=== PATIENT | female | born 1945 | race Hispanic/Latino ===

== ENCOUNTER 2016-07-02 15:26 | Inpatient (IN) | payer MEDICARE, MEDICAID ==
[2016-07-02] MEDS ORDERED: Gentamicin 500 MG in Sodium Chloride 0.9% 100 ML IVPB STA (16:04)
[2016-07-02] MEDS ORDERED: Vancomycin 1gm in NS 250ml 250 ML IVPB STA (16:04)
--- NOTE | 2016-07-02 16:11 | ED PDOC ---
Arrival/HPI - General Chief Complaint: Fever Time Seen by Provider: 07/02/16 15:28 Historian: Patient - History of Present Illness Narrative History of Present Illness (Text): 07/02/16 16:07 Mandy Miranda is a 71 year old female, whose past medical history includes COPD , ventral hernia, CAD, diabetes, and hyperuricemia, presents to the emergency department complaining of fever of 102.7F since 4:30 am today morning. Patient took Tylenol at 2:30 p.m. for minimal relief. Reports of difficulty breathing, but denies any nausea, vomiting, or diarrhea. Patient was advised to present to the emergency department for further evaluation if she developed a fever. Denies headache, dizziness, chest pain, leg pain, urinary symptoms, or any other complaints at this time. Time/Duration: Other (4:30 a.m. today ) Symptom Onset: Gradual Symptom Course: Unchanged Severity Level: Mild Activities at Onset: Light Context: Home Past Medical History - Provider Review Nursing Documentation Reviewed: Yes - Infectious Disease Hx of Infectious Diseases: None - Tetanus Immunization Tetanus Immunization: Unknown - Cardiac Hx Cardiac Disorders: Yes ([place] (2010), CAD) - Pulmonary Hx Chronic Obstructive Pulmonary Disease (COPD): Yes (has home o2) - Neurological HX Cerebrovascular Accident: No - HEENT Hx HEENT Disorder: Yes Hx Cataracts: Yes (b/l sx) Other/Comment: excision of benign r ear tumor denies hearing loss, but does have numbness to right ear/ neck post sx, sx done about 10 yrs ago - Renal Hx Renal Failure: Yes - Endocrine/Metabolic Hx Diabetes Mellitus Type 2: Yes - Hematological/Oncological Hx Anemia: Yes (iron infusions) Hx Hepatitis B: Yes (serum hep b 48 yrs ago) Other/Comment: treated by dr iqbal for iron deficiency anemia - Integumentary Hx Dermatological Disorder: Yes - Musculoskeletal/Rheumatological Hx Arthritis: Yes - Gastrointestinal Hx Gastrointestinal Disorders: Yes (umbilical hernia) Other/Comment: not a candidate for hernia sx as per pt due to multiple health issues - Genitourinary/Gynecological Hx Reproductive Disorders: Yes (partial hyst) - Psychiatric Hx Substance Use: No - Surgical History Hx Hysterectomy: Yes (partial) Other/Comment: CATARACTS, polypectomy, exc right ear benign tumor - Anesthesia Hx Anesthesia Reactions: No Hx Malignant Hyperthermia: No - Suicidal Assessment Feels Threatened In Home Enviroment: No Family/Social History - Physician Review Nursing Documentation Reviewed: Yes Family/Social History: No Known Family HX Smoking Status: Former Smoker Hx Alcohol Use: No Hx Substance Use: No Hx Substance Use Treatment: No Allergies/Home Meds Allergies/Adverse Reactions: Allergies FISH Allergy (Severe, Verified 06/03/16 01:40) THROAT SWELLING iodine Allergy (Verified 06/03/16 01:40) RASH oxaprozin [From Daypro] Allergy (Verified 06/03/16 01:40) RASH Penicillins Allergy (Verified 06/03/16 01:40) ANAPHYLAXIS Home Medications: Home Meds Medication Instructions Recorded Confirmed Albuterol HFA [Ventolin HFA 90 1 puff IH QID 05/29/16 06/03/16 mcg/actuation (8 g)] Furosemide [Lasix] 1 tab PO DAILY 05/29/16 07/02/16 Insulin Detemir [Levemir] 25 unit SC HS 05/29/16 07/02/16 Metoprolol Succinate XL [Toprol XL] 50 mg PO DAILY 05/29/16 07/02/16 Fenofibrate [Tricor] 145 mg PO DAILY 07/02/16 07/02/16 Primidone [Mysoline] 50 mg PO HS 07/02/16 07/02/16 Sulfamethoxazole/Trimethoprim 1 tab PO DAILY 07/02/16 07/02/16 [Bactrim DS 800 mg-160 mg] Review of Systems - Physician Review All systems were reviewed & negative as marked: Yes - Review of Systems Constitutional: Fevers. absent: Fatigue Respiratory: SOB. absent: Cough Cardiovascular: absent: Chest Pain Gastrointestinal: absent: Normal, Abdominal Pain, Diarrhea, Nausea Genitourinary Female: Normal. absent: Dysuria Neurological: Normal. absent: Headache, Dizziness Psychiatric: Normal Physical Exam Vital Signs Reviewed: Yes Vital Signs Temp Pulse Resp BP Pulse Ox 07/02/16 16:36 102.0 F H 07/02/16 16:20 98.7 F 07/02/16 15:53 107 H 20 117/62 96 Temperature: Afebrile Blood Pressure: Normal Pulse: Tachycardic Respiratory Rate: Normal Appearance: Positive for: Non-Toxic, Comfortable Pain Distress: None Mental Status: Positive for: Alert and Oriented X 3 Finger Stick Blood Glucose: 181 - Systems Exam Head: Present: Atraumatic, Normocephalic Pupils: Present: PERRL Conjunctiva: Present: Normal Respiratory/Chest: Present: Wheezes (diminished bilateral breath sounds with bilateral wheezing. ). No: Respiratory Distress, Accessory Muscle Use Cardiovascular: Present: Regular Rate and Rhythm, Normal S1, S2. No: Murmurs Abdomen: Present: Normal Bowel Sounds. No: Tenderness, Distention, Peritoneal Signs, Rebound, Guarding Upper Extremity: Present: Normal Inspection. No: Cyanosis, Edema Lower Extremity: Present: Normal Inspection. No: Edema Neurological: Present: GCS=15, CN II-XII Intact, Speech Normal Skin: Present: Warm, Dry, Normal Color. No: Rashes Psychiatric: Present: Alert, Oriented x 3, Normal Insight, Normal Concentration Medical Decision Making ED Course and Treatment: 07/02/16 16:14 Impression: A 71 year old female who presents to the emergency department for evaluation of fever of 102.7F since 4:30 am today. Plan: -- EKG -- Labs, cardiac enzymes -- Chest X-ray -- Cipro -- Duoneb -- Gentamicin -- Solumedrol -- Vancomycin -- Blood culture -- Urine culture -- Urinalysis -- Reassess and disposition Progress Notes: 07/02/16 16:16 EKG interpreted by me: Sinus Tachycardia @ [address]/T wave changes. 07/02/16 17:48 wheezing improving, although persisitent. noted previous culture with psuedomonas senstive to gent. cipro gent, vanco ordered. dr santiago bedside accepts. - Lab Interpretations Lab Results: 07/02/16 16:50 07/02/16 16:50 Lab Results 07/02/16 16:50: WBC 10.6, RBC 3.89, Hgb 11.5 L, Hct 35.4 L, MCV 91.0, MCH 29.6, MCHC 32.5, RDW 14.3, Plt Count 313, MPV 9.1, Gran % 83.5 H, Lymph % (Auto) 5.2 L , [place] % (Auto) 7.4 H, Eos % (Auto) 3.6, Baso % (Auto) 0.3, Gran # 8.87 H, Lymph # 0.6 L, [place] # 0.8 H, Eos # 0.4, Baso # 0.03, PT 11.5, INR 1.06, APTT 26.4, pO2 197 H, VBG pH 7.44 H, VBG pCO2 53.0, VBG HCO3 36.0 H, VBG Total CO2 37.6 H, VBG O2 Sat (Calc) 98.1 H, VBG Base Excess 9.9 H, VBG Potassium 4.2, Glucose 184 H, Lactate 1.6, FiO2 21.0, Sodium 131.0 L, Potassium 4.2, Chloride 93.0 L, Carbon Dioxide 37 H, Anion Gap 10, BUN 24 H, Creatinine 1.2, Est GFR ( Amer) 53, Est GFR (Non-Af Amer) 44, Random Glucose 189 H, Calcium 8.8, Magnesium 1.5 L, Total Bilirubin 0.6, AST 25, ALT 14, Alkaline Phosphatase 88, Lactate Dehydrogenase 478, Total Creatine Kinase 38, Troponin I < 0.01, NT-Pro- B Natriuret Pep 261, Total Protein 7.0, Albumin 3.3, Globulin 3.8, Albumin/ Globulin Ratio 0.9 L, Venous Blood Potassium 4.2 07/02/16 15:38: POC Glucose (mg/dL) 181 H I have reviewed the lab results: Yes - RAD Interpretation Radiology Orders: 07/02/16 15:52 CHEST PORTABLE [RAD] Stat Hammersmith Helper: ED Physician - EKG Interpretation Interpreted by ED Physician: Yes Type: 12 lead EKG - Medication Orders Current Medication Orders: Discontinued Medications Albuterol/Ipratropium (Duoneb 3 Mg/0.5 Mg (3 Ml) Ud) 3 ml IH Q15M BRIANNA Stop: 07/02/16 16:31 Last Admin: 07/02/16 17:21 Dose: 3 ML Ciprofloxacin (Cipro 400mg/200ml Dsw) 200 mls @ 133.3 mls/hr IVPB STAT STA PRN Reason: Protocol Stop: 07/02/16 17:34 Last Admin: 07/02/16 18:07 Dose: 133.3 MLS/HR eMAR Start Stop Document 07/02/16 18:07 OCS (Rec: 07/02/16 18:07 OCS [facility]-[id number]) Intravenous Solution Start Date 07/02/16 Start Time 18:07 Vancomycin HCl (Vancomycin 1gm) 250 mls @ 167 mls/hr IVPB STAT STA PRN Reason: Protocol Stop: 07/02/16 17:33 Gentamicin Sulfate 440 mg/ (Sodium Chloride) 111 mls @ 100 mls/hr IVPB STAT STA PRN Reason: Protocol Stop: 07/02/16 17:13 Ketorolac Tromethamine (Toradol) 30 mg IVP STAT STA Stop: 07/02/16 16:32 Last Admin: 07/02/16 17:06 Dose: Not Given Non-Admin Reason: Patient Refused IVP Administration Document 07/02/16 17:06 OCS (Rec: 07/02/16 17:06 [facility]CS [facility]-[id number]) Charges for Administration # of IVP Administrations 1 Methylprednisolone (Solu-Medrol) 125 mg IVP STAT STA Stop: 07/02/16 15:54 Last Admin: 07/02/16 17:05 Dose: 125 MG IVP Administration Document 07/02/16 17:05 OCS (Rec: 07/02/16 17:05 [facility] [id number] Charges for Administration # of IVP Administrations 1 - Scribe Statement The provider has reviewed the documentation as recorded by the Inder Bravo Provider Attestation: All medical record entries made by the Inder were at my direction and personally dictated by me. I have reviewed the chart and agree that the record accurately reflects my personal performance of the history, physical exam, medical decision making, and the department course for this patient. I have also personally directed, reviewed, and agree with the discharge instructions and disposition. Disposition/Present on Arrival - Present on Arrival Any Indicators Present on Arrival: No History of DVT/PE: No History of Uncontrolled Diabetes: No Urinary Catheter: No History of Decub. Ulcer: No History Surgical Site Infection Following: None - Disposition Have Diagnosis and Disposition been Completed?: Yes Diagnosis: Sepsis, Chronic obstructive airway disease Disposition Time: 17:48 Patient Problems: Current Active Problems Problem Status Diagnosed Chronic obstructive airway disease Acute Sepsis Acute Condition: FAIR Discharge Instructions (ExitCare): Sepsis (ED) Referrals: Mahi Sherman DO [Primary Care Provider] - Follow up with primary
[2016-07-02 17:04] LABS: ADD MANUAL DIFF? NO
[2016-07-02] MEDS: Albuterol-Ipratrop 3 mg / 0.5 (3 ml) UD IH SCH ×2 (17:05→17:21)
[2016-07-02] MEDS: Ciprofloxacin 400mg/200ml D5W 200 ML IVPB STA ×2 (17:06→18:07)
[2016-07-02 17:09] LABS: BASO # 0.03 K/mm3 (0.0-2.0); BASO % 0.3 % (0.0-3.0); EOS # 0.4 (0.0-0.7); EOS % 3.6 % (1.5-5.0); GRAN # 8.87 (1.4-6.5); GRAN % 83.5 % (50.0-68.0); HEMATOCRIT 35.4 % (36.0-48.0); LYMPH # 0.6 (1.2-3.4); LYMPH % 5.2 % (22.0-35.0); MEAN CORPUSCULAR HEMOGLOBIN 29.6 pg (25.0-35.0); MEAN CORPUSCULAR HGB CONC 32.5 g/dl (31.0-37.0); MEAN PLATELET VOLUME 9.1 fl (7.0-11.0); MONO # 0.8 (0.1-0.6); MONO % 7.4 % (1.0-6.0); PLATELET COUNT 313 10^3/uL (120.0-450.0); RED CELL DISTRIBUTION WIDTH 14.3 % (11.5-14.5); WHITE BLOOD COUNT 10.6 10^3/ul (4.5-11.0)
[2016-07-02 17:12] LABS: VENOUS BLOOD GAS BASE EXCESS 9.9 mmol/L (0.0-2.0); VENOUS BLOOD PH 7.44 (7.32-7.43)
[2016-07-02 17:18] LABS: INR 1.06 (0.93-1.08); PARTIAL THROMBOPLASTIN TIME 26.4 Seconds (23.7-30.8)
[2016-07-02 17:19] LABS: ALB/GLOB RATIO 0.9 (1.1-1.8); ALKALINE PHOSPHATASE 88 U/L (38-133); ALT/SGPT 14 U/L (7-56); AST/SGOT 25 U/L (15-39); BILIRUBIN,TOTAL 0.6 mg/dL (0.2-1.3); BLOOD UREA NITROGEN 24 mg/dL (7-21); CALCIUM 8.8 mg/dL (8.4-10.5); CARBON DIOXIDE 37 mmol/L (21-33); CHLORIDE 87 mmol/L (98-107); GFR AFRICAN-AMERICAN 53; GLUCOSE,RANDOM 189 mg/dL (70-110); MAGNESIUM 1.5 mg/dL (1.7-2.2); POTASSIUM 4.2 mmol/L (3.6-5.0); SODIUM 130 mmol/L (132-148)
[2016-07-02 17:32] LABS: TROPONIN I < 0.01 ng/mL
[2016-07-02] MEDS: Insulin Detemir 100 units/ml Vial (Levemir) SC SCH (21:53)
[2016-07-02] MEDS ORDERED: MethylPREDNISolone 40 mg Vial IVP SCH (22:00)
--- NOTE | 2016-07-02 22:16 | CP.PCM.HP ---
History of Present Illness - History of Present Illness History of Present Illness: Ms. Miranda is a 71 year old female presented to ED with shortness of breath. Dyspnea present at rest. She has history of COPD. she does not have frequent exacerbation. No chest pain. She also has history of CAD. EKG did not show acute changes. cardiac enzymes not elevated. She has history of chronic anemia. No history of bleeding. She has DM II on levemir. Sugars controlled on current regimen. She had fever for 1 day. Temp was 102.7 in ED. No rigors. Present on Admission - Present on Admission Any Indicators Present on Admission: No Review of Systems - Review of Systems Systems not reviewed;Unavailable: Respiratory Distress - Constitutional Constitutional: Fatigue, Fever, Malaise, Weakness - EENT Eyes: absent: As Per HPI, Blind Spots, Blurred Vision, Change in Vision, Decreased Night Vision, Diplopia, Discharge, Dry Eye, Exophthalmos, Floaters, Irritation, Itchy Eyes, Loss of Peripheral Vision, Pain, Photophobia, Requires Corrective Lenses, Sees Flashes, Spots in Vision, Tunnel Vision, Other Visual Disturbances, Loss of Vision, Other - Breasts Breasts: absent: As Per HPI, Change in Shape, Mass, Pain, Nipple Discharge, Nipple Inversion, Skin Changes, Swelling, Other - Cardiovascular Cardiovascular: As Per HPI, Dyspnea, Rapid Heart Rate - Respiratory Respiratory: Cough, Dyspnea. absent: As Per HPI, Hemoptysis, Dyspnea on Exertion, Wheezing, Snoring, Stridor, Pain on Inspiration, Chest Congestion, Excessive Mucous Production, Change in Mucous Color, Pain with Coughing, Other - Genitourinary Genitourinary: absent: As Per HPI, Change in Urinary Stream, Difficulty Urinating, Dysuria, Flank Pain, Hematuria, Pyuria, Nocturia, Urinary Incontinence, Urinary Frequency, Urinary Hesitance, Urinary Urgency, Voiding Freq/Small Amts, Freq UTI, Hx Renal/Bladder Calculi, Hx /Renal Surgery, Bladder Distension, Other - Musculoskeletal Musculoskeletal: absent: As Per HPI, Abnormal Gait, Arthralgias, Atrophy, Back Pain, Deformity, Joint Swelling, Limited Range of Motion, Loss of Height, Muscle Cramps, Muscle Weakness, Myalgias, Neck Pain, Numbness, Radiating Pain into Limb, Stiffness, Tingling, Other - Integumentary Integumentary: absent: As Per HPI, Acne, Alopecia, Bleeding Lesions, Change in Hair, Change in Nails, Change in Pigmentation, Changing Lesions, Dry Skin, Erythema, Furuncle, Hirsutism, Lesions, New Lesions, Non-Healing Lesions, Photosensitivity, Pruritus, Rash, Skin Pain, Skin Ulcer, Sores, Striae, Swelling , Unusual Bruising, Wounds, Jaundice, Other - Neurological Neurological: absent: As Per HPI, Abnormal Gait, Abnormal Hearing, Abnormal Movements, Abnormal Speech, Behavioral Changes, Burning Sensations, Confusion, Convulsions, Disequilibrium, Dizziness, Numbness, Focal Weakness, Frequent Falls , Headaches, Lack of Coordination, Loss of Vision, Memory Loss, Paresthesias, Radicular Pain, Restless Legs, Sensory Deficit, Syncope, Tingling, Tremor, Vertigo, Weakness, Other Visual Disturbances, Other - Psychiatric Psychiatric: absent: As Per HPI, Abnormal Sleep Pattern, Anhedonia, Anxiety, Auditory Hallucinations, Behavioral Changes, Change in Appetite, Change in Libido, Confusion, Depression, Difficulty Concentrating, Hallucinations, Homicidal Ideation, Hopelessness, Irritability, Memory Loss, Mood Swings, Panic Attacks, Paranoia, Suicidal Ideation, Visual Hallucinations, Tactile Hallucinations, Other - Endocrine Endocrine: absent: As Per HPI, Change in Body Appearance, Change in Libido, Cold Intolorance, Deepening of Voice, Excessive Sweating, Fatigue, Flushing, Heat Intolorance, Increase in Ring/Shoe/Hat Size, Palpitations, Polydipsia, Polyphagia, Polyuria, Other - Hematologic/Lymphatic Hematologic: As Per HPI Past Patient History - Infectious Disease Hx of Infectious Diseases: None - Tetanus Immunizations Tetanus Immunization: Unknown - Past Medical History & Family History Past Medical History?: Yes Past Family History: Reviewed and not pertinent - Past Social History Smoking Status: Former Smoker - CARDIAC Hx Cardiac Disorders: Yes ([place] (2010), CAD) - PULMONARY Hx Chronic Obstructive Pulmonary Disease (COPD): Yes (has home o2) - NEUROLOGICAL HX Cerebrovascular Accident: No - HEENT Hx HEENT Problems: Yes Hx Cataracts: Yes (b/l sx) Other/Comment: excision of benign r ear tumor denies hearing loss, but does have numbness to right ear/ neck post sx, sx done about 10 yrs ago - RENAL Hx Renal Failure: Yes - ENDOCRINE/METABOLIC Hx Diabetes Mellitus Type 2: Yes - HEMATOLOGICAL/ONCOLOGICAL Hx Anemia: Yes (iron infusions) Hx Hepatitis B: Yes (serum hep b 48 yrs ago) - INTEGUMENTARY Hx Dermatological Problems: Yes - MUSCULOSKELETAL/RHEUMATOLOGICAL Hx Arthritis: Yes - GASTROINTESTINAL Hx Gastrointestinal Disorders: Yes (umbilical hernia) Other/Comment: not a candidate for hernia sx as per pt due to multiple health issues - GENITOURINARY/GYNECOLOGICAL Hx Reproductive Disorders: Yes (partial hyst) - PSYCHIATRIC Hx Substance Use: No - SURGICAL HISTORY Hx Hysterectomy: Yes (partial) Other/Comment: CATARACTS, polypectomy, exc right ear benign tumor - ANESTHESIA Hx Anesthesia Reactions: No Hx Malignant Hyperthermia: No Meds Allergies/Adverse Reactions: Allergies Allergy/AdvReac Type Severity Reaction Status Date / Time FISH Allergy Severe THROAT Verified 06/03/16 01:40 SWELLING iodine Allergy RASH Verified 06/03/16 01:40 oxaprozin [From Daypro] Allergy RASH Verified 06/03/16 01:40 Penicillins Allergy ANAPHYLAXIS Verified 06/03/16 01:40 Physical Exam - Constitutional Appears: Well, Non-toxic, In Acute Distress - Head Exam Head Exam: ATRAUMATIC, NORMAL INSPECTION, NORMOCEPHALIC - Eye Exam Eye Exam: Normal appearance Pupil Exam: NORMAL ACCOMODATION - ENT Exam ENT Exam: Mucous Membranes Moist, Normal Exam, Normal Oropharynx - Neck Exam Neck exam: Positive for: Normal Inspection. Negative for: Full Rom, Lymphadenopathy, Meningismus, Tenderness, Thyromegaly - Respiratory Exam Respiratory Exam: Clear to Auscultation Bilateral, Rales, Rhonchi, Respiratory Distress, NORMAL BREATHING PATTERN - Cardiovascular Exam Cardiovascular Exam: REGULAR RHYTHM, +S1, +S2 - GI/Abdominal Exam GI & Abdominal Exam: Normal Bowel Sounds, Soft - Extremities Exam Extremities exam: Positive for: normal inspection. Negative for: calf tenderness, full ROM, joint swelling, normal capillary refill, pedal edema, tenderness, pedal pulses present - Neurological Exam Neurological exam: Alert, CN II-XII Intact, Normal Gait, Oriented x3, Reflexes Normal - Psychiatric Exam Psychiatric exam: Normal Affect, Normal Mood - Skin Skin Exam: Dry, Intact, Normal Color, Warm Results - Vital Signs Recent Vital Signs: Last Vital Signs Temp 102.0 F H 07/02/16 16:36 Pulse 107 H 07/02/16 15:53 Resp 20 07/02/16 15:53 BP 117/62 04/02/17 15:53 Pulse Ox 96 07/02/16 15:53 - Labs Result Diagrams: 07/02/16 16:50 07/02/16 16:50 Labs: Laboratory Results - last 24 hr 07/02/16 21:28 POC Glucose (mg/dL) 439 H* - EKG Data When Compared to Previous EKG: No Significant Change - Impressions Impression: MEDS: lipitor 10 mg daily, Levemir 25 units QHS, sigulair, aspirin, plavix, metoprolol. Assessment & Plan - Assessment and Plan (Free Text) Assessment: 1. COPD exacerbation. 2. Fever. 3. Anemia 4. Granulocytosis, lymphopenia 5. DM II 6. Bibasilar infiltrates. Plan: Solumedrol 125 mg IV given in ED. Solumedrol 25 mg IV Q 12 hrs. Received antibiotics IV cipro, genta, vanco in ED. Blood cultures, urine cultures sent. ID consult DR. Payne. CXR reviewed. bibasilar infiltrates. Duonebs Q 6hrs. O 2 by nasal canula. Glucose check QAC, HS, levemir 25 mg Q HS, sliding scale medium dose. Heme: anemia. history of iron deficiency. anemia work up. leukocytosis likely due to infection. continue imdur, metoprolol, aspirin, plavix. Discussed with the patient, bedside. Discussed with the staff nurse.
[2016-07-03 01:31] VITALS: BMI 24.3
[2016-07-03] MEDS ORDERED: Insulin Regular 1 UNITS/0.01 ML ML SC STA ×4 (03:12→06:14)
--- NOTE | 2016-07-03 03:37 | CP.PCM.PN ---
Subjective - Date & Time of Evaluation Date of Evaluation: 07/03/16 Time of Evaluation: 03:34 - Subjective Subjective: S:Patient was seen at bedside for FSBS greater than 500 mg %. Has no complaints now. Denies sweating, stomach pain, blurry vision , polyuria. Denies eating anything extra. Medical record was reviewed. Received 25 Units of Levmir. O: Last Vital Signs 3 Temp 98.0 F 07/03/16 00:50 Pulse 91 H 07/03/16 02:00 Resp 17 07/03/16 00:50 BP 143/83 07/03/16 00:50 Pulse Ox 99 07/02/16 22:00 Awake, alert, not in distress. LUNGS: Normal breathing pattern. NEURO:Speech normal. A:Hyperglycemia. P:Will give regular insulin SC now. Repeat FSBS in on hour. Objective - Vital Signs/Intake and Output Vital Signs (last 24 hours): Temp Pulse Resp BP Pulse Ox 98.0 F 91 H 17 143/83 99 07/03/16 00:50 07/03/16 02:00 07/03/16 00:50 07/03/16 00:50 07/02/16 22:00 - Medications Medications: Current Medications Albuterol/Ipratropium (Duoneb 3 Mg/0.5 Mg (3 Ml) Ud) 3 ml IH [id number] [facility] Aspirin (Ecotrin) 81 mg PO DAILY [facility] Atorvastatin Calcium (Lipitor) 20 mg PO DAILY [facility] Clopidogrel Bisulfate (Plavix) 75 mg PO DAILY [facility] Fenofibrate (Tricor) 145 mg PO DAILY [facility] Furosemide (Lasix) 40 mg IVP DAILY [facility] Insulin Detemir (Levemir) 25 unit SC HS [facility] Last Admin: 07/02/16 21:53 Dose: 25 unit Isosorbide Mononitrate (Imdur) 60 mg PO DAILY [facility] Lisinopril (Zestril) 30 mg PO DAILY [facility] Methylprednisolone (Solu-Medrol) 30 mg IVP Q12 [facility] Metoprolol Succinate (Toprol Xl) 50 mg PO DAILY [facility] Pantoprazole Sodium (Protonix Inj) 40 mg IVP DAILY [facility] Potassium Chloride (K-Dur 20 Meq Er Tab) 40 meq PO DAILY [facility] Primidone (Mysoline) 50 mg PO HS [facility] Last Admin: 07/02/16 22:42 Dose: 50 mg Ropinirole HCl (Requip) 2 mg PO HS BRIANNA Last Admin: 07/02/16 22:42 Dose: 2 mg - Labs Labs: PT 11.5 Seconds (9.9-11.8) 07/02/16 16:50 INR 1.06 (0.93-1.08) 07/02/16 16:50 APTT 26.4 Seconds (23.7-30.8) 07/02/16 16:50
[2016-07-03] MEDS: Albuterol-Ipratrop 3 mg / 0.5 (3 ml) UD IH SCH ×4 (04:46→20:27)
[2016-07-03] MEDS: Aztreonam 1 Gm in NS 100mL 100 ML IVPB SCH ×3 (07:00→21:18)
[2016-07-03 07:55] LABS: ADD MANUAL DIFF? NO
[2016-07-03 08:05] LABS: BASO # 0.02 K/mm3 (0.0-2.0); BASO % 0.2 % (0.0-3.0); GRAN # 7.71 (1.4-6.5); GRAN % 92.6 % (50.0-68.0); HEMATOCRIT 32.7 % (36.0-48.0); LYMPH # 0.4 (1.2-3.4); LYMPH % 4.9 % (22.0-35.0); MEAN CELL VOLUME 90.1 fL (80.0-105.0); MEAN CORPUSCULAR HEMOGLOBIN 28.7 pg (25.0-35.0); MEAN CORPUSCULAR HGB CONC 31.8 g/dl (31.0-37.0); MEAN PLATELET VOLUME 9.5 fl (7.0-11.0); MONO # 0.2 (0.1-0.6); MONO % 2.3 % (1.0-6.0); PLATELET COUNT 302 10^3/uL (120.0-450.0); RED CELL DISTRIBUTION WIDTH 14.4 % (11.5-14.5); WHITE BLOOD COUNT 8.3 10^3/ul (4.5-11.0)
[2016-07-03 08:28] LABS: CALCIUM 8.7 mg/dL (8.4-10.5); POTASSIUM 4.1 mmol/L (3.6-5.0)
[2016-07-03] MEDS: Metoprolol Succinate 50 mg XL Tab PO SCH (09:04)
[2016-07-03] MEDS: Insulin Reg-HIGH-Coverage SC SCH ×4 (09:06→21:20)
--- NOTE | 2016-07-03 09:20 | RAD ---
HISTORY: sob COMPARISON: 05/29/2016 and 01/10/2016 FINDINGS: LUNGS: Chronic interstitial changes are seen PLEURA: No significant pleural effusion identified, no pneumothorax apparent. CARDIOVASCULAR: Normal. OSSEOUS STRUCTURES: No significant abnormalities. VISUALIZED UPPER ABDOMEN: Normal. OTHER FINDINGS: None. IMPRESSION: No active disease. Chronic interstitial changes
[2016-07-03] MEDS ORDERED: Potassium Chloride 20 mEq ER Tab PO SCH (10:00)
[2016-07-03] MEDS ORDERED: Insulin Reg-HIGH-Coverage SC SCH (11:30)
[2016-07-03] MEDS ORDERED: MethylPREDNISolone 40 mg Vial IVP SCH ×2 (12:00→22:00)
--- NOTE | 2016-07-03 12:00 | CARD ---
APPROVED REPORT EKG Measurement Heart [id number] <Conclusion> Sinus tachycardia Anteroseptal infarct, age undetermined Abnormal ECG
[2016-07-03] MEDS: Linezolid 600 mg in D5W 300 ml 300 ML IVPB SCH (12:21)
--- NOTE | 2016-07-03 14:02 | CT ---
PROCEDURE: CT Chest without contrast HISTORY: sob/fever COMPARISON: 03/16/2016 TECHNIQUE: Contiguous axial images were obtained through the chest without intravenous contrast enhancement. Sagittal and coronal reconstructions were performed. Radiation dose (DLP): mGy-cm. This CT exam was performed using one or more of the following dose reduction techniques: Automated exposure control, adjustment of the mA and/or kV according to patient size, and/or use of iterative reconstruction technique. FINDINGS: LUNGS: There is no change in the diffuse emphysema seen in both lungs. There is bronchiectasis in the lower lobes especially on the right. There is also some bronchiectasis in the lingular segment of the left upper lobe. The findings are not significantly changed. MEDIASTINUM: Unremarkable thoracic aorta. No aneurysm. Normal sized heart. Main pulmonary artery unremarkable. No vascular congestion. No lymphadenopathy. PLEURA: No pleural fluid. No pneumothorax. BONES: No fracture. No destructive lesion. UPPER ABDOMEN: Grossly unremarkable. OTHER FINDINGS: None. IMPRESSION: Emphysema bronchiectasis and pulmonary fibrosis unchanged
--- NOTE | 2016-07-03 16:12 | CP.PCM.CON ---
History of Present Illness - History of Present Illness History of Present Illness: 71 year old female with PMH of end-stage chronic obstructive pulmonary disease with a history of pulmonary nodules , diabetes mellitus, coronary artery disease S/P cardiac catheterization and placement of cardiac stents, hypertension initially came in to [facility] because of worsening cough associated with feeling feverish yesterday. When she arrived in the ED, she was noted to have fever of 102 F. She denies colds, no sore throats, no body aches, no headache or dizziness, no nausea or vomiting, no chest pain, no abdominal pain, no dysuria, no diarrhea. She denies recent travel outside of [place] in the past 3 months and the patient has been recently admitted in Apr 2016 in [facility] Infectious diseases consult is requested to further evaluate and manage. Review of Systems - Review of Systems All systems: reviewed and no additional remarkable complaints except (as per HPI ) Past Patient History - Infectious Disease Hx of Infectious Diseases: None - Tetanus Immunizations Tetanus Immunization: Unknown - Past Medical History & Family History Past Medical History?: Yes Past Family History: Reviewed and not pertinent - Past Social History Smoking Status: Former Smoker Alcohol: None Drugs: Denies Home Situation {Lives}: With Family - CARDIAC Hx Cardiac Disorders: Yes ([place] (2009) CAD) Hx Hypercholesterolemia: Yes Hx Hypertension: Yes - PULMONARY Hx Asthma: Yes Hx Chronic Obstructive Pulmonary Disease (COPD): Yes Hx Emphysema: Yes Hx Pneumonia: Yes Hx Respiratory Tract Infection: Yes - NEUROLOGICAL HX Cerebrovascular Accident: No - HEENT Hx HEENT Problems: Yes Hx Cataracts: Yes - RENAL Hx Renal Failure: Yes - ENDOCRINE/METABOLIC Hx Diabetes Mellitus Type 2: Yes - HEMATOLOGICAL/ONCOLOGICAL Hx Hepatitis B: Yes - INTEGUMENTARY Hx Dermatological Problems: Yes - MUSCULOSKELETAL/RHEUMATOLOGICAL Hx Arthritis: Yes Hx Falls: No Hx Gout: Yes Hx Osteoarthritis: Yes Hx Unsteady Gait: Yes (walker at home) - GASTROINTESTINAL Hx Gastrointestinal Disorders: Yes (umbilical hernia) Other/Comment: not a candidate for hernia sx as per pt due to multiple health issues - GENITOURINARY/GYNECOLOGICAL Hx Reproductive Disorders: Yes (partial hyst) - PSYCHIATRIC Hx Substance Use: No - SURGICAL HISTORY Hx Surgeries: Yes Hx Coronary Stent: Yes - ANESTHESIA Hx Anesthesia Reactions: No Hx Malignant Hyperthermia: No Meds Allergies/Adverse Reactions: Allergies Allergy/AdvReac Type Severity Reaction Status Date / Time FISH Allergy Severe THROAT Verified 06/03/16 01:40 SWELLING iodine Allergy RASH Verified 06/03/16 01:40 oxaprozin [From Daypro] Allergy RASH Verified 06/03/16 01:40 Penicillins Allergy ANAPHYLAXIS Verified 06/03/16 01:40 - Medications Medications: Current Medications Albuterol/Ipratropium (Duoneb 3 Mg/0.5 Mg (3 Ml) Ud) 3 ml IH [id number] [facility] Last Admin: 07/03/16 04:46 Dose: 3 ml Aspirin (Ecotrin) 81 mg PO DAILY [facility] Atorvastatin Calcium (Lipitor) 20 mg PO DAILY [facility] Clopidogrel Bisulfate (Plavix) 75 mg PO DAILY [facility] Fenofibrate (Tricor) 145 mg PO DAILY [facility] Furosemide (Lasix) 40 mg IVP DAILY [facility] Doxycycline Hyclate 100 mg/ (Sodium Chloride) 100 mls @ 100 mls/hr IVPB Q12 [facility] PRN Reason: Protocol Aztreonam (Azactam 1 Gm) 100 mls @ 100 mls/hr IVPB Q8 [facility] PRN Reason: Protocol Stop: 07/10/16 06:31 Linezolid (Zyvox 600mg/300ml D5w) 300 mls @ 200 mls/hr IVPB Q12 [facility] PRN Reason: Protocol Stop: 07/10/16 10:01 Insulin Detemir (Levemir) 25 unit SC [facility] Last Admin: 07/02/16 21:53 Dose: 25 unit Isosorbide Mononitrate (Imdur) 60 mg PO DAILY [facility] Lisinopril (Zestril) 30 mg PO DAILY [facility] Methylprednisolone (Solu-Medrol) 30 mg IVP Q12 [facility] Metoprolol Succinate (Toprol Xl) 50 mg PO DAILY [facility] Pantoprazole Sodium (Protonix Inj) 40 mg IVP DAILY [facility] Potassium Chloride (K-Dur 20 Meq Er Tab) 40 meq PO DAILY [facility] Primidone (Mysoline) 50 mg PO [facility] Last Admin: 07/02/16 22:42 Dose: 50 mg Ropinirole HCl (Requip) 2 mg PO [facility] Last Admin: 07/02/16 22:42 Dose: 2 mg Physical Exam - Constitutional Appears: Non-toxic, No Acute Distress - Head Exam Head Exam: NORMAL INSPECTION - ENT Exam ENT Exam: Mucous Membranes Moist - Neck Exam Neck exam: Negative for: Lymphadenopathy, Meningismus - Respiratory Exam Respiratory Exam: Decreased Breath Sounds - Cardiovascular Exam Cardiovascular Exam: +S1, +S2 - GI/Abdominal Exam GI & Abdominal Exam: Soft. absent: Tenderness Results - Vital Signs Recent Vital Signs: Last Vital Signs Temp 98.0 F 07/03/16 00:50 Pulse 91 H 07/03/16 02:00 Resp 17 07/03/16 00:50 BP 143/83 07/03/16 00:50 Pulse Ox 99 07/02/16 22:00 - Labs Result Diagrams: 07/03/16 07:40 07/03/16 07:40 Labs: Laboratory Results - last 24 hr 07/02/16 21:28 POC Glucose (mg/dL) 439 H* Assessment & Plan - Assessment and Plan (Free Text) Plan: assessment Systemic Inflammatory Response Syndrome (Fever and tachypnea) R/O sepsis secondary to healthcare-associated pneumonia in a patient with acute exacerbation of COPD history of multifocal community-acquired pneumonia end-stage chronic obstructive pulmonary disease with a history of pulmonary nodules diabetes mellitus coronary artery disease S/P cardiac catheterization and placement of cardiac stents hypertension Questionable history of penicillin allergy (rash) and Doxycycline (although she has tolerated doxycycline in past admissions) Plan started patient on Doxycycline, Zyvox and doxycycline pending blood, sputum cx, PCT; will review CXR; rapid Influenza test is negative Will monitor clinical response
--- NOTE | 2016-07-03 16:27 | DS ---
The patient is a 71-year-old, seen and examined, sitting in bed, comfortable. No chest pain, no shor tness of breath, no fever, no chills, no nausea or vomiting, no diarrhea. The patient states she spi ked fever at home and when she came to the ER her temperature [id number]. Since then, there is no spikin g fever. The patient denies any nausea or vomiting. She does have cough with occasional yellow phle gm, no hemoptysis or hematemesis. PHYSICAL EXAMINATION: VITAL SIGNS: She is afebrile today. Pulse 96, respirations 17, blood pressure 143/83. LUNGS: Bilateral diffusely decreased breath sounds, that is at baseline. expiratory rhonchi. HEART: S1, S2 audible. ABDOMEN: Soft, nontender, no rebound, no guarding. NEUROLOGIC: The patient is awake and alert, communicative. LABORATORY EXAM: WBC is 8.3, hemoglobin 10.4, hematocrit 32.7, platelets 302. Chemistry: Sodium 12 9, potassium 4.1, chloride 86, CO2 31, BUN 28, creatinine 1.3, blood sugar of 209. Lactic acid is 3. 2. Flu test is negative. X-ray of chest is negative for pneumonia and only shows chronic interstit ial changes. EKG, sinus tachycardia. ASSESSMENT AND PLAN: 1. Chronic obstructive pulmonary disease exacerbation with a spike of fever, probably bronchitis. 2. Hypertension. 3. Coronary artery disease. 4. Deconditioning and difficulty walking. 5. Ventral hernia. 6. Insulin-dependent diabetes. PLAN: We will cut down the steroids. We will get CT scan of the chest. If there is no evidence of pneumonia the patient can be discharged home on oral doxycycline and tapering dose of steroids. Enco urage out of bed to chair and ambulation. Ten Sher MD cc: [phone] TT: 07/03/2016 16:26:23 wa
[2016-07-03] MEDS: Insulin Lispro (humaLOG) MIX 75/25(10 ml) SC SCH (17:38)
[2016-07-03] MEDS: MethylPREDNISolone 40 mg Vial IVP SCH (21:17)
[2016-07-03] MEDS: Insulin Detemir 100 units/ml Vial (Levemir) SC SCH (21:21)
--- NOTE | 2016-07-03 23:13 | CP.PCM.PN ---
Subjective - Date & Time of Evaluation Date of Evaluation: 07/03/16 Time of Evaluation: 23:12 - Subjective Subjective: # 22 angiocath was inserted in left forearm Dx:Poor venous access. Objective - Vital Signs/Intake and Output Vital Signs (last 24 hours): Temp Pulse Resp BP Pulse Ox 983 F H 100 H 20 111/55 L 99 07/03/16 20:06 07/03/16 20:06 07/03/16 20:06 07/03/16 20:06 07/02/16 22:00 Intake and Output: 07/03/16 07/04/16 18:59 06:59 Intake Total 600 Output Total 400 Balance 200 - Medications Medications: Current Medications Albuterol/Ipratropium (Duoneb 3 Mg/0.5 Mg (3 Ml) Ud) 3 ml IH [id number] [facility] Last Admin: 07/03/16 20:27 Dose: 3 ml Aspirin (Ecotrin) 81 mg PO DAILY [facility] Last Admin: 07/03/16 09:04 Dose: 81 mg Atorvastatin Calcium (Lipitor) 20 mg PO DAILY [facility] Last Admin: 07/03/16 09:04 Dose: 20 mg Clopidogrel Bisulfate (Plavix) 75 mg PO DAILY [facility] Last Admin: 07/03/16 09:03 Dose: 75 mg Fenofibrate (Tricor) 145 mg PO DAILY [facility] Last Admin: 07/03/16 09:04 Dose: 145 mg Furosemide (Lasix) 40 mg IVP DAILY [facility] Last Admin: 07/03/16 09:05 Dose: 40 mg Doxycycline Hyclate 100 mg/ (Sodium Chloride) 100 mls @ 100 mls/hr IVPB Q12 [facility] PRN Reason: Protocol Last Admin: 07/03/16 22:40 Dose: 100 mls/hr Aztreonam (Azactam 1 Gm) 100 mls @ 100 mls/hr IVPB Q8 [facility] PRN Reason: Protocol Stop: 07/10/16 06:31 Last Admin: 07/03/16 21:18 Dose: 100 mls/hr Linezolid (Zyvox 600mg/300ml D5w) 300 mls @ 200 mls/hr IVPB Q12 [facility] PRN Reason: Protocol Stop: 07/10/16 10:01 Last Admin: 07/03/16 12:21 Dose: 200 mls/hr Insulin Detemir (Levemir) 25 unit SC HS [facility] Last Admin: 07/03/16 21:21 Dose: 25 unit Insulin Human Regular (Humulin R High) 0 units SC ACHS [facility] PRN Reason: Protocol Last Admin: 07/03/16 21:20 Dose: 3 units Insulin Lispro Protam/Lispro Human (Humalog Mix 75/25) 15 units SC ACBD [facility] Last Admin: 07/03/16 17:38 Dose: 15 units Isosorbide Mononitrate (Imdur) 60 mg PO DAILY [facility] Last Admin: 07/03/16 09:02 Dose: 60 mg Lisinopril (Zestril) 30 mg PO DAILY [facility] Last Admin: 07/03/16 09:03 Dose: 30 mg Methylprednisolone (Solu-Medrol) 20 mg IVP Q12 [facility] Last Admin: 07/03/16 21:17 Dose: 20 mg Metoprolol Succinate (Toprol Xl) 50 mg PO DAILY [facility] Last Admin: 07/03/16 09:04 Dose: 50 mg Pantoprazole Sodium (Protonix Inj) 40 mg IVP DAILY [facility] Last Admin: 07/03/16 09:05 Dose: 40 mg Potassium Chloride (K-Dur 20 Meq Er Tab) 40 meq PO DAILY [facility] Last Admin: 07/03/16 09:03 Dose: 40 meq Primidone (Mysoline) 50 mg PO HS [facility] Last Admin: 07/03/16 21:20 Dose: 50 mg Ropinirole HCl (Requip) 2 mg PO HS [facility] Last Admin: 07/03/16 21:20 Dose: 2 mg - Labs Labs: 07/03/16 07:40 07/03/16 07:40 PT 11.5 Seconds (9.9-11.8) 07/02/16 16:50 INR 1.06 (0.93-1.08) 07/02/16 16:50 APTT 26.4 Seconds (23.7-30.8) 07/02/16 16:50
[2016-07-04] MEDS: Linezolid 600 mg in D5W 300 ml 300 ML IVPB SCH ×3 (00:20→23:38)
[2016-07-04] MEDS: Albuterol-Ipratrop 3 mg / 0.5 (3 ml) UD IH SCH ×4 (01:46→20:34)
[2016-07-04] MEDS ORDERED: Insulin Regular 1 UNITS/0.01 ML ML SC STA ×4 (02:19→04:51)
--- NOTE | 2016-07-04 02:22 | CP.PCM.PN ---
Subjective - Date & Time of Evaluation Date of Evaluation: 07/04/16 Time of Evaluation: 02:22 - Subjective Subjective: S:Patient was seen at bedside because her fsbs was 439 mg %. Has no complaints. Denies blurry vision, stomach pain, polyuria, parasthesia. Medical record was reviewed. O: Last Vital Signs 3 Temp 97.8 F 07/04/16 00:01 Pulse 96 H 07/04/16 02:00 Resp 18 07/04/16 00:01 BP 131/66 07/04/16 00:01 Pulse Ox 96 07/04/16 00:01 Awake, alert , not in distress. LUNGS: Normal breathing pattern. A:Hyperglycemia. P:Regular insulin 15 Units SC STAT. Objective - Vital Signs/Intake and Output Vital Signs (last 24 hours): Temp Pulse Resp BP Pulse Ox 97.8 F 97 H 18 131/66 96 07/04/16 00:01 07/04/16 00:01 07/04/16 00:01 07/04/16 00:01 07/04/16 00:01 Intake and Output: 07/03/16 07/04/16 18:59 06:59 Intake Total 600 Output Total 400 Balance 200 - Medications Medications: Current Medications Albuterol/Ipratropium (Duoneb 3 Mg/0.5 Mg (3 Ml) Ud) 3 ml IH [id number] Last Admin: 07/04/16 01:46 Dose: Not Given Aspirin (Ecotrin) 81 mg PO DAILY [facility] Last Admin: 07/03/16 09:04 Dose: 81 mg Atorvastatin Calcium (Lipitor) 20 mg PO DAILY [facility] Last Admin: 07/03/16 09:04 Dose: 20 mg Clopidogrel Bisulfate (Plavix) 75 mg PO DAILY [facility] Last Admin: 07/03/16 09:03 Dose: 75 mg Fenofibrate (Tricor) 145 mg PO DAILY [facility] Last Admin: 07/03/16 09:04 Dose: 145 mg Furosemide (Lasix) 40 mg IVP DAILY [facility] Last Admin: 07/03/16 09:05 Dose: 40 mg Doxycycline Hyclate 100 mg/ (Sodium Chloride) 100 mls @ 100 mls/hr IVPB Q12 [facility] PRN Reason: Protocol Last Admin: 07/03/16 22:40 Dose: 100 mls/hr Aztreonam (Azactam 1 Gm) 100 mls @ 100 mls/hr IVPB Q8 [facility] PRN Reason: Protocol Stop: 07/10/16 06:31 Last Admin: 07/03/16 21:18 Dose: 100 mls/hr Linezolid (Zyvox 600mg/300ml D5w) 300 mls @ 200 mls/hr IVPB Q12 [facility] PRN Reason: Protocol Stop: 07/10/16 10:01 Last Admin: 07/04/16 00:20 Dose: 200 mls/hr Insulin Detemir (Levemir) 25 unit SC HS [facility] Last Admin: 07/03/16 21:21 Dose: 25 unit Insulin Human Regular (Humulin R High) 0 units SC ACHS [facility] PRN Reason: Protocol Last Admin: 07/03/16 21:20 Dose: 3 units Insulin Human Regular (Humulin R) 15 units SC STAT [facility] Stop: 07/04/16 02:20 Insulin Human Regular (Humulin R) 15 units SC STAT [facility] Stop: 07/04/16 02:21 Insulin Lispro Protam/Lispro Human (Humalog Mix 75/25) 15 units SC ACBD [facility] Last Admin: 07/03/16 17:38 Dose: 15 units Isosorbide Mononitrate (Imdur) 60 mg PO DAILY [facility] Last Admin: 07/03/16 09:02 Dose: 60 mg Lisinopril (Zestril) 30 mg PO DAILY [facility] Last Admin: 07/03/16 09:03 Dose: 30 mg Methylprednisolone (Solu-Medrol) 20 mg IVP Q12 [facility] Last Admin: 07/03/16 21:17 Dose: 20 mg Metoprolol Succinate (Toprol Xl) 50 mg PO DAILY [facility] Last Admin: 07/03/16 09:04 Dose: 50 mg Pantoprazole Sodium (Protonix Inj) 40 mg IVP DAILY [facility] Last Admin: 07/03/16 09:05 Dose: 40 mg Potassium Chloride (K-Dur 20 Meq Er Tab) 40 meq PO DAILY [facility] Last Admin: 07/03/16 09:03 Dose: 40 meq Primidone (Mysoline) 50 mg PO HS [facility] Last Admin: 07/03/16 21:20 Dose: 50 mg Ropinirole HCl (Requip) 2 mg PO HS [facility] Last Admin: 07/03/16 21:20 Dose: 2 mg - Labs Labs: 07/03/16 07:40 07/03/16 07:40 PT 11.5 Seconds (9.9-11.8) 07/02/16 16:50 INR 1.06 (0.93-1.08) 07/02/16 16:50 APTT 26.4 Seconds (23.7-30.8) 07/02/16 16:50
[2016-07-04] MEDS: Aztreonam 1 Gm in NS 100mL 100 ML IVPB SCH ×3 (05:12→21:35)
[2016-07-04] MEDS: Insulin Lispro (humaLOG) MIX 75/25(10 ml) SC SCH ×2 (07:44→19:33)
[2016-07-04] MEDS: Insulin Reg-HIGH-Coverage SC SCH ×4 (07:45→22:28)
[2016-07-04 07:56] LABS: HEMATOCRIT 31.9 % (36.0-48.0); MEAN CELL VOLUME 89.4 fL (80.0-105.0); MEAN CORPUSCULAR HEMOGLOBIN 28.9 pg (25.0-35.0); MEAN CORPUSCULAR HGB CONC 32.3 g/dl (31.0-37.0); MEAN PLATELET VOLUME 9.5 fl (7.0-11.0); RED CELL DISTRIBUTION WIDTH 14.2 % (11.5-14.5); WHITE BLOOD COUNT 20.3 10^3/ul (4.5-11.0)
[2016-07-04 08:02] LABS: ALB/GLOB RATIO 0.9 (1.1-1.8); ALKALINE PHOSPHATASE 74 U/L (38-133); ALT/SGPT 27 U/L (7-56); AST/SGOT 34 U/L (15-39); BILIRUBIN,TOTAL 0.4 mg/dL (0.2-1.3); BLOOD UREA NITROGEN 29 mg/dL (7-21); CALCIUM 8.8 mg/dL (8.4-10.5); CARBON DIOXIDE 33 mmol/L (21-33); CHLORIDE 87 mmol/L (98-107); GFR AFRICAN-AMERICAN > 60; GLUCOSE,RANDOM 257 mg/dL (70-110); POTASSIUM 5.2 mmol/L (3.6-5.0); SODIUM 128 mmol/L (132-148); TOTAL PROTEIN 6.9 g/dL (5.8-8.3)
[2016-07-04] MEDS: MethylPREDNISolone 40 mg Vial IVP SCH (10:05)
[2016-07-04] MEDS: Metoprolol Succinate 50 mg XL Tab PO SCH (10:07)
[2016-07-04] MEDS ORDERED: Sod Polystyrene Sulf 15 gm/60 ml Oral Susp PO ONE (10:34)
--- NOTE | 2016-07-04 12:53 | PN ---
DATE: 07/04/2016 The patient is 71 years old, seen and examined sitting in chair. States, "I feel lousy, I feel tired , I feel weak." Trouble breathing when she walks a little distance. PHYSICAL EXAMINATION: VITAL SIGNS: She is afebrile, pulse 93, respirations 20, blood pressure 138/68. LUNGS: Bilateral diffusely decreased breath sounds with scattered generalized crackles. HEART: S1, S2 audible. ABDOMEN: Soft, nontender, no rebound, no guarding. NEUROLOGIC: The patient is awake and alert, communicative, moves all extremities. EXTREMITIES: Bilateral legs, no edema. LABORATORY EXAMINATION: WBC is 20.3, hemoglobin 10, hematocrit 31, platelet 359. Chemistry: Sodium 128, potassium 5.2, chloride ____, CO2 33, BUN 29, creatinine 1.0, blood sugar 192. Flu test is neg ative. ASSESSMENT: 1. Chronic obstructive pulmonary disease exacerbation. 2. Admission with high-grade fever. No source of infection. Probably respiratory. 3. Uncontrolled hypertension. 4. Coronary artery disease. 5. Hyperlipidemia. 6. Hypertension. PLAN: Will cut down the patient's steroid. She is hyperkalemic, so I will give 1 dose of Kayexalate . She is currently on Zyvox 600 twice a day. Cut down the steroids. Continue antibiotic as per ID. Follow up CBC in a.m. If we see downward trend of WBC, will make a discharge plan. Ten Sher MD cc: [phone] TT: 07/04/2016 12:53:20 Confirmation # [id number] Dictation # [id number]
[2016-07-04] MEDS ORDERED: Oxycodone/Acetaminophen 5/325 mg Tab PO PRN (20:11)
[2016-07-04] MEDS: Latanoprost 2.5 ml Opht Soln OU SCH (21:34)
[2016-07-04] MEDS: Insulin Detemir 100 units/ml Vial (Levemir) SC SCH (22:29)
[2016-07-05] MEDS: Albuterol-Ipratrop 3 mg / 0.5 (3 ml) UD IH SCH ×4 (01:33→20:30)
[2016-07-05] MEDS: Aztreonam 1 Gm in NS 100mL 100 ML IVPB SCH ×3 (05:24→22:19)
[2016-07-05 07:47] LABS: ADD MANUAL DIFF? NO
[2016-07-05 07:56] LABS: BASO # 0.02 K/mm3 (0.0-2.0); BASO % 0.2 % (0.0-3.0); EOS # 0.1 (0.0-0.7); EOS % 0.7 % (1.5-5.0); GRAN # 8.32 (1.4-6.5); GRAN % 63.3 % (50.0-68.0); LYMPH % 22.5 % (22.0-35.0); MEAN CELL VOLUME 89.9 fL (80.0-105.0); MEAN CORPUSCULAR HEMOGLOBIN 28.9 pg (25.0-35.0); MEAN CORPUSCULAR HGB CONC 32.1 g/dl (31.0-37.0); MEAN PLATELET VOLUME 9.2 fl (7.0-11.0); MONO # 1.7 (0.1-0.6); MONO % 13.3 % (1.0-6.0); PLATELET COUNT 346 10^3/uL (120.0-450.0); RED CELL DISTRIBUTION WIDTH 14.2 % (11.5-14.5); WHITE BLOOD COUNT 13.1 10^3/ul (4.5-11.0)
[2016-07-05] MEDS: Insulin Reg-HIGH-Coverage SC SCH ×4 (08:00→22:20)
[2016-07-05] MEDS: Insulin Lispro (humaLOG) MIX 75/25(10 ml) SC SCH ×2 (08:00→17:20)
[2016-07-05 08:08] LABS: ALKALINE PHOSPHATASE 64 U/L (38-133); ALT/SGPT 28 U/L (7-56); AST/SGOT 29 U/L (15-39); BILIRUBIN,TOTAL 0.4 mg/dL (0.2-1.3); CALCIUM 8.7 mg/dL (8.4-10.5); CARBON DIOXIDE 40 mmol/L (21-33); CHLORIDE 86 mmol/L (95-110); GFR AFRICAN-AMERICAN > 60; GLUCOSE,RANDOM 90 mg/dL (70-110); MAGNESIUM 1.4 mg/dL (1.7-2.2); POTASSIUM 4.5 mmol/L (3.6-5.0); SODIUM 132 mmol/L (132-148); TOTAL PROTEIN 6.5 g/dL (5.8-8.3)
[2016-07-05 08:18] LABS: BLOOD UREA NITROGEN 29 mg/dL (7-21)
[2016-07-05] MEDS: Metoprolol Succinate 50 mg XL Tab PO SCH (10:57)
--- NOTE | 2016-07-05 19:50 | PN ---
DATE: 07/05/2016 SUBJECTIVE: The patient is a 71-year-old, seen and examined, sitting in chair. Complained of having wheezing and gets short of breath on walking. No fever, no chills, no nausea, vomiting, no diarrhea . PHYSICAL EXAMINATION: VITAL SIGNS: She is afebrile, pulse 80, respirations 20, blood pressure 124/60. LUNGS: Bilateral expiratory rhonchi, diffuse, more pronounced posteriorly. HEART: S1, S2 audible. ABDOMEN: Soft, nontender, no rebound, no guarding. She has ventral hernia that is reducible. NEUROLOGIC: She is awake and alert, communicative. LABORATORY EXAMINATION: WBC is 13.1, hemoglobin 10.6, hematocrit 33, platelets 346. Chemistry: Sod ium 132, potassium 4.5, chloride 86, CO2 40, BUN 29, creatinine ____, blood sugar is 135. Blood cult ure and urine cultures are negative. ASSESSMENT: 1. Chronic obstructive pulmonary disease exacerbation. 2. Bronchospasm. 3. Bronchiectasis. 4. Pulmonary fibrosis. 5. Coronary artery disease. 6. Non-insulin dependent diabetes. PLAN: I will continue patient on current regimen. Since she was changed to p.o. prednisone she star deanna to have more pronounced wheezing. I will put her back on 30 mg of Solu-Medrol and request for TC U evaluation. If accepted, she can be transferred to TCU where she can be closely monitored ____ and physical therapy. Ten Sher MD cc: [phone] TT: 07/05/2016 19:49:32 Confirmation # [id number] Dictation # [id number]
[2016-07-05 21:42] VITALS: TEMP 98.2
[2016-07-05] MEDS: Insulin Detemir 100 units/ml Vial (Levemir) SC SCH (22:21)
[2016-07-05] MEDS: MethylPREDNISolone 40 mg Vial IV SCH (22:23)
[2016-07-05] MEDS: Latanoprost 2.5 ml Opht Soln OU SCH (22:25)
[2016-07-06] MEDS: Albuterol-Ipratrop 3 mg / 0.5 (3 ml) UD IH SCH ×3 (02:06→13:41)
[2016-07-06] MEDS: Aztreonam 1 Gm in NS 100mL 100 ML IVPB SCH ×2 (06:08→14:08)
[2016-07-06 07:33] LABS: HEMATOCRIT 32.7 % (36.0-48.0); MEAN CELL VOLUME 90.3 fL (80.0-105.0); MEAN CORPUSCULAR HEMOGLOBIN 28.7 pg (25.0-35.0); MEAN CORPUSCULAR HGB CONC 31.8 g/dl (31.0-37.0); RED CELL DISTRIBUTION WIDTH 14.3 % (11.5-14.5); WHITE BLOOD COUNT 8.8 10^3/ul (4.5-11.0)
[2016-07-06 07:56] LABS: ALB/GLOB RATIO 0.9 (1.1-1.8); ALKALINE PHOSPHATASE 65 U/L (38-133); ALT/SGPT 35 U/L (7-56); AST/SGOT 27 U/L (15-39); BILIRUBIN,TOTAL 0.4 mg/dL (0.2-1.3); BLOOD UREA NITROGEN 27 mg/dL (7-21); CALCIUM 8.5 mg/dL (8.4-10.5); CARBON DIOXIDE 38 mmol/L (21-33); CHLORIDE 87 mmol/L (98-107); GFR AFRICAN-AMERICAN > 60; GLUCOSE,RANDOM 197 mg/dL (70-110); POTASSIUM 4.9 mmol/L (3.6-5.0); SODIUM 130 mmol/L (132-148); TOTAL PROTEIN 6.3 g/dL (5.8-8.3)
[2016-07-06 08:28] VITALS: BP 133/68; PULSE 70; RESP 18; O2SAT 97
[2016-07-06] MEDS: Insulin Reg-HIGH-Coverage SC SCH ×2 (09:06→11:54)
[2016-07-06] MEDS: Insulin Lispro (humaLOG) MIX 75/25(10 ml) SC SCH (09:07)
[2016-07-06] MEDS: MethylPREDNISolone 40 mg Vial IV SCH (09:31)
[2016-07-06] MEDS: Metoprolol Succinate 50 mg XL Tab PO SCH (09:32)
--- NOTE | 2016-07-06 13:47 | DS ---
The patient is a 71-year-old, seen and examined, sitting in chair. Complained of cough, congestion. Complained of vaginal itching. States she has vaginitis after she had steroids. PHYSICAL EXAMINATION: GENERAL: Complained of cough, wheezing, no fever or chills, no nausea or vomiting. VITAL SIGNS: She is afebrile, pulse 70, respirations 18, blood pressure 133/68. LUNGS: Bilateral fair airflow, no rhonchi or crackle. HEART: S1, S2 audible. ABDOMEN: Soft, nontender, no rebound, no guarding. NEUROLOGIC: The patient is awake and alert, communicative. EXTREMITIES: Bilateral legs, no edema. LABORATORY EXAMINATION: WBC today is 8.8, hemoglobin 10.4, hematocrit 32.7, platelet of 312. Chemis try: Sodium 130, potassium 4.9, chloride , CO2 38, BUN 27, creatinine 0.9, blood sugar of 215. Blood culture negative. Urine is negative. Sputum is positive for gram-negative rods, could be col onization. ASSESSMENT: 1. Chronic obstructive pulmonary disease exacerbation. 2. Bronchospasm. 3. Bronchiectasis. 4. Pulmonary fibrosis. 5. Coronary artery disease. 6. Hypertension. 7. Insulin-dependent diabetes. PLAN: Continue patient on current medication that includes Azactam, nebulizer treatment, aspirin. P otassium will be supplemented. She is on Lasix and Mysoline, analgesic as needed. We will reevaluat e patient in a.m. Ten Sher MD cc: [phone] TT: 07/06/2016 13:46:18 en
--- NOTE | 2016-07-06 19:01 | CP.PCM.PN ---
Subjective - Date & Time of Evaluation Date of Evaluation: 07/06/16 Time of Evaluation: 10:00 - Subjective Subjective: Comfortable in bed, not in distress, no fevers overnight, breathing better. Objective - Vital Signs/Intake and Output Vital Signs (last 24 hours): Temp Pulse Resp BP Pulse Ox 98.2 F 70 18 133/68 97 07/05/16 16:30 07/06/16 09:32 07/06/16 06:00 07/06/16 09:32 07/06/16 06:00 Intake and Output: 07/06/16 07/06/16 06:59 18:59 Intake Total 1680 480 Output Total 500 Balance 1180 480 - Labs Labs: 07/06/16 07:00 07/06/16 07:00 PT 11.5 Seconds (9.9-11.8) 07/02/16 16:50 INR 1.06 (0.93-1.08) 07/02/16 16:50 APTT 26.4 Seconds (23.7-30.8) 07/02/16 16:50 - Constitutional Appears: Non-toxic, No Acute Distress - Head Exam Head Exam: NORMAL INSPECTION - Respiratory Exam Respiratory Exam: Decreased Breath Sounds - Cardiovascular Exam Cardiovascular Exam: +S1, +S2 - GI/Abdominal Exam GI & Abdominal Exam: Soft. absent: Tenderness Assessment and Plan - Assessment and Plan (Free Text) Plan: assessment consider sepsis secondary to atypical healthcare-associated pneumonia in a patient with acute exacerbation of COPD, slowly improving history of multifocal community-acquired pneumonia end-stage chronic obstructive pulmonary disease with a history of pulmonary nodules diabetes mellitus coronary artery disease S/P cardiac catheterization and placement of cardiac stents hypertension Questionable history of penicillin allergy (rash) and Doxycycline (although she has tolerated doxycycline in past admissions) Plan on Doxycycline, Zyvox and azactam (day 3) to complete a 4-7 day course - can be switched to Levaquin to complete the course of therapy
--- NOTE | 2016-07-07 09:02 | PQF SEPSIS ---
This form is a permanent part of the medical record Dr. Sher, Your discharge summary reflects acute exacerbation of COPD as PDX. As per ID Dr. Acosta he indicated in his assessment "consider sepsis secondary to atypical healthcare-associated pneumonia". Do you agree or disagree with SEPSIS and HC PNEUMONIA ? Thank you. Clarification of your documentation is requested to better reflect the severity of illness and intensity of treatment of your patient. Indicators present [] Temp < 96.8 or > 100.4 [x] WBC count > 12,000/mm3 or <000/mm3 or 10% immature neutrophils [] Heart Rate > 90 [x] Respiratory Rate > 20 [] Fever or hypothermia [] Chills [] Positive blood cultures [] Hypotension [] Metabolic acidosis (Elevated lactate level, anion gap or reduced blood pH) [] Acute confusion /Altered Mental Status [] Shock [] Other: [] Location in the medical record that reflects the above clinical findings: [] / PN Treatment Provided: [] Doxycycline, Zyvox, Azactam PHYSICIAN'S RESPONSE Based on your medical judgment of the clinical indicators outlined above, are you treating this patient for a known or suspected: [] Sepsis / Septicemia Please specify organism if known [] [] SIRS (Systemic Inflammatory Response Syndrome) [] Severe Sepsis (Sepsis with Associated Organ Dysfunction) [] Fever of Unknown Origin [] Other, please indicate: [] [x] If Unable to Determine, please check the box, sign and date. Present On Admission (POA) Indicator: [x] Present at the time of admission [] Not present at the time of admission [] Clinically Undetermined In responding to this query, please exercise your independent professional judgment. The fact that a question is asked does not imply that any particular answer is desired or expected. Thank you for your clarification on this documentation. If you have any questions please call:[ ] * Thank you, [ ]FLOWER LAINEZdining room maid DIAMANTE
== END 2016-07-06 16:15 | DRG 871 ==
LOC: ED 15:26 → ERH 17:49 → 2RSO 22:31 → 3RSO 07-04 16:46
PROVIDERS: ADMIT Internal Medicine; ATTEND Internal Medicine
DX: A41.9 Sepsis, unspecified organism (principal); J44.1 Chronic obstructive pulmonary disease with (acute) exacerbation; J44.0 Chronic obstructive pulmonary disease with (acute) lower respiratory infection; J18.9 Pneumonia, unspecified organism; E11.65 Type 2 diabetes mellitus with hyperglycemia; J84.10 Pulmonary fibrosis, unspecified; E87.5 Hyperkalemia; D50.9 Iron deficiency anemia, unspecified; N76.0 Acute vaginitis; J47.9 Bronchiectasis, uncomplicated; I25.10 Atherosclerotic heart disease of native coronary artery without angina pectoris; I10 Essential (primary) hypertension; R26.2 Difficulty in walking, not elsewhere classified; K43.9 Ventral hernia without obstruction or gangrene; Y95 Nosocomial condition; E78.5 Hyperlipidemia, unspecified; Z95.5 Presence of coronary angioplasty implant and graft; Z99.81 Dependence on supplemental oxygen; Z88.0 Allergy status to penicillin; Z79.4 Long term (current) use of insulin; Z87.891 Personal history of nicotine dependence; Z87.01 Personal history of pneumonia (recurrent)

== ENCOUNTER 2016-07-06 16:15 | Inpatient (IN) | payer OTHER, MEDICAID ==
[2016-07-06 16:37] VITALS: BMI 24.7
[2016-07-06] MEDS ORDERED: Oxycodone/Acetaminophen 5/325 mg Tab PO PRN (16:46)
[2016-07-06] MEDS: Insulin Reg-HIGH-Coverage SC SCH ×2 (17:43→21:45)
[2016-07-06] MEDS ORDERED: Pneumococcal 23-Valent Vaccine IM ONE (18:22)
[2016-07-06] MEDS: Albuterol-Ipratrop 3 mg / 0.5 (3 ml) UD IH SCH (20:45)
[2016-07-06] MEDS: Aztreonam 1 Gm in NS 100mL 100 ML IVPB SCH (21:45)
[2016-07-06] MEDS: Insulin Detemir 100 units/ml Vial (Levemir) SC SCH (21:46)
[2016-07-06] MEDS: MethylPREDNISolone 40 mg Vial IVP SCH (21:47)
[2016-07-06] MEDS: Latanoprost 2.5 ml Opht Soln OU SCH (21:49)
[2016-07-06] MEDS ORDERED: Insulin Reg-HIGH-Coverage SC SCH (22:00)
[2016-07-07] MEDS: Albuterol-Ipratrop 3 mg / 0.5 (3 ml) UD IH SCH ×4 (02:20→20:26)
[2016-07-07] MEDS: Aztreonam 1 Gm in NS 100mL 100 ML IVPB SCH ×3 (05:56→21:22)
[2016-07-07] MEDS: Insulin Lispro (humaLOG) MIX 75/25(10 ml) SC SCH ×2 (06:55→18:33)
[2016-07-07] MEDS: Insulin Reg-HIGH-Coverage SC SCH ×4 (06:57→23:05)
[2016-07-07] MEDS: MethylPREDNISolone 40 mg Vial IVP SCH (08:27)
[2016-07-07] MEDS ORDERED: Potassium Chloride 20 mEq ER Tab PO SCH (10:00)
[2016-07-07] MEDS ORDERED: Metoprolol Succinate 50 mg XL Tab PO SCH (10:00)
--- NOTE | 2016-07-07 15:33 | CP.PCM.PN ---
Subjective - Date & Time of Evaluation Date of Evaluation: 07/07/16 Time of Evaluation: 15:28 - Subjective Subjective: Patient has very poor veins,needs iv access Objective - Vital Signs/Intake and Output Vital Signs (last 24 hours): Temp Pulse Resp BP Pulse Ox 97.5 F L 89 20 104/57 L 97 07/07/16 10:00 07/07/16 10:00 07/07/16 10:00 07/07/16 10:00 07/07/16 10:00 Intake and Output: 07/07/16 07/07/16 06:59 18:59 Intake Total 840 Balance 840 - Medications Medications: Current Medications Albuterol/Ipratropium (Duoneb 3 Mg/0.5 Mg (3 Ml) Ud) 3 ml IH [id number] [facility] PRN Reason: Protocol Last Admin: 07/07/16 13:08 Dose: 3 ml Aspirin (Ecotrin) 81 mg PO 0800 [facility] PRN Reason: Protocol Last Admin: 07/07/16 08:24 Dose: 81 mg Atorvastatin Calcium (Lipitor) 20 mg PO DIN [facility] PRN Reason: Protocol Last Admin: 07/06/16 18:32 Dose: 20 mg Clopidogrel Bisulfate (Plavix) 75 mg PO DAILY [facility] PRN Reason: Protocol Last Admin: 07/07/16 09:22 Dose: 75 mg Fenofibrate (Tricor) 145 mg PO DAILY [facility] PRN Reason: Protocol Last Admin: 07/07/16 09:23 Dose: 145 mg Furosemide (Lasix) 20 mg PO DAILY [facility] Aztreonam (Azactam 1 Gm) 100 mls @ 100 mls/hr IVPB Q8 [facility] PRN Reason: Protocol Last Admin: 07/07/16 13:47 Dose: 100 mls/hr Doxycycline Hyclate 100 mg/ (Sodium Chloride) 100 mls @ 100 mls/hr IVPB 0600, 1800 [facility] PRN Reason: Protocol Insulin Detemir (Levemir) 25 unit SC HS [facility] PRN Reason: Protocol Last Admin: 07/06/16 21:46 Dose: 25 unit Insulin Human Regular (Humulin R High) 0 units SC ACHS [facility] PRN Reason: Protocol Last Admin: 07/07/16 12:17 Dose: 4 units Insulin Lispro Protam/Lispro Human (Humalog Mix 75/25) 15 units SC ACBD [facility] PRN Reason: Protocol Last Admin: 07/07/16 06:55 Dose: 15 units Isosorbide Mononitrate (Imdur) 60 mg PO 0630 [facility] PRN Reason: Protocol Latanoprost (Xalatan Opht) 0 ml OU HS [facility] PRN Reason: Protocol Last Admin: 07/06/16 21:49 Dose: 2.5 ml Lisinopril (Zestril) 30 mg PO DAILY [facility] PRN Reason: Protocol Last Admin: 07/07/16 09:23 Dose: 30 mg Metoprolol Succinate (Toprol Xl) 50 mg PO 0800 [facility] PRN Reason: Protocol Oxycodone/Acetaminophen (Percocet 5/325 Mg Tab) 1 tab PO Q6H PRN; Protocol PRN Reason: Pain, moderate (4-7) Pantoprazole Sodium (Protonix Inj) 40 mg IVP 0600 [facility] PRN Reason: Protocol Potassium Chloride (Klor-Con 10) 10 meq PO 0800 [facility] Prednisone (Prednisone Tab) 20 mg PO DAILY [facility] Primidone (Mysoline) 50 mg PO HS [facility] PRN Reason: Protocol Last Admin: 07/06/16 21:46 Dose: 50 mg Ropinirole HCl (Requip) 2 mg PO HS [facility] PRN Reason: Protocol - Constitutional Appears: No Acute Distress Assessment and Plan - Assessment and Plan (Free Text) Assessment: Poor venous access Plan: Hep lock inserted in the R hand. # 24 angiocath used.
[2016-07-07] MEDS ORDERED: MethylPREDNISolone 40 mg Vial IVP SCH (18:00)
--- NOTE | 2016-07-07 21:01 | HP ---
HISTORY OF PRESENT ILLNESS: The patient is 71 years old, who was initially admitted with cough, stevan estion, wheezing, not feeling well, having productive cough with yellow phlegm. She was treated with IV steroids and antibiotics. She spiked a fever the very first day and then the following day she w as found to have leukocytosis of 20. The patient has been having difficulty with exertional dyspnea, so he transferred to TCU for rehabilitation and completion of course of antibiotic. PAST MEDICAL HISTORY: She has significant past medical history of 1. Hypertension. 2. Noninsulin dependent diabetes. 3. Coronary artery disease, on conservative treatment. 4. Chronic obstructive pulmonary disease. 5. Generalized osteoarthritis. ALLERGIES: SHE IS ALLERGIC TO FISH, IODINE, , AND PENICILLIN. SOCIAL HISTORY: She is a heavy smoker and quit 2-3 years ago. MEDICATIONS AT HOME: She is on Requip 2 mg at bedtime, Mysoline 50 mg at bedtime, Singulair 10 mg at bedtime, Xalatan eyedrops, Levemir 24 units at bedtime, Spiriva. She is on Protonix, metoprolol, Ze stril 30 mg daily, isosorbide 60 mg daily, Lasix 20 mg daily, Tricor 145 daily, Plavix 75 daily and a spirin 81 daily. REVIEW OF SYSTEMS: She is , lives with her , was a heavy smoker in the past, quit 6 ye ars ago. PHYSICAL EXAMINATION: GENERAL: She is awake and alert, communicative. VITAL SIGNS: She is afebrile, pulse 84, respirations 20, blood pressure 115/56. LUNGS: Bilateral fair airflow, no rhonchi or crackle. HEART: S1, S2 audible. ABDOMEN: Soft, nontender, no rebound, no guarding. NEUROLOGIC: The patient is awake and alert, ambulatory. LABORATORY EXAM: Blood sugar is 231. ASSESSMENT: 1. Chronic obstructive pulmonary disease exacerbation. 2. Status post leukocytosis. 3. Asthmatic bronchitis. 4. Hypertension. 5. Insulin-dependent diabetes. 6. Coronary artery disease. PLAN: Currently, the patient is on Azactam and getting nebulizer treatment. She is on doxycycline. She is on aspirin. We will monitor her blood sugar. Continue isosorbide. She is on small dose of p.o. Lasix, continue on statin, analgesic as needed. Encourage physical therapy. We will follow up patient in a.m. Ten Sher MD cc: [phone] TT: 07/07/2016 21:00:52 ln
[2016-07-07] MEDS: Latanoprost 2.5 ml Opht Soln OU SCH (21:23)
[2016-07-07] MEDS: Insulin Detemir 100 units/ml Vial (Levemir) SC SCH (23:05)
[2016-07-08] MEDS: Albuterol-Ipratrop 3 mg / 0.5 (3 ml) UD IH SCH ×4 (03:15→20:02)
[2016-07-08] MEDS: Aztreonam 1 Gm in NS 100mL 100 ML IVPB SCH ×3 (05:29→22:01)
[2016-07-08] MEDS: Insulin Lispro (humaLOG) MIX 75/25(10 ml) SC SCH ×2 (06:50→16:55)
[2016-07-08] MEDS: Insulin Reg-HIGH-Coverage SC SCH ×4 (06:51→22:21)
[2016-07-08] MEDS ORDERED: Potassium Chloride 20 mEq ER Tab PO SCH (08:00)
[2016-07-08] MEDS: Potassium Chloride 10 mEq ER Tab PO SCH (08:23)
[2016-07-08] MEDS: Metoprolol Succinate 50 mg XL Tab PO SCH (08:24)
--- NOTE | 2016-07-08 09:22 | CP.PCM.PN ---
Subjective - Date & Time of Evaluation Date of Evaluation: 07/08/16 Time of Evaluation: 07:50 - Subjective Subjective: Pt has very poor veins,needs iv access. Objective - Vital Signs/Intake and Output Vital Signs (last 24 hours): Temp Pulse Resp BP Pulse Ox 98.1 F 76 20 140/60 100 07/07/16 16:00 07/08/16 08:24 07/07/16 16:00 07/08/16 08:24 07/07/16 16:00 - Medications Medications: Current Medications Albuterol/Ipratropium (Duoneb 3 Mg/0.5 Mg (3 Ml) Ud) 3 ml IH [id number] [facility]ANNA PRN Reason: Protocol Last Admin: 07/08/16 07:35 Dose: 3 ml Aspirin (Ecotrin) 81 mg PO 0800 [facility]NA PRN Reason: Protocol Last Admin: 07/08/16 08:23 Dose: 81 mg Atorvastatin Calcium (Lipitor) 20 mg PO DIN B[facility]ANNA PRN Reason: Protocol Last Admin: 07/07/16 18:37 Dose: 20 mg Clopidogrel Bisulfate (Plavix) 75 mg PO DAILY [facility]ANNA PRN Reason: Protocol Last Admin: 07/07/16 09:22 Dose: 75 mg Fenofibrate (Tricor) 145 mg PO DAILY [facility]NA PRN Reason: Protocol Last Admin: 07/07/16 09:23 Dose: 145 mg Furosemide (Lasix) 20 mg PO DAILY B[facility]ANNA Aztreonam (Azactam 1 Gm) 100 mls @ 100 mls/hr IVPB Q8 [facility]NA PRN Reason: Protocol Last Admin: 07/08/16 05:29 Dose: 100 mls/hr Doxycycline Hyclate 100 mg/ (Sodium Chloride) 100 mls @ 100 mls/hr IVPB 0600, 1800 [facility]NA PRN Reason: Protocol Last Admin: 07/07/16 18:38 Dose: 100 mls/hr Pantoprazole Sodium (Protonix 40mg Ivpb) 100 mls @ 200 mls/hr IVPB 0600 BRIANNA Insulin Detemir (Levemir) 25 unit SC HS [facility]ANNA PRN Reason: Protocol Last Admin: 07/07/16 23:05 Dose: 25 unit Insulin Human Regular (Humulin R High) 0 units SC ACHS B[facility]ANNA PRN Reason: Protocol Last Admin: 07/08/16 06:51 Dose: Not Given Insulin Lispro Protam/Lispro Human (Humalog Mix 75/25) 15 units SC ACBD B[facility]ANNA PRN Reason: Protocol Last Admin: 07/08/16 06:50 Dose: Not Given Isosorbide Mononitrate (Imdur) 60 mg PO 0630 [facility]ANNA PRN Reason: Protocol Last Admin: 07/08/16 05:30 Dose: 60 mg Latanoprost (Xalatan Opht) 0 ml OU HS [facility]ANNA PRN Reason: Protocol Last Admin: 07/07/16 21:23 Dose: 2.5 ml Lisinopril (Zestril) 30 mg PO DAILY B[facility]ANNA PRN Reason: Protocol Last Admin: 07/07/16 09:23 Dose: 30 mg Metoprolol Succinate (Toprol Xl) 50 mg PO 0800 [facility] PRN Reason: Protocol Last Admin: 07/08/16 08:24 Dose: 50 mg Oxycodone/Acetaminophen (Percocet 5/325 Mg Tab) 1 tab PO Q6H PRN; Protocol PRN Reason: Pain, moderate (4-7) Potassium Chloride (Klor-Con 10) 10 meq PO 0800 [facility] Last Admin: 07/08/16 08:23 Dose: 10 meq Prednisone (Prednisone Tab) 20 mg PO DAILY BRIANNA Primidone (Mysoline) 50 mg PO HS B[facility]ANNA PRN Reason: Protocol Last Admin: 07/07/16 21:23 Dose: 50 mg Ropinirole HCl (Requip) 2 mg PO HS B[facility]ANNA PRN Reason: Protocol Last Admin: 07/07/16 21:23 Dose: 2 mg - Constitutional Appears: No Acute Distress Assessment and Plan - Assessment and Plan (Free Text) Assessment: Poor venous access Plan: Hep lock inserted in the L forearm. # 24 angiocath used.
--- NOTE | 2016-07-08 11:55 | PN ---
DATE: 07/08/2016 SUBJECTIVE: The patient is a 71-year-old, seen and examined, ambulatory, mild shortness of breath, n o nausea, vomiting, no diarrhea. Eating and tolerating. PHYSICAL EXAMINATION: VITAL SIGNS: She is afebrile, pulse 76, respirations 20, blood pressure 111/66. LUNGS: Bilateral fair airflow, no rhonchi or crackle. HEART: S1, S2 audible. No murmur. ABDOMEN: Soft, nontender, no rebound, no guarding. NEUROLOGIC: She is awake and alert, communicative. LABORATORY EXAMINATION: Her blood sugar is 338. ASSESSMENT AND PLAN: 1. Chronic obstructive pulmonary disease exacerbation. 2. Leukocytosis that is resolved. 3. Bronchiectasis. 4. Pulmonary fibrosis. 5. Coronary artery disease. 6. Hypertension. PLAN: Continue current medication, antibiotic as per ID and discharge plan once antibiotic course is finished. Ten Sher MD cc: [phone] TT: 07/08/2016 11:53:54 Confirmation # [id number] Dictation # [id number] tn
[2016-07-08] MEDS: Insulin Detemir 100 units/ml Vial (Levemir) SC SCH (22:00)
[2016-07-08] MEDS: Latanoprost 2.5 ml Opht Soln OU SCH (22:02)
[2016-07-09] MEDS: Albuterol-Ipratrop 3 mg / 0.5 (3 ml) UD IH SCH ×5 (02:23→20:06)
[2016-07-09] MEDS: Pantoprazole 40mg/100ml IVPB 100 ML IVPB SCH (05:01)
[2016-07-09] MEDS: Aztreonam 1 Gm in NS 100mL 100 ML IVPB SCH ×3 (05:02→22:03)
[2016-07-09] MEDS: Insulin Reg-HIGH-Coverage SC SCH ×4 (06:48→22:03)
[2016-07-09] MEDS: Insulin Lispro (humaLOG) MIX 75/25(10 ml) SC SCH ×2 (06:50→17:16)
[2016-07-09] MEDS: Potassium Chloride 10 mEq ER Tab PO SCH (08:29)
[2016-07-09] MEDS: Metoprolol Succinate 50 mg XL Tab PO SCH (08:29)
--- NOTE | 2016-07-09 16:28 | CP.PCM.PN ---
Subjective - Date & Time of Evaluation Date of Evaluation: 07/09/16 Time of Evaluation: 16:22 - Subjective Subjective: Patient has very poor veins,needs iv access Objective - Vital Signs/Intake and Output Vital Signs (last 24 hours): Temp Pulse Resp BP Pulse Ox 97.7 F 79 20 116/57 L 93 L 07/09/16 10:00 07/09/16 10:42 07/09/16 10:00 07/09/16 10:42 07/09/16 10:00 - Medications Medications: Current Medications Albuterol/Ipratropium (Duoneb 3 Mg/0.5 Mg (3 Ml) Ud) 3 ml IH [id number] B[facility]ANNA PRN Reason: Protocol Last Admin: 07/09/16 13:19 Dose: 3 ml Aspirin (Ecotrin) 81 mg PO 0800 [facility]NA PRN Reason: Protocol Last Admin: 07/09/16 08:28 Dose: 81 mg Atorvastatin Calcium (Lipitor) 20 mg PO DIN [facility]NA PRN Reason: Protocol Last Admin: 07/08/16 17:35 Dose: 20 mg Clopidogrel Bisulfate (Plavix) 75 mg PO DAILY [facility]NA PRN Reason: Protocol Last Admin: 07/09/16 10:41 Dose: 75 mg Fenofibrate (Tricor) 145 mg PO DAILY [facility]NA PRN Reason: Protocol Last Admin: 07/09/16 10:42 Dose: 145 mg Furosemide (Lasix) 20 mg PO DAILY [facility] Last Admin: 07/09/16 10:40 Dose: 20 mg Aztreonam (Azactam 1 Gm) 100 mls @ 100 mls/hr IVPB Q8 [facility]ANNA PRN Reason: Protocol Last Admin: 07/09/16 13:22 Dose: 100 mls/hr Doxycycline Hyclate 100 mg/ (Sodium Chloride) 100 mls @ 100 mls/hr IVPB 0600, 1800 [facility]NA PRN Reason: Protocol Last Admin: 07/09/16 05:02 Dose: 100 mls/hr Pantoprazole Sodium (Protonix 40mg Ivpb) 100 mls @ 200 mls/hr IVPB 0600 [facility]ANNA Last Admin: 07/09/16 05:01 Dose: 200 mls/hr Insulin Detemir (Levemir) 30 unit SC HS [facility]ANNA PRN Reason: Protocol Last Admin: 07/08/16 22:00 Dose: 30 unit Insulin Human Regular (Humulin R High) 0 units SC ACHS [facility]NA PRN Reason: Protocol Last Admin: 07/09/16 11:41 Dose: 2 units Insulin Lispro Protam/Lispro Human (Humalog Mix 75/25) 25 units SC ACBD [facility]ANNA PRN Reason: Protocol Last Admin: 07/09/16 06:50 Dose: 25 u Isosorbide Mononitrate (Imdur) 60 mg PO 0630 [facility] PRN Reason: Protocol Last Admin: 07/09/16 06:48 Dose: 60 mg Latanoprost (Xalatan Opht) 0 ml OU HS [facility]ANNA PRN Reason: Protocol Last Admin: 07/08/16 22:02 Dose: 2.5 ml Lisinopril (Zestril) 30 mg PO DAILY [facility] PRN Reason: Protocol Last Admin: 07/09/16 10:42 Dose: 30 mg Metoprolol Succinate (Toprol Xl) 50 mg PO 0800 [facility] PRN Reason: Protocol Last Admin: 07/09/16 08:29 Dose: 50 mg Oxycodone/Acetaminophen (Percocet 5/325 Mg Tab) 1 tab PO Q6H PRN; Protocol PRN Reason: Pain, moderate (4-7) Last Admin: 07/09/16 03:09 Dose: 1 tab Potassium Chloride (Klor-Con 10) 10 meq PO 0800 [facility] Last Admin: 07/09/16 08:29 Dose: 10 meq Prednisone (Prednisone Tab) 20 mg PO DAILY [facility] Last Admin: 07/09/16 10:41 Dose: 20 mg Primidone (Mysoline) 50 mg PO HS [facility] PRN Reason: Protocol Last Admin: 07/08/16 22:02 Dose: 50 mg Ropinirole HCl (Requip) 2 mg PO HS [facility] PRN Reason: Protocol Last Admin: 07/08/16 22:02 Dose: 2 mg - Constitutional Appears: No Acute Distress Assessment and Plan - Assessment and Plan (Free Text) Assessment: Poor venous access. Plan: Heplock inserted in left hand. # 24 angiocath used
[2016-07-09] MEDS: Insulin Detemir 100 units/ml Vial (Levemir) SC SCH (22:04)
[2016-07-09] MEDS: Latanoprost 2.5 ml Opht Soln OU SCH (22:05)
[2016-07-10] MEDS: Albuterol-Ipratrop 3 mg / 0.5 (3 ml) UD IH SCH ×4 (01:40→20:21)
[2016-07-10] MEDS: Pantoprazole 40mg/100ml IVPB 100 ML IVPB SCH (05:07)
[2016-07-10] MEDS: Aztreonam 1 Gm in NS 100mL 100 ML IVPB SCH ×4 (05:08→23:43)
[2016-07-10] MEDS: Insulin Reg-HIGH-Coverage SC SCH ×4 (08:11→22:17)
[2016-07-10] MEDS: Insulin Lispro (humaLOG) MIX 75/25(10 ml) SC SCH ×3 (08:11→17:10)
[2016-07-10] MEDS: Potassium Chloride 10 mEq ER Tab PO SCH (08:48)
[2016-07-10] MEDS: Metoprolol Succinate 50 mg XL Tab PO SCH (08:49)
--- NOTE | 2016-07-10 19:19 | PN ---
DATE: 07/10/2016 SUBJECTIVE: The patient is a 71-year old seen and examined, sitting in chair, comfortable, still has scanty cough and congestion, but much better than before. PHYSICAL EXAMINATION: VITAL SIGNS: She is afebrile, pulse 89, respirations 20, blood pressure 129/56. LUNGS: Bilateral fair airflow, no rhonchi or crackle, except still upper and mid lung region she has occasional rhonchi. HEART: S1, S2 audible. ABDOMEN: Soft, nontender, no rebound, no guarding. NEUROLOGIC: She is awake and alert, communicative. LABORATORY: Blood sugar is 203. ASSESSMENT AND PLAN: 1. Chronic obstructive pulmonary disease exacerbation. 2. Bronchospasm. 3. Hypertension. 4. Coronary artery disease. 5. Non-insulin dependent diabetes. PLAN: We will continue patient on current medication. We will discontinue doxycycline to p.o. and s he will finish her course of Azactam by tomorrow. Continue all other medication and if patient remai ns stable, discharge planned for the morning. Ten Sher MD cc: [phone] TT: 07/10/2016 19:18:25 Confirmation # [id number] Dictation # [id number]
[2016-07-10] MEDS: Latanoprost 2.5 ml Opht Soln OU SCH (22:14)
[2016-07-10] MEDS: Insulin Detemir 100 units/ml Vial (Levemir) SC SCH (22:16)
[2016-07-11] MEDS: Albuterol-Ipratrop 3 mg / 0.5 (3 ml) UD IH SCH ×3 (01:27→13:07)
[2016-07-11] MEDS: Pantoprazole 40mg/100ml IVPB 100 ML IVPB SCH (06:07)
[2016-07-11] MEDS: Aztreonam 1 Gm in NS 100mL 100 ML IVPB SCH (06:07)
[2016-07-11 06:37] VITALS: PULSE 69; RESP 18; TEMP 97.7; O2SAT 96
[2016-07-11] MEDS: Insulin Reg-HIGH-Coverage SC SCH ×2 (06:55→12:33)
[2016-07-11] MEDS: Insulin Lispro (humaLOG) MIX 75/25(10 ml) SC SCH (08:33)
[2016-07-11] MEDS: Potassium Chloride 10 mEq ER Tab PO SCH (08:34)
[2016-07-11] MEDS: Metoprolol Succinate 50 mg XL Tab PO SCH (08:35)
[2016-07-11 10:47] VITALS: BP 140/70
--- NOTE | 2016-07-11 19:45 | DS ---
The patient is a 71-year-old, seen and examined. The patient was admitted with cough, congestion. S he had fever of 103. Also, has a white count of 20,000 and started on IV antibiotics. She has a his tory of bronchiectasis, COPD, coronary artery disease and pulmonary fibrosis. She has longstanding h istory of smoking. She quit 2 years ago. PHYSICAL EXAMINATION: GENERAL: Today, she is awake and alert, communicative. VITAL SIGNS: She is afebrile, pulse 69, respirations 18, blood pressure 140/70. LUNGS: Bilateral fair airflow, no rhonchi or crackle except a few crackles and rhonchi posteri lucita. HEART: S1, S2 audible. ABDOMEN: Soft, nontender, no rebound, no guarding. NEUROLOGIC: She is awake and alert, communicative. LABORATORY EXAM: Blood sugar is 89. ASSESSMENT AND PLAN: 1. Chronic obstructive pulmonary disease exacerbation. 2. Bronchiectasis. 3. Pulmonary fibrosis. 4. Coronary artery disease. 5. Deconditioning and difficulty walking, seems to be improving. PLAN: The patient is being discharged home. She is given a prescription of prednisone 10 mg daily f or 5 more days. She is given doxycycline 100 mg twice a day for 2 more days and she will continue al l her medication as prior to admission that includes Requip 2 mg at bedtime, 50 mg at bedtime, Singulair 10 mg at bedtime, Levemir 25 units at bedtime, Spiriva 18 mcg daily, lisinopril 30 mg daily , isosorbide 60 mg daily, Lasix 40 mg daily, Tricor 145 daily, Plavix 75 daily, atorvastatin 20 mg da lance, aspirin 81 daily. She will follow with Dr. Batista in a week. Ten Sher MD cc: [phone] TT: 07/11/2016 19:44:12 va
--- NOTE | 2016-09-10 22:43 | PN ---
DATE: 07/09/2016 SUBJECTIVE: She is currently comfortable. Denies any complaints. Sitting on the chair. She is par ticipating in physical therapy complaining of cough. No chest pain, no shortness of breath. REVIEW OF SYSTEMS: As per HPI. Rest of 12-point review of systems reviewed and negative. PHYSICAL EXAMINATION: GENERAL: Comfortable in bed, in no acute distress. VITAL SIGNS: Afebrile, temperature 98.7, heart rate 85 per minute, respiratory rate 15 per minute, b lood pressure 130/80. HEENT: Normal. CHEST: Air entry present, equal bilateral. Occasional rhonchi. CARDIOVASCULAR: S1, S2 normal. No murmur, no gallop. ABDOMEN: Soft, nontender, no hepatosplenomegaly. EXTREMITIES: No edema. NEUROLOGIC: Awake, alert, oriented x 3. No sensory motor deficit. Gait: Walks with support. LABORATORY DATA: Reviewed. MEDICATIONS: Reviewed. ASSESSMENT: 1. Anemia. 2. Leukocytosis. 3. Chronic obstructive pulmonary disease exacerbation. 4. Hypertension. 5. Diabetes mellitus type 2. 6. Deconditioning. PLAN: She is currently comfortable. She is currently on doxycycline, will continue that. White cou nt is declining. Hemoglobin and hematocrit are stable. All medication will be continued on discharg e planning. Discussed with the staff nurse. Discussed with the patient. Jazz Klein MD cc: [id number] TT: 09/10/2016 22:42:03 Confirmation # [id number] Dictation # [id number] desire
== END 2016-07-11 15:06 | disposition home or self-care (01) | DRG 192 ==
LOC: TRCU 16:15
PROVIDERS: ADMIT Internal Medicine; ATTEND Internal Medicine
PROC: 3E0F7GC Introduction of Other Therapeutic Substance into Respiratory Tract, Via Natural or Artificial Opening (ICD-10-PCS; 2016-07-06)
PROC: F07Z9FZ Gait Training/Functional Ambulation Treatment using Assistive, Adaptive, Supportive or Protective Equipment (ICD-10-PCS; principal; 2016-07-07)
PROC: F08Z4FZ Home Management Treatment using Assistive, Adaptive, Supportive or Protective Equipment (ICD-10-PCS; 2016-07-07)
DX: J44.1 Chronic obstructive pulmonary disease with (acute) exacerbation (principal); Z79.2 Long term (current) use of antibiotics; J84.10 Pulmonary fibrosis, unspecified; E11.9 Type 2 diabetes mellitus without complications; I10 Essential (primary) hypertension; I25.10 Atherosclerotic heart disease of native coronary artery without angina pectoris; D72.829 Elevated white blood cell count, unspecified; R26.2 Difficulty in walking, not elsewhere classified; J45.909 Unspecified asthma, uncomplicated; M15.9 Polyosteoarthritis, unspecified; Z79.4 Long term (current) use of insulin; Z87.891 Personal history of nicotine dependence; Z79.02 Long term (current) use of antithrombotics/antiplatelets; Z79.82 Long term (current) use of aspirin

== ENCOUNTER 2016-08-22 10:21 | Inpatient (IN) | payer MEDICARE, MEDICAID ==
--- NOTE | 2016-08-22 10:51 | ED PDOC ---
Arrival/HPI - General Chief Complaint: Shortness Of Breath Time Seen by Provider: 08/22/16 10:39 Historian: Patient - History of Present Illness Narrative History of Present Illness (Text): 08/22/16 10:44 A 71 year old female, whose past medical history includes COPD, CAD with 9 stents on Plavix and Aspirin, presents to the emergency department complaining of progressively worsening shortness of breath for the past 3 days. Patient notes chest tightness and heaviness. Patient states her symptoms are exacerbated when ambulating or laying down. She reports her current symptoms feel worse than prior COPD exacerbation. Patient denies any pleuritic chest pain , edema, fever, chills, nausea, vomiting, diarrhea, abdominal pain or any other complaints. Patient notes she was on prednisone a few months. She reports she did not take her medication this morning. She denies hemoptysis. Reports productive sputum. Denies calf pain or swelling. PMD: Dr. Sherman 08/22/16 16:42 Time/Duration: Other (3 days) Symptom Course: Worsening Quality: Other Context: Other Past Medical History - Provider Review Nursing Documentation Reviewed: Yes - Infectious Disease Hx of Infectious Diseases: None - Tetanus Immunization Tetanus Immunization: Unknown - Reproductive Menopause: Yes - Cardiac Hx Hypertension: Yes - Pulmonary Hx Chronic Obstructive Pulmonary Disease (COPD): Yes - Neurological HX Cerebrovascular Accident: No - HEENT Hx HEENT Disorder: Yes Hx Cataracts: Yes - Renal Hx Renal Failure: Yes - Endocrine/Metabolic Hx Diabetes Mellitus Type 2: Yes - Hematological/Oncological Hx Hepatitis B: Yes - Integumentary Hx Dermatological Disorder: Yes - Musculoskeletal/Rheumatological Hx Arthritis: Yes - Gastrointestinal Hx Gastrointestinal Disorders: Yes (umbilical hernia) - Genitourinary/Gynecological Hx Reproductive Disorders: Yes (partial hyst) - Psychiatric Hx Emotional Abuse: No Hx Physical Abuse: No Hx Substance Use: No - Surgical History Hx Coronary Stent: Yes - Anesthesia Hx Anesthesia Reactions: No Hx Malignant Hyperthermia: No - Suicidal Assessment Feels Threatened In Home Enviroment: No Family/Social History - Physician Review Nursing Documentation Reviewed: Yes Family/Social History: No Known Family HX Smoking Status: Former Smoker Hx Alcohol Use: No Hx Substance Use: No Hx Substance Use Treatment: No Allergies/Home Meds Allergies/Adverse Reactions: Allergies FISH Allergy (Severe, Verified 07/06/16 16:46) THROAT SWELLING iodine Allergy (Verified 07/06/16 16:46) RASH oxaprozin [From Daypro] Allergy (Verified 07/06/16 16:46) RASH Penicillins Allergy (Verified 07/06/16 16:46) ANAPHYLAXIS Home Medications: Home Meds Medication Instructions Recorded Confirmed Albuterol HFA [Ventolin HFA 90 1 puff IH QID 05/29/16 08/22/16 mcg/actuation (8 g)] Furosemide [Lasix] 1 tab PO DAILY 05/29/16 08/22/16 Insulin Detemir [Levemir] 25 unit SC HS 05/29/16 08/22/16 Metoprolol Succinate XL [Toprol XL] 50 mg PO DAILY 05/29/16 08/22/16 Primidone [Mysoline] 50 mg PO HS 07/02/16 08/22/16 Albuterol Sulfate [Proair Hfa] 0.09 mg IH DAILY 08/22/16 08/22/16 Albuterol/Ipratropium [Combivent 1 puff IH DAILY 08/22/16 08/22/16 Respimat] Review of Systems - Review of Systems Constitutional: Fatigue. absent: Fevers, Night Sweats Eyes: absent: Vision Changes ENT: absent: Hearing Changes Respiratory: SOB, Sputum, Wheezing Cardiovascular: Chest Pain (Chest tightness), ATKINSON. absent: Edema, Calf Pain, Other (Pleuritic chest pain) Gastrointestinal: absent: Abdominal Pain, Diarrhea, Nausea, Vomiting Genitourinary Female: absent: Dysuria Musculoskeletal: absent: Back Pain Skin: absent: Rash Neurological: absent: Headache, Dizziness, Focal Weakness Endocrine: absent: Polydipsia Hemo/Lymphatic: absent: Easy Bleeding Physical Exam - Physical Exam Narrative Physical Exam (Text): Head: Atraumatic. Normocephalic. Eyes: PERRL. EOMI. Conjunctivae are not pale. ENT: Mucous membranes are moist and intact. Oropharynx is clear and symmetric. Neck: Supple. Full ROM. No JVD. No lymphadenopathy. Cardiovascular: Regular rate. Regular rhythm. No murmurs, rubs, or gallops. Distal pulses are 2+ and symmetric. Pulmonary/Chest: Mild tachypnea, no accessory muscle usage. Bilateral expiratory wheezing with crackles. Abdominal: Soft and non-distended. There is no tenderness. No rebound, guarding, or rigidity. No organomegaly. Good bowel sounds. Back: No CVA tenderness. No midline back pain, no cva tenderness. Extremities: No edema. No cyanosis. No clubbing. Full range of motion in all extremities. No calf tenderness. Skin: Skin is warm and dry. No petechiae. No purpura. Neurological: Alert, awake, and oriented to person, place, time, and situation. Normal speech. Motor and sensory exam intact. Psychiatric: Good eye contact. Normal interaction, affect, and behavior. 08/22/16 16:43 Vital Signs Reviewed: Yes Vital Signs Temp Pulse Resp BP Pulse Ox 08/22/16 14:58 92 H 22 152/75 H 94 L 08/22/16 12:30 128/75 08/22/16 12:22 88 22 161/83 H 94 L 08/22/16 10:51 20 08/22/16 10:22 98.4 F 93 H 20 136/76 93 L Temperature: Afebrile Blood Pressure: Normal Pulse: Tachycardic Respiratory Rate: Tachypneic Appearance: Positive for: Non-Toxic, Comfortable Pain Distress: Mild Mental Status: Positive for: Alert and Oriented X 3 Medical Decision Making ED Course and Treatment: 08/22/16 10:44 Impression: A 71 year old female with worsening shortness of breath and chest tightness. Plan includes emergent cardiac consult as EKG changes noted from previous. Differential Diagnosis included but are not limited to: Acute PA vs. COPD vs. Unstable angina vs. Pneumonia. Plan: -- Chest xray -- EKG -- Labs -- Reassess and disposition Progress Notes: Patient with prior admissions fo COPD but also significant past cardiac history. She reports sob for three days with "lung pain" which she describes as chest tightness with cough. Wheezing is noted although EKG abnormal with ischemic appearing changes when compared to prior. 08/22/16 11:35 Based on ischemic changes on EKG emergent cardiac consult with Dr. Henry obtained. Recent cardiac catheterization reviewed. Although, T-wave inversions are new compared to most recent EKG patient will be admitted to telemetry for further cardiac workup. Aspirin and Plavix administered. Further consultation with cardiac regarding anticoagulation. Will initiate Lovenox. Case discussed with Dr. Sher, who accepts patient to her service. 08/22/16 12:03 Patient evaluated at bedside by Dr. Henry. Placed an order for Lovenox. Report Date : 08/22/2016 12:15:25 Procedure: Chest xray Dictator : Yogi Whitten MD IMPRESSION: Chronic interstitial infiltrate right greater than left Chest xray reading noted. Will initiate iv antibiotics, treatment plan discussed and reviewed with patient and family. On re-exam, wheezing improved, saturations 96%. Lasix ordered. Suspect component of COPD, CHF, cardiac iscehmia. - Critical Care Critical Care Minutes: 30 minutes - Lab Interpretations Lab Results: 08/22/16 10:50 08/22/16 10:50 Lab Results 08/22/16 10:50: Sodium 137, Potassium 4.5, Chloride 94 L, Carbon Dioxide 39 H, Anion Gap 9 L, BUN 14, Creatinine 0.7, Est GFR ( Amer) > 60, Est GFR (Non -Af Amer) > 60, Random Glucose 148 H, Calcium 9.3, Total Bilirubin 0.3, AST 34, ALT 34, Alkaline Phosphatase 73, Lactate Dehydrogenase 445, Total Creatine Kinase 38, Troponin I 0.02 D, Total Protein 6.8, Albumin 3.5, Globulin 3.3, Albumin/Globulin Ratio 1.1 08/22/16 10:50: PT 10.2, INR 0.94, APTT 25.0 08/22/16 10:50: WBC 8.2, RBC 3.87, Hgb 11.3 L, Hct 35.8 L, MCV 92.5, MCH 29.2, MCHC 31.6, RDW 14.8 H, Plt Count 259, MPV 10.3, Gran % 62.5, Lymph % (Auto) 22.2 , [place] % (Auto) 10.2 H, Eos % (Auto) 4.4, Baso % (Auto) 0.7, Gran # 5.10, Lymph # 1.8, [place] # 0.8 H, Eos # 0.4, Baso # 0.06 - RAD Interpretation Radiology Orders: 08/22/16 10:51 CHEST PORTABLE [RAD] Stat - EKG Interpretation EKG Interpretation (Text): 08/22/16 16:44 EKG at 10:37 normal sinus rhythm rate of 93 with anteroseptal infarct age undetermined, t wave abnormality consider inferolateral ischemia Interpreted by ED Physician: Yes Type: 12 lead EKG Comparison: Different from prev. EKG - Medication Orders Current Medication Orders: Aspirin (Ecotrin) 81 mg PO DAILY BRIANNA Atorvastatin Calcium (Lipitor) 20 mg PO DAILY BRIANNA Clopidogrel Bisulfate (Plavix) 75 mg PO DAILY BRIANNA Enoxaparin Sodium (Lovenox) 30 mg SC DAILY BRIANNA PRN Reason: Protocol Furosemide (Lasix) 40 mg PO DAILY [facility] Doxycycline Hyclate 100 mg/ (Sodium Chloride) 100 mls @ 100 mls/hr IVPB Q12 BRIANNA PRN Reason: Protocol Last Admin: 08/22/16 12:19 Dose: 100 mls/hr Isosorbide Mononitrate (Imdur) 60 mg PO DAILY BRIANNA Metoprolol Tartrate (Lopressor) 12.5 mg PO BID BRIANNA Last Admin: 08/22/16 12:30 Dose: 12.5 mg Discontinued Medications Albuterol/Ipratropium (Duoneb 3 Mg/0.5 Mg (3 Ml) Ud) 3 ml IH STAT STA Stop: 08/22/16 10:54 Last Admin: 08/22/16 11:09 Dose: 3 ml Aspirin (Aspirin Chewable) 81 mg PO STAT STA Stop: 08/22/16 10:56 Last Admin: 08/22/16 11:00 Dose: 81 mg Clopidogrel Bisulfate (Plavix) 75 mg PO STAT STA Stop: 08/22/16 10:57 Last Admin: 08/22/16 11:00 Dose: 75 mg Enoxaparin Sodium (Lovenox) 50 mg SC STAT STA PRN Reason: Protocol Stop: 08/22/16 11:53 Last Admin: 08/22/16 12:04 Dose: 50 mg Ceftriaxone Sodium (Rocephin 1 Gram Ivpb) 1 gm in 100 mls @ 100 mls/hr IVPB DAILY BRIANNA PRN Reason: Protocol Methylprednisolone (Solu-Medrol) 125 mg IVP STAT STA Stop: 08/22/16 10:55 Last Admin: 08/22/16 11:09 Dose: 125 mg - Scribe Statement The provider has reviewed the documentation as recorded by the Inder Jenkins Provider Scribe Attestation: All medical record entries made by the Scribe were at my direction and personally dictated by me. I have reviewed the chart and agree that the record accurately reflects my personal performance of the history, physical exam, medical decision making, and the department course for this patient. I have also personally directed, reviewed, and agree with the discharge instructions and disposition. Disposition/Present on Arrival - Present on Arrival Any Indicators Present on Arrival: Yes History of DVT/PE: No History of Uncontrolled Diabetes: Yes Urinary Catheter: No History of Decub. Ulcer: No History Surgical Site Infection Following: None - Disposition Have Diagnosis and Disposition been Completed?: Yes Diagnosis: Chronic obstructive airway disease, Chest pain, Abnormal EKG, Abnormal chest xray, CHF (congestive heart failure) Disposition: HOSPITALIZED Disposition Time: 11:30 Patient Plan: Admission, Telemetry Patient Problems: Current Active Problems Problem Status Onset Abnormal EKG Acute Abnormal chest xray Acute Chest pain Acute Chronic obstructive airway disease Acute Condition: SERIOUS
[2016-08-22] MEDS ORDERED: Albuterol-Ipratrop 3 mg / 0.5 (3 ml) UD IH STA (10:53)
[2016-08-22 11:17] LABS: ADD MANUAL DIFF? NO
[2016-08-22 11:45] LABS: INR 0.94 (0.93-1.08)
[2016-08-22 11:48] LABS: ALB/GLOB RATIO 1.1 (1.1-1.8); ALKALINE PHOSPHATASE 73 U/L (38-133); ALT/SGPT 34 U/L (7-56); AST/SGOT 34 U/L (15-39); BILIRUBIN,TOTAL 0.3 mg/dL (0.2-1.3); BLOOD UREA NITROGEN 14 mg/dL (7-21); CALCIUM 9.3 mg/dL (8.4-10.5); CARBON DIOXIDE 39 mmol/L (21-33); CHLORIDE 94 mmol/L (95-110); GFR AFRICAN-AMERICAN > 60; GLUCOSE,RANDOM 148 mg/dL (70-110); POTASSIUM 4.5 mmol/L (3.6-5.0); SODIUM 137 mmol/L (132-148); TOTAL PROTEIN 6.8 g/dL (5.8-8.3)
[2016-08-22 11:52] LABS: BASO # 0.06 K/mm3 (0.0-2.0); BASO % 0.7 % (0.0-3.0); EOS # 0.4 (0.0-0.7); EOS % 4.4 % (1.5-5.0); GRAN % 62.5 % (50.0-68.0); HEMATOCRIT 35.8 % (36.0-48.0); LYMPH # 1.8 (1.2-3.4); LYMPH % 22.2 % (22.0-35.0); MEAN CELL VOLUME 92.5 fL (80.0-105.0); MEAN CORPUSCULAR HEMOGLOBIN 29.2 pg (25.0-35.0); MEAN CORPUSCULAR HGB CONC 31.6 g/dl (31.0-37.0); MEAN PLATELET VOLUME 10.3 fl (7.0-11.0); MONO # 0.8 (0.1-0.6); MONO % 10.2 % (1.0-6.0); PLATELET COUNT 259 10^3/uL (120.0-450.0); RED CELL DISTRIBUTION WIDTH 14.8 % (11.5-14.5); WHITE BLOOD COUNT 8.2 10^3/ul (4.5-11.0)
[2016-08-22] MEDS ORDERED: Enoxaparin 60 mg Syringe SC STA (11:52)
[2016-08-22] MEDS ORDERED: cefTRIAXone 1 gm 1 GM/100 ML BAG IVPB SCH (12:00)
--- NOTE | 2016-08-22 12:17 | RAD ---
HISTORY: sob COMPARISON: 07/02/2016 FINDINGS: LUNGS: Chronic interstitial infiltrates are seen right greater than left. Findings are unchanged PLEURA: No significant pleural effusion identified, no pneumothorax apparent. CARDIOVASCULAR: Normal. OSSEOUS STRUCTURES: No significant abnormalities. VISUALIZED UPPER ABDOMEN: Normal. OTHER FINDINGS: None. IMPRESSION: Chronic interstitial infiltrate right greater than left
[2016-08-22 12:18] LABS: TROPONIN I 0.02 ng/mL
--- NOTE | 2016-08-22 12:28 | CARD ---
APPROVED REPORT EKG Measurement Heart [id number] MD [id number] <Conclusion> Normal sinus rhythm Anteroseptal infarct, age undetermined T wave abnormality, consider inferolateral ischemia Abnormal ECG
--- NOTE | 2016-08-22 13:20 | CON ---
DATE: 08/22/2016 SERVICE: Cardiology. CONSULTING PHYSICIAN: Dr. Trae Henry. REASON FOR CONSULTATION: Abnormal T-wave, shortness of breath, some chest discomfort, history of cor onary artery disease. BRIEF CLINICAL HISTORY: This is a 71-year-old female with past medical history of COPD, history of c oronary artery disease, type 2 diabetes, multiple stents in the past, came in with complaint of short ness of breath, ____ relationship with some chest discomfort, T-waves. EKG was done that shows T inv ersion in inferior and lateral leads. Denies any definite chest pain, but patient cannot differentia te because she said ____ get exacerbation of COPD always get chest pain and shortness of breath. PAST MEDICAL HISTORY: Significant for diabetes, hypertension, hyperlipidemia, history of multiple PT Beatrice, history of multiple MIs, history of COPD, history of home oxygen. Previous cardiac workup as follows: The patient had a stress test 06/16/2014 that shows anteroseptal reversible ischemia, ejection fraction 60%. Following that, the patient had a cardiac catheterizatio n that revealed nonobstructive coronary artery disease as mentioned below. Medical treatment recomme nded. The patient had echocardiography 06/09/2015 that shows ejection fraction 55%, mild MR, mild TR. Also, the patient had a carotid duplex scan done recently 11/29/2015 that shows 60-79% left ICA steno sis and right 20-39% stenosis. Recent cardiac catheterization 12/16/2015 done that was left heart cat heterization, bilateral carotid angiogram as well as right heart catheterization. Finding as follows : Left main essentially free of significant disease and it trifurcates into LAD, circumflex and yamilka s intermedius. LAD has a patent stent noted. Circumflex medium caliber vessel. Obtuse marginal med ium caliber vessel essentially free of significant disease. Ramus intermedius is a large caliber ves pranav, 55% stenosis noted in ostium. Right coronary artery is a medium size vessel. Diffuse calcifica tion noted throughout the vessel without any significant stenosis noted. Patent stent in proximal to mid LAD was noted. Right dominant artery system was noted. Ejection fraction 55-60%, EDP was in th e range of 18-20. No gradient across aortic valve noted. Bilateral carotid angiogram revealed normal right common carotid artery. Left ICA 30% stenosis noted . Right heart catheterization revealed RA 7-8, right ventricle pressure 35/7, PA pressure 37/15, jason n PA was 22. Pulmonary capillary wedge pressure 8-10 mmHg, pulmonary vascular resistance 3.5 Harris u nits, cardiac output 3.5. Cardiac index 2.1. Impression was nonobstructive coronary artery disease limited only to ramus intermedius ostial 55% stenosis, preserved LV function, ejection fraction 55-60 %, EDP was in the range of 18-20. Mildly elevated right pressure, mild left common and internal phillips tid artery stenosis, hemodynamically not significant. Medical treatment recommended. CURRENT MEDICATIONS: The patient at home was taking Requip 2 mg, Spiriva, pantoprazole, Singulair, l isinopril, isosorbide, insulin, clopidogrel, atorvastatin and aspirin. REVIEW OF SYSTEMS: As per HPI. PHYSICAL EXAMINATION: HEENT: PERRLA. Extraocular muscles intact. NECK: Supple. No carotid bruits. No thyromegaly. CHEST: Clear to auscultation. There are scattered rhonchi noted HEART: S1, S2 regular. ABDOMEN: Soft. EXTREMITIES: Clubbing and cyanosis negative. VITAL SIGNS: Temperature afebrile, heart rate 93, blood pressure 134/76. LABORATORY DATA: Blood workup as follows: WBC 8.8, hemoglobin 10.4, hematocrit 32.7, platelet count 312. Chemistry shows sodium pending. EKG shows normal sinus, T-wave inversion. IMPRESSION: Acute exacerbation of chronic obstructive pulmonary disease, underlying coronary artery disease, rule out coronary ischemia because of abnormal T-wave. Recent cardiac catheterization on nonobstructive coronary artery disease, only limited to ramus intermedius, history of right h eart catheterization, mildly elevated right pressure, pulmonary vascular resistance 3.5 Harris units, bilateral angiogram, left internal carotid artery 20-39% stenosis, not significant. RECOMMENDATION: Aggressive treatment of COPD. Start Lovenox. We will follow up the lab. We will f victorina with you. Thank you, Dr. Sher, for providing us opportunity in taking care of the patient. We will follow w ith you. Trae Henry MD cc: [id number] TT: 08/22/2016 13:19:57 Confirmation # [id number] Dictation # [id number] tn
[2016-08-22 16:01] VITALS: BMI 21.4
[2016-08-22] MEDS ORDERED: Levalbuterol 1.25 MG/3 ML Inhal Soln UD IH PRN (18:00)
[2016-08-22] MEDS: Pantoprazole 40 mg EC Tab PO SCH (18:42)
[2016-08-22] MEDS: Metoprolol Succinate 50 mg XL Tab PO SCH (19:08)
--- NOTE | 2016-08-22 22:29 | HP ---
HISTORY OF PRESENT ILLNESS: The patient is a 71-year-old brought in by ambulance because of difficul ty breathing. Denies any chest pain. Does complain of cough and congestion with feeling of air hung er. The patient was found to have ischemic changes on EKG with T-wave inversion in anterior and infe rior leads so she is being admitted for close observation and further management. PAST MEDICAL HISTORY: 1. She has significant past medical history of chronic obstructive pulmonary disease. 2. Coronary artery disease. 3. Status post angioplasty. 4. Hyperlipidemia. 5. Restless leg syndrome. 6. Insulin-dependent diabetes. The patient's last cath was in December and she was told there is n o intervention needed. ALLERGIES: SHE IS ALLERGIC TO FISH, IODINE, OXAPROZIN AND PENICILLIN. MEDICATIONS AT HOME: 1. She is on Spiriva 18 mcg daily. 2. Protonix 40 mg daily. 3. Singulair 10 mg at bedtime. 4. Metoprolol 50 mg daily. 5. Lasix 40 mg daily. 6. Lisinopril 30 mg daily. 7. Isosorbide 60 mg daily. 8. Levemir 25 units at bedtime. 9. Plavix 75 daily. 10. Lipitor 20 mg daily. 11. Aspirin 81 daily. 12. Requip 2 mg at bedtime. 13. Primidone 50 mg at bedtime. SOCIAL HISTORY: She is and lives with her . She used to be a heavy smoker in the [facility], quit 6 years ago. REVIEW OF SYSTEMS: Significant for shortness of breath and cough. Denies any chest pain. No nausea or vomiting. PHYSICAL EXAMINATION: GENERAL: She is awake and alert, communicative. VITAL SIGNS: She is afebrile, pulse 97, respirations 22, blood pressure 155/58. LUNGS: Bilateral fair airflow, few expiratory rhonchi. HEART: S1, S2 audible. ABDOMEN: Soft, nontender, no rebound, no guarding. She has ventral hernia that is reducible. NEUROLOGIC: She is awake and alert, communicative. LABORATORY DATA: WBC is 8.2, hemoglobin 11.3, hematocrit 35.8. Platelets 259. PT 10.2, INR 0.94. Chemistry: Sodium 137, potassium 4.5, chloride 95, CO2 32, BUN 14, creatinine 0.7, blood sugar 148. LFTs are within normal limits. BNP is 1150. She has x-ray chest done that shows chronic interstiti al infiltrate, right greater than the left. ASSESSMENT: 1. Shortness of breath, cardiac versus chronic obstructive pulmonary disease. 2. Bilateral interstitial infiltrate. 3. Chronic obstructive pulmonary disease exacerbation. 4. Ischemic EKG changes, rule out acute myocardial infarction. 5. Restless leg syndrome. 6. Insulin-dependent diabetes. PLAN: We will put the patient in telemetry. We will start her on IV steroids, antibiotics. She has been started on doxycycline. We will continue nebulizer treatment. Monitor her blood sugar and con sult by Dr. Chamberlain and Dr. Henry has been requested. We will reevaluate the patient in a.m. Ten Sher MD cc: [id number] TT: 08/22/2016 22:27:59
[2016-08-22] MEDS: Insulin Lispro (HUMAlog) HIGH Coverage SC SCH (23:10)
[2016-08-22] MEDS: Insulin Detemir 100 units/ml Vial (Levemir) SC SCH (23:10)
[2016-08-22] MEDS: MethylPREDNISolone 40 mg Vial IV SCH (23:22)
[2016-08-23] MEDS ORDERED: Levalbuterol 0.63 MG/3 ML Inhal Soln UD IH PRN (07:09)
[2016-08-23 07:45] LABS: ADD MANUAL DIFF? NO
[2016-08-23 07:57] LABS: BASO # 0.01 K/mm3 (0.0-2.0); BASO % 0.1 % (0.0-3.0); GRAN # 6.65 (1.4-6.5); HEMATOCRIT 34.2 % (36.0-48.0); LYMPH # 1.1 (1.2-3.4); LYMPH % 13.5 % (22.0-35.0); MEAN CELL VOLUME 90.7 fL (80.0-105.0); MEAN CORPUSCULAR HEMOGLOBIN 28.9 pg (25.0-35.0); MEAN CORPUSCULAR HGB CONC 31.9 g/dl (31.0-37.0); MEAN PLATELET VOLUME 10.2 fl (7.0-11.0); MONO # 0.4 (0.1-0.6); MONO % 4.4 % (1.0-6.0); PLATELET COUNT 249 10^3/uL (120.0-450.0); RED CELL DISTRIBUTION WIDTH 14.6 % (11.5-14.5); WHITE BLOOD COUNT 8.1 10^3/ul (4.5-11.0)
[2016-08-23] MEDS: Insulin Lispro (HUMAlog) HIGH Coverage SC SCH ×4 (07:57→22:00)
[2016-08-23 08:12] LABS: ALKALINE PHOSPHATASE 69 U/L (38-133); ALT/SGPT 29 U/L (7-56); AST/SGOT 34 U/L (15-39); BILIRUBIN,TOTAL 0.3 mg/dL (0.2-1.3); BLOOD UREA NITROGEN 22 mg/dL (7-21); CALCIUM 8.9 mg/dL (8.4-10.5); CARBON DIOXIDE 32 mmol/L (21-33); CHLORIDE 94 mmol/L (98-107); CHOLESTEROL 151 mg/dL (130-200); GFR AFRICAN-AMERICAN > 60; GLUCOSE,RANDOM 265 mg/dL (70-110); POTASSIUM 4.6 mmol/L (3.6-5.0); SODIUM 131 mmol/L (132-148); TOTAL PROTEIN 6.5 g/dL (5.8-8.3)
[2016-08-23 08:21] LABS: MAGNESIUM 1.4 mg/dL (1.7-2.2); PHOSPHOROUS 4.7 mg/dL (2.5-4.5)
[2016-08-23 08:21] LABS: TROPONIN I 0.03 ng/mL
[2016-08-23] MEDS: Levalbuterol 0.63 MG/3 ML Inhal Soln UD IH SCH ×3 (08:23→22:00)
[2016-08-23] MEDS: Budesonide 0.5 mg/2 ml Inhal Susp UD IH SCH ×2 (08:23→22:00)
[2016-08-23] MEDS ORDERED: Metoprolol Succinate 50 mg XL Tab PO SCH (10:00)
--- NOTE | 2016-08-23 10:27 | PN ---
DATE: 08/23/2016 REASON FOR CONSULTATION AND FOLLOWUP: Abnormal T-wave, shortness of breath, acute exacerbation of CO PD, bronchitis, no evidence of myocardial infarction. BRIEF CLINICAL HISTORY: A 71-year-old female with past medical history significant for COPD, history of coronary artery disease, status post multiple stents, type 2 diabetes, hypertension, hyperlipidem ia. Recent cath in 12/2016, nonobstructive coronary artery disease. Medical treatment recommended. Ejection fraction 55%-60%, EDP was in the range of 18-20. Admitted yesterday with apparently ____ ac parker exacerbation of COPD, bronchitis, green colored phlegm, gets short-winded. T-wave shows new mercedes ges, but so far, no evidence of acute SD. PHYSICAL EXAMINATION: VITAL SIGNS: Temperature afebrile, heart rate 94, blood pressure 147/76. HEENT: PERRLA. Extraocular muscles intact. NECK: Supple. No carotid bruits. No thyromegaly. CHEST: Clear to auscultation. HEART: S1, S2 regular. ABDOMEN: Soft. EXTREMITIES: Clubbing and cyanosis negative. LABORATORY DATA: Blood workup as follows: WBC ____, hemoglobin 10.9, hematocrit 34.2, platelet coun t 249. Chemistry shows sodium 131, potassium ____, chloride 94, carbon dioxide 32, anion gap of 10, BUN 22, creatinine 0.7, total protein 6.5, albumin 3.0, albumin/globulin ratio 1. Troponin 0.02 x 2 negative. IMPRESSION: Acute exacerbation of chronic obstructive pulmonary disease, bronchitis, advanced chroni c obstructive pulmonary disease, diabetes, hypertension, hyperlipidemia, coronary artery disease, sta tus post multiple stents. Last catheterization 12/2016, preserved LV function, ejection fraction 55%- 60%, patent stent, nonobstructive coronary artery disease. EDP was in the range of 55-60. Bilateral carotid angiogram also revealed nonobstructive carotid artery disease, left internal carotid artery 30% stenosis. Right heart catheterization revealed RA 7-8, right ventricle pressure 35/7, PA 35/15, mean PA 22. Pulmonary capillary wedge pressure 8-10. Pulmonary vascular resistance 3.5 Wood unit. RECOMMENDATION: We will continue DVT prophylaxis. Continue aggressive treatment of COPD. Resume ge ntle diuretics. Continue atorvastatin. Continue aspirin. Continue metoprolol, blood pressures tole rate. We will increase metoprolol to 25 b.i.d. from this morning. Also, patient was at home on dulce nopril, so put 10 mg lisinopril as well. We will follow with you. Thank you, Dr. Sher, for providing the opportunity in taking care of this patient. Trae Henry MD cc: [id number] TT: 08/23/2016 10:27:35 Confirmation # [id number] Dictation # [id number]
[2016-08-23] MEDS: Enoxaparin 30 mg Syringe SC SCH (10:39)
[2016-08-23] MEDS: Tiotropium 18 mcg Cap For Inhalation IH SCH (10:40)
[2016-08-23] MEDS: Metoprolol Succinate 50 mg XL Tab PO SCH (10:40)
[2016-08-23] MEDS: MethylPREDNISolone 40 mg Vial IV SCH ×2 (10:40→22:29)
[2016-08-23] MEDS: Pantoprazole 40 mg EC Tab PO SCH (10:40)
--- NOTE | 2016-08-23 11:14 | CON ---
DATE: 08/23/2016 PULMONARY CONSULTATION REFERRING PHYSICIAN: Trae Henry MD. REASON FOR CONSULTATION: Chronic obstructive pulmonary disease. HISTORY OF PRESENT ILLNESS: The patient is a 71-year-old female with past medical history significant for advanced chronic obstructive pulmonary disease, on home oxygen, advanced interstitial lung disease, extensive coronary artery disease (status post multiple stents), valvular heart disease, diabetes mellitus , who presents to [facility] with increasing shortness of breath at rest, dyspnea on exertion, cough, and minimal sputum production for the past 3 days. The patient does state that her chest "feels tight." However, she denies chest pain, coughing up of blood, or chest pain - made worse with deep respirations. There is no history of temperatures, chills, or infectious exposure. There is no history of night sweats, weight loss, or appetite change - prior to the above events. No history of leg or calf pains. No history of syncope or diaphoresis. No history of recent travel or trauma. REVIEW OF SYSTEMS: No history of nausea, vomiting, or diarrhea. No acute urinary symptoms. No new neurological or musculoskeletal complaints. The rest of the review of systems is negative. ALLERGIES: IODINE AND PENICILLIN. SOCIAL HISTORY: Positive for tobacco, negative for alcohol. FAMILY HISTORY: No inheritable diseases. HOME MEDICATIONS: Include Spiriva, Protonix, Singulair, Toprol, Lasix, Zestril , Imdur, Plavix, Lipitor, Ecotrin, Combivent, Requip, primidone. PHYSICAL EXAMINATION: GENERAL: The patient appears comfortable this morning. She is not short of breath at rest. VITAL SIGNS: Temperature is 97.8, pulse 94, respirations 18/20, blood pressure 147/78. Oxygen saturation on nasal cannula is 98%. HEENT: Normocephalic, atraumatic. NECK: No JVD. CARDIOVASCULAR: Systolic ejection murmur at the lower left sternal border. No S3 gallop. LUNGS: Chronic crackles at the bases. Mild bilateral rhonchi and wheezing are appreciated. EXTREMITIES: No clubbing, cyanosis, or edema. Calves are nontender to palpation. GASTROINTESTINAL: Abdomen is soft, nontender, nondistended. Bowel sounds are positive. SKIN: No acute rash. NEUROLOGIC: Limited at the present time. PERTINENT LABORATORY DATA: Chest x-ray was done yesterday and reviewed. There are chronic interstitial changes noted. The most present film is not significantly changed from the previous films. CBC: White count 8.2, hemoglobin 11.3, hematocrit 35.8, platelets of 259. Complete metabolic profile: Chloride 94, carbon dioxide 39, glucose 148, B- type natriuretic peptide 1150. The rest of the metabolic profile is within normal limits. IMPRESSION: 1. Acute bronchitis. 2. Advanced chronic obstructive pulmonary disease - on home oxygen. 3. Advanced interstitial lung disease. 4. Extensive coronary artery disease. 5. Diabetes mellitus. 6. Mild anemia. PLAN: The patient presents to [facility] with a 3-day history of worsening pulmonary symptoms. I did review the chest x-ray as above. The most current film is not significantly changed from the previous films. As above, the patient does have a history of advanced chronic obstructive pulmonary disease, as well as advanced interstitial lung disease. On physical exam, the patient is in mild bronchospasm. I will continue with the low-dose intravenous steroids for now. In addition, I will also order scheduled Xopenex nebulizer treatments, as well as inhaled Pulmicort. There is no significant alveolar arterial gradient. Oxygen saturation on nasal cannula is 98%. The patient has also been placed on antibiotic therapy. There are no temperatures noted. There is no leukocytosis. Cardiology evaluation with Dr. Henry is noted. The patient does feel better and is clinically improved this morning. Additional pulmonary intervention will be based on the clinical status of the patient. I will discuss the above with the attending physician. Thank you very much for this pulmonary consultation. Randell Becker MD cc: [phone] TT: 08/23/2016 11:13:49 Confirmation # [id number] Dictation # [id number] jn DIAMANTE
[2016-08-23] MEDS: Insulin Lispro (humaLOG) MIX 75/25(10 ml) SC SCH (18:11)
[2016-08-23] MEDS ORDERED: Magnesium Sulfate 1 gm in D5W 1 GM/100 ML BAG IV ONE (19:04)
--- NOTE | 2016-08-23 19:41 | CARD ---
APPROVED REPORT EXAM: Two-dimensional and M-mode echocardiogram with Doppler and color Doppler. INDICATION Chest Pain 2D DIMENSIONS Left Atrium (2D)4.0 (1.6-4.0cm)IVSd0.7 (0.7-1.1cm) LVDd4.2 (3.9-5.9cm)PWd1.0 (0.7-1.1cm) LVDs3.0 (2.5-4.0cm)FS (%) 29.2 % LVEF (%)56.4 (>50%) M-Mode DIMENSIONS Aortic Root2.70 (2.2-3.7cm)Aortic Cusp Exc.1.40 (1.5-2.0cm) Aortic Valve AoV Peak Qdkkjmgo589.0cm/Vasyl Peak GR.15mmHg Mitral Valve MV E Xgjvvdxg463.0cm/sMV A Eeaepqhb57.8cm/sE/A ratio1.2 TDI Lateral E' Peak V5.75cm/sMedial E' Peak V5.07cm/sE/Lateral E'18.6 E/Medial E'21.1 Pulmonary Valve PV Peak Vwazyich15.9cm/sPV Peak Grad.3mmHg Tricuspid Valve TR Peak Kuvgvrqk896ut/sRAP ZRSVNCLS32weQkBK Peak Gr.41mmHg [id number] LEFT VENTRICLE The left ventricle is normal size. There is normal left ventricular wall thickness. The left ventricular function is normal.EF-55% There is normal LV segmental wall motion. The left ventricular diastolic function is normal. No left ventricle thrombus noted on this study. There is no ventricular septal defect visualized. There is no left ventricular aneurysm. There is no mass noted in the left ventricle. RIGHT VENTRICLE The right ventricle is mildly dilated. There is normal right ventricular wall thickness. Systolic function is mildly reduced. ATRIA The left atrium is mildly dilated. The right atrium is mildly dilated. The interatrial septum is intact with no evidence for an atrial septal defect. AORTIC VALVE The aortic valve is calcified and displays decreased opening. There is trace aortic regurgitation. There is mild valvular aortic stenosis. There is no aortic valvular vegetation. MITRAL VALVE The mitral valve is thickened but opens well. Mitral regurgitation is mild. There is no mitral valve stenosis. There is no evidence of mitral valve prolapse. TRICUSPID VALVE The tricuspid valve leaflets are thickened , but open well. There is mild to moderate tricuspid regurgitation.RVSP-51 mmof hg. There is no tricuspid valve stenosis. There is no tricuspid valve prolapse or vegetation. PULMONIC VALVE The pulmonic valve is borderline thickened. There is trace pulmonic valvular regurgitation. GREAT VESSELS The aortic root is normal in size. The ascending aorta is normal in size. The pulmonary artery is normal. The IVC is normal in size and collapses >50% with inspiration. PERICARDIAL EFFUSION There is no pleural effusion. There is no pericardial effusion. <Conclusion> The left ventricle is normal size. There is normal left ventricular wall thickness. The left ventricular function is normal.EF-55% There is normal LV segmental wall motion. There is trace aortic regurgitation. There is mild valvular aortic stenosis. Mitral regurgitation is mild. There is mild to moderate tricuspid regurgitation.RVSP-51 mmof hg.
--- NOTE | 2016-08-23 20:08 | PN ---
DATE: 08/23/2016 The patient is a 71-year-old, seen and examined, sitting in chair. No chest pain. Denies shortness of breath, cough and congestion. PHYSICAL EXAMINATION: VITAL SIGNS: She is afebrile, pulse 94, respirations 18, blood pressure 140/73. LUNGS: Bilateral expiratory rhonchi, more pronounced posteriorly in middle and lower lung regions. HEART: S1, S2 audible. ABDOMEN: Soft, nontender, no rebound, no guarding. NEUROLOGIC: The patient is awake and alert and communicative. EXTREMITIES: Bilateral leg, no edema. LABORATORY EXAM: WBC 8.1, hemoglobin 10.9, hematocrit 34.2, platelet 249. Chemistry: Sodium 131, p otassium 4.6, chloride 94, CO2 32, BUN 22, creatinine 0.7, blood sugar of 256, magnesium 1.4, phospho marianna 4.7. ASSESSMENT: 1. Chronic obstructive pulmonary disease exacerbation. 2. Ischemic changes by EKG. 3. Asthmatic bronchitis. 4. History of coronary artery disease status post cardiac catheterization in 12/2015. 5. Hyperlipidemia. 6. Status post multiple angioplasties. 7. Insulin-dependent diabetes. PLAN: The patient is currently on doxycycline, will continue that. Aspirin 81 daily. Monitor her b lood sugar and start her on NovoLog mix 75/25 12 units before breakfast and 12 before dinner. Monito r blood sugar. Continue her on IV Lasix. Currently she is on DVT prophylaxis. Continue her on PPI and Pulmicort. She is getting IV steroids. Will reevaluate patient in a.m. Her telemetry is being discontinued. Ten Sher MD cc: [phone] TT: 08/23/2016 20:07:54 Confirmation # [id number] Dictation # [id number] flo
[2016-08-23] MEDS: Insulin Detemir 100 units/ml Vial (Levemir) SC SCH (22:22)
[2016-08-24] MEDS: Levalbuterol 0.63 MG/3 ML Inhal Soln UD IH SCH ×5 (03:15→19:29)
[2016-08-24] MEDS: Budesonide 0.5 mg/2 ml Inhal Susp UD IH SCH ×3 (08:09→19:29)
[2016-08-24] MEDS: Insulin Lispro (humaLOG) MIX 75/25(10 ml) SC SCH ×2 (08:40→17:30)
[2016-08-24] MEDS: Insulin Lispro (HUMAlog) HIGH Coverage SC SCH ×4 (08:40→22:45)
[2016-08-24] MEDS: Potassium & Sodium Phosphate PO SCH ×2 (09:53→17:30)
[2016-08-24] MEDS: Enoxaparin 30 mg Syringe SC SCH (09:53)
[2016-08-24] MEDS: Metoprolol Succinate 50 mg XL Tab PO SCH (09:54)
[2016-08-24] MEDS: Pantoprazole 40 mg EC Tab PO SCH (09:54)
[2016-08-24] MEDS: Tiotropium 18 mcg Cap For Inhalation IH SCH (09:54)
[2016-08-24] MEDS: MethylPREDNISolone 40 mg Vial IV SCH ×2 (09:54→21:45)
[2016-08-24 10:50] LABS: ALKALINE PHOSPHATASE 64 U/L (38-133); ALT/SGPT 29 U/L (7-56); AST/SGOT 27 U/L (15-39); BILIRUBIN,TOTAL 0.4 mg/dL (0.2-1.3); BLOOD UREA NITROGEN 33 mg/dL (7-21); CALCIUM 8.9 mg/dL (8.4-10.5); CARBON DIOXIDE 36 mmol/L (21-33); CHLORIDE 89 mmol/L (98-107); GFR AFRICAN-AMERICAN > 60; GLUCOSE,RANDOM 267 mg/dL (70-110); MAGNESIUM 1.5 mg/dL (1.7-2.2); POTASSIUM 4.9 mmol/L (3.6-5.0); SODIUM 131 mmol/L (132-148); TOTAL PROTEIN 6.8 g/dL (5.8-8.3)
--- NOTE | 2016-08-24 16:01 | PN ---
DATE: 08/24/2016 HISTORY OF PRESENT ILLNESS: The patient is a 71-year-old with past medical history of severe chronic obstructive pulmonary disease on home oxygen, also advanced interstitial disease, admitted with ches t tightness and shortness of breath. There is no history of temperature, chills. PHYSICAL EXAMINATION: VITAL SIGNS: Her temperature is 98, pulse 94, respirations are 20, blood pressure is 140/78. Oxygen saturation on nasal cannula is 98%. HEAD, EARS, NOSE AND THROAT: Normocephalic, atraumatic. HEART: S1, S2, no S3, regular. PULMONARY: Chronic crackles at both bases, few bilateral wheezes. EXTREMITIES: No clubbing, cyanosis or edema. GASTROINTESTINAL: Soft, nontender. No organomegaly. SKIN: Clear with no cyanosis and no skin rashes. NEUROLOGIC: Limited at present time. ASSESSMENT: 1. Advanced chronic obstructive pulmonary disease exacerbation. 2. Hypoxia, on home oxygen. 3. Acute bronchitis. 4. Interstitial lung disease. PLAN: I will continue with low-dose intravenous steroids. She is on Xopenex nebulizer treatment as well as inhalant Pulmicort. The oxygen saturation is good on nasal cannula. We will continue with p resent therapy. There is no temperature, leukocytosis. Yossi Granda MD cc: [id number] TT: 08/24/2016 16:01:17 Confirmation # [id number] Dictation # [id number]
[2016-08-24] MEDS ORDERED: Insulin Lispro (humaLOG) MIX 75/25(10 ml) SC SCH (17:40)
--- NOTE | 2016-08-24 18:12 | PN ---
DATE: 08/24/2016 SUBJECTIVE: The patient is a 71-year-old, seen and examined. She states she had chest pain last nig ht, but is feeling better now. Cough is better. She gets short of breath walking small distance. PHYSICAL EXAMINATION: VITAL SIGNS: She is afebrile, pulse 70, respirations 22, blood pressure 143/71. LUNGS: Bilateral few expiratory rhonchi. HEART: S1, S2 audible. ABDOMEN: Soft, nontender, no rebound, no guarding. NEUROLOGIC: She is awake and alert, communicative. Able to move all extremities. EXTREMITIES: Bilateral legs no edema. LABORATORY EXAMINATION: Sodium 131, potassium 4.9, chloride 89, CO2 36, BUN 33, creatinine 0.7, bloo d sugar 341. ASSESSMENT: 1. Chronic obstructive pulmonary disease exacerbation. 2. Stable angina. 3. History of coronary artery disease status post multiple angioplasties. 4. Insulin-dependent diabetes. 5. Asthmatic bronchitis. PLAN: Currently, the patient is on doxycycline. She is on aspirin 81 daily. She is getting 75/25, 12 units and blood sugar seems to be running high, I will increase to 15 units before breakfast and b efore dinner and will monitor her blood sugar. I will increase her isosorbide to 90 mg since her blo od pressure is running okay. I will continue her on DVT prophylaxis. She is getting Neutra-Phos. C ontinue her on 30 mg of methylprednisone twice a day and will see the response in a.m. and might tape r down. TCU evaluation has been requested. If the patient is accepted, she will be transferred to [facility] in a.m. Ten Sher MD cc: [id number] TT: 08/24/2016 18:11:38 Confirmation # [id number] Dictation # [id number] flo
--- NOTE | 2016-08-24 20:32 | PN ---
DATE: 08/24/2016 The patient is in room 360, bed #2. REASON FOR CONSULTATION AND FOLLOWUP: Abnormal T-wave, shortness of breath, acute exacerbation of CO PD, bronchitis. HISTORY OF PRESENT ILLNESS: A 71-year-old female with past medical history significant for COPD, cor onary artery disease, status post multiple stents, type 2 diabetes, hypertension, hyperlipidemia. Re cent cardiac catheterization 12/16/2015 showed patent stents, nonobstructive coronary artery disease, ejection fraction 55%-60%, medical treatment was recommended. The patient this time was admitted wit h shortness of breath. Was found to be exacerbation of chronic obstructive pulmonary disease, bronch itis, along with greenish color expectoration. The patient this morning had, for a short while, a bu rning type of chest pain, which was relieved by itself. PHYSICAL EXAMINATION: VITAL SIGNS: Blood pressure is 140/80, respirations 20, pulse 74, temperature 98. HEAD: Normocephalic. EYES: Pupils normal. Conjunctivae are slightly pale. NECK: JVP low. Carotids equal. THORAX: AP diameter normal. LUNGS: Bilateral expiratory wheezing. CARDIOVASCULAR: S1, S2. ABDOMEN: Soft, nontender, no organomegaly. Bowel sounds normal. EXTREMITIES: No clubbing, no cyanosis. LABORATORY DATA: WBC 8.1, hemoglobin 10.9, hematocrit 34.2, platelet 249. Sodium 131, potassium 4.9 , BUN 33, creatinine 0.7, random sugar 267, calcium 8.9. DIAGNOSES: Acute exacerbation of chronic obstructive pulmonary disease, bronchitis, advanced obstruc tive pulmonary disease, diabetes, hypertension, hyperlipidemia, coronary artery disease, status post multiple stents, hyperlipidemia. The patient's cardiac catheterization and bilateral carotid angiogr am findings have been mentioned in our consult in detail. Echo on 08/23/2016 showed left ventricle no rmal size, normal left ventricle wall thickness, ejection fraction 55%, which is normal, trace aortic regurgitation, mild valvular aortic stenosis, mitral regurgitation, mild, RVSP 51 mmHg, consistent w ith moderate pulmonary hypertension. PLAN: To continue aggressive therapy for the patient's COPD. The patient has slight burning type of chest pain, but recent cardiac catheterization showed nonobstructive coronary artery disease. The p atient is on aspirin 81 mg p.o. daily, insulin as ordered, isosorbide mono 90 mg daily, furosemide 40 mg daily, Lipitor 20 mg daily, Lovenox 30 mg subQ daily, Plavix 75 mg p.o. daily, Singulair 10 mg p. o. at bedtime, methylprednisone 30 mg IV q. 12 hours, metoprolol succinate, which is Toprol-XL 50 mg p.o. daily, Xopenex hand nebulizer therapy, lisinopril 10 mg daily. We will continue with this thera py and we will monitor with you and follow with you. Trae Villegas MD cc: [phone] TT: 08/24/2016 20:32:20 Confirmation # [id number] Dictation # [id number] madiha
[2016-08-24] MEDS: Insulin Detemir 100 units/ml Vial (Levemir) SC SCH (21:44)
[2016-08-25] MEDS: Levalbuterol 0.63 MG/3 ML Inhal Soln UD IH SCH ×2 (01:33→07:30)
[2016-08-25] MEDS: Budesonide 0.5 mg/2 ml Inhal Susp UD IH SCH (07:30)
[2016-08-25 08:19] VITALS: BP 150/73; PULSE 60; RESP 22; TEMP 97.8; O2SAT 96
--- NOTE | 2016-08-25 08:40 | PN ---
DATE: 08/25/2016 SUBJECTIVE: The patient appears comfortable this morning. She is not short of breath at rest. PHYSICAL EXAMINATION: VITAL SIGNS: Temperature is 98.0, pulse 74, respirations 19, blood pressure 140 /80. Oxygen saturation on nasal cannula ranges between 91-97%. HEENT: Normocephalic, atraumatic. No JVD. CARDIOVASCULAR: Systolic ejection murmur at the lower left sternal border. No S3 gallop. LUNGS: Chronic crackles at the bases. Much less rhonchi. No wheezing this morning. EXTREMITIES: No clubbing, cyanosis, or edema. Calves are nontender to palpation. GASTROINTESTINAL: Abdomen is soft, nontender, nondistended. Bowel sounds are positive. SKIN: No acute rash. NEUROLOGIC: Limited at the present time. IMPRESSION: 1. Acute bronchitis. 2. Advanced chronic obstructive pulmonary disease - on home oxygen. 3. Advanced interstitial lung disease. 4. Extensive coronary artery disease. 5. Diabetes mellitus. 6. Mild anemia. PLAN: The patient appears very comfortable this morning. She is not short of breath at rest. She states she is feeling much better overall. On physical exam, there is significantly less bronchospasm. In addition, there is no significant alveolar arterial gradient. I will continue with the current nebulizer treatments and decrease the intravenous steroids this morning. In addition, there is no history of temperatures. There is no leukocytosis. I will also change to oral antibiotic therapy this morning. Cardiology evaluation is ongoing. Inputs are noted. Clinical status of the patient is significantly improved - compared to the initial presentation. However, again, the overall status/prognosis of this elderly patient - with severe lung disease - remains very guarded at best. I will discuss the above with the attending physician. Randell Becker MD cc: [phone] TT: 08/25/2016 08:40:15 Confirmation # [id number] Dictation # [id number] BOBBY
[2016-08-25] MEDS: Insulin Lispro (HUMAlog) HIGH Coverage SC SCH ×2 (09:24→11:21)
[2016-08-25] MEDS: Potassium & Sodium Phosphate PO SCH (09:27)
[2016-08-25] MEDS: Enoxaparin 30 mg Syringe SC SCH (09:27)
[2016-08-25] MEDS: Pantoprazole 40 mg EC Tab PO SCH (09:28)
[2016-08-25] MEDS: Metoprolol Succinate 50 mg XL Tab PO SCH (09:30)
[2016-08-25] MEDS: Tiotropium 18 mcg Cap For Inhalation IH SCH (09:30)
[2016-08-25] MEDS ORDERED: MethylPREDNISolone 40 mg Vial IVP SCH (10:00)
--- NOTE | 2016-08-25 12:18 | PN ---
DATE: 08/25/2016 LOCATION: The patient is in room 360, bed #2. REASON FOR CONSULTATION AND FOLLOWUP: Abnormal T-wave, shortness of breath, exacerbation of COPD, br onchitis. HISTORY OF PRESENT ILLNESS: A 71-year-old female known to have severe COPD, coronary artery disease, status post multiple stents, type 2 diabetes, hypertension, hyperlipidemia, cardiac catheterization 12/16/2015 showed patent stents, ejection fraction 55-60%. The patient now admitted with shortness o f breath and found to have exacerbation of COPD, bronchitis. The patient is being treated for that. Denies any further chest pain. She still has cough and at times, she gets shortness of breath. Den ies palpitation. PHYSICAL EXAMINATION: VITAL SIGNS: Blood pressure 150/73, respirations 22, pulse 60, temperature 97.8. HEAD: Normocephalic. EYES: Pupils normal. Conjunctivae slightly pale. NECK: JVP low. Carotid equal. THORAX: AP diameter normal. LUNGS: Bilateral expiratory wheezing. CARDIOVASCULAR: S1, S2. ABDOMEN: Soft, nontender, no organomegaly. Bowel sounds normal. EXTREMITIES: No clubbing, no cyanosis. LABORATORY DATA: WBC 8.1, hemoglobin 10.9, hematocrit 34.2, platelet 249. Sodium 131, potassium 4.9 , BUN 33, creatinine 0.7, random sugar 152, magnesium 1.5. AST, ALT normal. Total protein and album in normal. DIAGNOSES: Acute exacerbation of chronic obstructive pulmonary disease, diabetes, hypertension, hype rlipidemia, coronary artery disease, status post multiple stents, cardiac catheterization as above. Echo on 08/23, 217 throat normal left ventricular ejection fraction of 55%, mild valvular aortic steno sis, mild mitral regurg, right ventricular systolic pressure 51 mmHg consistent with moderate pulmona ry hypertension. PLAN: To continue present therapy along with aspirin 81 mg daily, insulin as ordered, furosemide 40 p.o. daily, Lipitor 20 mg daily, Lovenox 30 subq daily, Plavix 75 mg daily, Protonix 40 daily, Singul air 10 mg daily, metoprolol succinate which is Toprol-XL 50 mg daily, Xopenex, lisinopril 10 mg daily . We will continue to follow with you. Trae Villegas MD cc: [phone] TT: 08/25/2016 12:17:25 Confirmation # [id number] Dictation # [id number] jn
--- NOTE | 2016-08-25 22:43 | DS ---
HISTORY OF PRESENT ILLNESS: The patient is 71 years old, seen and examined. She still complained of not feeling well, generalized weakness, , shortness of breath and chest pressure on walking. T he patient was admitted with shortness of breath, was found to have ischemic changes on her EKG. Has been on nitrates, nebulizer treatment, IV steroids, still feels weak, tired and easy fatigability an d exertional shortness of breath, so she is being transferred to TCU today. PHYSICAL EXAMINATION: GENERAL: She is awake and alert, communicative. VITAL SIGNS: She is afebrile, pulse 60, respirations 22, blood pressure 150/73. LUNGS: Bilateral fair airflow. Few expiratory rhonchi, scattered posteriorly. HEART: S1, S2 audible. ABDOMEN: Soft, nontender, no rebound, no guarding. NEUROLOGIC: The patient is awake and alert, able to communicate. LABORATORY EXAM: Blood sugar is 152. Blood cultures are negative. ASSESSMENT AND PLAN: 1. Chronic obstructive pulmonary disease exacerbation. 2. Unstable angina. 3. Coronary artery disease, status post multiple angioplasties. 4. Asthmatic bronchitis. 5. Status post cardiac catheterization and multiple angioplasties. 6. History of aortic stenosis, mild mitral regurgitation. PLAN: Currently, patient is on aspirin 81 daily. Will continue to monitor her blood sugar. She is on Lasix 40 daily, Lipitor 20 mg daily. She is on deep veinous thrombosis prophylaxis. She is on Pl avix 75 daily. She is on IV steroid. The patient is being transferred to TCU. I will follow up the re. Ten Sher MD cc: [phone] TT: 08/25/2016 22:42:44 sc
== END 2016-08-25 13:24 | DRG 191 ==
LOC: ED 10:21 → ERH 12:11 → 2RSO 15:06 → 3RNO 08-23 12:23
PROVIDERS: ADMIT Internal Medicine; ATTEND Internal Medicine
PROC: 5A09357 Assistance with Respiratory Ventilation, Less than 24 Consecutive Hours, Continuous Positive Airway Pressure (ICD-10-PCS; principal; 2016-08-24)
DX: J44.1 Chronic obstructive pulmonary disease with (acute) exacerbation (principal); I25.110 Atherosclerotic heart disease of native coronary artery with unstable angina pectoris; J84.9 Interstitial pulmonary disease, unspecified; J44.0 Chronic obstructive pulmonary disease with (acute) lower respiratory infection; J20.9 Acute bronchitis, unspecified; R09.02 Hypoxemia; I27.2 Other secondary pulmonary hypertension; E11.9 Type 2 diabetes mellitus without complications; I08.0 Rheumatic disorders of both mitral and aortic valves; D64.9 Anemia, unspecified; I10 Essential (primary) hypertension; I65.22 Occlusion and stenosis of left carotid artery; E78.5 Hyperlipidemia, unspecified; J45.909 Unspecified asthma, uncomplicated; G25.81 Restless legs syndrome; Z88.0 Allergy status to penicillin; Z87.891 Personal history of nicotine dependence; Z99.81 Dependence on supplemental oxygen; Z95.5 Presence of coronary angioplasty implant and graft; Z79.4 Long term (current) use of insulin

== ENCOUNTER 2016-08-25 13:26 | Inpatient (IN) | payer OTHER, MEDICAID ==
[2016-08-25 15:17] VITALS: BMI 23.6
[2016-08-25] MEDS ORDERED: Pneumococcal 23-Valent Vaccine IM ONE (15:17)
[2016-08-25] MEDS ORDERED: Levalbuterol 0.63 MG/3 ML Inhal Soln UD IH PRN (15:41)
[2016-08-25] MEDS: Insulin Lispro (HUMAlog) HIGH Coverage SC SCH ×2 (17:49→21:49)
[2016-08-25] MEDS: Insulin Lispro (humaLOG) MIX 75/25(10 ml) SC SCH (17:51)
[2016-08-25] MEDS: Potassium & Sodium Phosphate PO SCH (17:52)
[2016-08-25] MEDS: MethylPREDNISolone 40 mg Vial IVP SCH (17:53)
[2016-08-25] MEDS: Levalbuterol 0.63 MG/3 ML Inhal Soln UD IH SCH (20:25)
[2016-08-25] MEDS: Insulin Detemir 100 units/ml Vial (Levemir) SC SCH (21:49)
[2016-08-26] MEDS: Levalbuterol 0.63 MG/3 ML Inhal Soln UD IH SCH ×4 (01:11→21:13)
[2016-08-26] MEDS: Pantoprazole 40 mg EC Tab PO SCH (06:06)
[2016-08-26] MEDS: MethylPREDNISolone 40 mg Vial IVP SCH ×2 (06:06→17:33)
[2016-08-26] MEDS: Enoxaparin 30 mg Syringe SC SCH (06:06)
[2016-08-26] MEDS: Insulin Lispro (HUMAlog) HIGH Coverage SC SCH ×4 (06:44→23:18)
[2016-08-26] MEDS: Insulin Lispro (humaLOG) MIX 75/25(10 ml) SC SCH ×2 (06:45→17:26)
[2016-08-26] MEDS: Metoprolol Succinate 50 mg XL Tab PO SCH (08:20)
[2016-08-26] MEDS ORDERED: Pantoprazole 40 mg EC Tab PO SCH (10:00)
[2016-08-26] MEDS ORDERED: Metoprolol Succinate 50 mg XL Tab PO SCH (10:00)
--- NOTE | 2016-08-26 10:18 | PN ---
DATE: 08/26/2016 The patient was seen and examined at bedside. She is sitting at the edge of her bed. She states her breathing has improved, but she is still short of breath on minimal exertion. She is receiving Solu -Medrol at a dose of 20 mg twice a day, Tiotropium, which is Spiriva once a day, Xopenex inhalations. She is on doxycycline. PHYSICAL EXAMINATION: VITAL SIGNS: Temperature 97.4, pulse 68, respirations 20, pulse oximetry 96 on nasal cannula, blood pressure is 130/60. There are no new labs. HEAD, EARS, NOSE AND THROAT: Atraumatic and normocephalic. NECK: Supple with no jugular vein distensions. CARDIOVASCULAR: S1, S2, no S3, regular. PULMONARY: Diminished breath sounds bilaterally with prolonged expiration and few rhonchi. No wheez ing. GASTROINTESTINAL: Soft, nontender, no organomegaly. SKIN: No pedal edema. NEUROLOGIC: No focal deficits. ASSESSMENT AND PLAN: Exacerbation of severe chronic obstructive pulmonary disease. The patient's co ndition is improving on current regimen. Would continue with oral antibiotics. The steroids can be switched to oral prednisone. She probably will not need doses smaller than 30 mg and doses should be tapered from there. Yossi Granda MD cc: [id number] TT: 08/26/2016 10:17:35 Confirmation # [id number] Dictation # [id number] madiha
[2016-08-26] MEDS: Tiotropium 18 mcg Cap For Inhalation IH SCH (10:19)
[2016-08-26] MEDS: Potassium & Sodium Phosphate PO SCH ×2 (10:19→17:33)
--- NOTE | 2016-08-26 18:48 | HP ---
HISTORY OF PRESENT ILLNESS: The patient is 71 years old, was admitted with increasing cough, congest ion, and weakness. She was found to have abnormal EKG, and was evaluated by mainframe architect, but there was no TX found. Troponins were negative. The patient has been on IV steroid, antibiotic and nebuli zer treatment, doing well. Transferred to TCU for further rehabilitation and monitoring. PAST MEDICAL HISTORY: Is significant for: 1. Hypertension. 2. Coronary artery disease, status post angioplasty. 3. Chronic obstructive pulmonary disease. 4. Ventral hernia, not incarcerated. 5. Insulin-dependent diabetes. 6. Chronic anemia. 7. Peptic ulcer disease. ALLERGIES: SHE IS ALLERGIC TO FISH, IODINE, OXAPROZIN AND PENICILLIN. MEDICATIONS: As per MAR. REVIEW OF SYSTEMS: Significant for generalized weakness, cough, congestion and wheezing and gets eas lance short of breath on minimal walking. PHYSICAL EXAMINATION: VITAL SIGNS: She is afebrile, pulse 60, respirations 20, blood pressure 122/73. LUNGS: Bilateral few expiratory rhonchi. HEART: S1, S2 audible. ABDOMEN: Soft, nontender, no rebound, no guarding. NEUROLOGIC: She is awake and alert, communicative, ambulatory. EXTREMITIES: Bilateral leg, no edema. LABORATORY EXAM: Blood sugar is 122. ASSESSMENT AND PLAN: 1. Chronic obstructive pulmonary disease exacerbation. 2. Abnormal EKG; there is stable angina. 3. Coronary artery disease, status post angioplasty. 4. Hypertension. 5. Hyperlipidemia. 6. Insulin-dependent diabetes. PLAN: The patient is transferred to TCU. Will resume all her medication. Aggressive physical thera py. Continue DVT prophylaxis and GI prophylaxis. Will follow up patient in a.m. Ten Sher MD cc: [phone] TT: 08/26/2016 18:47:52 rufino
--- NOTE | 2016-08-26 19:50 | CON ---
DATE: 08/26/2016 REASON FOR CONSULTATION AND FOLLOWUP: Continuity of the care in the transitional unit care, coronary artery disease. 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 Initial EKG on admission shows T-wave changes, but found the patient had no evidence of acute myocardial infarction; however, there is acute coronary artery syndrome. Troponin s have been flat. PAST MEDICAL HISTORY: Is significant for diabetes, hypertension, hyperlipidemia, history of multiple PTCAs, history of OH, history of COPD, history of home oxygen. PREVIOUS CARDIAC WORKUP: As follows: The patient had a stress test 06/17/2015 that showed anterosept al reversible ischemia with ejection fraction 60%. Following that, the patient had a cardiac cathete rization that revealed nonobstructive coronary artery disease as mentioned below. Medical treatment recommended. The patient had an echocardiography 06/09/2015 that shows ejection fraction of 55%, mild MR, mild TR. Also the patient had a bilateral carotid duplex scan done that shows 60% to 79% left IC A stenosis and right 20% to 39% stenosis. The patient subsequently underwent cardiac catheterization on 12/16/2015 that shows left heart catheterization. Bilateral carotid angiogram as well as right he art catheterization was done. Findings as follows: Left main essentially free of significant diseas e that trifurcates into LAD, circumflex and intermediate. LAD patent stent noted. Circumflex medium caliber vessels. Obtuse marginal 1 and caliber vessels. Obtuse marginal 1 medium caliber vessels e ssentially for significant disease. Ramus intermedius with large caliber vessels, 55% stenosis noted in the ostium. The coronary artery with medium sized vessels, diffuse calcification noted througho ut the vessels without any significant stenosis. Patent stent in the proximal and mid LAD was noted. The right dominant system was noted. . Ejection fraction 50% to 60%. EDP was in the range of 18-20. No gradient across the aortic valve noted. Right heart catheterization revealed RA 7-8, R V 35/7, PA 35/15, mean PA was 22. Pulmonary capillary wedge pressure 8-10 mmHg. Pulmonary vascular resistance 3.5 Harris units. Cardiac output 3.5, cardiac index 2.1. Bilateral carotid angiogram reve aled right common carotid artery essentially free of significant disease. Left has 30% stenosis. MEDICAL TREATMENT RECOMMENDED. The patient had a repeat echo on this admission on 08/22/2016 that aspen wed ejection fraction 55%, normal LV function, trace aortic regurgitation, mild aortic stenosis, mild mitral regurgitation, [id number] tricuspid regurg, and RV systolic pressure of 51. REVIEW OF SYSTEMS: As per HPI. PHYSICAL EXAMINATION: VITAL SIGNS: Temperature afebrile, heart rate 83, blood pressure 122/73. HEENT: PERRLA. Extraocular muscles intact. NECK: Supple. No carotid bruits. No thyromegaly. CHEST: Clear to auscultation. HEART: S1, S2 regular. ABDOMEN: Soft. EXTREMITIES: Clubbing and cyanosis negative. LABORATORY DATA: Blood workup as follows: WBC 8.9, hemoglobin 10.9, hematocrit 34.2, platelet count 249. Chemistry shows sodium 131, potassium 4.9, chloride 89, carbon dioxide 36, anion gap of , BUN 33, creatinine 0.7. No evidence of acute myocardial infarction. No evidence of acute coronary syndrome. Troponin remains flat. IMPRESSION: Acute exacerbation of chronic obstructive pulmonary disease, hypertension, hyperlipidemi a, mitral and tricuspid regurgitation, aortic regurgitation, multiple stents in the heart. Recent ca theterization revealed nonobstructive coronary artery disease, mild valvular aortic stenosis, mild ao rtic regurgitation, pulmonary hypertension, mild aortic stenosis, trace aortic regurgitation, mild mi tral regurgitation, [id number]-zl-[id number] tricuspid with RV systolic pressure of 51. Medical treatment re commended. Will continue aspirin. Continue insulin. Continue isosorbide dinitrate. Continue atorv astatin. Continue DVT prophylaxis. Will follow with you. Thank you, Dr. Sher, for providing me the opportunity in taking care of this patient. Trae Henry MD cc: [id number] TT: 08/26/2016 19:49:38 Confirmation # [id number] Dictation # [id number] rufino
[2016-08-26] MEDS: Insulin Detemir 100 units/ml Vial (Levemir) SC SCH (23:18)
[2016-08-27] MEDS: Levalbuterol 0.63 MG/3 ML Inhal Soln UD IH SCH ×4 (03:36→22:35)
[2016-08-27] MEDS: Pantoprazole 40 mg EC Tab PO SCH (05:31)
[2016-08-27] MEDS: MethylPREDNISolone 40 mg Vial IVP SCH ×2 (05:32→17:44)
[2016-08-27] MEDS: Enoxaparin 30 mg Syringe SC SCH (05:32)
[2016-08-27] MEDS: Insulin Lispro (humaLOG) MIX 75/25(10 ml) SC SCH ×2 (06:35→17:41)
[2016-08-27] MEDS: Insulin Lispro (HUMAlog) HIGH Coverage SC SCH ×4 (06:37→22:14)
[2016-08-27] MEDS: Metoprolol Succinate 50 mg XL Tab PO SCH (08:02)
[2016-08-27] MEDS: Potassium & Sodium Phosphate PO SCH ×2 (10:40→17:42)
[2016-08-27] MEDS: Tiotropium 18 mcg Cap For Inhalation IH SCH (10:41)
--- NOTE | 2016-08-27 12:13 | PN ---
DATE: 08/27/2016 REASON FOR CONSULTATION AND FOLLOWUP: Continuity of care in transitional care unit, coronary artery disease, status post multiple PTCAs. BRIEF CLINICAL HISTORY: A 71-year-old female with a past medical history significant for COPD, diabe mackenzie, hypertension, hyperlipidemia, coronary artery disease, status multiple stents. Complaining of s hortness of breath. T-wave changes. So far, no evidence of acute AL, no evidence of acute cor onary syndrome. The patient is getting rehab in transitional care unit. Denies any chest pain, shor tness of breath, any palpitation. PHYSICAL EXAMINATION: VITAL SIGNS: Temperature afebrile, heart rate 70, blood pressure 124/61. HEENT: PERRLA. Extraocular muscles intact. NECK: Supple. No carotid bruits. No thyromegaly. CHEST: Clear to auscultation. HEART: S1, S2 regular. ABDOMEN: Soft. EXTREMITIES: Clubbing, cyanosis negative. BLOOD WORKUP: Only blood sugar is done 122. IMPRESSION: Chronic obstructive pulmonary disease exacerbation, diabetes, hypertension, hyperlipidem ia, coronary artery disease, status post multiple stents in the past, recent catheterization, nonobst ructive coronary artery disease, mild valvular aortic stenosis, mild aortic regurgitation, pulmonary hypertension, mild aortic stenosis, trace aortic regurgitation, mild mitral regurgitation, mild to mo derate tricuspid regurgitation, right ventricular systolic pressure 51, medical treatment recommended . Continue insulin, continue deep venous thrombosis prophylaxis. Continue aspirin, continue Plavix, co ntinue atorvastatin. Cardiovascular status is stable. Continue rehab. Continue isosorbide mononitr ate. Will follow with you. Thank you, Dr. Sher, for providing us the opportunity in taking care of the patient. Trae Henry MD cc: [id number] TT: 08/27/2016 12:13:05 Confirmation # [id number] Dictation # [id number] en
[2016-08-27] MEDS: Insulin Detemir 100 units/ml Vial (Levemir) SC SCH (21:41)
[2016-08-28] MEDS: Levalbuterol 0.63 MG/3 ML Inhal Soln UD IH SCH ×4 (03:10→19:00)
[2016-08-28] MEDS: Enoxaparin 30 mg Syringe SC SCH (05:31)
[2016-08-28] MEDS: Pantoprazole 40 mg EC Tab PO SCH (05:31)
[2016-08-28] MEDS: MethylPREDNISolone 40 mg Vial IVP SCH (05:32)
[2016-08-28] MEDS: Insulin Lispro (HUMAlog) HIGH Coverage SC SCH ×4 (06:46→21:50)
[2016-08-28] MEDS: Insulin Lispro (humaLOG) MIX 75/25(10 ml) SC SCH ×2 (06:47→17:55)
--- NOTE | 2016-08-28 08:32 | PN ---
DATE: 08/28/2016 SUBJECTIVE: The patient appears comfortable this morning. She is not short of breath at rest. PHYSICAL EXAMINATION: VITAL SIGNS: Temperature is 97.5, pulse 66, respirations 18, blood pressure 124 /54. Oxygen saturation on nasal cannula is 97%. HEENT: Normocephalic, atraumatic. No JVD. CARDIOVASCULAR: Systolic ejection murmur at the lower left sternal border. No S3 gallop. LUNGS: Chronic crackles at the bases. Very minimal/less rhonchi. No wheezing. EXTREMITIES: No clubbing, cyanosis, or edema. Calves are nontender to palpation. GASTROINTESTINAL: Abdomen is soft, nontender, nondistended. Bowel sounds are positive. SKIN: No acute rash. NEUROLOGIC: Limited at the present time. IMPRESSION: 1. Acute bronchitis. 2. Advanced chronic obstructive pulmonary disease -- on home oxygen. 3. Advanced interstitial lung disease. 4. Extensive coronary artery disease. 5. Diabetes mellitus. 6. Mild anemia. PLAN: The patient appears very comfortable this morning. She is not short of breath at rest. She states she is feeling much better overall. On physical exam, her bronchospasm continues to resolve. In addition, there is no significant alveolar-arterial gradient. I will continue with the current nebulizer treatments and change to oral steroids this morning. The patient remains on antibiotic therapy. There are no temperatures noted. Clinical status of the patient is certainly improved -- compared to the initial presentation. However, again, the overall status/prognosis for this patient -- with advanced lung disease -- does remain guarded. I will discuss the above with the attending physician. Randell Becker MD cc: [id number] TT: 08/28/2016 08:31:41 Confirmation # [id number] Dictation # [id number] en MTDD
[2016-08-28] MEDS: Metoprolol Succinate 50 mg XL Tab PO SCH (08:48)
[2016-08-28] MEDS: Potassium & Sodium Phosphate PO SCH ×2 (10:50→18:00)
[2016-08-28] MEDS: Tiotropium 18 mcg Cap For Inhalation IH SCH (11:13)
--- NOTE | 2016-08-28 13:12 | PN ---
DATE: 08/28/2016 REASON FOR CONSULTATION AND FOLLOWUP: Continuity of the care in transitional care unit, coronary art radha disease, status post multiple PTCA. 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 Com plaining of shortness of breath, T-wave changes. So far, no evidence of acute MO. The patient is no w in transitional care unit for the continuity of care. Denies any chest pain, shortness of breath, getting rehab, less short of breath, denies any palpitation. PHYSICAL EXAMINATION: VITAL SIGNS: Temperature afebrile, heart rate , blood pressure 124/54. HEENT: PERRLA. Extraocular muscles intact. NECK: Supple. No carotid bruits. No thyromegaly. CHEST: Clear to auscultation. HEART: S1, S2 regular. ABDOMEN: Soft. EXTREMITIES: Clubbing, cyanosis negative. BLOOD WORKUP: Blood sugar 201. IMPRESSION: Chronic obstructive pulmonary disease exacerbation, coronary artery disease, status post multiple stents in the past, recent catheterization, nonobstructive coronary artery disease, patent stent, mild valvular aortic , mild valvular aortic regurgitation, mild pulmonary hypertension, m ild aortic stenosis, mild mitral regurgitation, mild to moderate tricuspid regurgitation, right ventr icular systolic pressure 51, medical treatment recommended. RECOMMENDATION: Continue deep venous thrombosis prophylaxis. Continue aspirin, continue Plavix, con tinue atorvastatin. Cardiovascular status is stable. Continue rehabilitation. Discussed with the p atient, discussed with the patient's family. The patient is concerned about the heart, but explained the patient's condition. Trae Henry MD cc: [id number] TT: 08/28/2016 13:12:04 Confirmation # [id number] Dictation # [id number] en
[2016-08-28] MEDS: Insulin Detemir 100 units/ml Vial (Levemir) SC SCH (21:52)
[2016-08-29] MEDS: Levalbuterol 0.63 MG/3 ML Inhal Soln UD IH SCH ×4 (02:19→20:34)
[2016-08-29] MEDS: Enoxaparin 30 mg Syringe SC SCH (05:35)
[2016-08-29] MEDS: Pantoprazole 40 mg EC Tab PO SCH (05:35)
[2016-08-29] MEDS: guaiFENesin 100 mg/5 ml Syrup UD PO PRN ×3 (06:04→18:11)
[2016-08-29] MEDS: Budesonide 0.5 mg/2 ml Inhal Susp UD IH SCH ×2 (07:49→20:33)
--- NOTE | 2016-08-29 07:50 | PN ---
DATE: 08/29/2016 SUBJECTIVE: The patient appears comfortable this morning. She is not short of breath at rest. PHYSICAL EXAMINATION: VITAL SIGNS: Temperature is 97.8, pulse 79, respirations 18, blood pressure 130 /58. Oxygen saturation on nasal cannula is 97%. HEENT: Normocephalic, atraumatic. No JVD. CARDIOVASCULAR: Systolic ejection murmur at the lower left sternal border. No S3 gallop. LUNGS: Chronic crackles at the bases. Minimal rhonchi. A few expiratory wheezes. EXTREMITIES: No clubbing, cyanosis, or edema. Calves are nontender to palpation. GASTROINTESTINAL: Abdomen is soft, nontender, nondistended. Bowel sounds are positive. SKIN: No acute rash. NEUROLOGIC: Limited at the present time. IMPRESSION: 1. Acute bronchitis. 2. Advanced chronic obstructive pulmonary disease -- on home oxygen. 3. Advanced interstitial lung disease. 4. Extensive coronary artery disease. 5. Diabetes mellitus. 6. Mild anemia. PLAN: The patient appears comfortable this morning. She is not short of breath at rest. She states she is feeling better overall. On physical exam, mild bronchospasm persists. However, there is no significant alveolar-arterial gradient. I will continue with the current nebulizer treatments and oral steroids (changed yesterday) for now. The patient also remains on antibiotic therapy. There are no temperatures noted. Clinical status of the patient is significantly improved -- compared to the initial presentation. However, again , the overall status/prognosis of this elderly patient -- with advanced lung disease -- does remain very guarded. I will discuss the above with the attending physician. Randell Becker MD cc: [id number] TT: 08/29/2016 07:49:47 Confirmation # [id number] Dictation # [id number] en MTDD
[2016-08-29] MEDS: Insulin Lispro (humaLOG) MIX 75/25(10 ml) SC SCH ×2 (08:08→18:09)
[2016-08-29] MEDS: Insulin Lispro (HUMAlog) HIGH Coverage SC SCH ×4 (08:08→21:24)
[2016-08-29] MEDS: Metoprolol Succinate 50 mg XL Tab PO SCH (08:17)
[2016-08-29] MEDS: Potassium & Sodium Phosphate PO SCH ×2 (10:56→18:10)
[2016-08-29] MEDS: Tiotropium 18 mcg Cap For Inhalation IH SCH (10:57)
--- NOTE | 2016-08-29 12:49 | PN ---
DATE: 08/29/2016 REASON FOR CONSULTATION AND FOLLOWUP: Continuity of care in transitional care unit, coronary artery disease, status post multiple PTCAs, admitted with acute exacerbation of COPD. BRIEF CLINICAL HISTORY: This is a 71-year-old female with past medical history significant for COPD, diabetes, hypertension, hyperlipidemia, coronary artery disease, status post multiple stents, admitt ed with shortness of breath. EKG showed some ____ changes. The patient initially admitted to the [facility] where the patient was ruled out for myocardial infarction, and now patient for continuity of care is in transitional care unit. The patient had recently cardiac catheterization, nonobstructive betsy nary artery disease with patent stent. PHYSICAL EXAMINATION: VITAL SIGNS: Temperature afebrile, heart rate 80, blood pressure 113/62. HEENT: PERRLA. Extraocular muscles intact. NECK: Supple. No carotid bruits or thyromegaly. CHEST: Clear to auscultation. HEART: S1, S2 regular. ABDOMEN: Soft. EXTREMITIES: Clubbing and cyanosis negative. BLOOD WORKUP: Blood is not available in TCU. IMPRESSION: Acute exacerbation of chronic obstructive pulmonary disease, coronary artery disease sta tus post multiple stents, history of recent cardiac catheterization that showed nonobstructive zamarripa ry artery disease, patent previous stent on 12/16/2015. The patient's recent repeat echocardiography was done dated 08/22/2016 that showed ejection fraction 50%, normal left ventricular segmental wall motion, trace aortic regurgitation, mild valvular aortic stenosis, mild to moderate tricuspid regurgi tation, right ventricular systolic pressure 51, mild mitral regurgitation. RECOMMENDATIONS: Continue deep vein thrombosis ____, continue aspirin, continue Plavix, continue tutu rvastatin. Cardiac status is stable. Continue rehab. Will follow with you. Thank you, Dr. Sher, for providing this opportunity in taking care of the patient. We will follow with you. Trae Henry MD cc: [id number] TT: 08/29/2016 12:48:20 Confirmation # [id number] Dictation # [id number] mn
--- NOTE | 2016-08-29 13:58 | PN ---
DATE: 08/29/2016 The patient is a 71-year-old, seen and examined sitting in chair complaining of increasing shortness of breath. No nausea or vomiting. No diarrhea. PHYSICAL EXAMINATION: VITAL SIGNS: She is afebrile, pulse 80, respirations 18, blood pressure 113/62. LUNGS: Bilateral fair airflow, no rhonchi or crackle. HEART: S1, S2 audible. ABDOMEN: Soft, nontender, no rebound, no guarding. NEUROLOGIC: She is awake and alert, communicative. LABORATORY: Blood sugar is 150. ASSESSMENT: 1. ____, status post chronic obstructive pulmonary disease exacerbation. 2. Terminal chronic obstructive pulmonary disease. 3. Coronary artery disease, status post multiple angioplasties. 4. Deconditioning. 5. Ventral hernia, not incarcerated. 6. Insulin-dependent diabetes. PLAN: Will continue patient on current medical treatment. She is scheduled to be discharged on 05/2016. Ten Sher MD cc: [id number] TT: 08/29/2016 12:37:32 Confirmation # [id number] Dictation # [id number] desire
[2016-08-29] MEDS: Insulin Detemir 100 units/ml Vial (Levemir) SC SCH (22:03)
[2016-08-30] MEDS: Levalbuterol 0.63 MG/3 ML Inhal Soln UD IH SCH ×4 (02:09→20:22)
[2016-08-30] MEDS: Enoxaparin 30 mg Syringe SC SCH (05:47)
[2016-08-30] MEDS: Pantoprazole 40 mg EC Tab PO SCH (05:47)
[2016-08-30] MEDS: guaiFENesin 100 mg/5 ml Syrup UD PO PRN ×3 (05:50→19:39)
[2016-08-30] MEDS: Insulin Lispro (HUMAlog) HIGH Coverage SC SCH ×4 (06:46→22:07)
[2016-08-30] MEDS: Insulin Lispro (humaLOG) MIX 75/25(10 ml) SC SCH ×2 (06:47→17:51)
[2016-08-30] MEDS: Budesonide 0.5 mg/2 ml Inhal Susp UD IH SCH ×2 (07:21→20:22)
--- NOTE | 2016-08-30 08:23 | PN ---
DATE: 08/30/2016 SUBJECTIVE: The patient appears comfortable this morning. She is not short of breath at rest. PHYSICAL EXAMINATION: VITAL SIGNS: Temperature is 99.1, pulse 79, respirations 18/20, blood pressure 117/52. Oxygen saturation on nasal cannula is 98%. HEENT: Normocephalic, atraumatic. No JVD. CARDIOVASCULAR: Systolic ejection murmur at the lower left sternal border. No S3 gallop. LUNGS: Chronic crackles at the bases. Much less rhonchi. Less wheezing. EXTREMITIES: No clubbing, cyanosis, or edema. Calves are nontender to palpation. GASTROINTESTINAL: Abdomen is soft, nontender, nondistended. Bowel sounds are positive. SKIN: No acute rash. NEUROLOGIC: Limited at the present time. IMPRESSION: 1. Acute bronchitis. 2. Advanced chronic obstructive pulmonary disease -- on home oxygen. 3. Advanced interstitial lung disease. 4. Extensive coronary artery disease. 5. Diabetes mellitus. 6. Mild anemia. PLAN: The patient appears very comfortable this morning. She is not short of breath at rest. She states she is feeling much better overall. On physical exam, her bronchospasm continues to resolve. In addition, the alveolar- arterial gradient also continues to resolve. Oxygen saturation on nasal cannula is now 98%. I will continue with the current nebulizer treatments and current oral steroids for now. The patient also remains on antibiotic therapy. There are no temperatures noted. Clinical status of the patient is significantly improved -- compared to the initial presentation. However, again , the overall status/prognosis for this patient -- with advanced lung disease - - does remain guarded. I will discuss the above with the attending physician. Randell Becker MD cc: [id number] TT: 08/30/2016 08:21:51 Confirmation # [id number] Dictation # [id number] en MTDD
[2016-08-30] MEDS: Metoprolol Succinate 50 mg XL Tab PO SCH (08:25)
[2016-08-30] MEDS: Potassium & Sodium Phosphate PO SCH ×2 (09:29→18:29)
[2016-08-30] MEDS: Tiotropium 18 mcg Cap For Inhalation IH SCH (09:30)
--- NOTE | 2016-08-30 11:35 | PN ---
DATE: 08/30/2016 The patient in room 314, bed 1. REASON FOR CONSULTATION AND FOLLOWUP: Coronary artery disease, multiple PTCAs, admitted with acute e xacerbation of COPD. HISTORY OF PRESENT ILLNESS: A 71-year-old female who is known to have COPD, diabetes, hypertension, hyperlipidemia, coronary artery disease, status multiple stents, admitted with shortness of breath on the medical floor. The patient treated medically and improved, and now she is in transitional care unit for deconditioning and physical therapy. Denies any chest pain. Her shortness of breath is als o improving. The patient's recent cardiac catheterization showed nonobstructive coronary artery dise ase with patent stents. PHYSICAL EXAMINATION: VITAL SIGNS: Blood pressure ____/61, respirations 20, pulse 73, temperature 99.1. HEAD: Normocephalic. EYES: Pupils normal. Conjunctivae are normal. NECK: JVP low. Carotid equal. THORAX: AP diameter normal. LUNGS: A few expiratory wheezing. CARDIOVASCULAR: S1, S2. ABDOMEN: Soft. No tenderness, no organomegaly. EXTREMITIES: No clubbing, no cyanosis. LABORATORY DATA: Random sugar 88. Other labs were reported in our previous notes on the medical fl oor. DIAGNOSES: Acute exacerbation of chronic obstructive pulmonary disease; coronary artery disease, sta tus post multiple stents; history of recent cardiac catheterization that showed nonobstructive zamarripa ry artery disease, patent stents. Catheterization was done on 12/16/2015. Echocardiogram on 017 showed ejection fraction of 50%, trace aortic regurgitation, mild valvular aortic stenosis, mild to moderate tricuspid regurgitation, right ventricular systolic pressure of 51 consistent with modera te pulmonary hypertension, mild mitral regurgitation. PLAN: The patient will continue to get physical therapy. Will continue Doryx 100 mg p.o. q. 12 hour s, aspirin 81 mg p.o. daily, insulin as ordered, isosorbide mono 60 daily, Lovenox 30 mg subQ daily, Plavix 75 daily, prednisone 30 mg p.o. daily, Protonix 40 daily, Toprol-XL 50 mg daily, Spiriva 18 mc g IH daily. Will follow with you. Trae Villegas MD cc: [id number] TT: 08/30/2016 11:34:55 Confirmation # [id number] Dictation # [id number] mn
[2016-08-30 16:48] VITALS: RESP 20
--- NOTE | 2016-08-30 18:16 | PN ---
DATE: 08/30/2016 SUBJECTIVE: The patient is 71 years old, seen and examined. Still complaining of scanty cough with shortness of breath on minimal exertion. Denies any nausea or vomiting. Did have a drop in her bloo d sugar last night. PHYSICAL EXAMINATION: VITAL SIGNS: She is afebrile, pulse 76, respirations 18, blood pressure 136/56. LUNGS: Bilateral fair airflow, no rhonchi or crackle. HEART: S1, S2 audible. ABDOMEN: Soft, nontender, no rebound, no guarding. NEUROLOGIC: The patient is awake and alert, able to communicate. LABORATORY DATA: Her blood sugar this afternoon is 88 only, in the middle of the night it did go tanesha n to 25. ASSESSMENT AND PLAN 1. Chronic obstructive pulmonary disease exacerbation. 2. Stable angina. 3. Coronary artery disease, status post multiple angioplasties. 4. Asthmatic bronchitis. 5. Exertional dyspnea. 6. Incarcerated ventral hernia. PLAN: Will continue the patient on current medication, will cut down her insulin, Levemir to 5 units at nighttime, instead of 15 and cut down her evening dose of insulin also and monitor the patient's condition closely and will follow up in a.m. Ten Sher MD cc: [id number] TT: 08/30/2016 18:16:08 Confirmation # [id number] Dictation # [id number] rufino
[2016-08-30] MEDS ORDERED: Insulin Detemir 100 units/ml Vial (Levemir) SC SCH (22:00)
[2016-08-31] MEDS: Levalbuterol 0.63 MG/3 ML Inhal Soln UD IH SCH ×4 (01:17→20:50)
[2016-08-31] MEDS: Enoxaparin 30 mg Syringe SC SCH (05:37)
[2016-08-31] MEDS: Pantoprazole 40 mg EC Tab PO SCH (05:37)
[2016-08-31] MEDS: guaiFENesin 100 mg/5 ml Syrup UD PO PRN ×3 (05:48→21:14)
--- NOTE | 2016-08-31 07:14 | PN ---
DATE: 08/31/2016 SUBJECTIVE: The patient appears comfortable this morning. She is not short of breath at rest. PHYSICAL EXAMINATION: VITAL SIGNS: Temperature 98.3, pulse 79, respirations 18-20, blood pressure 139 /69. Oxygen saturation on nasal cannula is 96%. HEENT: Normocephalic, atraumatic. No JVD. CARDIOVASCULAR: Systolic ejection murmur at the lower left sternal border. No S3 gallop. LUNGS: Chronic crackles at the bases. Very minimal rhonchi. A few expiratory wheezes. EXTREMITIES: No clubbing, cyanosis, or edema. Calves are nontender to palpation. GASTROINTESTINAL: Abdomen is soft, nontender, nondistended. Bowel sounds are positive. SKIN: No acute rash. NEUROLOGIC: Limited at the present time. IMPRESSION: 1. Acute bronchitis. 2. Advanced chronic obstructive pulmonary disease - on home oxygen. 3. Advanced interstitial lung disease. 4. Extensive coronary artery disease. 5. Diabetes mellitus. 6. Mild anemia. PLAN: The patient appears very comfortable this morning. She is not short of breath at rest. She states she is feeling much better overall. On physical exam, her bronchospasm continues to slowly resolve. In addition, there is no significant alveolar arterial gradient. I will continue with the current nebulizer treatments and try decreasing the oral steroids this morning. The patient remains on antibiotic therapy. There are no temperatures noted. Clinical status of the patient is significantly improved - compared to her initial presentation. However, again, the overall status/prognosis for this elderly patient - with advanced lung disease and extensive coronary artery disease - remains very guarded. I will discuss the above with the attending physician. Randell Becker MD cc: [id number] TT: 08/31/2016 07:13:35 Confirmation # [id number] Dictation # [id number] desire BOBBY
[2016-08-31] MEDS: Budesonide 0.5 mg/2 ml Inhal Susp UD IH SCH ×2 (07:15→20:50)
[2016-08-31] MEDS: Insulin Lispro (HUMAlog) HIGH Coverage SC SCH (07:52)
[2016-08-31] MEDS: Insulin Lispro (humaLOG) MIX 75/25(10 ml) SC SCH (07:54)
[2016-08-31] MEDS: Metoprolol Succinate 50 mg XL Tab PO SCH (07:59)
[2016-08-31] MEDS: Potassium & Sodium Phosphate PO SCH ×2 (10:02→17:17)
[2016-08-31] MEDS: Tiotropium 18 mcg Cap For Inhalation IH SCH (10:03)
--- NOTE | 2016-08-31 11:49 | PN ---
DATE: 08/31/2016 The patient in room 314, bed 1. REASON FOR CONSULTATION AND FOLLOWUP: Coronary artery disease, multiple PTCAs, admitted with acute e xacerbation of COPD. HISTORY OF PRESENT ILLNESS: A 71-year-old female with known COPD, diabetes, hypertension, hyperlipid emia, coronary artery disease, multiple stents, admitted with shortness of breath and was found to morrell ve exacerbation of COPD. The patient treated medically. She improved. Now she is transferred to [facility] care unit for deconditioning and physical therapy. The patient denies chest pain or palpi tations. She gets shortness of breath on exertion. PHYSICAL EXAMINATION: VITAL SIGNS: Blood pressure 137/81, respirations 20, pulse 85, temperature 98.3. HEAD: Normocephalic. EYES: Pupils normal. Conjunctivae are normal. NECK: JVP low. Carotid equal. THORAX: AP diameter normal. LUNGS: Expiratory wheezing has significantly improved. CARDIOVASCULAR: S1, S2. ABDOMEN: Soft. No tenderness, no organomegaly. Bowel sounds normal. EXTREMITIES: No clubbing, no cyanosis. LABORATORY DATA: Random sugar on 08/30/2016 was 338. Earlier sugar on the same day was 88. Other l abs were done on medical floor and they were reported in our previous notes. DIAGNOSES: Acute exacerbation of chronic obstructive pulmonary disease, coronary artery disease stat us post multiple stents, history of recent cardiac catheterization that showed nonobstructive coronar y artery disease and patent stents on 12/16/2015. echocardiogram was done on 08/22/2016 and findings have been mentioned in our previous notes. PLAN: The patient's shortness of breath is improving. The patient will continue to have physical th erapy. The patient's insulin has been adjusted by Dr. Sher because of low sugar. The patient is on aspirin 81 mg daily, isosorbide 60, Lipitor 20, Lovenox 30 subq daily, Plavix 75 mg daily, prednis one 20 mg daily, Protonix 40 p.o. daily, Toprol-XL 50 p.o. daily, Xopenex nebulizer therapy. Will co ntinue present therapy. Will follow with you. Trae Villegas MD cc: [phone] TT: 08/31/2016 11:49:21 Confirmation # [id number] Dictation # [id number] mn
[2016-08-31] MEDS ORDERED: Insulin Detemir 100 units/ml Vial (Levemir) SC SCH (12:13)
--- NOTE | 2016-08-31 13:54 | PN ---
DATE: 08/31/2016 The patient is a 71-year-old, seen and examined, lying in bed, seemed to be comfortable. Blood sugar dropped to 20s this morning. Since her steroid is being tapered down, her sugar has been going down . I will adjust that later on. PHYSICAL EXAMINATION: GENERAL: Today, she is comfortable, complained of shortness of breath on minimal exertion. VITAL SIGNS: She is afebrile, pulse 80, respirations 20, blood pressure 135/80. LUNGS: Bilateral diffusely decreased breath sounds. HEART: S1, S2 audible. ABDOMEN: Soft, nontender, no rebound, no guarding. NEUROLOGIC: She is awake and alert, communicative, ambulatory. ASSESSMENT: 1. Chronic obstructive pulmonary disease exacerbation. 2. Coronary artery disease, status post multiple angioplasties. 3. Hypertension. 4. Hyperlipidemia. 5. Insulin-dependent diabetes. PLAN: We will discontinue her standing order for before breakfast and dinner. We will continue her on Levemir 10 units at bedtime and just give her insulin according to sliding scale. I will continue nebulizer treatment and antibiotic. Discharge plan for Sunday in place and we will reevaluate pat ient in a.m. Ten Sher MD cc: [phone] TT: 08/31/2016 13:53:40 Confirmation # [id number] Dictation # [id number] en
[2016-08-31] MEDS ORDERED: Insulin Reg-LOW-Coverage SC SCH (16:30)
[2016-08-31] MEDS ORDERED: Insulin Regular 1 UNITS/0.01 ML ML SC SCH (16:30)
[2016-08-31] MEDS: Insulin Reg-LOW-Coverage SC SCH ×2 (17:16→22:00)
[2016-09-01] MEDS: Levalbuterol 0.63 MG/3 ML Inhal Soln UD IH SCH ×3 (02:00→13:23)
[2016-09-01] MEDS: Enoxaparin 30 mg Syringe SC SCH (05:25)
[2016-09-01] MEDS: guaiFENesin 100 mg/5 ml Syrup UD PO PRN (05:27)
[2016-09-01] MEDS: Pantoprazole 40 mg EC Tab PO SCH (05:43)
[2016-09-01 06:06] VITALS: TEMP 98.1; O2SAT 100
[2016-09-01] MEDS: Insulin Reg-LOW-Coverage SC SCH ×2 (06:40→12:21)
[2016-09-01] MEDS: Budesonide 0.5 mg/2 ml Inhal Susp UD IH SCH (07:42)
[2016-09-01] MEDS: Metoprolol Succinate 50 mg XL Tab PO SCH (08:00)
--- NOTE | 2016-09-01 08:22 | PN ---
DATE: 09/01/2016 SUBJECTIVE: The patient appears very comfortable at rest. She is not short of breath. PHYSICAL EXAMINATION: VITAL SIGNS: Temperature is 98.1, pulse 79, respirations 18/20, blood pressure 136/70. Oxygen saturation on nasal cannula is 100%. HEENT: Normocephalic, atraumatic. No JVD. CARDIOVASCULAR: Systolic ejection murmur at the lower left sternal border. No S3 gallop. LUNGS: Chronic crackles at the bases. No rhonchi or wheezing this morning. EXTREMITIES: No clubbing, cyanosis, or edema. Calves are nontender to palpation. GASTROINTESTINAL: Abdomen is soft, nontender, nondistended. Bowel sounds are positive. SKIN: No acute rash. NEUROLOGIC: Limited at the present time. IMPRESSION: 1. Acute bronchitis. 2. Advanced chronic obstructive pulmonary disease - on home oxygen. 3. Advanced interstitial lung disease. 4. Extensive coronary artery disease. 5. Diabetes mellitus. 6. Mild anemia. PLAN: The patient appears very comfortable this morning. She is not short of breath at rest. She states she is feeling much better overall. On physical exam, her bronchospasm continues to resolve. In addition, the alveolar arterial gradient also continues to resolve. Oxygen saturation on nasal cannula is now 100%. I will continue with the current nebulizer treatments and current oral steroids (decreased yesterday) for now. The patient is significantly improved - compared to her initial presentation. However, her overall status/prognosis remains very guarded - as she does continue to have advanced lung disease and heart disease. The patient will be discharged either today or tomorrow home. She is advised to follow up with Dr. Chamberlain in the office. She fully agrees. Randell Becker MD cc: [phone] TT: 09/01/2016 08:22:16 Confirmation # [id number] Dictation # [id number] desire BOBBY
[2016-09-01] MEDS: Potassium & Sodium Phosphate PO SCH (10:37)
[2016-09-01] MEDS: Tiotropium 18 mcg Cap For Inhalation IH SCH (10:38)
[2016-09-01 10:43] VITALS: BP 144/74; PULSE 91
--- NOTE | 2016-09-01 12:07 | PN ---
DATE: 09/01/2016 LOCATION: The patient in room 314, bed 1. REASON FOR CONSULTATION AND FOLLOWUP: Coronary artery disease, multiple PTCAs, admitted with acute e xacerbation of COPD. HISTORY OF PRESENT ILLNESS: A 71-year-old female with known case of COPD, diabetes, hypertension, hy perlipidemia, coronary artery disease and multiple stents, admitted with shortness of breath and was found to have exacerbation of COPD. The patient after treatment on the medical floor, improved and w as admitted to transitional care unit for deconditioning physical therapy. The patient denies any ch est pain. Her breathing is also getting better. Denies any palpitation. PHYSICAL EXAMINATION: VITAL SIGNS: Blood pressure is 144/74, earlier pressure was 136/70, respirations 20, pulse 79, tempe rature 98.1. HEENT: Head is normocephalic. Pupils normal, conjunctivae, normal. Nose and throat normal. NECK: JVP low. Carotid equal. THORAX: AP diameter normal. LUNGS: No significant rales or wheezing. Expiratory wheezing has improved as compared to before. S 1, S2. ABDOMEN: Soft, nontender, no organomegaly. Bowel sounds normal. EXTREMITIES: No clubbing, no cyanosis. LABORATORY DATA: Glucose 91. Other labs reported over previous notes. DIAGNOSES: Acute exacerbation of chronic obstructive pulmonary disease, coronary artery disease, sta tus post multiple stents, history of recent cardiac catheterization on 12/16/2015 that showed nonobst ructive coronary artery disease, patent stents. Patient had echo done on, 08/22/2016, which findings were mentioned in previous notes. PLAN: Continue physical therapy for deconditioning. The patient will continue aspirin 81 daily, iso sorbide mono 60 daily, Lipitor 20 daily, insulin as ordered, Lovenox 30 mg subQ daily, Plavix 75 mg daily, prednisone 20 mg p.o. daily, Protonix 40 daily, lisinopril 30 p.o. daily, Xopenex and nebulize r therapy. We will continue present therapy. We will follow with you. Trae Villegas MD cc: [phone] TT: 09/01/2016 12:06:29 Confirmation # [id number] Dictation # [id number] jn
--- NOTE | 2016-09-01 14:46 | DS ---
The patient is a 71-year-old, seen and examined, was admitted because of increasing cough and congest ion, did not have any chest pain; however, she had abnormal EKG. She was evaluated by jasmine [facility] of [facility]. The patient was given IV steroids, IV antibiotic and nebulizer treatments, star deanna to improve, sent to TCU for rehab, doing well. PHYSICAL EXAMINATION: GENERAL: She is awake and alert, communicative. VITAL SIGNS: She is afebrile, pulse 91, respirations 20, blood pressure 144/71. LUNGS: Bilateral good airflow, no rhonchi or crackle. HEART: S1, S2 audible. ABDOMEN: Soft, nontender, no rebound, no guarding. NEUROLOGIC: The patient is awake and alert, communicative and ambulatory. Has exertional dyspnea. ASSESSMENT: 1. Chronic obstructive pulmonary disease exacerbation. 2. Coronary artery disease, status post multiple angioplasties. 3. Hypertension. 4. Hyperlipidemia. 5. Insulin-dependent diabetes. 6. Deconditioning and difficulty walking. 7. Ventral hernia, not incarcerated. PLAN: The patient will be discharged home today. She will resume her medication, all the medication s including Requip, Spiriva, Mysoline, Protonix, Singulair, metoprolol, lisinopril, isosorbide, Levem ir 25 at bedtime and Plavix 75 daily, atorvastatin 20 mg daily, aspirin 81 daily and she was given pr ednisone 20 mg daily for 3 days, then 10 mg for 5 days. She will follow with Dr. Sherman. Ten Sher MD cc: [phone] TT: 09/01/2016 14:45:15 tn
== END 2016-09-01 13:54 | disposition home or self-care (01) | DRG 556 ==
LOC: TRCU 13:26
PROVIDERS: ADMIT Internal Medicine; ATTEND Internal Medicine
PROC: F07Z9FZ Gait Training/Functional Ambulation Treatment using Assistive, Adaptive, Supportive or Protective Equipment (ICD-10-PCS; principal; 2016-08-27)
PROC: F07L6YZ Therapeutic Exercise Treatment of Musculoskeletal System - Lower Back / Lower Extremity using Other Equipment (ICD-10-PCS; 2016-08-27)
PROC: F08Z1ZZ Dressing Techniques Treatment (ICD-10-PCS; 2016-08-31)
DX: R26.2 Difficulty in walking, not elsewhere classified (principal); J44.1 Chronic obstructive pulmonary disease with (acute) exacerbation; J84.9 Interstitial pulmonary disease, unspecified; K43.6 Other and unspecified ventral hernia with obstruction, without gangrene; J44.0 Chronic obstructive pulmonary disease with (acute) lower respiratory infection; J20.9 Acute bronchitis, unspecified; I27.2 Other secondary pulmonary hypertension; I08.3 Combined rheumatic disorders of mitral, aortic and tricuspid valves; I25.118 Atherosclerotic heart disease of native coronary artery with other forms of angina pectoris; E11.9 Type 2 diabetes mellitus without complications; J45.909 Unspecified asthma, uncomplicated; D64.9 Anemia, unspecified; E78.5 Hyperlipidemia, unspecified; I10 Essential (primary) hypertension; Z99.81 Dependence on supplemental oxygen; Z79.4 Long term (current) use of insulin; Z87.11 Personal history of peptic ulcer disease; Z95.5 Presence of coronary angioplasty implant and graft; I25.2 Old myocardial infarction

== ENCOUNTER 2016-12-22 14:04 | Inpatient (IN) | payer MEDICAID, MEDICARE, OTHER ==
[2016-12-22 14:08] VITALS: BMI 24.0
--- NOTE | 2016-12-22 14:30 | ED PDOC ---
Arrival/HPI - General Chief Complaint: Shortness Of Breath Time Seen by Provider: 12/22/16 14:17 Historian: Patient, Family (daughter) - History of Present Illness Narrative History of Present Illness (Text): 12/22/16 Mandy Miranda is a 71 year old female, whose past medical history includes COPD , diabetes, hypertension, CAD with 9 stents, presents to the emergency department complaining of progressively worsening shortness of breath for the past week and a half. She also notes having bilateral leg swelling since this morning. Patient denies any pleuritic chest pain, edema, fever, chills, nausea, vomiting, diarrhea, abdominal pain or any other complaints. Patient notes she has a nebulizer at home. Reports intermittent coughing and sputum. PMD: Dr. Sherman and Dr. Sher Time/Duration: > week (1 week and a half) Activities at Onset: Light Context: Home Associated Symptoms (Text): cough, sputum, leg swelling Past Medical History - Provider Review Nursing Documentation Reviewed: Yes - Infectious Disease Hx of Infectious Diseases: None - Tetanus Immunization Tetanus Immunization: Unknown - Reproductive Menopause: Yes - Cardiac Hx Cardiac Disorders: Yes (CAD) - Pulmonary Hx Chronic Obstructive Pulmonary Disease (COPD): Yes - Neurological HX Cerebrovascular Accident: No - HEENT Hx HEENT Disorder: Yes Hx Cataracts: Yes - Renal Hx Renal Failure: Yes - Endocrine/Metabolic Hx Diabetes Mellitus Type 2: Yes - Hematological/Oncological Hx Hepatitis B: Yes - Integumentary Hx Dermatological Disorder: Yes - Musculoskeletal/Rheumatological Hx Falls: Yes - Gastrointestinal Hx Gastrointestinal Disorders: Yes (VENTRAL HERNIA) - Genitourinary/Gynecological Hx Genitourinary Disorders: No - Psychiatric Hx Substance Use: No - Surgical History Hx Coronary Stent: Yes - Anesthesia Hx Anesthesia Reactions: No Hx Malignant Hyperthermia: No - Suicidal Assessment Feels Threatened In Home Enviroment: No Family/Social History - Physician Review Nursing Documentation Reviewed: Yes Family/Social History: Unknown Family HX Smoking Status: Former Smoker Hx Alcohol Use: No Hx Substance Use: No Hx Substance Use Treatment: No Allergies/Home Meds Allergies/Adverse Reactions: Allergies FISH Allergy (Severe, Verified 08/25/16 14:20) THROAT SWELLING iodine Allergy (Verified 08/25/16 14:20) RASH oxaprozin [From Daypro] Allergy (Verified 08/25/16 14:20) RASH Penicillins Allergy (Verified 08/25/16 14:20) ANAPHYLAXIS Home Medications: Home Meds Medication Instructions Recorded Confirmed Furosemide [Lasix] 1 tab PO DAILY 05/29/16 12/22/16 Primidone [Mysoline] 50 mg PO HS 07/02/16 12/22/16 Albuterol Sulfate [Proair Hfa] 0.09 mg IH DAILY 08/22/16 12/22/16 Allopurinol [Zyloprim] 300 mg PO DAILY 12/22/16 12/22/16 Fenofibrate [Tricor] 145 mg PO DAILY 12/22/16 12/22/16 Metoprolol Succinate [Toprol XL] 50 mg PO DAILY 12/22/16 12/22/16 Review of Systems - Review of Systems Constitutional: absent: Fevers Respiratory: SOB, Cough, Sputum Cardiovascular: absent: Chest Pain Gastrointestinal: absent: Abdominal Pain, Vomiting Genitourinary Female: absent: Dysuria Neurological: absent: Headache Physical Exam Vital Signs Reviewed: Yes Vital Signs Temp Pulse Resp BP Pulse Ox 12/22/16 15:54 99 H 15 147/64 95 12/22/16 14:59 139/58 L 12/22/16 14:24 18 95 12/22/16 14:05 98.3 F 114 H 22 131/55 L 96 Temperature: Afebrile Blood Pressure: Hypotensive Pulse: Tachycardic Respiratory Rate: Normal Appearance: Positive for: Well-Appearing, Non-Toxic, Comfortable Pain Distress: None Mental Status: Positive for: Alert and Oriented X 3 - Systems Exam Head: Present: Atraumatic, Normocephalic Pupils: Present: PERRL Extroacular Muscles: Present: EOMI Conjunctiva: Present: Normal Mouth: Present: Moist Mucous Membranes Neck: Present: Normal Range of Motion Respiratory/Chest: Present: Wheezes (bilateral), Decreased Breath Sounds, Retracting (+2 retraction). No: Accessory Muscle Use Cardiovascular: Present: Regular Rate and Rhythm, Normal S1, S2. No: Murmurs Abdomen: Present: Normal Bowel Sounds. No: Tenderness, Distention, Peritoneal Signs Back: Present: Normal Inspection Upper Extremity: Present: Normal Inspection. No: Cyanosis, Edema Lower Extremity: Present: Edema (+1), Swelling Neurological: Present: GCS=15, CN II-XII Intact, Speech Normal Skin: Present: Warm, Dry, Normal Color. No: Rashes Psychiatric: Present: Alert, Oriented x 3, Normal Insight, Normal Concentration Medical Decision Making ED Course and Treatment: 12/22/16 Impression: 71 year old female with bilateral wheezing, decreased respiratory, and +2 retraction, complaining of shortness of breath. Differential Diagnosis included but are not limited to: COPD exacerbation Plan: -- EKG -- Chest X-ray -- Labs -- Duoneb, Lasix, and Solumedrol -- Reassess and disposition Progress Notes: EKG: Ordered, reviewed, and independently interpreted the EKG. Rate : 87 BPM Rhythm : NSR Interpretation : Q waves anterior leads. no changes from previous EKG Comparison : 07/02/2016 12/22/16 16:28 CXR negative for infiltrate. Patient's VBG with elevated pCO2 in the 80's. Patient placed on BiPap at 10/5. She is improving but still having symptoms. Labs reviewed. Troponin negative. I discussed this case with Dr. Sher who will admit this patient to her service. Consult Dr. Rosita price. We will place her in Telemetry. - Critical Care Critical Care Minutes: 30 minutes - Lab Interpretations Lab Results: 12/22/16 14:50 12/22/16 15:20 Lab Results 12/22/16 15:20: Sodium 135, Chloride 85 L, Potassium 4.1, Carbon Dioxide 39 H, Anion Gap 14, BUN 32 H, Creatinine 0.8, Est GFR ( Amer) > 60, Est GFR ( Non-Af Amer) > 60, Random Glucose 242 H, Calcium 9.2, Lactate Dehydrogenase 414 , Total Creatine Kinase 63, Troponin I < 0.01 D, NT-Pro-B Natriuret Pep 99.3 12/22/16 15:20: PT 10.8, INR 1.00, APTT 25.7 12/22/16 14:50: pO2 41, VBG pH 7.33, VBG pCO2 87.0 H*, VBG HCO3 45.9 H, VBG Total CO2 48.6 H, VBG O2 Sat (Calc) 79.6 H, VBG Base Excess 15.5 H, VBG Potassium 6.1 H, Sodium 131.0 L, Chloride 91.0 L, Glucose 270 H, Lactate 1.9, FiO2 21.0, Venous Blood Potassium 6.1 H 12/22/16 14:50: WBC 10.8 D, RBC 3.79, Hgb 10.9 L, Hct 35.5 L, MCV 93.7, MCH 28.8, MCHC 30.7 L, RDW 14.0, Plt Count 365, MPV 9.9, Gran % 65.9, Lymph % (Auto ) 20.4 L, Levy % (Auto) 10.0 H, Eos % (Auto) 3.1, Baso % (Auto) 0.6, Gran # 7.10 H, Lymph # 2.2, Levy # 1.1 H, Eos # 0.3, Baso # 0.06 I have reviewed the lab results: Yes - RAD Interpretation Radiology Orders: 12/22/16 14:27 CHEST PORTABLE [RAD] Stat Education Program Associate: Radiologist - EKG Interpretation Interpreted by ED Physician: Yes Type: 12 lead EKG - Medication Orders Current Medication Orders: Discontinued Medications Albuterol/Ipratropium (Duoneb 3 Mg/0.5 Mg (3 Ml) Ud) 3 ml IH Q15M BRIANNA Stop: 12/22/16 15:01 Last Admin: 12/22/16 15:06 Dose: 3 ml Furosemide (Lasix) 20 mg IVP STAT STA Stop: 12/22/16 14:28 Last Admin: 12/22/16 14:59 Dose: 20 mg MAR Blood Pressure Document 12/22/16 14:59 AD (Rec: 12/22/16 15:00 AD [facility] [id number] Blood Pressure Blood Pressure (100/60-150/90) 139/58 IVP Administration Document 12/22/16 14:59 AD (Rec: 12/22/16 15:00 AD [facility] [id number] Charges for Administration # of IVP Administrations 1 Methylprednisolone (Solu-Medrol) 125 mg IVP STAT STA Stop: 12/22/16 14:28 Last Admin: 12/22/16 15:00 Dose: 125 mg IVP Administration Document 12/22/16 15:00 AD (Rec: 12/22/16 15:01 AD [facility] [id number] Charges for Administration # of IVP Administrations 1 - Scribe Statement The provider has reviewed the documentation as recorded by the Scribe Moriah Segundo Provider Scribe Attestation: All medical record entries made by the Scribe were at my direction and personally dictated by me. I have reviewed the chart and agree that the record accurately reflects my personal performance of the history, physical exam, medical decision making, and the department course for this patient. I have also personally directed, reviewed, and agree with the discharge instructions and disposition. Disposition/Present on Arrival - Present on Arrival Any Indicators Present on Arrival: Yes History of DVT/PE: No History of Uncontrolled Diabetes: Yes Urinary Catheter: No History of Decub. Ulcer: No History Surgical Site Infection Following: None - Disposition Have Diagnosis and Disposition been Completed?: Yes Diagnosis: Chronic obstructive airway disease Disposition: HOSPITALIZED Disposition Time: 16:30 Patient Plan: Admission Condition: GUARDED Forms: [employer] ([place]uneian)
[2016-12-22] MEDS: Albuterol-Ipratrop 3 mg / 0.5 (3 ml) UD IH SCH ×4 (14:47→20:07)
[2016-12-22 15:08] LABS: VENOUS BLOOD GAS BASE EXCESS 15.5 mmol/L (0.0-2.0); VENOUS BLOOD PH 7.33 (7.32-7.43)
[2016-12-22 15:11] LABS: BASO # 0.06 K/mm3 (0.0-2.0); BASO % 0.6 % (0.0-3.0); EOS # 0.3 (0.0-0.7); EOS % 3.1 % (1.5-5.0); GRAN # 7.1 (1.4-6.5); GRAN % 65.9 % (50.0-68.0); HEMATOCRIT 35.5 % (36.0-48.0); LYMPH # 2.2 (1.2-3.4); LYMPH % 20.4 % (22.0-35.0); MEAN CELL VOLUME 93.7 fl (80.0-105.0); MEAN CORPUSCULAR HEMOGLOBIN 28.8 pg (25.0-35.0); MEAN CORPUSCULAR HGB CONC 30.7 g/dl (31.0-37.0); MEAN PLATELET VOLUME 9.9 fl (7.0-11.0); MONO # 1.1 (0.1-0.6); WHITE BLOOD COUNT 10.8 10^3/ul (4.5-11.0)
--- NOTE | 2016-12-22 15:22 | RAD ---
HISTORY: sob r/o chf r/o pna COMPARISON: 08/22/2016. FINDINGS: LUNGS: The lungs are well inflated. No focal consolidation.The lungs are hyperinflated and there is peribronchial thickening with chronic changes in both lungs. There is also chronic interstitial thickening in the lower lobes. PLEURA: No significant pleural effusion identified, no pneumothorax apparent. CARDIOVASCULAR: The heart is normal in size. Macro OSSEOUS STRUCTURES: No significant abnormalities. VISUALIZED UPPER ABDOMEN: Normal. OTHER FINDINGS: None. IMPRESSION: COPD and interstitial pulmonary fibrosis. No acute findings.
[2016-12-22 16:01] LABS: BLOOD UREA NITROGEN 32 mg/dL (7-21); CALCIUM 9.2 mg/dL (8.4-10.5); CHLORIDE 85 mmol/L (98-107); GFR AFRICAN-AMERICAN > 60; GLUCOSE,RANDOM 242 mg/dL (70-110); POTASSIUM 4.1 mmol/L (3.6-5.0); SODIUM 135 mmol/L (132-148)
[2016-12-22 16:06] LABS: PARTIAL THROMBOPLASTIN TIME 25.7 Seconds (23.7-30.8)
[2016-12-22 16:09] LABS: CARBON DIOXIDE 39 mmol/L (21-33)
[2016-12-22 16:14] LABS: TROPONIN I < 0.01 ng/mL
[2016-12-22 16:46] LABS: ARTERIAL BLOOD GAS O2 CAPACITY 14.8 mL/dl (16-24); ARTERIAL BLOOD GAS O2 CONTENT 14.4 ML/dl (15-23); ARTERIAL BLOOD GAS PH 7.42 (7.35-7.45); ARTERIAL BLOOD HGB O2 SAT 94.4 % (95.0-98.0); CARBOXYHEMOGLOBIN 1.7 % (0.5-1.5); HHB 2.8 % (0-5); METHEMOGLOBIN 1.1 % (0.0-3.0)
[2016-12-22 16:51] LABS: ARTERIAL BLOOD GAS HCO3 42.2 mmol/L (21-28)
[2016-12-22] MEDS ORDERED: Furosemide 40 mg/5 mL Oral Soln UD PO SCH (17:15)
[2016-12-22] MEDS: Metoprolol Succinate 50 mg XL Tab PO SCH (17:53)
[2016-12-22] MEDS: Tiotropium 18 mcg Cap For Inhalation IH SCH (17:53)
[2016-12-22] MEDS ORDERED: Albuterol-Ipratrop 3 mg / 0.5 (3 ml) UD IH PRN (19:09)
[2016-12-22] MEDS ORDERED: Insulin Detemir 100 units/ml Vial (Levemir) SC STA (22:05)
--- NOTE | 2016-12-22 22:05 | CP.PCM.PN ---
Subjective - Date & Time of Evaluation Date of Evaluation: 12/22/16 Time of Evaluation: 22:05 - Subjective Subjective: Patient was seen at bedside. Had FSBS of 351 mg %. She is asymptomatic. Denies sweating, numbness, blurry vision , urinary symptoms. Also requested something for itching. No other complaints. This 71 year old woman was admitted with sob, b/l leg swelling. Has PMH of DM II, COPD, HTN, CAD with 9 stents. Objective - Vital Signs/Intake and Output Vital Signs (last 24 hours): Temp Pulse Resp BP Pulse Ox 98.3 F 95 H 19 136/69 94 L 12/22/16 14:05 12/22/16 21:36 12/22/16 21:36 12/22/16 21:36 12/22/16 20:53 Intake and Output: 12/22/16 12/23/16 18:59 06:59 Output Total 400 Balance -400 - Medications Medications: Current Medications Albuterol/Ipratropium (Duoneb 3 Mg/0.5 Mg (3 Ml) Ud) 3 ml IH [id number] [facility] Last Admin: 12/22/16 20:07 Dose: 3 ml Albuterol/Ipratropium (Duoneb 3 Mg/0.5 Mg (3 Ml) Ud) 3 ml IH Q2H PRN PRN Reason: Shortness of Breath Allopurinol (Zyloprim) 300 mg PO DAILY [facility] Aspirin (Ecotrin) 81 mg PO DAILY [facility] Last Admin: 12/22/16 17:52 Dose: Not Given Atorvastatin Calcium (Lipitor) 20 mg PO DAILY [facility] Last Admin: 12/22/16 17:53 Dose: Not Given Clopidogrel Bisulfate (Plavix) 75 mg PO DAILY [facility] Last Admin: 12/22/16 17:53 Dose: Not Given Fenofibrate (Tricor) 145 mg PO DAILY [facility] Last Admin: 12/22/16 17:53 Dose: Not Given Furosemide (Lasix) 40 mg IVP DAILY [facility] Isosorbide Mononitrate (Imdur) 60 mg PO DAILY [facility] Last Admin: 12/22/16 17:52 Dose: Not Given Lisinopril (Zestril) 30 mg PO DAILY [facility] Methylprednisolone (Solu-Medrol) 40 mg IV 12 [facility] Metoprolol Succinate (Toprol Xl) 50 mg PO DAILY [facility] Last Admin: 12/22/16 17:53 Dose: Not Given Pantoprazole Sodium (Protonix Ec Tab) 40 mg PO 0630 [facility] Primidone (Mysoline) 50 mg PO HS [facility] Ropinirole HCl (Requip) 2 mg PO HS [facility] Tiotropium Randolph (Spiriva) 18 mcg IH DAILY [facility] Last Admin: 12/22/16 17:53 Dose: Not Given - Labs Labs: PT 10.8 Seconds (9.9-11.8) 12/22/16 15:20 INR 1.00 (0.93-1.08) 12/22/16 15:20 APTT 25.7 Seconds (23.7-30.8) 12/22/16 15:20 Assessment and Plan - Assessment and Plan (Free Text) Assessment: Hyperglycemia. Adjustment Insomnia. DM II. HTN. CAD. COPD. Plan: Benadry 25 mg PO for itchig. 8 units regular insulin ordered. Continue present management.
--- NOTE | 2016-12-23 01:04 | CARD ---
APPROVED REPORT EKG Measurement Heart [id number] <Conclusion> Normal sinus rhythm Septal infarct, age undetermined Abnormal ECG
[2016-12-23] MEDS ORDERED: Insulin Regular 1 UNITS/0.01 ML ML SC STA (03:19)
[2016-12-23] MEDS: Pantoprazole 40 mg EC Tab PO SCH (05:52)
[2016-12-23] MEDS: Albuterol-Ipratrop 3 mg / 0.5 (3 ml) UD IH SCH ×3 (07:50→19:48)
[2016-12-23] MEDS ORDERED: Furosemide 40 mg/5 mL Oral Soln UD PO SCH (10:00)
[2016-12-23] MEDS: Tiotropium 18 mcg Cap For Inhalation IH SCH (10:23)
[2016-12-23] MEDS: Metoprolol Succinate 50 mg XL Tab PO SCH (10:32)
[2016-12-23] MEDS ORDERED: MethylPREDNISolone 40 mg Vial IV SCH (12:00)
--- NOTE | 2016-12-23 14:20 | PN ---
SUBJECTIVE: The patient is a 71 years old, seen and examined, states she feels lot better, less shortness of breath, complained of dry mouth because of BiPAP, but currently, she is on 2 L of oxygen, seems to be stable. PHYSICAL EXAMINATION: VITAL SIGNS: She is afebrile, pulse 75, respirations 18, and blood pressure 130/80. LUNGS: Bilateral fair air flow. Diffusely decreased breath sounds. HEART: S1 and S2 audible. ABDOMEN: Soft, nontender. No rebound. No guarding. NEUROLOGIC: The patient is awake and alert, able to communicate, able to move all extremities. Bilateral leg +1 edema. LABORATORY EXAM: Blood sugar is 264. ASSESSMENT AND PLAN: 1. Chronic obstructive pulmonary disease exacerbation. 2. Pulmonary fibrosis. 3. Insulin-dependent diabetes. 4. Hypertension. 5. Hyperlipidemia. 6. Pulmonary hypertension. 7. Status post CO2 narcosis. 8. Coronary artery disease. PLAN: We will start her on steady dose of Levemir 20 units at bedtime and give her 12 units before breakfast, before dinner and monitor her blood sugar. Cut down her steroids since she is not actively wheezing. Continue nebulizer treatment. Out of bed to chair. Physical therapy evaluation has been requested. Monitor blood sugar closely. We will slowly taper down steroid and discharge plan soon early next week. Ten Sher MD
[2016-12-23] MEDS: Insulin Lispro (humaLOG) MIX 75/25(10 ml) SC SCH (17:38)
[2016-12-23] MEDS: Insulin Reg-HIGH-Coverage SC SCH ×2 (17:40→22:19)
[2016-12-23] MEDS: MethylPREDNISolone 40 mg Vial IV SCH (22:17)
[2016-12-23] MEDS: Insulin Detemir 100 units/ml Vial (Levemir) SC SCH (22:18)
[2016-12-24] MEDS: Albuterol-Ipratrop 3 mg / 0.5 (3 ml) UD IH SCH ×4 (01:31→20:31)
[2016-12-24] MEDS: Pantoprazole 40 mg EC Tab PO SCH (08:01)
[2016-12-24] MEDS: Insulin Reg-HIGH-Coverage SC SCH ×4 (08:01→22:50)
[2016-12-24] MEDS: Insulin Lispro (humaLOG) MIX 75/25(10 ml) SC SCH ×2 (08:06→17:16)
[2016-12-24 08:13] VITALS: RESP 20
[2016-12-24] MEDS: MethylPREDNISolone 40 mg Vial IV SCH ×2 (09:45→22:54)
[2016-12-24] MEDS: Tiotropium 18 mcg Cap For Inhalation IH SCH (09:48)
[2016-12-24] MEDS: Metoprolol Succinate 50 mg XL Tab PO SCH (09:48)
--- NOTE | 2016-12-24 10:16 | PN ---
DATE: 12/24/2016 SUBJECTIVE: The patient has no complaints of any chest pain, shortness of breath, headaches, or dizziness. PHYSICAL EXAMINATION: VITAL SIGNS: Temperature 97.6, pulse 66, blood pressure 111/51, and respirations 20. GENERAL: The patient is lying in bed, flat, comfortable. HEENT: No oral lesion. Anicteric sclerae. Moist mucosa. NECK: No JVD, adenopathy, or thyromegaly. CARDIOVASCULAR: S1 and S2, regular. No murmurs, rubs, or gallops. LUNGS: Bilateral good air entry. Mild bilateral wheezing. No rales or rhonchi. ABDOMEN: Bowel sounds are positive, soft, nontender and nondistended. EXTREMITIES: No cyanosis, clubbing or edema. LABORATORY DATA: Creatinine 0.8. ASSESSMENT: 1. Acute chronic obstructive pulmonary disease. 2. Penicillin allergy. 3. Diabetes type 2. 4. Pulmonary fibrosis. 5. Hypertension. 6. Dyslipidemia. 7. Pulmonary hypertension. 8. Coronary artery disease. PLAN: The patient is currently comfortable. She is says her breathing has improved. She does have elevated sugars and this is most likely from the steroids that the patient is taking. The patient is on aspirin daily and she is going to continue with her insulin. She is on Levemir for her diabetes. She is also on insulin Lispro. The patient is on Solu-Medrol at 30 mg twice a day. She is going to continue with lisinopril for hypertension. We will repeat her blood work tomorrow. The patient's blood cultures have been negative. Trace Gil MD
[2016-12-24] MEDS: Insulin Detemir 100 units/ml Vial (Levemir) SC SCH (22:54)
[2016-12-25] MEDS: Albuterol-Ipratrop 3 mg / 0.5 (3 ml) UD IH SCH ×2 (01:58→08:44)
[2016-12-25] MEDS: Pantoprazole 40 mg EC Tab PO SCH (05:38)
[2016-12-25 07:04] LABS: HEMATOCRIT 33.2 % (36.0-48.0); MEAN CELL VOLUME 91.5 fl (80.0-105.0); MEAN CORPUSCULAR HEMOGLOBIN 28.4 pg (25.0-35.0); MEAN PLATELET VOLUME 10.2 fl (7.0-11.0); RED CELL DISTRIBUTION WIDTH 13.8 % (11.5-14.5); WHITE BLOOD COUNT 10.3 10^3/ul (4.5-11.0)
[2016-12-25 07:30] LABS: ALB/GLOB RATIO 1.1 (1.1-1.8); ALKALINE PHOSPHATASE 50 U/L (38-126); ALT/SGPT 23 U/L (7-56); AST/SGOT 31 U/L (14-36); BILIRUBIN,TOTAL 0.4 mg/dL (0.2-1.3); BLOOD UREA NITROGEN 55 mg/dL (7-21); CALCIUM 8.7 mg/dL (8.4-10.5); CARBON DIOXIDE 38 mmol/L (21-33); CHLORIDE 84 mmol/L (98-107); GFR AFRICAN-AMERICAN > 60; GLUCOSE,RANDOM 215 mg/dL (70-110); POTASSIUM 4.8 mmol/L (3.6-5.0); SODIUM 129 mmol/L (132-148); TOTAL PROTEIN 6.7 g/dL (5.8-8.3)
--- NOTE | 2016-12-25 08:20 | HP ---
HISTORY OF PRESENT ILLNESS: The patient is 71 years old female who came to emergency room because of increasing shortness of breath going on for the last week and has been trying her usual medication including nebulizer and different pumps. Denies any fever or chills. No history of nausea. Does complain of productive cough. Also complain of bilateral leg swelling. Denies any chest pain. No fever. No hemoptysis. No hematemesis. No nausea, vomiting, or diarrhea. PAST MEDICAL HISTORY: Significant for: 1. Terminal COPD. 2. Pulmonary fibrosis. 3. Xtw-hrffoxy-lfzwndntg diabetes. 4. Hypertension. 5. Coronary artery disease, status post angioplasty. She has recent angioplasty done earlier this year. 6. Restless legs syndrome. 7. Deconditioning and difficulty walking. ALLERGIES: SHE IS ALLERGIC TO FISH, IODINE, OXAPROZIN, AND PENICILLIN. MEDICATIONS AT HOME: She is on: 1. . 2. Spiriva. 3. Plavix 75 daily. 4. Aspirin 81 daily. 5. Primidone 50 mg at bedtime. 6. TriCor 145 daily. 7. Lipitor 20 mg daily. 8. Requip 2 mg at bedtime. 9. Zestril 30 mg daily. 10. Lasix 40 mg daily. 11. Allopurinol 300 daily. 12. Metoprolol 50 mg daily. 13. Imdur 60 mg daily. SOCIAL HISTORY: She is and lives with her . She was a very heavy smoker all her life, quit 6 years ago. REVIEW OF SYSTEMS: Significant for cough, congestion, and shortness of breath. PHYSICAL EXAMINATION: GENERAL: She is awake, alert, oriented, and short of breath. VITAL SIGNS: She is afebrile, pulse 89, respirations 16, and blood pressure 131/59. LUNGS: Bilateral diffusely decreased breath sound. Bilateral expiratory rhonchi. HEART: S1 and S2 is audibile and tachycardic. ABDOMEN: Soft and nontender. No rebound. No guarding. NEUROLOGIC: The patient is awake, alert, and communicative. Bilateral leg +2 edema. LABORATORY DATA: WBC is 10.8, hemoglobin is 10.9, hematocrit is 35, and platelets are 365. PT is 10.8, INR is 1.00, and PTT is 25.7. Chemistry; sodium is 135, potassium is 4.1, chloride is 85, CO2 is 39, BUN is 32, creatinine is 0.8, and blood sugar is 242. LFTs are within normal limits. X-ray of chest is unremarkable except COPD and chronic fibrosis. ASSESSMENT: 1. Chronic obstructive pulmonary disease exacerbation. 2. Bronchospasm. 3. Hypoxia. 4. Carbon dioxide retention. 5. Coronary artery disease. 6. Hyperlipidemia. 7. Restless legs syndrome. 8. Bkk-wrezxxt-ewhdokcbl diabetes. PLAN: We will start the patient on nebulizer treatment. I will start her on isosorbide and aspirin. She is on Lasix 40 IV daily. Continue her on statin. She is on Plavix. We will continue her on PPI and give her IV steroids. Monitor blood sugar and we will reevaluate the patient in a.m. Ten Sher MD
[2016-12-25 08:23] VITALS: BP 130/60; TEMP 98; O2SAT 94
[2016-12-25] MEDS: Insulin Reg-HIGH-Coverage SC SCH (08:55)
[2016-12-25] MEDS: Insulin Lispro (humaLOG) MIX 75/25(10 ml) SC SCH (08:56)
[2016-12-25] MEDS: MethylPREDNISolone 40 mg Vial IV SCH (10:40)
[2016-12-25] MEDS: Tiotropium 18 mcg Cap For Inhalation IH SCH (10:41)
[2016-12-25] MEDS: Metoprolol Succinate 50 mg XL Tab PO SCH (10:45)
[2016-12-25 10:51] VITALS: PULSE 80
--- NOTE | 2016-12-25 15:11 | DS ---
HISTORY: The patient is a 71-year-old, seen and examined, states feels lot better, eating and tolerating, mild shortness of breath, scanty cough. PHYSICAL EXAMINATION: VITAL SIGNS: She is afebrile, pulse 80, respirations 20 and blood pressure 130/60. LUNGS: Bilateral fair airflow. Few expiratory rhonchi. Decreased at bases. HEART: S1 and S2 audible. ABDOMEN: Soft, nontender. No rebound. No guarding. NEUROLOGIC: She is awake and alert, able to communicate. Ambulates with minimal assistance. LABORATORY EXAM: WBC 10.3, hemoglobin 10.3, hematocrit 33.2 and platelets 313. Chemistry: Sodium 129, potassium 4.8, chloride 84, CO2 of 38, BUN 55, creatinine 1.0, blood sugar 184. ASSESSMENT: 1. Chronic obstructive pulmonary disease exacerbation. 2. Hypertension. 3. Coronary artery disease. 4. Insulin-dependent diabetes. 5. Restless leg syndrome. 6. Peptic ulcer disease. PLAN: Currently, the patient is hemodynamically stable. She is not actively wheezing. We will switch her prednisone to 20 twice a day for 3 days and 20 daily for 5 days and she will go on her maintenance dose of 10 mg daily and she will follow with . Ten Sher MD
== END 2016-12-25 13:59 | disposition home or self-care (01) | DRG 192 ==
LOC: ED 14:04 → ERH 16:31 → 2RNO 21:38 → 3RSO 12-23 18:07
PROVIDERS: ADMIT Internal Medicine; ATTEND Internal Medicine
PROC: 5A09357 Assistance with Respiratory Ventilation, Less than 24 Consecutive Hours, Continuous Positive Airway Pressure (ICD-10-PCS; principal; 2016-12-22)
DX: J44.1 Chronic obstructive pulmonary disease with (acute) exacerbation (principal); E11.65 Type 2 diabetes mellitus with hyperglycemia; I27.2 Other secondary pulmonary hypertension; J84.10 Pulmonary fibrosis, unspecified; K27.9 Peptic ulcer, site unspecified, unspecified as acute or chronic, without hemorrhage or perforation; I10 Essential (primary) hypertension; I25.10 Atherosclerotic heart disease of native coronary artery without angina pectoris; G25.81 Restless legs syndrome; R26.2 Difficulty in walking, not elsewhere classified; E78.5 Hyperlipidemia, unspecified; F51.02 Adjustment insomnia; Z79.4 Long term (current) use of insulin; Z95.5 Presence of coronary angioplasty implant and graft; Z79.82 Long term (current) use of aspirin; Z88.0 Allergy status to penicillin; Z87.891 Personal history of nicotine dependence

== ENCOUNTER 2017-01-20 18:53 | Emergency (ER) | payer MEDICARE, MEDICAID ==
[2017-01-20 18:58] VITALS: BMI 23.3
[2017-01-20] MEDS ORDERED: Albuterol-Ipratrop 3 mg / 0.5 (3 ml) UD IH STA ×2 (19:15→20:22)
[2017-01-20 19:19] VITALS: RESP 20; TEMP 98.3; O2SAT 98
--- NOTE | 2017-01-20 19:19 | ED PDOC ---
Arrival/HPI - General Chief Complaint: Cough, Cold, Congestion Time Seen by Provider: 01/20/17 19:03 Historian: Patient - History of Present Illness Narrative History of Present Illness (Text): 01/20/17 19:14 71 year old female, whose past medical history includes COPD, diabetes, hypertension, CAD with 9 stents, hyponatremia, and umbilical hernia, presents to the emergency department complaining of yellow streaks of blood associated with coughing that began today. Patient reports having a cough for around 9 years that has worsen 3 years ago. She reports coming in to the emergency department for similar symptoms and was told the blood was from her lungs caused by coughing too much. Patient is currently on Plavix. Patient denies any clots, fever, chills, chest pain, shortness of breath, nausea, vomiting, diarrhea, urinary symptoms, back pain, neck pain, headache, dizziness, or any other complaints. PMD: Dr. Sherman and Dr. Sher Time/Duration: Other (today ) Symptom Onset: Sudden Symptom Course: Unchanged Activities at Onset: Light Context: Home Past Medical History - Provider Review Nursing Documentation Reviewed: Yes - Infectious Disease Hx of Infectious Diseases: None - Tetanus Immunization Tetanus Immunization: Unknown - Cardiac Hx Cardiac Disorders: Yes (CAD) - Pulmonary Hx Chronic Obstructive Pulmonary Disease (COPD): Yes Hx Emphysema: Yes - Neurological HX Cerebrovascular Accident: No - HEENT Hx HEENT Disorder: Yes Hx Cataracts: Yes - Renal Hx Renal Failure: Yes - Endocrine/Metabolic Hx Diabetes Mellitus Type 2: Yes - Hematological/Oncological Hx Hepatitis B: Yes - Integumentary Hx Dermatological Disorder: Yes - Musculoskeletal/Rheumatological Hx Falls: Yes - Gastrointestinal Hx Gastrointestinal Disorders: Yes (VENTRAL HERNIA) - Genitourinary/Gynecological Hx Genitourinary Disorders: No - Psychiatric Hx Emotional Abuse: No Hx Physical Abuse: No Hx Substance Use: No - Surgical History Hx Coronary Stent: Yes (X9) Hx Hysterectomy: Yes (partial) - Anesthesia Hx Anesthesia Reactions: No Hx Malignant Hyperthermia: No - Suicidal Assessment Feels Threatened In Home Enviroment: No Family/Social History - Physician Review Nursing Documentation Reviewed: Yes Family/Social History: No Known Family HX Smoking Status: Former Smoker Hx Alcohol Use: No Hx Substance Use: No Hx Substance Use Treatment: No Allergies/Home Meds Allergies/Adverse Reactions: Allergies FISH Allergy (Severe, Verified 01/20/17 18:56) THROAT SWELLING iodine Allergy (Verified 01/20/17 18:56) RASH oxaprozin [From Daypro] Allergy (Verified 01/20/17 18:56) RASH Penicillins Allergy (Verified 01/20/17 18:56) ANAPHYLAXIS Home Medications: Home Meds Medication Instructions Recorded Confirmed Furosemide [Lasix] 40 mg PO DAILY 05/29/16 01/20/17 Primidone [Mysoline] 50 mg PO HS 07/02/16 01/20/17 Albuterol Sulfate [Proair Hfa] 0.09 mg IH DAILY 08/22/16 01/20/17 Allopurinol [Zyloprim] 300 mg PO DAILY 12/22/16 01/20/17 Fenofibrate [Tricor] 145 mg PO DAILY 12/22/16 01/20/17 Insulin Detemir [Levemir] 25 units SQ HS 12/22/16 01/20/17 Metoprolol Succinate [Toprol XL] 50 mg PO DAILY 12/22/16 01/20/17 Review of Systems - Physician Review All systems were reviewed & negative as marked: Yes - Review of Systems Constitutional: absent: Fevers, Other Respiratory: Cough (Coughing up streaks of blood). absent: SOB Cardiovascular: absent: Chest Pain Gastrointestinal: absent: Abdominal Pain, Diarrhea, Nausea, Vomiting Genitourinary Female: absent: Dysuria, Frequency, Hematuria Musculoskeletal: absent: Back Pain, Neck Pain Neurological: absent: Headache, Dizziness Physical Exam Vital Signs Reviewed: Yes Vital Signs Temp Pulse Resp BP Pulse Ox 01/20/17 18:58 98.3 F 94 H 20 143/69 98 01/20/17 18:53 98.3 F 94 H 20 143/69 98 Temperature: Afebrile Blood Pressure: Normal Pulse: Regular Respiratory Rate: Normal Appearance: Positive for: Well-Appearing, Non-Toxic, Comfortable Pain Distress: None Mental Status: Positive for: Alert and Oriented X 3 - Systems Exam Head: Present: Atraumatic, Normocephalic Pupils: Present: PERRL Extroacular Muscles: Present: EOMI Conjunctiva: Present: Normal Mouth: Present: Moist Mucous Membranes Neck: Present: Normal Range of Motion Respiratory/Chest: Present: Wheezes. No: Respiratory Distress, Accessory Muscle Use, Retracting Cardiovascular: Present: Regular Rate and Rhythm, Normal S1, S2. No: Murmurs Abdomen: Present: Normal Bowel Sounds. No: Tenderness, Distention, Peritoneal Signs Back: Present: Normal Inspection Upper Extremity: Present: Normal Inspection. No: Cyanosis, Edema Lower Extremity: Present: Normal Inspection. No: Edema Neurological: Present: GCS=15, CN II-XII Intact, Speech Normal Skin: Present: Warm, Dry, Normal Color. No: Rashes Psychiatric: Present: Alert, Oriented x 3, Normal Insight, Normal Concentration Medical Decision Making ED Course and Treatment: 01/20/17 19:14 Impression: 71 year old female presents complaining of coughing of yellow streaks of blood that began today. Patient's cough worsen 3 years ago. Differential Diagnosis included but are not limited to: COPD VS Cough r/o Pneumonia Plan: -- Labs -- Chest X-ray -- Duoneb -- SOLU-Medrol -- Blood Culture -- Reassess and disposition Prior Visits: Notes and results from previous visits were reviewed. On 12/22/16 patient came in complaining of worsening shortness of breath. Patient was admitted. Progress Notes: Patient's CXR is unchanged from previous. No Pneumonia. Considering her medical history will tx with Azithromycin. After 2nd duoneb and Solumedrol lungs are clear. No w/r/r. Patient states that she's on home oxygen so her oxygen needs to be at 2.5 for normal oxygen saturation levels. She still denies shortness of breathe. - Lab Interpretations Lab Results: 01/20/17 19:40 01/20/17 19:40 Lab Results 01/20/17 19:40: Sodium 134, Potassium 4.2, Chloride 88 L, Carbon Dioxide 39 H, Anion Gap 11, BUN 20, Creatinine 0.8, Est GFR ( Amer) > 60, Est GFR (Non- Af Amer) > 60, Random Glucose 216 H, Calcium 9.2 01/20/17 19:40: PT 12.0, INR 1.10 H, APTT 29.3 01/20/17 19:40: WBC 10.7, RBC 3.72, Hgb 10.9 L, Hct 34.4 L, MCV 92.5, MCH 29.3, MCHC 31.7, RDW 13.3, Plt Count 413, MPV 9.6, Gran % 61.9, Lymph % (Auto) 18.8 L , Weakley % (Auto) 14.6 H, Eos % (Auto) 4.2, Baso % (Auto) 0.5, Gran # 6.64 H, Lymph # 2.0, Weakley # 1.6 H, Eos # 0.5, Baso # 0.05 I have reviewed the lab results: Yes - RAD Interpretation Radiology Orders: 01/20/17 19:15 CHEST PORTABLE [RAD] Stat - Medication Orders Current Medication Orders: Discontinued Medications Albuterol/Ipratropium (Duoneb 3 Mg/0.5 Mg (3 Ml) Ud) 3 ml IH STAT STA Stop: 01/20/17 19:16 Last Admin: 01/20/17 19:44 Dose: 3 ml Albuterol/Ipratropium (Duoneb 3 Mg/0.5 Mg (3 Ml) Ud) 3 ml IH STAT STA Stop: 01/20/17 20:23 Last Admin: 01/20/17 20:26 Dose: 3 ml Azithromycin (Zithromax) 500 mg PO STAT STA PRN Reason: Protocol Stop: 01/20/17 20:27 Methylprednisolone (Solu-Medrol) 125 mg IVP STAT STA Stop: 01/20/17 19:18 Last Admin: 01/20/17 19:44 Dose: 125 mg IVP Administration Document 01/20/17 19:44 JOL (Rec: 01/20/17 19:44 JOL [id number]) Charges for Administration # of IVP Administrations 1 - Scribe Statement The provider has reviewed the documentation as recorded by the Scribtanya Saleem All medical record entries made by the Kellyibtanya were at my direction and personally dictated by me. I have reviewed the chart and agree that the record accurately reflects my personal performance of the history, physical exam, medical decision making, and the department course for this patient. I have also personally directed, reviewed, and agree with the discharge instructions and disposition. Disposition/Present on Arrival - Present on Arrival Any Indicators Present on Arrival: No History of DVT/PE: No History of Uncontrolled Diabetes: No Urinary Catheter: No History of Decub. Ulcer: No History Surgical Site Infection Following: None - Disposition Have Diagnosis and Disposition been Completed?: Yes Diagnosis: Chronic obstructive airway disease Disposition: HOME/ ROUTINE Disposition Time: 20:48 Patient Plan: Discharge Patient Problems: Current Active Problems Problem Status Onset Chronic obstructive airway disease Acute Condition: IMPROVED Discharge Instructions (ExitCare): COPD (Chronic Obstructive Pulmonary Disease ) (ED) Additional Instructions: Mr Miranda, thank you for letting us take care of you today. Your provider was Dr. Brody. You were treated for COPD, Bronchitis. The emergency medical care you received today was directed at your acute symptoms. If you were prescribed any medication, please fill it and take as directed. It may take several days for your symptoms to resolve. Return to the Emergency Department if your symptoms worsen, do not improve, or if you have any other problems. Please contact your doctor or call one of the physicians/clinics you have been referred to that are listed on the Patient Visit Information form that is included in your discharge packet. Bring any paperwork you were given at discharge with you along with any medications you are taking to your follow up visit. Our treatment cannot replace ongoing medical care by a primary care provider (PCP) outside of the emergency department. Thank you for allowing the [facility] team to be part of your care today. If you had an X-Ray or CT scan: A Radiologist will review the ED reading if any change in treatment is needed we will contact you. If you had a blood, urine, or wound culture: It will take several days for the results, if any change in treatment is needed we will contact you. If you had an STI test: It will take 48 hours for the results. Please call after 1 week if you have not heard back. Prescriptions: Albuterol HFA [Ventolin HFA 90 mcg/actuation (8 g)] 2 puff IH Q4 #1 puff Azithromycin [Z-Homer] 250 mg PO DAILY #4 tab predniSONE [predniSONE Tab] 40 mg PO DAILY #8 tab Referrals: [facility] Kristine Baca, [Primary Care Provider] - Follow up with primary Forms: [employer] ([place])
[2017-01-20 20:08] LABS: BASO # 0.05 K/mm3 (0.0-2.0); BASO % 0.5 % (0.0-3.0); EOS # 0.5 (0.0-0.7); EOS % 4.2 % (1.5-5.0); GRAN # 6.64 (1.4-6.5); GRAN % 61.9 % (50.0-68.0); HEMATOCRIT 34.4 % (36.0-48.0); LYMPH % 18.8 % (22.0-35.0); MEAN CELL VOLUME 92.5 fl (80.0-105.0); MEAN CORPUSCULAR HEMOGLOBIN 29.3 pg (25.0-35.0); MEAN CORPUSCULAR HGB CONC 31.7 g/dl (31.0-37.0); MEAN PLATELET VOLUME 9.6 fl (7.0-11.0); MONO # 1.6 (0.1-0.6); MONO % 14.6 % (1.0-6.0); RED CELL DISTRIBUTION WIDTH 13.3 % (11.5-14.5); WHITE BLOOD COUNT 10.7 10^3/ul (4.5-11.0)
[2017-01-20 20:15] LABS: BLOOD UREA NITROGEN 20 mg/dL (7-21); CALCIUM 9.2 mg/dL (8.4-10.5); CHLORIDE 88 mmol/L (98-107); GFR AFRICAN-AMERICAN > 60; GLUCOSE,RANDOM 216 mg/dL (70-110); POTASSIUM 4.2 mmol/L (3.6-5.0); SODIUM 134 mmol/L (132-148)
[2017-01-20 20:18] LABS: INR 1.1 (0.93-1.08); PARTIAL THROMBOPLASTIN TIME 29.3 Seconds (25.1-36.5)
[2017-01-20 20:21] LABS: CARBON DIOXIDE 39 mmol/L (21-33)
[2017-01-21 05:27] VITALS: BP 142/68; PULSE 90
--- NOTE | 2017-01-21 09:54 | RAD ---
HISTORY: cough r/o pna COMPARISON: Multiple prior studies FINDINGS: LUNGS: There is chronic interstitial lung disease. There is no focal consolidation. PLEURA: No significant pleural effusion identified, no pneumothorax apparent. CARDIOVASCULAR: Normal. OSSEOUS STRUCTURES: No significant abnormalities. VISUALIZED UPPER ABDOMEN: Normal. OTHER FINDINGS: None. IMPRESSION: There is chronic interstitial lung disease. There is no focal consolidation.
== END 2017-01-20 21:53 | disposition home or self-care (01) ==
LOC: ED 18:53
DX: J44.9 Chronic obstructive pulmonary disease, unspecified (principal); Z87.891 Personal history of nicotine dependence; E11.9 Type 2 diabetes mellitus without complications
CPT/HCPCS: 71010; 80048; 85025; 85610; 85730; 87040; 96374; 99285; J2930

== ENCOUNTER 2017-04-24 20:49 | Inpatient (IN) | payer MEDICARE, MEDICAID ==
[2017-04-24 20:50] VITALS: BMI 23.3
--- NOTE | 2017-04-24 21:32 | ED PDOC ---
Arrival/HPI - General Chief Complaint: Shortness Of Breath Time Seen by Provider: 04/24/17 20:56 Historian: Patient - History of Present Illness Narrative History of Present Illness (Text): 04/24/17 21:27 Mandy Miranda is a 71 year old female, whose past medical history includes COPD, pulmonary fibrosis, diabetes, hypertension, CAD with multiple coronary stents, and peptic ulcer disease, who presents to the Emergency department complaining of shortness of breath. Patient states she has been experiencing shortness of breath for the past 2 days, worsening today, with associated chest heaviness. Patient notes symptoms are worsened with exertion. Patient states she took nebulizer treatments at home with minimal relief. Patient denies any fever, chills, nausea, vomiting, diarrhea, urinary symptoms, back pain, neck pain, headache, dizziness, or any other complaints. PMD: Dr. Sher Time/Duration: < week (2 days) Symptom Onset: Gradual Symptom Course: Unchanged Activities at Onset: Light Context: Home Past Medical History - Provider Review Nursing Documentation Reviewed: Yes - Infectious Disease Hx of Infectious Diseases: None - Tetanus Immunization Tetanus Immunization: Unknown - Cardiac Hx Cardiac Disorders: Yes (CAD) - Pulmonary Hx Chronic Obstructive Pulmonary Disease (COPD): Yes Hx Emphysema: Yes - Neurological HX Cerebrovascular Accident: No - HEENT Hx HEENT Disorder: Yes Hx Cataracts: Yes - Renal Hx Renal Failure: Yes - Endocrine/Metabolic Hx Diabetes Mellitus Type 2: Yes - Hematological/Oncological Hx Hepatitis B: Yes - Integumentary Hx Dermatological Disorder: Yes - Musculoskeletal/Rheumatological Hx Falls: Yes - Gastrointestinal Hx Gastrointestinal Disorders: Yes (VENTRAL HERNIA) - Genitourinary/Gynecological Hx Genitourinary Disorders: No - Psychiatric Hx Emotional Abuse: No Hx Physical Abuse: No Hx Substance Use: No - Surgical History Hx Coronary Stent: Yes (X9) Hx Hysterectomy: Yes (partial) - Anesthesia Hx Anesthesia Reactions: No Hx Malignant Hyperthermia: No - Suicidal Assessment Feels Threatened In Home Enviroment: No Family/Social History - Physician Review Nursing Documentation Reviewed: Yes Family/Social History: Unknown Family HX Smoking Status: Former Smoker Hx Alcohol Use: No Hx Substance Use: No Hx Substance Use Treatment: No Allergies/Home Meds Allergies/Adverse Reactions: Allergies FISH Allergy (Severe, Verified 01/20/17 18:56) THROAT SWELLING iodine Allergy (Verified 01/20/17 18:56) RASH oxaprozin [From Daypro] Allergy (Verified 01/20/17 18:56) RASH Penicillins Allergy (Verified 01/20/17 18:56) ANAPHYLAXIS zolpidem [From Ambien] Adverse Reaction (Intermediate, Verified 04/25/17 06:43) FATIGUE Fatigue and hallucinations. Home Medications: Home Meds Medication Instructions Recorded Confirmed Albuterol/Ipratropium [Combivent 1 puff IH DAILY 04/25/17 04/25/17 Respimat] Allopurinol 300 mg PO DAILY 04/25/17 04/25/17 Aspirin [Ecotrin] 81 mg PO DAILY 04/25/17 04/25/17 Atorvastatin [Lipitor] 20 mg PO DAILY 04/25/17 04/25/17 Clopidogrel [Plavix] 75 mg PO DAILY 04/25/17 04/25/17 Fenofibrate [Tricor] 145 mg PO DAILY 04/25/17 04/25/17 Furosemide [Lasix] 40 mg PO DAILY 04/25/17 04/25/17 Insulin Detemir [Levemir] 25 units SC 04/25/17 04/25/17 Isosorbide Mononitrate [Imdur] 60 mg PO DAILY 04/25/17 04/25/17 Lisinopril [Zestril] 30 mg PO DAILY 04/25/17 04/25/17 Metoprolol Succinate [Toprol XL] 50 mg PO DAILY 04/25/17 04/25/17 Primidone [Mysoline] 50 mg PO HS 04/25/17 04/25/17 Primidone [Mysoline] 100 mg PO DAILY 04/25/17 04/25/17 Proair Hfa 8.5 mg IH DAILY 04/25/17 04/25/17 Roflumilast [Daliresp] 500 mcg PO DAILY 04/25/17 04/25/17 Tiotropium [Spiriva] 18 mg IH DAILY 04/25/17 04/25/17 rOPINIRole [Requip] 2 mg PO HS 04/25/17 04/25/17 Review of Systems - Physician Review All systems were reviewed & negative as marked: Yes - Review of Systems Constitutional: Normal. absent: Fevers Eyes: Normal ENT: Normal Respiratory: SOB Cardiovascular: Chest Pain (+chest heaviness), ATKINSON Gastrointestinal: Normal. absent: Abdominal Pain, Diarrhea, Nausea, Vomiting Genitourinary Female: Normal. absent: Dysuria, Frequency, Hematuria, Urine Output Changes Musculoskeletal: Normal. absent: Back Pain, Neck Pain Skin: Normal. absent: Rash Neurological: Normal. absent: Headache, Dizziness Endocrine: Normal Hemo/Lymphatic: Normal Psychiatric: Normal Physical Exam Vital Signs Reviewed: Yes Vital Signs Temp Pulse Resp BP Pulse Ox 04/24/17 21:13 98.2 F 94 H 18 163/86 H 97 04/24/17 21:09 98.2 F 96 H 20 163/86 H 97 Temperature: Afebrile Blood Pressure: Normal Pulse: Regular Respiratory Rate: Normal Appearance: Positive for: Well-Appearing, Non-Toxic, Comfortable Pain Distress: None Mental Status: Positive for: Alert and Oriented X 3 - Systems Exam Head: Present: Atraumatic, Normocephalic Pupils: Present: PERRL Extroacular Muscles: Present: EOMI Conjunctiva: Present: Normal Mouth: Present: Moist Mucous Membranes Neck: Present: Normal Range of Motion. No: Meningeal Signs, MIDLINE TENDERNESS , Paraspinal Tenderness Respiratory/Chest: Present: Decreased Breath Sounds (Decreased breath sounds bilaterally). No: Respiratory Distress, Accessory Muscle Use Cardiovascular: Present: Regular Rate and Rhythm, Normal S1, S2. No: Murmurs Abdomen: Present: Normal Bowel Sounds. No: Tenderness, Distention, Peritoneal Signs Back: Present: Normal Inspection. No: CVA Tenderness, Midline Tenderness, Paraspinal Tenderness Upper Extremity: Present: Normal Inspection. No: Cyanosis, Edema Lower Extremity: Present: Normal Inspection. No: Edema Neurological: Present: GCS=15, CN II-XII Intact, Speech Normal Skin: Present: Warm, Dry, Normal Color. No: Rashes Psychiatric: Present: Alert, Oriented x 3, Normal Insight, Normal Concentration Medical Decision Making ED Course and Treatment: 04/24/17 21:27 Impression: 71 year old female complaining of shortness of breath and chest heaviness for past 2 days. Plan: -- EKG -- Chest X-ray -- Labs, cardiac enzymes, BNP, -- Reassess and disposition Prior Visits: Notes and results from previous visits were reviewed. On 01/20/2017, pt as seen in the Emergency department for productive blood streaked coughing. Pt was d/c home. Progress Notes: Reviewed EKG, NSR at 99 bpm. Septal infarct. Non-specific ST/T wave changes. 04/24/17 22:09 Chest X-ray reviewed, shows chronic interstitial changes. 04/24/17 23:[address] Sher, who is aware and agrees with plan. Accepts pt in to her service. Pt will go to [facility] observation for COPD exacerbation. - Lab Interpretations Microbiology Results: Microbiology Results 04/25/17 01:26 Blood Blood Culture - Preliminary NO GROWTH AFTER 48 HOURS 04/25/17 00:21 Blood Blood Culture - Preliminary NO GROWTH AFTER 48 HOURS Lab Results: 04/25/17 11:20 04/25/17 11:20 Lab Results 04/25/17 16:31: POC Glucose (mg/dL) 288 H 04/25/17 11:59: POC Glucose (mg/dL) 216 H 04/25/17 11:20: Sodium 130 L, Potassium 4.6, Chloride 89 L, Carbon Dioxide 29, Anion Gap 17, BUN 18, Creatinine 0.7, Est GFR ( Amer) > 60, Est GFR (Non- Af Amer) > 60, Random Glucose 251 H, Calcium 10.0, Total Bilirubin 0.2, AST 32, ALT 28, Alkaline Phosphatase 62, Total Protein 7.4, Albumin 3.9, Globulin 3.5, Albumin/Globulin Ratio 1.1 04/25/17 11:20: WBC 9.2, RBC 3.88, Hgb 11.3 L, Hct 34.1 L, MCV 87.9, MCH 29.1, MCHC 33.1, RDW 13.9, Plt Count 262, MPV 9.4 04/25/17 07:39: POC Glucose (mg/dL) 271 H 04/25/17 05:22: POC Glucose (mg/dL) 307 H 04/25/17 02:50: POC Glucose (mg/dL) 340 H 04/25/17 02:44: POC Glucose (mg/dL) 327 H 04/24/17 22:18: Sodium 127 L, Potassium 4.2, Chloride 90 L, Carbon Dioxide 29, Anion Gap 13, BUN 18, Creatinine 0.6 L, Est GFR ( Amer) > 60, Est GFR ( Non-Af Amer) > 60, Random Glucose 129 H, Calcium 9.3, Total Bilirubin 0.3, AST 27, ALT 28, Alkaline Phosphatase 61, Lactate Dehydrogenase 427, Total Creatine Kinase 123, Troponin I < 0.01, NT-Pro-B Natriuret Pep 133, Total Protein 6.9, Albumin 3.5, Globulin 3.4, Albumin/Globulin Ratio 1.0 L 04/24/17 21:35: WBC 11.1 H, RBC 3.99, Hgb 11.7 L, Hct 34.9 L, MCV 87.5 D, MCH 29.3, MCHC 33.5, RDW 13.9, Plt Count 293, MPV 9.9 04/24/17 21:35: PT 11.1, INR 0.97, APTT 29.3 04/24/17 00:00: Influenza Typ A,B (EIA) Negative for flu a/b I have reviewed the lab results: Yes - RAD Interpretation Radiology Orders: 04/24/17 21:32 CHEST PORTABLE [RAD] Stat Radio Time Buyer: ED Physician - EKG Interpretation Interpreted by ED Physician: Yes Type: 12 lead EKG - Medication Orders Current Medication Orders: Albuterol/Ipratropium (Duoneb 3 Mg/0.5 Mg (3 Ml) Ud) 3 ml IH [id number] [facility] Last Admin: 04/27/17 08:43 Dose: 3 ml Albuterol/Ipratropium (Duoneb 3 Mg/0.5 Mg (3 Ml) Ud) 3 ml IH Q2H PRN PRN Reason: Shortness of Breath Last Admin: 04/25/17 07:34 Dose: 3 ml Allopurinol (Zyloprim) 300 mg PO DAILY [facility] Last Admin: 04/26/17 09:31 Dose: 300 mg Aspirin (Ecotrin) 81 mg PO DAILY [facility] Last Admin: 04/26/17 09:31 Dose: 81 mg Atorvastatin Calcium (Lipitor) 20 mg PO DAILY [facility] Last Admin: 04/26/17 09:30 Dose: 20 mg Budesonide (Pulmicort Respules) 0.5 mg IH [id number] [facility] Last Admin: 04/27/17 08:43 Dose: 0.5 mg Clopidogrel Bisulfate (Plavix) 75 mg PO DAILY [facility] Last Admin: 04/26/17 09:31 Dose: 75 mg Fenofibrate (Tricor) 145 mg PO DAILY [facility] Last Admin: 04/26/17 09:31 Dose: 145 mg Furosemide (Lasix) 40 mg PO DAILY [facility] Last Admin: 04/26/17 09:30 Dose: 40 mg MAR Blood Pressure Document 04/26/17 09:30 JA (Rec: 04/26/17 09:30 JA [facility] [id number] Blood Pressure Blood Pressure (100/60-150/90) 132/64 Insulin Detemir (Levemir) 25 unit SC HS [facility] Last Admin: 04/26/17 22:32 Dose: 25 unit MAR Blood Glucose Document 04/26/17 22:32 MJ (Rec: 04/26/17 22:32 MJ [facility] [id number] Blood Glucose Finger Stick Blood Glucose (70-120) 233 Subcutaneous Administrations Document 04/26/17 22:32 MJ (Rec: 04/26/17 22:32 MJ [facility] [id number]) Injection Site MAR Injection Site Left Arm Charges for Administration # of Subcutaneous Administrations 1 Insulin Human Lispro (Humalog Low) 0 units SC [facility] PRN Reason: Protocol Last Admin: 04/27/17 08:07 Dose: 1 units MAR Blood Glucose Document 04/27/17 08:07 LMN (Rec: 04/27/17 09:07 LMN [facility] [id number]) Blood Glucose Finger Stick Blood Glucose (70-120) 197 Subcutaneous Administrations Document 04/27/17 08:07 LMN (Rec: 04/27/17 09:07 LMN [facility] [id number]) Injection Site MAR Injection Site Left Arm Charges for Administration # of Subcutaneous Administrations 1 Isosorbide Mononitrate (Imdur) 60 mg PO DAILY [facility] Last Admin: 04/26/17 09:30 Dose: 60 mg Levofloxacin (Levaquin) 500 mg PO DAILY [facility] PRN Reason: Protocol Last Admin: 04/26/17 09:31 Dose: 500 mg Methylprednisolone (Solu-Medrol) 20 mg IVP Q12 [facility] Last Admin: 04/26/17 22:33 Dose: 20 mg IVP Administration Document 04/26/17 22:33 MJ (Rec: 04/26/17 22:33 MJ [facility] [id number]) Charges for Administration # of IVP Administrations 1 Metoprolol Succinate (Toprol Xl) 50 mg PO DAILY [facility] Last Admin: 04/26/17 09:31 Dose: 50 mg MAR Pulse and Blood Pressure Document 04/26/17 09:31 JA (Rec: 04/26/17 09:31 JA [facility] [id number]) Pulse Pulse Rate (60-90) 88 Blood Pressure Blood Pressure (100/60-150/90) 132/64 Primidone (Mysoline) 50 mg PO 1000,1400,2200 [facility] Last Admin: 04/26/17 22:34 Dose: 50 mg Ropinirole HCl (Requip) 2 mg PO HS [facility] Last Admin: 04/26/17 22:33 Dose: 2 mg Tiotropium [place] (Spiriva) 18 mcg IH DAILY [facility] Last Admin: 04/26/17 09:32 Dose: 18 mcg Discontinued Medications Albuterol/Ipratropium (Duoneb 3 Mg/0.5 Mg (3 Ml) Ud) 3 ml IH ONCE STA Stop: 04/24/17 21:34 Last Admin: 04/24/17 21:58 Dose: 3 ml Albuterol/Ipratropium (Duoneb 3 Mg/0.5 Mg (3 Ml) Ud) 3 ml IH ONCE STA Stop: 04/24/17 23:41 Last Admin: 04/25/17 00:19 Dose: 3 ml Albuterol/Ipratropium (Duoneb 3 Mg/0.5 Mg (3 Ml) Ud) 3 ml IH Q4H PRN PRN Reason: Shortness of Breath Last Admin: 04/25/17 02:26 Dose: 3 ml Levofloxacin/Dextrose (Levaquin 750mg) 750 mg in 150 mls @ 100 mls/hr IV STAT STA PRN Reason: Protocol Stop: 04/25/17 00:59 Last Admin: 04/25/17 00:19 Dose: 100 mls/hr eMAR Start Stop Document 04/25/17 00:19 SS (Rec: 04/25/17 00:19 SS [id number]) Intravenous Solution Start Date 04/25/17 Start Time 00:19 Insulin Human Lispro (Humalog) 2 units SC ONCE ONE Stop: 04/25/17 03:13 Last Admin: 04/25/17 03:21 Dose: 2 units MAR Blood Glucose Document 04/25/17 03:21 TX (Rec: 04/25/17 03:21 TX [facility] [id number]) Blood Glucose Finger Stick Blood Glucose (70-120) 340 Subcutaneous Administrations Document 04/25/17 03:21 TX (Rec: 04/25/17 03:21 TX [facility] [id number]) Injection Site MAR Injection Site Right Abdomen Charges for Administration # of Subcutaneous Administrations 1 Methylprednisolone (Solu-Medrol) 125 mg IVP ONCE ONE Stop: 04/24/17 21:34 Last Admin: 04/24/17 22:02 Dose: 125 mg IVP Administration Document 04/24/17 22:02 SS (Rec: 04/24/17 22:02 SS [id number]) Charges for Administration # of IVP Administrations 1 Methylprednisolone (Solu-Medrol) 30 mg IVP Q12 [facility] Last Admin: 04/25/17 21:43 Dose: 30 mg IVP Administration Document 04/25/17 21:43 PCO (Rec: 04/25/17 21:43 PCO [facility] [id number]) Charges for Administration # of IVP Administrations 1 Non-Formulary Medication (Allopurinol) 300 mg PO DAILY [facility] Primidone (Mysoline) 50 mg PO HS [facility] Last Admin: 04/25/17 21:43 Dose: 50 mg Primidone (Mysoline) 50 mg PO ONCE ONE Stop: 04/25/17 11:19 Last Admin: 04/25/17 11:32 Dose: 50 mg Primidone (Mysoline) 50 mg PO TID [facility] Last Admin: 04/26/17 13:42 Dose: 50 mg Tiotropium [place] (Spiriva) 18,000 mcg IH DAILY [facility] - Scribe Statement The provider has reviewed the documentation as recorded by the Inder Escalante Provider Scribe Attestation: All medical record entries made by the Kellyibtanya were at my direction and personally dictated by me. I have reviewed the chart and agree that the record accurately reflects my personal performance of the history, physical exam, medical decision making, and the department course for this patient. I have also personally directed, reviewed, and agree with the discharge instructions and disposition. Disposition/Present on Arrival - Present on Arrival Any Indicators Present on Arrival: No History of DVT/PE: No History of Uncontrolled Diabetes: No Urinary Catheter: No History of Decub. Ulcer: No History Surgical Site Infection Following: CABG - Mediastinitis - Disposition Have Diagnosis and Disposition been Completed?: Yes Diagnosis: COPD exacerbation Disposition: HOSPITALIZED Disposition Time: :40 Patient Plan: Observation Patient Problems: Current Active Problems Problem Status Onset COPD exacerbation Acute Condition: STABLE
[2017-04-24] MEDS ORDERED: Albuterol-Ipratrop 3 mg / 0.5 (3 ml) UD IH STA ×2 (21:33→23:40)
[2017-04-24 22:02] LABS: HEMOGLOBIN 11.7 g/dL (12.0-16.0); MEAN CELL VOLUME 87.5 fl (80.0-105.0); MEAN CORPUSCULAR HEMOGLOBIN 29.3 pg (25.0-35.0); MEAN CORPUSCULAR HGB CONC 33.5 g/dl (31.0-37.0); MEAN PLATELET VOLUME 9.9 fl (7.0-11.0); RBC 3.99 10^6/uL (3.5-6.1); RED CELL DISTRIBUTION WIDTH 13.9 % (11.5-14.5); WHITE BLOOD COUNT 11.1 10^3/ul (4.5-11.0)
[2017-04-24 22:18] LABS: INR 0.97 (0.93-1.08); PARTIAL THROMBOPLASTIN TIME 29.3 Seconds (25.1-36.5); PROTHROMBIN TIME 11.1 SECONDS (9.4-12.5)
[2017-04-24 22:35] LABS: ALBUMIN 3.5 g/dL (3.0-4.8); ALT/SGPT 28 U/L (7-56); AST/SGOT 27 U/L (14-36); BLOOD UREA NITROGEN 18 mg/dL (7-21); CALCIUM 9.3 mg/dL (8.4-10.5); GFR AFRICAN-AMERICAN > 60; GFR NON-AFRICAN AMERICAN > 60
[2017-04-24 22:59] LABS: TROPONIN I < 0.01 ng/mL
[2017-04-24 23:03] LABS: B-TYPE NATRIURETIC PEPTIDE 133 pg/mL (0-450)
[2017-04-24] MEDS ORDERED: levoFLOXacin 750 mg in D5W 750 MG/150 ML BAG IV STA (23:30)
[2017-04-24] MEDS ORDERED: Albuterol-Ipratrop 3 mg / 0.5 (3 ml) UD IH PRN (23:44)
[2017-04-25] MEDS ORDERED: Insulin Lispro 1 UNITS/0.01 ML SC ONE (03:12)
[2017-04-25] MEDS ORDERED: Albuterol-Ipratrop 3 mg / 0.5 (3 ml) UD IH PRN (07:05)
[2017-04-25] MEDS: Budesonide 0.5 mg/2 ml Inhal Susp UD IH SCH ×2 (07:33→19:50)
[2017-04-25] MEDS: Albuterol-Ipratrop 3 mg / 0.5 (3 ml) UD IH SCH ×3 (08:00→19:50)
[2017-04-25] MEDS ORDERED: ALLOPURINOL 300 MG PO SCH (10:45)
[2017-04-25] MEDS ORDERED: Tiotropium 18 mcg Cap For Inhalation IH SCH (10:45)
--- NOTE | 2017-04-25 11:05 | RAD ---
HISTORY: sob COMPARISON: Chest x-rays performed 01/20/17, 12/22/16 TECHNIQUE: Chest, one view. FINDINGS: LUNGS: Hyperinflation may be seen in the setting of COPD. Peribronchial thickening and chronic appearing interstitial thickening/ changes re-identified. Biapical pleural thickening. Probable calcified granulomas. Please note that chest x-ray has limited sensitivity for the detection of pulmonary masses. PLEURA: No significant pleural effusion identified. No definite pneumothorax . CARDIOVASCULAR: Heart size appears within normal limits. Atherosclerotic calcifications of the aorta. OSSEOUS STRUCTURES: Degenerative changes. VISUALIZED UPPER ABDOMEN: Unremarkable. OTHER FINDINGS: None. IMPRESSION: COPD. Appearance consistent with chronic interstitial lung disease.
[2017-04-25] MEDS: MethylPREDNISolone 40 mg Vial IVP SCH ×2 (11:19→21:43)
[2017-04-25] MEDS: Metoprolol Succinate 50 mg XL Tab PO SCH (11:22)
[2017-04-25] MEDS: levoFLOXacin 500 MG TAB PO SCH (11:22)
[2017-04-25 11:32] LABS: HEMOGLOBIN 11.3 g/dL (12.0-16.0); MEAN CELL VOLUME 87.9 fl (80.0-105.0); MEAN CORPUSCULAR HEMOGLOBIN 29.1 pg (25.0-35.0); MEAN CORPUSCULAR HGB CONC 33.1 g/dl (31.0-37.0); MEAN PLATELET VOLUME 9.4 fl (7.0-11.0); RBC 3.88 10^6/uL (3.5-6.1); RED CELL DISTRIBUTION WIDTH 13.9 % (11.5-14.5); WHITE BLOOD COUNT 9.2 10^3/ul (4.5-11.0)
[2017-04-25] MEDS: Tiotropium 18 mcg Cap For Inhalation IH SCH (11:34)
[2017-04-25 11:50] LABS: ALB/GLOB RATIO 1.1 (1.1-1.8); ALBUMIN 3.9 g/dL (3.0-4.8); ALT/SGPT 28 U/L (7-56); AST/SGOT 32 U/L (14-36); BLOOD UREA NITROGEN 18 mg/dL (7-21); GFR AFRICAN-AMERICAN > 60; GFR NON-AFRICAN AMERICAN > 60
--- NOTE | 2017-04-25 12:06 | CON ---
DATE: 04/25/2017 REASON FOR CONSULTATION: Chronic obstructive pulmonary disease. REFERRING PHYSICIAN: Dr. Sher HISTORY OF PRESENT ILLNESS: The patient is a chronically ill 71-year-old female, with past medical history significant for advanced chronic obstructive pulmonary disease, on home oxygen, advanced interstitial lung disease, extensive coronary artery disease, status post multiple cardiac stents, diabetes mellitus, chronic anemia, who presents to [facility] with a 2-day history of worsening shortness of breath at rest, dyspnea on exertion, and cough. There is no history of significant sputum production. There is no history of chest pain, coughing up of blood, or chest pain - made worse with deep respirations. There is no history of temperatures, chills or infectious exposure. There is no history of night sweats, weight loss or appetite change prior to the above events. No history of leg or calf pains. No history of syncope or diaphoresis. No history of recent travel or trauma. REVIEW OF SYSTEMS: No history of nausea, vomiting or diarrhea. No acute urinary symptoms. No new neurologic or musculoskeletal complaints. Rest of the review of systems negative. ALLERGIES: IODINE, PENICILLIN AND AMBIEN. SOCIAL HISTORY: Positive for extensive tobacco usage. No alcohol. FAMILY HISTORY: No inheritable diseases. HOME MEDICATIONS: Not listed in the current chart. PHYSICAL EXAMINATION: GENERAL: The patient appears comfortable this morning. She is not short of breath at rest. VITAL SIGNS: Temperature is 98.9, pulse is approximately 90, respirations 18, blood pressure 154/63. Oxygen saturation on nasal cannula ranges between 94-97%. HEENT: Normocephalic, atraumatic. NECK: No JVD. CARDIOVASCULAR: Systolic ejection murmur at the lower left sternal border. No S3 gallop. LUNGS: Minimal crackles at the bases - chronic. Mild rhonchi and wheezing bilaterally are also appreciated. EXTREMITIES: No clubbing, cyanosis or edema. Calves are nontender to palpation. GI: Abdomen is soft, nontender and nondistended. Bowel sounds are positive. SKIN: acute rash. NEUROLOGIC: Exam limited at the present time. PERTINENT LABORATORY DATA: The chest x-ray was done late last night and reviewed. The chest x-ray does show chronic interstitial lung disease. The most current film is not significantly changed from the previous film. CBC: White count 11.1, hemoglobin 11.7, hematocrit 34.9, platelets of 293,000. Complete metabolic profile: Sodium 127, chloride 90, glucose 129. Rest of the metabolic profiles within normal limits. IMPRESSION: 1. Acute bronchitis. 2. Advanced chronic obstructive pulmonary disease, on home oxygen. 3. Advanced interstitial lung disease. 4. Advanced coronary artery disease. 5. Chronic anemia. PLAN: The patient presents to [facility] with a 2-day history of worsening pulmonary symptoms. As above, I did review the chest x-ray. The chest x-ray is not significantly changed from the previous film. On physical exam, there is mild bronchospasm noted. Oxygen saturation on nasal cannula is between 94-97%. I will start the patient on nebulizer treatments, inhaled Pulmicort, and low-dose intravenous steroids this morning. Because of her age and above diagnoses, I will also start oral antibiotic therapy. There are no temperatures by history. The patient does feel better and is clinically improved this morning - compared to the past few days. Additional pulmonary intervention will be based on the clinical status of the patient. I will discuss the above with Dr. Sher this morning. Thank you very much for this pulmonary consultation. Randell Becker MD MTDVinny
--- NOTE | 2017-04-25 15:57 | CARD ---
APPROVED REPORT EKG Measurement Heart [id number] <Conclusion> Normal sinus rhythm Septal infarct, age undetermined Abnormal ECG
[2017-04-25] MEDS: Insulin Detemir 100 units/ml Vial (Levemir) SC SCH (21:45)
[2017-04-26] MEDS: Albuterol-Ipratrop 3 mg / 0.5 (3 ml) UD IH SCH ×4 (01:24→20:46)
--- NOTE | 2017-04-26 06:49 | HP ---
HISTORY OF PRESENT ILLNESS: The patient is a 71-year-old white female who came to the emergency room because of increasing shortness of breath. The patient states he has been using a nebulizer and oxygen without any significant relief. It has been going on for almost a week, got worse last night, so she came today. PAST MEDICAL HISTORY: 1. She has significant past medical history of intermittent COPD. She is on home oxygen. Has been using nebulizer machine. 2. Coronary artery disease, status post angioplasty. 3. History of benign essential tremor. 4. Non-insulin dependent diabetes. 5. Pulmonary fibrosis with interstitial lung disease. 6. Hypertension. 7. Hyperlipidemia. 8. Coronary artery disease. ALLERGIES: THE PATIENT IS ALLERGIC TO FISH, IODINE, OXAPROZIN, PENICILLIN, AND AMBIEN. MEDICATIONS AT HOME: The patient is on, 1. Lisinopril 30 mg daily. 2. Albuterol. 3. Daliresp. 4. Mysoline. 5. Plavix 75 daily. 6. Allopurinol 300 daily. 7. Lasix 40 mg daily. 8. TriCor 145 mg daily. 9. Isosorbide 60 mg daily. 10. Levemir 35 units at bedtime. 11. Metoprolol 50 mg daily. 12. ProAir. 13. Spiriva. 14. Lipitor 20 mg daily. 15. Mysoline 150 daily. 16. Requip 2 mg at bedtime. SOCIAL HISTORY: She is and lives with her . Quit smoking six years ago, but used to be a very heavy smoker. Socially drinks. REVIEW OF SYSTEMS: Significant for generalized weakness, lethargy, and shortness of breath. PHYSICAL EXAMINATION: GENERAL: On examination, the patient is awake, alert, and oriented. Able to communicate. VITAL SIGNS: She is afebrile. Pulse 99, respirations 20, blood pressure 140/78. HEART: S1 and S2 audible. LUNGS: Bilateral fair airflow. No rhonchi or crackles. Bilateral diffusely decreased breath sounds. ABDOMEN: Soft and nontender. No rebound and no guarding. NEUROLOGIC: She is awake and alert. Able to communicate. EXTREMITIES: Bilateral upper extremity tremor. LABORATORY DATA: WBC is 9.3, hemoglobin 11.3, hematocrit 34, and platelets of 262. Chemistry: Sodium 130, potassium 4.6, chloride 89, CO2 of 29, BUN 18, creatinine 0.7, blood sugar of 270. ASSESSMENT: 1. Chronic obstructive pulmonary disease exacerbation. 2. Hypoxia. 3. Bronchospasm. 4. Coronary artery disease. 5. [id number] diabetes. PLAN: The patient is admitted to telemetry. Received IV fluids, IV steroids, nebulizer treatment. Monitor blood sugar. Restart her medications, pulmonary consult by Dr. Becker has been requested. We will follow the patient with you. Ten Sher MD
[2017-04-26 07:54] LABS: BLOOD UREA NITROGEN 27 mg/dL (7-21); CALCIUM 9.4 mg/dL (8.4-10.5); GFR AFRICAN-AMERICAN > 60; GFR NON-AFRICAN AMERICAN > 60
[2017-04-26] MEDS: Budesonide 0.5 mg/2 ml Inhal Susp UD IH SCH ×2 (08:10→20:46)
--- NOTE | 2017-04-26 09:21 | PN ---
DATE: 04/26/2017 SUBJECTIVE: The patient appears comfortable this morning. She is not short of breath at rest. PHYSICAL EXAMINATION: VITALS: Temperature is 98.0, pulse 91, respirations 18/20, blood pressure 146/69. Oxygen saturation on nasal cannula is 98%. HEENT: Normocephalic, atraumatic. No JVD. CARDIOVASCULAR: Systolic ejection murmur at the lower left sternal border. No S3 gallop. LUNGS: Minimal basilar crackles - chronic. Less rhonchi. No wheezing. EXTREMITIES: No clubbing, cyanosis or edema. Calves are nontender to palpation. GI: Abdomen is soft, nontender, nondistended. Bowel sounds are positive. SKIN: No acute rash. NEUROLOGIC: Limited at the present time. IMPRESSION: 1. Acute bronchitis. 2. Advanced chronic obstructive pulmonary disease. 3. Advanced interstitial lung disease. 4. Advanced coronary artery disease. 5. Chronic anemia. PLAN: The patient appears comfortable this morning. She is not short of breath at rest. She does state to feeling much better overall. On physical exam, her bronchospasm is definitely less. In addition, the oxygen saturation on nasal cannula is now 98%. I will continue the current nebulizer treatments and decrease the intravenous steroids this morning. The patient remains on oral antibiotic therapy. There are no temperatures noted. There is no leukocytosis. Clinical status of the patient is significantly improved. The patient is advised to be out of bed as much as possible. I will discuss the above with Dr. Sher. Randell Becker MD DIAMANTE
[2017-04-26] MEDS: MethylPREDNISolone 40 mg Vial IVP SCH ×2 (09:30→22:33)
[2017-04-26] MEDS: levoFLOXacin 500 MG TAB PO SCH (09:31)
[2017-04-26] MEDS: Metoprolol Succinate 50 mg XL Tab PO SCH (09:31)
[2017-04-26] MEDS: Tiotropium 18 mcg Cap For Inhalation IH SCH (09:32)
[2017-04-26] MEDS: Insulin Lispro (humaLOG) LOW Coverage SC SCH (18:23)
[2017-04-26] MEDS: Insulin Detemir 100 units/ml Vial (Levemir) SC SCH (22:32)
[2017-04-27] MEDS: Albuterol-Ipratrop 3 mg / 0.5 (3 ml) UD IH SCH ×4 (01:21→20:40)
[2017-04-27] MEDS: Insulin Lispro (humaLOG) LOW Coverage SC SCH ×5 (01:43→22:24)
[2017-04-27 07:24] LABS: BASO # 0.02 K/mm3 (0.0-2.0); BASO % 0.2 % (0.0-3.0); EOS % 0.2 % (1.5-5.0); GRAN # 6.17 (1.4-6.5); GRAN % 69.7 % (50.0-68.0); HEMOGLOBIN 10.4 g/dL (12.0-16.0); LYMPH # 1.7 (1.2-3.4); LYMPH % 18.9 % (22.0-35.0); MEAN CELL VOLUME 90.7 fl (80.0-105.0); MEAN CORPUSCULAR HEMOGLOBIN 28.4 pg (25.0-35.0); MEAN CORPUSCULAR HGB CONC 31.3 g/dl (31.0-37.0); MEAN PLATELET VOLUME 9.8 fl (7.0-11.0); RBC 3.66 10^6/uL (3.5-6.1); WHITE BLOOD COUNT 8.9 10^3/ul (4.5-11.0)
[2017-04-27 07:50] LABS: ALB/GLOB RATIO 1.2 (1.1-1.8); ALBUMIN 3.5 g/dL (3.0-4.8); ALT/SGPT 24 U/L (7-56); AST/SGOT 36 U/L (14-36); BLOOD UREA NITROGEN 32 mg/dL (7-21); CALCIUM 9.1 mg/dL (8.4-10.5); GFR AFRICAN-AMERICAN > 60; GFR NON-AFRICAN AMERICAN > 60
[2017-04-27] MEDS: Budesonide 0.5 mg/2 ml Inhal Susp UD IH SCH ×2 (08:43→20:40)
--- NOTE | 2017-04-27 08:55 | PN ---
DATE: 04/26/2017 SUBJECTIVE: The patient is 71 years old, seen and examined, sitting in a chair, seems to be comfortable. Her tremors have subsided significantly. Her shortness of breath has improved. Still has scanty, but productive cough. PHYSICAL EXAMINATION: VITAL SIGNS: She is afebrile, pulse 80, respirations 20, and blood pressure 132/64. LUNGS: Bilateral diffusely decreased breath sounds. Soft crackles at bases. HEART: S1 and S2 audible. ABDOMEN: Soft, nontender. No rebound. No guarding. NEUROLOGIC: She is awake, alert and oriented, communicative. EXTREMITIES: Bilateral legs +1 edema. LABORATORY EXAM: Reveals sodium 127, potassium 5.1, chloride 86, CO2 of 33, BUN 27, creatinine 0.9, blood sugar of 151. ASSESSMENT AND PLAN: 1. Asthmatic bronchitis. 2. Bronchospasm. 3. Hypoxia. 4. Chronic obstructive pulmonary disease. 5. Coronary artery disease, status post angioplasty. 6. Non-insulin dependent diabetes. 7. Restless leg syndrome. 8. Benign essential tremors. PLAN: The patient is currently on p.o. Levaquin. She is getting nebulizer treatment. She is on prednisone 20 mg q.12. Continue to monitor. Physical therapy evaluation has been requested. We will reevaluate in the morning. Ten Sher MD
--- NOTE | 2017-04-27 09:26 | PN ---
DATE: 04/27/2017 SUBJECTIVE: The patient appears very comfortable this morning. She is not short of breath at rest. PHYSICAL EXAMINATION: VITALS: Temperature is 97.8, pulse 68, respirations 18, blood pressure 146/59. Oxygen saturation on nasal cannula is 100%. HEENT: Normocephalic, atraumatic. No JVD. CARDIOVASCULAR: Systolic ejection murmur at the lower left sternal border. No S3 gallop. LUNGS: Minimal basilar crackles - chronic. Minimal/less rhonchi. No wheezing. EXTREMITIES: No clubbing, cyanosis or edema. Calves are nontender to palpation. GI: Abdomen is soft, nontender, nondistended. Bowel sounds are positive. SKIN: No acute rash. NEUROLOGIC: Limited at the present time. IMPRESSION: 1. Acute bronchitis. 2. Advanced chronic obstructive pulmonary disease. 3. Advanced interstitial lung disease. 4. Advanced coronary artery disease. 5. Chronic anemia. PLAN: The patient appears very comfortable this morning. She is not short of breath at rest. She does state to feeling much better overall. On physical exam, her bronchospasm continues to slowly resolve. In addition, the oxygen saturation on nasal cannula is now 100%. I will continue with the current nebulizer treatments and low-dose intravenous steroids (decreased yesterday) for now. I have also discussed the case with the night nurse at length. I did ask the night nurse to have physical therapy see the patient. Clinical status of the patient is significantly improved. I will discuss the above with the attending physician. Randell Becker MD MTDVinny
--- NOTE | 2017-04-27 10:55 | IP.NPCORE ---
COPD Progress Note - COPD Progress Note Symptoms:: Increase in Dyspnea Initial CXR:: COPD Date:: 04/24/17 Nebulizers Q2-4 hrs:: Duonebs/Albuterol Therapy Antibiotics (Name/Dose/Frequency):: Levaquin 500mg Daily Systemic Steroids w/ methylprednisolone Name/Dose/Frequency:: Solumedrol 20mg q12h Oxygen Delivery Method: Nasal Cannula Smoking cessation counseling all stages copd exacerbation: No (former smoker)
[2017-04-27] MEDS: Metoprolol Succinate 50 mg XL Tab PO SCH (11:58)
[2017-04-27] MEDS: Tiotropium 18 mcg Cap For Inhalation IH SCH (11:58)
[2017-04-27] MEDS: MethylPREDNISolone 40 mg Vial IVP SCH ×2 (11:59→21:38)
[2017-04-27] MEDS: levoFLOXacin 500 MG TAB PO SCH (11:59)
[2017-04-27 17:27] VITALS: O2SAT 96
--- NOTE | 2017-04-27 21:27 | PN ---
DATE: SUBJECTIVE: The patient is a 71-year-old, seen and examined, sitting in chair, seems to be comfortable. No nausea, vomiting, or diarrhea. Eating and tolerating. Her tremors are significantly improved. Shortness of breath has improved. PHYSICAL EXAMINATION: VITAL SIGNS: She is afebrile, pulse 80, respirations 18, and blood pressure 117/55. LUNGS: Bilateral diffusely decreased breath sounds. Few expiratory rhonchi. HEART: S1 and S2 audible. ABDOMEN: Soft, nontender. No rebound. No guarding. NEUROLOGIC: She is awake, alert, oriented, and able to communicate. LABORATORY DATA: WBC is 8.9, hemoglobin 10.4, hematocrit 33.2 and platelets 244. Chemistry; sodium 125, potassium 4.6, chloride 82, CO2 of 40, BUN 32, creatinine 0.9, and blood sugar of 325. Blood cultures are negative. ASSESSMENT: 1. Chronic obstructive pulmonary disease exacerbation. 2. Bronchospasm. 3. Coronary artery disease. 4. Hypertension. 5. Hyperlipidemia. 6. History of benign tremor. 7. Insulin-dependent diabetes. PLAN: Hold Lasix for today for hyponatremia and we will monitor electrolyte. TCU evaluation has been requested. If the patient is accepted, she can be transferred to TCU. Ten Sher MD
[2017-04-27] MEDS: Insulin Detemir 100 units/ml Vial (Levemir) SC SCH (21:38)
[2017-04-28] MEDS: Albuterol-Ipratrop 3 mg / 0.5 (3 ml) UD IH SCH ×3 (01:20→14:43)
[2017-04-28] MEDS: Budesonide 0.5 mg/2 ml Inhal Susp UD IH SCH (08:00)
[2017-04-28 08:18] VITALS: PULSE 78; RESP 20; TEMP 97.6
--- NOTE | 2017-04-28 08:23 | PN ---
DATE: 04/28/2017 PULMONARY PROGRESS NOTE SUBJECTIVE: The patient appears very comfortable this morning. She is not short of breath at rest. PHYSICAL EXAMINATION: VITAL SIGNS: Temperature is 98.3, pulse is 88, respirations are 18, and blood pressure is 117/55. Oxygen saturation on nasal cannula is between 96% to 100%. HEENT: Normocephalic and atraumatic. NECK: No JVD. CARDIOVASCULAR: Systolic ejection murmur at the lower left sternal border. No S3 gallop. LUNGS: Minimal basilar crackles - chronic. Minimal/less rhonchi. No wheezing. EXTREMITIES: No clubbing, cyanosis or edema. Calves are nontender to palpation. GASTROINTESTINAL: Abdomen is soft, nontender and nondistended. Bowel sounds are positive. SKIN: No acute rash. NEUROLOGIC: Exam is limited at the present time. IMPRESSION 1. Acute bronchitis. 2. Advanced chronic obstructive pulmonary disease. 3. Advanced interstitial lung disease. 4. Advanced coronary artery disease. 5. Chronic anemia. PLAN: The patient appears very comfortable this morning. She is not short of breath at rest. She does state to feeling much better overall. On physical exam, her bronchospasm is certainly less. In addition, the oxygen saturation on nasal cannula is 97%-100%. I will continue the current nebulizer treatments and low-dose intravenous steroids (decreased yesterday) for now. The patient remains on antibiotic therapy. There are no temperatures noted. The leukocytosis has resolved. Clinical status of the patient is significantly improved - compared to the initial presentation. I would continue with the physical therapy input. I will discuss the above with the attending physician. Randell Becker MD DIAMANTE
[2017-04-28] MEDS: Insulin Lispro (humaLOG) LOW Coverage SC SCH ×2 (08:27→12:25)
[2017-04-28] MEDS: Tiotropium 18 mcg Cap For Inhalation IH SCH (11:02)
[2017-04-28] MEDS: Metoprolol Succinate 50 mg XL Tab PO SCH (11:03)
[2017-04-28] MEDS: levoFLOXacin 500 MG TAB PO SCH (11:04)
[2017-04-28 11:06] VITALS: BP 122/78
--- NOTE | 2017-04-29 08:44 | DS ---
HISTORY OF PRESENT ILLNESS: The patient is a [id number] female who came to Emergency Room because of increasing shortness of breath, cough and congestion productive, and increasing shortness of breath on minimal walking. PHYSICAL EXAMINATION: GENERAL: Today, the patient is awake, alert, oriented, and communicative. VITAL SIGNS: She is afebrile, pulse is 70, respirations are 20, and blood pressure is 122/78. LUNGS: Bilateral fair airflow. No rhonchi or crackle. HEART: S1 and S2, audible. ABDOMEN: Soft and nontender. No rebound and no guarding. NEUROLOGIC: The patient is awake, alert and communicative. EXTREMITIES: Bilateral leg +1 edema. LABORATORY DATA: WBC is 8.9, hemoglobin is 10.4, hematocrit is 33.2, and platelets are 244. Chemistry: Blood sugar is 293. is negative. ASSESSMENT AND PLAN: 1. Chronic obstructive pulmonary disease exacerbation. 2. Bronchospasm. 3. Asthmatic bronchitis. 4. Coronary artery disease. 5. Benign essential tremor. 6. Deconditioning and difficulty walking. PLAN: The patient is being transferred to TCU. We will taper down . Continue nebulizer treatment and get physical therapy. We will follow up the patient in a.m. Ten Sher MD
== END 2017-04-28 15:57 | DRG 191 ==
LOC: ED 20:49 → ERH 23:41 → 5RSO 04-25 01:32 → OBSVTOIN 04-25 17:46
PROVIDERS: ADMIT Internal Medicine; ATTEND Internal Medicine
DX: J44.1 Chronic obstructive pulmonary disease with (acute) exacerbation (principal); E87.1 Hypo-osmolality and hyponatremia; J84.10 Pulmonary fibrosis, unspecified; Z99.81 Dependence on supplemental oxygen; D64.9 Anemia, unspecified; E11.9 Type 2 diabetes mellitus without complications; E78.5 Hyperlipidemia, unspecified; G25.0 Essential tremor; J20.9 Acute bronchitis, unspecified; J44.0 Chronic obstructive pulmonary disease with (acute) lower respiratory infection; G25.81 Restless legs syndrome; I10 Essential (primary) hypertension; I25.10 Atherosclerotic heart disease of native coronary artery without angina pectoris; R09.02 Hypoxemia; Z79.02 Long term (current) use of antithrombotics/antiplatelets; Z79.4 Long term (current) use of insulin; Z79.82 Long term (current) use of aspirin; Z79.899 Other long term (current) drug therapy; Z87.11 Personal history of peptic ulcer disease; Z87.891 Personal history of nicotine dependence; Z90.710 Acquired absence of both cervix and uterus; Z95.5 Presence of coronary angioplasty implant and graft; Z88.8 Allergy status to other drugs, medicaments and biological substances; Z87.892 Personal history of anaphylaxis; Z88.0 Allergy status to penicillin; Z91.013 Allergy to seafood; R40.2412 Glasgow coma scale score 13-15, at arrival to emergency department

== ENCOUNTER 2017-05-15 23:17 | Emergency (ER) | payer MEDICARE, MEDICAID ==
[2017-05-15 23:17] VITALS: BMI 27.8
[2017-05-16 00:11] VITALS: BP 180/88; PULSE 83; RESP 19; TEMP 99; O2SAT 97
--- NOTE | 2017-05-16 00:16 | ED PDOC ---
Arrival/HPI - General Chief Complaint: High Blood Sugar Time Seen by Provider: 05/15/17 23:58 Historian: Patient - History of Present Illness Narrative History of Present Illness (Text): 05/16/17 00:06 Mandy Miranda is a 71 year old female, whose past medical history includes COPD , pulmonary fribrosism, hypertension, CAD with multiple coronary stents, and peptic ulcer disease, who presents to the emergency department brought in by family complaining of hyperglycemia tonight. Patient states she took her blood sugar tonight prior to taking her insulin, noted the glucometer read > 600. Patient states she feels fine otherwise, but presented for further evaluation. Fingerstick in ER was 430. Patient was recently discharged yesterday at 12:00 and blood sugar was normal.Patient states she may have missed a dose. Patient denies any fever, chills, chest pain, shortness of breath, nausea, vomiting, diarrhea, back pain, neck pain, headache, dizziness, or any other complaints. Time/Duration: Other (tonight) Symptom Onset: Gradual Symptom Course: Unchanged Activities at Onset: Light Context: Home Past Medical History - Provider Review Nursing Documentation Reviewed: Yes - Infectious Disease Hx of Infectious Diseases: None - Tetanus Immunization Tetanus Immunization: Unknown - Cardiac Hx Cardiac Disorders: Yes (CAD) - Pulmonary Hx Chronic Obstructive Pulmonary Disease (COPD): Yes - Neurological HX Cerebrovascular Accident: No - HEENT Hx HEENT Disorder: Yes Hx Cataracts: Yes - Renal Hx Renal Failure: Yes - Endocrine/Metabolic Hx Diabetes Mellitus Type 2: Yes - Hematological/Oncological Hx Hepatitis B: Yes - Integumentary Hx Dermatological Disorder: Yes - Musculoskeletal/Rheumatological Hx Falls: No - Gastrointestinal Hx Gastrointestinal Disorders: Yes (VENTRAL HERNIA) - Genitourinary/Gynecological Hx Reproductive Disorders: No - Psychiatric Hx Substance Use: No - Surgical History Hx Coronary Stent: Yes (X9) Hx Hysterectomy: Yes (partial) - Anesthesia Hx Anesthesia Reactions: No Hx Malignant Hyperthermia: No - Suicidal Assessment Feels Threatened In Home Enviroment: No Family/Social History - Physician Review Nursing Documentation Reviewed: Yes Family/Social History: Unknown Family HX Smoking Status: Former Smoker Hx Alcohol Use: No Hx Substance Use: No Hx Substance Use Treatment: No Allergies/Home Meds Allergies/Adverse Reactions: Allergies FISH Allergy (Severe, Verified 05/16/17 00:12) THROAT SWELLING iodine Allergy (Verified 05/16/17 00:12) RASH oxaprozin [From Daypro] Allergy (Verified 05/16/17 00:12) RASH Penicillins Allergy (Verified 05/16/17 00:12) ANAPHYLAXIS zolpidem [From Ambien] Adverse Reaction (Intermediate, Verified 05/16/17 00:12) FATIGUE Fatigue and hallucinations. Home Medications: Home Meds Medication Instructions Recorded Confirmed Unobtainable 05/16/17 05/16/17 Review of Systems - Physician Review All systems were reviewed & negative as marked: Yes - Review of Systems Constitutional: Normal Eyes: Normal ENT: Normal Respiratory: Normal. absent: SOB, Cough Cardiovascular: Normal. absent: Chest Pain, Palpitations Gastrointestinal: Normal. absent: Abdominal Pain, Diarrhea, Nausea Genitourinary Female: Normal. absent: Dysuria, Frequency, Hematuria, Urine Output Changes Musculoskeletal: Normal. absent: Back Pain, Neck Pain Skin: Normal. absent: Rash Neurological: Normal. absent: Headache, Dizziness Endocrine: Other (+hyperglycemia) Hemo/Lymphatic: Normal Psychiatric: Normal Physical Exam Vital Signs Reviewed: Yes Vital Signs Temp Pulse Resp BP Pulse Ox 05/16/17 00:05 99 F 83 19 180/88 H 97 Temperature: Afebrile Blood Pressure: Hypertensive Pulse: Regular Respiratory Rate: Normal Appearance: Positive for: Well-Appearing, Non-Toxic, Comfortable Pain Distress: None Mental Status: Positive for: Alert and Oriented X 3 - Systems Exam Head: Present: Atraumatic, Normocephalic Pupils: Present: PERRL Extroacular Muscles: Present: EOMI Conjunctiva: Present: Normal Mouth: Present: Moist Mucous Membranes Neck: Present: Normal Range of Motion Respiratory/Chest: Present: Decreased Breath Sounds (decreased breath sounds bilaterally). No: Respiratory Distress, Accessory Muscle Use Cardiovascular: Present: Regular Rate and Rhythm, Normal S1, S2. No: Murmurs Abdomen: Present: Normal Bowel Sounds. No: Tenderness, Distention, Peritoneal Signs Back: Present: Normal Inspection Upper Extremity: Present: Normal Inspection. No: Cyanosis, Edema Lower Extremity: Present: Normal Inspection. No: Edema Neurological: Present: GCS=15, CN II-XII Intact, Speech Normal Skin: Present: Warm, Dry, Normal Color. No: Rashes Psychiatric: Present: Alert, Oriented x 3, Normal Insight, Normal Concentration Medical Decision Making ED Course and Treatment: 05/16/17 00:19 Impression: 71 year old female presents to the emergency department with hyperglycemia. Differential Diagnosis included but are not limited to: hyperglycemia vs. diabetes mellitus Plan: -- Labs -- Reassess and disposition Prior Visits: Notes and results from previous visits were reviewed. Patient was last seen in the emergency department on 05/11/17 for COPD and was admitted for further evaluation. Progress Notes: 05/16/17 04:11 On re-evaluation, patient remain asymptomatic. Glucose: 284. Discussed results and plan with patient who expresses understanding. All questions answered and there is agreement with the plan to discharge home with instructions. Patient stable for discharge. Return if symptoms persist or worsen - Lab Interpretations Lab Results: 05/16/17 00:30 05/16/17 00:30 Lab Results 05/16/17 03:48: POC Glucose (mg/dL) 284 H 05/16/17 00:30: WBC 14.4 H, RBC 4.24, Hgb 12.2, Hct 39.2, MCV 92.5, MCH 28.8, MCHC 31.1, RDW 14.5, Plt Count 531 H, MPV 9.7 05/16/17 00:30: Sodium 131 L, Potassium 4.5, Chloride 82 L, Carbon Dioxide 37 H , Anion Gap 16, BUN 38 H, Creatinine 0.8, Est GFR ( Amer) > 60, Est GFR ( Non-Af Amer) > 60, Random Glucose 477 H* D, Calcium 10.0, Total Bilirubin 0.5, AST 25, ALT 29, Alkaline Phosphatase 78, Total Protein 7.6, Albumin 3.8, Globulin 3.8, Albumin/Globulin Ratio 1.0 L I have reviewed the lab results: Yes - Medication Orders Current Medication Orders: Discontinued Medications Insulin Human Regular (Humulin R) 10 units SC STAT STA Stop: 05/16/17 02:01 Last Admin: 05/16/17 02:16 Dose: 10 units MAR Blood Glucose Document 05/16/17 02:16 RD (Rec: 05/16/17 02:16 RD [id number]) Blood Glucose Finger Stick Blood Glucose (70-120) 477 Subcutaneous Administrations Document 05/16/17 02:16 RD (Rec: 05/16/17 02:16 RD [id number]) Injection Site MAR Injection Site Right Arm Charges for Administration # of Subcutaneous Administrations 1 - Scribe Statement The provider has reviewed the documentation as recorded by the Inder Jeffries training under Gayatri Escalante All medical record entries made by the Inder were at my direction and personally dictated by me. I have reviewed the chart and agree that the record accurately reflects my personal performance of the history, physical exam, medical decision making, and the department course for this patient. I have also personally directed, reviewed, and agree with the discharge instructions and disposition. Disposition/Present on Arrival - Present on Arrival Any Indicators Present on Arrival: No History of DVT/PE: No History of Uncontrolled Diabetes: No Urinary Catheter: No History Surgical Site Infection Following: None - Disposition Have Diagnosis and Disposition been Completed?: Yes Diagnosis: Diabetes, Hyperglycemia Disposition: HOME/ ROUTINE Disposition Time: 04:11 Patient Plan: Discharge Patient Problems: Current Active Problems Problem Status Onset Diabetes Acute Hyperglycemia Acute Condition: GOOD Additional Instructions: Maintain proper diet/maintain proper insulin doses/follow up with your doctor this week Forms: [employer] (Malagasy)
[2017-05-16 01:00] LABS: HEMOGLOBIN 12.2 g/dL (12.0-16.0); MEAN CELL VOLUME 92.5 fl (80.0-105.0); MEAN CORPUSCULAR HEMOGLOBIN 28.8 pg (25.0-35.0); MEAN CORPUSCULAR HGB CONC 31.1 g/dl (31.0-37.0); MEAN PLATELET VOLUME 9.7 fl (7.0-11.0); RBC 4.24 10^6/uL (3.5-6.1); RED CELL DISTRIBUTION WIDTH 14.5 % (11.5-14.5); WHITE BLOOD COUNT 14.4 10^3/ul (4.5-11.0)
[2017-05-16 01:36] LABS: ALBUMIN 3.8 g/dL (3.0-4.8); ALT/SGPT 29 U/L (7-56); AST/SGOT 25 U/L (14-36); BLOOD UREA NITROGEN 38 mg/dL (7-21); GFR AFRICAN-AMERICAN > 60; GFR NON-AFRICAN AMERICAN > 60
[2017-05-16] MEDS ORDERED: Insulin Regular 1 UNITS/0.01 ML ML SC STA (02:00)
== END 2017-05-16 04:35 | disposition home or self-care (01) ==
LOC: ED 23:17
DX: E11.65 Type 2 diabetes mellitus with hyperglycemia (principal); Z79.4 Long term (current) use of insulin; I25.10 Atherosclerotic heart disease of native coronary artery without angina pectoris; I10 Essential (primary) hypertension; Z95.5 Presence of coronary angioplasty implant and graft; Z87.891 Personal history of nicotine dependence

== ENCOUNTER 2017-08-09 06:21 | Inpatient (IN) | payer MEDICARE, MEDICAID ==
[2017-08-09 06:22] VITALS: BMI 27.8
--- NOTE | 2017-08-09 06:32 | ED PDOC ---
Arrival/HPI - General Chief Complaint: Respiratory Distress Time Seen by Provider: 08/09/17 06:24 Historian: Patient - History of Present Illness Narrative History of Present Illness (Text): 08/09/17 06:32 Mandy Miranda is a 72 year old female, whose past medical history includes COPD, pulmonary fibrosis, diabetes, hypertension, CAD with multiple coronary stents, hyponatremia, and peptic ulcer disease, who presents to the Emergency department brought in by EMS for shortness of breath. Relative states patient has been experiencing progressively worsening shortness of breath since yesterday evening. Patient was given nebulizer treatments en route by EMS. Relative also reports patient has been lethargic with altered mental status since yesterday evening., notes patient has "mixed" her medications in the past and may have over-medicated herself. Limited HPI and ROS secondary to patient's altered mental status/lethargy. PMD: Dr. Jessica Sherman Symptom Onset: Gradual Symptom Course: Unchanged Activities at Onset: Light Context: Home Past Medical History - Provider Review Nursing Documentation Reviewed: Yes - Infectious Disease Hx of Infectious Diseases: None - Tetanus Immunization Tetanus Immunization: Unknown - Cardiac Hx Cardiac Disorders: Yes (CAD) - Pulmonary Hx Chronic Obstructive Pulmonary Disease (COPD): Yes - Neurological HX Cerebrovascular Accident: No - HEENT Hx HEENT Disorder: Yes Hx Cataracts: Yes - Renal Hx Renal Failure: Yes - Endocrine/Metabolic Hx Diabetes Mellitus Type 2: Yes - Hematological/Oncological Hx Hepatitis B: Yes - Integumentary Hx Dermatological Disorder: Yes - Musculoskeletal/Rheumatological Hx Falls: No - Gastrointestinal Hx Gastrointestinal Disorders: Yes (VENTRAL HERNIA) - Genitourinary/Gynecological Hx Reproductive Disorders: No - Psychiatric Hx Substance Use: No - Surgical History Hx Coronary Stent: Yes (X9) Hx Hysterectomy: Yes (partial) - Anesthesia Hx Anesthesia Reactions: No Hx Malignant Hyperthermia: No - Suicidal Assessment Feels Threatened In Home Enviroment: No Family/Social History - Physician Review Nursing Documentation Reviewed: Yes Family/Social History: Unknown Family HX Smoking Status: Former Smoker Hx Alcohol Use: No Hx Substance Use: No Hx Substance Use Treatment: No Allergies/Home Meds Allergies/Adverse Reactions: Allergies FISH Allergy (Severe, Verified 05/16/17 00:12) THROAT SWELLING iodine Allergy (Verified 05/16/17 00:12) RASH oxaprozin [From Daypro] Allergy (Verified 05/16/17 00:12) RASH Penicillins Allergy (Verified 05/16/17 00:12) ANAPHYLAXIS zolpidem [From Ambien] Adverse Reaction (Intermediate, Verified 05/16/17 00:12) FATIGUE Fatigue and hallucinations. Home Medications: Home Meds Medication Instructions Recorded Confirmed ALPRAZolam [Xanax] 0.25 mg PO TID 08/09/17 08/09/17 Albuterol Sulfate [Ventolin Hfa] 2 puff INH PRN PRN 08/09/17 08/09/17 Allopurinol [Zyloprim] 300 mg PO DAILY 08/09/17 08/09/17 Aspirin [Ecotrin] 81 mg PO DAILY 08/09/17 08/09/17 Atorvastatin Calcium [Atorvastatin 20 mg PO DAILY 08/09/17 08/09/17 Calcium] Clopidogrel [Plavix] 75 mg PO DAILY 08/09/17 08/09/17 Furosemide [Lasix] 40 mg PO DAILY 08/09/17 08/09/17 Gabapentin [Neurontin] 200 mg PO TID 08/09/17 08/09/17 Insulin Detemir [Levemir] 25 unit SC HS 08/09/17 08/09/17 Isosorbide Mononitrate [Imdur] 60 mg PO DAILY 08/09/17 08/09/17 Lisinopril [Zestril] 30 mg PO DAILY 08/09/17 08/09/17 Metoprolol Succinate [Toprol Xl] 50 mg PO DAILY 08/09/17 08/09/17 Ropinirole HCl [Requip] 3 mg PO HS 08/09/17 08/09/17 Tiotropium [place] Inhaler 18 mcg INH DAILY 08/09/17 08/09/17 [Spiriva Inhalation Handihaler Device] Review of Systems - Review of Systems Systems not reviewed;Unavailable: Altered Mental Status Constitutional: Other (+lethargy) Respiratory: SOB Physical Exam Vital Signs Reviewed: Yes Vital Signs Temp Pulse Resp BP Pulse Ox 08/09/17 10:51 107 H 08/09/17 10:50 105 H 35 H 96 08/09/17 10:49 107 H 08/09/17 10:46 108 H 25 H 130/74 92 L 08/09/17 10:42 92 L 08/09/17 10:21 98 F 98 H 18 116/51 L 98 08/09/17 09:18 102 H 20 119/51 L 100 08/09/17 08:31 102 H 16 113/47 L 100 08/09/17 07:44 113 H 16 142/77 97 08/09/17 07:29 111 H 16 127/67 98 08/09/17 07:08 117 H 22 155/100 H 98 08/09/17 07:03 229/125 H 08/09/17 06:45 97.8 F 126 H 26 H 229/125 H 100 08/09/17 06:30 24 100 Temperature: Afebrile Blood Pressure: Hypertensive Pulse: Tachycardic Pain Distress: None Mental Status: Positive for: Lethargic - Systems Exam Head: Present: Atraumatic, Normocephalic Pupils: Present: PERRL Extroacular Muscles: Present: EOMI Conjunctiva: Present: Normal Mouth: Present: Moist Mucous Membranes Neck: Present: Normal Range of Motion Respiratory/Chest: Present: Rhonchi. No: Accessory Muscle Use Cardiovascular: Present: Regular Rate and Rhythm, Normal S1, S2. No: Murmurs Abdomen: No: Tenderness, Distention, Peritoneal Signs Back: Present: Normal Inspection Upper Extremity: Present: Normal Inspection. No: Cyanosis, Edema Lower Extremity: Present: Normal Inspection. No: Edema Neurological: Present: Motor Func Grossly Intact, Other (Lethargic) Skin: Present: Warm, Dry, Normal Color. No: Rashes Psychiatric: Present: Lethargic Medical Decision Making ED Course and Treatment: 08/09/17 06:32 Impression: 72 year old female brought in for altered mental status, lethargy, and shortness of breath. Plan: -- CT Head w/o contrast -- EKG -- Chest X-ray -- Labs, ABG, cardiac enzymes, alcohol level, ammonia, TSH, blood cultures -- Urinalysis, urine drug screen, urine cultures -- Reassess and disposition Progress Notes: Reviewed EKG, sinus tachycardia at 126 bpm. Incomplete RBBB. Septal infarct. Non -specific ST/T wave changes. - Lab Interpretations Microbiology Results: Microbiology Results 08/09/17 07:05 Blood-Venous Blood Culture - Preliminary NO GROWTH AFTER 3 DAYS 08/09/17 07:00 Blood-Venous Blood Culture - Preliminary NO GROWTH AFTER 3 DAYS 08/09/17 07:52 Urine,Starr Urine Culture - Final No Growth (<1,000 CFU/ML) Lab Results: 08/09/17 07:00 08/09/17 07:00 Lab Results 08/09/17 09:25: pCO2 112 H*, pO2 61.0 L, HCO3 44.8 H*, ABG pH 7.21 L, ABG Total CO2 48.2 H, ABG O2 Saturation 90.9 L, ABG Base Excess 12.0 H, ABG Potassium 4.6 , Glucose 347 H, Lactate 0.8, FiO2 40.0, Pressure Support 12, Inspiratory BiPAP 18, Sodium 139.0, Chloride 99.0, Arterial Blood Potassium 4.6 08/09/17 07:52: Urine Opiates Screen Negative, Urine Methadone Screen Negative, Ur Barbiturates Screen Negative, Ur Phencyclidine Scrn Negative, Ur Amphetamines Screen Negative, U Benzodiazepines Scrn Positive, U Oth Cocaine Metabols Negative, U Cannabinoids Screen Negative 08/09/17 07:52: Urine Color Yellow, Urine Appearance Clear, Urine pH 6.0, Ur Specific [place] >= 1.030, Urine Protein >=300 H, Urine Glucose (UA) 500 H, Urine Ketones Negative, Urine Blood Moderate H, Urine Nitrate Negative, Urine Bilirubin Negative, Urine Urobilinogen 0.2, Ur Leukocyte Esterase Negative, Urine RBC 10 - 15, Urine WBC 1 - 3, Ur Epithelial Cells 1 - 3, Urine Bacteria Mod 08/09/17 07:12: pCO2 115 H*, pO2 108.0 H, HCO3 37.4 H, ABG pH 7.12 L*, ABG Total CO2 40.9 H, ABG O2 Saturation 100.6 H, ABG Base Excess 4.0 H, ABG Potassium 4.5, Glucose 287 H, Lactate 0.6 L, FiO2 45.0, Sodium 142.0, Chloride 105.0, Arterial Blood Potassium 4.5 08/09/17 07:00: TSH 3rd Generation 3.75, Alcohol, Quantitative < 10 08/09/17 07:00: Ammonia 46 H 08/09/17 07:00: Sodium 142, Potassium 4.9, Chloride 92 L, Carbon Dioxide 39 H, Anion Gap 16, BUN 26 H, Creatinine 0.7, Est GFR ( Amer) > 60, Est GFR ( Non-Af Amer) > 60, Random Glucose 323 H* D, Calcium 9.2, Phosphorus 5.1 H, Magnesium 1.5 L, Total Bilirubin 0.3, AST 38 H D, ALT 28, Alkaline Phosphatase 91, Lactate Dehydrogenase 662, Total Creatine Kinase 42, Troponin I < 0.01 D, Total Protein 7.9, Albumin 3.9, Globulin 4.0, Albumin/Globulin Ratio 1.0 L 08/09/17 07:00: PT 10.8, INR 0.94, APTT 27.5 08/09/17 07:00: WBC 16.3 H, RBC 4.44, Hgb 12.8, Hct 42.1, MCV 94.8, MCH 28.8, MCHC 30.4 L, RDW 14.3, Plt Count 371, MPV 9.9, Gran % 60.8, Lymph % (Auto) 22.2 , [place] % (Auto) 12.1 H, Eos % (Auto) 4.3, Baso % (Auto) 0.6, Gran # 9.93 H, Lymph # (Auto) 3.6 H, [place] # (Auto) 2.0 H, Eos # (Auto) 0.7, Baso # (Auto) 0.10 08/09/17 06:00: NT-Pro-B Natriuret Pep 573 H - RAD Interpretation Radiology Orders: 08/09/17 06:33 HEAD W/O CONTRAST [CT] Stat 08/09/17 06:34 CHEST PORTABLE [RAD] Stat - EKG Interpretation Interpreted by ED Physician: Yes Type: 12 lead EKG - Medication Orders Current Medication Orders: Albuterol/Ipratropium (Duoneb 3 Mg/0.5 Mg (3 Ml) Ud) 3 ml IH [id number] BRIANNA Last Admin: 08/12/17 13:33 Dose: 3 ml Albuterol/Ipratropium (Duoneb 3 Mg/0.5 Mg (3 Ml) Ud) 3 ml IH Q2H PRN PRN Reason: Shortness of Breath Last Admin: 08/10/17 23:56 Dose: 3 ml Allopurinol (Zyloprim) 300 mg PO DAILY BRIANNA Last Admin: 08/12/17 10:16 Dose: 300 mg Alprazolam (Xanax) 0.25 mg PO TID PRN; Protocol PRN Reason: Anxiety Stop: 08/17/17 10:01 Last Admin: 08/11/17 23:58 Dose: 0.25 mg Behavioural Document 08/11/17 23:58 ST (Rec: 08/11/17 23:58 ST [id number]) Behavior Behavior for Medication: Insomnia Re-Assess: Reassess Psych Meds Document 08/12/17 00:58 ST (Rec: 08/12/17 02:06 ST [id number]) Reassess Psych Med Effective Aspirin (Ecotrin) 81 mg PO DAILY [facility] Last Admin: 08/12/17 10:16 Dose: 81 mg Atorvastatin Calcium (Lipitor) 20 mg PO DAILY [facility] Last Admin: 08/12/17 10:16 Dose: 20 mg Budesonide (Pulmicort Respules) 0.25 mg IH [id number] [facility] Last Admin: 08/12/17 07:28 Dose: 0.25 mg Clopidogrel Bisulfate (Plavix) 75 mg PO DAILY [facility] Last Admin: 08/12/17 10:16 Dose: 75 mg Furosemide (Lasix) 40 mg PO DAILY [facility] Last Admin: 08/12/17 10:18 Dose: 40 mg MAR Blood Pressure Document 08/12/17 10:18 CD (Rec: 08/12/17 10:18 CD [id number]) Blood Pressure Blood Pressure (100/60-150/90) 118/53 Gabapentin (Neurontin) 200 mg PO TID [facility] PRN Reason: Protocol Last Admin: 08/12/17 17:43 Dose: 200 mg Behavioural Document 08/12/17 17:43 CD (Rec: 08/12/17 17:43 CD [id number]) Maintenance Maintenance Dose Yes Re-Assess: Reassess Psych Meds Document 08/12/17 18:43 CD (Rec: 08/12/17 18:52 CD [id number]) Reassess Psych Med Effective Guaifenesin/Dextromethorphan (Robitussin Dm) 5 ml PO Q4H PRN PRN Reason: Cough Last Admin: 08/10/17 22:03 Dose: 5 ml Insulin Detemir (Levemir) 25 unit SC HS [facility] Last Admin: 08/11/17 22:04 Dose: 25 unit MAR Blood Glucose Document 08/11/17 22:04 ST (Rec: 08/11/17 22:04 ST [id number]) Blood Glucose Finger Stick Blood Glucose (70-120) 407 Subcutaneous Administrations Document 08/11/17 22:04 ST (Rec: 08/11/17 22:04 ST [id number]) Charges for Administration # of Subcutaneous Administrations 1 Insulin Human Regular (Humulin R Med) 0 units SC ACHS [facility] PRN Reason: Protocol Last Admin: 08/12/17 16:34 Dose: 7 units MAR Blood Glucose Document 08/12/17 16:34 CD (Rec: 08/12/17 16:34 [id number]) Blood Glucose Finger Stick Blood Glucose (70-120) 304 Subcutaneous Administrations Document 08/12/17 16:34 CD (Rec: 08/12/17 16:34 [email or web address]) Injection Site MAR Injection Site Left Arm Charges for Administration # of Subcutaneous Administrations 1 Insulin Lispro Protam/Lispro Human (Humalog Mix 75/25) 20 units SC ACBD [facility] Last Admin: 08/12/17 16:34 Dose: 20 units MAR Blood Glucose Document 08/12/17 16:34 CD (Rec: 08/12/17 16:34 [email or web address]) Blood Glucose Finger Stick Blood Glucose (70-120) 304 Subcutaneous Administrations Document 08/12/17 16:34 CD (Rec: 08/12/17 16:34 [email or web address]) Injection Site MAR Injection Site Right Arm Charges for Administration # of Subcutaneous Administrations 1 Isosorbide Mononitrate (Imdur) 60 mg PO DAILY [facility] Last Admin: 08/12/17 10:16 Dose: 60 mg Levofloxacin (Levaquin) 750 mg PO Q48H [facility] Last Admin: 08/11/17 09:45 Dose: 750 mg Lisinopril (Zestril) 30 mg PO DAILY [facility] Last Admin: 08/12/17 10:16 Dose: 30 mg MAR Pulse and Blood Pressure Document 08/12/17 10:16 CD (Rec: 08/12/17 10:18 [email or web address]) Pulse Pulse Rate (60-90) 81 Blood Pressure Blood Pressure (100/60-150/90) 118/53 Methylprednisolone (Solu-Medrol) 20 mg IVP Q12 [facility] Last Admin: 08/12/17 10:15 Dose: 20 mg IVP Administration Document 08/12/17 10:15 CD (Rec: 08/12/17 10:15 CD [id number]) Charges for Administration # of IVP Administrations 1 Metoprolol Succinate (Toprol Xl) 50 mg PO DAILY [facility] Last Admin: 08/12/17 10:18 Dose: 50 mg MAR Pulse and Blood Pressure Document 08/12/17 10:18 CD (Rec: 08/12/17 10:18 [id number]) Pulse Pulse Rate (60-90) 81 Blood Pressure Blood Pressure (100/60-150/90) 118/53 Pantoprazole Sodium (Protonix Ec Tab) 40 mg PO 0600 [facility] Last Admin: 08/12/17 05:39 Dose: 40 mg Ropinirole HCl (Requip) 3 mg PO HS [facility] Last Admin: 08/11/17 21:56 Dose: 3 mg Trazodone HCl (Desyrel) 50 mg PO HS PRN PRN Reason: Insomnia Last Admin: 08/10/17 22:00 Dose: 50 mg Discontinued Medications Furosemide (Lasix) 20 mg IVP ONCE ONE Stop: 08/09/17 06:44 Last Admin: 08/09/17 07:03 Dose: 20 mg MAR Blood Pressure Document 08/09/17 07:03 RG (Rec: 08/09/17 07:03 RG [id number]) Blood Pressure Blood Pressure (100/60-150/90) 229/125 IVP Administration Document 08/09/17 07:03 RG (Rec: 08/09/17 07:03 RG [id number]) Charges for Administration # of IVP Administrations 1 Aztreonam (Azactam 1 Gm) 100 mls @ 100 mls/hr IVPB STAT STA PRN Reason: Protocol Stop: 08/09/17 10:30 Last Admin: 08/09/17 09:59 Dose: 100 mls/hr eMAR Start Stop Document 08/09/17 09:59 [facility] (Rec: 08/09/17 09:59 [facility] [id number]) Intravenous Solution Start Date 08/09/17 Start Time 09:59 End Date 08/09/17 End time 10:59 Total Infusion Time 60 Vancomycin HCl (Vancomycin 1gm) 1 gm in 250 mls @ 167 mls/hr IVPB STAT STA PRN Reason: Protocol Stop: 08/09/17 11:00 Last Admin: 08/09/17 11:17 Dose: 167 mls/hr eMAR Start Stop Document 08/09/17 11:17 FM (Rec: 08/09/17 11:17 FM [id number]) Intravenous Solution Start Date 08/09/17 Start Time 11:17 End Date 08/09/17 Azithromycin (Zithromax 500mg In Ns) 500 mg in 250 mls @ 167 mls/hr IVPB DAILY [facility] PRN Reason: Protocol Last Admin: 08/09/17 11:17 Dose: 167 mls/hr eMAR Start Stop Document 08/09/17 11:17 FM (Rec: 08/09/17 11:17 FM [id number]) Intravenous Solution Start Date 08/09/17 Start Time 11:17 End Date 08/09/17 Magnesium Sulfate 2 gm/ Sodium (Chloride) 104 mls @ 102 mls/hr IVPB ONCE ONE Stop: 08/10/17 07:59 Last Admin: 08/10/17 08:06 Dose: 102 mls/hr eMAR Start Stop Document 08/10/17 08:06 JFG (Rec: 08/10/17 08:06 JFG [facility] [id number]) Intravenous Solution Start Date 08/10/17 Start Time 08:06 End Date 08/10/17 End time 09:08 Total Infusion Time 62 Insulin Human Regular (Humulin R Low) 0 units SC ACHS [facility] PRN Reason: Protocol Last Admin: 08/09/17 16:31 Dose: 3 units MAR Blood Glucose Document 08/09/17 16:31 FM (Rec: 08/09/17 16:32 FM [id number]) Blood Glucose Finger Stick Blood Glucose (70-120) 275 Subcutaneous Administrations Document 08/09/17 16:31 FM (Rec: 08/09/17 16:32 FM [id number]) Injection Site MAR Injection Site Left Deltoid Charges for Administration # of Subcutaneous Administrations 1 Insulin Lispro Protam/Lispro Human (Humalog Mix 75/25) 15 units SC ACBD [facility] Last Admin: 08/11/17 08:15 Dose: 15 units MAR Blood Glucose Document 08/11/17 08:15 CD (Rec: 08/11/17 08:16 CD [id number]) Blood Glucose Finger Stick Blood Glucose (70-120) 273 Subcutaneous Administrations Document 08/11/17 08:15 CD (Rec: 08/11/17 08:16 CD [id number]) Injection Site MAR Injection Site Right Arm Charges for Administration # of Subcutaneous Administrations 1 Levofloxacin/Dextrose (Levaquin 750mg) 750 mg IVPB DAILY [facility] PRN Reason: Protocol Last Admin: 08/10/17 09:26 Dose: 750 mg eMAR Start Stop Document 08/10/17 09:26 JF (Rec: 08/10/17 09:26 [id number]) Intravenous Solution Start Date 08/10/17 Start Time 09:26 End Date 08/10/17 End time 10:26 Total Infusion Time 60 Methylprednisolone (Solu-Medrol) 125 mg IVP ONCE ONE Stop: 08/09/17 06:55 Last Admin: 08/09/17 07:13 Dose: 125 mg IVP Administration Document 08/09/17 07:13 RG (Rec: 08/09/17 07:15 RG [id number]) Charges for Administration # of IVP Administrations 1 Methylprednisolone (Solu-Medrol) 40 mg IVP Q8H [facility] Last Admin: 08/10/17 09:29 Dose: 40 mg IVP Administration Document 08/10/17 09:29 JF (Rec: 08/10/17 09:29 [id number]) Charges for Administration # of IVP Administrations 1 Methylprednisolone (Solu-Medrol) 40 mg IVP Q12 [facility] Last Admin: 08/11/17 09:41 Dose: 40 mg IVP Administration Document 08/11/17 09:41 CD (Rec: 08/11/17 09:41 CD [id number]) Charges for Administration # of IVP Administrations 1 Pneumococcal Polyvalent Vaccine (Pneumovax 23 Vaccine) 0.5 ml IM .ONCE ONE Stop: 08/09/17 11:32 - Transfer of Care Patient signed out to Dr:: marcella labs and dispo - Scribe Statement The provider has reviewed the documentation as recorded by the Inder Escalante Provider Scribe Attestation: All medical record entries made by the Scribe were at my direction and personally dictated by me. I have reviewed the chart and agree that the record accurately reflects my personal performance of the history, physical exam, medical decision making, and the department course for this patient. I have also personally directed, reviewed, and agree with the discharge instructions and disposition. Disposition/Present on Arrival - Present on Arrival Any Indicators Present on Arrival: No History of DVT/PE: No History of Uncontrolled Diabetes: No Urinary Catheter: No History of Decub. Ulcer: No History Surgical Site Infection Following: None - Disposition Have Diagnosis and Disposition been Completed?: Yes Diagnosis: Respiratory failure, COPD exacerbation Disposition: HOSPITALIZED Disposition Time: 07:00 Patient Problems: Current Active Problems Problem Status Onset COPD exacerbation Acute Respiratory failure Acute Condition: SERIOUS
--- NOTE | 2017-08-09 07:11 | ED PDOC ---
Physical Exam Vital Signs Temp Pulse Resp BP Pulse Ox 08/09/17 10:51 107 H 08/09/17 10:50 105 H 35 H 96 08/09/17 10:49 107 H 08/09/17 10:46 108 H 25 H 130/74 92 L 08/09/17 10:42 92 L 08/09/17 10:21 98 F 98 H 18 116/51 L 98 08/09/17 09:18 102 H 20 119/51 L 100 08/09/17 08:31 102 H 16 113/47 L 100 08/09/17 07:44 113 H 16 142/77 97 08/09/17 07:29 111 H 16 127/67 98 08/09/17 07:08 117 H 22 155/100 H 98 08/09/17 07:03 229/125 H 08/09/17 06:45 97.8 F 126 H 26 H 229/125 H 100 08/09/17 06:30 24 100 Finger Stick Blood Glucose: 227 Medical Decision Making ED Course and Treatment: 08/09/17 07:00 Case signed out to me by Dr. Osborne. Patient is a 72 year old female, whose past medical history includes COPD, pulmonary fibrosis, diabetes, hypertension, CAD with multiple coronary stents, who presents to the Emergency department via EMS for worsening shortness of breath since one day ago. Currently pending CT scan and Chest X-ray. 08/09/17 07:35 Case was discussed with patient's family member, who are aware of treatment and state they do not want the patient to be intubated. 08/09/17 09:54 case was discussed with Dr. Sher, and Dr. Becker, sales and in home delivery specialist, who are aware of plan and accept patient to ICU. - Lab Interpretations Lab Results: 08/09/17 07:00 08/09/17 07:00 Lab Results 08/09/17 09:25: pCO2 112 H*, pO2 61.0 L, HCO3 44.8 H*, ABG pH 7.21 L, ABG Total CO2 48.2 H, ABG O2 Saturation 90.9 L, ABG Base Excess 12.0 H, ABG Potassium 4.6 , Glucose 347 H, Lactate 0.8, FiO2 40.0, Pressure Support 12, Inspiratory BiPAP 18, Sodium 139.0, Chloride 99.0, Arterial Blood Potassium 4.6 08/09/17 07:52: Urine Opiates Screen Negative, Urine Methadone Screen Negative, Ur Barbiturates Screen Negative, Ur Phencyclidine Scrn Negative, Ur Amphetamines Screen Negative, U Benzodiazepines Scrn Positive, U Oth Cocaine Metabols Negative, U Cannabinoids Screen Negative 08/09/17 07:52: Urine Color Yellow, Urine Appearance Clear, Urine pH 6.0, Ur Specific [place] >= 1.030, Urine Protein >=300 H, Urine Glucose (UA) 500 H, Urine Ketones Negative, Urine Blood Moderate H, Urine Nitrate Negative, Urine Bilirubin Negative, Urine Urobilinogen 0.2, Ur Leukocyte Esterase Negative, Urine RBC 10 - 15, Urine WBC 1 - 3, Ur Epithelial Cells 1 - 3, Urine Bacteria Mod 08/09/17 07:12: pCO2 115 H*, pO2 108.0 H, HCO3 37.4 H, ABG pH 7.12 L*, ABG Total CO2 40.9 H, ABG O2 Saturation 100.6 H, ABG Base Excess 4.0 H, ABG Potassium 4.5, Glucose 287 H, Lactate 0.6 L, FiO2 45.0, Sodium 142.0, Chloride 105.0, Arterial Blood Potassium 4.5 08/09/17 07:00: TSH 3rd Generation 3.75, Alcohol, Quantitative < 10 08/09/17 07:00: Ammonia 46 H 08/09/17 07:00: Sodium 142, Potassium 4.9, Chloride 92 L, Carbon Dioxide 39 H, Anion Gap 16, BUN 26 H, Creatinine 0.7, Est GFR ( Amer) > 60, Est GFR ( Non-Af Amer) > 60, Random Glucose 323 H* D, Calcium 9.2, Phosphorus 5.1 H, Magnesium 1.5 L, Total Bilirubin 0.3, AST 38 H D, ALT 28, Alkaline Phosphatase 91, Lactate Dehydrogenase 662, Total Creatine Kinase 42, Troponin I < 0.01 D, Total Protein 7.9, Albumin 3.9, Globulin 4.0, Albumin/Globulin Ratio 1.0 L 08/09/17 07:00: PT 10.8, INR 0.94, APTT 27.5 08/09/17 07:00: WBC 16.3 H, RBC 4.44, Hgb 12.8, Hct 42.1, MCV 94.8, MCH 28.8, MCHC 30.4 L, RDW 14.3, Plt Count 371, MPV 9.9, Gran % 60.8, Lymph % (Auto) 22.2 , [place] % (Auto) 12.1 H, Eos % (Auto) 4.3, Baso % (Auto) 0.6, Gran # 9.93 H, Lymph # (Auto) 3.6 H, [place] # (Auto) 2.0 H, Eos # (Auto) 0.7, Baso # (Auto) 0.10 08/09/17 06:00: NT-Pro-B Natriuret Pep 573 H - RAD Interpretation Radiology Orders: 08/09/17 06:33 HEAD W/O CONTRAST [CT] Stat 08/09/17 06:34 CHEST PORTABLE [RAD] Stat - Medication Orders Current Medication Orders: Budesonide (Pulmicort Respules) 0.25 mg IH [id number] [facility] Insulin Human Regular (Humulin R Low) 0 units SC ACHS BRIANNA PRN Reason: Protocol Last Admin: 08/09/17 16:31 Dose: 3 units MAR Blood Glucose Document 08/09/17 16:31 FM (Rec: 08/09/17 16:32 FM [id number]) Blood Glucose Finger Stick Blood Glucose (70-120) 275 Subcutaneous Administrations Document 08/09/17 16:31 FM (Rec: 08/09/17 16:32 FM [id number]) Injection Site MAR Injection Site Left Deltoid Charges for Administration # of Subcutaneous Administrations 1 Levofloxacin/Dextrose (Levaquin 750mg) 750 mg IVPB DAILY [facility] PRN Reason: Protocol Methylprednisolone (Solu-Medrol) 40 mg IVP Q8H [facility] Last Admin: 08/09/17 17:19 Dose: 40 mg IVP Administration Document 08/09/17 17:19 FM (Rec: 08/09/17 17:19 FM [id number]) Charges for Administration # of IVP Administrations 1 Discontinued Medications Furosemide (Lasix) 20 mg IVP ONCE ONE Stop: 08/09/17 06:44 Last Admin: 08/09/17 07:03 Dose: 20 mg MAR Blood Pressure Document 08/09/17 07:03 RG (Rec: 08/09/17 07:03 RG [id number]) Blood Pressure Blood Pressure (100/60-150/90) 229/125 IVP Administration Document 08/09/17 07:03 RG (Rec: 08/09/17 07:03 RG [id number]) Charges for Administration # of IVP Administrations 1 Aztreonam (Azactam 1 Gm) 100 mls @ 100 mls/hr IVPB STAT STA PRN Reason: Protocol Stop: 08/09/17 10:30 Last Admin: 08/09/17 09:59 Dose: 100 mls/hr eMAR Start Stop Document 08/09/17 09:59 BASS FISHER (Rec: 08/09/17 09:59 BASS FISHER [id number]) Intravenous Solution Start Date 08/09/17 Start Time 09:59 End Date 08/09/17 End time 10:59 Total Infusion Time 60 Vancomycin HCl (Vancomycin 1gm) 1 gm in 250 mls @ 167 mls/hr IVPB STAT STA PRN Reason: Protocol Stop: 08/09/17 11:00 Last Admin: 08/09/17 11:17 Dose: 167 mls/hr eMAR Start Stop Document 08/09/17 11:17 FM (Rec: 08/09/17 11:17 FM [id number]) Intravenous Solution Start Date 08/09/17 Start Time 11:17 End Date 08/09/17 Azithromycin (Zithromax 500mg In Ns) 500 mg in 250 mls @ 167 mls/hr IVPB DAILY BRIANNA PRN Reason: Protocol Last Admin: 08/09/17 11:17 Dose: 167 mls/hr eMAR Start Stop Document 08/09/17 11:17 FM (Rec: 08/09/17 11:17 FM [id number]) Intravenous Solution Start Date 08/09/17 Start Time 11:17 End Date 08/09/17 Methylprednisolone (Solu-Medrol) 125 mg IVP ONCE ONE Stop: 08/09/17 06:55 Last Admin: 08/09/17 07:13 Dose: 125 mg IVP Administration Document 08/09/17 07:13 RG (Rec: 08/09/17 07:15 RG [id number]) Charges for Administration # of IVP Administrations 1 Pneumococcal Polyvalent Vaccine (Pneumovax 23 Vaccine) 0.5 ml IM .ONCE ONE Stop: 08/09/17 11:32 - Scribe Statement The provider has reviewed the documentation as recorded by the Inder Raymond Provider Kellyibe Attestation: All medical record entries made by the Dayanae were at my direction and personally dictated by me. I have reviewed the chart and agree that the record accurately reflects my personal performance of the history, physical exam, medical decision making, and the department course for this patient. I have also personally directed, reviewed, and agree with the discharge instructions and disposition. Disposition/Present on Arrival - Present on Arrival Any Indicators Present on Arrival: No History of DVT/PE: No History of Uncontrolled Diabetes: No Urinary Catheter: No History of Decub. Ulcer: No History Surgical Site Infection Following: None - Disposition Have Diagnosis and Disposition been Completed?: Yes Diagnosis: Respiratory failure, COPD exacerbation Disposition: HOSPITALIZED Disposition Time: 08:00 Condition: SERIOUS
[2017-08-09 07:12] LABS: BASO # 0.1 K/mm3 (0.0-2.0); BASO % 0.6 % (0.0-3.0); EOS # 0.7 (0.0-0.7); EOS % 4.3 % (1.5-5.0); GRAN # 9.93 (1.4-6.5); GRAN % 60.8 % (50.0-68.0); HEMOGLOBIN 12.8 g/dL (12.0-16.0); LYMPH # 3.6 (1.2-3.4); LYMPH % 22.2 % (22.0-35.0); MEAN CELL VOLUME 94.8 fl (80.0-105.0); MEAN CORPUSCULAR HEMOGLOBIN 28.8 pg (25.0-35.0); MEAN CORPUSCULAR HGB CONC 30.4 g/dl (31.0-37.0); MEAN PLATELET VOLUME 9.9 fl (7.0-11.0); MONO % 12.1 % (1.0-6.0); RBC 4.44 10^6/uL (3.5-6.1); RED CELL DISTRIBUTION WIDTH 14.3 % (11.5-14.5); WHITE BLOOD COUNT 16.3 10^3/ul (4.5-11.0)
[2017-08-09 07:16] LABS: ARTERIAL BLOOD GAS HCO3 37.4 mmol/L (21-28); ARTERIAL BLOOD GAS O2 SAT 100.6 % (95-98); ARTERIAL BLOOD GAS TCO2 40.9 mmol.L (22-28)
[2017-08-09 07:21] LABS: ARTERIAL BLOOD GAS PCO2 115 mm/Hg (35-45); ARTERIAL BLOOD GAS PH 7.12 (7.35-7.45)
[2017-08-09 07:32] LABS: TROPONIN I < 0.01 ng/mL
[2017-08-09 07:34] LABS: ALBUMIN 3.9 g/dL (3.0-4.8); ALT/SGPT 28 U/L (7-56); AST/SGOT 38 U/L (14-36); BLOOD UREA NITROGEN 26 mg/dL (7-21); CALCIUM 9.2 mg/dL (8.4-10.5); GFR AFRICAN-AMERICAN > 60; GFR NON-AFRICAN AMERICAN > 60
[2017-08-09 07:37] LABS: INR 0.94 (0.93-1.08); PARTIAL THROMBOPLASTIN TIME 27.5 Seconds (25.1-36.5); PROTHROMBIN TIME 10.8 SECONDS (9.4-12.5)
[2017-08-09 08:19] LABS: URINE BILIRUBIN NEGATIVE (NEGATIVE); URINE BLOOD MODERATE (NEGATIVE); URINE GLUCOSE (UA) 500 mg/dL (NEGATIVE); URINE LEUKOCYTE ESTERASE NEGATIVE Leu/uL (NEGATIVE); URINE PROTEIN >=300 mg/dL (<30 mg/dL); URINE UROBILINOGEN 0.2 E.U./dL (<1 E.U./dL)
[2017-08-09 08:28] LABS: PHENCYCLIDINE, UR NEGATIVE (NEGATIVE)
[2017-08-09 08:35] LABS: URINE APPEARANCE CLEAR (CLEAR); URINE COLOR YELLOW (YELLOW)
[2017-08-09 08:38] LABS: URINE BACTERIA MOD (NEG)
[2017-08-09 08:44] LABS: BARBITURATES, UR NEGATIVE (NEGATIVE); BENZODIAZEPINES, UR POSITIVE (NEGATIVE); OPIATES, UR NEGATIVE (NEGATIVE)
[2017-08-09] MEDS ORDERED: Vancomycin 1gm in NS 250ml 1 GM/250 ML BAG IVPB STA (09:31)
[2017-08-09] MEDS ORDERED: Aztreonam 1 Gm in NS 100mL 100 ML IVPB STA (09:31)
[2017-08-09 09:35] LABS: ARTERIAL BLOOD GAS O2 SAT 90.9 % (95-98); ARTERIAL BLOOD GAS TCO2 48.2 mmol.L (22-28)
[2017-08-09 09:36] LABS: ARTERIAL BLOOD GAS HCO3 44.8 mmol/L (21-28); ARTERIAL BLOOD GAS PCO2 112 mm/Hg (35-45); ARTERIAL BLOOD GAS PH 7.21 (7.35-7.45)
--- NOTE | 2017-08-09 09:44 | CT ---
PROCEDURE: CT HEAD WITHOUT CONTRAST. HISTORY: ams COMPARISON: Unenhanced head CT 11/29/2015 TECHNIQUE: Axial computed tomography images were obtained through the head/brain without intravenous contrast. Radiation dose: Total exam DLP = 835.48 mGy-cm. This CT exam was performed using one or more of the following dose reduction techniques: Automated exposure control, adjustment of the mA and/or kV according to patient size, and/or use of iterative reconstruction technique. FINDINGS: HEMORRHAGE: No intracranial hemorrhage. BRAIN: A chronic lacune is seen at the left thalamus. 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 Mild chronic microangiopathy is reiterated throughout the white matter of the ventricular sulcal sternal spaces unremarkable appearing. Midline brain anatomy is unremarkable exclusive of the radiodensity at the 3rd ventricle region. No suspicious extra-axial fluid collection is identified throughout. VENTRICLES: Unremarkable. No hydrocephalus. CALVARIUM: Unremarkable. PARANASAL SINUSES: Unremarkable as visualized. No significant inflammatory changes. MASTOID AIR CELLS: Unremarkable as visualized. No inflammatory changes. OTHER FINDINGS: None. IMPRESSION: Stable limited age-related neuro degenerative changes are identified. 4 mm radiodensity at the anterior portion 3rd ventricle may or represent a small colloid cyst. Chronic lacune again seen left thalamus. Follow-up CT or MRI are available if clinically warranted.
--- NOTE | 2017-08-09 09:56 | RAD ---
HISTORY: ams COMPARISON: Portable chest 05/11/2017 and distant prior portable chest 01/10/2016. FINDINGS: LUNGS: Chronic interstitial pulmonary disease is not significantly changed since the last chest radiograph noted above with reticulonodular changes again evident diffusely. Over time they have increased since the 2016 prior chest radiograph however. No alveolitis appreciated bilaterally. PLEURA: No significant pleural effusion identified, no pneumothorax apparent. CARDIOVASCULAR: Normal. OSSEOUS STRUCTURES: No significant abnormalities. VISUALIZED UPPER ABDOMEN: Normal. OTHER FINDINGS: None. IMPRESSION: Stable chronic interstitial pulmonary disease. No acute alveolitis, infiltrate, pleural effusion or pneumothorax bilaterally.
[2017-08-09] MEDS ORDERED: Azithromycin 500MG/NS 250ml 500 MG/250 ML BAG IVPB SCH (10:00)
--- NOTE | 2017-08-09 10:01 | CP.PCM.CON ---
History of Present Illness - History of Present Illness History of Present Illness: MICU Consult Note HPI Patient is 72yo female with PMhx of end stage COPD on home o2, ILD/Fibrosis, CAD with stents, DM, HTN, presents with altered mental status. As per the /HCP, Liborio Miranda, and daughter Karyn, who is at bedside, patient was seen last night, agitated, and then became more lethargic this morning. In the ER noted ot be in hypecapnic resp failure, placed on BIPAP, given IV Abx and Steroids. Pt is DNR/DNI. Pt's family denies any history of fever, chills, worsening cough, CP, palpitations, ARROYO, dizziness. No other constitutional symptoms. PMHx as above PSHx as above Meds as per EMR ROS as above FHx NC Review of Systems - Review of Systems Review of Systems: as per HPI Past Patient History - Infectious Disease Hx of Infectious Diseases: None - Tetanus Immunizations Tetanus Immunization: Unknown - Past Medical History & Family History Past Medical History?: Yes - Past Social History Smoking Status: Former Smoker - CARDIAC Hx Cardiac Disorders: Yes (CAD) - PULMONARY Hx Chronic Obstructive Pulmonary Disease (COPD): Yes - NEUROLOGICAL HX Cerebrovascular Accident: No - HEENT Hx HEENT Problems: Yes Hx Cataracts: Yes - RENAL Hx Renal Failure: Yes - ENDOCRINE/METABOLIC Hx Diabetes Mellitus Type 2: Yes - HEMATOLOGICAL/ONCOLOGICAL Hx Hepatitis B: Yes - INTEGUMENTARY Hx Dermatological Problems: Yes - MUSCULOSKELETAL/RHEUMATOLOGICAL Hx Falls: No - GASTROINTESTINAL Hx Gastrointestinal Disorders: Yes (VENTRAL HERNIA) - GENITOURINARY/GYNECOLOGICAL Hx Reproductive Disorders: No - PSYCHIATRIC Hx Substance Use: No - SURGICAL HISTORY Hx Coronary Stent: Yes (X9) Hx Hysterectomy: Yes (partial) - ANESTHESIA Hx Anesthesia Reactions: No Hx Malignant Hyperthermia: No Meds Allergies/Adverse Reactions: Allergies Allergy/AdvReac Type Severity Reaction Status Date / Time FISH Allergy Severe THROAT Verified 05/16/17 00:12 SWELLING iodine Allergy RASH Verified 05/16/17 00:12 oxaprozin [From Daypro] Allergy RASH Verified 05/16/17 00:12 Penicillins Allergy ANAPHYLAXIS Verified 05/16/17 00:12 zolpidem [From Ambien] AdvReac Intermediate FATIGUE Verified 05/16/17 00:12 - Medications Medications: Current Medications Budesonide (Pulmicort Respules) 0.25 mg IH [id number] BRIANNA Aztreonam (Azactam 1 Gm) 100 mls @ 100 mls/hr IVPB STAT STA PRN Reason: Protocol Stop: 08/09/17 10:30 Vancomycin HCl (Vancomycin 1gm) 1 gm in 250 mls @ 167 mls/hr IVPB STAT STA PRN Reason: Protocol Stop: 08/09/17 11:00 Azithromycin (Zithromax 500mg In Ns) 500 mg in 250 mls @ 167 mls/hr IVPB DAILY BRIANNA PRN Reason: Protocol Methylprednisolone (Solu-Medrol) 40 mg IVP Q8H BRIANNA Physical Exam - Constitutional Appears: Toxic, No Acute Distress, Older Than Stated Age, Confused, Chronically Ill - Head Exam Head Exam: NORMAL INSPECTION - Eye Exam Eye Exam: Normal appearance - ENT Exam ENT Exam: Mucous Membranes Moist - Respiratory Exam Respiratory Exam: Wheezes, NORMAL BREATHING PATTERN - Cardiovascular Exam Cardiovascular Exam: REGULAR RHYTHM, +S1, +S2 - GI/Abdominal Exam GI & Abdominal Exam: Normal Bowel Sounds, Soft - Extremities Exam Extremities exam: Positive for: normal inspection - Neurological Exam Neurological exam: Altered Results - Vital Signs Recent Vital Signs: Last Vital Signs Temp 97.8 F 08/09/17 06:45 Pulse 102 H 08/09/17 09:18 Resp 20 08/09/17 09:18 BP 119/51 L 08/09/17 09:18 Pulse Ox 100 08/09/17 09:18 - Labs Result Diagrams: 08/09/17 07:00 08/09/17 07:00 - Imaging and Cardiology Chest x-ray Status: Image reviewed by me, Report reviewed by me Assessment & Plan - Assessment and Plan (Free Text) Assessment: 72yo female a/w hypercapnic resp failure Hypercapnic Resp failure COPD exacerbation Leukocytosis CAD HTN DM AMS Recommend: - cont with BIPAP, increase IPAP to 18, BIPAP 18/6/40%, repeat ABG shows mild improvement in pCO2, and pH - patient is DNR/DNI as per family - IV steroids, Solumedrol 40mg Q8hrs - Pulmicort BID - Aztreonam, Vanco, Azithro - Panculture, UCx, BCx, Procal - BP control - FS control - monitor HH - GI ppx - DVT ppx - Monitor in MICU Patient is DNR/DNI Patient at high risk for morbidity and mortality
--- NOTE | 2017-08-09 10:33 | CARD ---
APPROVED REPORT EKG Measurement Heart [id number] <Conclusion> Sinus tachycardia Possible Left atrial enlargement Incomplete right bundle branch block Septal infarct, age undetermined No change
[2017-08-09] MEDS: MethylPREDNISolone 40 mg Vial IVP SCH ×2 (11:13→17:19)
[2017-08-09] MEDS ORDERED: Pneumococcal 23-Valent Vaccine IM ONE (11:31)
[2017-08-09] MEDS: Insulin Reg-LOW-Coverage SC SCH ×2 (11:59→16:31)
[2017-08-09 14:01] LABS: ARTERIAL BLOOD GAS HEMOGLOBIN 11.9 g/dL (11.7-17.4); ARTERIAL BLOOD GAS O2 CAPACITY 16.3 mL/dl (16-24); ARTERIAL BLOOD GAS O2 CONTENT 15.5 ML/dl (15-23); ARTERIAL BLOOD GAS O2 SAT 95.2 % (95-98); ARTERIAL BLOOD GAS PH 7.29 (7.35-7.45)
[2017-08-09 14:04] LABS: ARTERIAL BLOOD GAS HCO3 40.4 mmol/L (21-28); ARTERIAL BLOOD GAS PCO2 84 mm/Hg (35-45)
--- NOTE | 2017-08-09 14:17 | CON ---
DATE: 08/09/2017 PULMONARY CONSULTATION REASON FOR CONSULTATION: Respiratory failure. REFERRING PHYSICIAN: Ten Sher MD HISTORY OF PRESENT ILLNESS: History is obtained via extensive discussion with the and daughter. I have also discussed the case with Dr. Vital (Emergency Room) at length. The patient is not an adequate historian at the present time. The patient is a chronically ill 72-year-old female, with past medical history significant for advanced chronic obstructive pulmonary disease, on home oxygen; advanced interstitial lung disease; extensive coronary artery disease, status post multiple cardiac stents; diabetes mellitus; chronic anemia, who presents to [facility] with worsening shortness of breath at rest and dyspnea on exertion for the past 2 days. In addition, the patient has been more lethargic over the past 1 day. The patient was then brought to [facility] for additional evaluation and treatment. Again, the patient does present with a 2-day history of worsening shortness of breath at rest and dyspnea on exertion. She does have a chronic cough with occasional sputum production - which the daughter says has not changed. There is no history of chest pain, coughing up of blood, or chest pain - made worse with deep respirations. There is no history of temperatures, chills or infectious exposure. There is no history of night sweats, weight loss or appetite change prior to the above events. No history of calf pains. No history of syncope or diaphoresis. No history of recent travel or trauma. REVIEW OF SYSTEMS: No history of nausea, vomiting or diarrhea. No acute urinary symptoms. No new musculoskeletal complaints. Rest of the review of systems is negative. ALLERGIES: IODINE, PENICILLIN AND AMBIEN. SOCIAL HISTORY: Positive for extensive tobacco usage , no alcohol. FAMILY HISTORY: No inheritable diseases. HOME MEDICATIONS: Include Ventolin, Spiriva, Requip, Toprol, Zyloprim, Imdur, Zestril, Lasix, atorvastatin, Xanax, Neurontin, Plavix and Ecotrin. PHYSICAL EXAMINATION GENERAL: The patient is lethargic at the present time. She is somewhat arousable. She is not short of breath. She is currently on BiPAP. VITAL SIGNS: Temperature is 97.8, pulse 102, respirations 20, blood pressure 119/51. Oxygen saturation on BiPAP is 100%. HEENT: Normocephalic, atraumatic. No JVD. CARDIOVASCULAR: Systolic ejection murmur at the lower left sternal border. No S3 gallop. LUNGS: Crackles at both bases - chronic. Mild bilateral rhonchi. A few wheezes are also appreciated. EXTREMITIES: Mild edema. No cyanosis or clubbing. Calves are nontender to palpation. GI: Abdomen is soft, nontender and nondistended. Bowel sounds are positive. SKIN: No acute rash. NEUROLOGIC: Limited at the present time. PERTINENT LABORATORY DATA: Chest x-ray was done earlier this morning and reviewed. There are chronic extensive interstitial changes noted. The film is not significantly changed from the film of 05/11/2017. Arterial blood gas was done on Ventimask. Results are pH 7.12, pCO2 of 115, pO2 of 108. CBC: White count 16.3K, hemoglobin 12.8, hematocrit 42.1, platelets of 371,000. Complete metabolic profile: Chloride 92, carbon dioxide 39, BUN 26, glucose 323, phosphorus 5.1, magnesium 1.5, AST 38, ammonia 46. Rest of the metabolic profile is within normal limits. IMPRESSION: 1. Respiratory failure. 2. Advanced chronic obstructive pulmonary disease. 3. Advanced interstitial lung disease. 4. Advanced coronary artery disease, status post multiple cardiac stents. 5. Diabetes mellitus. PLAN: Again, I did discuss the case with the daughter and at length. I have also discussed the case with Dr. Vital (Emergency Room) at length. I have also reviewed the chart at length. The patient presents to [facility] with main complaints of increasing shortness of breath at rest, and dyspnea on exertion for the past 2 days. In addition to the above, the daughter also notes that her mother has been lethargic over the past 1 day. The daughter/ offer no other new pulmonary complaints at this point in time. I did review the chest x-ray as above. The chest x-ray shows chronic extensive interstitial changes. The film is not significantly changed from the previous film, however, I certainly cannot rule out an underlying pneumonia at this point in time. I have also reviewed the arterial blood gas. A significant respiratory acidosis is noted. The patient has been placed on BiPAP. We are awaiting a repeat arterial blood gas to be done. I have also discussed the case with the wrapping checker (Dr. Stiles). The patient will be admitted to the ICU. The ICU team will write the orders - which include nebulizer treatments, intravenous steroids, and antibiotics. Again, I will check the repeat arterial blood gas (on BiPAP) when feasible. The patient is very critically ill at this point in time. I will discuss the above with Dr. Sher later this morning. Thank you very much for this pulmonary consultation. Randell Becker MD MTDVinny
[2017-08-09] MEDS ORDERED: Dexamethasone 4 mg/1 ml IVP SCH (16:45)
--- NOTE | 2017-08-09 20:04 | HP ---
HISTORY OF PRESENT ILLNESS: Patient is 72 years old. History is taken from patient's daughter who is by the bedside. Patient is currently minimally responsive. According to the daughter, she went to Dr. Chamberlain's office yesterday for pulmonary rehab. When she came home, she had dinner. She came down to spend sometime with her daughter and then ended up going to her bed. Around 11 o'clock, she woke her up that she cannot breath and asked him to call ambulance, so she was brought to the emergency room. She was found to be confused, disoriented, minimally responsive. Her initial blood work shows CO2 retention, so patient's family does not want her to be intubated, so currently she is on BiPAP and is in ICU. There is no history of fever or chills. No nausea, vomiting, or diarrhea. Patient was complaining of some shortness of breath as of yet, but yesterday daughter states she has been on her baseline health. PAST MEDICAL HISTORY: Significant for, 1. Hypertension. 2. Status post angioplasty. 3. Insulin-dependent diabetes. 4. Hyperlipidemia. 5. COPD. 6. Degenerative disk disease. 7. History of ventral hernia, has been stable, never had episode of incarceration. ALLERGIES: SHE IS ALLERGIC TO FISH, OXAPROZIN, PENCILLIN, ZOLPIDEM. SOCIAL HISTORY: She is . Lives with her . She used to be a heavy smoker, quit a few years ago. MEDICATION AT HOME: She is on Requip 2 mg at bedtime, Spiriva 18 mcg daily, primidone 50 mg at bedtime, metoprolol 50 mg daily, lisinopril 30 mg daily, Plavix 75 mg daily, atorvastatin 20 mg daily, aspirin 81 mg daily, allopurinol 300 mg daily. REVIEW OF SYSTEMS: Significant for altered mental status. No fever. No chills. No cough. No congestion. PHYSICAL EXAMINATION: GENERAL: She is sleepy, minimally arousable, opens eyes on verbal command. VITAL SIGNS: She is afebrile, pulse 103, respirations 25, blood pressure 130/74. LUNGS: Bilateral fair airflow, but diffusely decreased breath sounds. HEART: S1 and S2 audible, tachycardiac. ABDOMEN: Soft. Nontender. No rebound. No guarding. NEUROLOGIC: She is sleepy. EXTREMITIES: Bilateral legs, no edema. LABORATORY EXAM: WBC 16.3, hemoglobin 12.8, hematocrit 42.1, platelet of 371. PT 10.8, INR 0.94. Chemistry: Sodium 142, potassium 4.9, chloride 92, CO2 of 39, BUN 26, creatinine 0.7, blood sugar of 323, and magnesium is 1.5. AST 38. Ammonia level is 46. BNP is 573. Urine analysis shows moderate blood and urine tox is negative. ASSESSMENT: 1. Chronic obstructive pulmonary disease exacerbation. 2. Carbon dioxide narcosis. 3. Coronary artery disease status post angioplasty. 4. Insulin-dependent diabetes. 5. Altered mental status secondary to carbon dioxide retention. PLAN: Patient is currently on BiPAP. We will start her on nebulizer treatment. She is on insulin coverage. We will give her IV steroids, start her on IV fluids, and Dr. Becker has been consulted. We will follow up with the patient. Ten Sher MD
[2017-08-09] MEDS: guaiFENesin DM 100 mg-10 mg/5 ml UD PO PRN (20:22)
[2017-08-09] MEDS: Budesonide 0.25 mg/2 ml Inhal Susp UD IH SCH (20:47)
[2017-08-09] MEDS ORDERED: Albuterol-Ipratrop 3 mg / 0.5 (3 ml) UD IH PRN (21:27)
[2017-08-09] MEDS: Insulin Detemir 100 units/ml Vial (Levemir) SC SCH (21:57)
[2017-08-09] MEDS: Insulin Reg-MEDIUM-Coverage SC SCH (21:59)
[2017-08-10] MEDS: Albuterol-Ipratrop 3 mg / 0.5 (3 ml) UD IH SCH ×4 (01:23→19:30)
[2017-08-10] MEDS: MethylPREDNISolone 40 mg Vial IVP SCH ×3 (01:35→22:04)
[2017-08-10 06:27] LABS: GRAN # 7.27 (1.4-6.5); GRAN % 86.1 % (50.0-68.0); HEMOGLOBIN 11.9 g/dL (12.0-16.0); LYMPH # 0.8 (1.2-3.4); LYMPH % 9.6 % (22.0-35.0); MEAN CELL VOLUME 93.2 fl (80.0-105.0); MEAN CORPUSCULAR HGB CONC 30.1 g/dl (31.0-37.0); MEAN PLATELET VOLUME 9.8 fl (7.0-11.0); MONO # 0.4 (0.1-0.6); MONO % 4.3 % (1.0-6.0); RBC 4.25 10^6/uL (3.5-6.1); RED CELL DISTRIBUTION WIDTH 14.4 % (11.5-14.5); WHITE BLOOD COUNT 8.4 10^3/ul (4.5-11.0)
[2017-08-10 06:42] LABS: ARTERIAL BLOOD GAS HEMOGLOBIN 10.3 g/dL (11.7-17.4); ARTERIAL BLOOD GAS O2 CAPACITY 14.3 mL/dl (16-24); ARTERIAL BLOOD GAS O2 CONTENT 14.2 ML/dl (15-23); ARTERIAL BLOOD GAS O2 SAT 99.2 % (95-98); ARTERIAL BLOOD GAS PH 7.28 (7.35-7.45); ARTERIAL BLOOD GAS TCO2 45.1 mmol.L (22-28)
[2017-08-10 06:51] LABS: ALB/GLOB RATIO 0.9 (1.1-1.8); ALBUMIN 3.5 g/dL (3.0-4.8); ALT/SGPT 23 U/L (7-56); AST/SGOT 31 U/L (14-36); BLOOD UREA NITROGEN 43 mg/dL (7-21); CALCIUM 9.2 mg/dL (8.4-10.5); GFR AFRICAN-AMERICAN > 60; GFR NON-AFRICAN AMERICAN 54
[2017-08-10] MEDS ORDERED: Magnesium Sulfate 2 GM in Sodium Chloride 0.9% 100 ML IVPB ONE (06:58)
[2017-08-10 07:18] LABS: ARTERIAL BLOOD GAS HCO3 42.3 mmol/L (21-28); ARTERIAL BLOOD GAS PCO2 90 mm/Hg (35-45)
[2017-08-10] MEDS: Budesonide 0.25 mg/2 ml Inhal Susp UD IH SCH ×2 (07:42→19:30)
--- NOTE | 2017-08-10 07:55 | PN ---
DATE: 08/10/2017([id number]) PULMONARY NOTE SUBJECTIVE: The patient is currently on nasal cannula. She is mildly short of breath, but in no acute distress. She is awake and alert. PHYSICAL EXAMINATION: VITAL SIGNS: Temperature is 98.6, pulse 97, respirations 22, blood pressure 136/74. Oxygen saturation on nasal cannula is 92%. HEENT: Normocephalic, atraumatic. No JVD. CARDIOVASCULAR: Systolic ejection murmur at the lower left sternal border. No S3 gallop. LUNGS: Crackles at both bases - chronic. Less rhonchi. Less wheezing. EXTREMITIES: Mild edema. No cyanosis. No clubbing. Calves are nontender to palpation. GI: Abdomen is soft, nontender and nondistended. Bowel sounds are positive. SKIN: No acute rash. NEUROLOGIC: Limited at the present time. PERTINENT LABORATORY DATA: Chest x-ray was done this morning and reviewed. There are still chronic extensive changes noted, but they do appear less prominent this morning. Arterial blood gas was done on 4 L nasal cannula. Results are: PH 7.28, pCO2 of 90, pO2 of 114. IMPRESSION: 1. Respiratory failure. 2. Advanced chronic obstructive pulmonary disease. 3. Advanced interstitial lung disease. 4. Advanced coronary artery disease. 5. Diabetes mellitus. PLAN: The patient is currently on nasal cannula. She is mildly short of breath, but in no acute distress. She is awake and alert. I did discuss the case with the night nurse at length. The night nurse stated that the patient had a good night, but did take off her BiPAP at approximately 05:00 a.m. Thus, the arterial blood gas was done on nasal cannula. I did review the chest x-ray from this morning. There are extensive chronic changes noted. The changes do appear less prominent this morning. I have also reviewed the arterial blood gas - above. There remains significant CO2 retention, but the pH is significantly improved. The patient has been transitioned from 4 L nasal cannula to 2 L nasal cannula. I will repeat an arterial blood gas in approximately 1 hour, and be called with those results. Depending on the results, we will decide on additional BiPAP usage. On physical exam, there is less bronchospasm noted. I will continue with the current nebulizer treatments and intravenous steroids for now. The patient also remains on antibiotic therapy. There are no temperatures noted. The leukocytosis has resolved. The clinical status of the patient is certainly improved - compared to yesterday. However, again, her future status/prognosis does remain very guarded. I will discuss the above with the entire ICU team in the next few moments. I will also discuss the above with the attending physician. Randell Becker MD MTDD
[2017-08-10 08:14] LABS: ARTERIAL BLOOD GAS HCO3 36.7 mmol/L (21-28); ARTERIAL BLOOD GAS HEMOGLOBIN 10.3 g/dL (11.7-17.4); ARTERIAL BLOOD GAS O2 CAPACITY 14.1 mL/dl (16-24); ARTERIAL BLOOD GAS O2 CONTENT 12.5 ML/dl (15-23); ARTERIAL BLOOD GAS O2 SAT 88.6 % (95-98); ARTERIAL BLOOD GAS PCO2 68 mm/Hg (35-45); ARTERIAL BLOOD GAS PH 7.34 (7.35-7.45); ARTERIAL BLOOD GAS TCO2 38.8 mmol.L (22-28)
[2017-08-10] MEDS: Insulin Reg-MEDIUM-Coverage SC SCH ×4 (08:15→22:00)
--- NOTE | 2017-08-10 08:39 | PQF RESP ---
This form is a permanent part of the medical record Dr. Becker, Please provide a specificity for the diagnosis of respiratory failure in this patient with hx of COPD and pulmonary fibrosis/ILD. Clarification of your documentation is requested to better reflect the severity of illness and intensity of treatment of your patient. Indicators present [x] Use of Home Oxygen [x] Respiratory rate > 28 or <8/min (Labored respirations) [x] PCO2 > 50 mm Hg or (Hypercapnia) (somnolence) [] PaO2 < 60 mm Hg or Hypoxemia (confusion) [x] ABG blood gas pH < 7.35 [] SpO2 < 90% sat on Room Air [] Cyanosis [x] Unable to Speak in Full Sentences [] Use of Accessory Muscles / Tripoding [] Wheezing [] Other: [] Location in the medical record that reflects the above clinical findings: [] Treatment Provided: [] PHYSICIAN'S RESPONSE Based on your medical judgment of the clinical indicators outlined above, are you treating this patient for a known or suspected: [] Acute Respiratory Failure (hypoxia or hypercapnia) [] Chronic Respiratory Failure (hypoxia or hypercapnia) [x] Acute on Chronic Respiratory Failure (hypoxia or hypercapnia) [] Hypoxemia please specify ACUTE, CHRONIC or ACUTE on CHRONIC [] Other []_ [] If unable to determine, please check the box, sign and date. Present On Admission (POA) Indicator: [x] Present at the time of admission [] Not present at the time of admission [] Clinically Undetermined In responding to this query, please exercise your independent professional judgment. The fact that a question is asked does not imply that any particular answer is desired or expected. Thank you for your clarification on this documentation. 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 In theory, respiratory failure is defined as a Pa02 value of <60 mm/Hg or a PaC02 of >50 mm/Hg. However, these values may be affected by renal compensation. Respiratory failure may be acute or chronic. While acute respiratory failure is characterized by life-threatening derangement in arterial blood gases and acid-base balance, the manifestations of chronic respiratory failure are less dramatic and may not be as readily apparent. Classifications: Respiratory failure may be classified as hypoxemic (usually characterized by Pa02 of <60 mm/Hg) or hypercapnic (usually characterized by PaC02 >50 mm/Hg) and either may be acute or chronic. Chronic hypercapnic respiratory failure develops over time and allows for renal compensation and an increase in bicarbonate concentration; therefore the pH is usually only slightly decreased. The distinction between acute and chronic hypoxemic respiratory failure cannot readily be made on the basis of ABGs; the clinical markers of chronic hypoxemia, such as polythycemia or cor pulmonale suggest a long standing disorder (chronic hypoxemic respiratory failure). Clinical Indicators: dyspnea at rest or "chronic" dyspnea, concomitant conditions such as polycythemia or cor pulmonale, requirement for continuous oxygen support, forced expiratory volume in one second (FEV1) of 49 or less, pursed lip breathing, "barrel" chest, hyperinflation by CXR, muscle wasting, malnutrition/obesity, poor exercise capacity, peripheral edema, description as a "blue bloater" (usually associated with chronic, obstructive bronchitis) or "pink puffer" (usually associated with emphysema) Risks: Chronic Hypoxemic Respiratory Failure - COPD, pulmonary fibrosis, asthma , pulmonary arterial hypertension, granulomatous lung diseases, congenital heart disease, bronchiectasis, kyphoscoliosis, obesity; Chronic Hypercapnic Respiratory Failure - COPD, severe asthma, myasthenia gravis, polyneuropathy, polio, head and cervical spine injuries, obesity hypoventilation syndrome. Treatment: supplemental oxygen, bronchodilators, corticosteroids, adequate nutrition, lung transplant References: Am. J. Respir. Crit. Care Med. "Global Strategy for the Diagnosis, Management and Prevention of COPD: GOLD Exectuive Summary," Shana Boyer Anzueto - 2007; Proceedings of the [employer] [employer] "Mechanisms and Measurements of Dyspnea in COPD," Macy - 2006; WebMD; Respiratory Failure, Aubrey Novoa MD - 09/2005; Salo's Principles of Internal Medicine, 17th edition. Acute Respiratory Failure Acute Respiratory Failure indicators include: ~Respirations >28 ~Air hunger ~Use of accessory muscles of respiration ~Inability to speak in full sentences Cyanosis ~Pulse ox <90% RA or <95% on O2 pH <7.35 or >7.45 ~pO2 < 60 mm Hg (or 10mm below COPD patient's baseline) ~pCO2 >50mm Hg (or 10mm above COPD patient's baseline) "Respiratory failure may be assigned as a principal diagnosis when it is the condition established after study to be chiefly responsible for occasioning admission to the hospital. The fact that the respiratory failure was managed without intubation and mechanical ventilation does not preclude its use." [facility], 3rd Qtr., 1988, p. 7 MTDD
--- NOTE | 2017-08-10 08:49 | PN ---
DATE: 08/10/2017 SUBJECTIVE: The patient is seen and examined at bedside. She is comfortable. She talks full sentences. She has had an uneventful night. She is alert, awake and oriented x3. She is enjoying her breakfast. She is maintaining thoughtful conversation. OBJECTIVE: VITAL SIGNS: Heart rate 112, blood pressure 174/70, oxygen saturation 87 on 2 liters nasal cannula, respiratory rate 19. ENT: Head and neck atraumatic. LUNGS: Clear to auscultation bilaterally. Decreased breath sounds bilaterally. HEART: Regular rhythm and rate. S1, S2 normal. ABDOMEN: Soft, nontender, nondistended. MUSCULOSKELETAL: No C/C/E. NEUROLOGIC: The patient moves all extremities spontaneously. SKIN: Moist. PSYCHIATRIC: The patient is alert and oriented x3. LABORATORY DATA: WBC 8.4, hemoglobin 11.9, platelet count 219. Sodium 140, potassium 4.9, chloride 92, carbon dioxide 36, BUN 43, creatinine 1, glucose 366. MEDICATIONS: DuoNeb p.r.n. and every 6 hours, allopurinol, Xanax p.r.n., aspirin, Lipitor, budesonide, Plavix, Lasix 40 mg daily, Neurontin, Levemir insulin, isosorbide mononitrate, levofloxacin, lisinopril, Solu-Medrol 40 mg IV every 8 hours, metoprolol, ReQuip. ASSESSMENT AND PLAN: This is a 72-year-old lady who presented with hypercapnic respiratory failure secondary to chronic obstructive pulmonary disease exacerbation yesterday. She has substantially improved with antibiotics, bronchodilators, steroid taper and BiPAP. At present time, she is back to her baseline. We will continue with above therapy except for wean down BiPAP use to only at bedtime. Pulmonary Service following the patient as well. We will continue to target euvolemia, euglycemia, normothermia and oxygen saturation more than 90%. Okay to downgrade to Telemetry. DVT and GI prophylaxis. ccm time 40 min Nelson Stratton MD DIAMANTE
[2017-08-10] MEDS: Metoprolol Succinate 50 mg XL Tab PO SCH (09:26)
--- NOTE | 2017-08-10 09:30 | RAD ---
HISTORY: follow up COMPARISON: 08/09/2017 FINDINGS: LUNGS: There is slight improvement in the interstitial infiltrate. There is no focal consolidation PLEURA: No significant pleural effusion identified, no pneumothorax apparent. CARDIOVASCULAR: Normal. OSSEOUS STRUCTURES: No significant abnormalities. VISUALIZED UPPER ABDOMEN: Normal. OTHER FINDINGS: None. IMPRESSION: Slight improvement in interstitial infiltrate.
[2017-08-10] MEDS ORDERED: levoFLOXacin 750 mg in D5W 150 ML BAG IVPB SCH (10:00)
--- NOTE | 2017-08-10 11:27 | CP.CCUPN ---
<Michael Ireland - Last Filed: 08/10/17 11:19> CCU Subjective - Physician Review Subjective (Free Text): ICU Progress Note Pt seen and examined at bedside. No acute overnight events. Patient states that her breathing has improved. Patient offers no other complaints at this time. Pt denies CP, SOB, n/v/d, abdominal pain, fever, chills, ARROYO, or dizziness. CCU Objective - Vital Signs / Intake & Output Vital Signs (Last 4 hours): Vital Signs Pulse Resp BP Pulse Ox 08/10/17 09:43 112 H 24 92 L 08/10/17 09:42 113 H 23 91 L 08/10/17 09:41 113 H 24 91 L 08/10/17 09:40 114 H 23 91 L 08/10/17 09:39 113 H 22 92 L 08/10/17 09:38 114 H 24 82 L 08/10/17 09:37 108 H 20 87 L 08/10/17 09:36 111 H 26 H 92 L 08/10/17 09:35 116 H 24 90 L 08/10/17 09:34 117 H 42 H 84 L 08/10/17 09:33 110 H 21 92 L 08/10/17 09:32 112 H 89 L 08/10/17 09:31 113 H 23 92 L 08/10/17 09:30 112 H 22 89 L 08/10/17 09:29 112 H 23 90 L 08/10/17 09:28 114 H 25 H 88 L 08/10/17 09:27 114 H 24 88 L 08/10/17 09:26 115 H 29 H 144/66 89 L 08/10/17 09:25 116 H 144/66 93 L 08/10/17 09:24 115 H 29 H 91 L Intake and Output (Last 8hrs): Intake & Output 08/09/17 08/10/17 08/10/17 22:59 06:59 14:59 Intake Total 750 Output Total 900 Balance -150 Intake: Oral 750 Output: Urine 900 Urethral (Clements) 900 - Physical Exam Head: Positive for: Atraumatic, Normocephalic Pupils: Positive for: PERRL Extroacular Muscles: Positive for: EOMI Conjunctiva: Positive for: Normal Mouth: Positive for: Moist Mucous Membranes Neck: Positive for: Normal Range of Motion Respiratory/Chest: Positive for: Wheezes (base b/l), Rhonchi. Negative for: Respiratory Distress, Accessory Muscle Use, Rales, Tachypneic Cardiovascular: Positive for: Regular Rate and Rhythm, Normal S1, S2. Negative for: Murmurs Abdomen: Negative for: Tenderness, Distention, Peritoneal Signs Back: Positive for: Normal Inspection Upper Extremity: Positive for: Normal Inspection. Negative for: Cyanosis, Edema Lower Extremity: Positive for: Normal Inspection. Negative for: Edema Neurological: Positive for: Motor Func Grossly Intact Skin: Positive for: Warm, Dry, Normal Color. Negative for: Rashes Psychiatric: Positive for: Alert, Oriented x 3 - Medications Active Medications: Active Medications Generic Name Dose Route Start Last Admin Trade Name Freq PRN Reason Stop Dose Admin Albuterol/Ipratropium 3 ml 08/10/17 02:00 08/10/17 07:42 Duoneb 3 Mg/0.5 Mg (3 Ml) Ud IH 3 ml [id number] BRIANNA Administration Albuterol/Ipratropium 3 ml 08/09/17 21:27 Duoneb 3 Mg/0.5 Mg (3 Ml) Ud IH Q2H PRN Shortness of Breath Allopurinol 300 mg 08/10/17 10:00 08/10/17 09:27 Zyloprim PO 300 mg DAILY BRIANNA Administration Alprazolam 0.25 mg 08/09/17 23:12 Xanax PO 08/17/17 10:01 TID PRN Anxiety Protocol Aspirin 81 mg 08/09/17 23:30 08/10/17 09:23 Ecotrin PO 81 mg DAILY BRIANNA Administration Atorvastatin Calcium 20 mg 08/10/17 10:00 08/10/17 09:26 Lipitor PO 20 mg DAILY BRIANNA Administration Budesonide 0.25 mg 08/09/17 20:00 08/10/17 07:42 Pulmicort Respules IH 0.25 mg [id number] BRIANNA Administration Clopidogrel Bisulfate 75 mg 08/09/17 23:30 08/10/17 09:23 Plavix PO 75 mg DAILY BRIANNA Administration Furosemide 40 mg 08/10/17 10:00 08/10/17 09:25 Lasix PO 40 mg DAILY BRIANNA Administration Gabapentin 200 mg 08/09/17 23:00 08/10/17 09:23 Neurontin PO 200 mg TID BRIANNA Administration Protocol Guaifenesin/Dextromethorphan 5 ml 08/09/17 18:04 08/09/17 20:22 Robitussin Dm PO 5 ml Q4H PRN Administration Cough Insulin Detemir 25 unit 08/09/17 22:00 08/09/17 21:57 Levemir SC 25 unit HS BRIANNA Administration Insulin Human Regular 0 units 08/09/17 22:00 08/10/17 08:15 Humulin R Med SC 8 units ACHS BRIANNA Administration Protocol Isosorbide Mononitrate 60 mg 08/09/17 23:30 08/10/17 09:26 Imdur PO 60 mg DAILY BRIANNA Administration Levofloxacin/Dextrose 750 mg 08/10/17 10:00 08/10/17 09:26 Levaquin 750mg IVPB 750 mg DAILY BRIANNA Administration Protocol Lisinopril 30 mg 08/09/17 23:30 08/10/17 09:25 Zestril PO 30 mg DAILY BRIANNA Administration Methylprednisolone 40 mg 08/09/17 10:00 08/10/17 09:29 Solu-Medrol IVP 40 mg Q8H BRIANNA Administration Metoprolol Succinate 50 mg 08/10/17 10:00 08/10/17 09:26 Toprol Xl PO 50 mg DAILY BRIANNA Administration Ropinirole HCl 3 mg 08/09/17 22:45 08/09/17 23:00 Requip PO 3 mg HS BRIANNA Administration - Patient Studies Lab Studies: Lab Studies 08/10/17 08/10/17 08/10/17 Range/Units 08:10 08:05 06:37 WBC (4.5-11.0) 10^3/ul RBC (3.5-6.1) 10^6/uL Hgb (12.0-16.0) g/dL Hct (36.0-48.0) % MCV (80.0-105.0) fl MCH (25.0-35.0) pg MCHC (31.0-37.0) g/dl RDW (11.5-14.5) % Plt Count (120.0-450.0) 10^3/uL MPV (7.0-11.0) fl Gran % (50.0-68.0) % Lymph % (Auto) (22.0-35.0) % [place] % (Auto) (1.0-6.0) % Eos % (Auto) (1.5-5.0) % Baso % (Auto) (0.0-3.0) % Gran # (1.4-6.5) Lymph # (Auto) (1.2-3.4) [place] # (Auto) (0.1-0.6) Eos # (Auto) (0.0-0.7) Baso # (Auto) (0.0-2.0) K/mm3 pCO2 68 H 90 H* (35-45) mm/Hg pO2 50.0 L 114.0 H (80-100) mm/Hg HCO3 36.7 H 42.3 H* (21-28) mmol/L ABG pH 7.34 L 7.28 L (7.35-7.45) ABG Total CO2 38.8 H 45.1 H (22-28) mmol.L ABG O2 Saturation 88.6 L 99.2 H (95-98) % ABG O2 Content 12.5 L 14.2 L (15-23) ML/dl ABG Base Excess 9.0 H 12.7 H (-2.0-3.0) mmol/L ABG Hemoglobin 10.3 L 10.3 L (11.7-17.4) g/dL ABG Carboxyhemoglobin 2.0 H 2.1 H (0.5-1.5) % POC ABG HHb (Measured) 11.1 H 0.8 (0-5) % ABG Methemoglobin 0.7 0.5 (0.0-3.0) % ABG O2 Capacity 14.1 L 14.3 L (16-24) mL/dl Hgb O2 Saturation 86.2 L 96.6 (95.0-98.0) % FiO2 28.0 36.0 % Sodium (132-148) mmol/L Potassium (3.6-5.0) mmol/L Chloride (98-107) mmol/L Carbon Dioxide (21-33) mmol/L Anion Gap (10-20) BUN (7-21) mg/dL Creatinine (0.7-1.2) mg/dl Est GFR ( Amer) Est GFR (Non-Af Amer) POC Glucose (mg/dL) 366 H (65-110) mg/dL Random Glucose (70-110) mg/dL Calcium (8.4-10.5) mg/dL Phosphorus (2.5-4.5) mg/dL Magnesium (1.7-2.2) mg/dL Total Bilirubin (0.2-1.3) mg/dL AST (14-36) U/L ALT (7-56) U/L Alkaline Phosphatase (38-126) U/L Total Protein (5.8-8.3) g/dL Albumin (3.0-4.8) g/dL Globulin gm/dL Albumin/Globulin Ratio (1.1-1.8) 08/10/17 08/10/17 08/10/17 Range/Units 05:30 05:30 02:08 WBC 8.4 D (4.5-11.0) 10^3/ul RBC 4.25 (3.5-6.1) 10^6/uL Hgb 11.9 L (12.0-16.0) g/dL Hct 39.6 (36.0-48.0) % MCV 93.2 (80.0-105.0) fl MCH 28.0 (25.0-35.0) pg MCHC 30.1 L (31.0-37.0) g/dl RDW 14.4 (11.5-14.5) % Plt Count 290 (120.0-450.0) 10^3/uL MPV 9.8 (7.0-11.0) fl Gran % 86.1 H (50.0-68.0) % Lymph % (Auto) 9.6 L (22.0-35.0) % [place] % (Auto) 4.3 (1.0-6.0) % Eos % (Auto) 0.0 L (1.5-5.0) % Baso % (Auto) 0.0 (0.0-3.0) % Gran # 7.27 H (1.4-6.5) Lymph # (Auto) 0.8 L (1.2-3.4) [place] # (Auto) 0.4 (0.1-0.6) Eos # (Auto) 0.0 (0.0-0.7) Baso # (Auto) 0.00 (0.0-2.0) K/mm3 pCO2 (35-45) mm/Hg pO2 (80-100) mm/Hg HCO3 (21-28) mmol/L ABG pH (7.35-7.45) ABG Total CO2 (22-28) mmol.L ABG O2 Saturation (95-98) % ABG O2 Content (15-23) ML/dl ABG Base Excess (-2.0-3.0) mmol/L ABG Hemoglobin (11.7-17.4) g/dL ABG Carboxyhemoglobin (0.5-1.5) % POC ABG HHb (Measured) (0-5) % ABG Methemoglobin (0.0-3.0) % ABG O2 Capacity (16-24) mL/dl Hgb O2 Saturation (95.0-98.0) % FiO2 % Sodium 140 (132-148) mmol/L Potassium 4.9 (3.6-5.0) mmol/L Chloride 92 L (98-107) mmol/L Carbon Dioxide 36 H (21-33) mmol/L Anion Gap 17 (10-20) BUN 43 H (7-21) mg/dL Creatinine 1.0 (0.7-1.2) mg/dl Est GFR ( Amer) > 60 Est GFR (Non-Af Amer) 54 POC Glucose (mg/dL) 381 H (65-110) mg/dL Random Glucose 406 H* D (70-110) mg/dL Calcium 9.2 (8.4-10.5) mg/dL Phosphorus 4.3 (2.5-4.5) mg/dL Magnesium 1.6 L (1.7-2.2) mg/dL Total Bilirubin 0.2 (0.2-1.3) mg/dL AST 31 (14-36) U/L ALT 23 (7-56) U/L Alkaline Phosphatase 82 (38-126) U/L Total Protein 7.3 (5.8-8.3) g/dL Albumin 3.5 (3.0-4.8) g/dL Globulin 3.7 gm/dL Albumin/Globulin Ratio 0.9 L (1.1-1.8) 08/09/17 08/09/17 08/09/17 Range/Units 21:29 16:07 13:58 WBC (4.5-11.0) 10^3/ul RBC (3.5-6.1) 10^6/uL Hgb (12.0-16.0) g/dL Hct (36.0-48.0) % MCV (80.0-105.0) fl MCH (25.0-35.0) pg MCHC (31.0-37.0) g/dl RDW (11.5-14.5) % Plt Count (120.0-450.0) 10^3/uL MPV (7.0-11.0) fl Gran % (50.0-68.0) % Lymph % (Auto) (22.0-35.0) % [place] % (Auto) (1.0-6.0) % Eos % (Auto) (1.5-5.0) % Baso % (Auto) (0.0-3.0) % Gran # (1.4-6.5) Lymph # (Auto) (1.2-3.4) [place] # (Auto) (0.1-0.6) Eos # (Auto) (0.0-0.7) Baso # (Auto) (0.0-2.0) K/mm3 pCO2 84 H* (35-45) mm/Hg pO2 67.0 L (80-100) mm/Hg HCO3 40.4 H* (21-28) mmol/L ABG pH 7.29 L (7.35-7.45) ABG Total CO2 43.0 H (22-28) mmol.L ABG O2 Saturation 95.2 (95-98) % ABG O2 Content 15.5 (15-23) ML/dl ABG Base Excess 10.7 H (-2.0-3.0) mmol/L ABG Hemoglobin 11.9 (11.7-17.4) g/dL ABG Carboxyhemoglobin 2.1 H (0.5-1.5) % POC ABG HHb (Measured) 4.7 (0-5) % ABG Methemoglobin 1.0 (0.0-3.0) % ABG O2 Capacity 16.3 (16-24) mL/dl Hgb O2 Saturation 92.3 L (95.0-98.0) % FiO2 35.0 % Sodium (132-148) mmol/L Potassium (3.6-5.0) mmol/L Chloride (98-107) mmol/L Carbon Dioxide (21-33) mmol/L Anion Gap (10-20) BUN (7-21) mg/dL Creatinine (0.7-1.2) mg/dl Est GFR ( Amer) Est GFR (Non-Af Amer) POC Glucose (mg/dL) 426 H* 271 H (65-110) mg/dL Random Glucose (70-110) mg/dL Calcium (8.4-10.5) mg/dL Phosphorus (2.5-4.5) mg/dL Magnesium (1.7-2.2) mg/dL Total Bilirubin (0.2-1.3) mg/dL AST (14-36) U/L ALT (7-56) U/L Alkaline Phosphatase (38-126) U/L Total Protein (5.8-8.3) g/dL Albumin (3.0-4.8) g/dL Globulin gm/dL Albumin/Globulin Ratio (1.1-1.8) /01/17 Range/Units 11:17 WBC (4.5-11.0) 10^3/ul RBC (3.5-6.1) 10^6/uL Hgb (12.0-16.0) g/dL Hct (36.0-48.0) % MCV (80.0-105.0) fl MCH (25.0-35.0) pg MCHC (31.0-37.0) g/dl RDW (11.5-14.5) % Plt Count (120.0-450.0) 10^3/uL MPV (7.0-11.0) fl Gran % (50.0-68.0) % Lymph % (Auto) (22.0-35.0) % [place] % (Auto) (1.0-6.0) % Eos % (Auto) (1.5-5.0) % Baso % (Auto) (0.0-3.0) % Gran # (1.4-6.5) Lymph # (Auto) (1.2-3.4) [place] # (Auto) (0.1-0.6) Eos # (Auto) (0.0-0.7) Baso # (Auto) (0.0-2.0) K/mm3 pCO2 (35-45) mm/Hg pO2 (80-100) mm/Hg HCO3 (21-28) mmol/L ABG pH (7.35-7.45) ABG Total CO2 (22-28) mmol.L ABG O2 Saturation (95-98) % ABG O2 Content (15-23) ML/dl ABG Base Excess (-2.0-3.0) mmol/L ABG Hemoglobin (11.7-17.4) g/dL ABG Carboxyhemoglobin (0.5-1.5) % POC ABG HHb (Measured) (0-5) % ABG Methemoglobin (0.0-3.0) % ABG O2 Capacity (16-24) mL/dl Hgb O2 Saturation (95.0-98.0) % FiO2 % Sodium (132-148) mmol/L Potassium (3.6-5.0) mmol/L Chloride (98-107) mmol/L Carbon Dioxide (21-33) mmol/L Anion Gap (10-20) BUN (7-21) mg/dL Creatinine (0.7-1.2) mg/dl Est GFR ( Amer) Est GFR (Non-Af Amer) POC Glucose (mg/dL) 295 H (65-110) mg/dL Random Glucose (70-110) mg/dL Calcium (8.4-10.5) mg/dL Phosphorus (2.5-4.5) mg/dL Magnesium (1.7-2.2) mg/dL Total Bilirubin (0.2-1.3) mg/dL AST (14-36) U/L ALT (7-56) U/L Alkaline Phosphatase (38-126) U/L Total Protein (5.8-8.3) g/dL Albumin (3.0-4.8) g/dL Globulin gm/dL Albumin/Globulin Ratio (1.1-1.8) Laboratory Results - last 24 hr 08/09/17 08/09/17 08/09/17 11:17 13:58 16:07 WBC RBC Hgb Hct MCV MCH MCHC RDW Plt Count MPV Gran % Lymph % (Auto) [place] % (Auto) Eos % (Auto) Baso % (Auto) Gran # Lymph # (Auto) [place] # (Auto) Eos # (Auto) Baso # (Auto) pCO2 84 H* pO2 67.0 L HCO3 40.4 H* ABG pH 7.29 L ABG Total CO2 43.0 H ABG O2 Saturation 95.2 ABG O2 Content 15.5 ABG Base Excess 10.7 H ABG Hemoglobin 11.9 ABG Carboxyhemoglobin 2.1 H POC ABG HHb (Measured) 4.7 ABG Methemoglobin 1.0 ABG O2 Capacity 16.3 Hgb O2 Saturation 92.3 L FiO2 35.0 Sodium Potassium Chloride Carbon Dioxide Anion Gap BUN Creatinine Est GFR ( Amer) Est GFR (Non-Af Amer) POC Glucose (mg/dL) 295 H 271 H Random Glucose Calcium Phosphorus Magnesium Total Bilirubin AST ALT Alkaline Phosphatase Total Protein Albumin Globulin Albumin/Globulin Ratio 08/09/17 08/10/17 08/10/17 21:29 02:08 05:30 WBC 8.4 D RBC 4.25 Hgb 11.9 L Hct 39.6 MCV 93.2 MCH 28.0 MCHC 30.1 L RDW 14.4 Plt Count 290 MPV 9.8 Gran % 86.1 H Lymph % (Auto) 9.6 L [place] % (Auto) 4.3 Eos % (Auto) 0.0 L Baso % (Auto) 0.0 Gran # 7.27 H Lymph # (Auto) 0.8 L [place] # (Auto) 0.4 Eos # (Auto) 0.0 Baso # (Auto) 0.00 pCO2 pO2 HCO3 ABG pH ABG Total CO2 ABG O2 Saturation ABG O2 Content ABG Base Excess ABG Hemoglobin ABG Carboxyhemoglobin POC ABG HHb (Measured) ABG Methemoglobin ABG O2 Capacity Hgb O2 Saturation FiO2 Sodium Potassium Chloride Carbon Dioxide Anion Gap BUN Creatinine Est GFR ( Amer) Est GFR (Non-Af Amer) POC Glucose (mg/dL) 426 H* 381 H Random Glucose Calcium Phosphorus Magnesium Total Bilirubin AST ALT Alkaline Phosphatase Total Protein Albumin Globulin Albumin/Globulin Ratio 08/10/17 08/10/17 08/10/17 05:30 06:37 08:05 WBC RBC Hgb Hct MCV MCH MCHC RDW Plt Count MPV Gran % Lymph % (Auto) [place] % (Auto) Eos % (Auto) Baso % (Auto) Gran # Lymph # (Auto) [place] # (Auto) Eos # (Auto) Baso # (Auto) pCO2 90 H* 68 H pO2 114.0 H 50.0 L HCO3 42.3 H* 36.7 H ABG pH 7.28 L 7.34 L ABG Total CO2 45.1 H 38.8 H ABG O2 Saturation 99.2 H 88.6 L ABG O2 Content 14.2 L 12.5 L ABG Base Excess 12.7 H 9.0 H ABG Hemoglobin 10.3 L 10.3 L ABG Carboxyhemoglobin 2.1 H 2.0 H POC ABG HHb (Measured) 0.8 11.1 H ABG Methemoglobin 0.5 0.7 ABG O2 Capacity 14.3 L 14.1 L Hgb O2 Saturation 96.6 86.2 L FiO2 36.0 28.0 Sodium 140 Potassium 4.9 Chloride 92 L Carbon Dioxide 36 H Anion Gap 17 BUN 43 H Creatinine 1.0 Est GFR ( Amer) > 60 Est GFR (Non-Af Amer) 54 POC Glucose (mg/dL) Random Glucose 406 H* D Calcium 9.2 Phosphorus 4.3 Magnesium 1.6 L Total Bilirubin 0.2 AST 31 ALT 23 Alkaline Phosphatase 82 Total Protein 7.3 Albumin 3.5 Globulin 3.7 Albumin/Globulin Ratio 0.9 L 08/10/17 08:10 WBC RBC Hgb Hct MCV MCH MCHC RDW Plt Count MPV Gran % Lymph % (Auto) [place] % (Auto) Eos % (Auto) Baso % (Auto) Gran # Lymph # (Auto) [place] # (Auto) Eos # (Auto) Baso # (Auto) pCO2 pO2 HCO3 ABG pH ABG Total CO2 ABG O2 Saturation ABG O2 Content ABG Base Excess ABG Hemoglobin ABG Carboxyhemoglobin POC ABG HHb (Measured) ABG Methemoglobin ABG O2 Capacity Hgb O2 Saturation FiO2 Sodium Potassium Chloride Carbon Dioxide Anion Gap BUN Creatinine Est GFR ( Amer) Est GFR (Non-Af Amer) POC Glucose (mg/dL) 366 H Random Glucose Calcium Phosphorus Magnesium Total Bilirubin AST ALT Alkaline Phosphatase Total Protein Albumin Globulin Albumin/Globulin Ratio Fingerstick Blood Sugar Results: 366 Critical Care Progress Note - Nutrition Nutrition: Nutrition Category Date Time Status Heart Healthy Diet [DIET] Diets 08/09/17 Dinner Ordered Assessment/Plan - Assessment and Plan (Free Text) Assessment: 72 yo F with PMH of COPD on home O2, ILD/fibrosis, CAD with stents, DM, and HTN admitted to the ICU due to hypercapnic respiratory failure. Patient respiratory status improved with IV steroids, antibiotics, nebulized breathing treatments, and BIPAP. Patient will be transferred to telemetry. Plan: Neuro: - AAOx3 - AMS resolved - Maintain normothermia CV: - Hemodynamically stable - Cont Toprol XL, Imdur, lisinopril, lasix - Maintain MAP > 65 Pulm: - CXR showed slight improvement in interstitial infiltrate - ABG showed decreased CO2 retention and improved pH - Maintain O2 between 88-92% - O2 via NC - Duoneb scheduled and PRN - Cont pulmicort - Tapered solumedrol to 40 mg q12h - BIPAP HS - Pulmonology consulted GI: - Protonix for GI PPx - Heart healthy diet Renal: - Hypomagnesmic, repleted - Cont to monitor electrolytes and replete as needed - Avoid nephrotoxic medications - Maintain euvolemia ID: - Levaquin IVPB daily - Cultures pending Endo: - Maintain euglycemia - Levemir HS - ISS-medium - Accuchecks q4h Pt seen and discussed in detail with Dr. Stratton. Edi Ireland, PGY1 <Nelson Stratton - Last Filed: 08/10/17 15:57> CCU Objective - Vital Signs / Intake & Output Vital Signs (Last 4 hours): Vital Signs Temp Pulse Resp BP 08/10/17 14:17 98.3 F 110 H 16 140/74 Intake and Output (Last 8hrs): Intake & Output 08/10/17 08/10/17 08/10/17 06:59 14:59 22:59 Intake Total 750 Output Total 900 Balance -150 Intake: Oral 750 Output: Urine 900 Urethral (Clements) 900 - Medications Active Medications: Active Medications Generic Name Dose Route Start Last Admin Trade Name Freq PRN Reason Stop Dose Admin Albuterol/Ipratropium 3 ml 08/10/17 02:00 08/10/17 14:02 Duoneb 3 Mg/0.5 Mg (3 Ml) Ud IH 3 ml [id number] BRIANNA Administration Albuterol/Ipratropium 3 ml 08/09/17 21:27 Duoneb 3 Mg/0.5 Mg (3 Ml) Ud IH Q2H PRN Shortness of Breath Allopurinol 300 mg 08/10/17 10:00 08/10/17 09:27 Zyloprim PO 300 mg DAILY BRIANNA Administration Alprazolam 0.25 mg 08/09/17 23:12 Xanax PO 08/17/17 10:01 TID PRN Anxiety Protocol Aspirin 81 mg 08/09/17 23:30 08/10/17 09:23 Ecotrin PO 81 mg DAILY BRIANNA Administration Atorvastatin Calcium 20 mg 08/10/17 10:00 08/10/17 09:26 Lipitor PO 20 mg DAILY BRIANNA Administration Budesonide 0.25 mg 08/09/17 20:00 08/10/17 07:42 Pulmicort Respules IH 0.25 mg [id number] BRIANNA Administration Clopidogrel Bisulfate 75 mg 08/09/17 23:30 08/10/17 09:23 Plavix PO 75 mg DAILY BRIANNA Administration Furosemide 40 mg 08/10/17 10:00 08/10/17 09:25 Lasix PO 40 mg DAILY BRIANNA Administration Gabapentin 200 mg 08/09/17 23:00 08/10/17 14:23 Neurontin PO 200 mg TID BRIANNA Administration Protocol Guaifenesin/Dextromethorphan 5 ml 08/09/17 18:04 08/09/17 20:22 Robitussin Dm PO 5 ml Q4H PRN Administration Cough Insulin Detemir 25 unit 08/09/17 22:00 08/09/17 21:57 Levemir SC 25 unit HS BRIANNA Administration Insulin Human Regular 0 units 08/09/17 22:00 08/10/17 12:18 Humulin R Med SC 7 units ACHS BRIANNA Administration Protocol Insulin Lispro Protam/Lispro Human 15 units 08/10/17 16:30 Humalog Mix 75/25 SC [facility] Isosorbide Mononitrate 60 mg 08/09/17 23:30 08/10/17 09:26 Imdur PO 60 mg DAILY BRIANNA Administration Levofloxacin 750 mg 08/11/17 10:00 Levaquin PO Q48H [facility] Lisinopril 30 mg 08/09/17 23:30 08/10/17 09:25 Zestril PO 30 mg DAILY BRIANNA Administration Methylprednisolone 40 mg 08/10/17 22:00 Solu-Medrol IVP Q12 BRIANNA Metoprolol Succinate 50 mg 08/10/17 10:00 08/10/17 09:26 Toprol Xl PO 50 mg DAILY BRIANNA Administration Pantoprazole Sodium 40 mg 08/11/17 06:00 Protonix Ec Tab PO 0600 BRIANNA Ropinirole HCl 3 mg 08/09/17 22:45 08/09/17 23:00 Requip PO 3 mg HS BRIANNA Administration - Patient Studies Lab Studies: Lab Studies 08/10/17 08/10/17 08/10/17 Range/Units 12:00 08:10 08:05 WBC (4.5-11.0) 10^3/ul RBC (3.5-6.1) 10^6/uL Hgb (12.0-16.0) g/dL Hct (36.0-48.0) % MCV (80.0-105.0) fl MCH (25.0-35.0) pg MCHC (31.0-37.0) g/dl RDW (11.5-14.5) % Plt Count (120.0-450.0) 10^3/uL MPV (7.0-11.0) fl Gran % (50.0-68.0) % Lymph % (Auto) (22.0-35.0) % [place] % (Auto) (1.0-6.0) % Eos % (Auto) (1.5-5.0) % Baso % (Auto) (0.0-3.0) % Gran # (1.4-6.5) Lymph # (Auto) (1.2-3.4) [place] # (Auto) (0.1-0.6) Eos # (Auto) (0.0-0.7) Baso # (Auto) (0.0-2.0) K/mm3 pCO2 68 H (35-45) mm/Hg pO2 50.0 L (80-100) mm/Hg HCO3 36.7 H (21-28) mmol/L ABG pH 7.34 L (7.35-7.45) ABG Total CO2 38.8 H (22-28) mmol.L ABG O2 Saturation 88.6 L (95-98) % ABG O2 Content 12.5 L (15-23) ML/dl ABG Base Excess 9.0 H (-2.0-3.0) mmol/L ABG Hemoglobin 10.3 L (11.7-17.4) g/dL ABG Carboxyhemoglobin 2.0 H (0.5-1.5) % POC ABG HHb (Measured) 11.1 H (0-5) % ABG Methemoglobin 0.7 (0.0-3.0) % ABG O2 Capacity 14.1 L (16-24) mL/dl Hgb O2 Saturation 86.2 L (95.0-98.0) % FiO2 28.0 % Sodium (132-148) mmol/L Potassium (3.6-5.0) mmol/L Chloride (98-107) mmol/L Carbon Dioxide (21-33) mmol/L Anion Gap (10-20) BUN (7-21) mg/dL Creatinine (0.7-1.2) mg/dl Est GFR ( Amer) Est GFR (Non-Af Amer) POC Glucose (mg/dL) 341 H 366 H (65-110) mg/dL Random Glucose (70-110) mg/dL Calcium (8.4-10.5) mg/dL Phosphorus (2.5-4.5) mg/dL Magnesium (1.7-2.2) mg/dL Total Bilirubin (0.2-1.3) mg/dL AST (14-36) U/L ALT (7-56) U/L Alkaline Phosphatase (38-126) U/L Total Protein (5.8-8.3) g/dL Albumin (3.0-4.8) g/dL Globulin gm/dL Albumin/Globulin Ratio (1.1-1.8) 08/10/17 08/10/17 08/10/17 Range/Units 06:37 05:30 05:30 WBC 8.4 D (4.5-11.0) 10^3/ul RBC 4.25 (3.5-6.1) 10^6/uL Hgb 11.9 L (12.0-16.0) g/dL Hct 39.6 (36.0-48.0) % MCV 93.2 (80.0-105.0) fl MCH 28.0 (25.0-35.0) pg MCHC 30.1 L (31.0-37.0) g/dl RDW 14.4 (11.5-14.5) % Plt Count 290 (120.0-450.0) 10^3/uL MPV 9.8 (7.0-11.0) fl Gran % 86.1 H (50.0-68.0) % Lymph % (Auto) 9.6 L (22.0-35.0) % [place] % (Auto) 4.3 (1.0-6.0) % Eos % (Auto) 0.0 L (1.5-5.0) % Baso % (Auto) 0.0 (0.0-3.0) % Gran # 7.27 H (1.4-6.5) Lymph # (Auto) 0.8 L (1.2-3.4) [place] # (Auto) 0.4 (0.1-0.6) Eos # (Auto) 0.0 (0.0-0.7) Baso # (Auto) 0.00 (0.0-2.0) K/mm3 pCO2 90 H* (35-45) mm/Hg pO2 114.0 H (80-100) mm/Hg HCO3 42.3 H* (21-28) mmol/L ABG pH 7.28 L (7.35-7.45) ABG Total CO2 45.1 H (22-28) mmol.L ABG O2 Saturation 99.2 H (95-98) % ABG O2 Content 14.2 L (15-23) ML/dl ABG Base Excess 12.7 H (-2.0-3.0) mmol/L ABG Hemoglobin 10.3 L (11.7-17.4) g/dL ABG Carboxyhemoglobin 2.1 H (0.5-1.5) % POC ABG HHb (Measured) 0.8 (0-5) % ABG Methemoglobin 0.5 (0.0-3.0) % ABG O2 Capacity 14.3 L (16-24) mL/dl Hgb O2 Saturation 96.6 (95.0-98.0) % FiO2 36.0 % Sodium 140 (132-148) mmol/L Potassium 4.9 (3.6-5.0) mmol/L Chloride 92 L (98-107) mmol/L Carbon Dioxide 36 H (21-33) mmol/L Anion Gap 17 (10-20) BUN 43 H (7-21) mg/dL Creatinine 1.0 (0.7-1.2) mg/dl Est GFR ( Amer) > 60 Est GFR (Non-Af Amer) 54 POC Glucose (mg/dL) (65-110) mg/dL Random Glucose 406 H* D (70-110) mg/dL Calcium 9.2 (8.4-10.5) mg/dL Phosphorus 4.3 (2.5-4.5) mg/dL Magnesium 1.6 L (1.7-2.2) mg/dL Total Bilirubin 0.2 (0.2-1.3) mg/dL AST 31 (14-36) U/L ALT 23 (7-56) U/L Alkaline Phosphatase 82 (38-126) U/L Total Protein 7.3 (5.8-8.3) g/dL Albumin 3.5 (3.0-4.8) g/dL Globulin 3.7 gm/dL Albumin/Globulin Ratio 0.9 L (1.1-1.8) 08/10/17 08/09/17 08/09/17 Range/Units 02:08 21:29 16:07 WBC (4.5-11.0) 10^3/ul RBC (3.5-6.1) 10^6/uL Hgb (12.0-16.0) g/dL Hct (36.0-48.0) % MCV (80.0-105.0) fl MCH (25.0-35.0) pg MCHC (31.0-37.0) g/dl RDW (11.5-14.5) % Plt Count (120.0-450.0) 10^3/uL MPV (7.0-11.0) fl Gran % (50.0-68.0) % Lymph % (Auto) (22.0-35.0) % [place] % (Auto) (1.0-6.0) % Eos % (Auto) (1.5-5.0) % Baso % (Auto) (0.0-3.0) % Gran # (1.4-6.5) Lymph # (Auto) (1.2-3.4) [place] # (Auto) (0.1-0.6) Eos # (Auto) (0.0-0.7) Baso # (Auto) (0.0-2.0) K/mm3 pCO2 (35-45) mm/Hg pO2 (80-100) mm/Hg HCO3 (21-28) mmol/L ABG pH (7.35-7.45) ABG Total CO2 (22-28) mmol.L ABG O2 Saturation (95-98) % ABG O2 Content (15-23) ML/dl ABG Base Excess (-2.0-3.0) mmol/L ABG Hemoglobin (11.7-17.4) g/dL ABG Carboxyhemoglobin (0.5-1.5) % POC ABG HHb (Measured) (0-5) % ABG Methemoglobin (0.0-3.0) % ABG O2 Capacity (16-24) mL/dl Hgb O2 Saturation (95.0-98.0) % FiO2 % Sodium (132-148) mmol/L Potassium (3.6-5.0) mmol/L Chloride (98-107) mmol/L Carbon Dioxide (21-33) mmol/L Anion Gap (10-20) BUN (7-21) mg/dL Creatinine (0.7-1.2) mg/dl Est GFR ( Amer) Est GFR (Non-Af Amer) POC Glucose (mg/dL) 381 H 426 H* 271 H (65-110) mg/dL Random Glucose (70-110) mg/dL Calcium (8.4-10.5) mg/dL Phosphorus (2.5-4.5) mg/dL Magnesium (1.7-2.2) mg/dL Total Bilirubin (0.2-1.3) mg/dL AST (14-36) U/L ALT (7-56) U/L Alkaline Phosphatase (38-126) U/L Total Protein (5.8-8.3) g/dL Albumin (3.0-4.8) g/dL Globulin gm/dL Albumin/Globulin Ratio (1.1-1.8) 05/10/18 Range/Units 11:17 WBC (4.5-11.0) 10^3/ul RBC (3.5-6.1) 10^6/uL Hgb (12.0-16.0) g/dL Hct (36.0-48.0) % MCV (80.0-105.0) fl MCH (25.0-35.0) pg MCHC (31.0-37.0) g/dl RDW (11.5-14.5) % Plt Count (120.0-450.0) 10^3/uL MPV (7.0-11.0) fl Gran % (50.0-68.0) % Lymph % (Auto) (22.0-35.0) % [place] % (Auto) (1.0-6.0) % Eos % (Auto) (1.5-5.0) % Baso % (Auto) (0.0-3.0) % Gran # (1.4-6.5) Lymph # (Auto) (1.2-3.4) [place] # (Auto) (0.1-0.6) Eos # (Auto) (0.0-0.7) Baso # (Auto) (0.0-2.0) K/mm3 pCO2 (35-45) mm/Hg pO2 (80-100) mm/Hg HCO3 (21-28) mmol/L ABG pH (7.35-7.45) ABG Total CO2 (22-28) mmol.L ABG O2 Saturation (95-98) % ABG O2 Content (15-23) ML/dl ABG Base Excess (-2.0-3.0) mmol/L ABG Hemoglobin (11.7-17.4) g/dL ABG Carboxyhemoglobin (0.5-1.5) % POC ABG HHb (Measured) (0-5) % ABG Methemoglobin (0.0-3.0) % ABG O2 Capacity (16-24) mL/dl Hgb O2 Saturation (95.0-98.0) % FiO2 % Sodium (132-148) mmol/L Potassium (3.6-5.0) mmol/L Chloride (98-107) mmol/L Carbon Dioxide (21-33) mmol/L Anion Gap (10-20) BUN (7-21) mg/dL Creatinine (0.7-1.2) mg/dl Est GFR ( Amer) Est GFR (Non-Af Amer) POC Glucose (mg/dL) 295 H (65-110) mg/dL Random Glucose (70-110) mg/dL Calcium (8.4-10.5) mg/dL Phosphorus (2.5-4.5) mg/dL Magnesium (1.7-2.2) mg/dL Total Bilirubin (0.2-1.3) mg/dL AST (14-36) U/L ALT (7-56) U/L Alkaline Phosphatase (38-126) U/L Total Protein (5.8-8.3) g/dL Albumin (3.0-4.8) g/dL Globulin gm/dL Albumin/Globulin Ratio (1.1-1.8) Laboratory Results - last 24 hr 08/09/17 08/09/17 08/09/17 11:17 16:07 21:29 WBC RBC Hgb Hct MCV MCH MCHC RDW Plt Count MPV Gran % Lymph % (Auto) [place] % (Auto) Eos % (Auto) Baso % (Auto) Gran # Lymph # (Auto) [place] # (Auto) Eos # (Auto) Baso # (Auto) pCO2 pO2 HCO3 ABG pH ABG Total CO2 ABG O2 Saturation ABG O2 Content ABG Base Excess ABG Hemoglobin ABG Carboxyhemoglobin POC ABG HHb (Measured) ABG Methemoglobin ABG O2 Capacity Hgb O2 Saturation FiO2 Sodium Potassium Chloride Carbon Dioxide Anion Gap BUN Creatinine Est GFR ( Amer) Est GFR (Non-Af Amer) POC Glucose (mg/dL) 295 H 271 H 426 H* Random Glucose Calcium Phosphorus Magnesium Total Bilirubin AST ALT Alkaline Phosphatase Total Protein Albumin Globulin Albumin/Globulin Ratio 08/10/17 08/10/17 08/10/17 02:08 05:30 05:30 WBC 8.4 D RBC 4.25 Hgb 11.9 L Hct 39.6 MCV 93.2 MCH 28.0 MCHC 30.1 L RDW 14.4 Plt Count 290 MPV 9.8 Gran % 86.1 H Lymph % (Auto) 9.6 L [place] % (Auto) 4.3 Eos % (Auto) 0.0 L Baso % (Auto) 0.0 Gran # 7.27 H Lymph # (Auto) 0.8 L [place] # (Auto) 0.4 Eos # (Auto) 0.0 Baso # (Auto) 0.00 pCO2 pO2 HCO3 ABG pH ABG Total CO2 ABG O2 Saturation ABG O2 Content ABG Base Excess ABG Hemoglobin ABG Carboxyhemoglobin POC ABG HHb (Measured) ABG Methemoglobin ABG O2 Capacity Hgb O2 Saturation FiO2 Sodium 140 Potassium 4.9 Chloride 92 L Carbon Dioxide 36 H Anion Gap 17 BUN 43 H Creatinine 1.0 Est GFR ( Amer) > 60 Est GFR (Non-Af Amer) 54 POC Glucose (mg/dL) 381 H Random Glucose 406 H* D Calcium 9.2 Phosphorus 4.3 Magnesium 1.6 L Total Bilirubin 0.2 AST 31 ALT 23 Alkaline Phosphatase 82 Total Protein 7.3 Albumin 3.5 Globulin 3.7 Albumin/Globulin Ratio 0.9 L 08/10/17 08/10/17 08/10/17 06:37 08:05 08:10 WBC RBC Hgb Hct MCV MCH MCHC RDW Plt Count MPV Gran % Lymph % (Auto) [place] % (Auto) Eos % (Auto) Baso % (Auto) Gran # Lymph # (Auto) [place] # (Auto) Eos # (Auto) Baso # (Auto) pCO2 90 H* 68 H pO2 114.0 H 50.0 L HCO3 42.3 H* 36.7 H ABG pH 7.28 L 7.34 L ABG Total CO2 45.1 H 38.8 H ABG O2 Saturation 99.2 H 88.6 L ABG O2 Content 14.2 L 12.5 L ABG Base Excess 12.7 H 9.0 H ABG Hemoglobin 10.3 L 10.3 L ABG Carboxyhemoglobin 2.1 H 2.0 H POC ABG HHb (Measured) 0.8 11.1 H ABG Methemoglobin 0.5 0.7 ABG O2 Capacity 14.3 L 14.1 L Hgb O2 Saturation 96.6 86.2 L FiO2 36.0 28.0 Sodium Potassium Chloride Carbon Dioxide Anion Gap BUN Creatinine Est GFR ( Amer) Est GFR (Non-Af Amer) POC Glucose (mg/dL) 366 H Random Glucose Calcium Phosphorus Magnesium Total Bilirubin AST ALT Alkaline Phosphatase Total Protein Albumin Globulin Albumin/Globulin Ratio 08/10/17 12:00 WBC RBC Hgb Hct MCV MCH MCHC RDW Plt Count MPV Gran % Lymph % (Auto) [place] % (Auto) Eos % (Auto) Baso % (Auto) Gran # Lymph # (Auto) [place] # (Auto) Eos # (Auto) Baso # (Auto) pCO2 pO2 HCO3 ABG pH ABG Total CO2 ABG O2 Saturation ABG O2 Content ABG Base Excess ABG Hemoglobin ABG Carboxyhemoglobin POC ABG HHb (Measured) ABG Methemoglobin ABG O2 Capacity Hgb O2 Saturation FiO2 Sodium Potassium Chloride Carbon Dioxide Anion Gap BUN Creatinine Est GFR ( Amer) Est GFR (Non-Af Amer) POC Glucose (mg/dL) 341 H Random Glucose Calcium Phosphorus Magnesium Total Bilirubin AST ALT Alkaline Phosphatase Total Protein Albumin Globulin Albumin/Globulin Ratio Critical Care Progress Note - Nutrition Nutrition: Nutrition Category Date Time Status Heart Healthy Diet [DIET] Diets 08/09/17 Dinner Ordered Attending/Attestation - Attestation I have personally seen and examined this patient.: Yes I have fully participated in the care of the patient.: Yes I have reviewed all pertinent clinical information: Yes Notes (Text): 08/10/17 15:[address] stratton note
--- NOTE | 2017-08-10 11:55 | PN ---
DATE: 08/10/2017 SUBJECTIVE: The patient is 72 years old, seen and examined, much better. Awake, alert, oriented, communicative. Able to have a good conservation. Mild shortness of breath. PHYSICAL EXAMINATION: VITAL SIGNS: She is afebrile, pulse 112, respirations 24, blood pressure 144/66. LUNGS: Bilateral diffusely decreased breath sound expiratory rhonchi. HEART: S1 and S2 audible. Tachycardic. ABDOMEN: Soft. Nontender. No rebound. No guarding. NEUROLOGIC: She is awake and alert, able to communicate. EXTREMITIES: Bilateral leg, +1 edema. LABORATORY EXAM: WBC is 8.4, hemoglobin 11.9, hematocrit 39.6, platelet 290. Chemistry: Sodium 140, potassium 4.9, chloride 92, CO2 of 36, BUN 43, creatinine 1, blood sugar of 366. Blood cultures, urine cultures were negative. ASSESSMENT: 1. Chronic obstructive pulmonary disease exacerbation. 2. Carbon dioxide narcosis. 3. Coronary artery disease, status post angioplasty. 4. Ventral hernia. 5. Insulin-dependent diabetes. PLAN: Currently, the patient is on IV steroid. She is on a nebulizer treatment. We will continue her on diuretic. She is on levofloxacin. We will start her on steady dose of Humalog. Since her lungs are clear, her steroid can be cut down to every 12. Out of bed to chair. We will follow up this patient in the a.m. Ten Sher MD
[2017-08-10] MEDS: Insulin Lispro (humaLOG) MIX 75/25(10 ml) SC SCH (17:33)
[2017-08-10] MEDS: Insulin Detemir 100 units/ml Vial (Levemir) SC SCH (22:02)
[2017-08-10] MEDS: guaiFENesin DM 100 mg-10 mg/5 ml UD PO PRN (22:03)
[2017-08-11] MEDS: Albuterol-Ipratrop 3 mg / 0.5 (3 ml) UD IH SCH ×4 (01:00→21:10)
[2017-08-11] MEDS: Pantoprazole 40 mg EC Tab PO SCH (06:05)
[2017-08-11] MEDS: Budesonide 0.25 mg/2 ml Inhal Susp UD IH SCH ×2 (07:26→21:10)
[2017-08-11 08:13] LABS: ARTERIAL BLOOD GAS HCO3 36.7 mmol/L (21-28); ARTERIAL BLOOD GAS HEMOGLOBIN 9.6 g/dL (11.7-17.4); ARTERIAL BLOOD GAS O2 CAPACITY 13.3 mL/dl (16-24); ARTERIAL BLOOD GAS O2 CONTENT 13.1 ML/dl (15-23); ARTERIAL BLOOD GAS O2 SAT 98.2 % (95-98); ARTERIAL BLOOD GAS PCO2 68 mm/Hg (35-45); ARTERIAL BLOOD GAS PH 7.34 (7.35-7.45); ARTERIAL BLOOD GAS TCO2 38.8 mmol.L (22-28)
[2017-08-11] MEDS: Insulin Reg-MEDIUM-Coverage SC SCH ×4 (08:14→21:53)
[2017-08-11] MEDS: Insulin Lispro (humaLOG) MIX 75/25(10 ml) SC SCH ×2 (08:15→16:45)
--- NOTE | 2017-08-11 08:28 | PN ---
DATE: 08/11/2017 PULMONARY NOTE SUBJECTIVE: The patient appears very comfortable this morning. She is not short of breath at rest. OBJECTIVE: VITAL SIGNS: Temperature is 97.5, pulse 95, respirations 18, blood 110/59. Oxygen saturation on nasal cannula is 99%. HEENT: Normocephalic, atraumatic. No JVD. CARDIOVASCULAR: Systolic ejection murmur at the lower left sternal border. No S3 gallop. LUNGS: Crackles at both bases - chronic. Much less rhonchi. No wheezing this morning. EXTREMITIES: Mild edema. No cyanosis, no clubbing. Calves are nontender to palpation. GASTROINTESTINAL: Abdomen is soft, nontender and nondistended. Bowel sounds are positive. SKIN: No acute rash. NEUROLOGIC: Exam limited at the present time. IMPRESSION: 1. Respiratory failure. 2. Advanced chronic obstructive pulmonary disease. 3. Advanced interstitial lung disease. 4. Advanced coronary artery disease. 5. Diabetes mellitus. PLAN: The patient appears very comfortable this morning. She is not short of breath at rest. She is currently wearing her nasal cannula. I did discuss the case with the night nurse at length. The night nurse stated that the patient had a very good night and did wear her BiPap. On physical exam, her bronchospasm is certainly less. In addition, the alveolar-arterial gradient is also significantly less. Oxygen saturation on nasal cannula is now 99%. I will continue the current nebulizer treatments and intravenous steroids (decreased yesterday) for now. Repeat chest x-ray and arterial blood gas are ordered for the morning. Neither has been done as of yet. I will check them when feasible. The clinical status of the patient is significantly improved, overall. I will discuss the above with the attending physician. Randell Becker MD [facility]
[2017-08-11] MEDS: MethylPREDNISolone 40 mg Vial IVP SCH ×2 (09:41→21:54)
[2017-08-11] MEDS: Metoprolol Succinate 50 mg XL Tab PO SCH (09:42)
[2017-08-11] MEDS: levoFLOXacin 750 MG TAB PO SCH (09:45)
--- NOTE | 2017-08-11 21:54 | PN ---
DATE: 08/11/2017 SUBJECTIVE: Patient is 72 years old seen and examined, lying in the bed, seems to be quite comfortable. No nausea or vomiting. Does get short of breath on walking. PHYSICAL EXAMINATION: VITAL SIGNS: She is afebrile. Pulse 92, respirations 20, blood pressure 128/66. LUNGS: Bilateral fair airflow. No rhonchi or crackles. She has significantly decreased breath sounds . HEART: S1 and S2 audible. ABDOMEN: Soft, nontender. No rebound, no guarding. NEUROLOGIC: She is awake, alert, oriented, communicative. LABORATORY EXAMINATION: Blood sugar is 376. ASSESSMENT AND PLAN: 1. Chronic obstructive pulmonary disease exacerbation. 2. Bronchospasm. 3. Status post CO2 narcosis and metabolic encephalopathy. 4. Non-insulin dependent diabetes. 5. Coronary artery disease. So plan is we will continue the patient on nebulizer treatment. I will increase her insulin from 15 to 20 units before breakfast and dinner. She is currently on Levaquin. We will continue that. She is on Levemir. Patient has no active bronchospasm. I will cut down her steroid since her blood sugar is fluctuating on the high side. Ten Sher MD
[2017-08-11] MEDS: Insulin Detemir 100 units/ml Vial (Levemir) SC SCH (22:04)
[2017-08-12] MEDS: Albuterol-Ipratrop 3 mg / 0.5 (3 ml) UD IH SCH ×4 (03:00→21:30)
[2017-08-12] MEDS: Pantoprazole 40 mg EC Tab PO SCH (05:39)
--- NOTE | 2017-08-12 07:20 | PN ---
DATE: 08/12/2017 SUBJECTIVE: The patient appears very comfortable this morning. She is not short of breath at rest. PHYSICAL EXAMINATION: VITAL SIGNS: Temperature is 98, pulse 85, respirations 19, blood pressure 138/59. Oxygen saturation on nasal cannula is 96%. HEENT: Normocephalic, atraumatic. No JVD. CARDIOVASCULAR: Systolic ejection murmur at the lower left sternal border. No S3 gallop. LUNGS: Crackles at both bases - chronic. Minimal/less rhonchi. No wheezing. EXTREMITIES: Mild edema. No cyanosis, no clubbing. Calves are nontender to palpation. GI: Abdomen is soft, nontender and nondistended. Bowel sounds are positive. SKIN: No acute rash. NEUROLOGIC: Limited at the present time. IMPRESSION: 1. Respiratory failure. 2. Advanced chronic obstructive pulmonary disease. 3. Advanced interstitial lung disease. 4. Advanced coronary artery disease. 5. Diabetes mellitus. PLAN: The patient appears very comfortable this morning. She is not short of breath at rest. She does state to feeling much, much better overall. I did discuss the case with the respiratory therapist. The respiratory therapist stated that the patient had a good night, and did wear the BiPAP. On physical exam, her bronchospasm continues to resolve. In addition, the alveolar-arterial gradient also continues to resolve. I will continue the current nebulizer treatments and low-dose intravenous steroids (decreased again yesterday) for now. The patient also remains on oral antibiotic therapy. There are no temperatures noted. There is no leukocytosis. I did review the arterial blood gas from yesterday. There is near normalization of the pH, with a significant decrease in the pCO2. The alveolar-arterial gradient is also much less. I will continue with the nasal cannula during the day, and BiPAP at night. Clinical status of the patient is significantly improved overall. However, again, her future status/prognosis does remain guarded - as she continues to have advanced lung disease. I will discuss the above with Dr. Sher. Randell Becker MD [facility]
[2017-08-12] MEDS: Budesonide 0.25 mg/2 ml Inhal Susp UD IH SCH ×2 (07:28→21:30)
[2017-08-12] MEDS: Insulin Reg-MEDIUM-Coverage SC SCH ×4 (07:56→22:48)
[2017-08-12] MEDS: Insulin Lispro (humaLOG) MIX 75/25(10 ml) SC SCH ×2 (07:56→16:34)
[2017-08-12] MEDS: MethylPREDNISolone 40 mg Vial IVP SCH ×2 (10:15→23:07)
[2017-08-12] MEDS: Metoprolol Succinate 50 mg XL Tab PO SCH (10:18)
--- NOTE | 2017-08-12 12:00 | RAD ---
HISTORY: follow up Follow-up the COMPARISON: No prior. FINDINGS: LUNGS: The interstitial markings remain increased and coarsened ; rule out sequela of reactive/inflammatory airway disease or viral illness, interstitial infiltrates and/or interstitial edema. Mild bibasilar atelectasis. Questionable small effusions PLEURA: As above. No pneumothorax apparent. CARDIOVASCULAR: Normal. OSSEOUS STRUCTURES: No significant abnormalities. VISUALIZED UPPER ABDOMEN: Normal. OTHER FINDINGS: None. IMPRESSION: The interstitial markings remain increased and coarsened ; rule out sequela of reactive/inflammatory airway disease or viral illness, interstitial infiltrates and/or interstitial edema. Mild bibasilar atelectasis. Questionable small effusions
--- NOTE | 2017-08-12 14:47 | PN ---
DATE: 08/12/2017 SUBJECTIVE: The patient is 72 years old, seen and examined, sitting in chair, seems to be comfortable. No cough, congestion. No shortness of breath. Complained on feeling weak. Blood sugar is running high. Eating and tolerating. Fully awake, alert, oriented, communicative. PHYSICAL EXAMINATION: VITAL SIGNS: The patient is afebrile, pulse 84, respirations 18 blood pressure 134/81. LUNGS: Bilateral good airflow. No rhonchi or crackle. HEART: S1 and S2 audible. ABDOMEN: Soft. Nontender. No rebound. No guarding. NEUROLOGIC: She is awake, alert, oriented, communicative. EXTREMITIES: Bilateral legs, no leg edema. LABORATORY EXAM: Chemistry: Blood sugar is 310. Blood culture and urine cultures are negative. ASSESSMENT: 1. Chronic obstructive pulmonary disease exacerbation. 2. Carbon dioxide narcosis. 3. Coronary artery disease, status post angioplasty. 4. Ventral hernia, not incarcerated. 5. Interstitial lung disease. 6. Bilateral interstitial infiltrates. PLAN: We will continue the patient on current nebulizer treatment. We will monitor blood sugar. Continue diuretic. The patient is on Levaquin and I will increase her 75/25 to 20 units before breakfast and dinner and we will cut down her steroid since her blood sugar is uncontrolled and if her respiratory status remains stable, we will switch it to p.o. and awaiting TCU acceptance and discharge. Ten Sher MD
[2017-08-12] MEDS: guaiFENesin DM 100 mg-10 mg/5 ml UD PO PRN (23:07)
[2017-08-12] MEDS: Insulin Detemir 100 units/ml Vial (Levemir) SC SCH (23:12)
[2017-08-13] MEDS: Albuterol-Ipratrop 3 mg / 0.5 (3 ml) UD IH SCH ×3 (02:50→13:45)
[2017-08-13] MEDS: Pantoprazole 40 mg EC Tab PO SCH (06:17)
[2017-08-13] MEDS ORDERED: Budesonide 0.5 mg/2 ml Inhal Susp UD IH SCH (08:00)
[2017-08-13] MEDS: Insulin Reg-MEDIUM-Coverage SC SCH ×2 (08:07→11:43)
--- NOTE | 2017-08-13 08:09 | PN ---
DATE: 08/13/2017 PULMONARY NOTE SUBJECTIVE: The patient appears very comfortable this morning. She is not short of breath at rest. OBJECTIVE: VITAL SIGNS (last noted in the computer): Temperature is 98, pulse 74, respirations 18, blood pressure 113/64. Oxygen saturation on nasal cannula is 97%. HEENT: Normocephalic, atraumatic. No JVD. CARDIOVASCULAR: Systolic ejection murmur at the lower left sternal border. No S3 gallop. LUNGS: Crackles at both bases - chronic. Minimal/less rhonchi. No wheezing. EXTREMITIES: Mild edema. No cyanosis, no clubbing. Calves are nontender to palpation. GASTROINTESTINAL: Abdomen is soft, nontender and nondistended. Bowel sounds are positive. SKIN: No acute rash. NEUROLOGIC: Exam limited at the present time. PERTINENT LABORATORY DATA: Chest x-ray was repeated yesterday and reviewed. The chest x-ray done yesterday shows no significant change from the previous film. IMPRESSION: 1. Respiratory failure. 2. Advanced chronic obstructive pulmonary disease. 3. Advanced interstitial lung disease. 4. Advanced coronary artery disease. 5. Diabetes mellitus. PLAN The patient appears very comfortable this morning. She is not short of breath at rest. She does state to feeling much better overall. I did discuss the case with the night nurse at length. The night nurse stated that the patient had a very good night. On physical exam, her bronchospasm continues to slowly resolve. In addition, the oxygen saturation on nasal cannula is now 97%. I will continue with the current nebulizer treatments and low-dosage intravenous steroids for now. I did review the chest x-ray as above. The chest x-ray is not significantly changed from the previous film. The patient remains on oral Levaquin. There are no temperatures noted. The leukocytosis has resolved. The clinical status of the patient is significantly improved - compared to the initial presentation. The patient continues to wear her BiPAP at night. Again, in spite of the significant clinical improvement, the patient's future status/prognosis does remain very guarded. All are aware. I will discuss the above with the attending physician. Randell Becker MD [facility] # [id number] [facility]
[2017-08-13] MEDS: Insulin Lispro (humaLOG) MIX 75/25(10 ml) SC SCH (08:24)
[2017-08-13 08:35] VITALS: RESP 18; TEMP 97.5; O2SAT 96
[2017-08-13 10:34] LABS: GRAN # 6.81 (1.4-6.5); GRAN % 75.2 % (50.0-68.0); HEMOGLOBIN 12.5 g/dL (12.0-16.0); LYMPH # 0.9 (1.2-3.4); LYMPH % 10.4 % (22.0-35.0); MEAN CELL VOLUME 92.6 fl (80.0-105.0); MEAN CORPUSCULAR HEMOGLOBIN 28.2 pg (25.0-35.0); MEAN CORPUSCULAR HGB CONC 30.4 g/dl (31.0-37.0); MEAN PLATELET VOLUME 9.7 fl (7.0-11.0); MONO # 1.3 (0.1-0.6); MONO % 14.4 % (1.0-6.0); RBC 4.44 10^6/uL (3.5-6.1); RED CELL DISTRIBUTION WIDTH 14.5 % (11.5-14.5); WHITE BLOOD COUNT 9.1 10^3/ul (4.5-11.0)
[2017-08-13] MEDS: Metoprolol Succinate 50 mg XL Tab PO SCH (10:58)
[2017-08-13] MEDS: MethylPREDNISolone 40 mg Vial IVP SCH (10:58)
[2017-08-13] MEDS: levoFLOXacin 750 MG TAB PO SCH (11:00)
[2017-08-13 11:02] VITALS: BP 122/82; PULSE 78
[2017-08-13 11:22] LABS: ALBUMIN 3.3 g/dL (3.0-4.8)
[2017-08-13] MEDS ORDERED: Sod Polystyrene Sulf 15 gm/60 ml Susp PO ONE (12:23)
--- NOTE | 2017-08-14 16:26 | DS ---
HISTORY OF PRESENT ILLNESS: Patient is 72 years old who was admitted because of altered mental status. She was found to have CO2 more than 100. She was short of breath. She was having slight fever, cough, and congestion before coming to the hospital. According to the family, she was okay the day before this event. So family wanted her to be DNR. So she was placed on BiPAP, multiple nebulizer treatment given, IV steroids are given. Patient started to improve. Following day, she became more awake and alert, and she was communicative. Patient complained of exertional dyspnea and shortness of breath on walking, so being transferred to TCU for rehab. PAST MEDICAL HISTORY: Significant for: 1. COPD. 2. Hypertension. 3. Coronary artery disease, status post angioplasty. 4. Ventral hernia. 5. Insulin-dependent diabetes. ALLERGIES: SHE IS ALLERGIC TO IODINE, FISH, OXAPROZIN, PENICILLIN, ZOLPIDEM. MEDICATIONS: As per MAR. SOCIAL HISTORY: She used to be a heavy smoker, quit smoking 6 to 7 years ago. PHYSICAL EXAMINATION: GENERAL: Today, she is awake, alert, oriented, communicative. VITAL SIGNS: She is afebrile, pulse 81, respirations 18, blood pressure 122/82. LUNGS: Bilateral fair airflow. Diffusely decreased breath sounds. HEART: S1 and S2 audible. ABDOMEN: Soft. Nontender. No rebound. No guarding. NEUROLOGIC: Patient is awake, alert, oriented, and communicative. LABORATORY EXAMINATION: WBC 9.1, hemoglobin 12.5, hematocrit 41.1, platelets of 306. Chemistry: Sodium 136, potassium 5.1, chloride 96, CO2 42. BUN 73, creatinine 1.3. Blood sugar 152. ASSESSMENT: 1. Status post chronic obstructive pulmonary disease exacerbation. 2. Statu post carbon dioxide narcosis. 3. Coronary artery disease 4. Hypertension. 5. Hyperlipidemia. 6. Interstitial lung disease. 7. Pulmonary fibrosis. 8. Ventral hernia, not incarcerated. PLAN: Patient is being transferred to TCU. She will receive her medications. Hold her Lasix for today. We will give her a dose of 15 mg one dose only. We will follow up CBC, CMP in a.m. We will get physical therapy. Encourage ambulation. Ten Sher MD [facility] # [id number]
== END 2017-08-13 13:39 | DRG 190 ==
LOC: ED 06:21 → ERH 09:27 → CCU 10:37 → 2RNO 08-10 11:04 → 5RSO 08-12 20:10
PROVIDERS: ADMIT Internal Medicine; ATTEND Internal Medicine
PROC: 5A09357 Assistance with Respiratory Ventilation, Less than 24 Consecutive Hours, Continuous Positive Airway Pressure (ICD-10-PCS; principal; 2017-08-09)
DX: J44.1 Chronic obstructive pulmonary disease with (acute) exacerbation (principal); J96.22 Acute and chronic respiratory failure with hypercapnia; G93.41 Metabolic encephalopathy; I25.10 Atherosclerotic heart disease of native coronary artery without angina pectoris; E11.9 Type 2 diabetes mellitus without complications; J84.10 Pulmonary fibrosis, unspecified; I10 Essential (primary) hypertension; E78.5 Hyperlipidemia, unspecified; M51.9 Unspecified thoracic, thoracolumbar and lumbosacral intervertebral disc disorder; K43.9 Ventral hernia without obstruction or gangrene; Z66 Do not resuscitate; Z79.82 Long term (current) use of aspirin; Z88.0 Allergy status to penicillin; J98.01 Acute bronchospasm; D72.829 Elevated white blood cell count, unspecified; Z79.4 Long term (current) use of insulin; Z95.5 Presence of coronary angioplasty implant and graft; Z88.8 Allergy status to other drugs, medicaments and biological substances; Z87.891 Personal history of nicotine dependence; Z99.81 Dependence on supplemental oxygen; Z87.11 Personal history of peptic ulcer disease

== ENCOUNTER 2017-08-13 13:39 | Inpatient (IN) | payer OTHER, MEDICAID ==
[2017-08-13] MEDS ORDERED: Albuterol-Ipratrop 3 mg / 0.5 (3 ml) UD IH PRN (14:58)
[2017-08-13 15:37] VITALS: BMI 25.7
[2017-08-13] MEDS: Insulin Lispro (humaLOG) MIX 75/25(10 ml) SC SCH (17:23)
[2017-08-13] MEDS: Insulin Reg-MEDIUM-Coverage SC SCH ×2 (17:24→21:55)
[2017-08-13] MEDS: Budesonide 0.5 mg/2 ml Inhal Susp UD IH SCH (20:05)
[2017-08-13] MEDS: Albuterol-Ipratrop 3 mg / 0.5 (3 ml) UD IH SCH (20:05)
[2017-08-13] MEDS: Insulin Detemir 100 units/ml Vial (Levemir) SC SCH (21:56)
[2017-08-13] MEDS ORDERED: MethylPREDNISolone 40 mg Vial IVP SCH (22:00)
[2017-08-14] MEDS: Albuterol-Ipratrop 3 mg / 0.5 (3 ml) UD IH SCH ×4 (02:30→20:01)
[2017-08-14] MEDS: Pantoprazole 40 mg EC Tab PO SCH (06:19)
[2017-08-14] MEDS: guaiFENesin DM 100 mg-10 mg/5 ml UD PO PRN ×3 (06:19→21:38)
[2017-08-14] MEDS: Insulin Lispro (humaLOG) MIX 75/25(10 ml) SC SCH ×2 (06:43→17:02)
[2017-08-14] MEDS: Insulin Reg-MEDIUM-Coverage SC SCH ×4 (06:44→21:35)
[2017-08-14 06:52] LABS: ALBUMIN 3.1 g/dL (3.0-4.8); ALT/SGPT 27 U/L (7-56); AST/SGOT 29 U/L (14-36); BLOOD UREA NITROGEN 71 mg/dL (7-21); CALCIUM 8.5 mg/dL (8.4-10.5); GFR AFRICAN-AMERICAN > 60; GFR NON-AFRICAN AMERICAN > 60
[2017-08-14] MEDS: Budesonide 0.5 mg/2 ml Inhal Susp UD IH SCH ×2 (07:11→20:10)
[2017-08-14] MEDS: Metoprolol Succinate 50 mg XL Tab PO SCH (08:15)
--- NOTE | 2017-08-14 08:55 | PN ---
DATE: 08/14/2017 PULMONARY NOTE SUBJECTIVE: The patient appears comfortable this morning. She is not short of breath at rest. PHYSICAL EXAMINATION VITAL SIGNS: Temperature is 98.3, pulse is 72, respirations 18, blood pressure 127/69. Oxygen saturation on nasal cannula is 94%. HEENT: Normocephalic, atraumatic. No JVD. CARDIOVASCULAR: Systolic ejection murmur at the lower left sternal border. No S3 gallop. LUNGS: Crackles at both bases - chronic. Minimal/less rhonchi. No wheezing. EXTREMITIES: Mild edema. No cyanosis, no clubbing. Calves are nontender to palpation. GI: Abdomen is soft, nontender and nondistended. Bowel sounds are positive. SKIN: No acute rash. NEUROLOGIC: Limited at the present time. IMPRESSION: 1. Respiratory failure. 2. Advanced chronic obstructive pulmonary disease. 3. Advanced interstitial lung disease. 4. Advanced coronary artery disease. 5. Diabetes mellitus. PLAN: The patient appears comfortable this morning. She is not short of breath at rest. She does state to feeling much, much better overall. I did discuss the case with the night nurse at length. The night nurse stated that the patient had a very good night, and did wear her BiPAP. On physical exam, her bronchospasm continues to slowly resolve. In addition, the alveolar arterial gradient also continues to resolve. I will continue with the current nebulizer treatments and change to oral steroids this morning. The patient remains on oral Levaquin. The clinical status of the patient is significantly improved - compared to her initial presentation. However, again, her future status/prognosis does remain guarded. The patient is now on the Transitional Unit - where she will participate with physical therapy. I will discuss the above with Dr. Sher. Randell Becker MD [facility]
--- NOTE | 2017-08-14 14:19 | HP ---
HISTORY OF PRESENT ILLNESS: The patient is 72-year-old, who was brought by the family because of altered mental status. The patient was minimally responsive. She was made DNR, so she was placed on BiPAP. The patient had CO2 narcosis. Her CO2 was more than 100, so the patient remained on BiPAP. She was given IV steroids and nebulizer treatment. She was admitted in the ICU. Aggressive nebulizer treatment was given. Her ABG was closely monitored. The patient kicked out of narcosis the next day. She was awake, alert, oriented. She remained in ICU another day and transferred to telemetry. Complained of feeling weak, tired. Getting short of breath when walking to transfer to TCU for rehab and close monitoring. PAST MEDICAL HISTORY: The patient has significant past medical history of, 1. Coronary artery disease, status post angioplasty. 2. Terminal COPD. 3. History of ventral hernia, not incarcerated. 4. Insulin-dependent diabetes. 5. Bilateral knee osteoarthritis. 6. Peripheral vascular disease. 7. Gastritis. ALLERGIES: SHE IS ALLERGIC TO FISH, IODINE, OXAPROZIN, PENICILLIN AND ZOLPIDEM. MEDICATIONS: As per MAR. SOCIAL HISTORY: She is . Lives with her . Quit smoking 6 years ago. She was a heavy smoker for more than 45 years. PHYSICAL EXAMINATION: GENERAL: She is awake, alert, oriented, communicative. VITAL SIGNS: She is afebrile, pulse 98, respirations 18, blood pressure 143/61. LUNGS: Bilateral good airflow. No rhonchi or crackle. HEART: S1 and S2 audible. ABDOMEN: Soft. Nontender. No rebound. No guarding. NEUROLOGICAL: The patient is awake, alert, oriented, communicative. LABORATORY EXAM: Sodium 139, potassium 4.9, chloride 88, CO2 of 42, BUN 71, creatinine 0.9, blood sugar of 385. ASSESSMENT: 1. Status post carbon dioxide narcosis. 2. Chronic obstructive pulmonary disease exacerbation. 3. Hypertension. 4. Hyperlipidemia. 5. Insulin-dependent diabetes. PLAN: We will continue the patient on current medication. We will cut down her steroid. She is on 30 mg daily, will be tapered down to 20 and may be maintain . Ten Sher MD [facility] # [id number]
[2017-08-14] MEDS: Insulin Detemir 100 units/ml Vial (Levemir) SC SCH (21:35)
[2017-08-15] MEDS: Albuterol-Ipratrop 3 mg / 0.5 (3 ml) UD IH SCH ×4 (01:16→19:11)
[2017-08-15] MEDS: Insulin Lispro (humaLOG) MIX 75/25(10 ml) SC SCH ×2 (06:40→17:13)
[2017-08-15] MEDS: Pantoprazole 40 mg EC Tab PO SCH (06:41)
[2017-08-15] MEDS: Insulin Reg-MEDIUM-Coverage SC SCH ×4 (06:41→21:37)
[2017-08-15 06:52] LABS: HEMOGLOBIN 12.2 g/dL (12.0-16.0); MEAN CELL VOLUME 94.3 fl (80.0-105.0); MEAN CORPUSCULAR HEMOGLOBIN 27.9 pg (25.0-35.0); MEAN CORPUSCULAR HGB CONC 29.6 g/dl (31.0-37.0); MEAN PLATELET VOLUME 10.1 fl (7.0-11.0); RBC 4.37 10^6/uL (3.5-6.1); RED CELL DISTRIBUTION WIDTH 14.8 % (11.5-14.5)
[2017-08-15] MEDS: Budesonide 0.5 mg/2 ml Inhal Susp UD IH SCH ×2 (07:12→19:12)
[2017-08-15] MEDS: Metoprolol Succinate 50 mg XL Tab PO SCH (08:08)
--- NOTE | 2017-08-15 09:00 | PN ---
DATE: 08/15/2017 PULMONARY NOTE SUBJECTIVE: The patient appears comfortable this morning. She is not short of breath at rest. PHYSICAL EXAMINATION: VITAL SIGNS: Last temperature recorded in the chart is 97.1. Pulse is 70, respirations 18, blood pressure is 146/77. Oxygen saturation on nasal cannula is 100%. HEENT: Normocephalic, atraumatic. No JVD. CARDIOVASCULAR: Systolic ejection murmur at the lower left sternal border. No S3 gallop. LUNGS: Crackles at both bases - chronic. Minimal bilateral rhonchi. No wheezing. EXTREMITIES: Mild edema. No cyanosis. No clubbing. Calves are nontender to palpation. GI: Abdomen is soft, nontender and nondistended. Bowel sounds are positive. SKIN: No acute rash. NEUROLOGIC: Limited at the present time. IMPRESSION: 1. Respiratory failure. 2. Advanced chronic obstructive pulmonary disease. 3. Advanced interstitial lung disease. 4. Advanced coronary artery disease. 5. Diabetes mellitus. PLAN: The patient appears comfortable this morning. She is not short of breath at rest. She does state to feeling much better overall. I did discuss the case with the night nurse at length. The night nurse stated that the patient had a good night, but did not wear her BiPAP consistently. I did discuss this issue with the patient again this morning. On physical exam, her bronchospasm continues to slowly resolve. In addition, the oxygen saturation on nasal cannula is now 100%. I will continue with the current nebulizer treatments and oral steroids (changed yesterday) for now. The patient remains on antibiotic therapy. There are no temperatures noted. The clinical status of the patient is significantly improved - compared to the initial presentation. However, again, her future status/prognosis does remain very guarded. I will discuss the above with the attending physician. Randell Becker MD [facility]
[2017-08-15] MEDS: levoFLOXacin 750 MG TAB PO SCH (10:32)
--- NOTE | 2017-08-15 16:45 | PN ---
DATE: 08/15/2017 SUBJECTIVE: The patient is 72 years old, seen and examined, sitting in chair, seems to be comfortable. No nausea or vomiting. No diarrhea. Eating and tolerating. PHYSICAL EXAMINATION: VITAL SIGNS: She is afebrile, pulse 71, respirations 18, blood pressure 94/49. LUNGS: Bilateral good airflow. No rhonchi or crackle. HEART: S1 and S2 audible. ABDOMEN: Soft. Nontender. No rebound. No guarding. NEUROLOGIC: The patient is awake, alert, oriented, communicative, ambulatory. EXTREMITIES: Bilateral legs, +1 edema. LABORATORY EXAM: WBC is 14, hemoglobin 12, hematocrit 41, platelet 269. Chemistry: Blood sugar is 264. ASSESSMENT: 1. Status post chronic obstructive pulmonary disease exacerbation. 2. History of carbon dioxide narcosis. 3. Hypertension. 4. Coronary artery disease. 5. Ventral hernia. PLAN: We will continue the patient on current medications. Taper down steroid and continue nebulizer treatment. Continue physical therapy. Ten Sher MD
[2017-08-15] MEDS: Insulin Detemir 100 units/ml Vial (Levemir) SC SCH (21:36)
[2017-08-15] MEDS: guaiFENesin DM 100 mg-10 mg/5 ml UD PO PRN (21:51)
[2017-08-16] MEDS: Pantoprazole 40 mg EC Tab PO SCH (05:54)
[2017-08-16] MEDS: Insulin Lispro (humaLOG) MIX 75/25(10 ml) SC SCH ×3 (06:53→17:52)
[2017-08-16] MEDS: Insulin Reg-MEDIUM-Coverage SC SCH ×4 (06:54→21:53)
[2017-08-16] MEDS: Budesonide 0.5 mg/2 ml Inhal Susp UD IH SCH ×2 (07:09→20:56)
[2017-08-16] MEDS: Albuterol-Ipratrop 3 mg / 0.5 (3 ml) UD IH SCH ×3 (07:09→20:56)
--- NOTE | 2017-08-16 07:35 | PN ---
DATE: 08/16/2017 PULMONARY NOTE SUBJECTIVE: The patient appears comfortable this morning. She is not short of breath at rest. OBJECTIVE: VITAL SIGNS: Temperature is 97.8, pulse is 70, respirations 18/20, blood pressure 129/57. Oxygen saturation on nasal cannula is 94%. HEENT: Normocephalic, atraumatic. No JVD. CARDIOVASCULAR: Systolic ejection murmur at the lower left sternal border. No S3 gallop. LUNGS: Crackles at both bases - chronic. Minimal/less rhonchi. A few wheezes are heard this morning. EXTREMITIES: Mild edema. No cyanosis, no clubbing. Calves are nontender to palpation. GASTROINTESTINAL: Abdomen is soft, nontender, nondistended. Bowel sounds are positive. SKIN: No acute rash. NEUROLOGIC: Exam limited at the present time. IMPRESSION: 1. Respiratory failure. 2. Advanced chronic obstructive pulmonary disease. 3. Advanced interstitial lung disease. 4. Advanced coronary artery disease. 5. Diabetes mellitus. PLAN: The patient appears comfortable this morning. She is not short of breath at rest. She does state to feeling much better overall. The patient states that she did wear her BiPAP last night. On physical exam, mild bronchospasm persists. There is some wheezing heard this morning. I will continue with the current nebulizer treatments and current oral steroids for now. The patient remains on oral antibiotic therapy. There are no temperatures noted. The clinical status of the patient is significantly improved - compared to the initial presentation. However, again, her future status/prognosis does remain very guarded. I will discuss the above with the attending physician. Randell Becker MD MTDVinny
[2017-08-16] MEDS: Metoprolol Succinate 50 mg XL Tab PO SCH (07:50)
[2017-08-16] MEDS: guaiFENesin DM 100 mg-10 mg/5 ml UD PO PRN ×3 (10:20→23:10)
[2017-08-16] MEDS ORDERED: Insulin Lispro (humaLOG) MIX 75/25(10 ml) SC SCH (12:09)
[2017-08-16] MEDS: Insulin Detemir 100 units/ml Vial (Levemir) SC SCH (21:50)
[2017-08-17] MEDS: Albuterol-Ipratrop 3 mg / 0.5 (3 ml) UD IH SCH ×4 (02:59→21:48)
[2017-08-17] MEDS: Pantoprazole 40 mg EC Tab PO SCH (05:43)
[2017-08-17] MEDS: Insulin Lispro (humaLOG) MIX 75/25(10 ml) SC SCH ×2 (06:35→17:41)
[2017-08-17] MEDS: Insulin Reg-MEDIUM-Coverage SC SCH ×4 (06:37→21:32)
--- NOTE | 2017-08-17 08:01 | PN ---
DATE: 08/17/2017 PULMONARY NOTE SUBJECTIVE: The patient appears comfortable this morning. She is not short of breath at rest. She is currently on BiPAP. OBJECTIVE: VITAL SIGNS (last noted in the computer): Temperature is 98.2, pulse is 85, respirations 18/20, blood pressure 115/54. Oxygen saturation on nasal cannula is 95%. HEENT: Normocephalic, atraumatic. No JVD. CARDIOVASCULAR: Systolic ejection murmur at the lower left sternal border. No S3 gallop. LUNGS: Crackles at both bases - chronic. Minimal/less rhonchi. No wheezing. EXTREMITIES: Mild edema. No cyanosis, no clubbing. Calves are nontender to palpation. GASTROINTESTINAL: Abdomen is soft, nontender and nondistended. Bowel sounds are positive. SKIN: No acute rash. NEUROLOGIC: Exam limited at the present time. IMPRESSION: 1. Respiratory failure. 2. Advanced chronic obstructive pulmonary disease. 3. Advanced interstitial lung disease. 4. Advanced coronary artery disease. 5. Diabetes mellitus. PLAN: The patient appears comfortable this morning. She is not short of breath at rest. She does state to feeling much better overall. I did discuss the case with the night nurse at length. The night nurse stated that the patient had a good night, and did wear her BiPAP. On physical exam, her bronchospasm is definitely decreased. In addition, the alveolar-arterial gradient is also decreased. I will continue with the current nebulizer treatments and decrease the oral steroids this morning. The patient remains on antibiotic therapy. There are no temperatures noted. The clinical status of the patient is significantly improved - compared to the initial presentation. However, again, her future status/prognosis does remain very guarded - as she does continue to have advanced chronic obstructive pulmonary disease, as well as advanced interstitial lung disease. I will discuss the above with the attending physician. Randell Becker MD MTDVinny
[2017-08-17] MEDS: Budesonide 0.5 mg/2 ml Inhal Susp UD IH SCH ×2 (08:06→21:47)
--- NOTE | 2017-08-17 08:09 | PN ---
DATE: 08/16/2017 SUBJECTIVE: The patient is 72 years old, seen and examined, sitting in a chair, seems to be comfortable, gets shortness of breath on walking. No nausea or vomiting. No diarrhea. Eating and tolerating. Fully awake, alert, oriented. PHYSICAL EXAMINATION: VITAL SIGNS: She is afebrile, pulse 80, respirations 20, blood pressure 133/57. LUNGS: Bilateral good airflow. No rhonchi or crackle. HEART: S1 and S2 audible. ABDOMEN: Soft, nontender. No rebound. No guarding. NEUROLOGICAL: The patient is awake, alert, oriented, communicative. LABORATORY DATA: Blood sugar is 262. ASSESSMENT: 1. Status post chronic obstructive pulmonary disease exacerbation. 2. CO2 narcosis. 3. History of insulin-dependent diabetes. 4. Coronary artery disease, status post angioplasty. 5. Ventral hernia, not incarcerated. PLAN: I will continue the patient on current medication. I will increase her before breakfast and dinner insulin from 20 unit to 25 units. We will monitor the blood sugar. The patient will see physical therapy and discharge plan for a.m. Ten Sher MD
[2017-08-17] MEDS: Metoprolol Succinate 50 mg XL Tab PO SCH (08:45)
[2017-08-17] MEDS: levoFLOXacin 750 MG TAB PO SCH (09:56)
--- NOTE | 2017-08-17 12:56 | PN ---
DATE: 08/17/2017 SUBJECTIVE: The patient is 72 years old, seen and examined, doing physical therapy. No nausea, vomiting. No diarrhea. PHYSICAL EXAMINATION: VITAL SIGNS: She is afebrile, pulse 70, respirations 18, blood pressure 120/57. LUNGS: Bilateral severely decreased breath sound. HEART: S1 and S2 audible. ABDOMEN: Soft. Nontender. No rebound. No guarding. NEUROLOGICAL: She is awake, alert, oriented, communicative. LABORATORY EXAM: Blood sugar is 101. ASSESSMENT: 1. Chronic obstructive pulmonary disease exacerbation. 2. Status post carbon dioxide narcosis. 3. Hypertension. 4. Coronary artery disease. 5. Insulin-dependent diabetes. 6. Deconditioning and difficulty walking. PLAN: Her steroid is being tapered down. We will monitor her blood sugar. She is on currently Levaquin 750 daily. We will continue that. Encourage ambulation. We will follow up the patient in the a.m. Ten Sher MD
[2017-08-17] MEDS: guaiFENesin DM 100 mg-10 mg/5 ml UD PO PRN (18:23)
[2017-08-17] MEDS: Insulin Detemir 100 units/ml Vial (Levemir) SC SCH (21:33)
[2017-08-18] MEDS: Albuterol-Ipratrop 3 mg / 0.5 (3 ml) UD IH SCH ×4 (02:50→19:43)
[2017-08-18] MEDS: Pantoprazole 40 mg EC Tab PO SCH (05:52)
[2017-08-18] MEDS: Budesonide 0.5 mg/2 ml Inhal Susp UD IH SCH (07:24)
[2017-08-18] MEDS: Insulin Lispro (humaLOG) MIX 75/25(10 ml) SC SCH ×2 (07:27→17:17)
[2017-08-18] MEDS: Insulin Reg-MEDIUM-Coverage SC SCH ×4 (07:29→21:13)
[2017-08-18] MEDS: Metoprolol Succinate 50 mg XL Tab PO SCH (08:59)
[2017-08-18] MEDS: guaiFENesin DM 100 mg-10 mg/5 ml UD PO PRN ×2 (09:01→21:08)
--- NOTE | 2017-08-18 12:21 | PN ---
DATE: 08/18/2017 PULMONARY PROGRESS NOTE SUBJECTIVE: The patient is markedly better at this period of time. She is not dyspneic at rest. She is using her nasal cannula. She uses her BiPAP when sleeping. I have gone through the history of this admission with the patient and her son at great lengths. Apparently, the patient had shortness of breath progressive over several days prior to admission. During that period of time, she had progressive lethargy. As in the past, she probably increased her oxygen therapy to a higher level than discussed previously. We have had numerous discussions in the past about oxygen therapy, the dose required and the problem of increased oxygen delivery related to CO2 retention. The patient did arrive in the hospital with a significantly elevated pCO2. There was no wheezing or shortness of breath prior to this. OBJECTIVE: VITAL SIGNS: Stable. She is afebrile. Respiratory rate is 16-18, blood pressure 120/70, O2 sat 95% on nasal cannula. HEENT: Normocephalic, atraumatic. No jugular venous distention. No lymphadenopathy. CARDIOVASCULAR: Regular rhythm. S1, S2 without gallop. LUNGS: Global decrease in breath sounds. Minimal rhonchi appreciated. No wheezing auscultated. ABDOMEN: Soft. Bowel sounds normoactive without mass, guarding, rebound, organomegaly. EXTREMITIES: Reveal no clubbing or cyanosis. There is trace edema. There is no Homans' sign. SKIN: Warm without rash or excoriation. NEUROLOGIC: No focal findings. PSYCHIATRIC: Mental status perfect. CLINICAL DATA: No new testing available at this time. IMPRESSION: 1. Status post respiratory failure. 2. Carbon dioxide retention, likely secondary to increased FIO2 at home. 3. Advanced chronic obstructive pulmonary disease. 4. Interstitial lung disease. 5. Coronary artery desires disease. 6. Congestive heart failure. 7. Diabetes mellitus. PLAN: We will continue bronchodilators, corticosteroids and LAMA as before. I have discussed with the patient and her son the need to not increase her oxygen when she feels necessary. At the first sign of lethargy, she is to come to the emergency room for an arterial blood gas. This will hopefully prevent the development of CO2 retention once again. We have decreased the oxygen therapy to 2.2 L per minute via nasal cannula. A followup blood gas will be done in the morning to make sure that this is appropriate for this patient. Once things are stable, she will be able to be discharged and followed as an outpatient. She does continue to go to pulmonary rehabilitation, at which time she is seen by a physician. This will help prevent further deterioration in the future. Thank you for the opportunity to follow Mandy Miranda. We will follow closely with you. Mk Chamberlain MD
--- NOTE | 2017-08-18 13:12 | PN ---
DATE: 08/18/2017 SUBJECTIVE: The patient is 72 years old, seen and examined, sitting in chair, seems to be comfortable. No nausea, vomiting. No diarrhea. Eating and tolerating. PHYSICAL EXAMINATION: VITAL SIGNS: The patient is afebrile, pulse 78, respirations 20, blood pressure 105/54. LUNGS: Bilateral diffusely decreased breath sounds. HEART: S1 and S2 audible. ABDOMEN: Soft. Nontender. No rebound. No guarding. NEUROLOGICAL: The patient is awake, alert, oriented, communicative. LABORATORY EXAM: Blood sugar is 137. ASSESSMENT AND PLAN: 1. Status post carbon dioxide narcosis. 2. Terminal chronic obstructive pulmonary disease. 3. Hypertension. 4. Coronary artery disease. 5. Insulin-dependent diabetes. PLAN: We will continue the patient on current medication. Her prednisone is being tapered down. Currently, she is on 20 mg daily. Continue on Protonix and we will follow up this patient. Ten Sher MD
[2017-08-18] MEDS: Insulin Detemir 100 units/ml Vial (Levemir) SC SCH (21:12)
[2017-08-19] MEDS: Albuterol-Ipratrop 3 mg / 0.5 (3 ml) UD IH SCH ×5 (01:07→20:09)
[2017-08-19] MEDS: guaiFENesin DM 100 mg-10 mg/5 ml UD PO PRN ×4 (03:45→21:13)
[2017-08-19] MEDS: Pantoprazole 40 mg EC Tab PO SCH (05:19)
[2017-08-19] MEDS: Insulin Reg-MEDIUM-Coverage SC SCH ×4 (06:38→21:54)
[2017-08-19] MEDS: Insulin Lispro (humaLOG) MIX 75/25(10 ml) SC SCH ×2 (06:38→17:46)
[2017-08-19] MEDS: Budesonide 0.5 mg/2 ml Inhal Susp UD IH SCH ×2 (07:21→20:09)
[2017-08-19] MEDS: Metoprolol Succinate 50 mg XL Tab PO SCH (08:01)
[2017-08-19] MEDS: levoFLOXacin 750 MG TAB PO SCH (10:16)
[2017-08-19 13:42] LABS: ARTERIAL BLOOD GAS HEMOGLOBIN 11.4 g/dL (11.7-17.4); ARTERIAL BLOOD GAS O2 CAPACITY 15.7 mL/dl (16-24); ARTERIAL BLOOD GAS O2 CONTENT 13.6 ML/dl (15-23); ARTERIAL BLOOD GAS O2 SAT 86.9 % (95-98); ARTERIAL BLOOD GAS PCO2 68 mm/Hg (35-45); ARTERIAL BLOOD GAS TCO2 44.2 mmol.L (22-28)
[2017-08-19 14:00] LABS: ARTERIAL BLOOD GAS HCO3 42.1 mmol/L (21-28)
[2017-08-19] MEDS: Insulin Detemir 100 units/ml Vial (Levemir) SC SCH (21:53)
[2017-08-20] MEDS: Albuterol-Ipratrop 3 mg / 0.5 (3 ml) UD IH SCH ×4 (01:48→20:20)
[2017-08-20] MEDS: Pantoprazole 40 mg EC Tab PO SCH (05:17)
[2017-08-20] MEDS: guaiFENesin DM 100 mg-10 mg/5 ml UD PO PRN ×2 (05:17→19:34)
[2017-08-20] MEDS: Insulin Reg-MEDIUM-Coverage SC SCH ×4 (06:53→21:48)
[2017-08-20] MEDS: Insulin Lispro (humaLOG) MIX 75/25(10 ml) SC SCH ×2 (06:55→16:58)
[2017-08-20] MEDS: Budesonide 0.5 mg/2 ml Inhal Susp UD IH SCH ×2 (07:25→20:20)
[2017-08-20] MEDS: Metoprolol Succinate 50 mg XL Tab PO SCH (08:00)
--- NOTE | 2017-08-20 08:30 | PN ---
DATE: 08/20/2017 PULMONARY NOTE SUBJECTIVE: The patient appears comfortable this morning. She is not short of breath at rest. OBJECTIVE: VITAL SIGNS (last noted in the computer): Temperature is 98.5, pulse this morning is approximately 88, respiratory rate 18/20, blood pressure 140/60. Oxygen saturation on nasal cannula is 97%. HEENT: Normocephalic, atraumatic. No JVD. CARDIOVASCULAR: Systolic ejection murmur at the lower left sternal border. No S3 gallop. LUNGS: Crackles at both bases - chronic. Very minimal/less rhonchi. No wheezing. EXTREMITIES: Mild edema. No cyanosis, no clubbing. Calves are nontender to palpation. GI: Abdomen is soft, nontender and nondistended. Bowel sounds are positive. SKIN: No acute rash. NEUROLOGIC: Exam limited at the present time. IMPRESSION: 1. Respiratory failure. 2. Advanced chronic obstructive pulmonary disease. 3. Advanced interstitial lung disease. 4. Advanced coronary artery disease. 5. Diabetes mellitus. PLAN: The patient appears comfortable this morning. She is not short of breath at rest. She does state to feeling much better overall. On physical exam, her bronchospasm continues to slowly resolve. In addition, the oxygen saturation on nasal cannula is now 97%. I will continue with the current nebulizer treatments and low-dose oral steroids for now. The patient remains on antibiotic therapy. There are no temperatures noted. Clinical status of the patient is significantly improved - compared to the initial presentation. However, again, her future status/prognosis does remain very guarded - as she does continue to have multiple serious comorbidities. I will discuss the above with the attending physician. Randell Becker MD DIAMANTE
--- NOTE | 2017-08-20 15:55 | PN ---
DATE: 08/20/2017 SUBJECTIVE: The patient is 72 years old, seen and examined, sitting in chair, seems to be comfortable, complained of shortness of breath on minimal exertion. Still has cough and congestion, unable to cough up much, participating in therapy. No nausea or vomiting, no diarrhea, no hemoptysis, no hematemesis. PHYSICAL EXAMINATION VITAL SIGNS: She is afebrile, pulse 88, respirations 20, blood pressure 140/60. LUNGS: Bilateral good air flow. No rhonchi or crackle. HEART: S1 and S2 audible. ABDOMEN: Soft. Nontender. No rebound. No guarding. NEUROLOGIC: The patient is awake, alert, oriented, communicative. LABORATORY DATA: Blood sugar is 167. ASSESSMENT: 1. Chronic obstructive pulmonary disease exacerbation. 2. Status post CO2 narcosis. 3. Sleep apnea. 4. Coronary artery disease status post angioplasty. 5. Insulin-dependent diabetes. 6. Hypertension. 7. Hyperlipidemia. PLAN: We will continue the patient on current medication. Her steroids are tapered down, she is on 20 mg daily. She will be discharged on Sunday. Ten Sher MD
[2017-08-20] MEDS: Insulin Detemir 100 units/ml Vial (Levemir) SC SCH (21:49)
[2017-08-21] MEDS: guaiFENesin DM 100 mg-10 mg/5 ml UD PO PRN ×2 (00:39→06:20)
[2017-08-21] MEDS: Albuterol-Ipratrop 3 mg / 0.5 (3 ml) UD IH SCH ×2 (03:01→07:50)
[2017-08-21] MEDS: Pantoprazole 40 mg EC Tab PO SCH (06:06)
[2017-08-21] MEDS: Insulin Lispro (humaLOG) MIX 75/25(10 ml) SC SCH (06:49)
[2017-08-21] MEDS: Insulin Reg-MEDIUM-Coverage SC SCH ×2 (06:50→11:30)
[2017-08-21] MEDS: Budesonide 0.5 mg/2 ml Inhal Susp UD IH SCH (07:51)
[2017-08-21] MEDS: Metoprolol Succinate 50 mg XL Tab PO SCH (08:30)
--- NOTE | 2017-08-21 08:34 | PN ---
DATE: 08/21/2017 PULMONARY NOTE SUBJECTIVE: The patient appears very comfortable this morning. She is not short of breath at rest. OBJECTIVE: VITAL SIGNS: Last temperature recorded is 98.5, pulse this morning is 88, respiratory rate 18, last blood pressure recorded is 156/75. Oxygen saturation on nasal cannula is 95%. HEENT: Normocephalic, atraumatic. No JVD. CARDIOVASCULAR: Systolic ejection murmur at the lower left sternal border. No S3 gallop. LUNGS: Crackles at both bases - chronic. Very minimal/less rhonchi. No wheezing. EXTREMITIES: Mild edema. No cyanosis, no clubbing. Calves are nontender to palpation. GI: Abdomen is soft, nontender and nondistended. Bowel sounds are positive. SKIN: No acute rash. NEUROLOGIC: Exam limited at the present time. IMPRESSION: 1. Respiratory failure. 2. Advanced chronic obstructive pulmonary disease. 3. Advanced interstitial lung disease. 4. Advanced coronary artery disease. 5. Diabetes mellitus. PLAN: The patient appears very comfortable this morning. She is not short of breath at rest. She does state to feeling much, much better overall. On physical exam, her bronchospasm continues to slowly resolve. In addition, there is no significant alveolar-arterial gradient. I will continue with the current nebulizer treatments and decrease the oral steroids this morning. The patient is now off antibiotic therapy. There are no temperatures noted. The clinical status of the patient is significantly improved - compared to her initial presentation. However, again, unfortunately, her future status/prognosis does remain very guarded - as she continues to have advanced lung disease, as well as advanced heart disease. I will discuss the above with the attending physician. Randell Becker MD DIAMANTE
[2017-08-21 10:14] VITALS: BP 136/63; PULSE 93
[2017-08-21 11:26] VITALS: RESP 18; TEMP 98.2; O2SAT 97
--- NOTE | 2017-08-22 16:36 | DS ---
HISTORY OF PRESENT ILLNESS: The patient is a 72-year-old came to emergency room on 08/09/2017 with altered mental status. She was found to be in CO2 narcosis. Since family made her DNR, she was placed on BiPAP. She was in ICU. Upon admission her CO2 was 115 with pH of 7.12, pulse ox of 105 also patient was given IV steroid, nebulizer treatment with significant improvement. She remain on tapering dose of steroid. Patient does have past medical history significant for hypertension, hyperlipidemia, coronary artery disease, status post multiple angioplasty. Since we need to monitor her blood sugar closely and taper down her steroids, she was admitted in TCU. Her stay was uneventful and started to improve. Still complain of shortness of breath on walking. PHYSICAL EXAMINATION: VITAL SIGNS: She is afebrile, pulse 78, respirations 18, blood pressure 122/82. LUNGS: Bilateral fair airflow, diffusely decreased breath sounds. HEART: S1, S2 audible. ABDOMEN: Soft, nontender. No rebound. No guarding. NEUROLOGIC: Patient is awake, alert, oriented, communicative, ambulatory. LABORATORY DATA: Blood sugar is 187. ASSESSMENT: 1. Status post altered mental status secondary to carbon dioxide narcosis. 2. Hypertension. 3. Hyperlipidemia. 4. Coronary artery disease. 5. Terminal chronic obstructive pulmonary disease. 6. Ventral hernia. PLAN: Patient is being discharged home on tapering dose of steroid. She will continue all her medication including Xanax, Plavix, Pulmicort, atorvastatin, aspirin, allopurinol 300 daily. She is on nebulizer treatment at home. She is on gabapentin 200 three times a day, lisinopril 30 mg daily, isosorbide. She takes insulin according to sliding scale. At home, she is on Lasix and metoprolol. She will follow up with her PMD . Ten Sher MD
== END 2017-08-21 12:36 | disposition home health service (06) | DRG 190 ==
LOC: TRCU 13:39
PROVIDERS: ADMIT Internal Medicine; ATTEND Internal Medicine
PROC: F07Z9FZ Gait Training/Functional Ambulation Treatment using Assistive, Adaptive, Supportive or Protective Equipment (ICD-10-PCS; principal; 2017-08-14)
PROC: F07Z8FZ Transfer Training Treatment using Assistive, Adaptive, Supportive or Protective Equipment (ICD-10-PCS; 2017-08-14)
PROC: 5A09357 Assistance with Respiratory Ventilation, Less than 24 Consecutive Hours, Continuous Positive Airway Pressure (ICD-10-PCS; 2017-08-14)
PROC: F07L6YZ Therapeutic Exercise Treatment of Musculoskeletal System - Lower Back / Lower Extremity using Other Equipment (ICD-10-PCS; 2017-08-15)
PROC: F08Z1FZ Dressing Techniques Treatment using Assistive, Adaptive, Supportive or Protective Equipment (ICD-10-PCS; 2017-08-17)
DX: J44.1 Chronic obstructive pulmonary disease with (acute) exacerbation (principal); J96.90 Respiratory failure, unspecified, unspecified whether with hypoxia or hypercapnia; J84.9 Interstitial pulmonary disease, unspecified; I11.0 Hypertensive heart disease with heart failure; I50.9 Heart failure, unspecified; E78.5 Hyperlipidemia, unspecified; E11.51 Type 2 diabetes mellitus with diabetic peripheral angiopathy without gangrene; I25.10 Atherosclerotic heart disease of native coronary artery without angina pectoris; M17.0 Bilateral primary osteoarthritis of knee; G47.30 Sleep apnea, unspecified; K43.9 Ventral hernia without obstruction or gangrene; K29.70 Gastritis, unspecified, without bleeding; Z66 Do not resuscitate; Z79.4 Long term (current) use of insulin; Z87.891 Personal history of nicotine dependence; Z98.61 Coronary angioplasty status

== ENCOUNTER 2017-09-24 23:59 | Inpatient (IN) | payer MEDICARE, MEDICAID ==
[2017-09-25 00:07] VITALS: BMI 24.5
--- NOTE | 2017-09-25 00:11 | ED PDOC ---
Arrival/HPI - General Time Seen by Provider: 09/25/17 00:09 Historian: Patient, Family - History of Present Illness Narrative History of Present Illness (Text): 09/25/17 00:10 Mandy Miranda is a 72 year old female, whose past medical history includes COPD, pulmonary fibrosis, diabetes, hypertension, CAD with multiple coronary stents, hyponatremia, and peptic ulcer disease, who presents to the Emergency department brought in by EMS for hemoptysis x 3 hours. Patient stated she had similar symptoms in the past, and she was told to come to emergency department if hemoptysis returns. Patient admits using a medical devised which vibrates and helps to loose bronchial mucus x 4 days. She thinks this may had caused hemoptysis. Denies fever, recent travel, sick contact, urinary symptoms, CP, palpitation, dizziness, or abnormal gait. Time/Duration: Other (see hpi) Context: Home Past Medical History - Provider Review Nursing Documentation Reviewed: Yes - Infectious Disease Hx of Infectious Diseases: None - Tetanus Immunization Tetanus Immunization: Unknown - Cardiac Hx Cardiac Disorders: Yes (CAD) Hx Hypertension: Yes - Pulmonary Hx Chronic Obstructive Pulmonary Disease (COPD): Yes - Neurological HX Cerebrovascular Accident: No - HEENT Hx HEENT Disorder: Yes Hx Cataracts: Yes - Renal Hx Renal Failure: Yes - Endocrine/Metabolic Hx Diabetes Mellitus Type 2: Yes - Hematological/Oncological Hx Hepatitis B: Yes - Integumentary Hx Dermatological Disorder: Yes - Musculoskeletal/Rheumatological Hx Falls: No - Gastrointestinal Hx Gastrointestinal Disorders: Yes (VENTRAL HERNIA) - Genitourinary/Gynecological Hx Genitourinary Disorders: No - Psychiatric Hx Psychophysiologic Disorder: Yes Hx Anxiety: Yes Hx Emotional Abuse: No Hx Physical Abuse: No Hx Substance Use: No - Surgical History Hx Coronary Stent: Yes (X9) Hx Hysterectomy: Yes (partial) - Anesthesia Hx Anesthesia Reactions: No Hx Malignant Hyperthermia: No - Suicidal Assessment Feels Threatened In Home Enviroment: No Family/Social History - Physician Review Nursing Documentation Reviewed: Yes Family/Social History: Other (noncontributory) Smoking Status: Former Smoker Hx Alcohol Use: No Hx Substance Use: No Hx Substance Use Treatment: No Allergies/Home Meds Allergies/Adverse Reactions: Allergies FISH Allergy (Severe, Verified 09/25/17 00:07) THROAT SWELLING iodine Allergy (Verified 09/25/17 00:07) RASH oxaprozin [From Daypro] Allergy (Verified 09/25/17 00:07) RASH Penicillins Allergy (Verified 09/25/17 00:07) ANAPHYLAXIS zolpidem [From Ambien] Adverse Reaction (Intermediate, Verified 09/25/17 00:07) FATIGUE Fatigue and hallucinations. Home Medications: Home Meds Medication Instructions Recorded Confirmed Albuterol Sulfate [Ventolin Hfa] 2 puff INH PRN PRN 08/09/17 09/25/17 Furosemide [Lasix] 40 mg PO DAILY 08/09/17 09/25/17 Lisinopril [Zestril] 30 mg PO DAILY 08/09/17 09/25/17 Metoprolol Succinate [Toprol Xl] 50 mg PO DAILY 08/09/17 09/25/17 Tiotropium [place] Inhaler 18 mcg INH DAILY 08/09/17 09/25/17 [Spiriva Inhalation Handihaler Device] Review of Systems - Review of Systems Constitutional: Normal. absent: Fatigue, Weight Change, Fevers, Night Sweats Eyes: Normal ENT: Normal Respiratory: SOB (chronic), Cough, Other ((+) hemoptysis). absent: Wheezing Cardiovascular: Normal. absent: Chest Pain, Palpitations, Edema, Calf Pain Gastrointestinal: Normal. absent: Abdominal Pain, Nausea, Vomiting Genitourinary Female: Normal Musculoskeletal: Normal Skin: Normal Neurological: Normal. absent: Headache, Dizziness, Focal Weakness Endocrine: Normal Hemo/Lymphatic: Normal Psychiatric: Normal Physical Exam Vital Signs Temp Pulse Resp BP Pulse Ox 09/25/17 00:23 12 96 09/25/17 00:15 98.4 F 102 H 24 153/72 H 93 L Temperature: Afebrile Blood Pressure: Normal Pulse: Regular Respiratory Rate: Normal Appearance: Positive for: Well-Appearing, Non-Toxic, Comfortable Pain Distress: None Mental Status: Positive for: Alert and Oriented X 3 - Systems Exam Head: Present: Atraumatic, Normocephalic Pupils: Present: PERRL Extroacular Muscles: Present: EOMI Conjunctiva: Present: Normal Mouth: Present: Moist Mucous Membranes Neck: Present: Normal Range of Motion Respiratory/Chest: Present: Good Air Exchange, Decreased Breath Sounds, Rhonchi. No: Respiratory Distress, Accessory Muscle Use, Wheezes, Rales, Retracting, Tachypneic Cardiovascular: Present: Regular Rate and Rhythm, Normal S1, S2. No: Murmurs Abdomen: No: Tenderness, Distention, Peritoneal Signs, Rebound, Guarding Back: Present: Normal Inspection. No: CVA Tenderness Upper Extremity: Present: Normal Inspection, Normal ROM. No: Cyanosis, Edema Lower Extremity: Present: Normal Inspection, Normal ROM. No: Edema Neurological: Present: GCS=15, CN II-XII Intact, Speech Normal, Motor Func Grossly Intact, Normal Sensory Function, Normal Cerebellar Funct, Gait Normal Skin: Present: Warm, Dry, Normal Color. No: Rashes Psychiatric: Present: Alert, Oriented x 3, Normal Insight, Normal Concentration Medical Decision Making ED Course and Treatment: 09/25/17 01:[address] Sher regarding patient with shortness of breath, hemoptysis. I reviewed labs. pending CT Scan result. She recommended Dr. Rodrigues, therapy teacher, Duoneb q6h, Solumedrol [address] Becker works with Dr. Rodrigues. Re-evaluation Time: 01:57 Reassessment Condition: Re-examined, Improving,but remains with symptoms - Lab Interpretations Lab Results: 09/25/17 00:49 09/25/17 00:49 Lab Results 09/25/17 00:49: Sodium 140, Potassium 4.1, Chloride 92 L, Carbon Dioxide 39 H, Anion Gap 13, BUN 19, Creatinine 1.1, Est GFR ( Amer) 59, Est GFR (Non- Af Amer) 49, Random Glucose 341 H*, Calcium 9.2, Magnesium 1.4 L, Total Bilirubin 0.3, AST 31, ALT 22, Alkaline Phosphatase 61, Lactate Dehydrogenase 436, Total Creatine Kinase 46, Troponin I < 0.01, NT-Pro-B Natriuret Pep 240, Total Protein 7.3, Albumin 3.5, Globulin 3.8, Albumin/Globulin Ratio 0.9 L 09/25/17 00:49: PT 11.5, INR 1.01, APTT 30.4 09/25/17 00:49: WBC 11.6 H, RBC 4.48, Hgb 12.1, Hct 40.0, MCV 89.3 D, MCH 27.0 , MCHC 30.3 L, RDW 15.7 H, Plt Count 329, MPV 9.7, Gran % 63.9, Lymph % (Auto) 21.0 L, Calhoun % (Auto) 10.9 H, Eos % (Auto) 3.5, Baso % (Auto) 0.7, Gran # 7.42 H , Lymph # (Auto) 2.4, Calhoun # (Auto) 1.3 H, Eos # (Auto) 0.4, Baso # (Auto) 0.08 I have reviewed the lab results: Yes - RAD Interpretation Narrative RAD Interpretations (Text): 09/25/17 02:48 CT Chest Without Intravenous Contrast FINDINGS: Lungs: There is emphysema. There is bronchiectasis. There is scattered pulmonary infiltrate suggesting aspiration and pneumonia. More focal consolidation is seen in the right apex. Pleural space: No acute findings. No pneumothorax. No significant effusion. Heart: No acute findings. No cardiomegaly. No significant pericardial effusion. Bones/joints: No acute findings. No acute fracture. No dislocation. Soft tissues: No acute findings. Vasculature: No acute findings. No thoracic aortic aneurysm. Lymph nodes: No acute findings. No enlarged lymph nodes. IMPRESSION: There is emphysema. There is bronchiectasis. There is scattered pulmonary infiltrate suggesting aspiration and pneumonia. More focal consolidation is seen in the right apex. Radiology Orders: 09/25/17 00:22 CHEST W/O CONTRAST [CT] Stat 09/25/17 00:23 CHEST PORTABLE [RAD] Stat - EKG Interpretation EKG Interpretation (Text): 09/25/17 01:49 EKG: Ordered, reviewed, and independently interpreted the EKG. Rate : 94 BPM Rhythm : NSR Interpretation : Occasional PVCs. No ST-segment changes. Interpreted by ED Physician: Yes Type: 12 lead EKG - Medication Orders Current Medication Orders: Albuterol/Ipratropium (Duoneb 3 Mg/0.5 Mg (3 Ml) Ud) 3 ml IH Q2H PRN PRN Reason: Shortness of Breath Albuterol/Ipratropium (Duoneb 3 Mg/0.5 Mg (3 Ml) Ud) 3 ml IH [id number] [facility] Last Admin: 09/26/17 13:16 Dose: 3 ml Allopurinol (Zyloprim) 300 mg PO DAILY [facility] Last Admin: 09/26/17 09:54 Dose: 300 mg Alprazolam (Xanax) 0.25 mg PO TID PRN; Protocol PRN Reason: Anxiety Stop: 10/02/17 10:17 Last Admin: 09/25/17 13:15 Dose: 0.25 mg Behavioural Document 09/25/17 13:15 (Rec: 09/25/17 13:15 [id number] Maintenance Maintenance Dose Yes Nonmedicinal Nonmedicinal Interventions Redirect Therapeutic Communication Activity Give food/fluids See nurse's notes Behavior Behavior for Medication: Anxiety Re-Assess: Reassess Psych Meds Document 09/25/17 14:15 SG (Rec: 09/25/17 16:59 SG [id number]) Reassess Psych Med Effective Aspirin (Ecotrin) 81 mg PO DAILY [facility] Last Admin: 09/26/17 09:54 Dose: 81 mg Atorvastatin Calcium (Lipitor) 20 mg PO DAILY [facility] Last Admin: 09/25/17 13:05 Dose: 20 mg Budesonide (Pulmicort Respules) 0.5 mg IH [id number] [facility] Last Admin: 09/26/17 07:44 Dose: 0.5 mg Clopidogrel Bisulfate (Plavix) 75 mg PO DAILY [facility] Last Admin: 09/26/17 09:54 Dose: 75 mg Doxycycline Hyclate (Doryx) 100 mg PO Q12 BRIANNA PRN Reason: Protocol Stop: 10/04/17 13:45 Last Admin: 09/26/17 09:56 Dose: 100 mg Furosemide (Lasix) 40 mg PO DAILY [facility] Last Admin: 09/26/17 09:56 Dose: 40 mg MAR Blood Pressure Document 09/26/17 09:56 [facility] (Rec: 09/26/17 09:56 [id number] Blood Pressure Blood Pressure (100/60-150/90) 101/59 Gabapentin (Neurontin) 200 mg PO TID [facility] PRN Reason: Protocol Last Admin: 09/26/17 09:54 Dose: 200 mg Behavioural Document 09/26/17 09:54 [facility] (Rec: 09/26/17 09:55 [facility] [id number]) Maintenance Maintenance Dose Yes Nonmedicinal Nonmedicinal Interventions Redirect Guaifenesin/Dextromethorphan (Robitussin Dm) 5 ml PO Q4H PRN PRN Reason: Cough Last Admin: 09/25/17 22:44 Dose: 5 ml Meropenem (Merrem Iv 1 Gm Premix) 50 mls @ 100 mls/hr IVPB Q12 [facility] PRN Reason: Protocol Last Admin: 09/26/17 09:57 Dose: 100 mls/hr eMAR Start Stop Document 09/26/17 09:57 [facility] (Rec: 09/26/17 09:57 [id number][facility] Intravenous Solution Start Date 09/26/17 Start Time 09:57 End Date 09/26/17 End time 10:25 Total Infusion Time 28 Insulin Detemir (Levemir) 25 unit SC [facility] Last Admin: 09/25/17 22:17 Dose: 25 units MAR Blood Glucose Document 09/25/17 22:17 [facility] (Rec: 09/25/17 22:17 [place] [id number]) Blood Glucose Finger Stick Blood Glucose (70-120) 359 Subcutaneous Administrations Document 09/25/17 22:17 [facility] (Rec: 09/25/17 22:17 [id number]) Charges for Administration # of Subcutaneous Administrations 1 Insulin Human Lispro (Humalog High) 0 units SC ACHS [facility] PRN Reason: Protocol Last Admin: 09/26/17 08:44 Dose: 2 units MAR Blood Glucose Document 09/26/17 08:44 [facility] (Rec: 09/26/17 08:[address] [id number]) Blood Glucose Finger Stick Blood Glucose (70-120) 185 Subcutaneous Administrations Document 09/26/17 08:44 [facility] (Rec: 09/26/17 08:[address] [id number]) Charges for Administration # of Subcutaneous Administrations 1 Insulin Lispro Protam/Lispro Human (Humalog Mix 75/25) 20 units SC ACBD [facility] Last Admin: 09/26/17 08:45 Dose: 20 unit MAR Blood Glucose Document 09/26/17 08:45 [facility] (Rec: 09/26/17 08:[address] [id number]) Blood Glucose Finger Stick Blood Glucose (70-120) 185 Subcutaneous Administrations Document 09/26/17 08:45 [facility] (Rec: 09/26/17 08:[address] [id number]) Injection Site MAR Injection Site Right Arm Charges for Administration # of Subcutaneous Administrations 1 Isosorbide Mononitrate (Imdur) 60 mg PO DAILY [facility] Last Admin: 09/26/17 09:54 Dose: 60 mg Lisinopril (Zestril) 30 mg PO DAILY [facility] Last Admin: 09/26/17 09:55 Dose: 30 mg MAR Pulse and Blood Pressure Document 09/26/17 09:55 [facility] (Rec: 09/26/17 09:56 [facility] [id number]) Pulse Pulse Rate (60-90) 88 Blood Pressure Blood Pressure (100/60-150/90) 101/59 Magnesium Oxide (Mag-Ox) 400 mg PO DAILY [facility] Last Admin: 09/26/17 09:54 Dose: 400 mg Metoprolol Succinate (Toprol Xl) 50 mg PO DAILY [facility] Last Admin: 09/26/17 09:55 Dose: 50 mg MAR Pulse and Blood Pressure Document 09/26/17 09:55 [facility] (Rec: 09/26/17 09:55 [facility] [id number]) Pulse Pulse Rate (60-90) 88 Blood Pressure Blood Pressure (100/60-150/90) 101/59 Pantoprazole Sodium (Protonix Ec Tab) 40 mg PO 0600 [facility] Last Admin: 09/26/17 06:10 Dose: 40 mg Prednisone (Prednisone Tab) 20 mg PO BID [facility] Ropinirole HCl (Requip) 3 mg PO HS [facility] Last Admin: 09/25/17 22:20 Dose: 3 mg Discontinued Medications Albuterol/Ipratropium (Duoneb 3 Mg/0.5 Mg (3 Ml) Ud) 3 ml IH Q6H [facility] Stop: 09/25/17 12:00 Last Admin: 09/25/17 02:15 Dose: 3 ml Sodium Chloride (Sodium Chloride 0.9%) 500 mls @ 999 mls/hr IV .Q31M STA Stop: 09/25/17 02:30 Last Admin: 09/25/17 02:12 Dose: 999 mls/hr eMAR Start Stop Document 09/25/17 02:12 [facility] (Rec: 09/25/17 02:13 [id number]) Intravenous Solution Start Date 09/25/17 Start Time 02:12 End Date 09/25/17 End time 02:42 Total Infusion Time 30 Insulin Human Regular (Humulin R) 6 units IV STAT STA Stop: 09/25/17 02:02 Last Admin: 09/25/17 02:11 Dose: 6 units eMAR Start Stop Document 09/25/17 02:11 [facility] (Rec: 09/25/17 02:12 [id number] Intravenous Solution Start Date 09/25/17 Start Time 02:12 MAR Blood Glucose Document 09/25/17 02:11 [facility] (Rec: 09/25/17 02:12 [id number][facility] Blood Glucose Finger Stick Blood Glucose (70-120) 341 Levofloxacin/Dextrose (Levaquin 750mg) 750 mg IVPB STAT STA PRN Reason: Protocol Stop: 09/25/17 01:53 Last Admin: 09/25/17 02:14 Dose: 750 mg eMAR Start Stop Document 09/25/17 02:14 [facility] (Rec: 09/25/17 02:14 [facility] [place] [id number]) Intravenous Solution Start Date 09/25/17 Start Time 02:14 End Date 09/25/17 End time 03:44 Total Infusion Time 90 Methylprednisolone (Solu-Medrol) 40 mg IVP Q8H BRIANNA Stop: 09/25/17 12:00 Last Admin: 09/25/17 10:04 Dose: 40 mg IVP Administration Document 09/25/17 10:04 SG (Rec: 09/25/17 10:04 SG [id number]) Charges for Administration # of IVP Administrations 1 Methylprednisolone (Solu-Medrol) 30 mg IVP Q12 [facility] Last Admin: 09/26/17 10:15 Dose: 30 mg IVP Administration Document 09/26/17 10:15 SG (Rec: 09/26/17 10:15 SG [id number]) Charges for Administration # of IVP Administrations 1 Disposition/Present on Arrival - Present on Arrival Any Indicators Present on Arrival: No History of DVT/PE: No History of Uncontrolled Diabetes: No Urinary Catheter: No History Surgical Site Infection Followin - Disposition Have Diagnosis and Disposition been Completed?: Yes Diagnosis: Hemoptysis, COPD exacerbation Disposition: HOSPITALIZED Disposition Time: 02:00 Patient Plan: Admission Patient Problems: Current Active Problems Problem Status Onset COPD exacerbation Acute Hemoptysis Acute Condition: STABLE
[2017-09-25 01:07] LABS: BASO # 0.08 K/mm3 (0.0-2.0); BASO % 0.7 % (0.0-3.0); EOS # 0.4 (0.0-0.7); EOS % 3.5 % (1.5-5.0); GRAN # 7.42 (1.4-6.5); GRAN % 63.9 % (50.0-68.0); HEMOGLOBIN 12.1 g/dL (12.0-16.0); LYMPH # 2.4 (1.2-3.4); MEAN CORPUSCULAR HGB CONC 30.3 g/dl (31.0-37.0); MEAN PLATELET VOLUME 9.7 fl (7.0-11.0); MONO # 1.3 (0.1-0.6); MONO % 10.9 % (1.0-6.0); RBC 4.48 10^6/uL (3.5-6.1); RED CELL DISTRIBUTION WIDTH 15.7 % (11.5-14.5); WHITE BLOOD COUNT 11.6 10^3/ul (4.5-11.0)
[2017-09-25 01:08] LABS: MEAN CELL VOLUME 89.3 fl (80.0-105.0)
[2017-09-25 01:14] LABS: INR 1.01 (0.93-1.08); PARTIAL THROMBOPLASTIN TIME 30.4 Seconds (25.1-36.5); PROTHROMBIN TIME 11.5 SECONDS (9.4-12.5)
[2017-09-25 01:31] LABS: B-TYPE NATRIURETIC PEPTIDE 240 pg/mL (0-450); TROPONIN I < 0.01 ng/mL
[2017-09-25 01:37] LABS: ALB/GLOB RATIO 0.9 (1.1-1.8); ALBUMIN 3.5 g/dL (3.0-4.8); ALT/SGPT 22 U/L (7-56); AST/SGOT 31 U/L (14-36); BLOOD UREA NITROGEN 19 mg/dL (7-21); CALCIUM 9.2 mg/dL (8.4-10.5); GFR AFRICAN-AMERICAN 59; GFR NON-AFRICAN AMERICAN 49
[2017-09-25] MEDS ORDERED: Albuterol-Ipratrop 3 mg / 0.5 (3 ml) UD IH SCH (01:45)
[2017-09-25] MEDS ORDERED: levoFLOXacin 750 mg in D5W 150 ML BAG IVPB STA (01:52)
[2017-09-25] MEDS ORDERED: Sodium Chloride 0.9% 500 ML IV STA (02:00)
[2017-09-25] MEDS ORDERED: Insulin Regular 1 UNITS/0.01 ML ML IV STA (02:01)
[2017-09-25] MEDS ORDERED: Insulin Regular 1 UNITS/0.01 ML ML ONE (02:09)
[2017-09-25] MEDS: MethylPREDNISolone 40 mg Vial IVP SCH ×2 (02:15→10:04)
[2017-09-25 02:59] LABS: URINE BILIRUBIN NEGATIVE (NEGATIVE); URINE BLOOD TRACE-INTACT (NEGATIVE); URINE GLUCOSE (UA) >=1000 mg/dL (NEGATIVE); URINE LEUKOCYTE ESTERASE NEGATIVE Leu/uL (NEGATIVE); URINE PROTEIN 100 mg/dL (<30 mg/dL); URINE UROBILINOGEN 0.2 E.U./dL (<1 E.U./dL)
[2017-09-25 03:02] LABS: URINE APPEARANCE CLEAR (CLEAR); URINE COLOR LIGHT YELLOW (YELLOW)
[2017-09-25 03:31] LABS: URINE EPITHELIAL CELLS 0 - 2 /hpf (0-5); URINE WBC 0 - 2 /hpf (0-6)
[2017-09-25 04:33] LABS: ARTERIAL BLOOD GAS HCO3 36.6 mmol/L (21-28); ARTERIAL BLOOD GAS O2 SAT 96.6 % (95-98); ARTERIAL BLOOD GAS PH 7.32 (7.35-7.45); ARTERIAL BLOOD GAS TCO2 38.8 mmol.L (22-28)
[2017-09-25 04:43] LABS: ARTERIAL BLOOD GAS PCO2 71 mm/Hg (35-45)
[2017-09-25] MEDS: Albuterol-Ipratrop 3 mg / 0.5 (3 ml) UD IH SCH ×3 (07:52→21:00)
[2017-09-25] MEDS: Budesonide 0.5 mg/2 ml Inhal Susp UD IH SCH ×2 (07:52→21:00)
--- NOTE | 2017-09-25 08:58 | RAD ---
HISTORY: hemoptysis COMPARISON: CT chest from 09/25/2017 and plain radiographs from 08/12/2017 FINDINGS: LUNGS: The lungs are hyperinflated and there is peribronchial thickening with chronic changes in both lungs. There is severe bronchial thickening and nodular opacities in the right lower lobe. Probable There is airspace disease in the right upper and lower lobes. PLEURA: No significant pleural effusion identified, no pneumothorax apparent. CARDIOVASCULAR: Normal. OSSEOUS STRUCTURES: No significant abnormalities. VISUALIZED UPPER ABDOMEN: Normal. OTHER FINDINGS: None. IMPRESSION: Airspace disease in the right upper lobe which may represent pneumonia or atelectasis. COPD with presumable infectious bronchiolitis in the right lower lobe.
--- NOTE | 2017-09-25 09:42 | CT ---
PROCEDURE: CT Chest without contrast HISTORY: hemoptysis COMPARISON: 07/03/2016. TECHNIQUE: Contiguous axial images were obtained through the chest without intravenous contrast enhancement. Sagittal and coronal reconstructions were performed. Radiation dose (DLP): mGy-cm. This CT exam was performed using one or more of the following dose reduction techniques: Automated exposure control, adjustment of the mA and/or kV according to patient size, and/or use of iterative reconstruction technique. FINDINGS: LUNGS: Emphysema and extensive bronchiectasis with bilateral pulmonary nodules and nodules with increased focal consolidation in the right apical segment. MEDIASTINUM: Unremarkable thoracic aorta. No aneurysm. Normal sized heart. Main pulmonary artery unremarkable. No vascular congestion. Worsening of mediastinal lymphadenopathy, possibly reactive. PLEURA: No pleural fluid. No pneumothorax. BONES: No fracture. No destructive lesion. UPPER ABDOMEN: Grossly unremarkable. OTHER FINDINGS: None. IMPRESSION: Emphysema and extensive bronchiectasis with pulmonary nodules with increased focal consolidation in the right apical segment. Short-term interval follow-up is recommended for assessment of this consolidation is mass is not excluded. Worsening mediastinal a a lymphadenopathy, possibly reactive.
--- NOTE | 2017-09-25 10:03 | CON ---
DATE: 09/25/2017 PULMONARY CONSULTATION DICTATION REASON FOR CONSULTATION: Chronic obstructive pulmonary disease. REFERRING PHYSICIAN: Dr. Sher. I did discuss the case with the night nurse at length. I have also reviewed the chart at length, and discussed the case with the patient at length. The patient is a chronically ill 72-year-old female, with past medical history significant for advanced chronic obstructive pulmonary disease, on home oxygen, advanced interstitial lung disease/pulmonary fibrosis, extensive coronary artery disease, status post multiple cardiac stents, diabetes mellitus, hypertension, who presents to [facility] with a 2-day history of worsening shortness of breath at rest, dyspnea on exertion, cough, and sputum production. The patient also states to a small amount of blood in her sputum. There is no history of chest pain. There is no history of chest discomfort - made worse with deep respirations. There is no history of temperatures, chills or infectious exposure. There is no history of night sweats, weight loss or appetite change prior to the above events. No history of leg or calf pains. No history of syncope or diaphoresis. No history of recent travel or trauma. REVIEW OF SYSTEMS: No history of nausea, vomiting or diarrhea. No acute urinary symptoms. No new neurologic or musculoskeletal complaints. Rest of the review of systems negative. ALLERGIES: TO IODINE, DAYPRO, PENICILLIN, ZOLPIDEM. SOCIAL HISTORY: Positive for extensive tobacco usage. No alcohol. FAMILY HISTORY: No inheritable diseases. HOME MEDICATIONS: Include Robitussin, Spiriva, Protonix, Toprol, Zestril, Imdur, Levemir, Neurontin, Lasix, Plavix, Pulmicort, Lipitor, Zyloprim, DuoNebs, Xanax. PHYSICAL EXAMINATION: GENERAL: The patient is not short of breath at rest this morning. She is not using accessory muscles for breathing. VITAL SIGNS: Temperature is 98.3, pulse on the monitor is 101, respiratory rate 18/20, blood pressure 148/72. Oxygen saturation on nasal cannula is 93-96%. HEENT: Normocephalic, atraumatic. No JVD. CARDIOVASCULAR: Systolic ejection murmur at the lower left sternal border. No S3 gallop. LUNGS: Crackles at both bases - chronic. Mild rhonchi and wheezing are appreciated bilaterally. EXTREMITIES: Mild edema. No cyanosis, no clubbing. Calves are nontender to palpation. GASTROINTESTINAL: Abdomen is soft, nontender and nondistended. Bowel sounds are positive. SKIN: No acute rash. NEUROLOGIC: Exam limited at the present time. PERTINENT LABORATORY DATA: CAT scan of the chest was done and reviewed. There is significant emphysema and bronchiectasis noted. There is also evidence of extensive pulmonary fibrosis/interstitial lung disease. There is a focal consolidation - with air bronchograms - noted at the right apex. This consolidation was not seen on the CAT scan of 07/03/2016. Arterial blood gas was done on nasal cannula. Results are: pH 7.32, pCO2 of 71, pO2 of 81. CBC: White count 11.6K, hemoglobin 12.1, hematocrit 40, platelets of 329,000. IMPRESSION: 1. Right upper lobe pneumonia. 2. Acute bronchitis. 3. Advanced chronic obstructive pulmonary disease. 4. Advanced interstitial lung disease. 5. Extensive coronary artery disease. 6. [id number] respiratory failure. PLAN: Again, I did discuss the case with the night nurse at length. I have also reviewed the chart at length, and discussed the case with the patient at length. The patient presents to [facility] with a 2-day history of worsening pulmonary symptoms. As above, the patient also noticed a small amount of blood in her sputum. The nurse also confirms a small amount of blood in the patient's sputum. There are no other pulmonary symptoms offered/reported. I did review the CAT scan of the chest. I have also compared the most recent CAT scan--to the CAT SCAN done on 07/03/2016. There is extensive chronic lung disease noted on both CAT scans. However, the most current CAT scan shows a right upper lobe consolidation - with air bronchograms - consistent with pneumonia. Dr. Ely (Infectious Disease) has been called on the case for antibiotic usage. On physical exam, the patient is in [id number] bronchospasm. I will continue with the moderate dose intravenous steroids and DuoNebs. I will also add inhaled Pulmicort this morning. I have also reviewed the arterial blood gas. Acute on chronic respiratory failure is noted. The patient is currently saturating at 93-96% on 2 liters nasal cannula this morning. The patient does feel better, and is clinically improved this morning. Additional pulmonary intervention will be based on the clinical status of the patient. I will discuss the above with Dr. Sher. Thank you very much for this pulmonary consultation. Randell Becker MD DIAMANTE
[2017-09-25] MEDS: Magnesium Oxide 400 mg Tab UD PO SCH (10:04)
[2017-09-25] MEDS ORDERED: Insulin Reg-LOW-Coverage SC SCH (11:30)
[2017-09-25] MEDS: Insulin Lispro (HUMAlog) HIGH Coverage SC SCH ×3 (13:15→22:16)
[2017-09-25] MEDS: Metoprolol Succinate 50 mg XL Tab PO SCH (13:15)
[2017-09-25] MEDS: Meropenem IV 1 gm in NS 50 ML IVPB SCH ×2 (17:01→22:18)
[2017-09-25] MEDS: Insulin Lispro (humaLOG) MIX 75/25(10 ml) SC SCH (18:01)
--- NOTE | 2017-09-25 19:00 | HP ---
HISTORY OF PRESENT ILLNESS: The patient is 72 years old, known to me from multiple previous admissions, who came to emergency room because of increasing shortness of breath, scanty cough, and palpitation. The patient stated that shortness of breath started to get worse last 2 to 3 days, although she was in shortness of breath at baseline on minimal exertion, but got worse in last two days, so she came to emergency room because she was unable to catch her breath. She has been having cough with copious mucus production. She had blood-tinged phlegm. Denies any chest pain. Did not have fever or chills. No nausea or vomiting without diarrhea. No history of weight loss. PAST MEDICAL HISTORY: Significant for; 1. Coronary artery disease, status post angioplasty. 2. Advanced COPD, on home oxygen. 3. History of restless leg syndrome. 4. Hyperlipidemia. 5. Insulin-dependent diabetes. 6. Chronic back pain. ALLERGIES: SHE IS ALLERGIC TO FISH, IODINE, OXAPROZIN, PENICILLIN, AND ZOLPIDEM. MEDICATIONS AT HOME: 1. She is on nebulizer treatment. 2. She takes aspirin 81 daily. 3. She is on insulin that she takes before each meal. 4. Isosorbide 60 mg daily. 5. Lasix 40 mg daily. 6. Levemir 25 daily. 7. Lipitor 20 mg daily. 8. Magnesium oxide. 9. Neurontin 200 three times a day. 10. Plavix 75 daily. 11. Protonix 40 mg daily. 12. Pulmicort. 13. Requip 3 mg at bedtime. 14. Metoprolol 50 mg daily. 15. Xanax as needed. 16. Allopurinol 300 daily. SOCIAL HISTORY: She is . Lives with her . She used to be a heavy smoker, quit a few years ago. Does not drink. PHYSICAL EXAMINATION: GENERAL: She has mild shortness of breath, lying in bed. VITAL SIGNS: She is afebrile, pulse 106, respirations 24, and blood pressure 148/72. LUNGS: Bilateral expiratory rhonchi. Diffusely decreased breath sound. HEART: S1 and S2 audible. ABDOMEN: Soft and nontender. No rebound. No guarding. NEUROLOGIC: She is awake, alert, and oriented. Able to communicate. EXTREMITIES: Bilateral legs, no edema. LABORATORY EXAM: WBC is 11.6, hemoglobin 12, hematocrit 40, and platelets of 329. PT 11.5, INR 1.01. Chemistry: Sodium 140, potassium 4.1, chloride 92, CO2 of 39. BUN 19, creatinine 1.1. Blood sugar of 341. Magnesium 1.4. LFTs are within normal limits. Urinalysis shows trace blood. ASSESSMENT: 1. Chronic obstructive pulmonary disease exacerbation. 2. Bronchospasm. 3. Asthmatic bronchitis. 4. Palpitation. 5. Coronary artery disease. 6. Insulin-dependent diabetes. 7. Hypertension. 8. Hyperlipidemia. PLAN: We will start her on nebulizer treatment. We will start her on IV steroid. Monitor her blood sugar. Pulmonary consult by Dr. Becker has been requested. We will follow up the patient in the a.m. and out of bed to chair. We will reevaluate the patient in the a.m. Ten Sher MD
[2017-09-25] MEDS: Insulin Detemir 100 units/ml Vial (Levemir) SC SCH (22:17)
[2017-09-25] MEDS: guaiFENesin DM 100 mg-10 mg/5 ml UD PO PRN (22:44)
--- NOTE | 2017-09-25 22:57 | CARD ---
APPROVED REPORT EKG Measurement Heart [id number] <Conclusion> Sinus rhythm with occasional premature ventricular complexes Anteroseptal infarct, age undetermined Abnormal ECG
--- NOTE | 2017-09-26 00:16 | CON ---
DATE: 09/25/2017 LOCATION: Patient is seen earlier today in 265, bed 2. CHIEF COMPLAINT: Shortness of breath and cough times several days' duration. HISTORY OF PRESENT ILLNESS: This is a 72-year-old female with end-stage advanced chronic obstructive lung disease, interstitial lung disease, pulmonary fibrosis, chronic respiratory failure, on home O2 therapy, diabetes, hypertension, coronary artery disease, cardiac stents in the past who was admitted through the emergency room. States that she has been having cough and includes blood in it with hemoptysis and blood tinged. She denies any fevers, any chills. REVIEW OF SYSTEMS: A 12-point review of systems is performed. There has been no abdominal pain, diarrhea, or constipation or bright red blood per rectum. No melena. No dysuria or frequency. No headaches or blurred vision. PAST MEDICAL HISTORY: Significant for advanced chronic obstructive lung disease, interstitial lung disease, pulmonary fibrosis, chronic respiratory failure on home O2 therapy, coronary artery disease, diabetes, and hypertension. PAST SURGICAL HISTORY: Significant for cardiac catheterization with stent placement. ALLERGIES: PATIENT IS ALLERGIC TO PENICILLIN AND DAYPRO. MEDICATIONS: Her medications at home include the patient to be on inhaler, metoprolol, isosorbide, insulin, gabapentin, Lasix, Plavix, Lipitor, Ecotrin, and Xanax. PHYSICAL EXAMINATION: GENERAL: She is in bed, answering questions appropriately. She appears to be weak. She is short of breath. VITAL SIGNS: Temperature of 99, heart rate of 113, respiratory rate of 20, it was as high as 24 and blood pressure is 180/90. HEENT: Unremarkable. NECK: Supple. LUNGS: Have decreased breath sounds. HEART: Normal S1, S2. ABDOMEN: Soft, nontender. No organomegaly. No rebound or guarding. No masses. LABORATORY DATA: Laboratory examination reveals the patient to have a white count of 11,600, hemoglobin of 12, platelets of 329. Coagulation is noted, INR of 1. Blood gases are noted with pCO2 of 71, pO2 of 81, and bicarb 36. Chloride is 106. Chemistries reveal a creatinine of 1.1 and glucose of 341. Urinalysis is noted, unremarkable. Microbiology is pending. The patient had a CAT scan of the chest which showed extensive emphysema, bronchiectasis, pulmonary nodules, and focal consolidation. Emergency room chart is reviewed. Dr. Randell Becker's consultation is appreciated. Chest x-ray is noted and the patient had a recent hospitalization. ASSESSMENT AND PLAN: This is a 72-year-old female with advanced chronic obstructive lung disease, interstitial lung disease, pulmonary fibrosis, chronic respiratory failure on home O2 therapy, coronary artery disease, diabetes mellitus, hypertension and recent hospitalization, admitted with low-grade fevers, cough, hemoptysis, tachycardia, dyspnea and hypoxia with O2 saturation of 93% and positive infiltrate on the chest x-ray. 1. Severe sepsis secondary to apical healthcare-associated pneumonia in a patient with right apical consolidation. Must rule out gram-positive cocci versus gram-negative shelby organisms. We will use doxycycline and meropenem. Pending blood culture, urine culture, sputum culture, procalcitonin, and initial workup results. Thaddeus Ely MD
[2017-09-26] MEDS: Albuterol-Ipratrop 3 mg / 0.5 (3 ml) UD IH SCH ×4 (02:30→20:26)
[2017-09-26] MEDS: Pantoprazole 40 mg EC Tab PO SCH (06:10)
[2017-09-26] MEDS: Budesonide 0.5 mg/2 ml Inhal Susp UD IH SCH ×2 (07:44→20:26)
[2017-09-26] MEDS: Insulin Lispro (HUMAlog) HIGH Coverage SC SCH ×4 (08:44→21:40)
[2017-09-26] MEDS: Insulin Lispro (humaLOG) MIX 75/25(10 ml) SC SCH ×2 (08:45→16:20)
[2017-09-26 08:51] LABS: HEMOGLOBIN 12.1 g/dL (12.0-16.0); MEAN CELL VOLUME 88.7 fl (80.0-105.0); MEAN CORPUSCULAR HEMOGLOBIN 26.8 pg (25.0-35.0); MEAN CORPUSCULAR HGB CONC 30.3 g/dl (31.0-37.0); MEAN PLATELET VOLUME 9.9 fl (7.0-11.0); RBC 4.51 10^6/uL (3.5-6.1); RED CELL DISTRIBUTION WIDTH 15.9 % (11.5-14.5); WHITE BLOOD COUNT 11.9 10^3/ul (4.5-11.0)
--- NOTE | 2017-09-26 08:55 | PN ---
DATE: 09/26/2017 PULMONARY NOTE SUBJECTIVE: The patient appears comfortable this morning. She is not short of breath at rest. PHYSICAL EXAMINATION: VITAL SIGNS: Temperature is 97.4, pulse 94, respirations 18/20, blood pressure 122/62. Oxygen saturation on nasal cannula is 97%. HEENT: Normocephalic, atraumatic. No JVD. CARDIOVASCULAR: Systolic ejection murmur at the lower left sternal border. No S3 gallop. LUNGS: Crackles at both bases-chronic. Less rhonchi. No wheezing this morning. EXTREMITIES: Mild edema. No cyanosis, no clubbing. Calves are nontender to palpation. GI: Abdomen is soft, nontender and nondistended. Bowel sounds are positive. SKIN: No acute rash. NEUROLOGIC: Exam limited at the present time. IMPRESSION: 1. Right upper lobe pneumonia. 2. Acute bronchitis. 3. Advanced chronic obstructive pulmonary disease. 4. Advanced interstitial lung disease. 5. Extensive coronary artery disease. 6. Acute on chronic respiratory failure. PLAN: The patient appears comfortable this morning. She is not short of breath at rest. She does state to feeling much better overall. I did discuss the case with the night nurse at length. The night nurse stated that the patient had a very good night, with no signs of hemoptysis. On physical exam, there is certainly less bronchospasm noted. In addition, the alveolar-arterial gradient is also less. I will continue the current nebulizer treatments and inhaled steroids. I will also restart the intravenous steroids at a very low level-we will watch the blood sugars/fingersticks closely. I would continue with the antibiotic coverage as per Infectious Disease. There are no temperatures noted. Repeat labs are pending. Clinical status of the patient is definitely improved-compared to her initial presentation. However, again, her future status/prognosis does remain guarded-as she does continue to have advanced lung disease. I will discuss the above with Dr. Sher. Randell Becker MD [facility]
[2017-09-26 09:10] LABS: ALB/GLOB RATIO 0.9 (1.1-1.8); ALBUMIN 3.5 g/dL (3.0-4.8); CALCIUM 9.2 mg/dL (8.4-10.5)
[2017-09-26] MEDS: Magnesium Oxide 400 mg Tab UD PO SCH (09:54)
[2017-09-26] MEDS: Metoprolol Succinate 50 mg XL Tab PO SCH (09:55)
[2017-09-26] MEDS: Meropenem IV 1 gm in NS 50 ML IVPB SCH ×2 (09:57→21:06)
[2017-09-26] MEDS ORDERED: MethylPREDNISolone 40 mg Vial IVP SCH (10:00)
--- NOTE | 2017-09-26 11:22 | PN ---
DATE: 09/26/2017 SUBJECTIVE: The patient is in bed, in no acute distress, nontoxic. The patient was seen early this morning in room 265, bed 2. PHYSICAL EXAMINATION: VITAL SIGNS: Temperature is 97, blood pressure is 101/50, respiratory rate of 20. HEENT: Examination of HEENT is unremarkable. Neck: Supple. LUNGS: Have decreased breath sounds. HEART: Normal S1, S2. ABDOMEN: Soft, nontender. LABORATORY DATA: Laboratory examination reveals a white count of 11,900, hemoglobin of 12, platelets of 366. Chemistries reveals a BUN of 38, creatinine of 1.3. Procalcitonin of 0.05. Urinalysis is noted. Microbiology reveals gram-negative shelby in the sputum. The blood cultures are negative. Dr. Becker's note from today is reviewed. Right upper lobe pneumonia in a patient with advanced chronic obstructive lung disease and interstitial disease. ASSESSMENT AND PLAN: A 72-year-old with severe sepsis secondary to right upper lobe healthcare-associated pneumonia with a gram-negative shelby. Awaiting for the identification and sensitivity of gram-negative shelby. Currently on doxycycline and meropenem with a normal procalcitonin of 0.05. We will continue the present course. The patient appears to be improving. We will follow with you. Thaddeus Ely MD
--- NOTE | 2017-09-26 14:01 | PN ---
DATE: 09/26/2017 SUBJECTIVE: The patient is 72 years old, seen and examined, doing well. Less shortness of breath. No nausea or vomiting. No diarrhea. PHYSICAL EXAMINATION: VITAL SIGNS: She is afebrile, pulse 88, respirations 17, blood pressure 107/68. LUNGS: Bilateral fair airflow. No rhonchi or crackle; however, she has diffusely decreased breath sounds. HEART: S1 and S2 audible. ABDOMEN: Soft. Nontender. No rebound. No guarding. NEUROLOGICAL: She is awake, alert, oriented, communicative. LABORATORY EXAM: WBC is 11.9, hemoglobin 12, hematocrit 40, platelet 356. Chemistry: Sodium 144, potassium 4.2, chloride 90, CO2 of 43, BUN 38, creatinine 1.3, blood sugar of 128. ASSESSMENT: 1. Chronic obstructive pulmonary disease exacerbation. 2. Asthmatic bronchitis. 3. Hypertension. 4. Coronary artery disease. 5. Electrolyte imbalance. 6. Pseudomonas aeruginosa sputum positive, probably colonization. PLAN: The patient currently is on meropenem and doxycycline. Her blood sugar seems to be running high. The patient is not actively wheezing. I will cut down her steroid. Request for Physical Therapy evaluation and treatment. I offered the patient to go to TCU, but she does not want TCU. As soon as she feels better, she will rather go home. Ten Sher MD
[2017-09-26] MEDS: guaiFENesin DM 100 mg-10 mg/5 ml UD PO PRN ×2 (16:18→23:20)
[2017-09-26] MEDS: Insulin Detemir 100 units/ml Vial (Levemir) SC SCH (21:39)
[2017-09-26] MEDS: Albuterol-Ipratrop 3 mg / 0.5 (3 ml) UD IH PRN (23:38)
[2017-09-27] MEDS: Albuterol-Ipratrop 3 mg / 0.5 (3 ml) UD IH SCH ×4 (01:34→19:48)
[2017-09-27] MEDS: Pantoprazole 40 mg EC Tab PO SCH (05:50)
[2017-09-27] MEDS: Budesonide 0.5 mg/2 ml Inhal Susp UD IH SCH ×2 (07:16→19:48)
[2017-09-27] MEDS: Insulin Lispro (HUMAlog) HIGH Coverage SC SCH ×4 (08:31→22:32)
[2017-09-27] MEDS: Insulin Lispro (humaLOG) MIX 75/25(10 ml) SC SCH ×2 (08:32→17:43)
--- NOTE | 2017-09-27 09:07 | PN ---
DATE: 09/27/2017 PULMONARY NOTE SUBJECTIVE: The patient appears comfortable this morning. She is not short of breath at rest. PHYSICAL EXAMINATION: VITAL SIGNS: Temperature is 98.2, pulse is 94, respirations 18, blood pressure 129/76. Oxygen saturation on nasal cannula is 99%. HEENT: Normocephalic, atraumatic. No JVD. CARDIOVASCULAR: Systolic ejection murmur at the lower left sternal border. No S3 gallop. LUNGS: Crackles at both bases - chronic. Minimal/less rhonchi. No wheezing. EXTREMITIES: Mild edema. No cyanosis. No clubbing. Calves are nontender to palpation. GI: Abdomen is soft, nontender and nondistended. Bowel sounds are positive. SKIN: No acute rash. NEUROLOGIC: Limited at the present time. IMPRESSION: 1. Right upper lobe pneumonia. 2. Acute bronchitis. 3. Advanced chronic obstructive pulmonary disease. 4. Advanced interstitial lung disease. 5. Extensive coronary artery disease. 6. Acute on chronic respiratory failure. PLAN: The patient appears comfortable this morning. She is not short of breath at rest. Her hemoptysis has resolved. She does state to feeling much better overall. On physical exam, her bronchospasm continues to resolve. In addition, the alveolar arterial gradient also continues to resolve. Oxygen saturation on nasal cannula is now 99%. I will continue with the current nebulizer treatments and oral steroids (changed yesterday) for now. The patient remains on antibiotic therapy - as per Infectious Disease. There are no temperatures noted. There is a very mild leukocytosis. The clinical status of the patient is significantly improved - compared to her initial status. However, again, her future status/prognosis does remain very guarded. In addition, I would also advise repeating the CT scan - as an outpatient - to evaluate the right upper lobe (rule out underlying pathology). I will discuss the above with Dr. Sher. Randell Becker MD [facility]
[2017-09-27] MEDS: Metoprolol Succinate 50 mg XL Tab PO SCH (11:08)
[2017-09-27] MEDS: Magnesium Oxide 400 mg Tab UD PO SCH (11:09)
--- NOTE | 2017-09-27 12:08 | PN ---
DATE: 09/27/2017 SUBJECTIVE: The patient was seen earlier this morning. No fevers, no chills, no nausea, no vomiting. PHYSICAL EXAMINATION: VITAL SIGNS: Temperature is 98, blood pressure is 120/70, respiratory rate 16. HEENT: Examinaiton is unremarkable. NECK: Supple. LUNGS: Have decreased breath sounds. HEART: Normal S1 and S2. ABDOMEN: Soft, nontender. No rebound. No guarding. No masses. LABORATORY DATA: Reveals a white count of 11,900, hemoglobin of 12, platelets of 356. Chemistries reveal the patient' BUN is 38, creatinine of 1.3. Urinalysis is noted. Microbiology reveals Pseudomonas aeruginosa sensitive to Cipro and EKG shows QTc of 427. Chest x-ray from 09/25/[address] Becker's note from this morning is reviewed and appreciated. ASSESSMENT AND PLAN: This is a 72-year-old female with severe sepsis secondary to right upper lobe Pseudomonas with healthcare-associated pneumonia, colonizer versus a pathogen with a normal procalcitonin. We will discontinue doxycycline and meropenem and complete the p.o. Cipro Pseudomonas sensitive to p.o. Cipro. Thaddeus Ely MD
--- NOTE | 2017-09-27 13:58 | PN ---
DATE: 09/27/2017 SUBJECTIVE: The patient is 72 years old, seen and examined, sitting in chair. Seems to be comfortable. No nausea or vomiting. No diarrhea. She thinks she is back to baseline. PHYSICAL EXAMINATION: VITAL SIGNS: She is afebrile, pulse 89, respirations 18, blood pressure 121/61. LUNGS: Bilateral fair airflow; however, she has diffusely decreased breath sound, more pronounced posteriorly. HEART: S1 and S2 audible. ABDOMEN: Soft. Nontender. No rebound. No guarding. NEUROLOGICAL: She is awake, alert, oriented, communicative. EXTREMITIES: Bilateral leg, no edema. ASSESSMENT: 1. Terminal chronic obstructive pulmonary disease. 2. Mild renal insufficiency. 3. Coronary artery disease, status post angioplasty. 4. Exertional dyspnea. 5. Restless legs syndrome. 6. Anxiety disorder. PLAN: We will continue the nebulizer treatment. She has been switched to p.o. antibiotic. Cut down her steroid. I think she should be discharged home on maintenance prednisone of at least 5 mg daily to decrease frequency of her attacks. Ten Sher MD
[2017-09-27] MEDS: guaiFENesin DM 100 mg-10 mg/5 ml UD PO PRN ×2 (18:39→22:33)
[2017-09-27] MEDS: Insulin Detemir 100 units/ml Vial (Levemir) SC SCH (22:32)
[2017-09-28] MEDS: Albuterol-Ipratrop 3 mg / 0.5 (3 ml) UD IH SCH ×3 (01:31→13:06)
[2017-09-28] MEDS: Budesonide 0.5 mg/2 ml Inhal Susp UD IH SCH (07:13)
[2017-09-28 07:50] VITALS: PULSE 88; RESP 20; TEMP 97.7; O2SAT 98
--- NOTE | 2017-09-28 08:16 | PN ---
DATE: 09/28/2017 PULMONARY NOTE SUBJECTIVE: The patient appears comfortable this morning. She is not short of breath at rest. OBJECTIVE: VITAL SIGNS: Temperature is 98.3, pulse 85, respirations 18, last blood pressure recorded was 144/68. Oxygen saturation on nasal cannula is now 100%. HEENT: Normocephalic, atraumatic. No JVD. CARDIOVASCULAR: Systolic ejection murmur at the lower left sternal border. No S3 gallop. LUNGS: Crackles at both bases - chronic. Very minimal/less rhonchi. No wheezing. EXTREMITIES: Mild edema. No cyanosis, no clubbing. Calves are nontender to palpation. GI: Abdomen is soft, nontender and nondistended. Bowel sounds are positive. SKIN: No acute rash. NEUROLOGIC: Exam limited at the present time. IMPRESSION: 1. Right upper lobe pneumonia. 2. Acute bronchitis. 3. Advanced chronic obstructive pulmonary disease. 4. Advanced interstitial lung disease. 5. Extensive coronary artery disease. 6. [id number] respiratory failure. PLAN: The patient appears very comfortable this morning. She is not short of breath at rest. She is much less dyspneic on exertion. She does state to feeling much, much better overall. On physical exam, her bronchospasm continues to resolve. In addition, the alveolar-arterial gradient is also resolving. Oxygen saturation on nasal cannula is now 100%. I will continue with the current nebulizer treatments and low dose oral steroids (decreased yesterday) for now. The patient remains on antibiotic therapy - as per Infectious Disease. Clinical status of the patient is significantly improved overall. However, again, her future status/prognosis does remain guarded - as she does continue to have advanced lung disease. I did advise the patient to have an outpatient CAT scan - for followup of the right upper lobe abnormalities. The CAT scan can certainly be done as an outpatient over the next 1-2 months. I will discuss the above with Dr. Sher. Randell Becker MD [facility]
[2017-09-28] MEDS: Pantoprazole 40 mg EC Tab PO SCH (08:48)
[2017-09-28] MEDS: Albuterol-Ipratrop 3 mg / 0.5 (3 ml) UD IH PRN (10:46)
[2017-09-28] MEDS: Magnesium Oxide 400 mg Tab UD PO SCH (11:16)
[2017-09-28] MEDS: Metoprolol Succinate 50 mg XL Tab PO SCH (11:18)
[2017-09-28 11:25] VITALS: BP 133/68
[2017-09-28] MEDS: Insulin Lispro (HUMAlog) HIGH Coverage SC SCH ×3 (11:30→16:12)
[2017-09-28] MEDS: Insulin Lispro (humaLOG) MIX 75/25(10 ml) SC SCH (11:30)
[2017-09-28] MEDS: guaiFENesin DM 100 mg-10 mg/5 ml UD PO PRN (11:35)
--- NOTE | 2017-09-28 18:10 | PN ---
DATE: 09/28/2017 SUBJECTIVE: The patient was seen earlier this morning. No fevers, no chills. Tolerating the antibiotics well. She was seen in room 569, bed 2. Her respirations have improved. PHYSICAL EXAMINATION: VITAL SIGNS: Temperature of 98, blood pressure is 130/60, respiratory rate of 18. HEENT: Unremarkable. NECK: Supple. LUNGS: Decreased breath sounds. HEART: Normal S1, S2. ABDOMEN: Soft, nontender. LABORATORY EXAMINATION: Reveals a white count of 11,900, hemoglobin of 12, and platelets of 356. Coagulation is noted and chemistry reveals the patient's creatinine is 1.3. Urinalysis is noted. Microbiology reveals Pseudomonas aeruginosa. ASSESSMENT AND PLAN: A 72-year-old female seen earlier this morning in room 569, bed 2, comfortable, was admitted with severe sepsis secondary to right upper lobe Pseudomonas healthcare-associated pneumonia with normal procalcitonin with complete treatment with p.o. Cipro. It is sensitive to p.o. Cipro. We will follow closely with you. Thaddeus Ely MD
--- NOTE | 2017-10-01 08:09 | DS ---
HISTORY OF PRESENT ILLNESS: The patient is 72 years old, who was admitted with cough, congestion, shortness of breath, difficulty breathing and she was found to have COPD exacerbation, has been on IV steroids, nebulizer treatment, doing well, being discharged home today. PHYSICAL EXAMINATION: GENERAL: She is awake, alert, oriented, communicative. VITAL SIGNS: She is afebrile, pulse 58, respirations 20, blood pressure 133/68. LUNGS: Bilateral diffusely decreased breath sound. HEART: S1 and S2 audible. ABDOMEN: Soft. Nontender. No rebound. No guarding. NEUROLOGICAL: She is awake, alert, oriented, able to communicate. LABORATORY EXAM: Blood sugar is 231. ASSESSMENT: 1. Chronic obstructive pulmonary disease exacerbation. 2. Asthmatic bronchitis. 3. Coronary artery disease, status post angioplasty. 4. Insulin-dependent diabetes. 5. History of ventral hernia, not incarcerated. 6. Chronic anemia. PLAN: The patient is being discharged home. She will resume her medications including Requip 3 mg at bedtime. She will maintain herself on Spiriva. She is on Protonix 40 daily, Toprol-XL 50 mg daily, lisinopril 30 mg daily, isosorbide 60 mg daily. She uses insulin according to her blood sugar result. She is on Neurontin 200 three times a day, Lasix 40 mg daily, Plavix 75 daily. She is on Pulmicort, Lipitor 20 mg daily, aspirin 81 daily, allopurinol 300 daily. She is being discharged on tapering dose of steroid. She will take prednisone 20 mg daily for 5 days, 10 mg for 5 days and 5 mg daily for 5 days and she will follow up with Dr. Chamberlain. Ten Sher MD
== END 2017-09-28 13:24 | disposition home health service (06) | DRG 871 ==
LOC: ED 23:59 → ERH 09-25 01:49 → 2RNO 09-25 04:35 → 5RNO 09-26 13:02
PROVIDERS: ADMIT Internal Medicine; ATTEND Internal Medicine
PROC: 5A09357 Assistance with Respiratory Ventilation, Less than 24 Consecutive Hours, Continuous Positive Airway Pressure (ICD-10-PCS; principal; 2017-09-25)
DX: A41.9 Sepsis, unspecified organism (principal); J15.1 Pneumonia due to Pseudomonas; J96.21 Acute and chronic respiratory failure with hypoxia; J44.1 Chronic obstructive pulmonary disease with (acute) exacerbation; J47.0 Bronchiectasis with acute lower respiratory infection; J44.0 Chronic obstructive pulmonary disease with (acute) lower respiratory infection; R04.2 Hemoptysis; J20.9 Acute bronchitis, unspecified; J84.10 Pulmonary fibrosis, unspecified; I25.10 Atherosclerotic heart disease of native coronary artery without angina pectoris; R65.20 Severe sepsis without septic shock; D64.9 Anemia, unspecified; E11.9 Type 2 diabetes mellitus without complications; G25.81 Restless legs syndrome; I49.3 Ventricular premature depolarization; K43.9 Ventral hernia without obstruction or gangrene; I10 Essential (primary) hypertension; F41.9 Anxiety disorder, unspecified; E78.5 Hyperlipidemia, unspecified; N28.9 Disorder of kidney and ureter, unspecified; Z79.02 Long term (current) use of antithrombotics/antiplatelets; Z95.5 Presence of coronary angioplasty implant and graft; Z79.4 Long term (current) use of insulin; Z79.82 Long term (current) use of aspirin; Z99.81 Dependence on supplemental oxygen; Z88.0 Allergy status to penicillin; Z88.8 Allergy status to other drugs, medicaments and biological substances; Z87.891 Personal history of nicotine dependence

== ENCOUNTER 2017-10-03 23:06 | Inpatient (IN) | payer MEDICARE, MEDICAID ==
--- NOTE | 2017-10-03 23:43 | ED PDOC ---
Arrival/HPI - General Chief Complaint: Shortness Of Breath Time Seen by Provider: 10/03/17 23:36 Historian: Patient - History of Present Illness Narrative History of Present Illness (Text): 10/03/17 23:43 Mandy Miranda is a 72 year old female, whose past medical history includes COPD, pulmonary fibrosis, diabetes, hypertension, CAD with multiple coronary stents, hyponatremia, and peptic ulcer disease, who presents to the Emergency department brought in by EMS for worsening shortness of breath tonight. Patient states she took nebulizer treatments at home and received nebulizer treatments en route with minimal relief. Patient denies any fever, chills, nausea, vomiting , diarrhea, urinary symptoms, back pain, neck pain, headache, dizziness, or any other complaints. Symptom Onset: Gradual Symptom Course: Unchanged Activities at Onset: Light Context: Home Past Medical History - Provider Review Nursing Documentation Reviewed: Yes - Infectious Disease Hx of Infectious Diseases: None - Tetanus Immunization Tetanus Immunization: Unknown - Cardiac Hx Cardiac Disorders: Yes (CAD) Hx Hypertension: Yes - Pulmonary Hx Respiratory Disorders: Yes Hx Chronic Obstructive Pulmonary Disease (COPD): Yes - Neurological Hx Neurological Disorder: No - HEENT Hx HEENT Disorder: Yes Hx Cataracts: Yes - Renal Hx Renal Disorder: Yes Hx Renal Failure: Yes - Endocrine/Metabolic Hx Endocrine Disorders: Yes Hx Diabetes Mellitus Type 2: Yes - Hematological/Oncological Hx Blood Disorders: Yes Hx Hepatitis B: Yes - Integumentary Hx Dermatological Disorder: Yes - Musculoskeletal/Rheumatological Hx Musculoskeletal Disorders: No Hx Falls: No - Gastrointestinal Hx Gastrointestinal Disorders: Yes (VENTRAL HERNIA) - Genitourinary/Gynecological Hx Genitourinary Disorders: No - Psychiatric Hx Psychophysiologic Disorder: Yes Hx Anxiety: Yes Hx Substance Use: No - Surgical History Hx Coronary Stent: Yes (X9) Hx Hysterectomy: Yes (partial) - Anesthesia Hx Anesthesia Reactions: No Hx Malignant Hyperthermia: No - Suicidal Assessment Feels Threatened In Home Enviroment: No Family/Social History - Physician Review Nursing Documentation Reviewed: Yes Family/Social History: Unknown Family HX Smoking Status: Former Smoker Hx Alcohol Use: No Hx Substance Use: No Hx Substance Use Treatment: No Allergies/Home Meds Allergies/Adverse Reactions: Allergies FISH Allergy (Severe, Verified 10/04/17 04:08) THROAT SWELLING iodine Allergy (Verified 10/04/17 04:08) RASH oxaprozin [From Daypro] Allergy (Verified 10/04/17 04:08) RASH Penicillins Allergy (Verified 10/04/17 04:08) ANAPHYLAXIS zolpidem [From Ambien] Adverse Reaction (Intermediate, Verified 10/04/17 04:08) FATIGUE Fatigue and hallucinations. Home Medications: Home Meds Medication Instructions Recorded Confirmed Albuterol Sulfate [Ventolin Hfa] 2 puff INH PRN PRN 08/09/17 10/04/17 Furosemide [Lasix] 40 mg PO DAILY 08/09/17 10/04/17 Lisinopril [Zestril] 30 mg PO DAILY 08/09/17 10/04/17 Metoprolol Succinate [Toprol Xl] 50 mg PO DAILY 08/09/17 10/04/17 Tiotropium [place] Inhaler 18 mcg INH DAILY 08/09/17 10/04/17 [Spiriva Inhalation Handihaler Device] Review of Systems - Physician Review All systems were reviewed & negative as marked: Yes - Review of Systems Constitutional: Normal. absent: Fevers Eyes: Normal ENT: Normal Respiratory: SOB. absent: Cough Gastrointestinal: Normal. absent: Abdominal Pain, Nausea, Vomiting Genitourinary Female: Normal. absent: Dysuria, Frequency, Hematuria, Urine Output Changes Musculoskeletal: Normal. absent: Back Pain, Neck Pain Skin: Normal. absent: Rash Neurological: Normal. absent: Headache, Dizziness Endocrine: Normal Hemo/Lymphatic: Normal Psychiatric: Normal Physical Exam Vital Signs Reviewed: Yes Vital Signs Temp Pulse Resp BP Pulse Ox 10/04/17 06:40 116 H 23 92 L 10/04/17 04:56 109 H 22 95/58 L 99 10/04/17 04:01 121 H 20 100/62 99 10/04/17 03:20 120 H 20 98/60 L 99 10/04/17 03:00 120 H 20 86/50 L 99 10/04/17 02:34 130 H 16 89/55 L 100 10/04/17 01:24 133 H 22 115/66 100 10/03/17 23:30 22 95 10/03/17 23:14 99.0 F 148 H 24 189/93 H 100 Temperature: Afebrile Blood Pressure: Hypertensive Pulse: Tachycardic Respiratory Rate: Normal Appearance: Positive for: Well-Appearing, Non-Toxic, Comfortable Pain Distress: None Mental Status: Positive for: Alert and Oriented X 3 - Systems Exam Head: Present: Atraumatic, Normocephalic Pupils: Present: PERRL Extroacular Muscles: Present: EOMI Conjunctiva: Present: Normal Mouth: Present: Moist Mucous Membranes Neck: Present: Normal Range of Motion Respiratory/Chest: Present: Wheezes. No: Respiratory Distress, Accessory Muscle Use Cardiovascular: Present: Regular Rate and Rhythm, Normal S1, S2. No: Murmurs Abdomen: No: Tenderness, Distention, Peritoneal Signs Back: Present: Normal Inspection Upper Extremity: Present: Normal Inspection. No: Cyanosis, Edema Lower Extremity: Present: Normal Inspection. No: Edema Neurological: Present: GCS=15, CN II-XII Intact, Speech Normal Skin: Present: Warm, Dry, Normal Color. No: Rashes Psychiatric: Present: Alert, Oriented x 3, Normal Insight, Normal Concentration Medical Decision Making ED Course and Treatment: 10/03/17 23:43 Impression: 72 year old female brought in for shortness of breath. Plan: -- EKG -- CXR -- Labs, cardiac enzymes, BNP, VBG, blood cultures -- Solu-medrol -- Reassess and disposition Prior Visits: Notes and results from previous visits were reviewed. On 09/25/2017, pt was seen in the Emergency department for hemoptysis. Pt was admitted to the hospital for further evaluation. Progress Notes: Reviewed EKG, sinus tachycardia at 111 bpm. Septal infarct. Non-specific ST/T wave changes. 10/04/17 00:05 Chest X-ray reviewed, shows questionable infiltrate in right lower lobe. 10/04/17 00:[address] Sher, who is aware and agrees with plan. Accepts pt in to her service. 10/04/17 02:[address] Brittani Curry, manager front office, who is aware and agrees with plan. Pt will be admitted to the ICU for COPD and elevated troponin under Dr. Sher's service. resident services manager notified. - Lab Interpretations Microbiology Results: Microbiology Results 10/04/17 02:00 Blood-Venous Blood Culture - Preliminary NO GROWTH AFTER 48 HOURS 10/04/17 01:40 Blood-Venous Blood Culture - Preliminary NO GROWTH AFTER 48 HOURS Lab Results: 10/03/17 23:30 10/04/17 01:40 Lab Results 10/04/17 02:00: pCO2 78 H*, pO2 61.0 L, HCO3 32.7 H, ABG pH 7.23 L, ABG Total CO2 35.1 H, ABG O2 Saturation 92.0 L, ABG Base Excess 2.7, ABG Potassium 3.8, Glucose 448 H* D, Lactate 1.4, FiO2 32.0, Sodium 139.0, Chloride 98.0, Arterial Blood Potassium 3.8 10/04/17 01:40: Phosphorus 5.9 H 10/04/17 01:40: Procalcitonin 0.21 10/04/17 01:40: Sodium 136, Potassium 4.9, Chloride 88 L, Carbon Dioxide 39 H, Anion Gap 15, BUN 27 H, Creatinine 1.1, Est GFR ( Amer) 59, Est GFR (Non- Af Amer) 49, Random Glucose 548 H* D, Calcium 9.2, Magnesium 1.8, Total Bilirubin 0.5, AST 250 H D, ALT 105 H, Alkaline Phosphatase 118, Lactate Dehydrogenase 1034 H, Total Creatine Kinase 82, Troponin I 0.60 H* D, NT-Pro-B Natriuret Pep 419, Total Protein 7.3, Albumin 3.7, Globulin 3.6, Albumin/ Globulin Ratio 1.0 L 10/03/17 23:30: WBC 26.9 H* D, RBC 5.20, Hgb 14.2 D, Hct 46.9, MCV 90.2, MCH 27.3, MCHC 30.3 L, RDW 16.3 H, Plt Count 539 H, MPV 10.8, Gran % 58.8, Lymph % ( Auto) 27.4, [place] % (Auto) 11.5 H, Eos % (Auto) 2.2, Baso % (Auto) 0.1, Gran # 15.81 H, Lymph # (Auto) 7.4 H, [place] # (Auto) 3.1 H, Eos # (Auto) 0.6, Baso # ( Auto) 0.04 I have reviewed the lab results: Yes - RAD Interpretation Radiology Orders: 10/03/17 23:45 CHEST PORTABLE [RAD] Stat Azure Principal Solution Specialist: ED Physician - EKG Interpretation Interpreted by ED Physician: Yes Type: 12 lead EKG - Medication Orders Current Medication Orders: Acetaminophen (Tylenol 325mg Tab) 650 mg PO Q4H PRN PRN Reason: Pain, Mild (1-3) Acetaminophen (Tylenol 325mg Tab) 650 mg PO Q4 PRN PRN Reason: Fever >100.4 F Allopurinol (Zyloprim) 300 mg PO DAILY [facility] Last Admin: 10/06/17 10:07 Dose: 300 mg Alprazolam (Xanax) 0.25 mg PO TID PRN; Protocol PRN Reason: Anxiety Stop: 10/11/17 04:52 Last Admin: 10/05/17 11:05 Dose: 0.25 mg Behavioural Document 10/05/17 11:05 BRADY (Rec: 10/05/17 11:05 BRADY [id number]) Maintenance Maintenance Dose No Nonmedicinal Nonmedicinal Interventions Redirect Behavior Behavior for Medication: Anxiety Aspirin (Ecotrin) 81 mg PO DAILY [facility] Last Admin: 10/06/17 10:08 Dose: 81 mg Atorvastatin Calcium (Lipitor) 20 mg PO DAILY [facility] Last Admin: 10/06/17 10:07 Dose: 20 mg Benzocaine/Menthol (Cepacol Sore Throat) 1 jack MT Q2H PRN PRN Reason: Sore Throat Last Admin: 10/05/17 05:51 Dose: 1 jack Budesonide (Pulmicort Respules) 0.5 mg IH [id number] [facility] Last Admin: 10/06/17 20:20 Dose: 0.5 mg Carvedilol (Coreg) 3.125 mg PO BID [facility] Last Admin: 10/06/17 17:58 Dose: 3.125 mg MAR Pulse and Blood Pressure Document 10/06/17 17:58 SCOT (Rec: 10/06/17 17:58 [place] [id number] Pulse Pulse Rate (60-90) 91 Blood Pressure Blood Pressure (100/60-150/90) 107/52 Clopidogrel Bisulfate (Plavix) 75 mg PO DAILY [facility] Last Admin: 10/06/17 10:08 Dose: 75 mg Enoxaparin Sodium (Lovenox) 30 mg SC DAILY [facility] PRN Reason: Protocol Last Admin: 10/06/17 10:09 Dose: 30 mg Subcutaneous Administrations Document 10/06/17 10:09 MMA (Rec: 10/06/17 10:09 MMA [id number] Injection Site MAR Injection Site Left Arm Charges for Administration # of Subcutaneous Administrations 1 Furosemide (Lasix) 40 mg PO DAILY BRIANNA Last Admin: 10/06/17 10:07 Dose: 40 mg MAR Blood Pressure Document 10/06/17 10:07 MMA (Rec: 10/06/17 10:07 MMA [facility] [id number] Blood Pressure Blood Pressure (100/60-150/90) 116/53 Gabapentin (Neurontin) 200 mg PO TID BRIANNA PRN Reason: Protocol Last Admin: 10/06/17 17:59 Dose: 200 mg Behavioural Document 10/06/17 17:59 SCOT (Rec: 10/06/17 17:59 SCOT [facility] [id number][place] Maintenance Maintenance Dose Yes Nonmedicinal Nonmedicinal Interventions Therapeutic Communication Behavior Behavior for Medication: Anxiety Levofloxacin/Dextrose (Levaquin 750mg) 750 mg in 150 mls @ 100 mls/hr IVPB Q48H BRIANNA PRN Reason: Protocol Last Admin: 10/06/17 02:35 Dose: 100 mls/hr eMAR Start Stop Document 10/06/17 02:35 MG (Rec: 10/06/17 02:36 MG [facility] [place] Intravenous Solution Start Date 10/06/17 Start Time 02:35 End Date 10/06/17 End time 04:05 Total Infusion Time 90 Linezolid (Zyvox 600mg/300ml D5w) 600 mg in 300 mls @ 200 mls/hr IVPB Q12 BRIANNA PRN Reason: Protocol Stop: 10/13/17 22:01 Last Admin: 10/06/17 10:10 Dose: 200 mls/hr eMAR Start Stop Document 10/06/17 10:10 MMA (Rec: 10/06/17 10:10 MMA [facility] [id number] Intravenous Solution Start Date 10/06/17 Start Time 10:10 End Date 10/06/17 Meropenem (Merrem Iv 1 Gm Premix) 50 mls @ 100 mls/hr IVPB Q12 BRIANNA PRN Reason: Protocol Stop: 10/13/17 10:37 Last Admin: 10/06/17 09:30 Dose: 100 mls/hr eMAR Start Stop Document 10/06/17 09:30 MMA (Rec: 10/06/17 12:22 MMA [id number] Intravenous Solution Start Date 10/06/17 Start Time 09:30 End Date 10/06/17 End time 10:30 Total Infusion Time 60 Insulin Detemir (Levemir) 25 unit SC HS [facility] Last Admin: 10/05/17 21:13 Dose: 25 units MAR Blood Glucose Document 10/05/17 21:13 MG (Rec: 10/05/17 21:13 MG [facility] [place] Blood Glucose Finger Stick Blood Glucose (70-120) 240 Subcutaneous Administrations Document 10/05/17 21:13 MG (Rec: 10/05/17 21:13 MG [facility] [place] Injection Site MAR Injection Site Left Abdomen Charges for Administration # of Subcutaneous Administrations 1 Insulin Human Lispro (Humalog High) 0 units SC [facility] PRN Reason: Protocol Last Admin: 10/06/17 17:12 Dose: 15 units MAR Blood Glucose Document 10/06/17 17:12 SCOT (Rec: 10/06/17 17:12 SCOT [id number]) Blood Glucose Finger Stick Blood Glucose (70-120) 410 Subcutaneous Administrations Document 10/06/17 17:12 SCOT (Rec: 10/06/17 17:12 SCOT [facility] [id number][place] Injection Site MAR Injection Site Right Arm Charges for Administration # of Subcutaneous Administrations 1 Insulin Lispro Protam/Lispro Human (Humalog Mix 75/25) 15 units SC ACBD [facility] Last Admin: 10/06/17 17:12 Dose: 15 units MAR Blood Glucose Document 10/06/17 17:12 SCOT (Rec: 10/06/17 17:13 SCOT [facility] [id number][place] Blood Glucose Finger Stick Blood Glucose (70-120) 410 Subcutaneous Administrations Document 10/06/17 17:12 SCOT (Rec: 10/06/17 17:13 SCOT [facility] [id number][place] Injection Site MAR Injection Site Left Arm Charges for Administration # of Subcutaneous Administrations 1 Isosorbide Mononitrate (Imdur) 60 mg PO DAILY [facility] Last Admin: 10/06/17 10:07 Dose: 60 mg Levalbuterol HCl (Xopenex) 1.25 mg IH [id number] [facility] Last Admin: 10/06/17 20:20 Dose: 1.25 mg Lisinopril (Zestril) 2.5 mg PO DAILY [facility] Last Admin: 10/06/17 10:06 Dose: 2.5 mg MAR Pulse and Blood Pressure Document 10/06/17 10:06 MMA (Rec: 10/06/17 10:07 MMA [facility] [id number] Pulse Pulse Rate (60-90) 88 Blood Pressure Blood Pressure (100/60-150/90) 116/53 Methylprednisolone (Solu-Medrol) 30 mg IV Q12 [facility] Last Admin: 10/06/17 10:08 Dose: 30 mg eMAR Start Stop Document 10/06/17 10:08 MMA (Rec: 10/06/17 10:09 MMA [id number] Intravenous Solution Start Date 10/06/17 Start Time 10:09 End Date 10/06/17 End time 10:14 Total Infusion Time 5 Pantoprazole Sodium (Protonix Ec Tab) 40 mg PO 0600 [facility] Last Admin: 10/06/17 06:48 Dose: 40 mg Prednisone (Prednisone Tab) 10 mg PO BID [facility] Last Admin: 10/06/17 17:58 Dose: 10 mg Verapamil HCl (Calan Tab) 40 mg PO TID [facility] Last Admin: 10/06/17 17:58 Dose: 40 mg MAR Pulse and Blood Pressure Document 10/06/17 17:58 SCOT (Rec: 10/06/17 17:58 SCOT [facility] [id number][place] Pulse Pulse Rate (60-90) 91 Blood Pressure Blood Pressure (100/60-150/90) 107/52 Discontinued Medications Albuterol/Ipratropium (Duoneb 3 Mg/0.5 Mg (3 Ml) Ud) 3 ml IH Q15M [facility] Stop: 10/04/17 00:16 Last Admin: 10/04/17 00:15 Dose: 3 ml Albuterol/Ipratropium (Duoneb 3 Mg/0.5 Mg (3 Ml) Ud) 3 ml IH [id number] [facility] Last Admin: 10/04/17 08:29 Dose: 3 ml Enoxaparin Sodium (Lovenox) 70 mg SC Q12H [facility] PRN Reason: Protocol Stop: 10/05/17 23:59 Last Admin: 10/05/17 03:30 Dose: 70 mg Subcutaneous Administrations Document 10/05/17 03:30 MG (Rec: 10/05/17 05:34 MG [facility] [place] Injection Site MAR Injection Site Left Deltoid Charges for Administration # of Subcutaneous Administrations 1 Furosemide (Lasix) 40 mg IV ONCE ONE Stop: 10/04/17 19:01 Last Admin: 10/04/17 19:46 Dose: 40 mg eMAR Start Stop Document 10/04/17 19:46 MG (Rec: 10/04/17 19:46 MG [facility] [place] Intravenous Solution Start Date 10/04/17 Start Time 19:46 MAR Blood Pressure Document 10/04/17 19:46 MG (Rec: 10/04/17 19:46 MG [facility] [place] Blood Pressure Blood Pressure (100/60-150/90) 154/92 Aztreonam (Azactam 1 Gm) 100 mls @ 100 mls/hr IVPB STAT STA PRN Reason: Protocol Stop: 10/04/17 02:41 Last Admin: 10/04/17 03:41 Dose: 100 mls/hr eMAR Start Stop Document 10/04/17 03:41 SS (Rec: 10/04/17 03:41 SS [id number]) Intravenous Solution Start Date 10/04/17 Start Time 03:41 End Date 10/04/17 End time 04:41 Total Infusion Time 60 Levofloxacin/Dextrose (Levaquin 750mg) 750 mg in 150 mls @ 100 mls/hr IVPB STAT STA PRN Reason: Protocol Stop: 10/04/17 03:11 Last Admin: 10/04/17 02:03 Dose: 100 mls/hr eMAR Start Stop Document 10/04/17 02:03 AD (Rec: 10/04/17 02:04 AD [id number] Intravenous Solution Start Date 10/04/17 Start Time 02:03 Sodium Chloride (Sodium Chloride 0.9%) 1,000 mls @ 999 mls/hr IV .Q1H1M STA Stop: 10/04/17 04:38 Last Admin: 10/04/17 04:22 Dose: 999 mls/hr eMAR Start Stop Document 10/04/17 04:22 SS (Rec: 10/04/17 04:22 SS [id number]) Intravenous Solution Start Date 10/04/17 Start Time 04:22 End Date 10/04/17 End time 05:22 Total Infusion Time 60 Sodium Chloride (Sodium Chloride 0.9%) 1,000 mls @ 100 mls/hr IV .Q10H BRIANNA Last Admin: 10/04/17 07:30 Dose: 100 mls/hr eMAR Start Stop Document 10/04/17 07:30 KAC (Rec: 10/04/17 10:30 [id number]) Intravenous Solution Start Date 10/04/17 Start Time 07:30 Magnesium 2 gm/50 ml NS (Magnesium Sulfate 2 Gm/50 Ml Ns) 2 gm in 50 mls @ 50 mls/hr IVPB ONCE ONE Stop: 10/04/17 10:27 Last Admin: 10/04/17 10:28 Dose: 50 mls/hr eMAR Start Stop Document 10/04/17 10:28 KA (Rec: 10/04/17 10:28 [id number]) Intravenous Solution Start Date 10/04/17 Start Time 10:28 End Date 10/04/17 End time 11:28 Total Infusion Time 60 Meropenem (Merrem Iv 1 Gm Premix) 50 mls @ 100 mls/hr IVPB Q8 BRIANNA PRN Reason: Protocol Stop: 10/13/17 10:37 Last Admin: 10/05/17 09:13 Dose: 100 mls/hr eMAR Start Stop Document 10/05/17 09:13 BRADY (Rec: 10/05/17 09:14 BRADY [id number]) Intravenous Solution Start Date 10/05/17 Start Time 09:15 End Date 10/05/17 End time 09:45 Total Infusion Time 30 Sodium Chloride (Sodium Chloride 0.9%) 1,000 mls @ 100 mls/hr IV .Q10H BRIANNA Stop: 10/04/17 20:00 Insulin Human Lispro (Humalog Med) 0 units SC ACHS BRIANNA PRN Reason: Protocol Last Admin: 10/06/17 07:09 Dose: 8 units MAR Blood Glucose Document 10/06/17 07:09 MG (Rec: 10/06/17 07:09 MG [facility] [place] Blood Glucose Finger Stick Blood Glucose (70-120) 360 Subcutaneous Administrations Document 10/06/17 07:09 MG (Rec: 10/06/17 07:09 MG [facility] [place] Injection Site MAR Injection Site Left Deltoid Charges for Administration # of Subcutaneous Administrations 1 Insulin Human Lispro (Humalog) 15 units SC ONCE ONE Stop: 10/06/17 12:16 Last Admin: 10/06/17 12:27 Dose: 15 units MAR Blood Glucose Document 10/06/17 12:27 SCOT (Rec: 10/06/17 12:27 SCOT [id number]) Blood Glucose Finger Stick Blood Glucose (70-120) 462 Subcutaneous Administrations Document 10/06/17 12:27 SCOT (Rec: 10/06/17 12:27 SCOT [id number]) Injection Site MAR Injection Site Left Arm Charges for Administration # of Subcutaneous Administrations 1 Insulin Human Regular (Humulin R) 10 units IV STAT STA PRN Reason: Protocol Stop: 10/04/17 02:45 Last Admin: 10/04/17 03:58 Dose: 10 unit eMAR Start Stop Document 10/04/17 03:58 SS (Rec: 10/04/17 03:59 SS [id number]) Intravenous Solution Start Date 10/04/17 Start Time 03:58 End Date 10/04/17 End time 03:59 Total Infusion Time 1 MAR Blood Glucose Document 10/04/17 03:58 SS (Rec: 10/04/17 03:59 SS [id number]) Blood Glucose Finger Stick Blood Glucose (70-120) 487 Levalbuterol HCl (Xopenex) 0.63 mg IH [id number] PRN PRN Reason: Shortness of Breath Last Admin: 10/04/17 20:06 Dose: 0.63 mg Lisinopril (Zestril) 30 mg PO DAILY [facility] Last Admin: 10/04/17 10:19 Dose: 30 mg [facility] Pulse and Blood Pressure Document 10/04/17 10:19 KA (Rec: 10/04/17 10:20 [id number]) Pulse Pulse Rate (60-90) 75 Blood Pressure Blood Pressure (100/60-150/90) 143/62 Lorazepam (Ativan) 0.5 mg PO ONCE ONE PRN Reason: Protocol Stop: 10/04/17 00:27 Last Admin: 10/04/17 00:45 Dose: 0.5 mg Methylprednisolone (Solu-Medrol) 125 mg IVP STAT STA Stop: 10/03/17 23:46 Last Admin: 10/04/17 00:04 Dose: 125 mg IVP Administration Document 10/04/17 00:04 SS (Rec: 10/04/17 00:04 SS [id number]) Charges for Administration # of IVP Administrations 1 Methylprednisolone (Solu-Medrol) 40 mg IVP Q8 [facility] Last Admin: 10/05/17 05:34 Dose: 40 mg IVP Administration Document 10/05/17 05:34 MG (Rec: 10/05/17 05:34 MG [facility] [place] [place] Charges for Administration # of IVP Administrations 1 Methylprednisolone (Solu-Medrol) 40 mg IVP Q12 [facility] Last Admin: 10/05/17 09:58 Dose: 40 mg IVP Administration Document 10/05/17 09:58 DELIJ (Rec: 10/05/17 09:58 DELIJ [id number]) Charges for Administration # of IVP Administrations 1 Metoprolol Succinate (Toprol Xl) 50 mg PO DAILY [facility] Last Admin: 10/04/17 10:13 Dose: 50 mg MAR Pulse and Blood Pressure Document 10/04/17 10:13 KA (Rec: 10/04/17 10:14 [id number]) Pulse Pulse Rate (60-90) 75 Blood Pressure Blood Pressure (100/60-150/90) 143/62 Ropinirole HCl (Requip) 3 mg PO HS [facility] Last Admin: 10/05/17 21:13 Dose: 3 mg Sodium Polystyrene Sulfonate (Kayexalate Susp) 15 gm PO ONCE ONE Stop: 10/06/17 12:13 Last Admin: 10/06/17 12:28 Dose: 15 gm - Scribe Statement The provider has reviewed the documentation as recorded by the Inder Escalante All medical record entries made by the Inder were at my direction and personally dictated by me. I have reviewed the chart and agree that the record accurately reflects my personal performance of the history, physical exam, medical decision making, and the department course for this patient. I have also personally directed, reviewed, and agree with the discharge instructions and disposition. Disposition/Present on Arrival - Present on Arrival Any Indicators Present on Arrival: No History of DVT/PE: No History of Uncontrolled Diabetes: No Urinary Catheter: No History of Decub. Ulcer: No History Surgical Site Infection Following: Orthopedic Procedures - Disposition Have Diagnosis and Disposition been Completed?: Yes Diagnosis: COPD exacerbation, Pneumonia Disposition: HOSPITALIZED Disposition Time: 02:40 Condition: CRITICAL
[2017-10-03] MEDS: Albuterol-Ipratrop 3 mg / 0.5 (3 ml) UD IH SCH (23:45)
[2017-10-04 00:14] LABS: BASO # 0.04 K/mm3 (0.0-2.0); BASO % 0.1 % (0.0-3.0); EOS # 0.6 (0.0-0.7); EOS % 2.2 % (1.5-5.0); GRAN # 15.81 (1.4-6.5); GRAN % 58.8 % (50.0-68.0); LYMPH # 7.4 (1.2-3.4); LYMPH % 27.4 % (22.0-35.0); MEAN CELL VOLUME 90.2 fl (80.0-105.0); MEAN CORPUSCULAR HEMOGLOBIN 27.3 pg (25.0-35.0); MEAN CORPUSCULAR HGB CONC 30.3 g/dl (31.0-37.0); MEAN PLATELET VOLUME 10.8 fl (7.0-11.0); MONO # 3.1 (0.1-0.6); MONO % 11.5 % (1.0-6.0); RBC 5.2 10^6/uL (3.5-6.1); RED CELL DISTRIBUTION WIDTH 16.3 % (11.5-14.5)
[2017-10-04 00:15] LABS: HEMOGLOBIN 14.2 g/dL (12.0-16.0)
[2017-10-04] MEDS: Albuterol-Ipratrop 3 mg / 0.5 (3 ml) UD IH SCH ×2 (00:15)
[2017-10-04 00:16] LABS: WHITE BLOOD COUNT 26.9 10^3/ul (4.5-11.0)
[2017-10-04] MEDS ORDERED: Aztreonam 1 Gm in NS 100mL 100 ML IVPB STA (01:42)
[2017-10-04] MEDS ORDERED: levoFLOXacin 750 mg in D5W 750 MG/150 ML BAG IVPB STA (01:42)
[2017-10-04] MEDS ORDERED: Albuterol-Ipratrop 3 mg / 0.5 (3 ml) UD IH PRN ×2 (01:43→07:36)
[2017-10-04 02:10] LABS: ARTERIAL BLOOD GAS HCO3 32.7 mmol/L (21-28); ARTERIAL BLOOD GAS PCO2 78 mm/Hg (35-45); ARTERIAL BLOOD GAS TCO2 35.1 mmol.L (22-28)
[2017-10-04 02:36] LABS: ALBUMIN 3.7 g/dL (3.0-4.8); CALCIUM 9.2 mg/dL (8.4-10.5)
[2017-10-04 02:37] LABS: ARTERIAL BLOOD GAS PH 7.23 (7.35-7.45)
[2017-10-04 02:42] LABS: TROPONIN I 0.6 ng/mL
[2017-10-04] MEDS ORDERED: Insulin Regular 1 UNITS/0.01 ML ML IV STA (02:44)
[2017-10-04] MEDS ORDERED: Sodium Chloride 0.9% 1,000 ML IV STA ×2 (03:38→05:00)
[2017-10-04] MEDS ORDERED: Sodium Chloride 0.9% 1,000 ML IV SCH ×2 (03:45→14:15)
--- NOTE | 2017-10-04 04:11 | CP.PCM.CON ---
History of Present Illness - History of Present Illness History of Present Illness: Robert Newton PGY2 ICU Consult for Dr. Curry Ms. Miranda is a 72-year-old female the past medical history of COPD on home O2, asthma, bronchitis, DM 2, CAD S/P 8 stents, and hyperlipidemia who presents to the ED with shortness of breath, cough, blood tinged sputum for 2 days. Per patient's , the patient was just discharged from the hospital on Sunday for similar symptoms, and he also states that the patient's BiPAP machine at home does not have a proper fitting mask and that it needs replacement. Patient has close outpatient follow-up with her PMD Dr. Bowers as well as other specialists. The shortness of breath that she experiences is worsened with exertion, which has incapacitated her. The patient denies fevers/chills, nausea /vomiting/diarrhea, chest pain, abdominal pain, dysuria, hematuria, hematochezia , hematemesis. 12 point ROS was reviewed and is otherwise unremarkable. In ED, patient was given Azactam, Levaquin, Solu-medrol and Duoneb treatment. ICU consulted for elevated COPD exacerbation and elevated troponin. PMH: As above PSH: Unremarkable Meds: As per MAR Allergies: As noted on [employer] SHX: Former smoker, occasional alcohol use, denies drug use. On home O2, all day. Uses BiPAP at night. FH X: Heart disease and diabetes Review of Systems - Review of Systems All systems: reviewed and no additional remarkable complaints except (as per HPI ) Past Patient History - Infectious Disease Hx of Infectious Diseases: None - Tetanus Immunizations Tetanus Immunization: Unknown - Past Medical History & Family History Past Medical History?: Yes - Past Social History Smoking Status: Former Smoker Alcohol: Occasional Drugs: Denies Home Situation {Lives}: With Family - CARDIAC Hx Cardiac Disorders: Yes (CAD) Hx Heart Attack: Yes - PULMONARY Hx Respiratory Disorders: Yes Hx Asthma: Yes Hx Chronic Obstructive Pulmonary Disease (COPD): Yes - NEUROLOGICAL Hx Neurological Disorder: No - HEENT Hx HEENT Problems: Yes Hx Cataracts: Yes - RENAL Hx Chronic Kidney Disease: No - ENDOCRINE/METABOLIC Hx Endocrine Disorders: No - HEMATOLOGICAL/ONCOLOGICAL Hx Blood Disorders: No - INTEGUMENTARY Hx Dermatological Problems: Yes - MUSCULOSKELETAL/RHEUMATOLOGICAL Hx Musculoskeletal Disorders: No Hx Falls: No - GASTROINTESTINAL Hx Gastrointestinal Disorders: Yes (VENTRAL HERNIA) - GENITOURINARY/GYNECOLOGICAL Hx Genitourinary Disorders: No - PSYCHIATRIC Hx Psychophysiologic Disorder: Yes Hx Anxiety: Yes Hx Substance Use: No - SURGICAL HISTORY Hx Coronary Stent: Yes Hx Hysterectomy: Yes (partial) - ANESTHESIA Hx Anesthesia Reactions: No Hx Malignant Hyperthermia: No Meds Allergies/Adverse Reactions: Allergies Allergy/AdvReac Type Severity Reaction Status Date / Time FISH Allergy Severe THROAT Verified 10/04/17 04:08 SWELLING iodine Allergy RASH Verified 10/04/17 04:08 oxaprozin [From Daypro] Allergy RASH Verified 10/04/17 04:08 Penicillins Allergy ANAPHYLAXIS Verified 10/04/17 04:08 zolpidem [From Ambien] AdvReac Intermediate FATIGUE Verified 10/04/17 04:08 - Medications Medications: Current Medications Acetaminophen (Tylenol 325mg Tab) 650 mg PO Q4H PRN PRN Reason: Pain, Mild (1-3) Albuterol/Ipratropium (Duoneb 3 Mg/0.5 Mg (3 Ml) Ud) 3 ml IH Q4H PRN PRN Reason: Shortness of Breath Enoxaparin Sodium (Lovenox) 70 mg SC Q12H BRIANNA PRN Reason: Protocol Aztreonam (Azactam 1 Gm) 100 mls @ 100 mls/hr IVPB Q8H BRIANNA PRN Reason: Protocol Stop: 10/04/17 19:59 Sodium Chloride (Sodium Chloride 0.9%) 1,000 mls @ 999 mls/hr IV .Q1H1M STA Stop: 10/04/17 04:38 Sodium Chloride (Sodium Chloride 0.9%) 1,000 mls @ 100 mls/hr IV .Q10H BRIANNA Methylprednisolone (Solu-Medrol) 40 mg IVP Q8 [facility] Physical Exam - Constitutional Appears: Well, Non-toxic, No Acute Distress - Head Exam Head Exam: NORMAL INSPECTION - Eye Exam Eye Exam: Normal appearance - ENT Exam ENT Exam: Mucous Membranes Moist - Neck Exam Neck exam: Positive for: Normal Inspection - Respiratory Exam Respiratory Exam: Rhonchi (diffuse, R>L), Wheezes (r>L bases). absent: Clear to Auscultation Bilateral Additional comments: on BiPAP - Cardiovascular Exam Cardiovascular Exam: Tachycardia, +S1, +S2 - GI/Abdominal Exam GI & Abdominal Exam: Hernia (ventral, non painful), Soft. absent: Distended, Tenderness - Extremities Exam Extremities exam: Positive for: normal inspection - Back Exam Back exam: NORMAL INSPECTION - Neurological Exam Neurological exam: Alert - Psychiatric Exam Psychiatric exam: Normal Mood - Skin Skin Exam: Normal Color, Warm Results - Vital Signs Recent Vital Signs: Last Vital Signs Temp 99.0 F 10/03/17 23:14 Pulse 121 H 10/04/17 04:01 Resp 20 10/04/17 04:01 BP 100/62 10/04/17 04:01 Pulse Ox 99 10/04/17 04:01 - Labs Result Diagrams: 10/03/17 23:30 10/04/17 01:40 Assessment & Plan - Assessment and Plan (Free Text) Assessment: 72-year-old female with a past medical history of advanced COPD (on home O2) with multiple hospital admissions but never intubated presents for COPD exacerbation, primary respiratory acidosis and severe sepsis. Also noted is elevated troponin which could be due to sepsis, but given history of CAD and multiple risk factors, ACS should be ruled out. Hypotension and transaminitis also noted and likely due to sepsis. Plan: Neuro Maintain normothermia Monitor any changes in mental status which could signify CO2 retention Patient will be admitted to ICU for evaluation CV We will give 1 L NS bolus and monitor lung sounds If BP responds, will continue with 100 cc/h NS otherwise more boluses can be given Maintain MAP > 65 Echo ordered to evaluate EF and valvular function Cardiology consulted, recs appreciated Troponin and EKG trending to rule out VT Should be cautious with using blood thinners given presentation of blood tinged sputum Pulm Patient improving on BiPAP, continue BiPAP use ABG showed severe primary respiratory acidosis, follow-up ABGs to evaluate improvement Pulmonology sap basis consultant, Recs appreciated Given lung findings on imaging, antibiotics to cover HCAP GI NPO GI prophylaxis Hernia noted on exam, stable and not painful CMP will be repeated to assess for transaminitis If transaminitis remains, further workup may be necessary Renal Monitor urine output Monitor electrolytes and replete as necessary Given purely respiratory acidosis, no metabolic derangements need correction at this time ID Continue Levaquin and Aztreonam ID consulted, Recs appreciated Maintain normothermia Tylenol as needed for fevers Blood and urine cultures drawn Procol ordered Heme Leukocytosis is noted Labs on follow-up CBC Should avoid blood thinners given presentation of blood-tinged sputum Endo Hyperglycemia is noted Fluids will be given which should correct her hyperglycemia If hyperglycemia remains, monitor for any changes Case was reviewed and discussed with attending Dr. Marcellus Curry
[2017-10-04] MEDS: Enoxaparin 80 mg Syringe SC SCH ×2 (05:29→17:00)
--- NOTE | 2017-10-04 07:41 | RAD ---
HISTORY: sob COMPARISON: Portable chest 09/25/2017. FINDINGS: LUNGS: Coarsening chronic interstitial pulmonary changes is appreciated at the right greater left lung bases which may indicate developing pneumonia superimposed over fibrosis. Clinically correlate further. PLEURA: No significant pleural effusion identified, no pneumothorax apparent. CARDIOVASCULAR: Normal. OSSEOUS STRUCTURES: No significant abnormalities. VISUALIZED UPPER ABDOMEN: Normal. OTHER FINDINGS: None. IMPRESSION: Potential alveolitis developing at the bases over chronic interstitial pulmonary disease.
[2017-10-04] MEDS: MethylPREDNISolone 40 mg Vial IVP SCH ×2 (08:00→21:29)
[2017-10-04] MEDS ORDERED: Albuterol-Ipratrop 3 mg / 0.5 (3 ml) UD IH SCH (08:00)
--- NOTE | 2017-10-04 08:06 | CON ---
DATE: 10/04/2017 PULMONARY CONSULTATION REASON FOR CONSULTATION: Chronic obstructive pulmonary disease. REFERRING PHYSICIAN: Ten Sher MD. HISTORY OF PRESENT ILLNESS: The patient is a chronically ill 72-year-old female, with past medical history significant for end stage/advanced chronic obstructive pulmonary disease, advanced interstitial lung disease, recurrent respiratory failure, recent pneumonia,pulmonary fibrosis, on home oxygen, diabetes mellitus, hypertension, coronary artery disease, status post multiple cardiac stents, who presents to [facility] with a 2-day history of worsening shortness of breath at rest, dyspnea on exertion, cough and sputum production. There is no history of chest pain, coughing up of blood or chest pain - made worse with deep respirations. There is no history of temperatures, chills or infectious exposure. There is no history of night sweats, weight loss or appetite change prior to the above events. No history of leg or calf pains. No history of syncope or diaphoresis. No history of recent travel or trauma. REVIEW OF SYSTEMS: No history of nausea, vomiting, diarrhea. No acute urinary symptoms. No new neurologic or musculoskeletal complaints. Rest of the review of systems is negative. ALLERGIES: TO FISH IODINE, PENICILLIN AND AMBIEN. SOCIAL HISTORY: Positive for extensive tobacco usage. No alcohol. FAMILY HISTORY: No inheritable diseases. HOME MEDICATIONS: Include Toprol, DuoNebs, Ventolin, Xanax, Zyloprim, Lasix, Plavix, Pulmicort, Lipitor, Zestril, Imdur, Levemir, Neurontin, Requip, prednisone and Protonix. PHYSICAL EXAMINATION: GENERAL: The patient is not short of breath at the present time. She is not using accessory muscles for breathing. VITAL SIGNS: Temperature is 99, pulse on the monitor is 101, respiratory rate 18/20, blood pressure 95/58. Oxygen saturation currently on nasal cannula - 94%. HEENT: Normocephalic, atraumatic. No JVD. CARDIOVASCULAR: Systolic ejection murmur at the lower left sternal border. No S3 gallop. LUNGS: Crackles at both bases - chronic. Minimal rhonchi. Minimal wheezing. EXTREMITIES: Mild edema. No cyanosis. No clubbing. Calves are nontender to palpation. GI: Abdomen is soft, nontender and nondistended. Bowel sounds are positive. SKIN: No acute rash. NEUROLOGIC: Limited at the present time. PERTINENT LABORATORY DATA: Chest x-ray was done and reviewed. There are extensive chronic interstitial changes noted. However, there are also questionably increased markings noted at the right base. CBC: White count 26.9K, hemoglobin 14.2, hematocrit 46.9, platelets of 539,000. Arterial blood gas was done on 32% oxygen. Results are: PH is 7.23, pCO2 of 78, pO2 of 61. Complete metabolic profile: Chloride 88, carbon dioxide 39, BUN 27, glucose 548, phosphorus 5.9, AST 250, ALT 105, LDH 1034. Troponin 0.60. Rest of the metabolic profile is within normal limits. IMPRESSION: 1. Recurrent respiratory failure. 2. Rule out pneumonia - right lower lobe. 3. Recurrent bronchitis. 4. Advanced chronic obstructive pulmonary disease. 5. Advanced interstitial lung disease. 6. Extensive coronary artery disease, with positive troponin. PLAN: I did discuss the case with the patient and family at length. I have also reviewed the chart at length. The patient presents to [facility] with a 2-day history of worsening pulmonary symptoms. Again, I did review the chest x-ray as above. There are extensive chronic changes noted. However, I do question whether there are increased markings at the right base - compared to the previous films. Pancultures have been ordered and will be analyzed when feasible. Dr. Ely (Infectious Disease) has been called on the case for antibiotic usage. I did discuss the case with Dr. Ely. I have also reviewed the arterial blood gas. Acute on chronic respiratory failure is noted. A repeat arterial blood gas should be done within the next hour and I will be called with those results. Depending on the results, we will then decide on the BiPAP usage. On physical exam, there is [id number] bronchospasm noted. I will continue with the current DuoNeb treatments, inhaled steroids and intravenous steroids for now. Repeat labs are ordered. Procalcitonin is also ordered. The patient does feel much better this morning - compared to yesterday. She is clinically improved. However, her future status/prognosis does remain poor-- as she is now having more frequent hospitalizations. I did discuss the overall situation and clinical status/ prognosis with the family at length. I will discuss the above with the entire ICU team in the next few moments. I will also discuss the above with Dr. Sher later this morning. Thank you very much for this pulmonary consultation. Randell Becker MD [facility]
[2017-10-04 08:14] LABS: ARTERIAL BLOOD GAS HCO3 34.2 mmol/L (21-28); ARTERIAL BLOOD GAS O2 CAPACITY 16.5 mL/dl (16-24); ARTERIAL BLOOD GAS O2 CONTENT 15.4 ML/dl (15-23); ARTERIAL BLOOD GAS O2 SAT 93.2 % (95-98); ARTERIAL BLOOD GAS PCO2 68 mm/Hg (35-45); ARTERIAL BLOOD GAS PH 7.31 (7.35-7.45); ARTERIAL BLOOD GAS TCO2 36.3 mmol.L (22-28)
[2017-10-04 08:20] LABS: ALBUMIN 3.3 g/dL (3.0-4.8); CALCIUM 8.7 mg/dL (8.4-10.5)
[2017-10-04] MEDS: Insulin Lispro (humaLOG) MEDIUM Coverage SC SCH ×4 (08:29→21:32)
[2017-10-04] MEDS: Budesonide 0.5 mg/2 ml Inhal Susp UD IH SCH ×2 (08:29→20:06)
[2017-10-04] MEDS: Pantoprazole 40 mg EC Tab PO SCH (08:32)
[2017-10-04 09:14] LABS: BASO # 0.01 K/mm3 (0.0-2.0); GRAN # 19.73 (1.4-6.5); GRAN % 94.6 % (50.0-68.0); HEMOGLOBIN 12.7 g/dL (12.0-16.0); LYMPH # 0.4 (1.2-3.4); LYMPH % 2.1 % (22.0-35.0); MEAN CELL VOLUME 88.8 fl (80.0-105.0); MEAN CORPUSCULAR HEMOGLOBIN 27.3 pg (25.0-35.0); MEAN CORPUSCULAR HGB CONC 30.7 g/dl (31.0-37.0); MEAN PLATELET VOLUME 10.5 fl (7.0-11.0); MONO # 0.7 (0.1-0.6); MONO % 3.3 % (1.0-6.0); PLATELET COUNT 346 10^3/uL (120.0-450.0); RBC 4.66 10^6/uL (3.5-6.1); WHITE BLOOD COUNT 20.9 10^3/ul (4.5-11.0)
[2017-10-04] MEDS ORDERED: Levalbuterol 0.63 MG/3 ML Inhal Soln UD IH PRN (09:27)
[2017-10-04] MEDS ORDERED: Magnesium 2 gm/50 ml NS 2 GM/50 ML BAG IVPB ONE (09:28)
--- NOTE | 2017-10-04 09:58 | CP.CCUPN ---
<Jesse Chauhan - Last Filed: 10/04/17 11:11> CCU Subjective - Physician Review Subjective (Free Text): Pt seen and evaluated at bedside. Pt reports resolution of her SOB, and states that she no longer feels dizzy. Pt has no complaints at this time. Pt denies fever, lightheadedness, dizziness, chest pain, SOB, abdominal pain, nausea, vomiting, diarrhea, hematochezia, melena. Pt reports having 3 bowel movements overnight, which were normal. A 12 point ROS was reviewed and is unremarkable except as stated above. CCU Objective - Vital Signs / Intake & Output Vital Signs (Last 4 hours): Vital Signs Pulse Pulse Ox 10/04/17 08:25 113 H 10/04/17 06:46 100 - Physical Exam Narrative Physical Exam (Free Text): Pt in no acute respiratory distress, but does have trouble catching her breath while answering questions during the interview. Head: Positive for: Atraumatic, Normocephalic Pupils: Positive for: PERRL Extroacular Muscles: Positive for: EOMI Conjunctiva: Positive for: Normal Mouth: Positive for: Moist Mucous Membranes Neck: Positive for: Normal Range of Motion Respiratory/Chest: Positive for: Decreased Breath Sounds (throughout all lung willis), Rhonchi (greatest on lower left lung field), Other (Pt is visibly short of breath during the interview but denies SOB when asked). Negative for: Respiratory Distress, Accessory Muscle Use Cardiovascular: Positive for: Normal S1, S2, Tachycardic. Negative for: Murmurs Abdomen: Positive for: Normal Bowel Sounds (in all 4 quadrants), Other (large umbilical hernia, which pt did not allow me to examine). Negative for: Tenderness, Distention, Peritoneal Signs Upper Extremity: Positive for: Normal Inspection. Negative for: Cyanosis, Edema Lower Extremity: Positive for: Normal Inspection. Negative for: Edema, CALF TENDERNESS, Tenderness Neurological: Positive for: GCS=15, CN II-XII Intact, Speech Normal Skin: Positive for: Warm, Dry, Normal Color (scattered mild senile purpora on bilateral upper extremities). Negative for: Rashes Psychiatric: Positive for: Alert, Oriented x 3, Normal Insight, Normal Concentration, Normal Mood - Medications Active Medications: Active Medications Generic Name Dose Route Start Last Admin Trade Name Freq PRN Reason Stop Dose Admin Acetaminophen 650 mg 10/04/17 01:43 Tylenol 325mg Tab PO Q4H PRN Pain, Mild (1-3) Acetaminophen 650 mg 10/04/17 04:50 Tylenol 325mg Tab PO Q4 PRN Fever >100.4 F Allopurinol 300 mg 10/04/17 10:00 Zyloprim PO DAILY [facility] Alprazolam 0.25 mg 10/04/17 04:51 Xanax PO 10/11/17 04:52 TID PRN Anxiety Protocol Aspirin 81 mg 10/04/17 10:00 Ecotrin PO DAILY [facility] Atorvastatin Calcium 20 mg 10/04/17 10:00 Lipitor PO DAILY [facility] Budesonide 0.5 mg 10/04/17 08:00 10/04/17 08:29 Pulmicort Respules IH 0.5 mg [id number] [facility] Administration Clopidogrel Bisulfate 75 mg 10/04/17 10:00 Plavix PO DAILY [facility] Enoxaparin Sodium 70 mg 10/04/17 03:15 10/04/17 05:29 Lovenox SC 70 mg Q12H [facility] Administration Protocol Furosemide 40 mg 10/04/17 10:00 Lasix PO DAILY [facility] Gabapentin 200 mg 10/04/17 10:00 Neurontin PO TID [facility] Protocol Aztreonam 100 mls @ 100 mls/hr 10/04/17 11:00 Azactam 1 Gm IVPB 10/04/17 19:59 Q8H [facility] Protocol Sodium Chloride 1,000 mls @ 100 mls/hr 10/04/17 03:45 Sodium Chloride 0.9% IV .Q10H [facility] Levofloxacin/Dextrose 750 mg in 150 mls @ 100 mls/hr 10/06/17 02:00 Levaquin 750mg IVPB Q48H [facility] Protocol Magnesium 2 gm/50 ml NS 2 gm in 50 mls @ 50 mls/hr 10/04/17 09:28 Magnesium Sulfate 2 Gm/50 Ml Ns IVPB 10/04/17 10:27 ONCE ONE Insulin Detemir 25 unit 10/04/17 22:00 Levemir SC HS [facility] Insulin Human Lispro 0 units 10/04/17 07:30 10/04/17 08:29 Humalog Med SC 10 units ACHS [facility] Administration Protocol Isosorbide Mononitrate 60 mg 10/05/17 10:00 Imdur PO DAILY [facility] Levalbuterol HCl 0.63 mg 10/04/17 09:27 Xopenex IH [id number] PRN Shortness of Breath Lisinopril 30 mg 10/04/17 10:00 Zestril PO DAILY [facility] Methylprednisolone 40 mg 10/04/17 06:00 Solu-Medrol IVP Q8 [facility] Metoprolol Succinate 50 mg 10/04/17 10:00 Toprol Xl PO DAILY [facility] Pantoprazole Sodium 40 mg 10/04/17 06:00 10/04/17 08:32 Protonix Ec Tab PO 40 mg 0600 [facility] Administration Ropinirole HCl 3 mg 10/04/17 22:00 Requip PO HS [facility] Verapamil HCl 40 mg 10/04/17 10:00 Calan Tab PO TID [facility] - Patient Studies Lab Studies: Lab Studies 10/04/17 10/04/17 10/04/17 Range/Units 08:40 07:48 07:33 WBC 20.9 H D (4.5-11.0) 10^3/ul RBC 4.66 (3.5-6.1) 10^6/uL Hgb 12.7 (12.0-16.0) g/dL Hct 41.4 (36.0-48.0) % MCV 88.8 (80.0-105.0) fl MCH 27.3 (25.0-35.0) pg MCHC 30.7 L (31.0-37.0) g/dl RDW 16.0 H (11.5-14.5) % Plt Count 346 (120.0-450.0) 10^3/uL MPV 10.5 (7.0-11.0) fl Gran % 94.6 H (50.0-68.0) % Lymph % (Auto) 2.1 L (22.0-35.0) % [place] % (Auto) 3.3 (1.0-6.0) % Eos % (Auto) 0.0 L (1.5-5.0) % Baso % (Auto) 0.0 (0.0-3.0) % Gran # 19.73 H (1.4-6.5) Lymph # (Auto) 0.4 L (1.2-3.4) [place] # (Auto) 0.7 H (0.1-0.6) Eos # (Auto) 0.0 (0.0-0.7) Baso # (Auto) 0.01 (0.0-2.0) K/mm3 pCO2 68 H (35-45) mm/Hg pO2 62.0 L (80-100) mm/Hg HCO3 34.2 H (21-28) mmol/L ABG pH 7.31 L (7.35-7.45) ABG Total CO2 36.3 H (22-28) mmol.L ABG O2 Saturation 93.2 L (95-98) % ABG O2 Content 15.4 (15-23) ML/dl ABG Base Excess 6.0 H (-2.0-3.0) mmol/L ABG Hemoglobin 12.0 (11.7-17.4) g/dL ABG Carboxyhemoglobin 1.7 H (0.5-1.5) % POC ABG HHb (Measured) 6.6 H (0-5) % ABG Methemoglobin 0.6 (0.0-3.0) % ABG O2 Capacity 16.5 (16-24) mL/dl Hgb O2 Saturation 91.1 L (95.0-98.0) % FiO2 28.0 % Sodium (132-148) mmol/L Potassium (3.6-5.0) mmol/L Chloride (98-107) mmol/L Carbon Dioxide (21-33) mmol/L Anion Gap (10-20) BUN (7-21) mg/dL Creatinine (0.7-1.2) mg/dl Est GFR ( Amer) Est GFR (Non-Af Amer) POC Glucose (mg/dL) 366 H (65-110) mg/dL Random Glucose (70-110) mg/dL Calcium (8.4-10.5) mg/dL Magnesium (1.7-2.2) mg/dL Total Bilirubin (0.2-1.3) mg/dL AST (14-36) U/L ALT (7-56) U/L Alkaline Phosphatase (38-126) U/L Lactate Dehydrogenase (333-699) U/L Total Creatine Kinase (35-230) U/L Total Protein (5.8-8.3) g/dL Albumin (3.0-4.8) g/dL Globulin gm/dL Albumin/Globulin Ratio (1.1-1.8) 10/04/17 10/04/17 10/04/17 Range/Units 07:15 05:03 04:21 WBC (4.5-11.0) 10^3/ul RBC (3.5-6.1) 10^6/uL Hgb (12.0-16.0) g/dL Hct (36.0-48.0) % MCV (80.0-105.0) fl MCH (25.0-35.0) pg MCHC (31.0-37.0) g/dl RDW (11.5-14.5) % Plt Count (120.0-450.0) 10^3/uL MPV (7.0-11.0) fl Gran % (50.0-68.0) % Lymph % (Auto) (22.0-35.0) % [place] % (Auto) (1.0-6.0) % Eos % (Auto) (1.5-5.0) % Baso % (Auto) (0.0-3.0) % Gran # (1.4-6.5) Lymph # (Auto) (1.2-3.4) [place] # (Auto) (0.1-0.6) Eos # (Auto) (0.0-0.7) Baso # (Auto) (0.0-2.0) K/mm3 pCO2 (35-45) mm/Hg pO2 (80-100) mm/Hg HCO3 (21-28) mmol/L ABG pH (7.35-7.45) ABG Total CO2 (22-28) mmol.L ABG O2 Saturation (95-98) % ABG O2 Content (15-23) ML/dl ABG Base Excess (-2.0-3.0) mmol/L ABG Hemoglobin (11.7-17.4) g/dL ABG Carboxyhemoglobin (0.5-1.5) % POC ABG HHb (Measured) (0-5) % ABG Methemoglobin (0.0-3.0) % ABG O2 Capacity (16-24) mL/dl Hgb O2 Saturation (95.0-98.0) % FiO2 % Sodium 135 (132-148) mmol/L Potassium 4.8 (3.6-5.0) mmol/L Chloride 93 L (98-107) mmol/L Carbon Dioxide 31 (21-33) mmol/L Anion Gap 15 (10-20) BUN 31 H (7-21) mg/dL Creatinine 1.1 (0.7-1.2) mg/dl Est GFR ( Amer) 59 Est GFR (Non-Af Amer) 49 POC Glucose (mg/dL) 363 H 467 H* (65-110) mg/dL Random Glucose 475 H* (70-110) mg/dL Calcium 8.7 (8.4-10.5) mg/dL Magnesium 1.6 L (1.7-2.2) mg/dL Total Bilirubin 0.3 (0.2-1.3) mg/dL AST 180 H D (14-36) U/L ALT 108 H (7-56) U/L Alkaline Phosphatase 93 (38-126) U/L Lactate Dehydrogenase 834 H (333-699) U/L Total Creatine Kinase 305 H (35-230) U/L Total Protein 6.5 (5.8-8.3) g/dL Albumin 3.3 (3.0-4.8) g/dL Globulin 3.2 gm/dL Albumin/Globulin Ratio 1.0 L (1.1-1.8) // Range/Units 03:51 WBC (4.5-11.0) 10^3/ul RBC (3.5-6.1) 10^6/uL Hgb (12.0-16.0) g/dL Hct (36.0-48.0) % MCV (80.0-105.0) fl MCH (25.0-35.0) pg MCHC (31.0-37.0) g/dl RDW (11.5-14.5) % Plt Count (120.0-450.0) 10^3/uL MPV (7.0-11.0) fl Gran % (50.0-68.0) % Lymph % (Auto) (22.0-35.0) % [place] % (Auto) (1.0-6.0) % Eos % (Auto) (1.5-5.0) % Baso % (Auto) (0.0-3.0) % Gran # (1.4-6.5) Lymph # (Auto) (1.2-3.4) [place] # (Auto) (0.1-0.6) Eos # (Auto) (0.0-0.7) Baso # (Auto) (0.0-2.0) K/mm3 pCO2 (35-45) mm/Hg pO2 (80-100) mm/Hg HCO3 (21-28) mmol/L ABG pH (7.35-7.45) ABG Total CO2 (22-28) mmol.L ABG O2 Saturation (95-98) % ABG O2 Content (15-23) ML/dl ABG Base Excess (-2.0-3.0) mmol/L ABG Hemoglobin (11.7-17.4) g/dL ABG Carboxyhemoglobin (0.5-1.5) % POC ABG HHb (Measured) (0-5) % ABG Methemoglobin (0.0-3.0) % ABG O2 Capacity (16-24) mL/dl Hgb O2 Saturation (95.0-98.0) % FiO2 % Sodium (132-148) mmol/L Potassium (3.6-5.0) mmol/L Chloride (98-107) mmol/L Carbon Dioxide (21-33) mmol/L Anion Gap (10-20) BUN (7-21) mg/dL Creatinine (0.7-1.2) mg/dl Est GFR ( Amer) Est GFR (Non-Af Amer) POC Glucose (mg/dL) 487 H* (65-110) mg/dL Random Glucose (70-110) mg/dL Calcium (8.4-10.5) mg/dL Magnesium (1.7-2.2) mg/dL Total Bilirubin (0.2-1.3) mg/dL AST (14-36) U/L ALT (7-56) U/L Alkaline Phosphatase (38-126) U/L Lactate Dehydrogenase (333-699) U/L Total Creatine Kinase (35-230) U/L Total Protein (5.8-8.3) g/dL Albumin (3.0-4.8) g/dL Globulin gm/dL Albumin/Globulin Ratio (1.1-1.8) Laboratory Results - last 24 hr 10/04/17 10/04/17 10/04/17 03:51 04:21 05:03 WBC RBC Hgb Hct MCV MCH MCHC RDW Plt Count MPV Gran % Lymph % (Auto) [place] % (Auto) Eos % (Auto) Baso % (Auto) Gran # Lymph # (Auto) [place] # (Auto) Eos # (Auto) Baso # (Auto) pCO2 pO2 HCO3 ABG pH ABG Total CO2 ABG O2 Saturation ABG O2 Content ABG Base Excess ABG Hemoglobin ABG Carboxyhemoglobin POC ABG HHb (Measured) ABG Methemoglobin ABG O2 Capacity Hgb O2 Saturation FiO2 Sodium Potassium Chloride Carbon Dioxide Anion Gap BUN Creatinine Est GFR ( Amer) Est GFR (Non-Af Amer) POC Glucose (mg/dL) 487 H* 467 H* 363 H Random Glucose Calcium Magnesium Total Bilirubin AST ALT Alkaline Phosphatase Lactate Dehydrogenase Total Creatine Kinase Total Protein Albumin Globulin Albumin/Globulin Ratio 10/04/17 10/04/17 10/04/17 07:15 07:33 07:48 WBC RBC Hgb Hct MCV MCH MCHC RDW Plt Count MPV Gran % Lymph % (Auto) [place] % (Auto) Eos % (Auto) Baso % (Auto) Gran # Lymph # (Auto) [place] # (Auto) Eos # (Auto) Baso # (Auto) pCO2 68 H pO2 62.0 L HCO3 34.2 H ABG pH 7.31 L ABG Total CO2 36.3 H ABG O2 Saturation 93.2 L ABG O2 Content 15.4 ABG Base Excess 6.0 H ABG Hemoglobin 12.0 ABG Carboxyhemoglobin 1.7 H POC ABG HHb (Measured) 6.6 H ABG Methemoglobin 0.6 ABG O2 Capacity 16.5 Hgb O2 Saturation 91.1 L FiO2 28.0 Sodium 135 Potassium 4.8 Chloride 93 L Carbon Dioxide 31 Anion Gap 15 BUN 31 H Creatinine 1.1 Est GFR ( Amer) 59 Est GFR (Non-Af Amer) 49 POC Glucose (mg/dL) 366 H Random Glucose 475 H* Calcium 8.7 Magnesium 1.6 L Total Bilirubin 0.3 AST 180 H D ALT 108 H Alkaline Phosphatase 93 Lactate Dehydrogenase 834 H Total Creatine Kinase 305 H Total Protein 6.5 Albumin 3.3 Globulin 3.2 Albumin/Globulin Ratio 1.0 L 10/04/17 08:40 WBC 20.9 H D RBC 4.66 Hgb 12.7 Hct 41.4 MCV 88.8 MCH 27.3 MCHC 30.7 L RDW 16.0 H Plt Count 346 MPV 10.5 Gran % 94.6 H Lymph % (Auto) 2.1 L [place] % (Auto) 3.3 Eos % (Auto) 0.0 L Baso % (Auto) 0.0 Gran # 19.73 H Lymph # (Auto) 0.4 L [place] # (Auto) 0.7 H Eos # (Auto) 0.0 Baso # (Auto) 0.01 pCO2 pO2 HCO3 ABG pH ABG Total CO2 ABG O2 Saturation ABG O2 Content ABG Base Excess ABG Hemoglobin ABG Carboxyhemoglobin POC ABG HHb (Measured) ABG Methemoglobin ABG O2 Capacity Hgb O2 Saturation FiO2 Sodium Potassium Chloride Carbon Dioxide Anion Gap BUN Creatinine Est GFR ( Amer) Est GFR (Non-Af Amer) POC Glucose (mg/dL) Random Glucose Calcium Magnesium Total Bilirubin AST ALT Alkaline Phosphatase Lactate Dehydrogenase Total Creatine Kinase Total Protein Albumin Globulin Albumin/Globulin Ratio EKG/Cardiology Studies: Cardiology / EKG Studies 10/04/17 07:00 ELECTROCARDIOGRAM Q6H Comment: Reason For Exam: elevated trops; ALLEGRA 10/04/17 13:00 ELECTROCARDIOGRAM Q6H Comment: Reason For Exam: elevated trops; ALLEGRA 10/05/17 07:00 ELECTROCARDIOGRAM Routine Comment: Reason For Exam: CAD PRE OP:: N Does Patient Have a Pacemaker?: No Fingerstick Blood Sugar Results: 465 Review of Systems - Review of Systems All systems: reviewed and no additional remarkable complaints except (as per HPI ) Critical Care Progress Note - Prophylaxis GI Prophylaxis GI: PPI - Prophylaxis DVT Prophylaxis DVT: Lovenox - Nutrition Nutrition: Nutrition Category Date Time Status Heart Healthy Diet [DIET] Diets 10/04/17 Breakfast Active Assessment/Plan - Assessment and Plan (Free Text) Assessment: This is a 73 year old female with a PMHx of COPD on solumedrol and home O2, asthma, bronchitis, DM 2, CAD S/P 8 stents, and hyperlipidemia who presents to the ED with shortness of breath, cough, blood tinged sputum for 2 days. CXR showed RLL opacity, troponin was also noted to be elevated. In ED, patient was given Azactam, Levaquin, Solu-medrol and Duoneb treatment. ICU consulted for COPD exacerbation and elevated troponin. Plan: Neuro: - Monitor for any changes in mental status - Pt is AAOx3 at baseline - Continue home Ropinirole Cardio: - Troponin is trending upwards, currently 11.8 - EKG shows ST at 111; septal infarct of indeterminate age, non-specific STT wave changes - ASA, ACEi, Beta kimmy, Nitrates, statin, therapeutic lovenox, Verapamil - Will follow up with serial trops - Cardiology consulted, and made aware of troponins - Will follow up with cardiology recs - Continue IVF for blood pressure management; no need for pressors at this time Pulm: - CXR (today) shows LLL opacity; lung markings consistent with chronic COPD - Xopenex PRN, Solu-medrol IVP - Merrem, Levaquin, Linezolid as per ID - Will follow up with repeat CXR in am - ABG shows compensated chronic respiratory acidosis - Maintain SpO2 between 88 and 92 - NC, BiPAP PRN GI: - PPX with PTX ID: - Pt afebrile - Antibiotics as per ID - Procalcitonin pending - ID recs appreciated - Will f/u with blood culture, sputum culture, Urine culture and sensitivity Endo: - Maintain euglycemia - Medium ISS, and fingerstick blood sugar ACHS - Levemir 25 units QHS Renal: - Maintain urine output above 0.5 mL/kg/hr - Replete electrolytes as needed MSK: - Continue home allopurinol PPX: GI PPX with PTX; VTE PPX obtained via therapeutic Lovenox dosing Dispo: Continue ICU care, pending further cardiology recommendations Pt seen and case discussed with attending, Dr. Stiles <Jesse Stiles - Last Filed: 10/04/17 11:17> CCU Objective - Vital Signs / Intake & Output Vital Signs (Last 4 hours): Vital Signs Pulse BP 10/04/17 10:22 75 143/62 10/04/17 10:19 75 143/62 10/04/17 10:15 153/75 H 10/04/17 10:13 75 143/62 10/04/17 08:25 113 H - Medications Active Medications: Active Medications Generic Name Dose Route Start Last Admin Trade Name Freq PRN Reason Stop Dose Admin Acetaminophen 650 mg 10/04/17 01:43 Tylenol 325mg Tab PO Q4H PRN Pain, Mild (1-3) Acetaminophen 650 mg 10/04/17 04:50 Tylenol 325mg Tab PO Q4 PRN Fever >100.4 F Allopurinol 300 mg 10/04/17 10:00 10/04/17 10:15 Zyloprim PO 300 mg DAILY [facility] Administration Alprazolam 0.25 mg 10/04/17 04:51 Xanax PO 10/11/17 04:52 TID PRN Anxiety Protocol Aspirin 81 mg 10/04/17 10:00 10/04/17 10:15 Ecotrin PO 81 mg DAILY [facility] Administration Atorvastatin Calcium 20 mg 10/04/17 10:00 10/04/17 10:13 Lipitor PO 20 mg DAILY [facility] Administration Budesonide 0.5 mg 10/04/17 08:00 10/04/17 08:29 Pulmicort Respules IH 0.5 mg [id number] [facility] Administration Clopidogrel Bisulfate 75 mg 10/04/17 10:00 Plavix PO DAILY [facility] Enoxaparin Sodium 70 mg 10/04/17 03:15 10/04/17 05:29 Lovenox SC 70 mg Q12H [facility] Administration Protocol Furosemide 40 mg 10/04/17 10:00 10/04/17 10:15 Lasix PO 40 mg DAILY [facility] Administration Gabapentin 200 mg 10/04/17 10:00 10/04/17 10:14 Neurontin PO 200 mg TID [facility] Administration Protocol Sodium Chloride 1,000 mls @ 100 mls/hr 10/04/17 03:45 10/04/17 07:30 Sodium Chloride 0.9% IV 100 mls/hr .Q10H [facility] Administration Levofloxacin/Dextrose 750 mg in 150 mls @ 100 mls/hr 10/06/17 02:00 Levaquin 750mg IVPB Q48H [facility] Protocol Meropenem 50 mls @ 100 mls/hr 10/04/17 10:36 Merrem Iv 1 Gm Premix IVPB 10/13/17 10:37 Q8 [facility] Protocol Linezolid 600 mg in 300 mls @ 200 mls/hr 10/04/17 22:00 Zyvox 600mg/300ml D5w IVPB 10/13/17 22:01 Q12 [facility] Protocol Insulin Detemir 25 unit 10/04/17 22:00 Levemir SC HS [facility] Insulin Human Lispro 0 units 10/04/17 07:30 10/04/17 08:29 Humalog Med SC 10 units ACHS [facility] Administration Protocol Isosorbide Mononitrate 60 mg 10/05/17 10:00 Imdur PO DAILY [facility] Levalbuterol HCl 0.63 mg 10/04/17 09:27 Xopenex IH [id number] PRN Shortness of Breath Lisinopril 30 mg 10/04/17 10:00 10/04/17 10:19 Zestril PO 30 mg DAILY [facility] Administration Methylprednisolone 40 mg 10/04/17 06:00 10/04/17 08:00 Solu-Medrol IVP 40 mg Q8 [facility] Administration Metoprolol Succinate 50 mg 10/04/17 10:00 10/04/17 10:13 Toprol Xl PO 50 mg DAILY [facility] Administration Pantoprazole Sodium 40 mg 10/04/17 06:00 10/04/17 08:32 Protonix Ec Tab PO 40 mg 0600 [facility] Administration Ropinirole HCl 3 mg 10/04/17 22:00 Requip PO HS [facility] Verapamil HCl 40 mg 10/04/17 10:00 10/04/17 10:22 Calan Tab PO 40 mg TID [facility] Administration - Patient Studies Lab Studies: Lab Studies 10/04/17 10/04/17 10/04/17 Range/Units 11:01 08:40 07:48 WBC 20.9 H D (4.5-11.0) 10^3/ul RBC 4.66 (3.5-6.1) 10^6/uL Hgb 12.7 (12.0-16.0) g/dL Hct 41.4 (36.0-48.0) % MCV 88.8 (80.0-105.0) fl MCH 27.3 (25.0-35.0) pg MCHC 30.7 L (31.0-37.0) g/dl RDW 16.0 H (11.5-14.5) % Plt Count 346 (120.0-450.0) 10^3/uL MPV 10.5 (7.0-11.0) fl Gran % 94.6 H (50.0-68.0) % Lymph % (Auto) 2.1 L (22.0-35.0) % [place] % (Auto) 3.3 (1.0-6.0) % Eos % (Auto) 0.0 L (1.5-5.0) % Baso % (Auto) 0.0 (0.0-3.0) % Gran # 19.73 H (1.4-6.5) Lymph # (Auto) 0.4 L (1.2-3.4) [place] # (Auto) 0.7 H (0.1-0.6) Eos # (Auto) 0.0 (0.0-0.7) Baso # (Auto) 0.01 (0.0-2.0) K/mm3 Neutrophils % (Manual) 96 H (50.0-70.0) % Band Neutrophils % 1 (0-2) % Lymphocytes % (Manual) 2 L (22.0-35.0) % Monocytes % (Manual) 1 (1.0-6.0) % Platelet Evaluation Normal (NORMAL) pCO2 (35-45) mm/Hg pO2 (80-100) mm/Hg HCO3 (21-28) mmol/L ABG pH (7.35-7.45) ABG Total CO2 (22-28) mmol.L ABG O2 Saturation (95-98) % ABG O2 Content (15-23) ML/dl ABG Base Excess (-2.0-3.0) mmol/L ABG Hemoglobin (11.7-17.4) g/dL ABG Carboxyhemoglobin (0.5-1.5) % POC ABG HHb (Measured) (0-5) % ABG Methemoglobin (0.0-3.0) % ABG O2 Capacity (16-24) mL/dl Hgb O2 Saturation (95.0-98.0) % FiO2 % Sodium (132-148) mmol/L Potassium (3.6-5.0) mmol/L Chloride (98-107) mmol/L Carbon Dioxide (21-33) mmol/L Anion Gap (10-20) BUN (7-21) mg/dL Creatinine (0.7-1.2) mg/dl Est GFR ( Amer) Est GFR (Non-Af Amer) POC Glucose (mg/dL) 385 H 366 H (65-110) mg/dL Random Glucose (70-110) mg/dL Calcium (8.4-10.5) mg/dL Magnesium (1.7-2.2) mg/dL Total Bilirubin (0.2-1.3) mg/dL AST (14-36) U/L ALT (7-56) U/L Alkaline Phosphatase (38-126) U/L Lactate Dehydrogenase (333-699) U/L Total Creatine Kinase (35-230) U/L CK-MB (CK-2) (0.0-3.6) ng/mL CK-MB (CK-2) % (2.5-3.0) % Troponin I ng/mL Total Protein (5.8-8.3) g/dL Albumin (3.0-4.8) g/dL Globulin gm/dL Albumin/Globulin Ratio (1.1-1.8) 10/04/17 10/04/17 10/04/17 Range/Units 07:33 07:15 05:03 WBC (4.5-11.0) 10^3/ul RBC (3.5-6.1) 10^6/uL Hgb (12.0-16.0) g/dL Hct (36.0-48.0) % MCV (80.0-105.0) fl MCH (25.0-35.0) pg MCHC (31.0-37.0) g/dl RDW (11.5-14.5) % Plt Count (120.0-450.0) 10^3/uL MPV (7.0-11.0) fl Gran % (50.0-68.0) % Lymph % (Auto) (22.0-35.0) % [place] % (Auto) (1.0-6.0) % Eos % (Auto) (1.5-5.0) % Baso % (Auto) (0.0-3.0) % Gran # (1.4-6.5) Lymph # (Auto) (1.2-3.4) [place] # (Auto) (0.1-0.6) Eos # (Auto) (0.0-0.7) Baso # (Auto) (0.0-2.0) K/mm3 Neutrophils % (Manual) (50.0-70.0) % Band Neutrophils % (0-2) % Lymphocytes % (Manual) (22.0-35.0) % Monocytes % (Manual) (1.0-6.0) % Platelet Evaluation (NORMAL) pCO2 68 H (35-45) mm/Hg pO2 62.0 L (80-100) mm/Hg HCO3 34.2 H (21-28) mmol/L ABG pH 7.31 L (7.35-7.45) ABG Total CO2 36.3 H (22-28) mmol.L ABG O2 Saturation 93.2 L (95-98) % ABG O2 Content 15.4 (15-23) ML/dl ABG Base Excess 6.0 H (-2.0-3.0) mmol/L ABG Hemoglobin 12.0 (11.7-17.4) g/dL ABG Carboxyhemoglobin 1.7 H (0.5-1.5) % POC ABG HHb (Measured) 6.6 H (0-5) % ABG Methemoglobin 0.6 (0.0-3.0) % ABG O2 Capacity 16.5 (16-24) mL/dl Hgb O2 Saturation 91.1 L (95.0-98.0) % FiO2 28.0 % Sodium 135 (132-148) mmol/L Potassium 4.8 (3.6-5.0) mmol/L Chloride 93 L (98-107) mmol/L Carbon Dioxide 31 (21-33) mmol/L Anion Gap 15 (10-20) BUN 31 H (7-21) mg/dL Creatinine 1.1 (0.7-1.2) mg/dl Est GFR ( Amer) 59 Est GFR (Non-Af Amer) 49 POC Glucose (mg/dL) 363 H (65-110) mg/dL Random Glucose 475 H* (70-110) mg/dL Calcium 8.7 (8.4-10.5) mg/dL Magnesium 1.6 L (1.7-2.2) mg/dL Total Bilirubin 0.3 (0.2-1.3) mg/dL AST 180 H D (14-36) U/L ALT 108 H (7-56) U/L Alkaline Phosphatase 93 (38-126) U/L Lactate Dehydrogenase 834 H (333-699) U/L Total Creatine Kinase 305 H (35-230) U/L CK-MB (CK-2) 47.9 H (0.0-3.6) ng/mL CK-MB (CK-2) % 15.7 H (2.5-3.0) % Troponin I 11.80 H* D ng/mL Total Protein 6.5 (5.8-8.3) g/dL Albumin 3.3 (3.0-4.8) g/dL Globulin 3.2 gm/dL Albumin/Globulin Ratio 1.0 L (1.1-1.8) 10/04/17 10/04/17 Range/Units 04:21 03:51 WBC (4.5-11.0) 10^3/ul RBC (3.5-6.1) 10^6/uL Hgb (12.0-16.0) g/dL Hct (36.0-48.0) % MCV (80.0-105.0) fl MCH (25.0-35.0) pg MCHC (31.0-37.0) g/dl RDW (11.5-14.5) % Plt Count (120.0-450.0) 10^3/uL MPV (7.0-11.0) fl Gran % (50.0-68.0) % Lymph % (Auto) (22.0-35.0) % [place] % (Auto) (1.0-6.0) % Eos % (Auto) (1.5-5.0) % Baso % (Auto) (0.0-3.0) % Gran # (1.4-6.5) Lymph # (Auto) (1.2-3.4) [place] # (Auto) (0.1-0.6) Eos # (Auto) (0.0-0.7) Baso # (Auto) (0.0-2.0) K/mm3 Neutrophils % (Manual) (50.0-70.0) % Band Neutrophils % (0-2) % Lymphocytes % (Manual) (22.0-35.0) % Monocytes % (Manual) (1.0-6.0) % Platelet Evaluation (NORMAL) pCO2 (35-45) mm/Hg pO2 (80-100) mm/Hg HCO3 (21-28) mmol/L ABG pH (7.35-7.45) ABG Total CO2 (22-28) mmol.L ABG O2 Saturation (95-98) % ABG O2 Content (15-23) ML/dl ABG Base Excess (-2.0-3.0) mmol/L ABG Hemoglobin (11.7-17.4) g/dL ABG Carboxyhemoglobin (0.5-1.5) % POC ABG HHb (Measured) (0-5) % ABG Methemoglobin (0.0-3.0) % ABG O2 Capacity (16-24) mL/dl Hgb O2 Saturation (95.0-98.0) % FiO2 % Sodium (132-148) mmol/L Potassium (3.6-5.0) mmol/L Chloride (98-107) mmol/L Carbon Dioxide (21-33) mmol/L Anion Gap (10-20) BUN (7-21) mg/dL Creatinine (0.7-1.2) mg/dl Est GFR ( Amer) Est GFR (Non-Af Amer) POC Glucose (mg/dL) 467 H* 487 H* (65-110) mg/dL Random Glucose (70-110) mg/dL Calcium (8.4-10.5) mg/dL Magnesium (1.7-2.2) mg/dL Total Bilirubin (0.2-1.3) mg/dL AST (14-36) U/L ALT (7-56) U/L Alkaline Phosphatase (38-126) U/L Lactate Dehydrogenase (333-699) U/L Total Creatine Kinase (35-230) U/L CK-MB (CK-2) (0.0-3.6) ng/mL CK-MB (CK-2) % (2.5-3.0) % Troponin I ng/mL Total Protein (5.8-8.3) g/dL Albumin (3.0-4.8) g/dL Globulin gm/dL Albumin/Globulin Ratio (1.1-1.8) Laboratory Results - last 24 hr 10/04/17 10/04/17 10/04/17 03:51 04:21 05:03 WBC RBC Hgb Hct MCV MCH MCHC RDW Plt Count MPV Gran % Lymph % (Auto) [place] % (Auto) Eos % (Auto) Baso % (Auto) Gran # Lymph # (Auto) [place] # (Auto) Eos # (Auto) Baso # (Auto) Neutrophils % (Manual) Band Neutrophils % Lymphocytes % (Manual) Monocytes % (Manual) Platelet Evaluation pCO2 pO2 HCO3 ABG pH ABG Total CO2 ABG O2 Saturation ABG O2 Content ABG Base Excess ABG Hemoglobin ABG Carboxyhemoglobin POC ABG HHb (Measured) ABG Methemoglobin ABG O2 Capacity Hgb O2 Saturation FiO2 Sodium Potassium Chloride Carbon Dioxide Anion Gap BUN Creatinine Est GFR ( Amer) Est GFR (Non-Af Amer) POC Glucose (mg/dL) 487 H* 467 H* 363 H Random Glucose Calcium Magnesium Total Bilirubin AST ALT Alkaline Phosphatase Lactate Dehydrogenase Total Creatine Kinase CK-MB (CK-2) CK-MB (CK-2) % Troponin I Total Protein Albumin Globulin Albumin/Globulin Ratio 10/04/17 10/04/17 10/04/17 07:15 07:33 07:48 WBC RBC Hgb Hct MCV MCH MCHC RDW Plt Count MPV Gran % Lymph % (Auto) [place] % (Auto) Eos % (Auto) Baso % (Auto) Gran # Lymph # (Auto) [place] # (Auto) Eos # (Auto) Baso # (Auto) Neutrophils % (Manual) Band Neutrophils % Lymphocytes % (Manual) Monocytes % (Manual) Platelet Evaluation pCO2 68 H pO2 62.0 L HCO3 34.2 H ABG pH 7.31 L ABG Total CO2 36.3 H ABG O2 Saturation 93.2 L ABG O2 Content 15.4 ABG Base Excess 6.0 H ABG Hemoglobin 12.0 ABG Carboxyhemoglobin 1.7 H POC ABG HHb (Measured) 6.6 H ABG Methemoglobin 0.6 ABG O2 Capacity 16.5 Hgb O2 Saturation 91.1 L FiO2 28.0 Sodium 135 Potassium 4.8 Chloride 93 L Carbon Dioxide 31 Anion Gap 15 BUN 31 H Creatinine 1.1 Est GFR ( Amer) 59 Est GFR (Non-Af Amer) 49 POC Glucose (mg/dL) 366 H Random Glucose 475 H* Calcium 8.7 Magnesium 1.6 L Total Bilirubin 0.3 AST 180 H D ALT 108 H Alkaline Phosphatase 93 Lactate Dehydrogenase 834 H Total Creatine Kinase 305 H CK-MB (CK-2) 47.9 H CK-MB (CK-2) % 15.7 H Troponin I 11.80 H* D Total Protein 6.5 Albumin 3.3 Globulin 3.2 Albumin/Globulin Ratio 1.0 L 10/04/17 10/04/17 08:40 11:01 WBC 20.9 H D RBC 4.66 Hgb 12.7 Hct 41.4 MCV 88.8 MCH 27.3 MCHC 30.7 L RDW 16.0 H Plt Count 346 MPV 10.5 Gran % 94.6 H Lymph % (Auto) 2.1 L [place] % (Auto) 3.3 Eos % (Auto) 0.0 L Baso % (Auto) 0.0 Gran # 19.73 H Lymph # (Auto) 0.4 L [place] # (Auto) 0.7 H Eos # (Auto) 0.0 Baso # (Auto) 0.01 Neutrophils % (Manual) 96 H Band Neutrophils % 1 Lymphocytes % (Manual) 2 L Monocytes % (Manual) 1 Platelet Evaluation Normal pCO2 pO2 HCO3 ABG pH ABG Total CO2 ABG O2 Saturation ABG O2 Content ABG Base Excess ABG Hemoglobin ABG Carboxyhemoglobin POC ABG HHb (Measured) ABG Methemoglobin ABG O2 Capacity Hgb O2 Saturation FiO2 Sodium Potassium Chloride Carbon Dioxide Anion Gap BUN Creatinine Est GFR ( Amer) Est GFR (Non-Af Amer) POC Glucose (mg/dL) 385 H Random Glucose Calcium Magnesium Total Bilirubin AST ALT Alkaline Phosphatase Lactate Dehydrogenase Total Creatine Kinase CK-MB (CK-2) CK-MB (CK-2) % Troponin I Total Protein Albumin Globulin Albumin/Globulin Ratio EKG/Cardiology Studies: Cardiology / EKG Studies 10/04/17 07:00 ELECTROCARDIOGRAM Q6H Comment: Reason For Exam: elevated trops; ALLEGRA 10/04/17 13:00 ELECTROCARDIOGRAM Q6H Comment: Reason For Exam: elevated trops; ALLEGRA 10/05/17 07:00 ELECTROCARDIOGRAM Routine Comment: Reason For Exam: CAD PRE OP:: N Does Patient Have a Pacemaker?: No Critical Care Progress Note - Nutrition Nutrition: Nutrition Category Date Time Status Heart Healthy Diet [DIET] Diets 10/04/17 Breakfast Active Assessment/Plan - Assessment and Plan (Free Text) Plan: Patient seen and examined on rounds with resident, agree with note with following additions/exceptions: Patient is 72yo female with PMHx COPD on solumedrol and home O2, asthma, bronchitis, DM 2, CAD S/P 8 stents, and hyperlipidemia, presented with NSTEMI and COPD exacerbation. Currently afebrile, BP stable, comfortable on 4LNC, OFF BIPAP, ABG with chronic resp acidosis, patient is awake, alert, in NAD, doing well clinically. Patients labs and imaging noted, rising troponin, cardiology aware, on therapeutic lovenox, ASA, Statin, BB. NSTEMI COPD exacerbation PNA DM CAD HLD Recommend: - supp o2 as needed, goal sat 90%, duonebs PRN - solumedrol 40mg IV q8hr - Pulmicort BID - Azactam, Levaquin - check ruine Lg, Strep, Procal, follow up cultures - ASA, Statin, BB, Lovenox - ECHO - trend troponin - follow up cardiology - check HgbA1C, TSH - FS control - monitor electrolytes - BP control - GI ppx - DVT ppx - Monitor in CCU critical care time 30 minutes
[2017-10-04] MEDS ORDERED: Metoprolol Succinate 50 mg XL Tab PO SCH (10:00)
[2017-10-04 10:13] LABS: CK MB% 15.7 % (2.5-3.0); CK-MB 47.9 ng/mL (0.0-3.6); TROPONIN I 11.8 ng/mL
[2017-10-04 10:18] LABS: BAND 1 % (0-2); LYMPHOCYTE 2 % (22.0-35.0); MONOCYTE 1 % (1.0-6.0); NEUTROPHIL 96 % (50.0-70.0); PLATELET ESTIMATE NORMAL (NORMAL)
[2017-10-04] MEDS ORDERED: Aztreonam 1 Gm in NS 100mL 100 ML IVPB SCH (11:00)
[2017-10-04] MEDS: Meropenem IV 1 gm in NS 50 ML IVPB SCH ×3 (11:51→21:30)
[2017-10-04 12:48] VITALS: BMI 24.3
[2017-10-04] MEDS ORDERED: Lidocaine 2% Inj (20ml) ONE (12:57)
[2017-10-04] MEDS ORDERED: Phenylephrine 10 mg/ml Inj ONE (12:58)
[2017-10-04] MEDS ORDERED: Nitroglycerin 50mg in D5W 0 MG/0 ML BOTTLE IV ONE (12:58)
[2017-10-04] MEDS ORDERED: Iohexol 350mgl/ml 50 ML ONE (12:58)
[2017-10-04] MEDS ORDERED: Iodixanol 320 MG/ML 100 ML BOTTLE IV ONE (12:58)
[2017-10-04] MEDS ORDERED: Iodixanol 320 MG/ML 200 ML BOTTLE IV ONE (12:58)
--- NOTE | 2017-10-04 13:01 | CARD ---
APPROVED REPORT EKG Measurement Heart [id number] <Conclusion> Sinus tachycardia ASMI, age unknown NSSTW changes Artifact present
--- NOTE | 2017-10-04 13:10 | CARD ---
APPROVED REPORT EKG Measurement Heart [id number] [place] [id number] <Conclusion> Sinus tachycardia Left axis deviation/ LAHB Anteroseptal infarct, age undetermined STTW changes c/w ischemia Prolonged QTc
[2017-10-04] MEDS ORDERED: Famotidine 20mg/50ml 20 MG/50 ML BAG IVPB ONE (13:19)
[2017-10-04] MEDS ORDERED: DiphenhydrAMINE 50 mg/ml Inj ONE (13:19)
[2017-10-04] MEDS ORDERED: Midazolam 2 MG/2 ML VIAL ONE (13:27)
--- NOTE | 2017-10-04 14:32 | CPOSTOP ---
DATE: 10/04/2017 CARDIOVASCULAR LAB PROCEDURE POST PROCEDURE NOTE DICTATING PHYSICIAN: Trae Henry MD LOAD BLOCKER: Uzair Hensley. TYPE OF ANESTHESIA: Moderate conscious sedation, total 1 mg of Versed given. PRE-PROCEDURE DIAGNOSES: Unstable angina, acute coronary syndrome, non-ST segment myocardial infarction with a troponin 12. PROCEDURE PERFORMED: Left heart catheterization. FINDINGS: Patent stent in LAD, patent stent in ramus, patent stent in RCA. A small vessel disease in diagonal 2, preserved LV function, no gradient across the aortic valve. FINAL DIAGNOSIS: Small vessel disease. POST PROCEDURE CONDITION: The patient's condition is stable. VASCULAR ACCESS SITE: Right femoral groin. CLOSURE DEVICE: Mynx applied. TOTAL RADIATION DOSE: 4311.51 milligray unit. FLUORO TIME: 1.8 minute. Trae Henry MD
--- NOTE | 2017-10-04 16:31 | CARD ---
APPROVED REPORT Procedure(s) performed: Left Heart Catheterization HISTORY The patient is a 72 year-old female with a history of : previous LA (> 7 days), previous CHF, diabetes mellitus with insulin treatment , chronic lung disease, previous diagnostic cath, tobacco history() : The patient is a current smoker , previous PCI (The PCI date was 12/16/2015), hypertension , dyslipidemia , Hx of CAD, PAD, S/p Multiple stents, COPD on Home O2 admitted with acute exacerbatiob of COPD,and ATKINSON, first troponin 0.8, subsequent 11.6 ( NSTEMI).. INDICATION The indication(s) include : unstable angina , non-STEMI . CASE TECHNIQUE The patient was brought emergently to the Cardiac Catheterization Laboratory in a fasting state and was prepped and draped in a sterile manner. The right femoral groin was infiltrated with 2% Lidocaine subcutaneous anesthesia. A 6 Fr x 11 cm Carlota sheath was inserted into the right femoral artery without difficulty. Coronary angiography was performed using coronary diagnostic catheters. The left coronary system was accessed and visualized with a Diagnostic , 6F JL4 CATH DXT 100 CM catheter. The right coronary system was accessed and visualized with a Diagnostic ,6F JR 4 CATH DXT 100 CM catheter. The left ventricle was accessed and visualized with a 6 Fr Pigtail catheter. Left ventricular/Aortic Valve gradient assessed on pullback. Left ventriculogram was performed in AGUIRRE projection. Closure device was deployed with a 6 Fr / 7 Fr MynxGrip without any complications. The patient tolerated the procedure well and there were no complications associated with the procedure. Vessel Analysis The patient's coronary anatomy is right dominant. The left main coronary artery is a large size vessel with diffuse calcification noted throughout this vessel and without significant stenosis. The left main trifurcates to the left anterior descending, circumflex, and ramus. The left anterior descending artery is a large size vessel with diffuse calcification noted throughout this vessel and without significant stenosis. patent stent in proximal LAD The first diagonal branch is a small size vessel with diffuse calcification noted throughout this vessel and with significant stenosis. There is a 70-80% stenosis in the proximal segment. multiple stenoses, small calbre vessel less than 2 mmm not suitable for PCI The circumflex artery is a medium size vessel with diffuse calcification noted throughout this vessel and without significant stenosis. There is a 40% stenosis in the mid segment. The first obtuse marginal branch is a small size vessel with diffuse calcification noted throughout this vessel and without significant stenosis. The second obtuse marginal branch is a large size vessel with diffuse calcification noted throughout this vessel and without significant stenosis. The right coronary artery is a large size vessel with diffuse calcification noted throughout this vessel and without significant stenosis. patent stent noted in proximal and distal RCA The right posterior descending artery is a medium size vessel with diffuse calcification noted throughout this vessel and without significant stenosis. The right posterolateral branch is a small size vessel with diffuse calcification noted throughout this vessel and without significant stenosis. Left Ventricle The left ventricle is borderline in size with mildly decreased contractility. Ischemic cardiomyopathy. The left ventricular ejection fraction is estimated to be 45%. The left ventricular end diastolic pressure is 20 mmHg. Apical HK, and anterolateral There was no gradient across the aortic valve upon pullback. Conclusion Non Obstructive CAD, Small Vessel CAD Mildly decreased LV Fx. EF-45%, EDP-20 mmof Hg Patent previously placed Stents in LAD, Cx , and RCA Possibly this NSTEMI is secodary to Hemodynamic instability and small vessel CAD. Recommendations Cardiac Rehabilitation Referral Aggressive Medical TherapyCardiac Risk Reduction Program Echo to assess LV Fx and valvular Fx CC; Drs. Bowers/ Van
--- NOTE | 2017-10-04 18:16 | CARD ---
APPROVED REPORT EXAM: Two-dimensional and M-mode echocardiogram with Doppler and color Doppler. INDICATION COPD NSTEMI 2D DIMENSIONS Left Atrium (2D)2.6 (1.6-4.0cm)IVSd1.2 (0.7-1.1cm) LVDd4.2 (3.9-5.9cm)PWd1.3 (0.7-1.1cm) M-Mode DIMENSIONS Aortic Root2.70 (2.2-3.7cm)Aortic Cusp Exc.1.30 (1.5-2.0cm) Aortic Valve AoV Peak Ywpxnzga731.0cm/Vasyl Peak GR.10mmHg Mitral Valve MV E Gnegaesw66.8cm/sMV A Ghiyggib145.0cm/sE/A ratio0.8 TDI Lateral E' Peak V5.46cm/sMedial E' Peak V4.39cm/sE/Lateral E'16.4 E/Medial E'20.5 Pulmonary Valve PV Peak Lbjfoadg74.6cm/sPV Peak Grad.2mmHg Tricuspid Valve TR Peak Tkgcbrhq807bs/sRAP [id number] Peak Gr.32mmHg [id number] LEFT VENTRICLE The left ventricle is normal size. There is mild concentric left ventricular hypertrophy. The systolic function is mildly to moderately impaired.EF-35% Regional wall motion abnormalities noted. There is moderate hypokinesis in the apical anterior wall. Transmitral Doppler flow pattern is Grade III-reversible restrictive diastolic dysfunction. No left ventricle thrombus noted on this study. There is no ventricular septal defect visualized. There is no left ventricular aneurysm. There is no mass noted in the left ventricle. RIGHT VENTRICLE The right ventricle is mildly dilated. There is normal right ventricular wall thickness. Systolic function is mildly reduced. ATRIA The left atrium size is normal. The right atrium size is normal. The interatrial septum is intact with no evidence for an atrial septal defect. AORTIC VALVE The aortic valve is thickened but opens well. The aortic valve is mildly to moderately sclerotic. There is trace aortic regurgitation. Aortic Sclerosis Vs Mild There is no aortic valvular vegetation. MITRAL VALVE The mitral valve is thickened but opens well. Mitral regurgitation is trace. There is no mitral valve stenosis. There is no evidence of mitral valve prolapse. TRICUSPID VALVE The tricuspid valve leaflets are thickened , but open well. There is mild to moderate tricuspid regurgitation.RVSP_42 mmof hg. There is no tricuspid valve stenosis. There is no tricuspid valve prolapse or vegetation. PULMONIC VALVE The pulmonic valve is mildly thickened. There is trace pulmonic valvular regurgitation. There is no pulmonic valvular stenosis. GREAT VESSELS The aortic root is normal in size. The ascending aorta is normal in size. The pulmonary artery is normal. The IVC is normal in size and collapses >50% with inspiration. PERICARDIAL EFFUSION There is no pleural effusion. There is a trace pericardial effusion. <Conclusion> The left ventricle is normal size. There is mild concentric left ventricular hypertrophy. The systolic function is mildly to moderately impaired.EF-35% Regional wall motion abnormalities noted. There is moderate hypokinesis in the apical anterior wall. The right ventricle is mildly dilated. Systolic function is mildly reduced. Aortic Sclerosis Vs Mild Mitral regurgitation is trace. There is mild to moderate tricuspid regurgitation.RVSP_42 mmof hg. The IVC is normal in size and collapses >50% with inspiration. There is a trace pericardial effusion. No Thrombus or Vegetation noted.
--- NOTE | 2017-10-04 20:59 | CON ---
DATE: 10/04/2017 LOCATION: The patient is in the ICU 129, bed 5. CHIEF COMPLAINT: Shortness of breath, which is worse than her usual. HISTORY OF PRESENT ILLNESS: This is a 72-year-old female who has end-stage chronic obstructive lung disease; interstitial lung disease; pulmonary fibrosis, chronic respiratory failure, on home O2 therapy; diabetes mellitus; hypertension; coronary artery disease, cardiac stent who was recently discharged and now returns with worsening shortness of breath x1 day duration, low-grade fevers. REVIEW OF SYSTEMS: A 12-point review of systems is performed and no abdominal pain or diarrhea, no constipation, no bright red blood per rectum, no melena, no headaches or blurred vision. PAST MEDICAL HISTORY: Significant for end-stage chronic obstructive lung disease, interstitial lung disease and pulmonary fibrosis, chronic respiratory failure on home O2 therapy, coronary artery disease, hypertension, diabetes, hyperlipidemia and umbilical hernia, cataract, gout, anxiety. PAST SURGICAL HISTORY: Significant for hysterectomy, cardiac catheterization with cardiac stents, coronary stents. ALLERGIES: THE PATIENT IS ALLERGIC TO PENICILLIN, QUESTIONABLE RASH. THE PATIENT IS ALSO ALLERGIC TO DAYPRO, IODINE, FISH, OXAPROZIN AND ZOLPIDEM. PHYSICAL EXAMINATION GENERAL: The patient is in bed, appearing chronically ill, weak. VITAL SIGNS: Temperature of 99, heart rate of 113, respiratory rate of 24, blood pressure of 140/60, was down to 89/55 with O2 saturation noted. BMI of 25. HEENT: Unremarkable. NECK: Supple. LUNGS: Have decreased breath sounds. HEART: Normal S1 and S2. ABDOMEN: Soft, nontender. No rebound, no guarding, no masses. LABORATORY DATA: Reveals a white count of 26,900 and last white count from last admission 09/26/2017 was 11,900; hemoglobin of 14; platelets of 539; 96% neutrophils. BUN of 31, creatinine of 1.1. Troponin is 11.8, LDH is elevated. Microbiology is pending. The patient did have Pseudomonas in the last admission in the sputum culture. Dr. Becker's consultation is appreciated. Case discussed with Dr. Becker at length. Chest x-ray was read by Dr. Khurram Caal, development of new alveolitis. The patient's creatinine is 1.1 and the last creatinine was 1.3. The patient's medications at home were reviewed. The patient is on prednisone at home. The patient's EKG is reviewed, sinus tachycardia, the heart rate of 111, NJ interval of 124, QTc of 410, septal infarct, abnormal EKG, biatrial enlargement, pulmonary disease pattern. ASSESSMENT AND PLAN: A 72-year-old female with end-stage chronic obstructive pulmonary disease, interstitial lung disease, pulmonary fibrosis, chronic respiratory failure on home O2 therapy, diabetes, hypertension, coronary artery disease, hyperlipidemia admitted now with severe sepsis with healthcare-associated pneumonia which is new, gram-positive versus gram-negative in face of an elevated troponins, nonspecific EKG findings consistent with a non-ST elevation myocardial infarction. We will treat the patient with Zyvox and meropenem. The patient is started on Solu-Medrol and Levaquin. Pending yuan culture, blood cultures, urine cultures, sputum cultures, cardiology input and procalcitonin. Long-term prognosis is quite poor. The patient can discuss with Dr. Becker, the patient's daughter who was in the ICU this morning at length. This patient who has end-stage pulmonary fibrosis. We will follow closely with you. Thaddeus Ely MD
[2017-10-04 21:12] LABS: BLOOD UREA NITROGEN 32 mg/dL (7-21); CALCIUM 8.6 mg/dL (8.4-10.5); GFR AFRICAN-AMERICAN > 60; GFR NON-AFRICAN AMERICAN 54
--- NOTE | 2017-10-04 21:20 | CON ---
DATE: 10/04/2017 CONSULT SERVICE: Cardiology. REVIEWING PHYSICIAN: Dr. Trae Henry. REASON FOR CONSULTATION: Cardiac evaluation, admitted with shortness of breath, possible acute insufficient COPD with blood tinged sputum, history of coronary artery disease, status post multiple stents. BRIEF CLINICAL HISTORY: This is a [id number]-female with past medical history significant for COPD; pulmonary fibrosis, on home oxygen; pulmonary hypertension; diabetes; hypertension; hyperlipidemia; CAD, status post multiple stents; peptic ulcer disease, came to the Emergency Room with complaint of worsening shortness of breath. She took a couple of nebulizers, but did not improve. Patient also complained of bringing phlegm with blood tinged sputum. Denies chest pain, shortness breath, or any palpitation. Was admitted here three weeks ago and discharged after three days, staying in the hospital. PAST HISTORY: Significant for diabetes, hypertension, hyperlipidemia, history of multiple PTCA's, [place], history of COPD, history of home oxygen. PREVIOUS CARDIAC WORKUP: The patient's stress test on 06/16/2012 does show anteroseptal reversible ischemia, following that the patient had cardiac catheterization that revealed nonobstructive coronary artery disease. Medical treatment was recommended. The patient had echocardiography done on 08/22/2016 that showed ejection fraction of 55%, normal LV, trace aortic regurgitation, mild aortic stenosis, mild mitral regurgitation, jaqf-or-xgyqhxlq tricuspid regurgitation, RV systolic pressure of 51. As mentioned, the patient had a cardiac catheterization after having abnormal stress test that revealed left main essentially free of significant, trifurcate LAD circumflex and ramus intermedius. LAD with a patent stent noted. Circumflex, medium caliber vessel, obtuse marginal 1 small caliber vessels. Essentially, no significant flow limiting disease. Ramus intermedius large caliber vessel, 54% stenosis noted in the ostium. Right coronary artery is a medium-sized vessel, diffuse calcification noted throughout the vessel, but no flow obstructive stenosis noted. Patent stent noted in the [id number] LAD. Ejection fraction is 50-60%, right dominant system, EDP was within a range of 18 to 20. No gradient across aortic valve noted on cath. Patient also had a right heart catheterization done at the time that showed RA 7 to 8 mmHg, RV 35/7, PA 35/15, mean PA 22. Pulmonary capillary wedge pressure 8 to 10 mmHg. Pulmonary vascular resistance 3.5 Harris unit, cardiac output 3.5, cardiac index 2.1. Patient also has bilateral carotid angiogram that revealed right carotid artery essentially free of significant disease, left had 30% stenosis. As the patient had carotid Duplex that showed 60 to 79% left ICA stenosis, right 20 to 39% stenosis, but on cath only less than 30% stenosis, left ICA and right ICA essentially showed significant disease. Medical treatment was recommended. ALLERGIES: ALLERGY TO IODINE, FISH, , PENICILLIN, OXAPROZIN, AND AMBIEN. CURRENT MEDICATIONS: Patient is taking at home Requip, prednisone, guaifenesin, hand held nebulizer, lisinopril, isosorbide nitrate, insulin, gabapentin, Lasix, Bumex, allopurinol, albuterol. REVIEW OF SYSTEMS: As per HPI. PHYSICAL EXAMINATION: VITAL SIGNS: Height of the patient is 5 feet 5 inches, weight of the patient is 150 pounds, body mass index 20 kg/m2. Temperature afebrile, heart rate 113, blood pressure 86/50. HEENT: PERRLA, extraocular muscles intact. NECK: Supple. No carotid bruits or thyromegaly. CHEST: Clear to auscultation. HEART: S1, S2 regular. ABDOMEN: Soft. EXTREMITIES: Clubbing and cyanosis negative. DATA: EKG shows sinus tachycardia, rate of 101, biatrial enlargement, poor R-R progression, nonspecific intraventricular conduction delay. Pulmonary disease pattern EKG. Blood work up are as follows: WBC 20.9, hemoglobin 12.5, hematocrit of 41.7, platelet count 347. Chemistry shows sodium 135, potassium 4.8, chloride 93, CO2 34, anion gap of 15, BUN 31, creatinine of 1.1. Random glucose 366, magnesium 1.6. Troponin 0.06. IMPRESSION: Acute insufficient chronic obstructive pulmonary disease, history of coronary artery disease, history of cardiac catheterization in 2016, patent stent, borderline troponin positive, no acute ST-T changes noted. No complaint of chest pain. RECOMMENDATIONS: We will treat this unstable angina with Lovenox. Resume the baseline medication. Follow serial CPK, troponin. Most likely, this bump in troponin is secondary to hemodynamic instability, underlying coronary artery disease. We will follow the trend. If the troponin is trending down and asymptomatic, we will treat medically. We will follow up with you. Also, get the echo to assess LV function, lipid profile, TSH, hemoglobin A1c, and serial troponin. Thank you, Dr. Sher, for providing us the opportunity in taking care of the patient. Trae Henry MD
[2017-10-04] MEDS: Insulin Detemir 100 units/ml Vial (Levemir) SC SCH (21:31)
[2017-10-04] MEDS: Linezolid 600 mg in D5W 300 ml 600 MG/300 ML BAG IVPB SCH (21:31)
[2017-10-04] MEDS ORDERED: Benzocaine/Menthol (Cepacol) Lozenge MT PRN (23:17)
[2017-10-05] MEDS: Enoxaparin 80 mg Syringe SC SCH (03:30)
--- NOTE | 2017-10-05 04:04 | HP ---
HISTORY OF PRESENT ILLNESS: The patient is 72 years old, came to emergency room because of an increasing shortness of breath, could not catch her breath and was having air hunger, also having persistent cough with yellow to white phlegm. No history of hemoptysis at this time. She did have hemoptysis last visit. Denies any fever or chills. No history of nausea or vomiting. Complained of generalized weakness and persistent cough. PAST MEDICAL HISTORY: Significant for; 1. Terminal COPD on home oxygen and nebulizer treatment. 2. History of ventral hernia. 3. Coronary artery disease, status post angioplasty. 4. Restless leg syndrome. 5. Hyperlipidemia. 6. Insulin-dependent diabetes. ALLERGIES: SHE IS ALLERGIC TO FISH, IODINE, OXAPROZIN, PENICILLIN AND ZOLPIDEM. MEDICATIONS AT HOME: As per MAY. SOCIAL HISTORY: She used to be a heavy smoker up until 3 years. Denies alcohol use. REVIEW OF SYSTEMS: Significant for cough, congestion and shortness of breath. She is at rest. PHYSICAL EXAMINATION: GENERAL: She is awake, alert, oriented, communicative. VITAL SIGNS: She is afebrile, pulse 92, respirations 27, blood pressure 115/62. LUNGS: Bilateral diffusely decreased breath sound. HEART: S1 and S2 audible. ABDOMEN: Soft. Nontender. No rebound. No guarding. NEUROLOGICAL: Patient is awake, alert, communicative. EXTREMITIES: Bilateral leg, no edema LABORATORY EXAM: WBC is 20.9, hemoglobin 12.7, hematocrit 41, platelet of 346. Chemistry: Sodium 135, potassium 4.8, chloride 93, CO2 of 31, BUN 31, creatinine 1.1. Blood sugar of 385. LDH is 834. CPK is 305. Troponin is 11.8. ASSESSMENT: 1. Chronic obstructive pulmonary disease exacerbation. 2. Non-ST elevation myocardial infarction, status post cardiac catheterization, was found to have small vessel disease. 3. Asthmatic bronchitis. 4. Bronchospasm. 5. Restless leg syndrome. 6. Hypertension. 7. Insulin-dependent diabetes. PLAN: Currently patient is on verapamil. She is on aspirin 81 daily. She is on isosorbide 60 mg daily. We will continue her on Lasix, Levaquin, atorvastatin. She is on Lovenox 70 every 12 hours. She is on meropenem and gabapentin. She is also on Plavix and Protonix and continue . She was started on methylprednisolone 40 mg every 8 hours, we will continue that. She is on Zyvox 600 three times a day. We will reevaluate this patient in a.m. Ten Sher MD
[2017-10-05] MEDS: MethylPREDNISolone 40 mg Vial IVP SCH (05:34)
[2017-10-05] MEDS: Pantoprazole 40 mg EC Tab PO SCH (05:35)
[2017-10-05 06:28] LABS: ARTERIAL BLOOD GAS O2 CAPACITY 16.6 mL/dl (16-24); ARTERIAL BLOOD GAS O2 CONTENT 10.5 ML/dl (15-23); ARTERIAL BLOOD GAS O2 SAT 63.2 % (95-98); ARTERIAL BLOOD GAS PH 7.35 (7.35-7.45); ARTERIAL BLOOD GAS TCO2 43.7 mmol.L (22-28)
[2017-10-05 06:34] LABS: ARTERIAL BLOOD GAS HCO3 41.4 mmol/L (21-28); ARTERIAL BLOOD GAS PCO2 75 mm/Hg (35-45)
[2017-10-05 06:40] LABS: BASO # 0.01 K/mm3 (0.0-2.0); GRAN # 21.66 (1.4-6.5); GRAN % 92.4 % (50.0-68.0); HEMOGLOBIN 12.4 g/dL (12.0-16.0); LYMPH # 0.8 (1.2-3.4); LYMPH % 3.5 % (22.0-35.0); MEAN CELL VOLUME 87.5 fl (80.0-105.0); MEAN CORPUSCULAR HEMOGLOBIN 26.7 pg (25.0-35.0); MEAN CORPUSCULAR HGB CONC 30.5 g/dl (31.0-37.0); MEAN PLATELET VOLUME 10.5 fl (7.0-11.0); MONO % 4.1 % (1.0-6.0); RBC 4.65 10^6/uL (3.5-6.1); RED CELL DISTRIBUTION WIDTH 16.2 % (11.5-14.5); WHITE BLOOD COUNT 23.5 10^3/ul (4.5-11.0)
[2017-10-05 06:45] LABS: ARTERIAL BLOOD GAS O2 CAPACITY 16.6 mL/dl (16-24); ARTERIAL BLOOD GAS O2 CONTENT 14.8 ML/dl (15-23); ARTERIAL BLOOD GAS O2 SAT 89.2 % (95-98); ARTERIAL BLOOD GAS PCO2 66 mm/Hg (35-45); ARTERIAL BLOOD GAS PH 7.38 (7.35-7.45)
[2017-10-05 07:16] LABS: CALCIUM 8.5 mg/dL (8.4-10.5); TROPONIN I 9.31 ng/mL
[2017-10-05] MEDS: Budesonide 0.5 mg/2 ml Inhal Susp UD IH SCH ×2 (07:51→20:00)
[2017-10-05] MEDS: Levalbuterol 1.25 MG/3 ML Inhal Soln UD IH SCH ×3 (07:51→20:00)
[2017-10-05] MEDS: Insulin Lispro (humaLOG) MEDIUM Coverage SC SCH ×4 (08:43→21:07)
--- NOTE | 2017-10-05 08:54 | PN ---
DATE: 10/05/2017(640am-730am) PULMONARY NOTE SUBJECTIVE: The patient appears comfortable this morning. She is not short of breath at rest. OBJECTIVE: VITAL SIGNS: Temperature is 98, pulse 84, respirations 18, blood pressure 113/64. Oxygen saturation on nasal cannula is 92%. HEENT: Normocephalic, atraumatic. No JVD. CARDIOVASCULAR: Systolic ejection murmur at the lower left sternal border. No S3 gallop. LUNGS: Crackles at both bases - chronic. Less rhonchi. No wheezing this morning. EXTREMITIES: Mild edema. No cyanosis, no clubbing. Calves are nontender to palpation. GI: Abdomen is soft, nontender and nondistended. Bowel sounds are positive. SKIN: No acute rash. NEUROLOGIC: Exam limited at the present time. PERTINENT LABORATORY DATA: Chest x-ray was done this morning and reviewed. There are less interstitial changes noted on today's film. In addition, the right lower lobe findings - seen on yesterday's film - have almost completely resolved. The film today appears very similar to her baseline. Arterial blood gas was done on 2 liters nasal cannula. Results are: pH 7.38, pCO2 66, pO2 of 58. Troponin this morning 9.31, peak troponin 11.80. IMPRESSION: 1. Recurrent respiratory failure. 2. Rule out pneumonia - right lower lobe - less likely. 3. Recurrent bronchitis. 4. Advanced chronic obstructive pulmonary disease. 5. Advanced interstitial lung disease. 6. Acute myocardial infarction. +history of coronary artery disease. PLAN: The patient appears comfortable this morning. She is not short of breath at rest. She does state to feeling much better overall. I did discuss the case with the night nurse at length. The night nurse stated that the patient had a good night. I did review the chest x-ray as above. The chest x-ray today shows almost complete clearing of the previously seen right lower lobe abnormalities. Again, as above, the chest x-ray today appears very similar to her baseline. I have also reviewed the arterial blood gas. Chronic respiratory failure with hypoxemia is noted. I did discuss the arterial blood gas with the respiratory therapist. The oxygen will be increased to 2-1/2 liters per minute. On physical exam, there is certainly less bronchospasm noted. I will continue with the current nebulizer treatments and decrease the intravenous steroids this morning. The patient remains on antibiotic therapy - as per Infectious Disease. The temperatures have now fully resolved. The leukocytosis is also improved/decreased.. Lastly, the procalcitonin done yesterday was negative. Given the negative procalcitonin, along with the rapid improvement in chest x-ray findings, pneumonia is less likely at this point in time. Cardiology evaluation (Dr. Henry) is noted. The patient is status post cardiac catheterization. The clinical status of the patient is significantly improved - compared to the initial presentation. However, again, unfortunately, the overall/future status/prognosis for this patient remains poor. All are aware. I will discuss the above with the entire ICU team in the next few moments. I will also discuss the above with the attending physician later this morning. Randell Becker MD MTDD
--- NOTE | 2017-10-05 08:59 | CARD ---
APPROVED REPORT EKG Measurement Heart [id number] <Conclusion> Normal sinus rhythm Left axis deviation Anteroseptal infarct, age undetermined T wave abnormality, consider inferolateral ischemia, increased c/w earlier ECG Prolonged QTc
[2017-10-05] MEDS: Meropenem IV 1 gm in NS 50 ML IVPB SCH ×2 (09:13→21:12)
[2017-10-05 09:17] LABS: ARTERIAL BLOOD GAS HCO3 37.5 mmol/L (21-28); ARTERIAL BLOOD GAS HEMOGLOBIN 12.2 g/dL (11.7-17.4); ARTERIAL BLOOD GAS O2 CAPACITY 16.8 mL/dl (16-24); ARTERIAL BLOOD GAS O2 CONTENT 15.8 ML/dl (15-23); ARTERIAL BLOOD GAS O2 SAT 94.2 % (95-98); ARTERIAL BLOOD GAS PCO2 62 mm/Hg (35-45); ARTERIAL BLOOD GAS PH 7.39 (7.35-7.45); ARTERIAL BLOOD GAS TCO2 39.4 mmol.L (22-28)
--- NOTE | 2017-10-05 09:32 | CARD ---
APPROVED REPORT EKG Measurement Heart [id number] <Conclusion> Normal sinus rhythm Left axis deviation ASMI, age unknown Increased T wave inversions , now including V 3
[2017-10-05] MEDS ORDERED: MethylPREDNISolone 40 mg Vial IVP SCH (10:00)
--- NOTE | 2017-10-05 10:23 | CP.CCUPN ---
<Jesse Chauhan - Last Filed: 10/05/17 11:44> CCU Subjective - Physician Review Subjective (Free Text): Jesse Chauhan PGY-1 ICU Progress Note for Dr. Stiles Pt seen and evaluated at bedside. Pt has no complaints at this time. No acute events overnight. Pt denies fever, lightheadedness, dizziness, chest pain, SOB, abdominal pain, nausea, vomiting, diarrhea, hematochezia, melena, dysuria. Pt reports she had one bowel movement, which was normal. A 12 point ROS was reviewed and is unremarkable except as stated above. CCU Objective - Vital Signs / Intake & Output Vital Signs (Last 4 hours): Vital Signs Pulse Resp BP Pulse Ox 10/05/17 10:01 96 H 124/67 10/05/17 10:00 96 H 124/67 10/05/17 08:56 106 H 29 H 10/05/17 08:50 105 H 21 57 L 10/05/17 08:40 103 H 32 H 80 L 10/05/17 08:30 100 H 27 H 42 L 10/05/17 08:25 94 H 26 H 10/05/17 08:20 92 H 26 H 91 L 10/05/17 08:10 90 25 H 86 L 10/05/17 08:01 93 H 19 142/77 71 L 10/05/17 08:00 89 12 93 L 10/05/17 07:51 88 28 H 10/05/17 07:50 87 79 H 85 L 10/05/17 07:47 92 H 30 H 126/69 91 L 10/05/17 07:40 91 H 41 H 10/05/17 07:30 90 10/05/17 07:29 93 H 19 10/05/17 07:28 92 H 19 10/05/17 07:20 94 H 22 10/05/17 07:10 94 H 28 H 10/05/17 07:09 91 H 37 H 10/05/17 07:08 93 H 34 H 10/05/17 07:07 93 H 70 H 10/05/17 07:06 92 H 17 10/05/17 07:05 93 H 21 10/05/17 07:04 92 H 15 10/05/17 07:03 91 H 26 H 10/05/17 07:02 95 H 18 07/06/18 07:00 91 H 27 H 61 L 10/05/17 06:50 92 H 20 99 10/05/17 06:40 88 48 H 96 10/05/17 06:32 97 H 52 H 10/05/17 06:31 97 H 10/05/17 06:30 95 H 19 84 L 10/05/17 06:23 85 22 10/05/17 06:20 89 45 H 88 L Intake and Output (Last 8hrs): Intake & Output 10/04/17 10/05/17 10/05/17 22:59 06:59 14:59 Intake Total 1600 2100 Output Total 900 1875 Balance 700 225 Weight 148 lb Intake: IV 1200 1700 Left Wrist 1200 1700 Oral 400 400 Output: Urine 900 1875 Urine, Voided 900 1875 Other: # Voids Urine, Voided 3 # Bowel Movements 0 - Physical Exam Head: Positive for: Atraumatic, Normocephalic Pupils: Positive for: PERRL Extroacular Muscles: Positive for: EOMI Conjunctiva: Positive for: Normal Mouth: Positive for: Moist Mucous Membranes Neck: Positive for: Normal Range of Motion Respiratory/Chest: Positive for: Wheezes (throughout all lung willis), Decreased Breath Sounds (in lower lung willis), Other (Pt is actively coughing during the pre-xopenex interview; Non-productive.). Negative for: Respiratory Distress, Accessory Muscle Use (On 2.5L nasal cannula) Cardiovascular: Positive for: Regular Rate and Rhythm, Normal S1, S2, Peripheal Pulses Present. Negative for: Murmurs Abdomen: Positive for: Tenderness, Normal Bowel Sounds (in all 4 quadrants), Peritoneal Signs, Other (pt did not allow me palpate her abdomen due to her large umbilical hernia). Negative for: Distention Back: Positive for: Normal Inspection Upper Extremity: Positive for: Normal Inspection. Negative for: Cyanosis, Edema Lower Extremity: Positive for: Normal Inspection. Negative for: Edema, CALF TENDERNESS, Weston's Sign, Tenderness Neurological: Positive for: GCS=15, CN II-XII Intact, Speech Normal Skin: Positive for: Warm, Dry, Normal Color (scattered mild senile purpora on bilateral upper extremities). Negative for: Rashes Psychiatric: Positive for: Alert, Oriented x 3, Normal Insight, Normal Concentration, Normal Mood - Medications Active Medications: Active Medications Generic Name Dose Route Start Last Admin Trade Name Freq PRN Reason Stop Dose Admin Acetaminophen 650 mg 10/04/17 01:43 Tylenol 325mg Tab PO Q4H PRN Pain, Mild (1-3) Acetaminophen 650 mg 10/04/17 04:50 Tylenol 325mg Tab PO Q4 PRN Fever >100.4 F Allopurinol 300 mg 10/04/17 10:00 10/05/17 10:00 Zyloprim PO 300 mg DAILY BRIANNA Administration Alprazolam 0.25 mg 10/04/17 04:51 10/04/17 19:46 Xanax PO 10/11/17 04:52 0.25 mg TID PRN Administration Anxiety Protocol Aspirin 81 mg 10/04/17 10:00 10/05/17 10:01 Ecotrin PO 81 mg DAILY BRIANNA Administration Atorvastatin Calcium 20 mg 10/04/17 10:00 10/05/17 10:01 Lipitor PO 20 mg DAILY BRIANNA Administration Benzocaine/Menthol 1 jack 10/04/17 23:17 10/05/17 05:51 Cepacol Sore Throat MT 1 jack Q2H PRN Administration Sore Throat Budesonide 0.5 mg 10/04/17 08:00 10/05/17 07:51 Pulmicort Respules IH Not Given [id number] [facility] Carvedilol 3.125 mg 10/05/17 10:00 10/05/17 10:01 Coreg PO 3.125 mg BID BRIANNA Administration Clopidogrel Bisulfate 75 mg 10/04/17 10:00 10/05/17 10:00 Plavix PO 75 mg DAILY BRIANNA Administration Enoxaparin Sodium 70 mg 10/04/17 03:15 10/05/17 03:30 Lovenox SC 10/05/17 23:59 70 mg Q12H BRIANNA Administration Protocol Enoxaparin Sodium 30 mg 10/06/17 10:00 Lovenox SC DAILY [facility] Protocol Furosemide 40 mg 10/04/17 10:00 10/05/17 10:01 Lasix PO 40 mg DAILY BRIANNA Administration Gabapentin 200 mg 10/04/17 10:00 10/05/17 10:01 Neurontin PO 200 mg TID BRIANNA Administration Protocol Levofloxacin/Dextrose 750 mg in 150 mls @ 100 mls/hr 10/06/17 02:00 Levaquin 750mg IVPB Q48H BRIANNA Protocol Meropenem 50 mls @ 100 mls/hr 10/04/17 10:36 10/05/17 09:13 Merrem Iv 1 Gm Premix IVPB 10/13/17 10:37 100 mls/hr Q8 BRIANNA Administration Protocol Linezolid 600 mg in 300 mls @ 200 mls/hr 10/04/17 22:00 10/04/17 21:31 Zyvox 600mg/300ml D5w IVPB 10/13/17 22:01 200 mls/hr Q12 BRIANNA Administration Protocol Insulin Detemir 25 unit 10/04/17 22:00 10/04/17 21:31 Levemir SC 25 units HS BRIANNA Administration Insulin Human Lispro 0 units 10/04/17 07:30 10/05/17 08:43 Humalog Med SC 7 units ACHS BRIANNA Administration Protocol Isosorbide Mononitrate 60 mg 10/05/17 10:00 10/05/17 10:01 Imdur PO 60 mg DAILY BRIANNA Administration Levalbuterol HCl 1.25 mg 10/05/17 08:00 10/05/17 07:51 Xopenex IH 1.25 mg [id number] BRIANNA Administration Lisinopril 2.5 mg 10/05/17 10:00 10/05/17 10:00 Zestril PO 2.5 mg DAILY BRIANNA Administration Methylprednisolone 40 mg 10/05/17 10:00 10/05/17 09:58 Solu-Medrol IVP 40 mg Q12 BRIANNA Administration Pantoprazole Sodium 40 mg 10/04/17 06:00 10/05/17 05:35 Protonix Ec Tab PO 40 mg 0600 BRIANNA Administration Ropinirole HCl 3 mg 10/04/17 22:00 10/04/17 21:35 Requip PO 3 mg HS BRIANNA Administration Verapamil HCl 40 mg 10/04/17 10:00 10/05/17 10:00 Calan Tab PO 40 mg TID BRIANNA Administration - Patient Studies Lab Studies: Microbiology Studies 10/04/17 06:20 Gram Stain - Final Sputum Sputum Culture - Preliminary Pseudomonas Aeruginosa Lab Studies 10/05/17 10/05/17 10/05/17 Range/Units 08:39 06:30 06:30 WBC (4.5-11.0) 10^3/ul RBC (3.5-6.1) 10^6/uL Hgb (12.0-16.0) g/dL Hct (36.0-48.0) % MCV (80.0-105.0) fl MCH (25.0-35.0) pg MCHC (31.0-37.0) g/dl RDW (11.5-14.5) % Plt Count (120.0-450.0) 10^3/uL MPV (7.0-11.0) fl Gran % (50.0-68.0) % Lymph % (Auto) (22.0-35.0) % [place] % (Auto) (1.0-6.0) % Eos % (Auto) (1.5-5.0) % Baso % (Auto) (0.0-3.0) % Gran # (1.4-6.5) Lymph # (Auto) (1.2-3.4) [place] # (Auto) (0.1-0.6) Eos # (Auto) (0.0-0.7) Baso # (Auto) (0.0-2.0) K/mm3 Neutrophils % (Manual) (50.0-70.0) % Band Neutrophils % (0-2) % Lymphocytes % (Manual) (22.0-35.0) % Monocytes % (Manual) (1.0-6.0) % Platelet Evaluation (NORMAL) pCO2 66 H (35-45) mm/Hg pO2 58.0 L (80-100) mm/Hg HCO3 39.0 H (21-28) mmol/L ABG pH 7.38 (7.35-7.45) ABG Total CO2 41.0 H (22-28) mmol.L ABG O2 Saturation 89.2 L (95-98) % ABG O2 Content 14.8 L (15-23) ML/dl ABG Base Excess 11.4 H (-2.0-3.0) mmol/L ABG Hemoglobin 12.0 (11.7-17.4) g/dL ABG Carboxyhemoglobin 1.1 (0.5-1.5) % POC ABG HHb (Measured) 10.6 H (0-5) % ABG Methemoglobin 0.5 (0.0-3.0) % ABG O2 Capacity 16.6 (16-24) mL/dl Hgb O2 Saturation 87.9 L (95.0-98.0) % FiO2 28.0 % Sodium (132-148) mmol/L Potassium (3.6-5.0) mmol/L Chloride (98-107) mmol/L Carbon Dioxide (21-33) mmol/L Anion Gap (10-20) BUN (7-21) mg/dL Creatinine (0.7-1.2) mg/dl Est GFR ( Amer) Est GFR (Non-Af Amer) POC Glucose (mg/dL) 319 H (65-110) mg/dL Random Glucose (70-110) mg/dL Calcium (8.4-10.5) mg/dL Phosphorus (2.5-4.5) mg/dL Magnesium 1.9 (1.7-2.2) mg/dL Lactate Dehydrogenase (333-699) U/L Total Creatine Kinase (35-230) U/L Troponin I ng/mL Triglycerides (35-160) mg/dL Cholesterol (130-200) mg/dL LDL Cholesterol Direct (0-129) mg/dL HDL Cholesterol (29-60) mg/dL TSH 3rd Generation (0.46-4.68) mIU/mL 10/05/17 10/05/17 10/05/17 Range/Units 06:20 06:00 06:00 WBC 23.5 H (4.5-11.0) 10^3/ul RBC 4.65 (3.5-6.1) 10^6/uL Hgb 12.4 (12.0-16.0) g/dL Hct 40.7 (36.0-48.0) % MCV 87.5 (80.0-105.0) fl MCH 26.7 (25.0-35.0) pg MCHC 30.5 L (31.0-37.0) g/dl RDW 16.2 H (11.5-14.5) % Plt Count 401 (120.0-450.0) 10^3/uL MPV 10.5 (7.0-11.0) fl Gran % 92.4 H (50.0-68.0) % Lymph % (Auto) 3.5 L (22.0-35.0) % [place] % (Auto) 4.1 (1.0-6.0) % Eos % (Auto) 0.0 L (1.5-5.0) % Baso % (Auto) 0.0 (0.0-3.0) % Gran # 21.66 H (1.4-6.5) Lymph # (Auto) 0.8 L (1.2-3.4) [place] # (Auto) 1.0 H (0.1-0.6) Eos # (Auto) 0.0 (0.0-0.7) Baso # (Auto) 0.01 (0.0-2.0) K/mm3 Neutrophils % (Manual) (50.0-70.0) % Band Neutrophils % (0-2) % Lymphocytes % (Manual) (22.0-35.0) % Monocytes % (Manual) (1.0-6.0) % Platelet Evaluation (NORMAL) pCO2 75 H* (35-45) mm/Hg pO2 36.0 L* (80-100) mm/Hg HCO3 41.4 H* (21-28) mmol/L ABG pH 7.35 (7.35-7.45) ABG Total CO2 43.7 H (22-28) mmol.L ABG O2 Saturation 63.2 L (95-98) % ABG O2 Content 10.5 L (15-23) ML/dl ABG Base Excess 12.8 H (-2.0-3.0) mmol/L ABG Hemoglobin 12.0 (11.7-17.4) g/dL ABG Carboxyhemoglobin 1.1 (0.5-1.5) % POC ABG HHb (Measured) 36.4 H (0-5) % ABG Methemoglobin 0.1 (0.0-3.0) % ABG O2 Capacity 16.6 (16-24) mL/dl Hgb O2 Saturation 62.5 L (95.0-98.0) % FiO2 28.0 % Sodium (132-148) mmol/L Potassium (3.6-5.0) mmol/L Chloride (98-107) mmol/L Carbon Dioxide (21-33) mmol/L Anion Gap (10-20) BUN (7-21) mg/dL Creatinine (0.7-1.2) mg/dl Est GFR ( Amer) Est GFR (Non-Af Amer) POC Glucose (mg/dL) (65-110) mg/dL Random Glucose (70-110) mg/dL Calcium (8.4-10.5) mg/dL Phosphorus (2.5-4.5) mg/dL Magnesium (1.7-2.2) mg/dL Lactate Dehydrogenase (333-699) U/L Total Creatine Kinase (35-230) U/L Troponin I ng/mL Triglycerides (35-160) mg/dL Cholesterol (130-200) mg/dL LDL Cholesterol Direct (0-129) mg/dL HDL Cholesterol (29-60) mg/dL TSH 3rd Generation 0.44 L (0.46-4.68) mIU/mL 10/05/17 10/04/17 10/04/17 Range/Units 06:00 21:21 20:43 WBC (4.5-11.0) 10^3/ul RBC (3.5-6.1) 10^6/uL Hgb (12.0-16.0) g/dL Hct (36.0-48.0) % MCV (80.0-105.0) fl MCH (25.0-35.0) pg MCHC (31.0-37.0) g/dl RDW (11.5-14.5) % Plt Count (120.0-450.0) 10^3/uL MPV (7.0-11.0) fl Gran % (50.0-68.0) % Lymph % (Auto) (22.0-35.0) % [place] % (Auto) (1.0-6.0) % Eos % (Auto) (1.5-5.0) % Baso % (Auto) (0.0-3.0) % Gran # (1.4-6.5) Lymph # (Auto) (1.2-3.4) [place] # (Auto) (0.1-0.6) Eos # (Auto) (0.0-0.7) Baso # (Auto) (0.0-2.0) K/mm3 Neutrophils % (Manual) (50.0-70.0) % Band Neutrophils % (0-2) % Lymphocytes % (Manual) (22.0-35.0) % Monocytes % (Manual) (1.0-6.0) % Platelet Evaluation (NORMAL) pCO2 (35-45) mm/Hg pO2 (80-100) mm/Hg HCO3 (21-28) mmol/L ABG pH (7.35-7.45) ABG Total CO2 (22-28) mmol.L ABG O2 Saturation (95-98) % ABG O2 Content (15-23) ML/dl ABG Base Excess (-2.0-3.0) mmol/L ABG Hemoglobin (11.7-17.4) g/dL ABG Carboxyhemoglobin (0.5-1.5) % POC ABG HHb (Measured) (0-5) % ABG Methemoglobin (0.0-3.0) % ABG O2 Capacity (16-24) mL/dl Hgb O2 Saturation (95.0-98.0) % FiO2 % Sodium 138 136 (132-148) mmol/L Potassium 4.7 4.6 (3.6-5.0) mmol/L Chloride 91 L 91 L (98-107) mmol/L Carbon Dioxide 39 H 38 H (21-33) mmol/L Anion Gap 12 12 (10-20) BUN 32 H 32 H (7-21) mg/dL Creatinine 1.1 1.0 (0.7-1.2) mg/dl Est GFR ( Amer) 59 > 60 Est GFR (Non-Af Amer) 49 54 POC Glucose (mg/dL) 270 H (65-110) mg/dL Random Glucose 355 H* 400 H* (70-110) mg/dL Calcium 8.5 8.6 (8.4-10.5) mg/dL Phosphorus 4.1 (2.5-4.5) mg/dL Magnesium (1.7-2.2) mg/dL Lactate Dehydrogenase 820 H (333-699) U/L Total Creatine Kinase 147 (35-230) U/L Troponin I 9.31 H* D ng/mL Triglycerides 152 (35-160) mg/dL Cholesterol 123 L (130-200) mg/dL LDL Cholesterol Direct 41 (0-129) mg/dL HDL Cholesterol 53 (29-60) mg/dL TSH 3rd Generation (0.46-4.68) mIU/mL 10/04/17 10/04/17 10/04/17 Range/Units 18:51 11:01 08:40 WBC (4.5-11.0) 10^3/ul RBC (3.5-6.1) 10^6/uL Hgb (12.0-16.0) g/dL Hct (36.0-48.0) % MCV (80.0-105.0) fl MCH (25.0-35.0) pg MCHC (31.0-37.0) g/dl RDW (11.5-14.5) % Plt Count (120.0-450.0) 10^3/uL MPV (7.0-11.0) fl Gran % (50.0-68.0) % Lymph % (Auto) (22.0-35.0) % [place] % (Auto) (1.0-6.0) % Eos % (Auto) (1.5-5.0) % Baso % (Auto) (0.0-3.0) % Gran # (1.4-6.5) Lymph # (Auto) (1.2-3.4) [place] # (Auto) (0.1-0.6) Eos # (Auto) (0.0-0.7) Baso # (Auto) (0.0-2.0) K/mm3 Neutrophils % (Manual) 96 H (50.0-70.0) % Band Neutrophils % 1 (0-2) % Lymphocytes % (Manual) 2 L (22.0-35.0) % Monocytes % (Manual) 1 (1.0-6.0) % Platelet Evaluation Normal (NORMAL) pCO2 (35-45) mm/Hg pO2 (80-100) mm/Hg HCO3 (21-28) mmol/L ABG pH (7.35-7.45) ABG Total CO2 (22-28) mmol.L ABG O2 Saturation (95-98) % ABG O2 Content (15-23) ML/dl ABG Base Excess (-2.0-3.0) mmol/L ABG Hemoglobin (11.7-17.4) g/dL ABG Carboxyhemoglobin (0.5-1.5) % POC ABG HHb (Measured) (0-5) % ABG Methemoglobin (0.0-3.0) % ABG O2 Capacity (16-24) mL/dl Hgb O2 Saturation (95.0-98.0) % FiO2 % Sodium (132-148) mmol/L Potassium (3.6-5.0) mmol/L Chloride (98-107) mmol/L Carbon Dioxide (21-33) mmol/L Anion Gap (10-20) BUN (7-21) mg/dL Creatinine (0.7-1.2) mg/dl Est GFR ( Amer) Est GFR (Non-Af Amer) POC Glucose (mg/dL) 371 H 385 H (65-110) mg/dL Random Glucose (70-110) mg/dL Calcium (8.4-10.5) mg/dL Phosphorus (2.5-4.5) mg/dL Magnesium (1.7-2.2) mg/dL Lactate Dehydrogenase (333-699) U/L Total Creatine Kinase (35-230) U/L Troponin I ng/mL Triglycerides (35-160) mg/dL Cholesterol (130-200) mg/dL LDL Cholesterol Direct (0-129) mg/dL HDL Cholesterol (29-60) mg/dL TSH 3rd Generation (0.46-4.68) mIU/mL Laboratory Results - last 24 hr 10/04/17 10/04/17 10/04/17 08:40 11:01 18:51 WBC RBC Hgb Hct MCV MCH MCHC RDW Plt Count MPV Gran % Lymph % (Auto) [place] % (Auto) Eos % (Auto) Baso % (Auto) Gran # Lymph # (Auto) [place] # (Auto) Eos # (Auto) Baso # (Auto) Neutrophils % (Manual) 96 H Band Neutrophils % 1 Lymphocytes % (Manual) 2 L Monocytes % (Manual) 1 Platelet Evaluation Normal pCO2 pO2 HCO3 ABG pH ABG Total CO2 ABG O2 Saturation ABG O2 Content ABG Base Excess ABG Hemoglobin ABG Carboxyhemoglobin POC ABG HHb (Measured) ABG Methemoglobin ABG O2 Capacity Hgb O2 Saturation FiO2 Sodium Potassium Chloride Carbon Dioxide Anion Gap BUN Creatinine Est GFR ( Amer) Est GFR (Non-Af Amer) POC Glucose (mg/dL) 385 H 371 H Random Glucose Calcium Phosphorus Magnesium Lactate Dehydrogenase Total Creatine Kinase Troponin I Triglycerides Cholesterol LDL Cholesterol Direct HDL Cholesterol TSH 3rd Generation 10/04/17 10/04/17 10/05/17 20:43 21:21 06:00 WBC RBC Hgb Hct MCV MCH MCHC RDW Plt Count MPV Gran % Lymph % (Auto) [place] % (Auto) Eos % (Auto) Baso % (Auto) Gran # Lymph # (Auto) [place] # (Auto) Eos # (Auto) Baso # (Auto) Neutrophils % (Manual) Band Neutrophils % Lymphocytes % (Manual) Monocytes % (Manual) Platelet Evaluation pCO2 pO2 HCO3 ABG pH ABG Total CO2 ABG O2 Saturation ABG O2 Content ABG Base Excess ABG Hemoglobin ABG Carboxyhemoglobin POC ABG HHb (Measured) ABG Methemoglobin ABG O2 Capacity Hgb O2 Saturation FiO2 Sodium 136 138 Potassium 4.6 4.7 Chloride 91 L 91 L Carbon Dioxide 38 H 39 H Anion Gap 12 12 BUN 32 H 32 H Creatinine 1.0 1.1 Est GFR ( Amer) > 60 59 Est GFR (Non-Af Amer) 54 49 POC Glucose (mg/dL) 270 H Random Glucose 400 H* 355 H* Calcium 8.6 8.5 Phosphorus 4.1 Magnesium Lactate Dehydrogenase 820 H Total Creatine Kinase 147 Troponin I 9.31 H* D Triglycerides 152 Cholesterol 123 L LDL Cholesterol Direct 41 HDL Cholesterol 53 TSH 3rd Generation 10/05/17 10/05/17 10/05/17 06:00 06:00 06:20 WBC 23.5 H RBC 4.65 Hgb 12.4 Hct 40.7 MCV 87.5 MCH 26.7 MCHC 30.5 L RDW 16.2 H Plt Count 401 MPV 10.5 Gran % 92.4 H Lymph % (Auto) 3.5 L [place] % (Auto) 4.1 Eos % (Auto) 0.0 L Baso % (Auto) 0.0 Gran # 21.66 H Lymph # (Auto) 0.8 L [place] # (Auto) 1.0 H Eos # (Auto) 0.0 Baso # (Auto) 0.01 Neutrophils % (Manual) Band Neutrophils % Lymphocytes % (Manual) Monocytes % (Manual) Platelet Evaluation pCO2 75 H* pO2 36.0 L* HCO3 41.4 H* ABG pH 7.35 ABG Total CO2 43.7 H ABG O2 Saturation 63.2 L ABG O2 Content 10.5 L ABG Base Excess 12.8 H ABG Hemoglobin 12.0 ABG Carboxyhemoglobin 1.1 POC ABG HHb (Measured) 36.4 H ABG Methemoglobin 0.1 ABG O2 Capacity 16.6 Hgb O2 Saturation 62.5 L FiO2 28.0 Sodium Potassium Chloride Carbon Dioxide Anion Gap BUN Creatinine Est GFR ( Amer) Est GFR (Non-Af Amer) POC Glucose (mg/dL) Random Glucose Calcium Phosphorus Magnesium Lactate Dehydrogenase Total Creatine Kinase Troponin I Triglycerides Cholesterol LDL Cholesterol Direct HDL Cholesterol TSH 3rd Generation 0.44 L 10/05/17 10/05/17 10/05/17 06:30 06:30 08:39 WBC RBC Hgb Hct MCV MCH MCHC RDW Plt Count MPV Gran % Lymph % (Auto) [place] % (Auto) Eos % (Auto) Baso % (Auto) Gran # Lymph # (Auto) [place] # (Auto) Eos # (Auto) Baso # (Auto) Neutrophils % (Manual) Band Neutrophils % Lymphocytes % (Manual) Monocytes % (Manual) Platelet Evaluation pCO2 66 H pO2 58.0 L HCO3 39.0 H ABG pH 7.38 ABG Total CO2 41.0 H ABG O2 Saturation 89.2 L ABG O2 Content 14.8 L ABG Base Excess 11.4 H ABG Hemoglobin 12.0 ABG Carboxyhemoglobin 1.1 POC ABG HHb (Measured) 10.6 H ABG Methemoglobin 0.5 ABG O2 Capacity 16.6 Hgb O2 Saturation 87.9 L FiO2 28.0 Sodium Potassium Chloride Carbon Dioxide Anion Gap BUN Creatinine Est GFR ( Amer) Est GFR (Non-Af Amer) POC Glucose (mg/dL) 319 H Random Glucose Calcium Phosphorus Magnesium 1.9 Lactate Dehydrogenase Total Creatine Kinase Troponin I Triglycerides Cholesterol LDL Cholesterol Direct HDL Cholesterol TSH 3rd Generation EKG/Cardiology Studies: Cardiology / EKG Studies 10/04/17 14:13 ELECTROCARDIOGRAM Urgent Comment: 12 lead EKG upon arrival in unit Reason For Exam: post ptca 10/05/17 07:00 ELECTROCARDIOGRAM Routine Comment: Reason For Exam: CAD PRE OP:: N Does Patient Have a Pacemaker?: No 10/05/17 14:15 ELECTROCARDIOGRAM DAILY Comment: Reason For Exam: chest pain Fingerstick Blood Sugar Results: 319 Review of Systems - Review of Systems All systems: reviewed and no additional remarkable complaints except (as per HPI ) Critical Care Progress Note - Prophylaxis GI Prophylaxis GI: PPI - Prophylaxis DVT Prophylaxis DVT: Lovenox - Nutrition Nutrition: Nutrition Category Date Time Status Heart Healthy Diet [DIET] Diets 10/04/17 Breakfast Active Assessment/Plan - Assessment and Plan (Free Text) Assessment: This is a 73 year old female with a PMHx of COPD on home O2, asthma, bronchitis, DM 2, CAD S/P 8 stents, and hyperlipidemia who presents to the ED with shortness of breath, cough, blood tinged sputum for 2 days. CXR showed RLL opacity, troponin was also noted to be elevated. COPD exacerbation is improving , RLL opacity is improving. Cath due to NSTEMI showed nonbstructive CAD, with small vessel CAD; EF approximately 35%. No stents were placed. Pt is hemodynamically stable and without complaints at this time. Plan: Neuro: - Monitor for any changes in mental status - Pt is AAOx3 at baseline - Continue home Ropinirole Cardio: - Troponin is trending downward, currently 9.31 - Pt is hemodynamically stable - Echo (10/04): EF 35%, moderate hypokinesis of anterior apical wall. - ASA, ACEi, Beta kimmy, Nitrates, statin, therapeutic lovenox, Verapamil - Continue home Plavix - Cath showed non obstructive CAD, small vessel CAD, EF approximately 45%, EDP 20 mmHg. - Will follow up with cardiology recs - Pt is tolerating PO, IVF discontinued Pulm: - CXR (today) shows resolving RLL opacities, increased vascular markings; pending final reading - Xopenex PRN, Pulmicort - Solu-Medrol 40q12 as per pulm, will continue to titrate - Merrem, Levaquin, Linezolid as per ID - ABG shows compensated chronic respiratory acidosis - Maintain SpO2 between 88 and 92 - NC 2.5L, BiPAP PRN - Pulm resc appreciated GI: - PPX with PTX ID: - Pt afebrile - Merrem, Levaquin, Linezolid as per ID - Procalcitonin 0.21 - ID recs appreciated - Blood culture x2 negative for the past 24 hours - Sputum Cx is positive for P. aeruginosa Endo: - Maintain euglycemia - Medium ISS, and fingerstick blood sugar ACHS - Levemir 25 units QHS Renal: - Maintain urine output above 0.5 mL/kg/hr - Replete electrolytes as needed MSK: - Continue home allopurinol PPX: GI PPX with PTX; VTE PPX obtained via therapeutic Lovenox dosing Dispo: Pt is stable and safe for transfer to telemetry; PMD is aware and agrees with transfer Pt seen and case discussed with attending, Dr. Stiles <Jesse Stiles - Last Filed: 10/05/17 12:06> CCU Objective - Vital Signs / Intake & Output Vital Signs (Last 4 hours): Vital Signs Pulse Resp BP Pulse Ox 10/05/17 10:01 96 H 12410/05/17 10:00 96 H 10/05/17 08:56 106 H 29 H 10/05/17 08:50 105 H 21 57 L 10/05/17 08:40 103 H 32 H 80 L 10/05/17 08:30 100 H 27 H 42 L 10/05/17 08:25 94 H 26 H 10/05/17 08:20 92 H 26 H 91 L 10/05/17 08:10 90 25 H 86 L Intake and Output (Last 8hrs): Intake & Output 10/04/17 10/05/17 10/05/17 22:59 06:59 14:59 Intake Total 1600 2100 Output Total 900 1875 Balance 700 225 Weight 148 lb Intake: IV 1200 1700 Left Wrist 1200 1700 Oral 400 400 Output: Urine 900 1875 Urine, Voided 900 1875 Other: # Voids Urine, Voided 3 # Bowel Movements 0 - Medications Active Medications: Active Medications Generic Name Dose Route Start Last Admin Trade Name Freq PRN Reason Stop Dose Admin Acetaminophen 650 mg 10/04/17 01:43 Tylenol 325mg Tab PO Q4H PRN Pain, Mild (1-3) Acetaminophen 650 mg 10/04/17 04:50 Tylenol 325mg Tab PO Q4 PRN Fever >100.4 F Allopurinol 300 mg 10/04/17 10:00 10/05/17 10:00 Zyloprim PO 300 mg DAILY BRIANNA Administration Alprazolam 0.25 mg 10/04/17 04:51 10/05/17 11:05 Xanax PO 10/11/17 04:52 0.25 mg TID PRN Administration Anxiety Protocol Aspirin 81 mg 10/04/17 10:00 10/05/17 10:01 Ecotrin PO 81 mg DAILY BRIANNA Administration Atorvastatin Calcium 20 mg 10/04/17 10:00 10/05/17 10:01 Lipitor PO 20 mg DAILY BRIANNA Administration Benzocaine/Menthol 1 jack 10/04/17 23:17 10/05/17 05:51 Cepacol Sore Throat MT 1 jack Q2H PRN Administration Sore Throat Budesonide 0.5 mg 10/04/17 08:00 10/05/17 07:51 Pulmicort Respules IH Not Given [id number] BRIANNA Carvedilol 3.125 mg 10/05/17 10:00 10/05/17 10:01 Coreg PO 3.125 mg BID BRIANNA Administration Clopidogrel Bisulfate 75 mg 10/04/17 10:00 10/05/17 10:00 Plavix PO 75 mg DAILY BRIANNA Administration Enoxaparin Sodium 70 mg 10/04/17 03:15 10/05/17 03:30 Lovenox SC 10/05/17 23:59 70 mg Q12H BRIANNA Administration Protocol Enoxaparin Sodium 30 mg 10/06/17 10:00 Lovenox SC DAILY BRIANNA Protocol Furosemide 40 mg 10/04/17 10:00 10/05/17 10:01 Lasix PO 40 mg DAILY BRIANNA Administration Gabapentin 200 mg 10/04/17 10:00 10/05/17 10:01 Neurontin PO 200 mg TID BRIANNA Administration Protocol Levofloxacin/Dextrose 750 mg in 150 mls @ 100 mls/hr 10/06/17 02:00 Levaquin 750mg IVPB Q48H BRIANNA Protocol Linezolid 600 mg in 300 mls @ 200 mls/hr 10/04/17 22:00 10/05/17 10:59 Zyvox 600mg/300ml D5w IVPB 10/13/17 22:01 200 mls/hr Q12 BRIANNA Administration Protocol Meropenem 50 mls @ 100 mls/hr 10/05/17 11:36 Merrem Iv 1 Gm Premix IVPB 10/13/17 10:37 Q12 BRIANNA Protocol Insulin Detemir 25 unit 10/04/17 22:00 10/04/17 21:31 Levemir SC 25 units HS BRIANNA Administration Insulin Human Lispro 0 units 10/04/17 07:30 10/05/17 08:43 Humalog Med SC 7 units ACHS BRIANNA Administration Protocol Isosorbide Mononitrate 60 mg 10/05/17 10:00 10/05/17 10:01 Imdur PO 60 mg DAILY BRIANNA Administration Levalbuterol HCl 1.25 mg 10/05/17 08:00 10/05/17 07:51 Xopenex IH 1.25 mg [id number] BRIANNA Administration Lisinopril 2.5 mg 10/05/17 10:00 10/05/17 10:00 Zestril PO 2.5 mg DAILY BRIANNA Administration Methylprednisolone 40 mg 10/05/17 10:00 10/05/17 09:58 Solu-Medrol IVP 40 mg Q12 BRIANNA Administration Pantoprazole Sodium 40 mg 10/04/17 06:00 10/05/17 05:35 Protonix Ec Tab PO 40 mg 0600 BRIANNA Administration Ropinirole HCl 3 mg 10/04/17 22:00 10/04/17 21:35 Requip PO 3 mg HS BRIANNA Administration Verapamil HCl 40 mg 10/04/17 10:00 10/05/17 10:00 Calan Tab PO 40 mg TID BRIANNA Administration - Patient Studies Lab Studies: Microbiology Studies 10/04/17 06:20 Gram Stain - Final Sputum Sputum Culture - Preliminary Pseudomonas Aeruginosa Lab Studies 10/05/17 10/05/17 10/05/17 Range/Units 08:39 06:30 06:30 WBC (4.5-11.0) 10^3/ul RBC (3.5-6.1) 10^6/uL Hgb (12.0-16.0) g/dL Hct (36.0-48.0) % MCV (80.0-105.0) fl MCH (25.0-35.0) pg MCHC (31.0-37.0) g/dl RDW (11.5-14.5) % Plt Count (120.0-450.0) 10^3/uL MPV (7.0-11.0) fl Gran % (50.0-68.0) % Lymph % (Auto) (22.0-35.0) % [place] % (Auto) (1.0-6.0) % Eos % (Auto) (1.5-5.0) % Baso % (Auto) (0.0-3.0) % Gran # (1.4-6.5) Lymph # (Auto) (1.2-3.4) [place] # (Auto) (0.1-0.6) Eos # (Auto) (0.0-0.7) Baso # (Auto) (0.0-2.0) K/mm3 pCO2 66 H (35-45) mm/Hg pO2 58.0 L (80-100) mm/Hg HCO3 39.0 H (21-28) mmol/L ABG pH 7.38 (7.35-7.45) ABG Total CO2 41.0 H (22-28) mmol.L ABG O2 Saturation 89.2 L (95-98) % ABG O2 Content 14.8 L (15-23) ML/dl ABG Base Excess 11.4 H (-2.0-3.0) mmol/L ABG Hemoglobin 12.0 (11.7-17.4) g/dL ABG Carboxyhemoglobin 1.1 (0.5-1.5) % POC ABG HHb (Measured) 10.6 H (0-5) % ABG Methemoglobin 0.5 (0.0-3.0) % ABG O2 Capacity 16.6 (16-24) mL/dl Hgb O2 Saturation 87.9 L (95.0-98.0) % FiO2 28.0 % Sodium (132-148) mmol/L Potassium (3.6-5.0) mmol/L Chloride (98-107) mmol/L Carbon Dioxide (21-33) mmol/L Anion Gap (10-20) BUN (7-21) mg/dL Creatinine (0.7-1.2) mg/dl Est GFR ( Amer) Est GFR (Non-Af Amer) POC Glucose (mg/dL) 319 H (65-110) mg/dL Random Glucose (70-110) mg/dL Calcium (8.4-10.5) mg/dL Phosphorus (2.5-4.5) mg/dL Magnesium 1.9 (1.7-2.2) mg/dL Lactate Dehydrogenase (333-699) U/L Total Creatine Kinase (35-230) U/L Troponin I ng/mL Triglycerides (35-160) mg/dL Cholesterol (130-200) mg/dL LDL Cholesterol Direct (0-129) mg/dL HDL Cholesterol (29-60) mg/dL TSH 3rd Generation (0.46-4.68) mIU/mL 10/05/17 10/05/17 10/05/17 Range/Units 06:20 06:00 06:00 WBC 23.5 H (4.5-11.0) 10^3/ul RBC 4.65 (3.5-6.1) 10^6/uL Hgb 12.4 (12.0-16.0) g/dL Hct 40.7 (36.0-48.0) % MCV 87.5 (80.0-105.0) fl MCH 26.7 (25.0-35.0) pg MCHC 30.5 L (31.0-37.0) g/dl RDW 16.2 H (11.5-14.5) % Plt Count 401 (120.0-450.0) 10^3/uL MPV 10.5 (7.0-11.0) fl Gran % 92.4 H (50.0-68.0) % Lymph % (Auto) 3.5 L (22.0-35.0) % [place] % (Auto) 4.1 (1.0-6.0) % Eos % (Auto) 0.0 L (1.5-5.0) % Baso % (Auto) 0.0 (0.0-3.0) % Gran # 21.66 H (1.4-6.5) Lymph # (Auto) 0.8 L (1.2-3.4) [place] # (Auto) 1.0 H (0.1-0.6) Eos # (Auto) 0.0 (0.0-0.7) Baso # (Auto) 0.01 (0.0-2.0) K/mm3 pCO2 75 H* (35-45) mm/Hg pO2 36.0 L* (80-100) mm/Hg HCO3 41.4 H* (21-28) mmol/L ABG pH 7.35 (7.35-7.45) ABG Total CO2 43.7 H (22-28) mmol.L ABG O2 Saturation 63.2 L (95-98) % ABG O2 Content 10.5 L (15-23) ML/dl ABG Base Excess 12.8 H (-2.0-3.0) mmol/L ABG Hemoglobin 12.0 (11.7-17.4) g/dL ABG Carboxyhemoglobin 1.1 (0.5-1.5) % POC ABG HHb (Measured) 36.4 H (0-5) % ABG Methemoglobin 0.1 (0.0-3.0) % ABG O2 Capacity 16.6 (16-24) mL/dl Hgb O2 Saturation 62.5 L (95.0-98.0) % FiO2 28.0 % Sodium (132-148) mmol/L Potassium (3.6-5.0) mmol/L Chloride (98-107) mmol/L Carbon Dioxide (21-33) mmol/L Anion Gap (10-20) BUN (7-21) mg/dL Creatinine (0.7-1.2) mg/dl Est GFR ( Amer) Est GFR (Non-Af Amer) POC Glucose (mg/dL) (65-110) mg/dL Random Glucose (70-110) mg/dL Calcium (8.4-10.5) mg/dL Phosphorus (2.5-4.5) mg/dL Magnesium (1.7-2.2) mg/dL Lactate Dehydrogenase (333-699) U/L Total Creatine Kinase (35-230) U/L Troponin I ng/mL Triglycerides (35-160) mg/dL Cholesterol (130-200) mg/dL LDL Cholesterol Direct (0-129) mg/dL HDL Cholesterol (29-60) mg/dL TSH 3rd Generation 0.44 L (0.46-4.68) mIU/mL 10/05/17 10/04/17 10/04/17 Range/Units 06:00 21:21 20:43 WBC (4.5-11.0) 10^3/ul RBC (3.5-6.1) 10^6/uL Hgb (12.0-16.0) g/dL Hct (36.0-48.0) % MCV (80.0-105.0) fl MCH (25.0-35.0) pg MCHC (31.0-37.0) g/dl RDW (11.5-14.5) % Plt Count (120.0-450.0) 10^3/uL MPV (7.0-11.0) fl Gran % (50.0-68.0) % Lymph % (Auto) (22.0-35.0) % [place] % (Auto) (1.0-6.0) % Eos % (Auto) (1.5-5.0) % Baso % (Auto) (0.0-3.0) % Gran # (1.4-6.5) Lymph # (Auto) (1.2-3.4) [place] # (Auto) (0.1-0.6) Eos # (Auto) (0.0-0.7) Baso # (Auto) (0.0-2.0) K/mm3 pCO2 (35-45) mm/Hg pO2 (80-100) mm/Hg HCO3 (21-28) mmol/L ABG pH (7.35-7.45) ABG Total CO2 (22-28) mmol.L ABG O2 Saturation (95-98) % ABG O2 Content (15-23) ML/dl ABG Base Excess (-2.0-3.0) mmol/L ABG Hemoglobin (11.7-17.4) g/dL ABG Carboxyhemoglobin (0.5-1.5) % POC ABG HHb (Measured) (0-5) % ABG Methemoglobin (0.0-3.0) % ABG O2 Capacity (16-24) mL/dl Hgb O2 Saturation (95.0-98.0) % FiO2 % Sodium 138 136 (132-148) mmol/L Potassium 4.7 4.6 (3.6-5.0) mmol/L Chloride 91 L 91 L (98-107) mmol/L Carbon Dioxide 39 H 38 H (21-33) mmol/L Anion Gap 12 12 (10-20) BUN 32 H 32 H (7-21) mg/dL Creatinine 1.1 1.0 (0.7-1.2) mg/dl Est GFR ( Amer) 59 > 60 Est GFR (Non-Af Amer) 49 54 POC Glucose (mg/dL) 270 H (65-110) mg/dL Random Glucose 355 H* 400 H* (70-110) mg/dL Calcium 8.5 8.6 (8.4-10.5) mg/dL Phosphorus 4.1 (2.5-4.5) mg/dL Magnesium (1.7-2.2) mg/dL Lactate Dehydrogenase 820 H (333-699) U/L Total Creatine Kinase 147 (35-230) U/L Troponin I 9.31 H* D ng/mL Triglycerides 152 (35-160) mg/dL Cholesterol 123 L (130-200) mg/dL LDL Cholesterol Direct 41 (0-129) mg/dL HDL Cholesterol 53 (29-60) mg/dL TSH 3rd Generation (0.46-4.68) mIU/mL 10/04/17 Range/Units 18:51 WBC (4.5-11.0) 10^3/ul RBC (3.5-6.1) 10^6/uL Hgb (12.0-16.0) g/dL Hct (36.0-48.0) % MCV (80.0-105.0) fl MCH (25.0-35.0) pg MCHC (31.0-37.0) g/dl RDW (11.5-14.5) % Plt Count (120.0-450.0) 10^3/uL MPV (7.0-11.0) fl Gran % (50.0-68.0) % Lymph % (Auto) (22.0-35.0) % [place] % (Auto) (1.0-6.0) % Eos % (Auto) (1.5-5.0) % Baso % (Auto) (0.0-3.0) % Gran # (1.4-6.5) Lymph # (Auto) (1.2-3.4) [place] # (Auto) (0.1-0.6) Eos # (Auto) (0.0-0.7) Baso # (Auto) (0.0-2.0) K/mm3 pCO2 (35-45) mm/Hg pO2 (80-100) mm/Hg HCO3 (21-28) mmol/L ABG pH (7.35-7.45) ABG Total CO2 (22-28) mmol.L ABG O2 Saturation (95-98) % ABG O2 Content (15-23) ML/dl ABG Base Excess (-2.0-3.0) mmol/L ABG Hemoglobin (11.7-17.4) g/dL ABG Carboxyhemoglobin (0.5-1.5) % POC ABG HHb (Measured) (0-5) % ABG Methemoglobin (0.0-3.0) % ABG O2 Capacity (16-24) mL/dl Hgb O2 Saturation (95.0-98.0) % FiO2 % Sodium (132-148) mmol/L Potassium (3.6-5.0) mmol/L Chloride (98-107) mmol/L Carbon Dioxide (21-33) mmol/L Anion Gap (10-20) BUN (7-21) mg/dL Creatinine (0.7-1.2) mg/dl Est GFR ( Amer) Est GFR (Non-Af Amer) POC Glucose (mg/dL) 371 H (65-110) mg/dL Random Glucose (70-110) mg/dL Calcium (8.4-10.5) mg/dL Phosphorus (2.5-4.5) mg/dL Magnesium (1.7-2.2) mg/dL Lactate Dehydrogenase (333-699) U/L Total Creatine Kinase (35-230) U/L Troponin I ng/mL Triglycerides (35-160) mg/dL Cholesterol (130-200) mg/dL LDL Cholesterol Direct (0-129) mg/dL HDL Cholesterol (29-60) mg/dL TSH 3rd Generation (0.46-4.68) mIU/mL Laboratory Results - last 24 hr 10/04/17 10/04/17 10/04/17 18:51 20:43 21:21 WBC RBC Hgb Hct MCV MCH MCHC RDW Plt Count MPV Gran % Lymph % (Auto) [place] % (Auto) Eos % (Auto) Baso % (Auto) Gran # Lymph # (Auto) [place] # (Auto) Eos # (Auto) Baso # (Auto) pCO2 pO2 HCO3 ABG pH ABG Total CO2 ABG O2 Saturation ABG O2 Content ABG Base Excess ABG Hemoglobin ABG Carboxyhemoglobin POC ABG HHb (Measured) ABG Methemoglobin ABG O2 Capacity Hgb O2 Saturation FiO2 Sodium 136 Potassium 4.6 Chloride 91 L Carbon Dioxide 38 H Anion Gap 12 BUN 32 H Creatinine 1.0 Est GFR ( Amer) > 60 Est GFR (Non-Af Amer) 54 POC Glucose (mg/dL) 371 H 270 H Random Glucose 400 H* Calcium 8.6 Phosphorus Magnesium Lactate Dehydrogenase Total Creatine Kinase Troponin I Triglycerides Cholesterol LDL Cholesterol Direct HDL Cholesterol TSH 3rd Generation 10/05/17 10/05/17 10/05/17 06:00 06:00 06:00 WBC 23.5 H RBC 4.65 Hgb 12.4 Hct 40.7 MCV 87.5 MCH 26.7 MCHC 30.5 L RDW 16.2 H Plt Count 401 MPV 10.5 Gran % 92.4 H Lymph % (Auto) 3.5 L [place] % (Auto) 4.1 Eos % (Auto) 0.0 L Baso % (Auto) 0.0 Gran # 21.66 H Lymph # (Auto) 0.8 L [place] # (Auto) 1.0 H Eos # (Auto) 0.0 Baso # (Auto) 0.01 pCO2 pO2 HCO3 ABG pH ABG Total CO2 ABG O2 Saturation ABG O2 Content ABG Base Excess ABG Hemoglobin ABG Carboxyhemoglobin POC ABG HHb (Measured) ABG Methemoglobin ABG O2 Capacity Hgb O2 Saturation FiO2 Sodium 138 Potassium 4.7 Chloride 91 L Carbon Dioxide 39 H Anion Gap 12 BUN 32 H Creatinine 1.1 Est GFR ( Amer) 59 Est GFR (Non-Af Amer) 49 POC Glucose (mg/dL) Random Glucose 355 H* Calcium 8.5 Phosphorus 4.1 Magnesium Lactate Dehydrogenase 820 H Total Creatine Kinase 147 Troponin I 9.31 H* D Triglycerides 152 Cholesterol 123 L LDL Cholesterol Direct 41 HDL Cholesterol 53 TSH 3rd Generation 0.44 L 10/05/17 10/05/17 10/05/17 06:20 06:30 06:30 WBC RBC Hgb Hct MCV MCH MCHC RDW Plt Count MPV Gran % Lymph % (Auto) [place] % (Auto) Eos % (Auto) Baso % (Auto) Gran # Lymph # (Auto) [place] # (Auto) Eos # (Auto) Baso # (Auto) pCO2 75 H* 66 H pO2 36.0 L* 58.0 L HCO3 41.4 H* 39.0 H ABG pH 7.35 7.38 ABG Total CO2 43.7 H 41.0 H ABG O2 Saturation 63.2 L 89.2 L ABG O2 Content 10.5 L 14.8 L ABG Base Excess 12.8 H 11.4 H ABG Hemoglobin 12.0 12.0 ABG Carboxyhemoglobin 1.1 1.1 POC ABG HHb (Measured) 36.4 H 10.6 H ABG Methemoglobin 0.1 0.5 ABG O2 Capacity 16.6 16.6 Hgb O2 Saturation 62.5 L 87.9 L FiO2 28.0 28.0 Sodium Potassium Chloride Carbon Dioxide Anion Gap BUN Creatinine Est GFR ( Amer) Est GFR (Non-Af Amer) POC Glucose (mg/dL) Random Glucose Calcium Phosphorus Magnesium 1.9 Lactate Dehydrogenase Total Creatine Kinase Troponin I Triglycerides Cholesterol LDL Cholesterol Direct HDL Cholesterol TSH 3rd Generation 10/05/17 08:39 WBC RBC Hgb Hct MCV MCH MCHC RDW Plt Count MPV Gran % Lymph % (Auto) [place] % (Auto) Eos % (Auto) Baso % (Auto) Gran # Lymph # (Auto) [place] # (Auto) Eos # (Auto) Baso # (Auto) pCO2 pO2 HCO3 ABG pH ABG Total CO2 ABG O2 Saturation ABG O2 Content ABG Base Excess ABG Hemoglobin ABG Carboxyhemoglobin POC ABG HHb (Measured) ABG Methemoglobin ABG O2 Capacity Hgb O2 Saturation FiO2 Sodium Potassium Chloride Carbon Dioxide Anion Gap BUN Creatinine Est GFR ( Amer) Est GFR (Non-Af Amer) POC Glucose (mg/dL) 319 H Random Glucose Calcium Phosphorus Magnesium Lactate Dehydrogenase Total Creatine Kinase Troponin I Triglycerides Cholesterol LDL Cholesterol Direct HDL Cholesterol TSH 3rd Generation EKG/Cardiology Studies: Cardiology / EKG Studies 10/04/17 14:13 ELECTROCARDIOGRAM Urgent Comment: 12 lead EKG upon arrival in unit Reason For Exam: post ptca 10/05/17 07:00 ELECTROCARDIOGRAM Routine Comment: Reason For Exam: CAD PRE OP:: N Does Patient Have a Pacemaker?: No 10/05/17 14:15 ELECTROCARDIOGRAM DAILY Comment: Reason For Exam: chest pain Critical Care Progress Note - Nutrition Nutrition: Nutrition Category Date Time Status Heart Healthy Diet [DIET] Diets 10/04/17 Breakfast Active Assessment/Plan - Assessment and Plan (Free Text) Plan: Patient seen and examined on rounds with resident, agree with note with following additions/exceptions: Patient is 72yo female with PMHx COPD on solumedrol and home O2, asthma, bronchitis, DM 2, CAD S/P 8 stents, and hyperlipidemia, presented with NSTEMI and COPD exacerbation. Currently afebrile, BP stable, comfortable on 4LNC, OFF BIPAP, ABG with chronic resp acidosis, patient is awake, alert, in NAD, doing well clinically. Patients labs and imaging noted,NSTEMI s/p cardiac cath yesterday, small vessel disease, on therapeutic lovenox, ASA, Statin, BB. Troponin downtrending NSTEMI COPD exacerbation PNA DM CAD HLD Recommend: - supp o2 as needed, goal sat 90%, duonebs PRN - solumedrol 40mg IV q12hr - Pulmicort BID - Azactam, Levaquin - check ruine Lg, Strep, Procal, follow up cultures - ASA, Statin, BB, Lovenox - ECHO - follow up cardiology - FS control - BP control - GI ppx - DVT ppx - transfer to telemetry
[2017-10-05] MEDS: Linezolid 600 mg in D5W 300 ml 600 MG/300 ML BAG IVPB SCH ×2 (10:59→21:12)
--- NOTE | 2017-10-05 13:12 | RAD ---
HISTORY: follow up COMPARISON: 10/04/2017 FINDINGS: LUNGS: Extensive interval resolution of previously identified opacity at both lung bases. Possible resolving pneumonia or atypical pulmonary edema. PLEURA: No significant pleural effusion identified, no pneumothorax apparent. CARDIOVASCULAR: Normal. OSSEOUS STRUCTURES: No significant abnormalities. VISUALIZED UPPER ABDOMEN: Normal. OTHER FINDINGS: None. IMPRESSION: Almost complete resolution of bibasilar opacities suggesting resolving pneumonia or pulmonary edema, atypical.
--- NOTE | 2017-10-05 16:19 | PN ---
DATE: 10/05/2017 REASON FOR CONSULTATION AND FOLLOWUP: Non-ST segment myocardial infarction, acute exacerbation of COPD, status post cardiac catheterization, small vessel disease. SUBJECTIVE: Patient denies any chest pain, sitting at bedside, awaiting for the breakfast. Denies any chest pain, shortness of breath or any palpitations. OBJECTIVE: GENERAL: Not in apparent distress, sitting at the bedside. VITAL SIGNS: Temperature is afebrile, heart rate 94, blood pressure 118/83. HEENT: PERRLA. Extraocular muscles are intact. NECK: Supple. No carotid bruit or thyromegaly. CHEST: Clear to auscultation. HEART: S1 and S2, regular. ABDOMEN: Soft. EXTREMITIES: Clubbing and cyanosis negative. Right femoral area looks okay. No hematoma noted. Dressing has been removed. LABORATORY DATA: Blood workup as follows: WBC 23.5, hemoglobin 12.4, hematocrit 40.7, platelet count 401. Chemistry shows sodium 138, potassium 4.7, chloride 91, carbon dioxide of 39, anion gap of 12, BUN 32, creatinine 1.1. Troponin 9.31. TSH is 0.44. Triglycerides , cholesterol 123, LDL 41, HDL 53. IMPRESSION: A 72-year-old female with past medical history significant for advanced chronic obstructive pulmonary oxygen, on home oxygen; history of coronary artery disease, status post multiple stents and multiple , admitted with acute exacerbation of chronic obstructive pulmonary disease and no complaint of chest pain. First troponin was 0.06, repeat troponin came out elevated at 0.8. The patient was then taken to the catheterization lab and had a cardiac catheterization done that shows small vessel disease, patent stent to left anterior descending, patent stent to ramus, patent stent in circumflex and right coronary artery, decreased left ventricular function, ejection fraction of 45% by cath, 35% by echo. Chronic obstructive pulmonary disease exacerbation, diabetes, hypertension, poorly controlled diabetes and on home oxygen. RECOMMENDATIONS: We will discontinue metoprolol. Discontinue 30 mg of lisinopril blood pressure is low, we will start 2.5 mg of lisinopril as per the patient tolerance, change to Coreg 3.125 mg twice a day. We will increase, titrating up as blood pressure is tolerated. Gentle diuretics, nitrates, Imdur, verapamil to control the of COPD. Continue gentle diuretics, antibiotics as a treatment for COPD. We will change Lovenox 30 mg every 12 hours from today to from tomorrow. Supplement electrolytes as needed. We will monitor closely the electrolytes and transfer to Telemetry. Continue broad-spectrum antibiotics as per ID. Discussed with the nursing staff taking care of the patient. I discussed with the patient yesterday, spoke at length with the patient's family. Since the repeat echo shows decreased LV function and ejection fraction 35%, we will do the MUGA scan to see LV and RV function. Now, we will change metoprolol to Coreg and continue MONCHO inhibitors, gentle diuretics. We will follow with you. Continue baby aspirin and continue Plavix. Yesterday, patient had a blood-tinged sputum which patient states has completely stopped now. We will repeat the blood workup in the morning. Thank you Dr. Sher for providing us the opportunity in taking care of the patient, Mandy Miranda. Trae Henry MD
--- NOTE | 2017-10-05 17:27 | PN ---
DATE: 10/05/2017 SUBJECTIVE: The patient is 72 years old, seen and examined, lying in bed, seems to be comfortable. No chest pain. No shortness of breath. No nausea, vomiting. No diarrhea. Eating and tolerating. PHYSICAL EXAMINATION: VITAL SIGNS: She is afebrile, pulse 96, respiration 29, blood pressure 124/67. LUNGS: Bilateral good airflow, diffusely decreased breath sound at bases posteriorly. HEART: S1 and S2 audible. ABDOMEN: Soft, nontender. No rebound. No guarding. NEUROLOGICAL: The patient is awake, alert, oriented, able to communicate. LABORATORY EXAM: Her blood sugar is 371 and troponin is 9.31. Her micro shows sputum carrying Pseudomonas aeruginosa. Blood cultures are negative. ASSESSMENT: 1. Non-ST elevation myocardial infarction. 2. Chronic obstructive pulmonary disease exacerbation status post cardiac cath, has small vessel disease. 3. Hypertension. 4. Hyperlipidemia. 5. Restless legs syndrome. 6. Chronic obstructive pulmonary disease. 7. Interstitial lung disease. PLAN: The patient is currently on nebulizer treatment. She is on Azactam, continue verapamil 40 mg three times a day, carvedilol 3.125 twice a day, aspirin 81 daily. We will monitor blood sugar. Continue on Lasix, continue on insulin. We will maintain her on meropenem. She is on daily Plavix and Protonix. Currently, she is on 40 mg of prednisone every 12, can cut down by tomorrow because she is not actively wheezing since we are having difficulty monitoring her blood sugar. She can be transferred to remote telemetry since she is hemodynamically stable. Ten Sher MD
--- NOTE | 2017-10-05 20:17 | CARD ---
APPROVED REPORT INDICATION COPD,NSTEMI, EVALUATE LV AND RV EF PROCEDURE The above named patient recieved 25.1 millicuries of Tc99m tagged red blood cells intravenously. After achieving equilibrium, gated imaging of 16/frame/cycle was performed utillizing Gamma camera interfaced with a digital computer and gated device. Gated imaging was then performed in the left anterior oblique, anterior, and the left lateral projections. Findings Left Ventricle: The quality of the study is suboptimal due to limited projections. The left ventricle is within normal limits in size. The right ventricle is normal in size. Wall motion study shows good contractility of the left ventricle. RV wall motion is normal. The right atrium is dynamic.. The remainder of the study is unremarkable. Impressions Normal gated wall motion of left ventricle wall. LVEF = 60%. Normal RV wall motion.
[2017-10-05] MEDS: Insulin Detemir 100 units/ml Vial (Levemir) SC SCH (21:13)
[2017-10-05] MEDS: MethylPREDNISolone 40 mg Vial IV SCH (21:14)
--- NOTE | 2017-10-06 00:18 | PN ---
DATE: 10/05/2017 SUBJECTIVE: The patient is in bed, in no acute distress, was seen early this morning in the ICU 129, bed 5. PHYSICAL EXAMINATION: VITAL SIGNS: Temperature is 98, blood pressure is 109/50, respiratory rate of 22, heart rate of 142 with 86% saturation. HEENT: Unremarkable. NECK: Supple. LUNGS: Have decreased breath sounds. HEART: Normal S1, S2. ABDOMEN: Soft, nontender. LABORATORY EXAMINATION: Reveals a white count of 23,000, hemoglobin of 12. BUN of 32, creatinine of 1.1. Procalcitonin is 0.21. Microbiology reveals Pseudomonas aeruginosa in the sputum and light growth. Sensitivity is pending. ASSESSMENT AND PLAN: This is a 72-year-old female with end-stage chronic obstructive lung disease; interstitial lung disease; pulmonary fibrosis; chronic respiratory failure, on home O2 therapy; diabetes mellitus; hypertension; coronary artery disease, cardiac stent who was recently discharged, now admitted with severe sepsis with Pseudomonas healthcare-associated pneumonia, although the procalcitonin is not elevated and the patient with a [id number] myocardial infarction. Day #2 Zyvox and meropenem. Overall prognosis is quite poor. We will follow with you. Thaddeus Ely MD
[2017-10-06] MEDS: Levalbuterol 1.25 MG/3 ML Inhal Soln UD IH SCH ×4 (01:39→20:20)
[2017-10-06] MEDS: levoFLOXacin 750 mg in D5W 750 MG/150 ML BAG IVPB SCH (02:35)
[2017-10-06 06:09] LABS: ARTERIAL BLOOD GAS HEMOGLOBIN 10.8 g/dL (11.7-17.4); ARTERIAL BLOOD GAS O2 CONTENT 14.7 ML/dl (15-23); ARTERIAL BLOOD GAS O2 SAT 97.7 % (95-98); ARTERIAL BLOOD GAS PCO2 78 mm/Hg (35-45); ARTERIAL BLOOD GAS PH 7.32 (7.35-7.45); ARTERIAL BLOOD GAS TCO2 42.6 mmol.L (22-28)
[2017-10-06 06:13] LABS: ARTERIAL BLOOD GAS HCO3 40.2 mmol/L (21-28)
[2017-10-06 06:19] LABS: GRAN # 17.82 (1.4-6.5); GRAN % 89.7 % (50.0-68.0); HEMOGLOBIN 11.4 g/dL (12.0-16.0); LYMPH # 0.8 (1.2-3.4); LYMPH % 4.1 % (22.0-35.0); MEAN CELL VOLUME 88.1 fl (80.0-105.0); MEAN CORPUSCULAR HEMOGLOBIN 26.1 pg (25.0-35.0); MEAN CORPUSCULAR HGB CONC 29.7 g/dl (31.0-37.0); MONO # 1.2 (0.1-0.6); MONO % 6.2 % (1.0-6.0); RBC 4.36 10^6/uL (3.5-6.1); RED CELL DISTRIBUTION WIDTH 16.1 % (11.5-14.5); WHITE BLOOD COUNT 19.9 10^3/ul (4.5-11.0)
[2017-10-06] MEDS: Pantoprazole 40 mg EC Tab PO SCH (06:48)
[2017-10-06 06:57] LABS: ALB/GLOB RATIO 0.9 (1.1-1.8); ALBUMIN 2.8 g/dL (3.0-4.8)
[2017-10-06] MEDS: Insulin Lispro (humaLOG) MEDIUM Coverage SC SCH (07:09)
[2017-10-06] MEDS: Budesonide 0.5 mg/2 ml Inhal Susp UD IH SCH ×2 (07:11→20:20)
--- NOTE | 2017-10-06 09:01 | PN ---
DATE: 10/06/2017 SUBJECTIVE: The patient is in bed, in no acute distress, was seen earlier, much more comfortable. PHYSICAL EXAMINATION: VITAL SIGNS: Temperature of 97, blood pressure is 120/70, respiratory rate of 16. HEENT: Unremarkable. NECK: Supple. LUNGS: Have decreased breath sounds. HEART: Normal S1, S2. ABDOMEN: Soft, nontender. LABORATORY DATA: Laboratory examination reveals a white count of 19,900, hemoglobin of 11, platelets of 374. Chemistries reveals a BUN of 52, creatinine of 1.1 with Pseudomonas aeruginosa in the sputum with light growth and the patient's procalcitonin is 0.21. The patient has had a chest x-ray this morning, the results are pending. ASSESSMENT AND PLAN: A 72-year-old female with end-stage obstructive lung disease, interstitial lung disease, pulmonary fibrosis, chronic respiratory failure, on home O2 therapy, diabetes mellitus, hypertension, coronary artery disease, cardiac stent, who was recently discharged and now admitted with severe sepsis with Pseudomonas healthcare-associated pneumonia, normal procalcitonin. I do not believe the Pseudomonas is the pathogen, so light growth may be probably a colonizer. The patient also had a non-ST elevation myocardial infarction, day #3 of Zyvox and meropenem and will complete 4 to 7 days. Thaddeus Ely MD
--- NOTE | 2017-10-06 09:12 | CARD ---
APPROVED REPORT EKG Measurement Heart [id number] <Conclusion> Normal sinus rhythm ASMI, age undetermined Marked T wave abnormality, consider inferior ischemia Marked T wave abnormality, consider anterolateral ischemia Prolonged QTc No change
[2017-10-06] MEDS: Meropenem IV 1 gm in NS 50 ML IVPB SCH ×2 (09:30→22:35)
[2017-10-06] MEDS: MethylPREDNISolone 40 mg Vial IV SCH ×2 (10:08→22:34)
[2017-10-06] MEDS: Enoxaparin 30 mg Syringe SC SCH (10:09)
[2017-10-06] MEDS: Linezolid 600 mg in D5W 300 ml 600 MG/300 ML BAG IVPB SCH ×2 (10:10→22:36)
--- NOTE | 2017-10-06 10:18 | RAD ---
HISTORY: Follow-up. COMPARISON: 10/04/2017 and October 05, 2017. FINDINGS: LUNGS: No active pulmonary disease. PLEURA: No significant pleural effusion identified, no pneumothorax apparent. CARDIOVASCULAR: No radiographic findings to suggest acute or significant cardiovascular disease. OSSEOUS STRUCTURES: No significant abnormalities. VISUALIZED UPPER ABDOMEN: Normal. OTHER FINDINGS: None. IMPRESSION: No active disease. Resolution of previously identified infiltrates.
--- NOTE | 2017-10-06 11:49 | PN ---
DATE: 10/06/2017 PULMONARY PROGRESS NOTE SUBJECTIVE: The patient was seen and examined in Intensive Care Unit. I have discussed her condition with the ICU team and advance scout Dr. Hi. The patient seems to be improving with less shortness of breath. We will try to get her out of bed in the chair. In the meantime, she is receiving meropenem, levofloxacin, intravenous steroids and nebulizer treatment with added budesonide. PHYSICAL EXAMINATION: VITAL SIGNS: Her temperature is 97.8, pulse 92, respirations 24, blood pressure 115/58. HEENT: Head, normocephalic and atraumatic. NECK: Supple with no jugular vein distention. CARDIOVASCULAR: S1, S2. No S3, regular. PULMONARY: A few scattered rhonchi, both bases. No wheezing. GI: Soft, nontender. No organomegaly. EXTREMITIES: No pedal edema. No cyanosis. SKIN: Clear with no acute skin rash. NEUROLOGIC: No focal deficits. DATA: Evaluated today's chest x-ray which shows chronic fibrotic changes bilaterally, but no infiltrates. Arterial blood gas was done this morning, her pH is 7.32, pCO2 of 78 and pO2 of 92. ASSESSMENT: 1. Exacerbation of severe chronic obstructive pulmonary disease. 2. Chronic respiratory acidosis. 3. Carbon dioxide retention. 4. Leukocytosis. 5. Mild anemia. PLAN: The patient is making some progress. We will get her out of bed. We will continue intravenous antibiotics as per schedule. I discussed all the above with ICU team. See if her condition is still extremely guarded, but no longer critical. Yossi Granda MD
[2017-10-06] MEDS ORDERED: Sod Polystyrene Sulf 15 gm/60 ml Susp PO ONE (12:12)
[2017-10-06] MEDS ORDERED: Insulin Lispro 1 UNITS/0.01 ML SC ONE (12:15)
--- NOTE | 2017-10-06 13:20 | PN ---
DATE: 10/06/2017 SUBJECTIVE: The patient is 72 years old, seen and examined, lying in bed, seems to be comfortable. No nausea, vomiting or diarrhea. States her breathing is much better. PHYSICAL EXAMINATION: VITAL SIGNS: She is afebrile, pulse 87, respirations 20, blood pressure 116/53. LUNGS: Bilateral fair airflow. No rhonchi or crackle. HEART: S1, S2 audible. ABDOMEN: Soft, nontender. No rebound, no guarding. NEUROLOGICAL: She is awake, alert, oriented, communicative. DATA: Laboratory examination: WBC 19.9, hemoglobin 11.4, hematocrit 38.4, platelets of 374. Chemistry: Sodium 132, potassium 5.3, chloride 89, CO2 38, BUN 52, creatinine 1.1, blood sugar of 360. Her sputum is growing Sphingomonas paucimobilis. X-ray of chest done this morning shows no active disease, resolution of previously identified infiltrate. ASSESSMENT AND PLAN: 1. Non-ST elevation myocardial infarction. 2. Chronic obstructive pulmonary disease exacerbation. 3. Hypertension. 4. Coronary artery disease, status post cardiac cath, non-occlusive disease. 5. Restless legs syndrome. PLAN: Currently, the patient is on Calan SR, she is on Coreg. She is on aspirin. Blood sugar is being monitored. She is on low dose, I will change her coverage to high dose coverage. Since her blood sugar is running high, I will start her on standing orders, insulin before breakfast and dinner since her oral intake is better now. Ten Sher MD
[2017-10-06] MEDS: Insulin Lispro (humaLOG) MIX 75/25(10 ml) SC SCH (17:12)
[2017-10-06] MEDS: Insulin Lispro (HUMAlog) HIGH Coverage SC SCH ×2 (17:12→22:37)
[2017-10-06] MEDS: Insulin Detemir 100 units/ml Vial (Levemir) SC SCH (22:36)
[2017-10-07] MEDS: Levalbuterol 1.25 MG/3 ML Inhal Soln UD IH SCH ×5 (01:20→20:54)
[2017-10-07] MEDS: Pantoprazole 40 mg EC Tab PO SCH (06:57)
[2017-10-07] MEDS: Budesonide 0.5 mg/2 ml Inhal Susp UD IH SCH ×2 (07:46→20:54)
[2017-10-07] MEDS: Insulin Lispro (HUMAlog) HIGH Coverage SC SCH ×4 (08:26→21:32)
[2017-10-07] MEDS: Insulin Lispro (humaLOG) MIX 75/25(10 ml) SC SCH ×2 (08:30→17:33)
--- NOTE | 2017-10-07 09:46 | PN ---
DATE: 10/07/2017 HISTORY OF PRESENT ILLNESS: The patient is a 72-year-old female, admitted into the ICU with shortness of breath, COPD exacerbation. She had leukocytosis. On admission, white count was 26,000. Leukocytosis declined to 19,000 today. She was admitted. She was treated with IV antibiotic nebulizer. Shortness of breath has improved markedly. She has diabetes mellitus, uncontrolled with current medications. She also has anemia. Denies any complaints overnight. Chest x-ray showed fibrotic changes bilaterally. No infiltrates. No chest pain. She also underwent cardiac catheterization during this hospital. There are nonobstructive coronary arteries. PAST MEDICAL HISTORY: Diabetes mellitus type 2, history of acute renal failure, COPD, hepatitis B. PAST SURGICAL HISTORY: Hysterectomy. ALLERGIES: IODINE, PENICILLIN, AMBIEN, DAYPRO. PERSONAL HISTORY: Former smoker. No history of alcohol abuse. FAMILY HISTORY: Noncontributory, mother and father. SOCIAL HISTORY: Lives at home. CURRENT MEDICATIONS: Tylenol 650 every 4 hours p.r.n., allopurinol 300 mg daily, Xanax 0.25 mg p.o. t.i.d. p.r.n., aspirin 81 mg daily, Lipitor 20 mg daily, Pulmicort inhalation, Coreg 3.125 mg p.o. b.i.d., Plavix 75 mg daily, Lovenox 30 mg subcu daily, Lasix 40 mg daily, Neurontin 200 mg p.o. t.i.d., insulin Levemir and sliding-scale insulin, Imdur 60 daily, levofloxacin 750 daily, Zyvox daily, lisinopril 2.5 daily, meropenem daily, Solu-Medrol 30 every 12, Protonix 40 daily, verapamil 40 mg t.i.d., prednisone 10 mg p.o. b.i.d. PHYSICAL EXAMINATION: GENERAL: Comfortable in bed, in no acute distress. VITAL SIGNS: Temperature 98.8, heart rate 85 per minute, blood pressure 110/52, respiratory rate 20 per minute, oxygen saturation 100% on room air. HEENT: Pallor positive. NECK: No lymphadenopathy. CHEST: Air entry present and equal bilateral. Occasional rhonchi and occasional crepitation. CARDIOVASCULAR: S1, S2 normal. No murmur. No gallop. ABDOMEN: Soft, nontender. No hepatosplenomegaly. EXTREMITY: No edema. SKIN: Warm. No petechiae. No rash. SPINE: Nontender. MOLDER LABELS: No focal sensorimotor deficits. Alert and oriented x3. LABORATORY DATA: White count 19.9, hemoglobin 11.4, hematocrit 38.4, platelet 374. Sodium 132, potassium 5.3, creatinine 1.1. Glucose 390s, 462. LFTs within normal limit. ASSESSMENT: 1. Chronic obstructive pulmonary disease exacerbation. 2. Xnu-AC-vkzhszymi myocardial infarction. 3. Uncontrolled diabetes mellitus. 4. Leukocytosis. 5. Anemia. PLAN: Leukocytosis is improving. Anemia, hemoglobin stable at 11.4. She is currently on Solu-Medrol. Pulmonary consult appreciated. Note reviewed. Currently on IV antibiotics. Continue cardiac meds, Plavix, Coreg. DVT prophylaxis with Lovenox. To continue Lasix 40 mg daily orally. We will discontinue prednisone tablet 10 mg p.o. b.i.d. She is on Solu-Medrol 30 mg p.o. every 12. Jazz Klein MD
[2017-10-07] MEDS: Meropenem IV 1 gm in NS 50 ML IVPB SCH ×2 (10:21→21:34)
[2017-10-07] MEDS: Enoxaparin 30 mg Syringe SC SCH (10:21)
[2017-10-07] MEDS: MethylPREDNISolone 40 mg Vial IV SCH ×2 (10:21→21:32)
--- NOTE | 2017-10-07 12:00 | PN ---
DATE: 10/07/2017 SUBJECTIVE: The patient is in bed, in no acute distress and nontoxic. The patient was seen early this morning in 262, bed 1. No fevers and chills. PHYSICAL EXAMINATION: VITAL SIGNS: On exam, temperature is 98, blood pressure is 110/50, respiratory rate of 18. HEENT: Examination of HEENT is unremarkable. NECK: Supple. LUNGS: Have decreased breath sounds. HEART: Normal S1, S2. ABDOMEN: Soft, nontender. LABORATORY DATA: Laboratory examination reveals a white count of 19,900, hemoglobin 11, platelets of 374. Chemistries reveals a BUN of 52, creatinine of 1.1 and procalcitonin is noted to be 0.21. Microbiology reveals the patient's sputum has Sphingomonas paucimobilis growing. The blood cultures are no growth. Nasal MRSA screening is negative. the Sphingomonas is sensitive to cefepime, intermediate to piperacillin and tazobactam. Dr. Sher's note is reviewed. Dr. Yossi Granda's note is reviewed from yesterday. ASSESSMENT AND PLAN: A 72-year-old with end-stage obstructive lung disease, interstitial lung disease, pulmonary fibrosis, chronic respiratory failure, home O2 therapy, diabetes mellitus, hypertension, coronary artery disease, cardiac stents, recently discharged, admitted with severe sepsis with Pseudomonas healthcare-associated pneumonia, normal procalcitonin. The patient had Pseudomonas in the last admission, now with Sphingomonas. Today is day #4 of on meropenem and Zyvox. We will discontinue Zyvox and complete with 4-7 days of meropenem, today is day #4. Primary problem with this patient is her end-stage lung disease and pulmonary fibrosis. Thaddeus Ely MD
--- NOTE | 2017-10-07 12:31 | PN ---
DATE: 10/07/2017 PULMONARY PROGRESS NOTE SUBJECTIVE: The patient was seen and examined at bedside on Telemetry. She is out of Intensive Care Unit. She states her breathing has improved. She is on nasal cannula. PHYSICAL EXAMINATION: VITAL SIGNS: Her oxygen saturation is 100% on nasal cannula, respirations 20, pulse 85, temperature 98, blood pressure is 110/52. HEAD, EARS, NOSE, AND THROAT: Within normal limits. NECK: Supple with no jugular vein distentions. CHEST: Symmetrical. LUNGS: Bilateral coarse rhonchi and some expiratory wheezes. CARDIOVASCULAR: S1, S2. No S3. Regular. GASTROINTESTINAL: Soft, nontender. No organomegaly. EXTREMITIES: No pedal edema. No cyanosis. SKIN: Clear with no acute skin rash. NEUROLOGIC: No focal deficits. LABORATORY DATA: There is no new lab to review. Data evaluated: Yesterday's chest x-ray is reported by me, fibrotic changes, no acute infiltrates and her yesterday's ABG showed pH of 7.32, pCO2 of 78, and pO2 of 92. ASSESSMENT: 1. Exacerbation of severe chronic obstructive pulmonary disease. 2. Chronic respiratory acidosis. 3. Carbon dioxide retention. 4. Leukocytosis, possibly induced by steroids. PLAN: The patient continues to make progress. She is out of Intensive Care Unit. She is sitting up in bed. No distress, on nasal cannula. Her yesterday's blood gas showed mostly compensated respiratory acidosis. We will continue with current intervention with complex nebulizer as well as intravenous therapy. Yossi Granda MD
[2017-10-07] MEDS: Insulin Detemir 100 units/ml Vial (Levemir) SC SCH (21:33)
[2017-10-07 21:53] LABS: URINE BILIRUBIN NEGATIVE (NEGATIVE); URINE BLOOD NEGATIVE (NEGATIVE); URINE GLUCOSE (UA) >=1000 mg/dL (NEGATIVE); URINE LEUKOCYTE ESTERASE NEGATIVE Leu/uL (NEGATIVE); URINE PROTEIN TRACE mg/dL (<30 mg/dL); URINE UROBILINOGEN 0.2 E.U./dL (<1 E.U./dL)
[2017-10-07 22:08] LABS: URINE APPEARANCE CLEAR (CLEAR); URINE COLOR YELLOW (YELLOW)
[2017-10-07 22:09] LABS: URINE BACTERIA FEW (NEG); URINE RBC NEGATIVE /hpf (0-2)
[2017-10-07 23:34] VITALS: RESP 20
[2017-10-08] MEDS: Levalbuterol 1.25 MG/3 ML Inhal Soln UD IH SCH ×3 (01:59→13:37)
[2017-10-08] MEDS: Pantoprazole 40 mg EC Tab PO SCH (05:29)
[2017-10-08 06:01] VITALS: O2SAT 97
[2017-10-08] MEDS: Budesonide 0.5 mg/2 ml Inhal Susp UD IH SCH (07:48)
[2017-10-08] MEDS: levoFLOXacin 750 mg in D5W 750 MG/150 ML BAG IVPB SCH (07:56)
[2017-10-08] MEDS: Insulin Lispro (HUMAlog) HIGH Coverage SC SCH ×2 (08:20→11:41)
[2017-10-08] MEDS: Insulin Lispro (humaLOG) MIX 75/25(10 ml) SC SCH (08:28)
[2017-10-08] MEDS: Meropenem IV 1 gm in NS 50 ML IVPB SCH (09:00)
[2017-10-08] MEDS: Enoxaparin 30 mg Syringe SC SCH (09:03)
--- NOTE | 2017-10-08 09:15 | PN ---
DATE: 10/08/2017 PULMONARY PROGRESS NOTE SUBJECTIVE: The patient is somewhat improved. She is on telemetry with no significant problems. Breathing is intermittent. She usually gets anxious and started complaining of dyspnea, but there is no real change in her objective findings. She remains on oxygen therapy continuously. PHYSICAL EXAMINATION: VITAL SIGNS: Remain stable, she is afebrile, heart rate 86, respiratory rate 18, temperature 98.6, blood pressure 110/70, O2 sat changes between 85% and 92%. HEENT: Normocephalic, atraumatic. NECK: Supple. No JVD. No lymphadenopathy. CHEST: Bilateral rhonchi. Occasional wheezes, which are not present today. Lungs are clear today than I think. CARDIOVASCULAR: Regular rhythm. S1, S2 without murmur, gallop or rub. ABDOMEN: Soft. Bowel sounds normoactive without mass, guarding, rebound, organomegaly. EXTREMITIES: Reveal no clubbing or cyanosis. There is trace edema. SKIN: No rash or excoriation. NEUROLOGIC: No focal findings. LABORATORY DATA: No new chest x-ray has been done. We will repeat. There is nothing acute on the previous x-rays. I have reviewed the previous blood gas and the patient has chronic CO2 retention and hypoxemia. ASSESSMENT: 1. Exacerbation of chronic obstructive pulmonary disease. 2. Chronic respiratory acidosis. 3. Carbon dioxide retention. 4. Abnormal chest x-ray. PLAN: Must keep nurses from increasing the O2 concentration due to the patient's symptoms of dyspnea. She has very borderline status regarding CO2 retention and increased oxygen. We will turn off her drive to breathe causing the CO2 retention and the need for mechanical ventilation. We have coached the patient to breathe slowly with pursed lip breathing and trying to relax. She is more relaxed now than in the past. She is able to carry a full conversation and appears to be comfortable. We will reevaluate later today and make sure that there is no decompensation. She will be monitored closely. Thank you, we will follow closely with you and decide on the need for further intervention as required. Her overall prognosis is extremely guarded. Mk Chamberlain MD [facility] # [id number]
[2017-10-08] MEDS ORDERED: MethylPREDNISolone 40 mg Vial IVP SCH (10:00)
[2017-10-08 11:37] VITALS: BP 119/58; PULSE 81; TEMP 98.3
--- NOTE | 2017-10-08 13:24 | PN ---
DATE: 10/08/2017 SUBJECTIVE: The patient is a 72-year-old, seen and examined, complained of shortness of breath. No chest pain. Still has cough. She states she has difficulty expectorating. No chest pain, no hemoptysis, no hematemesis. PHYSICAL EXAMINATION: VITAL SIGNS: She is afebrile, pulse 81, respiration 20, blood pressure 119/58. LUNGS: Bilateral few expiratory rhonchi. HEART: S1 and S2 audible. ABDOMEN: Soft, nontender. No rebound, no guarding. NEUROLOGIC: The patient is awake, alert, oriented, communicative. EXTREMITIES: Bilateral legs, +1 edema. ASSESSMENT: 1. Status post lmy-WA-udizxbked myocardial infarction. 2. Chronic obstructive pulmonary disease exacerbation. 3. Asthmatic bronchitis. 4. Coronary artery disease. 5. Insulin-dependent diabetes. 6. Hypertension. 7. Restless legs syndrome. PLAN: Currently, the patient is on verapamil, we will continue that. She is on Coreg, aspirin. We will monitor her blood sugar. She is on IV Levaquin, we will continue that. She is also on meropenem. I will request her TCU evaluation. If accepted, can be transferred to TCU in the morning. Ten Sher MD
--- NOTE | 2017-10-08 15:39 | CP.PCM.PN ---
Subjective - Date & Time of Evaluation Date of Evaluation: 10/08/17 Time of Evaluation: 08:35 - Subjective Subjective: Comfortable in bed, not in distress, no fevers, cough is a little less. Objective - Vital Signs/Intake and Output Vital Signs (last 24 hours): Temp Pulse Resp BP Pulse Ox 98.1 F 83 20 135/71 97 10/08/17 06:00 10/08/17 06:00 10/08/17 06:00 10/08/17 06:00 10/08/17 06:00 Intake and Output: 10/08/17 10/08/17 06:59 18:59 Intake Total 480 Output Total 1300 Balance -820 - Medications Medications: Current Medications Acetaminophen (Tylenol 325mg Tab) 650 mg PO Q4H PRN PRN Reason: Pain, Mild (1-3) Acetaminophen (Tylenol 325mg Tab) 650 mg PO Q4 PRN PRN Reason: Fever >100.4 F Allopurinol (Zyloprim) 300 mg PO DAILY [facility] Last Admin: 10/07/17 10:03 Dose: Not Given Alprazolam (Xanax) 0.25 mg PO TID PRN; Protocol PRN Reason: Anxiety Stop: 10/11/17 04:52 Last Admin: 10/07/17 21:32 Dose: 0.25 mg Aspirin (Ecotrin) 81 mg PO DAILY [facility] Last Admin: 10/07/17 10:20 Dose: 81 mg Atorvastatin Calcium (Lipitor) 20 mg PO DAILY [facility] Last Admin: 10/07/17 10:21 Dose: 20 mg Benzocaine/Menthol (Cepacol Sore Throat) 1 jack MT Q2H PRN PRN Reason: Sore Throat Last Admin: 10/05/17 05:51 Dose: 1 jack Budesonide (Pulmicort Respules) 0.5 mg IH [id number] [facility] Last Admin: 10/08/17 07:48 Dose: Not Given Carvedilol (Coreg) 3.125 mg PO BID [facility] Last Admin: 10/07/17 17:32 Dose: 3.125 mg Clopidogrel Bisulfate (Plavix) 75 mg PO DAILY [facility] Last Admin: 10/07/17 10:00 Dose: 75 mg Enoxaparin Sodium (Lovenox) 30 mg SC DAILY [facility] PRN Reason: Protocol Last Admin: 10/07/17 10:21 Dose: 30 mg Furosemide (Lasix) 40 mg PO DAILY [facility] Last Admin: 10/07/17 10:21 Dose: 40 mg Gabapentin (Neurontin) 200 mg PO TID [facility] PRN Reason: Protocol Last Admin: 10/07/17 17:32 Dose: 200 mg Levofloxacin/Dextrose (Levaquin 750mg) 750 mg in 150 mls @ 100 mls/hr IVPB Q48H [facility] PRN Reason: Protocol Last Admin: 10/08/17 07:56 Dose: 100 mls/hr Meropenem (Merrem Iv 1 Gm Premix) 50 mls @ 100 mls/hr IVPB Q12 [facility] PRN Reason: Protocol Stop: 10/13/17 10:37 Last Admin: 10/07/17 21:34 Dose: 100 mls/hr Insulin Detemir (Levemir) 25 unit SC HS [facility] Last Admin: 10/07/17 21:33 Dose: 25 units Insulin Human Lispro (Humalog High) 0 units SC ACHS [facility] PRN Reason: Protocol Last Admin: 10/07/17 21:32 Dose: 3 units Insulin Lispro Protam/Lispro Human (Humalog Mix 75/25) 15 units SC ACBD [facility] Last Admin: 10/07/17 17:33 Dose: 15 units Isosorbide Mononitrate (Imdur) 60 mg PO DAILY [facility] Last Admin: 10/07/17 10:02 Dose: Not Given Levalbuterol HCl (Xopenex) 1.25 mg IH [id number] [facility] Last Admin: 10/08/17 07:48 Dose: 1.25 mg Lisinopril (Zestril) 2.5 mg PO DAILY [facility] Last Admin: 10/07/17 10:00 Dose: Not Given Methylprednisolone (Solu-Medrol) 30 mg IV Q12 [facility] Last Admin: 10/07/17 21:32 Dose: 30 mg Pantoprazole Sodium (Protonix Ec Tab) 40 mg PO 0600 [facility] Last Admin: 10/08/17 05:29 Dose: 40 mg Ropinirole HCl (Requip) 3 mg PO HS [facility] Last Admin: 10/07/17 23:36 Dose: 3 mg Verapamil HCl (Calan Tab) 40 mg PO TID [facility] Last Admin: 10/07/17 15:02 Dose: Not Given - Labs Labs: 10/06/17 05:30 10/06/17 05:30 - Constitutional Appears: Non-toxic, Chronically Ill - Head Exam Head Exam: NORMAL INSPECTION - ENT Exam ENT Exam: Mucous Membranes Moist - Neck Exam Neck Exam: absent: Meningismus - Respiratory Exam Respiratory Exam: Decreased Breath Sounds - Cardiovascular Exam Cardiovascular Exam: +S1, +S2 - GI/Abdominal Exam GI & Abdominal Exam: Soft. absent: Tenderness Assessment and Plan - Assessment and Plan (Free Text) Plan: assessment severe sepsis from Sphingomonas HCAP history of multifocal community-acquired pneumonia end-stage chronic obstructive pulmonary disease with a history of pulmonary nodules diabetes mellitus coronary artery disease S/P cardiac catheterization and placement of cardiac stents hypertension Questionable history of penicillin allergy (rash) and Doxycycline (although she has tolerated doxycycline in past admissions) Plan continue Merrem day 5 of 7 days and will continue to monitor clinically overall prognosis is poor
--- NOTE | 2017-10-08 15:41 | PN ---
DATE: 10/08/2017 REASON FOR CONSULTATION AND FOLLOWUP: [id number]-CL-[id number] myocardial infarction, acute exacerbation COPD, status post cardiac catheterization, small vessel disease, medical treatment. SUBJECTIVE: Patient denies any chest pain, shortness of breath, or any palpitation. Feels a lot better. OBJECTIVE: GENERAL: Not in apparent distress. VITAL SIGNS: Temperature afebrile, heart rate 81, and blood pressure 119/58. HEENT: PERRLA. Extraocular muscles intact. NECK: Supple. No carotid bruits or thyromegaly. CHEST: Clear to auscultation. HEART: S1 and S2, regular. ABDOMEN: Soft. EXTREMITIES: Clubbing and cyanosis negative. LABORATORY DATA: Blood workup as follows: WBC 19.9, hemoglobin 11.4, hematocrit 38.4, and platelet count 374. Chemistry showed sodium 132, potassium 5.3, chloride 89, carbon dioxide 38, anion gap of 11, BUN 52, creatinine 1.1 as of 08/06/2017. IMPRESSION: Acute exacerbation of chronic obstructive pulmonary disease; ket-WA-vmmamiy elevation myocardial infarction,possibly secondary to hemodynamic instability and hypoxemia. Severe chronic obstructive pulmonary disease, on home oxygen. Coronary artery disease, status post multiple stent, status post cardiac catheterization. Small vessel disease. Patent stents in major epicardial coronary arteries; left anterior descending, circumflex, and right coronary artery. Decreased left ventricular function by echocardiogram and by catheterization. Repeat MUGA scan done, which shows ejection fraction of 60%. RECOMMENDATION: Continue verapamil p.o. t.i.d., control the heart rate. Continue Coreg 3.125 mg daily, continue isosorbide nitrate, continue Lasix p.o. daily, continue insulin, continue DVT prophylaxis, continue Plavix. Repeat the blood workup in the morning. Discontinue telemetry. Discussed with the patient. Discussed with the patient's staff. Thank you, Dr. Sher, for providing us the opportunity in taking care of the patient, Mandy Miranda. Trae Henry MD
== END 2017-10-08 16:07 | DRG 871 ==
LOC: ED 23:06 → ERH 10-04 03:07 → CCU 10-04 06:17 → 2RNO 10-06 11:55
PROVIDERS: ADMIT Internal Medicine; ATTEND Internal Medicine
PROC: 4A023N7 Measurement of Cardiac Sampling and Pressure, Left Heart, Percutaneous Approach (ICD-10-PCS; principal; 2017-10-04)
PROC: B2151ZZ Fluoroscopy of Left Heart using Low Osmolar Contrast (ICD-10-PCS; 2017-10-04)
PROC: B2111ZZ Fluoroscopy of Multiple Coronary Arteries using Low Osmolar Contrast (ICD-10-PCS; 2017-10-04)
DX: A41.52 Sepsis due to Pseudomonas (principal); J18.9 Pneumonia, unspecified organism; I21.4 Non-ST elevation (NSTEMI) myocardial infarction; J96.21 Acute and chronic respiratory failure with hypoxia; J44.0 Chronic obstructive pulmonary disease with (acute) lower respiratory infection; J44.1 Chronic obstructive pulmonary disease with (acute) exacerbation; E87.2 Acidosis; I25.110 Atherosclerotic heart disease of native coronary artery with unstable angina pectoris; R65.20 Severe sepsis without septic shock; J84.10 Pulmonary fibrosis, unspecified; J98.4 Other disorders of lung; Y95 Nosocomial condition; Z79.4 Long term (current) use of insulin; I50.9 Heart failure, unspecified; I27.20 Pulmonary hypertension, unspecified; I25.5 Ischemic cardiomyopathy; D64.9 Anemia, unspecified; E11.51 Type 2 diabetes mellitus with diabetic peripheral angiopathy without gangrene; E11.65 Type 2 diabetes mellitus with hyperglycemia; E78.5 Hyperlipidemia, unspecified; G25.81 Restless legs syndrome; I11.0 Hypertensive heart disease with heart failure; Z87.01 Personal history of pneumonia (recurrent); Z87.11 Personal history of peptic ulcer disease; Z87.891 Personal history of nicotine dependence; Z88.0 Allergy status to penicillin; Z90.710 Acquired absence of both cervix and uterus; Z95.5 Presence of coronary angioplasty implant and graft; Z99.81 Dependence on supplemental oxygen; H26.9 Unspecified cataract; Z88.8 Allergy status to other drugs, medicaments and biological substances; Z91.013 Allergy to seafood; Z87.892 Personal history of anaphylaxis; R40.2412 Glasgow coma scale score 13-15, at arrival to emergency department

== ENCOUNTER 2017-10-08 16:07 | Inpatient (IN) | payer OTHER, MEDICAID ==
[2017-10-08] MEDS ORDERED: Benzocaine/Menthol (Cepacol) Lozenge MT PRN (17:42)
[2017-10-08] MEDS: Insulin Lispro (HUMAlog) HIGH Coverage SC SCH ×2 (18:12→21:51)
[2017-10-08] MEDS ORDERED: Arformoterol 15 mcg/2 ml Inh Sol IH SCH (20:00)
[2017-10-08] MEDS: Budesonide 0.5 mg/2 ml Inhal Susp UD IH SCH (20:37)
[2017-10-08 20:57] VITALS: BMI 26.1
[2017-10-08] MEDS ORDERED: Pneumococcal 23-Valent Vaccine IM ONE (20:57)
[2017-10-08] MEDS: Insulin Detemir 100 units/ml Vial (Levemir) SC SCH (21:52)
[2017-10-08] MEDS: MethylPREDNISolone 40 mg Vial IVP SCH (21:54)
[2017-10-09] MEDS: Pantoprazole 40 mg EC Tab PO SCH (05:40)
[2017-10-09] MEDS ORDERED: levoFLOXacin 750 mg in D5W 750 MG/150 ML BAG IVPB SCH (06:00)
[2017-10-09] MEDS: Insulin Lispro (HUMAlog) HIGH Coverage SC SCH ×4 (06:55→21:26)
[2017-10-09] MEDS: Insulin Lispro (humaLOG) MIX 75/25(10 ml) SC SCH ×2 (07:24→17:18)
[2017-10-09] MEDS: Arformoterol 15 mcg/2 ml Inh Sol IH SCH ×2 (08:21→20:35)
[2017-10-09] MEDS: Budesonide 0.5 mg/2 ml Inhal Susp UD IH SCH ×2 (08:22→20:35)
[2017-10-09] MEDS: Enoxaparin 30 mg Syringe SC SCH (09:18)
[2017-10-09] MEDS: MethylPREDNISolone 40 mg Vial IVP SCH ×2 (09:19→21:24)
--- NOTE | 2017-10-09 10:50 | CP.PCM.CON ---
History of Present Illness - History of Present Illness History of Present Illness: 72 year old female with PMH of end-stage chronic obstructive pulmonary disease with a history of pulmonary nodules , diabetes mellitus, coronary artery disease S/P cardiac catheterization and placement of cardiac stents, hypertension was initially admitted in [facility] because of shortness of breath and cough and was found to have sepsis from HCAP, with Sphingomonas growing from the sputum. She has been doing well with acute care treatment and is now transferred to [facility] for continued medical treatment and physical therapy. Infectious Diseases consult is requested to continue antibiotics. Currently she is comfortable in bed, still with some shortness of breath at rest but feels better and is coughing less, no fever or chills, no nausea or vomiting, no chest pain, no headache or dizziness, no sore throat, no rhinorrhea, no abdominal pain, no bleeding, no diarrhea, no dysuria. Review of Systems - Review of Systems All systems: reviewed and no additional remarkable complaints except (as per HPI ) Past Patient History - Infectious Disease Hx of Infectious Diseases: None - Tetanus Immunizations Tetanus Immunization: Unknown - Past Medical History & Family History Past Medical History?: Yes - Past Social History Smoking Status: Former Smoker - CARDIAC Hx Cardiac Disorders: Yes (CAD) Hx Hypertension: Yes - PULMONARY Hx Respiratory Disorders: Yes Hx Chronic Obstructive Pulmonary Disease (COPD): Yes - NEUROLOGICAL Hx Neurological Disorder: No - HEENT Hx HEENT Problems: Yes Hx Cataracts: Yes - RENAL Hx Chronic Kidney Disease: Yes Hx Renal Failure: Yes - ENDOCRINE/METABOLIC Hx Endocrine Disorders: Yes Hx Diabetes Mellitus Type 2: Yes - HEMATOLOGICAL/ONCOLOGICAL Hx Blood Disorders: Yes Hx Hepatitis B: Yes - INTEGUMENTARY Hx Dermatological Problems: Yes - MUSCULOSKELETAL/RHEUMATOLOGICAL Hx Falls: No - GASTROINTESTINAL Hx Gastrointestinal Disorders: No (VENTRAL HERNIA) - GENITOURINARY/GYNECOLOGICAL Hx Genitourinary Disorders: No Hx Reproductive Disorders: No - PSYCHIATRIC Hx Psychophysiologic Disorder: Yes Hx Anxiety: Yes Hx Substance Use: No - SURGICAL HISTORY Hx Coronary Stent: Yes (X9) Hx Hysterectomy: Yes (partial) - ANESTHESIA Hx Anesthesia Reactions: No Hx Malignant Hyperthermia: No Meds Allergies/Adverse Reactions: Allergies Allergy/AdvReac Type Severity Reaction Status Date / Time FISH Allergy Severe THROAT Verified 10/08/17 19:03 SWELLING iodine Allergy RASH Verified 10/08/17 19:03 oxaprozin [From Daypro] Allergy RASH Verified 10/08/17 19:03 Penicillins Allergy ANAPHYLAXIS Verified 10/08/17 19:03 zolpidem [From Ambien] AdvReac Intermediate FATIGUE Verified 10/08/17 19:03 - Medications Medications: Current Medications Acetaminophen (Tylenol 325mg Tab) 650 mg PO Q4H PRN; Protocol PRN Reason: Pain, Mild (1-3), FEVER >100.4 Allopurinol (Zyloprim) 300 mg PO DAILY [facility] PRN Reason: Protocol Alprazolam (Xanax) 0.25 mg PO TID PRN; Protocol PRN Reason: Anxiety Stop: 10/15/17 18:01 Arformoterol Tartrate (Brovana) 15 mcg IH [id number] [facility] Aspirin (Ecotrin) 81 mg PO 0800 [facility] PRN Reason: Protocol Atorvastatin Calcium (Lipitor) 20 mg PO DIN [facility] PRN Reason: Protocol Last Admin: 10/08/17 18:16 Dose: 20 mg Benzocaine/Menthol (Cepacol Sore Throat) 1 jack MT Q2H PRN; Protocol PRN Reason: Sore Throat Budesonide (Pulmicort Respules) 0.5 mg IH [id number] [facility] PRN Reason: Protocol Last Admin: 10/08/17 20:37 Dose: Not Given Carvedilol (Coreg) 3.125 mg PO 0800,1800 [facility] PRN Reason: Protocol Last Admin: 10/08/17 18:13 Dose: 3.125 mg Clopidogrel Bisulfate (Plavix) 75 mg PO DAILY [facility] PRN Reason: Protocol Enoxaparin Sodium (Lovenox) 30 mg SC DAILY [facility] PRN Reason: Protocol Furosemide (Lasix) 40 mg PO DAILY [facility] PRN Reason: Protocol Gabapentin (Neurontin) 200 mg PO TID [facility] PRN Reason: Protocol Last Admin: 10/08/17 18:13 Dose: 200 mg Levofloxacin/Dextrose (Levaquin 750mg) 750 mg in 150 mls @ 100 mls/hr IVPB Q48H [facility] PRN Reason: Protocol Stop: 10/15/17 07:29 Meropenem 1,000 mg/ Sodium (Chloride) 50 mls @ 100 mls/hr IVPB 0600,1800 [facility] PRN Reason: Protocol Stop: 10/11/17 18:29 Insulin Detemir (Levemir) 25 unit SC HS [facility] PRN Reason: Protocol Last Admin: 10/08/17 21:52 Dose: 25 unit Insulin Human Lispro (Humalog High) 0 units SC ACHS [facility] PRN Reason: Protocol Last Admin: 10/08/17 21:51 Dose: Not Given Insulin Lispro Protam/Lispro Human (Humalog Mix 75/25) 15 units SC ACBD [facility] PRN Reason: Protocol Isosorbide Mononitrate (Imdur) 60 mg PO 0600 [facility] PRN Reason: Protocol Levalbuterol HCl (Xopenex) 1.25 mg IH [id number] PRN; Protocol PRN Reason: Shortness of Breath Lisinopril (Zestril) 2.5 mg PO DAILY [facility] PRN Reason: Protocol Methylprednisolone (Solu-Medrol) 30 mg IVP Q12 [facility] PRN Reason: Protocol Last Admin: 10/08/17 21:54 Dose: 30 mg Pantoprazole Sodium (Protonix Ec Tab) 40 mg PO 0600 [facility] PRN Reason: Protocol Ropinirole HCl (Requip) 3 mg PO HS [facility] PRN Reason: Protocol Verapamil HCl (Calan Tab) 40 mg PO TID [facility] PRN Reason: Protocol Last Admin: 10/08/17 18:13 Dose: 40 mg Physical Exam - Constitutional Appears: Chronically Ill - Head Exam Head Exam: NORMAL INSPECTION - Neck Exam Neck exam: Negative for: Meningismus - Respiratory Exam Respiratory Exam: Decreased Breath Sounds - Cardiovascular Exam Cardiovascular Exam: +S1, +S2 - GI/Abdominal Exam GI & Abdominal Exam: Soft. absent: Tenderness Results - Vital Signs Recent Vital Signs: Last Vital Signs Temp 98 F 10/08/17 20:47 Pulse 88 10/08/17 22:53 Resp 20 10/08/17 20:47 BP 124/61 10/08/17 20:47 Pulse Ox - Labs Labs: Laboratory Results - last 24 hr 10/08/17 21:40 POC Glucose (mg/dL) 274 H Assessment & Plan - Assessment and Plan (Free Text) Plan: assessment severe sepsis from Sphingomonas HCAP, slowly improving clinically history of multifocal community-acquired pneumonia end-stage chronic obstructive pulmonary disease with a history of pulmonary nodules diabetes mellitus coronary artery disease S/P cardiac catheterization and placement of cardiac stents hypertension Questionable history of penicillin allergy (rash) and Doxycycline (although she has tolerated doxycycline in past admissions) Plan continue Merrem day 6 of 7 days and Levaquin and will continue to monitor clinically overall prognosis is poor
[2017-10-09] MEDS: Tiotropium 18 mcg Cap For Inhalation IH SCH (12:13)
[2017-10-09] MEDS: Levalbuterol 1.25 MG/3 ML Inhal Soln UD IH PRN ×2 (13:08→19:47)
--- NOTE | 2017-10-09 14:40 | PN ---
DATE: 10/09/2017 PULMONARY PROGRESS NOTE SUBJECTIVE: Mandy Miranda was transferred from to step-down unit yesterday for further physical therapy and antibiotic care. The patient is doing better. Her anxiety is the major problem. Last night, she refused to use BiPAP because of anxiety. Her anxiety in general is her major downfall. She is comfortable this morning and has no respiratory distress at rest. MEDICATIONS: She remains on budesonide, Lasix, Levoxin,levalbuterol, for some reason the Spiriva was not restarted and needs to be restarted. PHYSICAL EXAMINATION VITAL SIGNS: Stable. She remains afebrile. Blood pressure 140/70, pulse ox 97%, heart rate 80. NECK: Supple. There is no jugular venous distention. CHEST: Scattered rhonchi throughout both lung willis. No wheezing is appreciated. HEART: Regular rhythm, S1, S2 without murmur, gallop, or rub. ABDOMEN: Soft. Bowel sounds normoactive without mass, guarding, rebound, or organomegaly. EXTREMITIES: Reveal no clubbing, cyanosis, or edema. NEUROLOGIC: Reveals no focal findings. LABORATORY DATA: Chest x-ray shows chronic changes, no acute infiltrates. ASSESSMENT: Chronic obstructive pulmonary disease, pneumonia, coronary artery disease with a possible myocardial infarction. The patient is stable from a pulmonary point of view at this time. Please note, however, that she is in very guarded condition. Her situation is borderline. Her blood gases are in what we described as the 50/50 with a pCO2 and pO2 both elevated of almost equal amounts. She is stable at this time, although the long-term prognosis remains extremely guarded. Her anxiety is getting in the way of her general status and she should be seen by Psychiatry to further treat her anxiety. This is making her situation worse, it does not mean that it is causing these problems, but many of her respiratory problems are made worse by her anxiety over the situation. PLAN: I will continue antibiotics as per ID. Continue evaluation by Cardiology. Continue bronchodilators, restart Spiriva. Continue physical therapy as permitted, ambulation if possible. We will follow closely with her. We would decrease the corticosteroids slowly in the next 24-48 hours. Decide on the need for further intervention based on her clinical status. Thank you for the opportunity to see Mandy once again. Mk Chamberlain MD [facility] # [id number] [place]AM[place]
--- NOTE | 2017-10-09 18:22 | CON ---
DATE: REASON FOR THE CONSULTATION: Continuity of care in Transitional Care Unit, coronary artery disease as well as non-STEMI, status post acute exacerbation of COPD. BRIEF CLINICAL HISTORY: This is a 72-year-old female with past medical history significant for multiple PTCA who was initially admitted on 10/03/2017 with acute exacerbation of COPD and positive troponin. Subsequently, the patient underwent cardiac catheterization. Medical treatment is recommended. Now, the patient is transferred to Transitional Care Unit for the continuity of care. Denies any chest pain, shortness of breath or any palpitation. PAST MEDICAL HISTORY: Significant for COPD, home oxygen with advanced COPD, multiple PTCAs in the past who initially admitted with non-STEMI. First troponin was 0.6 and the repeat troponin is 11.6, so the patient underwent cardiac catheterization that revealed nonobstructive coronary artery disease, medical treatment recommended a small vessel disease. Recent cardiac workup as follows: The patient had a cardiac catheterization done dated 10/04/2017 that revealed nonobstructive coronary artery disease, small vessel CAD, mildly decreased LV ejection fraction 45%, EDP was in the range of 20, patent previously placed stent in LAD, circumflex and RCA, positive STEMI secondary to hemodynamic instability, small vessel CAD. Medical treatment recommended. The patient had echocardiography also done on 10/04/2017 that shows decreased LV function, ejection fraction 35%; moderate hypokinesis in the apical anterior wall, right ventricle dilated, systolic function of RV is reduced, aortic sclerosis, mild aortic stenosis, mitral regurgitation is trace, mild to moderate tricuspid regurgitation with RV systolic pressure of 42. The patient underwent MUGA scan dated 10/05/2017 that shows preserved LV function, ejection fraction 60%, normal RV and wall motion. REVIEW OF SYSTEMS: As per HPI. CURRENT MEDICATIONS: The patient is taking at home, Requip, prednisone, guaifenesin, ipratropium nebulizer treatment, metoprolol succinate 50 mg daily, lisinopril 30 mg daily, isosorbide 60 mg daily, insulin 20 units daily, Lasix 40, clopidogrel 75 mg daily, atorvastatin 20 mg daily, baby aspirin 81 mg daily, allopurinol 300 mg daily. PHYSICAL EXAMINATION: VITAL SIGNS: Temperature afebrile, heart rate 90, blood pressure 163/74. HEENT: PERRLA. Extraocular muscles intact. NECK: Supple. No carotid bruits or thyromegaly. CHEST: Clear to auscultation. HEART: S1, S2 regular. ABDOMEN: Soft. EXTREMITIES: Clubbing and cyanosis negative. LABORATORY DATA: Blood workup as follows: WBC 19.9, hemoglobin 11.4, hematocrit of 38.4, platelet count 374. Chemistry shows as of sodium 130, potassium 5.3, chloride 89, carbon dioxide 38, anion gap of 11, BUN 52, creatinine of 1.1. IMPRESSION: Non-ST segment myocardial infarction status post cardiac catheterization, small vessel disease, patent stent in left anterior descending artery, patent stent in circumflex and right coronary artery, decreased left ventricular function with ejection fraction 49%. Repeat MUGA scan shows ejection fraction 60%, normal right ventricular wall motion. Diabetes, chronic obstructive pulmonary disease, status post multiple stents, uncontrolled hypertension. RECOMMENDATIONS: We will optimize medical treatment. The patient was on at home 30 mg of lisinopril to start, decrease to 2.5 because the patient initially was hypotensive. We will increase Coreg. We will follow with you. Discussed with the nursing staff taking care of the patient. We will give 10 mg of lisinopril one stat dose now. We will repeat the blood workup in the morning. Thank you, Dr. Sher, for providing us the opportunity in taking care of the patient, Mandy Miranda. Trae Henry MD
[2017-10-09] MEDS: Insulin Detemir 100 units/ml Vial (Levemir) SC SCH (21:25)
[2017-10-10] MEDS: Pantoprazole 40 mg EC Tab PO SCH (06:25)
[2017-10-10 06:27] LABS: GRAN # 13.53 (1.4-6.5); GRAN % 88.9 % (50.0-68.0); HEMOGLOBIN 12.1 g/dL (12.0-16.0); LYMPH # 0.7 (1.2-3.4); LYMPH % 4.3 % (22.0-35.0); MEAN CELL VOLUME 89.5 fl (80.0-105.0); MEAN CORPUSCULAR HEMOGLOBIN 25.9 pg (25.0-35.0); MEAN CORPUSCULAR HGB CONC 28.9 g/dl (31.0-37.0); MONO % 6.8 % (1.0-6.0); PLATELET COUNT 297 10^3/uL (120.0-450.0); RBC 4.67 10^6/uL (3.5-6.1); RED CELL DISTRIBUTION WIDTH 16.1 % (11.5-14.5); WHITE BLOOD COUNT 15.2 10^3/ul (4.5-11.0)
[2017-10-10] MEDS: Insulin Lispro (humaLOG) MIX 75/25(10 ml) SC SCH ×3 (06:50→22:23)
[2017-10-10] MEDS: Insulin Lispro (HUMAlog) HIGH Coverage SC SCH ×4 (06:53→22:22)
[2017-10-10] MEDS: Arformoterol 15 mcg/2 ml Inh Sol IH SCH ×2 (07:07→20:00)
[2017-10-10] MEDS: Levalbuterol 1.25 MG/3 ML Inhal Soln UD IH PRN ×2 (07:08→13:30)
[2017-10-10] MEDS: Budesonide 0.5 mg/2 ml Inhal Susp UD IH SCH ×2 (07:08→20:00)
[2017-10-10 07:10] LABS: ALT/SGPT 45 U/L (7-56); AST/SGOT 34 U/L (14-36); BLOOD UREA NITROGEN 41 mg/dL (7-21); CALCIUM 8.6 mg/dL (8.4-10.5); GFR AFRICAN-AMERICAN > 60; GFR NON-AFRICAN AMERICAN > 60
--- NOTE | 2017-10-10 07:24 | CP.PCM.PN ---
Subjective - Date & Time of Evaluation Date of Evaluation: 10/10/17 Time of Evaluation: 06:40 - Subjective Subjective: Awake, alert, no distress,comfortable Reason for consultation and follow up: Continuity of care in TCU, cardiac follow up,history of end-stage chronic obstructive pulmonary disease with a history of pulmonary nodules , diabetes mellitus, coronary artery disease S/P cardiac catheterization and placement of cardiac stents, hypertension. NSTEMI, exacerbation of COPD. Seen and examined by me and Dr. Henry Objective - Vital Signs/Intake and Output Vital Signs (last 24 hours): Temp Pulse Resp BP Pulse Ox 98 F 86 22 145/89 97 10/10/17 06:45 10/10/17 06:45 10/10/17 06:45 10/10/17 06:45 10/10/17 06:45 - Medications Medications: Current Medications Acetaminophen (Tylenol 325mg Tab) 650 mg PO Q4H PRN; Protocol PRN Reason: Pain, Mild (1-3), FEVER >100.4 Allopurinol (Zyloprim) 300 mg PO DAILY [facility] PRN Reason: Protocol Last Admin: 10/09/17 09:20 Dose: 300 mg Alprazolam (Xanax) 0.25 mg PO TID PRN; Protocol PRN Reason: Anxiety Stop: 10/15/17 18:01 Last Admin: 10/09/17 22:38 Dose: 0.25 mg Arformoterol Tartrate (Brovana) 15 mcg IH [id number] [facility] Last Admin: 10/10/17 07:07 Dose: 15 mcg Aspirin (Ecotrin) 81 mg PO 0800 [facility] PRN Reason: Protocol Last Admin: 10/09/17 09:13 Dose: 81 mg Atorvastatin Calcium (Lipitor) 20 mg PO DIN [facility] PRN Reason: Protocol Last Admin: 10/09/17 17:21 Dose: 20 mg Benzocaine/Menthol (Cepacol Sore Throat) 1 jack MT Q2H PRN; Protocol PRN Reason: Sore Throat Budesonide (Pulmicort Respules) 0.5 mg IH [id number] [facility] PRN Reason: Protocol Last Admin: 10/10/17 07:08 Dose: Not Given Carvedilol (Coreg) 6.25 mg PO 0800,1800 [facility] PRN Reason: Protocol Last Admin: 07/10/18 17:21 Dose: 6.25 mg Clopidogrel Bisulfate (Plavix) 75 mg PO DAILY [facility] PRN Reason: Protocol Last Admin: 10/09/17 09:19 Dose: 75 mg Enoxaparin Sodium (Lovenox) 30 mg SC DAILY [facility] PRN Reason: Protocol Last Admin: 10/09/17 09:18 Dose: 30 mg Furosemide (Lasix) 40 mg PO DAILY [facility] PRN Reason: Protocol Last Admin: 10/09/17 09:17 Dose: 40 mg Gabapentin (Neurontin) 200 mg PO TID [facility] PRN Reason: Protocol Last Admin: 10/09/17 17:22 Dose: 200 mg Meropenem 1,000 mg/ Sodium (Chloride) 50 mls @ 100 mls/hr IVPB 0600,1800 [facility] PRN Reason: Protocol Stop: 10/12/17 06:01 Last Admin: 10/10/17 06:24 Dose: 100 mls/hr Insulin Detemir (Levemir) 25 unit SC HS [facility] PRN Reason: Protocol Last Admin: 10/09/17 21:25 Dose: 25 unit Insulin Human Lispro (Humalog High) 0 units SC ACHS [facility] PRN Reason: Protocol Last Admin: 10/10/17 06:53 Dose: 2 unit Insulin Lispro Protam/Lispro Human (Humalog Mix 75/25) 15 units SC ACBD [facility] PRN Reason: Protocol Last Admin: 10/10/17 06:50 Dose: Not Given Isosorbide Mononitrate (Imdur) 60 mg PO 0600 [facility] PRN Reason: Protocol Last Admin: 10/10/17 06:25 Dose: 60 mg Levalbuterol HCl (Xopenex) 1.25 mg IH [id number] PRN; Protocol PRN Reason: Shortness of Breath Last Admin: 10/10/17 07:08 Dose: 1.25 mg Levofloxacin (Levaquin) 750 mg PO Q48H [facility] Stop: 10/15/17 07:29 Lisinopril (Zestril) 10 mg PO DAILY [facility] PRN Reason: Protocol Methylprednisolone (Solu-Medrol) 30 mg IVP Q12 [facility] PRN Reason: Protocol Last Admin: 10/09/17 21:24 Dose: 30 mg Pantoprazole Sodium (Protonix Ec Tab) 40 mg PO 0600 [facility] PRN Reason: Protocol Last Admin: 10/10/17 06:25 Dose: 40 mg Ropinirole HCl (Requip) 3 mg PO HS [facility] PRN Reason: Protocol Last Admin: 10/09/17 21:23 Dose: 3 mg Tiotropium [place] (Spiriva) 18 mcg IH DAILY [facility] Last Admin: 10/09/17 12:13 Dose: 18 mcg Verapamil HCl (Calan Tab) 40 mg PO TID [facility] PRN Reason: Protocol Last Admin: 10/09/17 17:21 Dose: 40 mg - Labs Labs: 10/10/17 06:10 10/10/17 06:10 - Constitutional Appears: No Acute Distress - Head Exam Head Exam: NORMOCEPHALIC - Respiratory Exam Respiratory Exam: Decreased Breath Sounds, Rhonchi, NORMAL BREATHING PATTERN Additional comments: nasal cannula - Cardiovascular Exam Cardiovascular Exam: +S1, +S2 - GI/Abdominal Exam GI & Abdominal Exam: Soft, Normal Bowel Sounds - Extremities Exam Extremities Exam: Normal Capillary Refill - Neurological Exam Neurological Exam: Alert, Awake, Oriented x3 - Psychiatric Exam Psychiatric exam: Normal Affect - Skin Skin Exam: Dry, Warm Assessment and Plan - Assessment and Plan (Free Text) Assessment: A 72 year old female who came in to the ER due to shortness of breath. She had exacerbation of COPD and NSTEMI (positive troponins). Cardiac catherization was done and revealed non obstructive coronary artery disease, treat medically. History of end-stage chronic obstructive pulmonary disease with a history of pulmonary nodules , diabetes mellitus, coronary artery disease S/P cardiac catheterization and placement of cardiac stents, hypertension. Sepsis, Sputum positive for Sphingomonas. ID on consult. Improving clinically, transferred to TCU for reconditioning. Plan: Cardiac status stable Physical therapy in progress Blood pressure and heart rate stable No respiratory distress Continue current treatment Continue current medications Will follow up Plan and treatment discussed with Dr. Henry
[2017-10-10 07:52] LABS: LYMPHOCYTE 6 % (22.0-35.0); MONOCYTE 2 % (1.0-6.0); NEUTROPHIL 92 % (50.0-70.0); PLATELET ESTIMATE NORMAL (NORMAL)
--- NOTE | 2017-10-10 08:20 | HP ---
HISTORY OF PRESENT ILLNESS: The patient is 72 years old who was admitted with increasing cough, congestion, productive cough, some chest discomfort. Denies any nausea or vomiting. No diarrhea. No history of fever or chills. Does have productive cough. Occasional hemoptysis. In the emergency room, the patient was hypoxic. Initial workup, she was with negative troponin. She was taken to a labor arbitrator hearing office and had an angiography done, which shows nonobstructive coronary artery disease, small vessel coronary, mildly decreased LV function with ejection fraction of 45% and patent previous stents. Her steroids were slowly tapered down. She was on nebulizer treatment. The patient complained of generalized weakness. Being transferred to TCU for rehab. PAST MEDICAL HISTORY: Significant for, 1. Hypertension. 2. Coronary artery disease. 3. Insulin-dependent diabetes. 4. Hyperlipidemia. 5. Terminal COPD. 6. Restless legs syndrome. 7. Ventral hernia. ALLERGIES: SHE IS ALLERGIC TO FISH, IODINE, OXAPROZIN, PENICILLIN AND ZOLPIDEM. MEDICATIONS AT HOME: As per MAR. SOCIAL HISTORY: She was a heavy smoker up until 3 years ago. She lives with her . She is . PHYSICAL EXAMINATION: GENERAL: She is awake, alert, oriented. Mild shortness of breath. VITAL SIGNS: She is afebrile, pulse 103, respirations 18, blood pressure 138/76. LUNGS: Bilateral fair airflow. Few occasional expiratory rhonchi. HEART: S1 and S2 audible. ABDOMEN: Soft. Nontender. No rebound. No guarding. NEUROLOGIC: The patient is awake, alert, oriented, communicative, ambulatory. Walking with physical therapist with oxygen. ASSESSMENT: 1. [id number] myocardial infarction. 2. Chronic obstructive pulmonary disease exacerbation. 3. History of chronic obstructive pulmonary disease. 4. Asthmatic bronchitis. 5. Hypertension. 6. Hyperlipidemia. 7. Coronary artery disease, status post angioplasty in the past. PLAN: We will continue the patient on current medications. We will slowly taper down her steroid. Continue nebulizer treatment. Continue physical therapy. Ten Sher MD
[2017-10-10] MEDS: Enoxaparin 30 mg Syringe SC SCH (09:59)
[2017-10-10] MEDS: MethylPREDNISolone 40 mg Vial IVP SCH (10:00)
[2017-10-10] MEDS: Tiotropium 18 mcg Cap For Inhalation IH SCH (10:01)
--- NOTE | 2017-10-10 10:38 | CP.PCM.PN ---
Subjective - Date & Time of Evaluation Date of Evaluation: 10/10/17 Time of Evaluation: 09:35 - Subjective Subjective: Still with some SOB, no fevers. Objective - Vital Signs/Intake and Output Vital Signs (last 24 hours): Temp Pulse Resp BP Pulse Ox 98 F 86 22 145/89 97 10/10/17 06:45 10/10/17 07:47 10/10/17 06:45 10/10/17 07:47 10/10/17 06:45 - Medications Medications: Current Medications Acetaminophen (Tylenol 325mg Tab) 650 mg PO Q4H PRN; Protocol PRN Reason: Pain, Mild (1-3), FEVER >100.4 Allopurinol (Zyloprim) 300 mg PO DAILY [facility] PRN Reason: Protocol Last Admin: 10/09/17 09:20 Dose: 300 mg Alprazolam (Xanax) 0.25 mg PO TID PRN; Protocol PRN Reason: Anxiety Stop: 10/15/17 18:01 Last Admin: 10/09/17 22:38 Dose: 0.25 mg Arformoterol Tartrate (Brovana) 15 mcg IH [id number] [facility] Last Admin: 10/10/17 07:07 Dose: 15 mcg Aspirin (Ecotrin) 81 mg PO 0800 [facility] PRN Reason: Protocol Last Admin: 10/10/17 07:47 Dose: 81 mg Atorvastatin Calcium (Lipitor) 20 mg PO DIN [facility] PRN Reason: Protocol Last Admin: 10/09/17 17:21 Dose: 20 mg Benzocaine/Menthol (Cepacol Sore Throat) 1 jack MT Q2H PRN; Protocol PRN Reason: Sore Throat Budesonide (Pulmicort Respules) 0.5 mg IH [id number] [facility] PRN Reason: Protocol Last Admin: 10/10/17 07:08 Dose: Not Given Carvedilol (Coreg) 6.25 mg PO 0800,1800 [facility] PRN Reason: Protocol Last Admin: 10/10/17 07:47 Dose: 6.25 mg Clopidogrel Bisulfate (Plavix) 75 mg PO DAILY [facility] PRN Reason: Protocol Last Admin: 10/09/17 09:19 Dose: 75 mg Enoxaparin Sodium (Lovenox) 30 mg SC DAILY [facility] PRN Reason: Protocol Last Admin: 10/09/17 09:18 Dose: 30 mg Furosemide (Lasix) 40 mg PO DAILY [facility] PRN Reason: Protocol Last Admin: 10/09/17 09:17 Dose: 40 mg Gabapentin (Neurontin) 200 mg PO TID [facility] PRN Reason: Protocol Last Admin: 10/09/17 17:22 Dose: 200 mg Meropenem 1,000 mg/ Sodium (Chloride) 50 mls @ 100 mls/hr IVPB 0600,1800 [facility] PRN Reason: Protocol Stop: 10/12/17 06:01 Last Admin: 10/10/17 06:24 Dose: 100 mls/hr Insulin Detemir (Levemir) 25 unit SC HS [facility] PRN Reason: Protocol Last Admin: 10/09/17 21:25 Dose: 25 unit Insulin Human Lispro (Humalog High) 0 units SC ACHS [facility] PRN Reason: Protocol Last Admin: 10/10/17 06:53 Dose: 2 unit Insulin Lispro Protam/Lispro Human (Humalog Mix 75/25) 15 units SC ACBD [facility] PRN Reason: Protocol Last Admin: 10/10/17 06:50 Dose: Not Given Isosorbide Mononitrate (Imdur) 60 mg PO 0600 [facility] PRN Reason: Protocol Last Admin: 10/10/17 06:25 Dose: 60 mg Levalbuterol HCl (Xopenex) 1.25 mg IH [id number] PRN; Protocol PRN Reason: Shortness of Breath Last Admin: 10/10/17 07:08 Dose: 1.25 mg Levofloxacin (Levaquin) 750 mg PO Q48H [facility] Stop: 10/15/17 07:29 Lisinopril (Zestril) 10 mg PO DAILY [facility] PRN Reason: Protocol Methylprednisolone (Solu-Medrol) 30 mg IVP Q12 [facility] PRN Reason: Protocol Last Admin: 10/09/17 21:24 Dose: 30 mg Pantoprazole Sodium (Protonix Ec Tab) 40 mg PO 0600 [facility] PRN Reason: Protocol Last Admin: 10/10/17 06:25 Dose: 40 mg Ropinirole HCl (Requip) 3 mg PO HS [facility] PRN Reason: Protocol Last Admin: 10/09/17 21:23 Dose: 3 mg Tiotropium [place] (Spiriva) 18 mcg IH DAILY [facility] Last Admin: 10/09/17 12:13 Dose: 18 mcg Verapamil HCl (Calan Tab) 40 mg PO TID [facility] PRN Reason: Protocol Last Admin: 10/09/17 17:21 Dose: 40 mg - Labs Labs: 10/10/17 06:10 10/10/17 06:10 - Constitutional Appears: Chronically Ill - Head Exam Head Exam: NORMAL INSPECTION - Respiratory Exam Respiratory Exam: Decreased Breath Sounds - Cardiovascular Exam Cardiovascular Exam: +S1, +S2 - GI/Abdominal Exam GI & Abdominal Exam: Soft. absent: Tenderness Assessment and Plan - Assessment and Plan (Free Text) Plan: assessment severe sepsis from Sphingomonas HCAP, slowly improving clinically history of multifocal community-acquired pneumonia end-stage chronic obstructive pulmonary disease with a history of pulmonary nodules diabetes mellitus coronary artery disease S/P cardiac catheterization and placement of cardiac stents hypertension Questionable history of penicillin allergy (rash) and Doxycycline (although she has tolerated doxycycline in past admissions) Plan continue Merrem day 7 of at least 7 days and Levaquin (up to 10 days total antibiotic therapy) and will continue to monitor clinically overall prognosis is poor
--- NOTE | 2017-10-10 13:14 | PN ---
DATE: 10/10/2017 PULMONARY PROGRESS NOTE SUBJECTIVE: Patient was seen and examined in Transitional Care Unit at bedside. She is not in respiratory distress. She did not use BiPAP at night. She feels that she is anxious and not able to sleep with BiPAP. PHYSICAL EXAMINATION: VITAL SIGNS: Her pulse is 84, blood pressure 140/75, pulse oximetry is 97% on nasal cannula and heart rate is 80. NECK: Supple. There is no jugular vein distention. HEAD: Normocephalic and atraumatic. CHEST: Scattered rhonchi and few expiratory wheezes, moderately severe obstruction. CARDIOVASCULAR: S1, S2. No S3, regular. GASTROINTESTINAL: Soft, nontender. No organomegaly. EXTREMITIES: No pedal edema. No cyanosis. NEUROLOGIC: Limited at present time. SKIN: No acute skin rash. LABORATORY DATA: Chest x-ray shows chronic changes, no acute infiltrates. ASSESSMENT: Chronic obstructive pulmonary disease with exacerbation; pneumonia, resolving; coronary artery disease. PLAN: Patient is stable from pulmonary standpoint. She will continue with physical therapy and ambulation in Transitional Care Unit. She is a chronic CO2 retainer who has respiratory insufficiency and will have to be monitored closely on outpatient basis as well. Yossi Granda MD
--- NOTE | 2017-10-10 14:33 | PN ---
DATE: 10/10/2017 SUBJECTIVE: The patient is a 72-year-old, seen and examined, lying in bed, seems to be comfortable. States she could not sleep last night, asking for something to sleep. Otherwise, doing okay. PHYSICAL EXAMINATION: VITAL SIGNS: She is afebrile, pulse 86, respirations 20, blood pressure 108/54. LUNGS: Bilateral fair airflow. Few expiratory rhonchi. HEART: S1 and S2 audible. ABDOMEN: Soft, nontender. No rebound, no guarding. NEUROLOGIC: The patient is awake, alert, oriented, communicative. ASSESSMENT: 1. Status post [id number] myocardial infarction, status post cardiac cath. No intervention was needed. Stenosis was not critical. 2. Chronic obstructive pulmonary disease exacerbation. 3. Hypertension. 4. Hyperlipidemia. 5. Insulin-dependent diabetes. PLAN: We will continue the patient on current medication. She is requesting for Xanax at bedtime, hour of sleep. I will also taper down her steroids since she is not using anymore. I will follow up the patient in a.m. Ten Sher MD
[2017-10-10] MEDS: Insulin Detemir 100 units/ml Vial (Levemir) SC SCH (22:40)
[2017-10-11] MEDS: Pantoprazole 40 mg EC Tab PO SCH (05:19)
[2017-10-11] MEDS ORDERED: levoFLOXacin 750 MG TAB PO SCH (06:00)
[2017-10-11] MEDS: Insulin Lispro (HUMAlog) HIGH Coverage SC SCH ×4 (06:55→21:47)
[2017-10-11] MEDS: Insulin Lispro (humaLOG) MIX 75/25(10 ml) SC SCH ×2 (06:58→17:11)
[2017-10-11] MEDS: Budesonide 0.5 mg/2 ml Inhal Susp UD IH SCH ×2 (07:12→21:47)
[2017-10-11] MEDS: Levalbuterol 1.25 MG/3 ML Inhal Soln UD IH PRN ×3 (07:12→13:13)
[2017-10-11] MEDS: Arformoterol 15 mcg/2 ml Inh Sol IH SCH ×2 (07:12→21:47)
--- NOTE | 2017-10-11 08:04 | CP.PCM.PN ---
Subjective - Date & Time of Evaluation Date of Evaluation: 10/11/17 Time of Evaluation: 06:40 - Subjective Subjective: sleeping but easily awaken, no distress,comfortable Reason for consultation and follow up: Continuity of care in TCU, cardiac follow up,history of end-stage chronic obstructive pulmonary disease with a history of pulmonary nodules , diabetes mellitus, coronary artery disease S/P cardiac catheterization and placement of cardiac stents, hypertension. NSTEMI, exacerbation of COPD. Seen and examined by me and Dr. Henry Objective - Vital Signs/Intake and Output Vital Signs (last 24 hours): Temp Pulse Resp BP Pulse Ox 98.6 F 92 H 20 127/62 95 10/10/17 16:00 10/10/17 22:35 10/10/17 16:00 10/10/17 17:42 10/10/17 16:22 - Medications Medications: Current Medications Acetaminophen (Tylenol 325mg Tab) 650 mg PO Q4H PRN; Protocol PRN Reason: Pain, Mild (1-3), FEVER >100.4 Allopurinol (Zyloprim) 300 mg PO DAILY BRIANNA PRN Reason: Protocol Last Admin: 10/10/17 10:02 Dose: 300 mg Alprazolam (Xanax) 0.25 mg PO HS B[facility]ANNA PRN Reason: Protocol Stop: 10/17/17 22:01 Last Admin: 10/10/17 22:21 Dose: 0.25 mg Arformoterol Tartrate (Brovana) 15 mcg IH [id number] [facility] Last Admin: 10/11/17 07:12 Dose: 15 mcg Aspirin (Ecotrin) 81 mg PO 0800 [facility]NA PRN Reason: Protocol Last Admin: 10/10/17 07:47 Dose: 81 mg Atorvastatin Calcium (Lipitor) 20 mg PO DIN [facility]ANNA PRN Reason: Protocol Last Admin: 10/10/17 17:38 Dose: 20 mg Benzocaine/Menthol (Cepacol Sore Throat) 1 jack MT Q2H PRN; Protocol PRN Reason: Sore Throat Budesonide (Pulmicort Respules) 0.5 mg IH [id number] [facility] PRN Reason: Protocol Last Admin: 10/11/17 07:12 Dose: Not Given Carvedilol (Coreg) 6.25 mg PO 0800,1800 [facility]NA PRN Reason: Protocol Last Admin: 10/10/17 17:42 Dose: 6.25 mg Clopidogrel Bisulfate (Plavix) 75 mg PO DAILY BRIANNA PRN Reason: Protocol Last Admin: 10/10/17 10:00 Dose: 75 mg Enoxaparin Sodium (Lovenox) 30 mg SC DAILY BRIANNA PRN Reason: Protocol Last Admin: 10/10/17 09:59 Dose: 30 mg Furosemide (Lasix) 40 mg PO DAILY BRIANNA PRN Reason: Protocol Last Admin: 10/10/17 10:02 Dose: 40 mg Gabapentin (Neurontin) 200 mg PO TID B[facility]ANNA PRN Reason: Protocol Last Admin: 10/10/17 17:41 Dose: 200 mg Meropenem 1,000 mg/ Sodium (Chloride) 50 mls @ 100 mls/hr IVPB 0600,1800 [facility]ANNA PRN Reason: Protocol Stop: 10/12/17 06:01 Last Admin: 10/11/17 05:18 Dose: 100 mls/hr Insulin Detemir (Levemir) 25 unit SC HS BRIANNA PRN Reason: Protocol Last Admin: 10/10/17 22:40 Dose: 25 unit Insulin Human Lispro (Humalog High) 0 units SC ACHS B[facility]ANNA PRN Reason: Protocol Last Admin: 10/11/17 06:55 Dose: Not Given Insulin Lispro Protam/Lispro Human (Humalog Mix 75/25) 15 units SC ACBD BRIANNA PRN Reason: Protocol Last Admin: 10/11/17 06:58 Dose: Not Given Isosorbide Mononitrate (Imdur) 60 mg PO 0600 BRIANNA PRN Reason: Protocol Last Admin: 10/11/17 05:19 Dose: 60 mg Levalbuterol HCl (Xopenex) 1.25 mg IH [id number] PRN; Protocol PRN Reason: Shortness of Breath Last Admin: 10/11/17 07:12 Dose: 1.25 mg Levofloxacin (Levaquin) 750 mg PO Q48H [facility] Stop: 10/15/17 07:29 Last Admin: 10/11/17 05:19 Dose: 750 mg Lisinopril (Zestril) 10 mg PO DAILY BRIANNA PRN Reason: Protocol Last Admin: 10/10/17 10:01 Dose: Not Given Pantoprazole Sodium (Protonix Ec Tab) 40 mg PO 0600 BRIANNA PRN Reason: Protocol Last Admin: 10/11/17 05:19 Dose: 40 mg Prednisone (Prednisone Tab) 20 mg PO BID [facility] Last Admin: 10/10/17 17:41 Dose: 20 mg Ropinirole HCl (Requip) 3 mg PO HS [facility] PRN Reason: Protocol Last Admin: 10/10/17 22:21 Dose: 3 mg Tiotropium Lamar (Spiriva) 18 mcg IH DAILY [facility] Last Admin: 10/10/17 10:01 Dose: 18 mcg Verapamil HCl (Calan Tab) 40 mg PO TID [facility] PRN Reason: Protocol Last Admin: 10/10/17 17:41 Dose: 40 mg - Labs Labs: 10/10/17 06:10 10/10/17 06:10 - Constitutional Appears: No Acute Distress - Eye Exam Eye Exam: Normal appearance - ENT Exam ENT Exam: Mucous Membranes Moist - Respiratory Exam Respiratory Exam: Decreased Breath Sounds, NORMAL BREATHING PATTERN - Cardiovascular Exam Cardiovascular Exam: +S1, +S2 - GI/Abdominal Exam GI & Abdominal Exam: Soft, Normal Bowel Sounds - Extremities Exam Extremities Exam: Normal Capillary Refill - Neurological Exam Neurological Exam: Alert, Awake, Oriented x3 - Psychiatric Exam Psychiatric exam: Normal Affect - Skin Skin Exam: Dry, Warm Assessment and Plan - Assessment and Plan (Free Text) Assessment: A 72 year old female who came in to the ER due to shortness of breath. She had exacerbation of COPD and NSTEMI (positive troponins). Cardiac catherization was done and revealed non obstructive coronary artery disease, treat medically. History of end-stage chronic obstructive pulmonary disease with a history of pulmonary nodules , diabetes mellitus, coronary artery disease S/P cardiac catheterization and placement of cardiac stents, hypertension. Sepsis, Sputum positive for Sphingomonas. ID on consult. Improving clinically, transferred to TCU for reconditioning. Plan: No distress, comfortable,afebrile On IV Meropenem and oral Levaquin for sputum positive for Sphingomonas. Physical therapy in progress Cardiac status stable Blood pressure and heart rate stable On ASA 81 mg daily,Lipitor 20 mg daily, Coreg 6.25mg BID, Plavix 75 mg daily,Lovenox 30 mg daily,Lasix 40 mg daily Imdur 60 mg daily,Lisinopril 10 mg daily,Calan 40 mg TID,Prednisone 20 mg BID Continue current treatment Continue current medications Will follow up Plan and treatment discussed with Dr. Henry
[2017-10-11] MEDS: Tiotropium 18 mcg Cap For Inhalation IH SCH (09:22)
[2017-10-11] MEDS: Enoxaparin 30 mg Syringe SC SCH (09:24)
--- NOTE | 2017-10-11 10:11 | CP.PCM.PN ---
Subjective - Date & Time of Evaluation Date of Evaluation: 10/11/17 Time of Evaluation: 09:35 - Subjective Subjective: Breathing better, no fevers. Objective - Vital Signs/Intake and Output Vital Signs (last 24 hours): Temp Pulse Resp BP Pulse Ox 98.6 F 92 H 20 140/73 95 10/10/17 16:00 10/10/17 22:35 10/10/17 16:00 10/11/17 08:15 10/10/17 16:22 - Medications Medications: Current Medications Acetaminophen (Tylenol 325mg Tab) 650 mg PO Q4H PRN; Protocol PRN Reason: Pain, Mild (1-3), FEVER >100.4 Allopurinol (Zyloprim) 300 mg PO DAILY BRIANNA PRN Reason: Protocol Last Admin: 10/10/17 10:02 Dose: 300 mg Alprazolam (Xanax) 0.25 mg PO HS [facility]ANNA PRN Reason: Protocol Stop: 10/17/17 22:01 Last Admin: 10/10/17 22:21 Dose: 0.25 mg Arformoterol Tartrate (Brovana) 15 mcg IH [id number] [facility] Last Admin: 10/11/17 07:12 Dose: 15 mcg Aspirin (Ecotrin) 81 mg PO 0800 [facility] PRN Reason: Protocol Last Admin: 10/11/17 08:16 Dose: 81 mg Atorvastatin Calcium (Lipitor) 20 mg PO DIN [facility] PRN Reason: Protocol Last Admin: 10/10/17 17:38 Dose: 20 mg Benzocaine/Menthol (Cepacol Sore Throat) 1 jack MT Q2H PRN; Protocol PRN Reason: Sore Throat Budesonide (Pulmicort Respules) 0.5 mg IH [id number] [facility] PRN Reason: Protocol Last Admin: 10/11/17 07:12 Dose: Not Given Carvedilol (Coreg) 6.25 mg PO 0800,1800 [facility]NA PRN Reason: Protocol Last Admin: 10/11/17 08:15 Dose: 6.25 mg Clopidogrel Bisulfate (Plavix) 75 mg PO DAILY [facility] PRN Reason: Protocol Last Admin: 10/10/17 10:00 Dose: 75 mg Enoxaparin Sodium (Lovenox) 30 mg SC DAILY B[facility]ANNA PRN Reason: Protocol Last Admin: 10/10/17 09:59 Dose: 30 mg Furosemide (Lasix) 40 mg PO DAILY [facility]RIANNA PRN Reason: Protocol Last Admin: 10/10/17 10:02 Dose: 40 mg Gabapentin (Neurontin) 200 mg PO TID [facility]NA PRN Reason: Protocol Last Admin: 10/10/17 17:41 Dose: 200 mg Meropenem 1,000 mg/ Sodium (Chloride) 50 mls @ 100 mls/hr IVPB 0600,1800 B[facility]ANNA PRN Reason: Protocol Stop: 10/12/17 06:01 Last Admin: 10/11/17 05:18 Dose: 100 mls/hr Insulin Detemir (Levemir) 25 unit SC HS BRIANNA PRN Reason: Protocol Last Admin: 10/10/17 22:40 Dose: 25 unit Insulin Human Lispro (Humalog High) 0 units SC ACHS [facility]ANNA PRN Reason: Protocol Last Admin: 10/11/17 06:55 Dose: Not Given Insulin Lispro Protam/Lispro Human (Humalog Mix 75/25) 15 units SC ACBD [facility]ANNA PRN Reason: Protocol Last Admin: 10/11/17 06:58 Dose: Not Given Isosorbide Mononitrate (Imdur) 60 mg PO 0600 B[facility]ANNA PRN Reason: Protocol Last Admin: 10/11/17 05:19 Dose: 60 mg Levalbuterol HCl (Xopenex) 1.25 mg IH [id number] PRN; Protocol PRN Reason: Shortness of Breath Last Admin: 10/11/17 07:12 Dose: 1.25 mg Levofloxacin (Levaquin) 750 mg PO Q48H [facility] Stop: 10/15/17 07:29 Last Admin: 10/11/17 05:19 Dose: 750 mg Lisinopril (Zestril) 10 mg PO DAILY BRIANNA PRN Reason: Protocol Last Admin: 10/10/17 10:01 Dose: Not Given Pantoprazole Sodium (Protonix Ec Tab) 40 mg PO 0600 BRIANNA PRN Reason: Protocol Last Admin: 10/11/17 05:19 Dose: 40 mg Prednisone (Prednisone Tab) 20 mg PO BID [facility] Last Admin: 10/10/17 17:41 Dose: 20 mg Ropinirole HCl (Requip) 3 mg PO HS [facility]ANNA PRN Reason: Protocol Last Admin: 10/10/17 22:21 Dose: 3 mg Tiotropium [place] (Spiriva) 18 mcg IH DAILY [facility] Last Admin: 10/10/17 10:01 Dose: 18 mcg Verapamil HCl (Calan Tab) 40 mg PO TID [facility]RIANNA PRN Reason: Protocol Last Admin: 10/10/17 17:41 Dose: 40 mg - Labs Labs: 10/10/17 06:10 10/10/17 06:10 - Constitutional Appears: Non-toxic, Chronically Ill - Head Exam Head Exam: NORMAL INSPECTION - Respiratory Exam Respiratory Exam: Decreased Breath Sounds - Cardiovascular Exam Cardiovascular Exam: +S1, +S2 - GI/Abdominal Exam GI & Abdominal Exam: Soft. absent: Tenderness Assessment and Plan - Assessment and Plan (Free Text) Plan: assessment severe sepsis from Sphingomonas HCAP, slowly improving clinically history of multifocal community-acquired pneumonia end-stage chronic obstructive pulmonary disease with a history of pulmonary nodules diabetes mellitus coronary artery disease S/P cardiac catheterization and placement of cardiac stents hypertension Questionable history of penicillin allergy (rash) and Doxycycline (although she has tolerated doxycycline in past admissions) Plan continue Merrem day 8 and Levaquin (up to 10 days total antibiotic therapy) and will continue to monitor clinically overall prognosis is poor
--- NOTE | 2017-10-11 12:08 | PN ---
DATE: 10/11/2017 PULMONARY PROGRESS NOTE SUBJECTIVE: The patient is markedly improved today, she is in better spirits and less short of breath. She is using the BiPAP at night. She has a better attitude today. PHYSICAL EXAMINATION: VITAL SIGNS: Stable. She is afebrile. Blood pressure 140/80, pulse ox 97% on nasal cannula, heart rate 86. NECK: Supple. No jugular venous distention or lymphadenopathy. HEENT: Head normocephalic, atraumatic. CHEST: Minimal rhonchi throughout both lung willis. No wheezing is appreciated this morning. CARDIOVASCULAR: Regular rhythm. S1, S2. Soft systolic ejection murmur persist. ABDOMEN: Soft. Bowel sounds normoactive without mass, guarding, rebound or organomegaly. EXTREMITIES: Reveal no clubbing, cyanosis. There is trace edema. NEUROLOGIC: No focal findings. SKIN: No rash or excoriation. ASSESSMENT: 1. Severe chronic obstructive pulmonary disease. 2. Pulmonary hypertension. 3. Congestive heart failure. 4. Coronary artery disease. 5. Status post pneumonia. 6. Status post myocardial infarction. PLAN: Continue vigorous supportive care with bronchodilators and inhaled corticosteroids, supplemental oxygen, BiPAP while sleeping. Continue vigorous support. She is undergoing physical therapy at this time, ambulating and doing some exercises. As this improves, her status should improve, her mental status should improve as well and we will consider discharge. We will discuss with you regarding further intervention. Thank you for the opportunity to continue to follow this ju[place] woman. Mk Chamberlain MD
--- NOTE | 2017-10-11 14:52 | PN ---
DATE: 10/11/2017 SUBJECTIVE: The patient is 72 years old, seen and examined, doing physical therapy. Complained of shortness of breath, desaturated to 86%, currently on 2 liters of oxygen. Did sleep well last night, since she was given bedtime Xanax, requesting for Xanax as needed during the daytime. PHYSICAL EXAMINATION: VITAL SIGNS: Today, she is afebrile, pulse 84, respirations 20, blood pressure 148/74. LUNGS: Bilateral occasional expiratory rhonchi. Diffusely decreased breath sound. HEART: S1 and S2 audible. ABDOMEN: Soft, nontender. No rebound. No guarding. NEUROLOGIC: She is awake, alert, oriented, communicative. EXTREMITIES: Moves all extremities. LABORATORY DATA: Blood sugar is 153. Her insulin was adjusted last night. ASSESSMENT: 1. Insulin-dependent diabetes. 2. Uncontrolled hyperglycemia secondary to steroid. 3. Coronary artery disease. 4. Hypertension. 5. Hyperlipidemia. 6. Chronic obstructive pulmonary disease. 7. Non ST elevation myocardial infarction. PLAN: She will be started on Xanax p.r.n. t.i.d. She will get scheduled dose at bedtime. Increase her insulin to 20 units before breakfast and dinner. Cut down her steroids since she is not actively wheezing, to better control her hyperglycemia. Also, add Mucomyst to her inhaler since she is complaining of dry cough and is unable to expectorate. Ten Sher MD
[2017-10-11] MEDS: Insulin Detemir 100 units/ml Vial (Levemir) SC SCH (21:48)
[2017-10-12] MEDS: Pantoprazole 40 mg EC Tab PO SCH (05:48)
[2017-10-12] MEDS: Insulin Lispro (HUMAlog) HIGH Coverage SC SCH ×4 (06:53→22:10)
[2017-10-12] MEDS: Insulin Lispro (humaLOG) MIX 75/25(10 ml) SC SCH ×2 (06:54→17:39)
[2017-10-12] MEDS: Budesonide 0.5 mg/2 ml Inhal Susp UD IH SCH ×2 (07:07→20:06)
[2017-10-12] MEDS: Arformoterol 15 mcg/2 ml Inh Sol IH SCH ×2 (07:07→20:06)
--- NOTE | 2017-10-12 07:45 | CP.PCM.PN ---
Subjective - Date & Time of Evaluation Date of Evaluation: 10/12/17 Time of Evaluation: 06:45 - Subjective Subjective: Awake, claimed slept well with CPAP/BIPAP on, no distress,comfortable Reason for consultation and follow up: Continuity of care in TCU, cardiac follow up,history of end-stage chronic obstructive pulmonary disease with a history of pulmonary nodules , diabetes mellitus, coronary artery disease S/P cardiac catheterization and placement of cardiac stents, hypertension. NSTEMI, exacerbation of COPD. Seen and examined by me and Dr. Henry Objective - Vital Signs/Intake and Output Vital Signs (last 24 hours): Temp Pulse Resp BP Pulse Ox 98.8 F 88 20 112/58 L 92 L 10/11/17 16:00 10/11/17 16:29 10/11/17 16:00 10/11/17 17:09 10/11/17 16:29 - Medications Medications: Current Medications Acetaminophen (Tylenol 325mg Tab) 650 mg PO Q4H PRN; Protocol PRN Reason: Pain, Mild (1-3), FEVER >100.4 Last Admin: 10/11/17 22:16 Dose: 650 mg Acetylcysteine (Acetylcysteine 20%) 0 ml IH BID BRIANNA Allopurinol (Zyloprim) 300 mg PO DAILY BRIANNA PRN Reason: Protocol Last Admin: 10/11/17 09:25 Dose: 300 mg Alprazolam (Xanax) 0.25 mg PO HS BRIANNA PRN Reason: Protocol Stop: 10/17/17 22:01 Last Admin: 10/11/17 21:50 Dose: 0.25 mg Alprazolam (Xanax) 0.25 mg PO TID PRN; Protocol PRN Reason: Anxiety Stop: 10/18/17 14:01 Arformoterol Tartrate (Brovana) 15 mcg IH [id number] [facility]ANNA Last Admin: 10/12/17 07:07 Dose: 15 mcg Aspirin (Ecotrin) 81 mg PO 0800 BRIANNA PRN Reason: Protocol Last Admin: 10/11/17 08:16 Dose: 81 mg Atorvastatin Calcium (Lipitor) 20 mg PO DIN BRIANNA PRN Reason: Protocol Last Admin: 10/11/17 17:12 Dose: 20 mg Benzocaine/Menthol (Cepacol Sore Throat) 1 jack MT Q2H PRN; Protocol PRN Reason: Sore Throat Last Admin: 10/11/17 09:24 Dose: 1 jack Budesonide (Pulmicort Respules) 0.5 mg IH [id number] [facility]NA PRN Reason: Protocol Last Admin: 10/12/17 07:07 Dose: 0.5 mg Carvedilol (Coreg) 6.25 mg PO 0800,1800 BRIANNA PRN Reason: Protocol Last Admin: 10/11/17 17:09 Dose: 6.25 mg Clopidogrel Bisulfate (Plavix) 75 mg PO DAILY BRIANNA PRN Reason: Protocol Last Admin: 10/11/17 09:25 Dose: 75 mg Enoxaparin Sodium (Lovenox) 30 mg SC DAILY BRIANNA PRN Reason: Protocol Last Admin: 10/11/17 09:24 Dose: 30 mg Furosemide (Lasix) 40 mg PO DAILY BRIANNA PRN Reason: Protocol Last Admin: 10/11/17 09:24 Dose: 40 mg Gabapentin (Neurontin) 200 mg PO TID BRIANNA PRN Reason: Protocol Last Admin: 10/11/17 17:13 Dose: 200 mg Insulin Detemir (Levemir) 25 unit SC HS BRIANNA PRN Reason: Protocol Last Admin: 10/11/17 21:48 Dose: 25 unit Insulin Human Lispro (Humalog High) 0 units SC ACHS [facility]ANNA PRN Reason: Protocol Last Admin: 10/12/17 06:53 Dose: Not Given Insulin Lispro Protam/Lispro Human (Humalog Mix 75/25) 20 units SC ACBD BRIANNA PRN Reason: Protocol Last Admin: 10/12/17 06:54 Dose: 20 units Isosorbide Mononitrate (Imdur) 60 mg PO 0600 BRIANNA PRN Reason: Protocol Last Admin: 10/12/17 05:47 Dose: 60 mg Levalbuterol HCl (Xopenex) 1.25 mg IH [id number] PRN; Protocol PRN Reason: Shortness of Breath Last Admin: 10/11/17 13:13 Dose: 1.25 mg Levofloxacin (Levaquin) 750 mg PO Q48H [facility] Stop: 10/15/17 07:29 Last Admin: 10/11/17 05:19 Dose: 750 mg Lisinopril (Zestril) 10 mg PO DAILY BRIANNA PRN Reason: Protocol Last Admin: 10/11/17 09:25 Dose: 10 mg Pantoprazole Sodium (Protonix Ec Tab) 40 mg PO 0600 [facility] PRN Reason: Protocol Last Admin: 10/12/17 05:48 Dose: 40 mg Prednisone (Prednisone Tab) 20 mg PO DAILY BRIANNA Ropinirole HCl (Requip) 3 mg PO HS BRIANNA PRN Reason: Protocol Last Admin: 10/11/17 21:49 Dose: 3 mg Tiotropium Hollis (Spiriva) 18 mcg IH DAILY BRIANNA Last Admin: 10/11/17 09:22 Dose: 18 mcg Verapamil HCl (Calan Tab) 40 mg PO TID BRIANNA PRN Reason: Protocol Last Admin: 10/11/17 17:09 Dose: 40 mg - Labs Labs: 10/10/17 06:10 10/10/17 06:10 Assessment and Plan - Assessment and Plan (Free Text) Assessment: A 72 year old female who came in to the ER due to shortness of breath. She had exacerbation of COPD and NSTEMI (positive troponins). Cardiac catherization was done and revealed non obstructive coronary artery disease, treat medically. History of end-stage chronic obstructive pulmonary disease with a history of pulmonary nodules , diabetes mellitus, coronary artery disease S/P cardiac catheterization and placement of cardiac stents, hypertension. Sepsis, Sputum positive for Sphingomonas. ID on consult. Improving clinically, transferred to TCU for reconditioning. Plan: Slept well with BIPAP/CPAP on No distress, comfortable Cardiac status stable Blood pressure and heart rate stable On ASA 81 mg daily,Lipitor 20 mg daily, Coreg 6.25mg BID, Plavix 75 mg daily,Lovenox 30 mg daily,Lasix 40 mg daily Imdur 60 mg daily,Lisinopril 10 mg daily,Calan 40 mg TID,Prednisone 20 mg BID On IV Meropenem and oral Levaquin for sputum positive for Sphingomonas. Physical therapy in progress Continue current treatment Continue current medications Will follow up Plan and treatment discussed with Dr. Henry
[2017-10-12] MEDS: Enoxaparin 30 mg Syringe SC SCH (09:42)
[2017-10-12] MEDS: Tiotropium 18 mcg Cap For Inhalation IH SCH (09:43)
--- NOTE | 2017-10-12 11:47 | CP.PCM.PN ---
Subjective - Date & Time of Evaluation Date of Evaluation: 10/11/17 Time of Evaluation: 10:10 - Subjective Subjective: Comfortable in bed, breathing better, no fevers. Objective - Vital Signs/Intake and Output Vital Signs (last 24 hours): Temp Pulse Resp BP Pulse Ox 98.8 F 88 20 112/58 L 92 L 10/11/17 16:00 10/11/17 16:29 10/11/17 16:00 10/11/17 17:09 10/11/17 16:29 - Medications Medications: Current Medications Acetaminophen (Tylenol 325mg Tab) 650 mg PO Q4H PRN; Protocol PRN Reason: Pain, Mild (1-3), FEVER >100.4 Acetylcysteine (Mucomyst 20% Inhal Jessie (30ml)) 0 ml IH BID [facility] Allopurinol (Zyloprim) 300 mg PO DAILY [facility] PRN Reason: Protocol Last Admin: 10/11/17 09:25 Dose: 300 mg Alprazolam (Xanax) 0.25 mg PO HS [facility] PRN Reason: Protocol Stop: 10/17/17 22:01 Last Admin: 10/10/17 22:21 Dose: 0.25 mg Alprazolam (Xanax) 0.25 mg PO TID PRN; Protocol PRN Reason: Anxiety Stop: 10/18/17 14:01 Arformoterol Tartrate (Brovana) 15 mcg IH [id number] [facility] Last Admin: 10/11/17 07:12 Dose: 15 mcg Aspirin (Ecotrin) 81 mg PO 0800 [facility] PRN Reason: Protocol Last Admin: 10/11/17 08:16 Dose: 81 mg Atorvastatin Calcium (Lipitor) 20 mg PO DIN [facility] PRN Reason: Protocol Last Admin: 10/11/17 17:12 Dose: 20 mg Benzocaine/Menthol (Cepacol Sore Throat) 1 jack MT Q2H PRN; Protocol PRN Reason: Sore Throat Last Admin: 10/11/17 09:24 Dose: 1 jack Budesonide (Pulmicort Respules) 0.5 mg IH [id number] [facility]NA PRN Reason: Protocol Last Admin: 10/11/17 07:12 Dose: Not Given Carvedilol (Coreg) 6.25 mg PO 0800,1800 [facility]NA PRN Reason: Protocol Last Admin: 10/11/17 17:09 Dose: 6.25 mg Clopidogrel Bisulfate (Plavix) 75 mg PO DAILY [facility]NA PRN Reason: Protocol Last Admin: 10/11/17 09:25 Dose: 75 mg Enoxaparin Sodium (Lovenox) 30 mg SC DAILY [facility] PRN Reason: Protocol Last Admin: 10/11/17 09:24 Dose: 30 mg Furosemide (Lasix) 40 mg PO DAILY [facility] PRN Reason: Protocol Last Admin: 10/11/17 09:24 Dose: 40 mg Gabapentin (Neurontin) 200 mg PO TID [facility] PRN Reason: Protocol Last Admin: 10/11/17 17:13 Dose: 200 mg Meropenem 1,000 mg/ Sodium (Chloride) 50 mls @ 100 mls/hr IVPB 0600,1800 B[facility]ANNA PRN Reason: Protocol Stop: 10/12/17 06:01 Last Admin: 10/11/17 17:12 Dose: 100 mls/hr Insulin Detemir (Levemir) 25 unit SC HS [facility]NA PRN Reason: Protocol Last Admin: 10/10/17 22:40 Dose: 25 unit Insulin Human Lispro (Humalog High) 0 units SC ACHS [facility]NA PRN Reason: Protocol Last Admin: 10/11/17 17:10 Dose: 12 unit Insulin Lispro Protam/Lispro Human (Humalog Mix 75/25) 20 units SC ACBD [facility]ANNA PRN Reason: Protocol Last Admin: 10/11/17 17:11 Dose: 20 units Isosorbide Mononitrate (Imdur) 60 mg PO 0600 [facility] PRN Reason: Protocol Last Admin: 10/11/17 05:19 Dose: 60 mg Levalbuterol HCl (Xopenex) 1.25 mg IH [id number] PRN; Protocol PRN Reason: Shortness of Breath Last Admin: 10/11/17 13:13 Dose: 1.25 mg Levofloxacin (Levaquin) 750 mg PO Q48H [facility] Stop: 10/15/17 07:29 Last Admin: 10/11/17 05:19 Dose: 750 mg Lisinopril (Zestril) 10 mg PO DAILY [facility] PRN Reason: Protocol Last Admin: 10/11/17 09:25 Dose: 10 mg Pantoprazole Sodium (Protonix Ec Tab) 40 mg PO 0600 [facility] PRN Reason: Protocol Last Admin: 10/11/17 05:19 Dose: 40 mg Prednisone (Prednisone Tab) 20 mg PO DAILY [facility] Ropinirole HCl (Requip) 3 mg PO HS [facility] PRN Reason: Protocol Last Admin: 10/10/17 22:21 Dose: 3 mg Tiotropium [place] (Spiriva) 18 mcg IH DAILY [facility] Last Admin: 10/11/17 09:22 Dose: 18 mcg Verapamil HCl (Calan Tab) 40 mg PO TID [facility] PRN Reason: Protocol Last Admin: 10/11/17 17:09 Dose: 40 mg - Labs Labs: 10/10/17 06:10 10/10/17 06:10 - Constitutional Appears: Chronically Ill - Head Exam Head Exam: NORMAL INSPECTION - Respiratory Exam Respiratory Exam: Decreased Breath Sounds - Cardiovascular Exam Cardiovascular Exam: +S1, +S2 - GI/Abdominal Exam GI & Abdominal Exam: Soft. absent: Tenderness Assessment and Plan - Assessment and Plan (Free Text) Plan: assessment severe sepsis from Sphingomonas HCAP, improved clinically history of multifocal community-acquired pneumonia end-stage chronic obstructive pulmonary disease with a history of pulmonary nodules diabetes mellitus coronary artery disease S/P cardiac catheterization and placement of cardiac stents hypertension Questionable history of penicillin allergy (rash) and Doxycycline (although she has tolerated doxycycline in past admissions) Plan finished 8 days of Merrem and Levaquin will continue to monitor clinically overall prognosis is poor
--- NOTE | 2017-10-12 13:32 | PN ---
DATE: 10/12/2017 SUBJECTIVE: The patient is 72 years old, seen and examined, doing well, sleepy, but arousable. She states she did not sleep well last night. OBJECTIVE: VITAL SIGNS: She is afebrile, pulse 88, respirations 20, blood pressure 112/58. LUNGS: Bilateral fair airflow. No rhonchi or crackle. HEART: S1, S2 audible. ABDOMEN: Soft, nontender. No rebound, no guarding. NEUROLOGICAL: She is awake, alert, oriented, and communicative. LABORATORY EXAM: Blood sugar this morning was 93, at 5 a.m. was 136, and midday is 93. ASSESSMENT: 1. Status post [id number] myocardial infarction, status post cardiac catheterization. 2. Chronic obstructive pulmonary disease exacerbation. 3. Bronchospasm. 4. Insulin-dependent diabetes. 5. Hypertension. 6. Restless legs syndrome. 7. Deconditioning and difficulty walking. PLAN: We will discontinue Levaquin, she finished a course of 7 days of antibiotics. We will monitor her blood sugar. Continue on DVT prophylaxis. She is on prednisone 20 daily, we will taper it down since she is not wheezing. We will taper down to 10 tomorrow and analgesics as needed. She is on Xanax 0.25 at bedtime. Follow up the patient in a.m. Ten Sher MD
[2017-10-12] MEDS: Acetylcysteine 20% Inhal Soln (4ml) IH SCH (20:05)
[2017-10-12] MEDS: Insulin Detemir 100 units/ml Vial (Levemir) SC SCH (22:10)
[2017-10-13] MEDS: Pantoprazole 40 mg EC Tab PO SCH (06:17)
[2017-10-13] MEDS: Insulin Lispro (humaLOG) MIX 75/25(10 ml) SC SCH ×2 (06:34→16:40)
[2017-10-13] MEDS: Insulin Lispro (HUMAlog) HIGH Coverage SC SCH ×4 (06:34→22:07)
[2017-10-13] MEDS: Arformoterol 15 mcg/2 ml Inh Sol IH SCH ×2 (07:21→19:32)
[2017-10-13] MEDS: Acetylcysteine 20% Inhal Soln (4ml) IH SCH ×3 (07:21→19:38)
[2017-10-13] MEDS: Budesonide 0.5 mg/2 ml Inhal Susp UD IH SCH ×2 (07:22→19:32)
[2017-10-13] MEDS: Enoxaparin 30 mg Syringe SC SCH (10:04)
[2017-10-13] MEDS: Tiotropium 18 mcg Cap For Inhalation IH SCH (10:07)
[2017-10-13] MEDS: Levalbuterol 1.25 MG/3 ML Inhal Soln UD IH PRN ×2 (12:02→19:33)
--- NOTE | 2017-10-13 12:26 | CP.PCM.PN ---
Subjective - Date & Time of Evaluation Date of Evaluation: 10/12/17 Time of Evaluation: 11:45 - Subjective Subjective: Breathing a little better, no fevers, not in distress. Objective - Vital Signs/Intake and Output Vital Signs (last 24 hours): Temp Pulse Resp BP Pulse Ox 98.7 F 67 20 101/48 L 93 L 10/12/17 16:00 10/12/17 16:00 10/12/17 16:00 10/12/17 17:39 10/12/17 16:00 - Medications Medications: Current Medications Acetaminophen (Tylenol 325mg Tab) 650 mg PO Q4H PRN; Protocol PRN Reason: Pain, Mild (1-3), FEVER >100.4 Last Admin: 10/12/17 08:46 Dose: 650 mg Acetylcysteine (Acetylcysteine 20%) 4 ml IH BID [facility] Last Admin: 10/12/17 20:05 Dose: Not Given Allopurinol (Zyloprim) 300 mg PO DAILY BRIANNA PRN Reason: Protocol Last Admin: 10/12/17 09:44 Dose: 300 mg Alprazolam (Xanax) 0.25 mg PO HS BRIANNA PRN Reason: Protocol Stop: 10/17/17 22:01 Last Admin: 10/12/17 22:29 Dose: 0.25 mg Alprazolam (Xanax) 0.25 mg PO TID PRN; Protocol PRN Reason: Anxiety Stop: 10/18/17 14:01 Arformoterol Tartrate (Brovana) 15 mcg IH [id number] BRIANNA Last Admin: 10/12/17 20:06 Dose: 15 mcg Aspirin (Ecotrin) 81 mg PO 0800 [facility]NA PRN Reason: Protocol Last Admin: 10/12/17 08:01 Dose: 81 mg Atorvastatin Calcium (Lipitor) 20 mg PO DIN BRIANNA PRN Reason: Protocol Last Admin: 10/12/17 17:40 Dose: 20 mg Benzocaine/Menthol (Cepacol Sore Throat) 1 jack MT Q2H PRN; Protocol PRN Reason: Sore Throat Last Admin: 10/11/17 09:24 Dose: 1 jack Budesonide (Pulmicort Respules) 0.5 mg IH [id number] BRIANNA PRN Reason: Protocol Last Admin: 10/12/17 20:06 Dose: 0.5 mg Carvedilol (Coreg) 6.25 mg PO 0800,1800 [facility]NA PRN Reason: Protocol Last Admin: 10/12/17 17:39 Dose: Not Given Clopidogrel Bisulfate (Plavix) 75 mg PO DAILY B[facility]ANNA PRN Reason: Protocol Last Admin: 10/12/17 09:43 Dose: 75 mg Enoxaparin Sodium (Lovenox) 30 mg SC DAILY B[facility]ANNA PRN Reason: Protocol Last Admin: 10/12/17 09:42 Dose: 30 mg Furosemide (Lasix) 40 mg PO DAILY B[facility]ANNA PRN Reason: Protocol Last Admin: 10/12/17 09:42 Dose: 40 mg Gabapentin (Neurontin) 200 mg PO TID [facility]ANNA PRN Reason: Protocol Last Admin: 10/12/17 17:41 Dose: 200 mg Insulin Detemir (Levemir) 25 unit SC HS B[facility]ANNA PRN Reason: Protocol Last Admin: 10/12/17 22:10 Dose: 25 unit Insulin Human Lispro (Humalog High) 0 units SC ACHS BRIANNA PRN Reason: Protocol Last Admin: 10/12/17 22:10 Dose: 2 unit Insulin Lispro Protam/Lispro Human (Humalog Mix 75/25) 20 units SC ACBD BRIANNA PRN Reason: Protocol Last Admin: 10/12/17 17:39 Dose: 20 units Isosorbide Mononitrate (Imdur) 60 mg PO 0600 BRIANNA PRN Reason: Protocol Last Admin: 10/12/17 05:47 Dose: 60 mg Levalbuterol HCl (Xopenex) 1.25 mg IH [id number] PRN; Protocol PRN Reason: Shortness of Breath Last Admin: 10/11/17 13:13 Dose: 1.25 mg Lisinopril (Zestril) 10 mg PO DAILY BRIANNA PRN Reason: Protocol Last Admin: 10/12/17 09:44 Dose: 10 mg Pantoprazole Sodium (Protonix Ec Tab) 40 mg PO 0600 BRIANNA PRN Reason: Protocol Last Admin: 10/12/17 05:48 Dose: 40 mg Prednisone (Prednisone Tab) 20 mg PO DAILY [facility] Last Admin: 10/12/17 09:43 Dose: 20 mg Ropinirole HCl (Requip) 3 mg PO HS BRIANNA PRN Reason: Protocol Last Admin: 10/12/17 22:31 Dose: 3 mg Tiotropium [place] (Spiriva) 18 mcg IH DAILY [facility] Last Admin: 10/12/17 09:43 Dose: 18 mcg Verapamil HCl (Calan Tab) 40 mg PO TID BRIANNA PRN Reason: Protocol Last Admin: 10/12/17 17:38 Dose: Not Given - Labs Labs: 10/10/17 06:10 10/10/17 06:10 - Constitutional Appears: Chronically Ill - Head Exam Head Exam: NORMAL INSPECTION - Respiratory Exam Respiratory Exam: Decreased Breath Sounds - Cardiovascular Exam Cardiovascular Exam: +S1, +S2 - GI/Abdominal Exam GI & Abdominal Exam: Soft. absent: Tenderness Assessment and Plan - Assessment and Plan (Free Text) Plan: assessment S/P severe sepsis from Sphingomonas HCAP, improved clinically and S/P treatment with antibiotics history of multifocal community-acquired pneumonia end-stage chronic obstructive pulmonary disease with a history of pulmonary nodules diabetes mellitus coronary artery disease S/P cardiac catheterization and placement of cardiac stents hypertension Questionable history of penicillin allergy (rash) and Doxycycline (although she has tolerated doxycycline in past admissions) Plan finished 8 days of Merrem and Levaquin will continue to monitor clinically off antibiotics since she is at risk for nosocomial infections overall prognosis is poor
--- NOTE | 2017-10-13 13:04 | PN ---
DATE: 10/13/2017 PULMONARY PROGRESS NOTE SUBJECTIVE: The patient is markedly better, sitting in bed, less short of breath,using BiPap at night. Daughter at bedside. Aware of overall status. The patient is doing better today and she is looking forward to discharge on Sunday. PHYSICAL EXAMINATION: VITAL SIGNS: Stable. The patient remains afebrile with a pulse rate of 90, respiratory rate is 16-18, oxygen sat 97% on nasal cannula. NECK: Supple. No bruit or JVD. No lymphadenopathy. CHEST: Global decrease in breath sounds. No wheezing noted. Minimal rhonchi noted. No rales whatsoever. CARDIOVASCULAR: Regular rhythm. S1, S2. Soft systolic ejection murmur unchanged. ABDOMEN: Soft. Bowel sounds normoactive without mass, guarding, rebound or organomegaly. EXTREMITIES: Reveal no clubbing, cyanosis or edema. NEUROLOGIC: No focal findings. SKIN: Shows no rash or excoriation, lymphadenopathy - no lymph nodes present. ASSESSMENT: 1. Status post pneumonia. 2. Severe chronic obstructive pulmonary disease. 3. Hypoxemia. 4. Pulmonary hypertension. 5. Respiratory insufficiency - chronic. 6. Coronary artery disease. 7. Status post myocardial infarction. PLAN: The patient continues to do well. Corticosteroids will be decreased. The patient's status is improving slowly. Long-term prognosis has been discussed with the patient and family on numerous occasions. The long-term prognosis remains guarded, but the patient is doing better at this particular point in time. We will continue to see her until she is discharged and follow up in the office as required. Mk Chamberlain MD
--- NOTE | 2017-10-13 17:45 | PN ---
DATE: 10/13/2017 SUBJECTIVE: The patient is 72-year-old, seen and examined, sitting in chair, seems to be comfortable, gets short of breath on walking, otherwise eating and tolerating. Had bowel movement. PHYSICAL EXAMINATION: VITAL SIGNS: She is afebrile, pulse 94, respirations 18, blood pressure 136/74. LUNGS: Bilateral fair airflow. Diffusely decreased breath sounds. HEART: S1 and S2 audible. ABDOMEN: Soft, nontender. No rebound, no guarding. NEUROLOGIC: The patient is awake, alert, oriented, able to communicate. LABORATORY DATA: Blood sugar is 148. ASSESSMENT: 1. Status post [id number] myocardial infarction. 2. Chronic obstructive pulmonary disease exacerbation. 3. Hypertension. 4. Hyperlipidemia. 5. Restless leg syndrome. 6. Asthmatic bronchitis. 7. Insulin-dependent diabetes. PLAN: We will continue the patient on current medications, monitor blood sugar, encourage ambulation, and continue nebulizer treatment. We will taper down steroids. Ten Sher MD
[2017-10-13] MEDS: Insulin Detemir 100 units/ml Vial (Levemir) SC SCH (22:44)
[2017-10-14] MEDS: Pantoprazole 40 mg EC Tab PO SCH (05:37)
[2017-10-14] MEDS: Insulin Lispro (humaLOG) MIX 75/25(10 ml) SC SCH ×2 (06:46→17:00)
[2017-10-14] MEDS: Insulin Lispro (HUMAlog) HIGH Coverage SC SCH ×4 (06:46→21:29)
[2017-10-14] MEDS: Arformoterol 15 mcg/2 ml Inh Sol IH SCH ×2 (07:08→19:20)
[2017-10-14] MEDS: Acetylcysteine 20% Inhal Soln (4ml) IH SCH ×2 (07:09→19:28)
[2017-10-14] MEDS: Budesonide 0.5 mg/2 ml Inhal Susp UD IH SCH ×2 (07:09→19:20)
[2017-10-14] MEDS: Tiotropium 18 mcg Cap For Inhalation IH SCH (10:09)
[2017-10-14] MEDS: Enoxaparin 30 mg Syringe SC SCH (10:10)
--- NOTE | 2017-10-14 10:57 | PN ---
DATE: 10/14/2017 PULMONARY PROGRESS NOTE SUBJECTIVE: The patient feels better. She is lying in bed without dyspnea. She used the BiPAP last night again. The patient is planning on being discharged now Sunday instead of Sunday. She does not want to lower her corticosteroids any further. She is fearful of having further respiratory distress and is willing to accept the consequences of continuing corticosteroids until she sees me in the office in 1 week. PHYSICAL EXAMINATION: GENERAL: On physical exam, she is resting comfortably. VITAL SIGNS: Stable. She is afebrile, her heart rate is 70, her respiratory rate is 16-18, her oxygen sat is 97% on nasal cannula. NECK: Supple. No jugular venous distention or bruit. CHEST: Global decrease in breath sounds without wheezing or rales. Minimal rhonchi persist. CARDIOVASCULAR: Regular rhythm. S1, S2. Soft systolic ejection murmur is unchanged. ABDOMEN: Soft. Bowel sounds are normoactive without mass or guarding. EXTREMITIES: No clubbing, cyanosis or edema. NEUROLOGIC: No focal findings. Awake and alert, oriented, conversing normally. ASSESSMENT: 1. Steroid dependence. 2. Status post pneumonia. 3. Status post myocardial infarction. 4. Severe chronic obstructive pulmonary disease. 5. Hypoxemia. 6. Pulmonary hypertension. 7. Chronic respiratory insufficiency. 8. Coronary artery disease. PLAN: The patient will continue on prednisone 20 p.o. daily. She does not wish to decrease this medication despite the discussion regarding long-term consequences. We will discuss this again once she is discharged and follows up in my office. No further intervention is required at this time. We will continue to follow her intermittently during her hospitalization and again upon discharge. Thank you for the opportunity to continue to care for this juwan patient. Mk Chamberlain MD
[2017-10-14] MEDS: Levalbuterol 1.25 MG/3 ML Inhal Soln UD IH PRN ×2 (13:22→19:22)
--- NOTE | 2017-10-14 14:50 | CP.PCM.PN ---
Subjective - Date & Time of Evaluation Date of Evaluation: 10/14/17 Time of Evaluation: 10:35 - Subjective Subjective: Not short of breath at rest, no fevers. Objective - Vital Signs/Intake and Output Vital Signs (last 24 hours): Temp Pulse Resp BP Pulse Ox 98.5 F 89 20 121/52 L 98 10/13/17 10:00 10/13/17 22:48 10/13/17 10:00 10/13/17 17:37 10/13/17 10:00 - Medications Medications: Current Medications Acetaminophen (Tylenol 325mg Tab) 650 mg PO Q4H PRN; Protocol PRN Reason: Pain, Mild (1-3), FEVER >100.4 Last Admin: 10/12/17 08:46 Dose: 650 mg Acetylcysteine (Acetylcysteine 20%) 4 ml IH BID [facility] Last Admin: 10/13/17 19:38 Dose: Not Given Allopurinol (Zyloprim) 300 mg PO DAILY B[facility]ANNA PRN Reason: Protocol Last Admin: 10/13/17 10:05 Dose: 300 mg Alprazolam (Xanax) 0.25 mg PO HS BRIANNA PRN Reason: Protocol Stop: 10/17/17 22:01 Last Admin: 10/13/17 22:32 Dose: 0.25 mg Alprazolam (Xanax) 0.25 mg PO TID PRN; Protocol PRN Reason: Anxiety Stop: 10/18/17 14:01 Last Admin: 10/13/17 12:28 Dose: 0.25 mg Arformoterol Tartrate (Brovana) 15 mcg IH [id number] [facility]ANNA Last Admin: 10/13/17 19:32 Dose: 15 mcg Aspirin (Ecotrin) 81 mg PO 0800 B[facility]ANNA PRN Reason: Protocol Last Admin: 10/13/17 08:45 Dose: 81 mg Atorvastatin Calcium (Lipitor) 20 mg PO DIN BRIANNA PRN Reason: Protocol Last Admin: 10/13/17 17:35 Dose: 20 mg Benzocaine/Menthol (Cepacol Sore Throat) 1 jack MT Q2H PRN; Protocol PRN Reason: Sore Throat Last Admin: 10/11/17 09:24 Dose: 1 jack Budesonide (Pulmicort Respules) 0.5 mg IH [id number] BRIANNA PRN Reason: Protocol Last Admin: 10/13/17 19:32 Dose: 0.5 mg Carvedilol (Coreg) 6.25 mg PO 0800,1800 B[facility]ANNA PRN Reason: Protocol Last Admin: 10/13/17 17:35 Dose: 6.25 mg Clopidogrel Bisulfate (Plavix) 75 mg PO DAILY B[facility]ANNA PRN Reason: Protocol Last Admin: 10/13/17 10:05 Dose: 75 mg Enoxaparin Sodium (Lovenox) 30 mg SC DAILY [facility]ANNA PRN Reason: Protocol Last Admin: 10/13/17 10:04 Dose: 30 mg Furosemide (Lasix) 40 mg PO DAILY [facility]ANNA PRN Reason: Protocol Last Admin: 10/13/17 10:04 Dose: 40 mg Gabapentin (Neurontin) 200 mg PO TID B[facility]ANNA PRN Reason: Protocol Last Admin: 10/13/17 17:34 Dose: 200 mg Insulin Detemir (Levemir) 25 unit SC HS BRIANNA PRN Reason: Protocol Last Admin: 10/13/17 22:44 Dose: 25 unit Insulin Human Lispro (Humalog High) 0 units SC ACHS BRIANNA PRN Reason: Protocol Last Admin: 10/13/17 22:07 Dose: Not Given Insulin Lispro Protam/Lispro Human (Humalog Mix 75/25) 20 units SC ACBD BRIANNA PRN Reason: Protocol Last Admin: 10/13/17 16:40 Dose: 20 units Isosorbide Mononitrate (Imdur) 60 mg PO 0600 BRIANNA PRN Reason: Protocol Last Admin: 10/14/17 05:38 Dose: 60 mg Levalbuterol HCl (Xopenex) 1.25 mg IH [id number] PRN; Protocol PRN Reason: Shortness of Breath Last Admin: 10/13/17 19:33 Dose: 1.25 mg Lisinopril (Zestril) 10 mg PO DAILY [facility]ANNA PRN Reason: Protocol Last Admin: 10/13/17 10:06 Dose: 10 mg Pantoprazole Sodium (Protonix Ec Tab) 40 mg PO 0600 BRIANNA PRN Reason: Protocol Last Admin: 10/14/17 05:37 Dose: 40 mg Prednisone (Prednisone Tab) 20 mg PO DAILY [facility]ANNA Last Admin: 10/13/17 10:06 Dose: 20 mg Ropinirole HCl (Requip) 3 mg PO HS BRIANNA PRN Reason: Protocol Last Admin: 10/13/17 21:21 Dose: 3 mg Tiotropium [place] (Spiriva) 18 mcg IH DAILY [facility] Last Admin: 10/13/17 10:07 Dose: 18 mcg Verapamil HCl (Calan Tab) 40 mg PO TID BRIANNA PRN Reason: Protocol Last Admin: 10/13/17 17:37 Dose: 40 mg - Labs Labs: 10/10/17 06:10 10/10/17 06:10 - Constitutional Appears: Chronically Ill - Head Exam Head Exam: NORMAL INSPECTION - Respiratory Exam Respiratory Exam: Decreased Breath Sounds - Cardiovascular Exam Cardiovascular Exam: +S1, +S2 - GI/Abdominal Exam GI & Abdominal Exam: Soft. absent: Tenderness Assessment and Plan - Assessment and Plan (Free Text) Plan: assessment S/P severe sepsis from Sphingomonas HCAP, improved clinically and S/P treatment with antibiotics history of multifocal community-acquired pneumonia end-stage chronic obstructive pulmonary disease with a history of pulmonary nodules diabetes mellitus coronary artery disease S/P cardiac catheterization and placement of cardiac stents hypertension Questionable history of penicillin allergy (rash) and Doxycycline (although she has tolerated doxycycline in past admissions) Plan finished 8 days of Merrem and Levaquin will continue to monitor clinically off antibiotics since she is at risk for hospital-acquired infections overall prognosis is poor
[2017-10-14 16:41] VITALS: RESP 20
[2017-10-14] MEDS: Insulin Detemir 100 units/ml Vial (Levemir) SC SCH (21:29)
--- NOTE | 2017-10-15 00:28 | PN ---
DATE: 10/14/2017 HISTORY OF PRESENT ILLNESS: Ms. Miranda is a 72-year-old female admitted to the hospital with increasing productive cough, chest discomfort. She also has history of CHF with low ejection fraction of 45%, which she was treated with steroid taper down, transferred to TCU for rehab. Still she is short of breath, sitting in the bed with bending down. She is participating in physical therapy. Denies any chest pain. No fever. PAST MEDICAL HISTORY Hypertension, coronary artery disease, hyperlipidemia, restless leg syndrome. ALLERGIES: IODINE, OXAPROZIN, PENICILLIN, ZOLPIDEM. CURRENT MEDICATIONS: Iron 650 every 4 hour p.r.n., allopurinol 300 mg daily, Xanax 0.25 mg p.o. at bedtime, Brovana, aspirin 81 mg daily, Lipitor 20 mg daily, Coreg 6.25 mg p.o. b.i.d., Plavix 75 mg daily, Lovenox 30 subcu, insulin, Zestril, prednisone, Requip, verapamil 40 mg daily. PHYSICAL EXAMINATION: GENERAL: Mild respiratory distress. VITAL SIGNS: Respiratory rate 25 per minute, heart rate is 100 per minute, blood pressure 130/70. HEENT: Pallor positive. NECK: No lymphadenopathy. CHEST: Bilateral air entry present, occasional rhonchi present. No crepitations. CARDIOVASCULAR: Tachycardia present. ABDOMEN: Soft, nontender. No hepatosplenomegaly. EXTREMITIES: No edema. NEUROLOGICAL: Awake, alert, oriented, communicative. MUSCULOSKELETAL: Spine, nontender. LABORATORY DATA: White count 15,000, hemoglobin 12.1, hematocrit 41, platelet 297. Glucose 111. ASSESSMENT: 1. Chronic obstructive pulmonary disease. 2. Ejb-PF-fpqpzomve myocardial infarction. 3. Coronary artery disease. 4. Deconditioning. 5. Leukocytosis. PLAN: She is off antibiotics. Leukocytosis might be related to steroid. Currently, her respiratory status is baseline. Participating in physical therapy. Continue Lovenox 30 mg subcu daily. Insulin sliding scale, blood sugar controlled with current medications, blood pressure controlled with current medications. We will continue to monitor blood work closely. Electrolytes normal. Renal, stable. Jazz Klein MD
[2017-10-15] MEDS: Pantoprazole 40 mg EC Tab PO SCH (05:18)
[2017-10-15] MEDS: Insulin Lispro (HUMAlog) HIGH Coverage SC SCH ×3 (06:46→17:44)
[2017-10-15] MEDS: Insulin Lispro (humaLOG) MIX 75/25(10 ml) SC SCH ×2 (06:46→17:44)
--- NOTE | 2017-10-15 06:50 | CP.PCM.PN ---
Subjective - Date & Time of Evaluation Date of Evaluation: 10/15/17 Time of Evaluation: 06:40 - Subjective Subjective: Awake, sitting in bed, no distress,comfortable Reason for consultation and follow up: Continuity of care in TCU, cardiac follow up,history of end-stage chronic obstructive pulmonary disease with a history of pulmonary nodules , diabetes mellitus, coronary artery disease S/P cardiac catheterization and placement of cardiac stents, hypertension. NSTEMI, exacerbation of COPD. Seen and examined by me and Dr. Henry Objective - Vital Signs/Intake and Output Vital Signs (last 24 hours): Temp Pulse Resp BP Pulse Ox 98.8 F 88 20 121/52 L 98 10/14/17 16:00 10/14/17 22:41 10/14/17 16:00 10/14/17 17:39 10/14/17 10:00 - Medications Medications: Current Medications Acetaminophen (Tylenol 325mg Tab) 650 mg PO Q4H PRN; Protocol PRN Reason: Pain, Mild (1-3), FEVER >100.4 Last Admin: 10/12/17 08:46 Dose: 650 mg Acetylcysteine (Acetylcysteine 20%) 4 ml IH BID [facility] Last Admin: 10/14/17 19:28 Dose: Not Given Allopurinol (Zyloprim) 300 mg PO DAILY BRIANNA PRN Reason: Protocol Last Admin: 10/14/17 10:10 Dose: 300 mg Alprazolam (Xanax) 0.25 mg PO HS BRIANNA PRN Reason: Protocol Stop: 10/17/17 22:01 Last Admin: 10/14/17 22:28 Dose: 0.25 mg Alprazolam (Xanax) 0.25 mg PO TID PRN; Protocol PRN Reason: Anxiety Stop: 10/18/17 14:01 Last Admin: 10/13/17 12:28 Dose: 0.25 mg Arformoterol Tartrate (Brovana) 15 mcg IH [id number] [facility] Last Admin: 10/14/17 19:20 Dose: 15 mcg Aspirin (Ecotrin) 81 mg PO 0800 [facility] PRN Reason: Protocol Last Admin: 10/14/17 08:44 Dose: 81 mg Atorvastatin Calcium (Lipitor) 20 mg PO DIN [facility] PRN Reason: Protocol Last Admin: 10/14/17 17:37 Dose: 20 mg Benzocaine/Menthol (Cepacol Sore Throat) 1 jack MT Q2H PRN; Protocol PRN Reason: Sore Throat Last Admin: 10/11/17 09:24 Dose: 1 jack Budesonide (Pulmicort Respules) 0.5 mg IH [id number] BRIANNA PRN Reason: Protocol Last Admin: 10/14/17 19:20 Dose: 0.5 mg Carvedilol (Coreg) 6.25 mg PO 0800,1800 BRIANNA PRN Reason: Protocol Last Admin: 10/14/17 17:38 Dose: 6.25 mg Clopidogrel Bisulfate (Plavix) 75 mg PO DAILY B[facility]ANNA PRN Reason: Protocol Last Admin: 10/14/17 10:09 Dose: 75 mg Enoxaparin Sodium (Lovenox) 30 mg SC DAILY [facility]ANNA PRN Reason: Protocol Last Admin: 10/14/17 10:10 Dose: 30 mg Furosemide (Lasix) 40 mg PO DAILY [facility]ANNA PRN Reason: Protocol Last Admin: 10/14/17 10:10 Dose: 40 mg Gabapentin (Neurontin) 200 mg PO TID BRIANNA PRN Reason: Protocol Last Admin: 10/14/17 17:36 Dose: 200 mg Insulin Detemir (Levemir) 25 unit SC HS BRIANNA PRN Reason: Protocol Last Admin: 10/14/17 21:29 Dose: 25 unit Insulin Human Lispro (Humalog High) 0 units SC ACHS BRIANNA PRN Reason: Protocol Last Admin: 10/15/17 06:46 Dose: Not Given Insulin Lispro Protam/Lispro Human (Humalog Mix 75/25) 20 units SC ACBD BRIANNA PRN Reason: Protocol Last Admin: 10/15/17 06:46 Dose: Not Given Isosorbide Mononitrate (Imdur) 60 mg PO 0600 BRIANNA PRN Reason: Protocol Last Admin: 10/15/17 05:18 Dose: 60 mg Levalbuterol HCl (Xopenex) 1.25 mg IH [id number] PRN; Protocol PRN Reason: Shortness of Breath Last Admin: 10/14/17 19:22 Dose: 1.25 mg Lisinopril (Zestril) 10 mg PO DAILY BRIANNA PRN Reason: Protocol Last Admin: 10/14/17 10:11 Dose: 10 mg Pantoprazole Sodium (Protonix Ec Tab) 40 mg PO 0600 BRIANNA PRN Reason: Protocol Last Admin: 10/15/17 05:18 Dose: 40 mg Prednisone (Prednisone Tab) 20 mg PO DAILY [facility] Last Admin: 10/14/17 10:10 Dose: 20 mg Ropinirole HCl (Requip) 3 mg PO HS BRIANNA PRN Reason: Protocol Last Admin: 10/14/17 21:17 Dose: 3 mg Tiotropium [place] (Spiriva) 18 mcg IH DAILY [facility] Last Admin: 10/14/17 10:09 Dose: 18 mcg Verapamil HCl (Calan Tab) 40 mg PO TID BRIANNA PRN Reason: Protocol Last Admin: 10/14/17 17:39 Dose: 40 mg - Labs Labs: 10/10/17 06:10 10/10/17 06:10 - Constitutional Appears: No Acute Distress - Eye Exam Eye Exam: Normal appearance - ENT Exam ENT Exam: Mucous Membranes Moist - Respiratory Exam Respiratory Exam: Decreased Breath Sounds, Clear to Ausculation Bilateral, NORMAL BREATHING PATTERN - Cardiovascular Exam Cardiovascular Exam: +S1, +S2 - GI/Abdominal Exam GI & Abdominal Exam: Soft, Normal Bowel Sounds - Extremities Exam Extremities Exam: Normal Capillary Refill - Neurological Exam Neurological Exam: Alert, Awake, Oriented x3 - Psychiatric Exam Psychiatric exam: Normal Affect - Skin Skin Exam: Dry, Warm Assessment and Plan - Assessment and Plan (Free Text) Assessment: A 72 year old female who came in to the ER due to shortness of breath. She had exacerbation of COPD and NSTEMI (positive troponins). Cardiac catherization was done and revealed non obstructive coronary artery disease, treat medically. History of end-stage chronic obstructive pulmonary disease with a history of pulmonary nodules , diabetes mellitus, coronary artery disease S/P cardiac catheterization and placement of cardiac stents, hypertension. Sepsis, Sputum positive for Sphingomonas. ID on consult. Improving clinically, transferred to TCU for reconditioning.Physical therapy in progress. On CPAP/BIPAP at night. Completed antibiotic therapy. Plan: Cardiac status stable Blood pressure and heart rate stable On ASA 81 mg daily,Lipitor 20 mg daily, Coreg 6.25mg BID, Plavix 75 mg daily,Lovenox 30 mg daily,Lasix 40 mg daily Imdur 60 mg daily,Lisinopril 10 mg daily,Calan 40 mg TID,Prednisone 20 mg BID Completed antibiotic therapy Physical therapy in progress Continue current treatment Continue current medications Discharge planning Will follow up Plan and treatment discussed with Dr. Henry
[2017-10-15] MEDS: Arformoterol 15 mcg/2 ml Inh Sol IH SCH ×2 (07:09→19:46)
[2017-10-15] MEDS: Levalbuterol 1.25 MG/3 ML Inhal Soln UD IH PRN ×2 (07:09→13:14)
[2017-10-15] MEDS: Budesonide 0.5 mg/2 ml Inhal Susp UD IH SCH ×2 (07:09→19:46)
[2017-10-15] MEDS: Enoxaparin 30 mg Syringe SC SCH (10:05)
[2017-10-15] MEDS: Tiotropium 18 mcg Cap For Inhalation IH SCH (10:06)
[2017-10-15] MEDS: Acetylcysteine 20% Inhal Soln (4ml) IH SCH ×2 (13:13→19:46)
[2017-10-15 13:50] LABS: ARTERIAL BLOOD GAS HEMOGLOBIN 10.8 g/dL (11.7-17.4); ARTERIAL BLOOD GAS O2 CONTENT 14.5 ML/dl (15-23); ARTERIAL BLOOD GAS O2 SAT 96.5 % (95-98); ARTERIAL BLOOD GAS PH 7.32 (7.35-7.45); ARTERIAL BLOOD GAS TCO2 51.3 mmol.L (22-28)
[2017-10-15 13:54] LABS: ARTERIAL BLOOD GAS PCO2 94 mm/Hg (35-45)
[2017-10-15 13:55] LABS: ARTERIAL BLOOD GAS HCO3 48.4 mmol/L (21-28)
--- NOTE | 2017-10-15 14:39 | PN ---
DATE: 10/15/2017 SUBJECTIVE: The patient is a 72-year-old, seen and examined, lying in bed, seems to be comfortable. No nausea, vomiting or diarrhea. Eating and tolerating. A little shortness of breath on walking, does desaturate up to . PHYSICAL EXAMINATION: VITAL SIGNS: She is afebrile. Pulse 95, respirations 20, blood pressure 148/67. LUNGS: Bilateral good airflow. No rhonchi or crackle. HEART: S1, S2 audible. ABDOMEN: Soft, nontender. No rebound, no guarding. NEUROLOGICAL: The patient is awake, alert, oriented. Able to communicate. EXTREMITIES: Bilateral legs, no edema. LABORATORY DATA: Blood sugar is 243, but 138 fasting and 243 postprandial. ASSESSMENT: 1. Chronic obstructive pulmonary disease exacerbation. 2. Non-ST elevation myocardial infarction. 3. Hypertension. 4. Coronary artery disease. 5. Restless legs syndrome. 6. Ventral hernia. PLAN: We will monitor the blood sugar. I will cut down her steroids. The patient is scheduled to be discharged tomorrow. Ten Sher MD
--- NOTE | 2017-10-15 14:47 | CP.PCM.PN ---
Subjective - Date & Time of Evaluation Date of Evaluation: 10/15/17 Time of Evaluation: 12:25 - Subjective Subjective: Comfortable in bed, no fevers, no increased SOB at rest. Objective - Vital Signs/Intake and Output Vital Signs (last 24 hours): Temp Pulse Resp BP Pulse Ox 98.8 F 74 20 148/67 98 10/14/17 16:00 10/15/17 13:00 10/14/17 16:00 10/15/17 10:06 10/14/17 10:00 - Medications Medications: Current Medications Acetaminophen (Tylenol 325mg Tab) 650 mg PO Q4H PRN; Protocol PRN Reason: Pain, Mild (1-3), FEVER >100.4 Last Admin: 10/12/17 08:46 Dose: 650 mg Acetylcysteine (Acetylcysteine 20%) 4 ml IH BID [facility] Last Admin: 10/15/17 13:13 Dose: 4 ml Allopurinol (Zyloprim) 300 mg PO DAILY BRIANNA PRN Reason: Protocol Last Admin: 10/15/17 10:06 Dose: 300 mg Alprazolam (Xanax) 0.25 mg PO HS [facility] PRN Reason: Protocol Stop: 10/17/17 22:01 Last Admin: 10/14/17 22:28 Dose: 0.25 mg Alprazolam (Xanax) 0.25 mg PO TID PRN; Protocol PRN Reason: Anxiety Stop: 10/18/17 14:01 Last Admin: 10/15/17 12:33 Dose: 0.25 mg Arformoterol Tartrate (Brovana) 15 mcg IH [id number] [facility] Last Admin: 10/15/17 07:09 Dose: 15 mcg Aspirin (Ecotrin) 81 mg PO 0800 [facility] PRN Reason: Protocol Last Admin: 10/15/17 07:59 Dose: 81 mg Atorvastatin Calcium (Lipitor) 20 mg PO DIN BRIANNA PRN Reason: Protocol Last Admin: 10/14/17 17:37 Dose: 20 mg Benzocaine/Menthol (Cepacol Sore Throat) 1 jack MT Q2H PRN; Protocol PRN Reason: Sore Throat Last Admin: 10/11/17 09:24 Dose: 1 jack Budesonide (Pulmicort Respules) 0.5 mg IH [id number] BRIANNA PRN Reason: Protocol Last Admin: 10/15/17 07:09 Dose: 0.5 mg Carvedilol (Coreg) 6.25 mg PO 0800,1800 B[facility] PRN Reason: Protocol Last Admin: 10/15/17 07:59 Dose: 6.25 mg Clopidogrel Bisulfate (Plavix) 75 mg PO DAILY BRIANNA PRN Reason: Protocol Last Admin: 10/15/17 10:05 Dose: 75 mg Furosemide (Lasix) 40 mg PO DAILY BRIANNA PRN Reason: Protocol Last Admin: 10/15/17 10:05 Dose: 40 mg Gabapentin (Neurontin) 200 mg PO TID B[facility]ANNA PRN Reason: Protocol Last Admin: 10/15/17 10:05 Dose: 200 mg Insulin Detemir (Levemir) 25 unit SC HS B[facility]ANNA PRN Reason: Protocol Last Admin: 10/14/17 21:29 Dose: 25 unit Insulin Human Lispro (Humalog High) 0 units SC ACHS [facility] PRN Reason: Protocol Last Admin: 10/15/17 12:34 Dose: 4 unit Insulin Lispro Protam/Lispro Human (Humalog Mix 75/25) 20 units SC ACBD B[facility]AN[facility] PRN Reason: Protocol Last Admin: 10/15/17 06:46 Dose: Not Given Isosorbide Mononitrate (Imdur) 60 mg PO 0600 B[facility] PRN Reason: Protocol Last Admin: 10/15/17 05:18 Dose: 60 mg Levalbuterol HCl (Xopenex) 1.25 mg IH [id number] PRN; Protocol PRN Reason: Shortness of Breath Last Admin: 10/15/17 13:14 Dose: 1.25 mg Lisinopril (Zestril) 10 mg PO DAILY BRIANNA PRN Reason: Protocol Last Admin: 10/15/17 10:06 Dose: 10 mg Pantoprazole Sodium (Protonix Ec Tab) 40 mg PO 0600 B[facility] PRN Reason: Protocol Last Admin: 10/15/17 05:18 Dose: 40 mg Prednisone (Prednisone Tab) 10 mg PO DAILY BRIANNA Ropinirole HCl (Requip) 3 mg PO HS BRIANNA PRN Reason: Protocol Last Admin: 10/14/17 21:17 Dose: 3 mg Tiotropium [place] (Spiriva) 18 mcg IH DAILY BRIANNA Last Admin: 10/15/17 10:06 Dose: 18 mcg Verapamil HCl (Calan Tab) 40 mg PO TID BRIANNA PRN Reason: Protocol Last Admin: 10/15/17 10:04 Dose: 40 mg - Labs Labs: 10/10/17 06:10 10/10/17 06:10 - Constitutional Appears: Chronically Ill - Respiratory Exam Respiratory Exam: Decreased Breath Sounds - Cardiovascular Exam Cardiovascular Exam: +S1, +S2 - GI/Abdominal Exam GI & Abdominal Exam: Soft. absent: Tenderness Assessment and Plan - Assessment and Plan (Free Text) Plan: assessment S/P severe sepsis from Sphingomonas HCAP, improved clinically and S/P treatment with antibiotics history of multifocal community-acquired pneumonia end-stage chronic obstructive pulmonary disease with a history of pulmonary nodules diabetes mellitus coronary artery disease S/P cardiac catheterization and placement of cardiac stents hypertension Questionable history of penicillin allergy (rash) and Doxycycline (although she has tolerated doxycycline in past admissions) Plan finished 8 days of Merrem and Levaquin will continue to monitor clinically off antibiotics since she is at risk for healthcare-associated infections overall prognosis is poor
[2017-10-15 16:26] VITALS: TEMP 98.5; O2SAT 96
[2017-10-15 17:49] VITALS: BP 130/55; PULSE 72
[2017-10-15] MEDS ORDERED: Propofol 10 mg/ml Inj (20 ML) IVP ONE (22:35)
--- NOTE | 2017-10-15 22:49 | PCM.RRT ---
<McmillanGalileo - Last Filed: 10/15/17 23:51> QUARRY BOSS Nurse Assessment - Situation Date: 10/15/17 Time QUARRY BOSS was called: 21:53 QUARRY BOSS Responder Arrival Time: 21:54 QUARRY BOSS Location:: Transitional Care Unit Room Number: 303-1 QUARRY BOSS Reason for Call: Change in Mental Status QUARRY BOSS Called By: RN - IV IV Inserted during QUARRY BOSS?: Yes IV Fluids Initiated During QUARRY BOSS?: yes - Respiratory Oxygen Delivery Method: Intubated Received Nebulizer Treatments:: No Was the Patient Ventilated with Bag/Mask 100% O2?: Yes Secretions Suctioned?: Yes Was the Patient Intubated?: Yes Was the Patient Placed on a Ventilator?: No - Medication Medications Administered During QUARRY BOSS: Atropine 0.5mg IVP - Diagnostic Test Ordered EKG: No Chest X-Ray: No CT Scan: No CPR started during QUARRY BOSS?: No - Vital Signs Vital Sign: HR 45; 150/70; SpO2 83% - Finger Stick Blood Glucose Finger Stick Blood Glucose: 221 - Rafa Coma Scale Coma Scale Eye Opening: No response Coma Scale Motor: Movement to pain stimulus Coma Scale Verbal: No response - Time QUARRY BOSS Ended Time QUARRY BOSS Ended: 22:30 - Vital Signs at end of QUARRY BOSS Vital Signs at end of QUARRY BOSS: Hr 70; 159/70; SpO2 88% - Recommendations 5) QUARRY BOSS Level of Care Recommendations: Transfer to ICU Notifications: Attending Physician, Consultations I.Reason for QUARRY BOSS - A) Acute Change in Patient: (Select all that apply): Acute change in mental status - Neurological Status (Select all that apply): absent: Alert, Responsive, Oriented, Verbal, Follows Commands - Respiratory Oxygen Delivery Method: Intubated - Constitutional Appears: In Acute Distress - Head Head Exam: ATRAUMATIC, NORMOCEPHALIC - Eyes Eye Exam: PERRL - Respiratory Exam Respiratory Exam: Accessory Muscle Use, Rhonchi, Respiratory Distress. absent: Wheezes - Cardiovascular Exam Cardiovascular Exam: Bradycardia, +S1, +S2 - GI/Abdominal Exam GI & Abdominal Exam: Distended, Soft - Neurological Exam Neurological Exam: absent: Alert, Awake, Oriented x3 - Extremities Exam Additional comments: UE/LE BL Cold; Pulses diminished; Pitting LE Edema BL 1+ Plan - Assessment of Findings&Treatment Plan QUARRY BOSS Called at 2153 As per nurses pt. was found to be more unresponsive. Pt was in TCU for physical therapy and has a hx of COPD exacerbation. Earlier today pt PCO2 found in 90s at 1300, placed on BIPAP, with a baseline PCO2 in 70s. Pt. initially appears to be obtunded, nonsresponsive, to verbal painful stimuli or painful stimuli. Pt. saturating in low 80s w/ BiPAP on presentation. Bradycardic w/ HR in 40's and systolic in 150s, hypoxic to 80's. Atropine was given for symptomatic bradycardia and HR increased to 70's. Pt. was subsequently intubated 2/2 hypoxia. ICU consulted and transferred to ICU. Case and plan was seen and discussed w/ Dr. Curry. <Nishi Curry N - Last Filed: 10/16/17 06:22> Addendum Addendum: 10/16/17 06:14 pt with hx of copd and cad ,flight coordinator called by nurse for unresponsiveness .pt was on bipap was gasping for respiration , pt was pulse ox was in 80 going down to 77 . bradycardia with hr of 37 . earliear at afternoon pt was confused and dr nayak was called by nurse who ordered abg , pco2 was 94 at that time. initially pt was assisted with ambu bag . but no improvement .pt was intubated and transferred to icu . case diacussed with dr hays.
[2017-10-15] MEDS ORDERED: Propofol 10 mg/ml 1,000 MG/100 ML VIAL IV PRN (23:23)
--- NOTE | 2017-10-15 23:24 | CP.PCM.CON ---
<Tahir Guerra - Last Filed: 10/15/17 23:53> History of Present Illness - History of Present Illness History of Present Illness: Tahir Guerra PGY-1 Internal Medicine Resident, ICU consult note for Dr Curry. Ms. Miranda is a 72-year-old female the past medical history of COPD on home O2, asthma, bronchitis, DM 2, CAD S/P 8 stents, and hyperlipidemia who presented to the ED with shortness of breath, cough, blood tinged sputum for 2 days on October 04. Pt underwent treatment in the ICU for hypoxic respiratory failure and NSTEMI. Once pt was stable sbe was transferred to tCU on 10/09/17. Today a rapid respince was called at around 9:53pm by the nursing staff because the pt was non responsive. She had been becoming non responsive through the day. Pt would not respond to painful stimuli. Per nursing, pt was on BiPAP throughout the day, but now she was desating into the lower 80's with BiPAP. The decision was made to intubate her and transfer her to the ICU. 12 point ROS was elicited but not obtained due mental status. PMH: As above PSH: Unremarkable Meds: As per MAY Allergies: As noted on [employer] SHX: Former smoker, occasional alcohol use, denies drug use. On home O2, all day. Uses BiPAP at night. FH X: Heart disease and diabetes Past Patient History - Infectious Disease Hx of Infectious Diseases: None - Tetanus Immunizations Tetanus Immunization: Unknown - Past Medical History & Family History Past Medical History?: Yes - Past Social History Smoking Status: Former Smoker - CARDIAC Hx Cardiac Disorders: Yes Hx Hypertension: Yes - PULMONARY Hx Respiratory Disorders: Yes Hx Chronic Obstructive Pulmonary Disease (COPD): Yes - NEUROLOGICAL Hx Neurological Disorder: No - HEENT Hx HEENT Problems: Yes Hx Cataracts: Yes - RENAL Hx Renal Failure: Yes - ENDOCRINE/METABOLIC Hx Diabetes Mellitus Type 2: Yes - HEMATOLOGICAL/ONCOLOGICAL Hx Blood Disorders: Yes Hx Hepatitis B: Yes - INTEGUMENTARY Hx Dermatological Problems: Yes - MUSCULOSKELETAL/RHEUMATOLOGICAL Hx Arthritis: Yes - GASTROINTESTINAL Hx Gastrointestinal Disorders: No (VENTRAL HERNIA) - GENITOURINARY/GYNECOLOGICAL Hx Genitourinary Disorders: No Hx Reproductive Disorders: No - PSYCHIATRIC Hx Psychophysiologic Disorder: Yes Hx Anxiety: Yes Hx Substance Use: No - SURGICAL HISTORY Hx Coronary Stent: Yes (X9) Hx Hysterectomy: Yes (partial) - ANESTHESIA Hx Anesthesia Reactions: No Hx Malignant Hyperthermia: No Meds Allergies/Adverse Reactions: Allergies Allergy/AdvReac Type Severity Reaction Status Date / Time FISH Allergy Severe THROAT Verified 10/08/17 19:03 SWELLING iodine Allergy RASH Verified 10/08/17 19:03 oxaprozin [From Daypro] Allergy RASH Verified 10/08/17 19:03 Penicillins Allergy ANAPHYLAXIS Verified 10/08/17 19:03 zolpidem [From Ambien] AdvReac Intermediate FATIGUE Verified 10/08/17 19:03 Physical Exam - Constitutional Appears: In Acute Distress, Chronically Ill - Head Exam Head Exam: ATRAUMATIC, NORMAL INSPECTION, NORMOCEPHALIC - Eye Exam Eye Exam: EOMI, Normal appearance, PERRL Pupil Exam: NORMAL ACCOMODATION, PERRL - ENT Exam ENT Exam: Mucous Membranes Moist, Normal Exam - Neck Exam Neck exam: Positive for: Normal Inspection - Respiratory Exam Respiratory Exam: Clear to Auscultation Bilateral, NORMAL BREATHING PATTERN - Cardiovascular Exam Cardiovascular Exam: REGULAR RHYTHM - GI/Abdominal Exam GI & Abdominal Exam: Normal Bowel Sounds, Soft. absent: Tenderness - Extremities Exam Extremities exam: Positive for: normal inspection - Back Exam Back exam: NORMAL INSPECTION - Neurological Exam Neurological exam: Alert, CN II-XII Intact, Normal Gait, Oriented x3, Reflexes Normal - Psychiatric Exam Psychiatric exam: Normal Affect, Normal Mood - Skin Skin Exam: Dry, Intact, Normal Color, Warm Results - Vital Signs Recent Vital Signs: Last Vital Signs Temp 98.5 F 10/15/17 10:00 Pulse 72 10/15/17 17:45 Resp 20 10/15/17 10:00 BP 130/55 L 10/15/17 17:45 Pulse Ox 96 10/15/17 10:00 - Labs Result Diagrams: 10/10/17 06:10 10/10/17 06:10 Labs: Laboratory Results - last 24 hr 10/15/17 10/15/17 10/15/17 05:04 11:04 13:40 pCO2 94 H* pO2 81.0 HCO3 48.4 H* ABG pH 7.32 L ABG Total CO2 51.3 H ABG O2 Saturation 96.5 ABG O2 Content 14.5 L ABG Base Excess 18.5 H ABG Hemoglobin 10.8 L ABG Carboxyhemoglobin 1.4 POC ABG HHb (Measured) 3.4 ABG Methemoglobin 0.4 ABG O2 Capacity 15.0 L Hgb O2 Saturation 94.8 L FiO2 32.0 POC Glucose (mg/dL) 138 H 243 H 10/15/17 10/15/17 17:30 21:56 pCO2 pO2 HCO3 ABG pH ABG Total CO2 ABG O2 Saturation ABG O2 Content ABG Base Excess ABG Hemoglobin ABG Carboxyhemoglobin POC ABG HHb (Measured) ABG Methemoglobin ABG O2 Capacity Hgb O2 Saturation FiO2 POC Glucose (mg/dL) 338 H 221 H Assessment & Plan - Assessment and Plan (Free Text) Assessment: 72 yo female with a pertinent medical history of COPD and recent NSTEMI under ICU management for hypercapneic hypoxic respiratory failure needing propofol drip 2/2 AMS. R/o AMI consider infectious causes consider CVA Hx asthma, bronchitis, DM2, CAD s/p 8 stents, HLD Plan: Plan: -intubated with propofol drip, vent settings PRVC, TV 350, RR 16, PEEP 5, FiO2 60 -EKG -trops stat, and next AM -blood cultures ordered -urine cultures ordered -ordered ABG -stat CMP, CBC -AM labs ordered -will follow up after further information is obtained Case s/d with Dr Tono Guerra PGY-1 <Anitha Power - Last Filed: 10/16/17 02:23> Meds - Medications Medications: Current Medications Propofol (Diprivan) 1,000 mg in 100 mls @ 2.068 mls/hr IV .Q24H PRN; Protocol; 5 MCG/KG/MIN PRN Reason: TITRATE PER MD ORDER Results - Vital Signs Recent Vital Signs: Last Vital Signs Temp 98.5 F 10/15/17 10:00 Pulse 72 10/15/17 17:45 Resp 20 10/15/17 10:00 BP 130/55 L 10/15/17 17:45 Pulse Ox 96 10/15/17 10:00 - Labs Result Diagrams: 10/10/17 06:10 10/10/17 06:10 Labs: Laboratory Results - last 24 hr 10/15/17 10/15/17 10/15/17 05:04 11:04 13:40 pCO2 94 H* pO2 81.0 HCO3 48.4 H* ABG pH 7.32 L ABG Total CO2 51.3 H ABG O2 Saturation 96.5 ABG O2 Content 14.5 L ABG Base Excess 18.5 H ABG Hemoglobin 10.8 L ABG Carboxyhemoglobin 1.4 POC ABG HHb (Measured) 3.4 ABG Methemoglobin 0.4 ABG O2 Capacity 15.0 L Hgb O2 Saturation 94.8 L FiO2 32.0 Sodium Potassium Chloride Carbon Dioxide Anion Gap BUN Creatinine Est GFR ( Amer) Est GFR (Non-Af Amer) POC Glucose (mg/dL) 138 H 243 H Random Glucose Calcium Total Bilirubin AST ALT Alkaline Phosphatase Troponin I Total Protein Albumin Globulin Albumin/Globulin Ratio 10/15/17 10/15/17 10/15/17 17:30 21:56 23:35 pCO2 pO2 HCO3 ABG pH ABG Total CO2 ABG O2 Saturation ABG O2 Content ABG Base Excess ABG Hemoglobin ABG Carboxyhemoglobin POC ABG HHb (Measured) ABG Methemoglobin ABG O2 Capacity Hgb O2 Saturation FiO2 Sodium Cancelled Potassium Cancelled Chloride Cancelled Carbon Dioxide Cancelled Anion Gap Cancelled BUN Cancelled Creatinine Cancelled Est GFR ( Amer) Cancelled Est GFR (Non-Af Amer) Cancelled POC Glucose (mg/dL) 338 H 221 H Random Glucose Cancelled Calcium Cancelled Total Bilirubin Cancelled AST Cancelled ALT Cancelled Alkaline Phosphatase Cancelled Troponin I Cancelled Total Protein Cancelled Albumin Cancelled Globulin Cancelled Albumin/Globulin Ratio Cancelled Attending/Attestation - Attestation I have personally seen and examined this patient.: Yes I have fully participated in the care of the patient.: Yes I have reviewed all pertinent clinical information: Yes Notes (Text): 10/16/17 02:22 Agree with documentation. CCT spent :30 minutes.
--- NOTE | 2017-10-16 08:33 | RAD ---
Date of service: 10/15/2017 HISTORY: Post intubation COMPARISON: 10/06/2017. FINDINGS: The endotracheal tube terminates in the right mainstem bronchus. LUNGS: The lungs are hyperinflated. There is nodular airspace disease in the right mid lung and lower lobe. No focal consolidation. PLEURA: No significant pleural effusion identified, no pneumothorax apparent. CARDIOVASCULAR: Normal. OSSEOUS STRUCTURES: No significant abnormalities. VISUALIZED UPPER ABDOMEN: Normal. OTHER FINDINGS: None. IMPRESSION: Endotracheal tube terminates in the right mainstem bronchus. Repositioning is recommended. Nodular airspace disease in the right mid lung and lower lobe may represent severe pulmonary venous congestion, interstitial edema or interstitial pneumonitis. Follow-up is advised.
--- NOTE | 2017-10-16 11:44 | PN ---
DATE: 10/16/2017 PULMONARY PROGRESS NOTE LOCATION: Intensive care unit. SUBJECTIVE: The patient had been doing well on TCU and so yesterday when she had periods of lethargy, she was placed on BiPAP and suddenly a rapid response was called. She was transferred to the Intensive Care Unit where she was intubated and placed on mechanical ventilation. This was done in context of the patient's wishes of no intubation and mechanical ventilation. Long discussion with the patient's daughter and this morning. The patient's wishes were known. She was intubated and placed on mechanical ventilation. I have discussed the situation with both the family and the typesetter perforator operator on-call. We will move for safe extubation at the earliest possible time and make sure that further intubation and mechanical ventilation is not done. The etiology of the patient's deterioration is unclear. Most likely etiologies include sepsis syndrome developing new or mucus plugging. Workup is currently underway for further evaluation and treatment. Case discussed at length with the typesetter perforator operator on-call. PHYSICAL EXAMINATION: GENERAL: The patient is intubated on mechanical ventilation, but remains awake and alert. VITAL SIGNS: Stable. Her respiratory rate is 16, heart rate is 90. She is afebrile. NECK: Supple. No JVD. CHEST: Global decrease in breath sounds. No wheezing appreciated. Minimal rales and rhonchi is noted. CARDIOVASCULAR: Regular rhythm. S1, S2. Soft systolic ejection murmur continue to persist. ABDOMEN: Soft. Bowel sounds normoactive without mass, guarding, rebound or organomegaly. EXTREMITIES: No clubbing, cyanosis or edema. NEUROLOGICAL: No focal findings. SKIN: Dry; intact. ASSESSMENT: 1. Respiratory failure (acute). 2. Possible mucus plugging and/or sepsis. 3. Status post pneumonia. 4. Status post myocardial infarction. 5. Severe chronic obstructive pulmonary disease. 6. Severe coronary artery disease. 7. Hypoxemia. 8. Respiratory insufficiency on home mechanical ventilation. 9. Pulmonary hypertension. PLAN: As discussed above, we will attempt to extubate the patient safely and normalize her blood gases. Continue inhaled bronchodilators, corticosteroids, cardiovascular medications as well as her pulmonary hypertension medications. We will follow closely with you. Once she is extubated, the family is aware that no further intubation would be permitted as per the patient's wishes. We will follow closely with you during the time that she is in the intensive care unit and follow further while on the floor. Thank you for the opportunity to see my patient, Mandy. We will follow closely with you. Mk Chamberlain MD [id number]
--- NOTE | 2017-10-17 03:30 | DS ---
HISTORY OF PRESENT ILLNESS: The patient is 72 years old. When saw yesterday, she was a little sleepy. With the passage of time, she started to become increasingly sleepy, groggy and around 10 o'clock, she started to look confused and minimally responsive. Rapid response was called. The patient was found to be tatum and gasping for air, so she was intubated and was brought to ICU for further management. So the patient was discharged from the TCU and was brought to ICU where she will be followed by me. Ten Sher MD
== END 2017-10-15 22:54 | disposition short-term general hospital (02) | DRG 945 ==
LOC: TRCU 16:07
PROVIDERS: ADMIT Internal Medicine; ATTEND Internal Medicine
PROC: 5A09457 Assistance with Respiratory Ventilation, 24-96 Consecutive Hours, Continuous Positive Airway Pressure (ICD-10-PCS; 2017-10-08)
PROC: F07Z9FZ Gait Training/Functional Ambulation Treatment using Assistive, Adaptive, Supportive or Protective Equipment (ICD-10-PCS; principal; 2017-10-09)
PROC: F08Z4FZ Home Management Treatment using Assistive, Adaptive, Supportive or Protective Equipment (ICD-10-PCS; 2017-10-09)
PROC: 3E0F7GC Introduction of Other Therapeutic Substance into Respiratory Tract, Via Natural or Artificial Opening (ICD-10-PCS; 2017-10-09)
PROC: 0BH17EZ Insertion of Endotracheal Airway into Trachea, Via Natural or Artificial Opening (ICD-10-PCS; 2017-10-15)
DX: R53.1 Weakness (principal); I21.4 Non-ST elevation (NSTEMI) myocardial infarction; J96.91 Respiratory failure, unspecified with hypoxia; J18.9 Pneumonia, unspecified organism; A41.9 Sepsis, unspecified organism; R65.20 Severe sepsis without septic shock; J96.92 Respiratory failure, unspecified with hypercapnia; J44.1 Chronic obstructive pulmonary disease with (acute) exacerbation; J44.0 Chronic obstructive pulmonary disease with (acute) lower respiratory infection; I25.10 Atherosclerotic heart disease of native coronary artery without angina pectoris; G25.81 Restless legs syndrome; R41.82 Altered mental status, unspecified; I11.0 Hypertensive heart disease with heart failure; E78.5 Hyperlipidemia, unspecified; F41.9 Anxiety disorder, unspecified; I27.20 Pulmonary hypertension, unspecified; I50.9 Heart failure, unspecified; E11.65 Type 2 diabetes mellitus with hyperglycemia; T38.0X5A Adverse effect of glucocorticoids and synthetic analogues, initial encounter; R26.2 Difficulty in walking, not elsewhere classified; K43.9 Ventral hernia without obstruction or gangrene; Z79.52 Long term (current) use of systemic steroids; Z99.81 Dependence on supplemental oxygen; Z79.4 Long term (current) use of insulin; Z95.5 Presence of coronary angioplasty implant and graft; Z87.891 Personal history of nicotine dependence; Z88.0 Allergy status to penicillin

== ENCOUNTER 2017-10-15 22:54 | Inpatient (IN) | payer MEDICARE, MEDICAID ==
[2017-10-15 23:31] VITALS: BMI 26.2
[2017-10-16 00:02] LABS: CALCIUM 8.4 mg/dL (8.4-10.5)
[2017-10-16] MEDS ORDERED: Propofol 10 mg/ml 1,000 MG/100 ML VIAL IV PRN (00:03)
[2017-10-16 00:09] LABS: ARTERIAL BLOOD GAS HCO3 35.6 mmol/L (21-28); ARTERIAL BLOOD GAS HEMOGLOBIN 9.9 g/dL (11.7-17.4); ARTERIAL BLOOD GAS O2 CAPACITY 14.1 mL/dl (16-24); ARTERIAL BLOOD GAS O2 CONTENT 13.9 ML/dl (15-23); ARTERIAL BLOOD GAS O2 SAT 98.5 % (95-98); ARTERIAL BLOOD GAS PCO2 50 mm/Hg (35-45); ARTERIAL BLOOD GAS PH 7.46 (7.35-7.45); ARTERIAL BLOOD GAS TCO2 37.1 mmol.L (22-28)
[2017-10-16 00:13] LABS: TROPONIN I 0.14 ng/mL
[2017-10-16] MEDS ORDERED: Sod Polystyrene Sulf 15 gm/60 ml Susp PO ONE (00:50)
[2017-10-16] MEDS ORDERED: Sodium Chloride 0.9% 1,000 ML IV SCH (01:00)
[2017-10-16] MEDS ORDERED: Sodium Chloride 0.9% 1,000 ML IV STA (01:00)
[2017-10-16] MEDS ORDERED: Dextrose 50% SYRINGE Inj (50 ml) IVP ONE (01:39)
[2017-10-16 01:41] LABS: BASO # 0.02 K/mm3 (0.0-2.0); BASO % 0.1 % (0.0-3.0); EOS % 0.1 % (1.5-5.0); GRAN # 13.42 (1.4-6.5); GRAN % 76.8 % (50.0-68.0); HEMOGLOBIN 10.2 g/dL (12.0-16.0); LYMPH # 1.6 (1.2-3.4); LYMPH % 9.3 % (22.0-35.0); MEAN CELL VOLUME 88.9 fl (80.0-105.0); MEAN CORPUSCULAR HEMOGLOBIN 26.4 pg (25.0-35.0); MEAN CORPUSCULAR HGB CONC 29.7 g/dl (31.0-37.0); MEAN PLATELET VOLUME 10.3 fl (7.0-11.0); MONO # 2.4 (0.1-0.6); MONO % 13.7 % (1.0-6.0); RBC 3.86 10^6/uL (3.5-6.1); RED CELL DISTRIBUTION WIDTH 16.5 % (11.5-14.5); WHITE BLOOD COUNT 17.5 10^3/ul (4.5-11.0)
[2017-10-16] MEDS ORDERED: Insulin Regular 1 UNITS/0.01 ML ML SC ONE (01:45)
[2017-10-16] MEDS ORDERED: DOPamine 400mg/250ml D5W 400 MG/250 ML BAG IV PRN (01:49)
[2017-10-16 05:17] LABS: ARTERIAL BLOOD GAS O2 SAT 98.1 % (95-98); ARTERIAL BLOOD GAS PCO2 46 mm/Hg (35-45); ARTERIAL BLOOD GAS PH 7.56 (7.35-7.45); ARTERIAL BLOOD GAS TCO2 42.6 mmol.L (22-28)
[2017-10-16] MEDS ORDERED: Pantoprazole 40 mg EC Tab PO SCH (06:00)
[2017-10-16 07:08] LABS: BASO # 0.02 K/mm3 (0.0-2.0); BASO % 0.1 % (0.0-3.0); EOS % 0.1 % (1.5-5.0); GRAN # 21.41 (1.4-6.5); GRAN % 81.2 % (50.0-68.0); HEMOGLOBIN 11.4 g/dL (12.0-16.0); LYMPH # 1.5 (1.2-3.4); LYMPH % 5.7 % (22.0-35.0); MEAN CELL VOLUME 85.6 fl (80.0-105.0); MEAN CORPUSCULAR HEMOGLOBIN 26.5 pg (25.0-35.0); MEAN CORPUSCULAR HGB CONC 30.9 g/dl (31.0-37.0); MEAN PLATELET VOLUME 9.8 fl (7.0-11.0); MONO # 3.4 (0.1-0.6); MONO % 12.9 % (1.0-6.0); RBC 4.31 10^6/uL (3.5-6.1); RED CELL DISTRIBUTION WIDTH 16.6 % (11.5-14.5)
[2017-10-16 07:09] LABS: ARTERIAL BLOOD GAS HCO3 41.2 mmol/L (21-28)
[2017-10-16 07:11] LABS: ALBUMIN 2.9 g/dL (3.0-4.8); ALT/SGPT 160 U/L (7-56); AST/SGOT 210 U/L (14-36); BLOOD UREA NITROGEN 44 mg/dL (7-21); CALCIUM 8.5 mg/dL (8.4-10.5); GFR AFRICAN-AMERICAN 53; GFR NON-AFRICAN AMERICAN 44
[2017-10-16 07:20] LABS: WHITE BLOOD COUNT 26.3 10^3/ul (4.5-11.0)
[2017-10-16] MEDS: Insulin Reg-LOW-Coverage SC SCH ×4 (07:30→21:33)
[2017-10-16 07:50] LABS: TROPONIN I 0.18 ng/mL
--- NOTE | 2017-10-16 08:40 | RAD ---
Date of service: 10/16/2017 HISTORY: S/P intubation, ETT was pulled out. COMPARISON: 10/15/2017. FINDINGS: Endotracheal tube is low in position and terminates at the anahy to was the right mainstem bronchus. LUNGS: Again seen is pulmonary hyperinflation. There is nodular airspace disease in the right lung with relative sparing of the upper lobe. The left lung is clear. PLEURA: No significant pleural effusion identified, no pneumothorax apparent. CARDIOVASCULAR: Normal. OSSEOUS STRUCTURES: No significant abnormalities. VISUALIZED UPPER ABDOMEN: Normal. OTHER FINDINGS: None. IMPRESSION: Endotracheal tube is low in position and terminates at the anahy to was the right mainstem bronchus. Repositioning is recommended. No change in nodular airspace disease in the right lung which may represent severe pulmonary venous congestion, interstitial edema or pneumonitis. Follow-up is advised. Background of COPD.
[2017-10-16] MEDS ORDERED: NOREPINEPHRINE BIT/0.9 % NACL 4 MG/250 ML BAG IV PRN (09:38)
[2017-10-16] MEDS ORDERED: Meropenem 500 MG in Sodium Chloride 0.9% 50 ML IVPB SCH (09:45)
[2017-10-16] MEDS ORDERED: Meropenem IV 1 gm in NS 50 ML IVPB SCH (10:00)
[2017-10-16] MEDS: Vancomycin 1gm in NS 250ml 1 GM/250 ML BAG IVPB SCH (10:28)
[2017-10-16] MEDS: Albuterol-Ipratrop 3 mg / 0.5 (3 ml) UD IH SCH ×4 (10:30→23:44)
--- NOTE | 2017-10-16 11:19 | CARD ---
APPROVED REPORT Date of service: 10/16/2017 EKG Measurement Heart [id number] <Conclusion> Sinus rhythm with short OK Low voltage QRS Clockwise Rotation. Peaked P in 2,3,AVF Suggestive of Ch.Lung Disease. Non Specific ST_T Changes.
[2017-10-16] MEDS: Meropenem IV 1 gm in NS 50 ML IVPB SCH ×3 (11:33→21:30)
--- NOTE | 2017-10-16 11:52 | CP.CCUPN ---
<Law Graff - Last Filed: 10/16/17 13:43> CCU Subjective - Physician Review Subjective (Free Text): Law Graff, PGY1 Critical Care Progress Note for Dr. Puente Patient was examined at bedside this morning. Patient was febrile with a temperature of 101.7 F. Patient was intubated during time of interview. ROS could not be obtained during interview because of intubation. Durnig time of interview, family was present at bedside and prognosis was discussed. Patient's family made us aware that she previously did not want an endotracheal tube to be placed or to go through resuscitation measures. As a result, patient was DNR/ DNI. Patient was also hypotensive, meeting criteria for sepsis. Family did not consent to TLC central line, instead a PICC line was agreed upon in order to properly manage the blood pressure. Family also agreed to palliative care, which was consulted. Later in the afternoon, patient and family rescinded the DNR/DNI status and patient is now officially full code. After interview was conducted, patient was successfully extubated and placed on NC. CCU Objective - Vital Signs / Intake & Output Vital Signs (Last 4 hours): Vital Signs Temp Pulse Resp BP Pulse Ox 10/16/17 11:00 100.4 F H 99 H 36 H 102/44 L 100 10/16/17 10:56 100.4 F H 91 H 16 100 10/16/17 10:00 106 H Intake and Output (Last 8hrs): Intake & Output 10/15/17 10/16/17 10/16/17 22:59 06:59 14:59 Intake Total 1300 10 Output Total 200 Balance 1100 10 Weight 71.169 kg 70.76 kg Intake: IV 1300 10 Right Foot 1300 Oral 0 Output: Urine 200 Urethral (Clements) 200 - Physical Exam Head: Positive for: Atraumatic, Normocephalic Pupils: Positive for: PERRL Extroacular Muscles: Positive for: EOMI Mouth: Positive for: Moist Mucous Membranes Nose (External): Positive for: Atraumatic, Other (Nasal Cannula ) Respiratory/Chest: Positive for: Rhonchi, Other (Diffuse crackles heard biltarally ). Negative for: Respiratory Distress, Accessory Muscle Use, Wheezes , Rales Cardiovascular: Positive for: Regular Rate and Rhythm, Normal S1, S2, Peripheal Pulses Present. Negative for: Murmurs Abdomen: Positive for: Normal Bowel Sounds. Negative for: Tenderness, Distention, Peritoneal Signs, Rebound, Guarding Upper Extremity: Positive for: Normal Inspection, NORMAL PULSES. Negative for: Cyanosis, Edema Lower Extremity: Positive for: Normal Inspection, NORMAL PULSES. Negative for: Edema, Cyanosis Skin: Positive for: Warm, Dry, Normal Color. Negative for: Rashes - Medications Active Medications: Active Medications Generic Name Dose Route Start Last Admin Trade Name Freq PRN Reason Stop Dose Admin Albuterol/Ipratropium 3 ml 10/16/17 11:30 10/16/17 10:30 Duoneb 3 Mg/0.5 Mg (3 Ml) Ud IH 3 ml [id number] BRIANNA Administration Aspirin 81 mg 10/17/17 10:00 Ecotrin PO DAILY BRIANNA Clopidogrel Bisulfate 75 mg 10/17/17 10:00 Plavix PO DAILY BRIANNA Heparin Sodium (Porcine) 5,000 units 10/16/17 14:00 Heparin SC Q8 BRIANNA Protocol Propofol 1,000 mg in 100 mls @ 2.135 mls/hr 10/16/17 00:03 10/16/17 10:04 Diprivan IV 0 mcg/kg/min .Q24H PRN 0 mls/hr TITRATE PER MD ORDER Titration Protocol 5 MCG/KG/MIN Sodium Chloride 1,000 mls @ 100 mls/hr 10/16/17 01:00 10/16/17 02:37 Sodium Chloride 0.9% IV 100 mls/hr .Q10H BRIANNA Administration Acetaminophen 1,000 mg in 100 mls @ 400 mls/hr 10/16/17 04:40 10/16/17 06:11 Ofirmev IVPB 10/18/17 04:41 400 mls/hr Q6H PRN Administration Temperature NOREPINEPHRINE BIT/0.9 % NACL 4 mg in 250 mls @ 15 mls/hr 10/16/17 09:38 Levophed 4 Mg/ 250 Ml Ns Premixed IV .[id number] PRN TITRATE PER MD ORDER Protocol 4 MCG/MIN Vancomycin HCl 1 gm in 250 mls @ 167 mls/hr 10/16/17 10:00 10/16/17 10:28 Vancomycin 1gm IVPB 167 mls/hr DAILY BRIANNA Administration Protocol Meropenem 50 mls @ 100 mls/hr 10/16/17 11:33 Merrem Iv 1 Gm Premix IVPB 10/24/17 11:34 Q8 [facility] Protocol Insulin Human Regular 0 units 10/16/17 07:30 10/16/17 07:30 Humulin R Low SC Not Given ACHS [facility] Protocol Methylprednisolone 40 mg 10/16/17 14:00 Solu-Medrol IVP Q8 [facility] Pantoprazole Sodium 40 mg 10/16/17 10:15 10/16/17 10:22 Protonix Inj IVP 40 mg DAILY [facility] Administration - Patient Studies Lab Studies: Lab Studies 10/16/17 10/16/17 10/16/17 Range/Units 06:25 06:25 05:30 WBC 26.3 H* D (4.5-11.0) 10^3/ul RBC 4.31 (3.5-6.1) 10^6/uL Hgb 11.4 L (12.0-16.0) g/dL Hct 36.9 (36.0-48.0) % MCV 85.6 D (80.0-105.0) fl MCH 26.5 (25.0-35.0) pg MCHC 30.9 L (31.0-37.0) g/dl RDW 16.6 H (11.5-14.5) % Plt Count 276 (120.0-450.0) 10^3/uL MPV 9.8 (7.0-11.0) fl Gran % 81.2 H (50.0-68.0) % Lymph % (Auto) 5.7 L (22.0-35.0) % Bryan % (Auto) 12.9 H (1.0-6.0) % Eos % (Auto) 0.1 L (1.5-5.0) % Baso % (Auto) 0.1 (0.0-3.0) % Gran # 21.41 H (1.4-6.5) Lymph # (Auto) 1.5 (1.2-3.4) Bryan # (Auto) 3.4 H (0.1-0.6) Eos # (Auto) 0.0 (0.0-0.7) Baso # (Auto) 0.02 (0.0-2.0) K/mm3 pCO2 (35-45) mm/Hg pO2 (80-100) mm/Hg HCO3 (21-28) mmol/L ABG pH (7.35-7.45) ABG Total CO2 (22-28) mmol.L ABG O2 Saturation (95-98) % ABG O2 Content (15-23) ML/dl ABG Base Excess (-2.0-3.0) mmol/L ABG Hemoglobin (11.7-17.4) g/dL ABG Carboxyhemoglobin (0.5-1.5) % POC ABG HHb (Measured) (0-5) % ABG Methemoglobin (0.0-3.0) % ABG O2 Capacity (16-24) mL/dl ABG Potassium (3.6-5.2) mmol/L Hgb O2 Saturation (95.0-98.0) % Glucose (65-105) mg/dl Lactate (0.7-2.1) mmol/L Mechanical Rate FiO2 % Tidal Volume PEEP Sodium 132 (132-148) mmol/L Potassium 4.8 (3.6-5.0) mmol/L Chloride 81 L (98-107) mmol/L Carbon Dioxide > 40 H (21-33) mmol/L Anion Gap 16 (10-20) BUN 44 H (7-21) mg/dL Creatinine 1.2 (0.7-1.2) mg/dl Est GFR ( Amer) 53 Est GFR (Non-Af Amer) 44 Random Glucose 165 H (70-110) mg/dL Calcium 8.5 (8.4-10.5) mg/dL Phosphorus (2.5-4.5) mg/dL Magnesium (1.7-2.2) mg/dL Total Bilirubin 0.5 (0.2-1.3) mg/dL AST 210 H D (14-36) U/L ALT 160 H (7-56) U/L Alkaline Phosphatase 95 (38-126) U/L Troponin I 0.18 H* D ng/mL NT-Pro-B Natriuret Pep 1380 H (0-450) pg/mL Total Protein 5.9 (5.8-8.3) g/dL Albumin 2.9 L (3.0-4.8) g/dL Globulin 2.9 gm/dL Albumin/Globulin Ratio 1.0 L (1.1-1.8) Arterial Blood Potassium (3.6-5.2) mmol/L 10/16/17 10/16/17 10/16/17 Range/Units 05:00 01:30 00:01 WBC 17.5 H (4.5-11.0) 10^3/ul RBC 3.86 (3.5-6.1) 10^6/uL Hgb 10.2 L (12.0-16.0) g/dL Hct 34.3 L (36.0-48.0) % MCV 88.9 (80.0-105.0) fl MCH 26.4 (25.0-35.0) pg MCHC 29.7 L (31.0-37.0) g/dl RDW 16.5 H (11.5-14.5) % Plt Count 245 (120.0-450.0) 10^3/uL MPV 10.3 (7.0-11.0) fl Gran % 76.8 H (50.0-68.0) % Lymph % (Auto) 9.3 L (22.0-35.0) % Bryan % (Auto) 13.7 H (1.0-6.0) % Eos % (Auto) 0.1 L (1.5-5.0) % Baso % (Auto) 0.1 (0.0-3.0) % Gran # 13.42 H (1.4-6.5) Lymph # (Auto) 1.6 (1.2-3.4) Bryan # (Auto) 2.4 H (0.1-0.6) Eos # (Auto) 0.0 (0.0-0.7) Baso # (Auto) 0.02 (0.0-2.0) K/mm3 pCO2 46 H 50 H (35-45) mm/Hg pO2 122.0 H 192.0 H (80-100) mm/Hg HCO3 41.2 H* 35.6 H (21-28) mmol/L ABG pH 7.56 H 7.46 H (7.35-7.45) ABG Total CO2 42.6 H 37.1 H (22-28) mmol.L ABG O2 Saturation 98.1 H 98.5 H (95-98) % ABG O2 Content 13.9 L (15-23) ML/dl ABG Base Excess 16.8 H 10.4 H (-2.0-3.0) mmol/L ABG Hemoglobin 9.9 L (11.7-17.4) g/dL ABG Carboxyhemoglobin 1.0 (0.5-1.5) % POC ABG HHb (Measured) 1.5 (0-5) % ABG Methemoglobin 0.5 (0.0-3.0) % ABG O2 Capacity 14.1 L (16-24) mL/dl ABG Potassium 4.0 (3.6-5.2) mmol/L Hgb O2 Saturation 96.9 (95.0-98.0) % Glucose 181 H (65-105) mg/dl Lactate 1.2 (0.7-2.1) mmol/L Mechanical Rate 16 FiO2 40.0 60.0 % Tidal Volume 350 PEEP 5 Sodium 130.0 L (132-148) mmol/L Potassium (3.6-5.0) mmol/L Chloride 90.0 L (98-107) mmol/L Carbon Dioxide (21-33) mmol/L Anion Gap (10-20) BUN (7-21) mg/dL Creatinine (0.7-1.2) mg/dl Est GFR ( Amer) Est GFR (Non-Af Amer) Random Glucose (70-110) mg/dL Calcium (8.4-10.5) mg/dL Phosphorus (2.5-4.5) mg/dL Magnesium (1.7-2.2) mg/dL Total Bilirubin (0.2-1.3) mg/dL AST (14-36) U/L ALT (7-56) U/L Alkaline Phosphatase (38-126) U/L Troponin I ng/mL NT-Pro-B Natriuret Pep (0-450) pg/mL Total Protein (5.8-8.3) g/dL Albumin (3.0-4.8) g/dL Globulin gm/dL Albumin/Globulin Ratio (1.1-1.8) Arterial Blood Potassium 4.0 (3.6-5.2) mmol/L 10/15/17 10/15/17 Range/Units 23:35 23:35 WBC (4.5-11.0) 10^3/ul RBC (3.5-6.1) 10^6/uL Hgb (12.0-16.0) g/dL Hct (36.0-48.0) % MCV (80.0-105.0) fl MCH (25.0-35.0) pg MCHC (31.0-37.0) g/dl RDW (11.5-14.5) % Plt Count (120.0-450.0) 10^3/uL MPV (7.0-11.0) fl Gran % (50.0-68.0) % Lymph % (Auto) (22.0-35.0) % Bryan % (Auto) (1.0-6.0) % Eos % (Auto) (1.5-5.0) % Baso % (Auto) (0.0-3.0) % Gran # (1.4-6.5) Lymph # (Auto) (1.2-3.4) Bryan # (Auto) (0.1-0.6) Eos # (Auto) (0.0-0.7) Baso # (Auto) (0.0-2.0) K/mm3 pCO2 (35-45) mm/Hg pO2 (80-100) mm/Hg HCO3 (21-28) mmol/L ABG pH (7.35-7.45) ABG Total CO2 (22-28) mmol.L ABG O2 Saturation (95-98) % ABG O2 Content (15-23) ML/dl ABG Base Excess (-2.0-3.0) mmol/L ABG Hemoglobin (11.7-17.4) g/dL ABG Carboxyhemoglobin (0.5-1.5) % POC ABG HHb (Measured) (0-5) % ABG Methemoglobin (0.0-3.0) % ABG O2 Capacity (16-24) mL/dl ABG Potassium (3.6-5.2) mmol/L Hgb O2 Saturation (95.0-98.0) % Glucose (65-105) mg/dl Lactate (0.7-2.1) mmol/L Mechanical Rate FiO2 % Tidal Volume PEEP Sodium 127 L (132-148) mmol/L Potassium 5.5 H (3.6-5.0) mmol/L Chloride 81 L (98-107) mmol/L Carbon Dioxide 37 H (21-33) mmol/L Anion Gap 14 (10-20) BUN 40 H (7-21) mg/dL Creatinine 1.2 (0.7-1.2) mg/dl Est GFR ( Amer) 53 Est GFR (Non-Af Amer) 44 Random Glucose 185 H (70-110) mg/dL Calcium 8.4 (8.4-10.5) mg/dL Phosphorus 4.7 H (2.5-4.5) mg/dL Magnesium 1.9 (1.7-2.2) mg/dL Total Bilirubin 0.3 (0.2-1.3) mg/dL AST 52 H D (14-36) U/L ALT 53 (7-56) U/L Alkaline Phosphatase 80 (38-126) U/L Troponin I 0.14 H* D ng/mL NT-Pro-B Natriuret Pep (0-450) pg/mL Total Protein 5.8 (5.8-8.3) g/dL Albumin 3.0 (3.0-4.8) g/dL Globulin 2.8 gm/dL Albumin/Globulin Ratio 1.0 L (1.1-1.8) Arterial Blood Potassium (3.6-5.2) mmol/L Laboratory Results - last 24 hr 10/15/17 10/15/17 10/16/17 23:35 23:35 00:01 WBC RBC Hgb Hct MCV MCH MCHC RDW Plt Count MPV Gran % Lymph % (Auto) Bryan % (Auto) Eos % (Auto) Baso % (Auto) Gran # Lymph # (Auto) Bryan # (Auto) Eos # (Auto) Baso # (Auto) pCO2 50 H pO2 192.0 H HCO3 35.6 H ABG pH 7.46 H ABG Total CO2 37.1 H ABG O2 Saturation 98.5 H ABG O2 Content 13.9 L ABG Base Excess 10.4 H ABG Hemoglobin 9.9 L ABG Carboxyhemoglobin 1.0 POC ABG HHb (Measured) 1.5 ABG Methemoglobin 0.5 ABG O2 Capacity 14.1 L ABG Potassium Hgb O2 Saturation 96.9 Glucose Lactate Mechanical Rate FiO2 60.0 Tidal Volume PEEP Sodium 127 L Potassium 5.5 H Chloride 81 L Carbon Dioxide 37 H Anion Gap 14 BUN 40 H Creatinine 1.2 Est GFR ( Amer) 53 Est GFR (Non-Af Amer) 44 Random Glucose 185 H Calcium 8.4 Phosphorus 4.7 H Magnesium 1.9 Total Bilirubin 0.3 AST 52 H D ALT 53 Alkaline Phosphatase 80 Troponin I 0.14 H* D NT-Pro-B Natriuret Pep Total Protein 5.8 Albumin 3.0 Globulin 2.8 Albumin/Globulin Ratio 1.0 L Arterial Blood Potassium 10/16/17 10/16/17 10/16/17 01:30 05:00 05:30 WBC 17.5 H RBC 3.86 Hgb 10.2 L Hct 34.3 L MCV 88.9 MCH 26.4 MCHC 29.7 L RDW 16.5 H Plt Count 245 MPV 10.3 Gran % 76.8 H Lymph % (Auto) 9.3 L Bryan % (Auto) 13.7 H Eos % (Auto) 0.1 L Baso % (Auto) 0.1 Gran # 13.42 H Lymph # (Auto) 1.6 Bryan # (Auto) 2.4 H Eos # (Auto) 0.0 Baso # (Auto) 0.02 pCO2 46 H pO2 122.0 H HCO3 41.2 H* ABG pH 7.56 H ABG Total CO2 42.6 H ABG O2 Saturation 98.1 H ABG O2 Content ABG Base Excess 16.8 H ABG Hemoglobin ABG Carboxyhemoglobin POC ABG HHb (Measured) ABG Methemoglobin ABG O2 Capacity ABG Potassium 4.0 Hgb O2 Saturation Glucose 181 H Lactate 1.2 Mechanical Rate 16 FiO2 40.0 Tidal Volume 350 PEEP 5 Sodium 130.0 L Potassium Chloride 90.0 L Carbon Dioxide Anion Gap BUN Creatinine Est GFR ( Amer) Est GFR (Non-Af Amer) Random Glucose Calcium Phosphorus Magnesium Total Bilirubin AST ALT Alkaline Phosphatase Troponin I NT-Pro-B Natriuret Pep 1380 H Total Protein Albumin Globulin Albumin/Globulin Ratio Arterial Blood Potassium 4.0 10/16/17 10/16/17 06:25 06:25 WBC 26.3 H* D RBC 4.31 Hgb 11.4 L Hct 36.9 MCV 85.6 D MCH 26.5 MCHC 30.9 L RDW 16.6 H Plt Count 276 MPV 9.8 Gran % 81.2 H Lymph % (Auto) 5.7 L Bryan % (Auto) 12.9 H Eos % (Auto) 0.1 L Baso % (Auto) 0.1 Gran # 21.41 H Lymph # (Auto) 1.5 Bryan # (Auto) 3.4 H Eos # (Auto) 0.0 Baso # (Auto) 0.02 pCO2 pO2 HCO3 ABG pH ABG Total CO2 ABG O2 Saturation ABG O2 Content ABG Base Excess ABG Hemoglobin ABG Carboxyhemoglobin POC ABG HHb (Measured) ABG Methemoglobin ABG O2 Capacity ABG Potassium Hgb O2 Saturation Glucose Lactate Mechanical Rate FiO2 Tidal Volume PEEP Sodium 132 Potassium 4.8 Chloride 81 L Carbon Dioxide > 40 H Anion Gap 16 BUN 44 H Creatinine 1.2 Est GFR ( Amer) 53 Est GFR (Non-Af Amer) 44 Random Glucose 165 H Calcium 8.5 Phosphorus Magnesium Total Bilirubin 0.5 AST 210 H D ALT 160 H Alkaline Phosphatase 95 Troponin I 0.18 H* D NT-Pro-B Natriuret Pep Total Protein 5.9 Albumin 2.9 L Globulin 2.9 Albumin/Globulin Ratio 1.0 L Arterial Blood Potassium EKG/Cardiology Studies: Cardiology / EKG Studies 10/15/17 23:55 EKG [ELECTROCARDIOGRAM] Routine Comment: Reason For Exam: bradycardia,PEA, nSTEMI 10/16/17 00:05 ELECTROCARDIOGRAM Stat Comment: Reason For Exam: R/o ACS Fingerstick Blood Sugar Results: 138 Review of Systems - Review of Systems Systems not reviewed;Unavailable: Intubated (Patient was intubated during time of interview. After interview, patient was s/p extubation, on NC.) Critical Care Progress Note - Extremities/Vascular Does the Patient have a Central Venous Catheter?: No Does the Patient need a Central Venous Catheter?: Yes (Patient is hypotensive. Family doesn't agree to TLC, agree to PICC line.) Does the Patient have a Clements Catheter?: Yes Does the Patient need a Clements Catheter?: Yes Catheter Insertion Criteria: Need for accurate measurement of output in critically ill patient - Prophylaxis GI Prophylaxis GI: PPI - Prophylaxis DVT Prophylaxis DVT: Heparin SQ Assessment/Plan - Assessment and Plan (Free Text) Assessment: Patient is a 72 y/o F with PMHx of COPD (on home O2), asthma, bronchitis, DM type II, CAD (s/p x8 stents), HLD who presented to ED on October 04, 2017 for shortness of breath, cough, and blood tinged sputum. Patient was admitted to ICU during prior visit for hypoxic respiratory failure and NSTEMI. Patient was eventually stabilized and sent to tCU on 10/09/17. However, on 10/15, patient was found unresponsive by nursing staff and BUSINESS EXCELLENCE MANAGER was called. Patient was desaturating and intubated. Patient was transferred to ICU for management. Since overnight, patient has been febrile, tachycardic, and tachypnic. Patient has met criteria for sepsis; as a result, patient received septic work up; hydration, antibiotic coverage, and pancultures to determine source of infection. Patient's recent CXR indicated possible severe pulmonary venous congestion, interstitial edema, or pneumonitis. Family present at bedside in the ICU. Determined that patient was DNR/DNI. However, later in the afternoon, it was discussed with patient and family that the DNR/DNI status was rescinded and patient is now full code. Patient is in need of pressors for BP management; family did not consent for TLC central line, however, agreed for PICC line. Patient is currently being followed by cardiology, ID, pulmonology, and palliative care. Patient was successfully extubated in the ICU and respiratory status has improved. Patient is currently in the ICU for management of sepsis of undetermined source and hypercapnic respiratory failure. Plan: Neuro: - Maintain normothermia Pulm: - s/p extubation, currently on nasal cannula and saturating well - Hypercapnia and hypoxia is improving on abg - CXR (10/16): low ET tube. Reposition. No change in nodular airspace disease in R-lung which may represent severe pulmonary venous congestion, interstitial edema, or pneumonitis. - Pulm consulted, f/u recs - maintain SaO2 88-92% (on home oxygen) - duonebs - solumedrol Cardio: - Hypotensive episodes, continue to monitor BP - PICC line, start on Levophed (family does not agree to TLC central line) - Cardio consulted, f/u recs - Maintain MAP > 65 - c/w ASA/Plavix home meds - Hold blood pressure medications for now - Old Echo: EF 35% GI: - GI ppx: PTX Renal: - Replete lytes as needed - Latest BUN/Cr is 44/1.2 (close to baseline) Heme: - DVT ppx: heparin SC ID: - Sepsis workup - WBC trending upwards (26.3), patient is febrile, monitor cbc - f/u blood cx, sputum cx, urine cx - f/u procalcitonin - antibiotic coverage: vanco and meropenem - Tylenol - ID consulted, f/u recs Endo: - Maintain euglycemia - ISS - Accuchecks ACHS Code status: DNR/DNI was rescinded. Patient is now Full Code. Dispo: Patient will continue to be monitored in the ICU. Case was reviewed and discussed with Attending Physician Dr. Puente. <Khurram Puente - Last Filed: 10/16/17 14:30> CCU Objective - Vital Signs / Intake & Output Vital Signs (Last 4 hours): Vital Signs Temp Pulse Resp BP Pulse Ox 10/16/17 11:00 100.4 F H 99 H 36 H 102/44 L 100 10/16/17 10:56 100.4 F H 91 H 16 100 Intake and Output (Last 8hrs): Intake & Output 10/15/17 10/16/17 10/16/17 22:59 06:59 14:59 Intake Total 1300 10 Output Total 200 Balance 1100 10 Weight 156 lb 14.4 oz 156 lb Intake: IV 1300 10 Right Foot 1300 Oral 0 Output: Urine 200 Urethral (Clements) 200 - Medications Active Medications: Active Medications Generic Name Dose Route Start Last Admin Trade Name Freq PRN Reason Stop Dose Admin Albuterol/Ipratropium 3 ml 10/16/17 11:30 10/16/17 10:30 Duoneb 3 Mg/0.5 Mg (3 Ml) Ud IH 3 ml [id number] BRIANNA Administration Aspirin 81 mg 10/17/17 10:00 Ecotrin PO DAILY BRIANNA Clopidogrel Bisulfate 75 mg 10/17/17 10:00 Plavix PO DAILY BRIANNA Heparin Sodium (Porcine) 5,000 units 10/16/17 14:00 10/16/17 13:39 Heparin SC 5,000 units Q8 BRIANNA Administration Protocol Propofol 1,000 mg in 100 mls @ 2.135 mls/hr 10/16/17 00:03 10/16/17 10:04 Diprivan IV 0 mcg/kg/min .Q24H PRN 0 mls/hr TITRATE PER MD ORDER Titration Protocol 5 MCG/KG/MIN Acetaminophen 1,000 mg in 100 mls @ 400 mls/hr 10/16/17 04:40 10/16/17 06:11 Ofirmev IVPB 10/18/17 04:41 400 mls/hr Q6H PRN Administration Temperature NOREPINEPHRINE BIT/0.9 % NACL 4 mg in 250 mls @ 15 mls/hr 10/16/17 09:38 Levophed 4 Mg/ 250 Ml Ns Premixed IV .[id number] PRN TITRATE PER MD ORDER Protocol 4 MCG/MIN Vancomycin HCl 1 gm in 250 mls @ 167 mls/hr 10/16/17 10:00 10/16/17 10:28 Vancomycin 1gm IVPB 167 mls/hr DAILY BRIANNA Administration Protocol Meropenem 50 mls @ 100 mls/hr 10/16/17 11:33 10/16/17 11:33 Merrem Iv 1 Gm Premix IVPB 10/24/17 11:34 Not Given Q8 BRIANNA Protocol Insulin Human Regular 0 units 10/16/17 07:30 10/16/17 11:30 Humulin R Low SC Not Given ACHS BRIANNA Protocol Methylprednisolone 40 mg 10/16/17 14:00 10/16/17 13:39 Solu-Medrol IVP 40 mg Q8 BRIANNA Administration Pantoprazole Sodium 40 mg 10/16/17 10:15 10/16/17 10:22 Protonix Inj IVP 40 mg DAILY BRIANNA Administration - Patient Studies Lab Studies: Lab Studies 10/16/17 10/16/17 10/16/17 Range/Units 06:25 06:25 06:25 WBC 26.3 H* D (4.5-11.0) 10^3/ul RBC 4.31 (3.5-6.1) 10^6/uL Hgb 11.4 L (12.0-16.0) g/dL Hct 36.9 (36.0-48.0) % MCV 85.6 D (80.0-105.0) fl MCH 26.5 (25.0-35.0) pg MCHC 30.9 L (31.0-37.0) g/dl RDW 16.6 H (11.5-14.5) % Plt Count 276 (120.0-450.0) 10^3/uL MPV 9.8 (7.0-11.0) fl Gran % 81.2 H (50.0-68.0) % Lymph % (Auto) 5.7 L (22.0-35.0) % Bryan % (Auto) 12.9 H (1.0-6.0) % Eos % (Auto) 0.1 L (1.5-5.0) % Baso % (Auto) 0.1 (0.0-3.0) % Gran # 21.41 H (1.4-6.5) Lymph # (Auto) 1.5 (1.2-3.4) Bryan # (Auto) 3.4 H (0.1-0.6) Eos # (Auto) 0.0 (0.0-0.7) Baso # (Auto) 0.02 (0.0-2.0) K/mm3 pCO2 (35-45) mm/Hg pO2 (80-100) mm/Hg HCO3 (21-28) mmol/L ABG pH (7.35-7.45) ABG Total CO2 (22-28) mmol.L ABG O2 Saturation (95-98) % ABG O2 Content (15-23) ML/dl ABG Base Excess (-2.0-3.0) mmol/L ABG Hemoglobin (11.7-17.4) g/dL ABG Carboxyhemoglobin (0.5-1.5) % POC ABG HHb (Measured) (0-5) % ABG Methemoglobin (0.0-3.0) % ABG O2 Capacity (16-24) mL/dl ABG Potassium (3.6-5.2) mmol/L Hgb O2 Saturation (95.0-98.0) % Glucose (65-105) mg/dl Lactate (0.7-2.1) mmol/L Mechanical Rate FiO2 % Tidal Volume PEEP Sodium 132 (132-148) mmol/L Potassium 4.8 (3.6-5.0) mmol/L Chloride 81 L (98-107) mmol/L Carbon Dioxide > 40 H (21-33) mmol/L Anion Gap 16 (10-20) BUN 44 H (7-21) mg/dL Creatinine 1.2 (0.7-1.2) mg/dl Est GFR ( Amer) 53 Est GFR (Non-Af Amer) 44 Random Glucose 165 H (70-110) mg/dL Calcium 8.5 (8.4-10.5) mg/dL Phosphorus (2.5-4.5) mg/dL Magnesium (1.7-2.2) mg/dL Total Bilirubin 0.5 (0.2-1.3) mg/dL AST 210 H D (14-36) U/L ALT 160 H (7-56) U/L Alkaline Phosphatase 95 (38-126) U/L Troponin I 0.18 H* D ng/mL NT-Pro-B Natriuret Pep (0-450) pg/mL Total Protein 5.9 (5.8-8.3) g/dL Albumin 2.9 L (3.0-4.8) g/dL Globulin 2.9 gm/dL Albumin/Globulin Ratio 1.0 L (1.1-1.8) Procalcitonin 0.43 (0.19-0.49) NG/ML Arterial Blood Potassium (3.6-5.2) mmol/L 10/16/17 10/16/17 10/16/17 Range/Units 05:30 05:00 01:30 WBC 17.5 H (4.5-11.0) 10^3/ul RBC 3.86 (3.5-6.1) 10^6/uL Hgb 10.2 L (12.0-16.0) g/dL Hct 34.3 L (36.0-48.0) % MCV 88.9 (80.0-105.0) fl MCH 26.4 (25.0-35.0) pg MCHC 29.7 L (31.0-37.0) g/dl RDW 16.5 H (11.5-14.5) % Plt Count 245 (120.0-450.0) 10^3/uL MPV 10.3 (7.0-11.0) fl Gran % 76.8 H (50.0-68.0) % Lymph % (Auto) 9.3 L (22.0-35.0) % Bryan % (Auto) 13.7 H (1.0-6.0) % Eos % (Auto) 0.1 L (1.5-5.0) % Baso % (Auto) 0.1 (0.0-3.0) % Gran # 13.42 H (1.4-6.5) Lymph # (Auto) 1.6 (1.2-3.4) Bryan # (Auto) 2.4 H (0.1-0.6) Eos # (Auto) 0.0 (0.0-0.7) Baso # (Auto) 0.02 (0.0-2.0) K/mm3 pCO2 46 H (35-45) mm/Hg pO2 122.0 H (80-100) mm/Hg HCO3 41.2 H* (21-28) mmol/L ABG pH 7.56 H (7.35-7.45) ABG Total CO2 42.6 H (22-28) mmol.L ABG O2 Saturation 98.1 H (95-98) % ABG O2 Content (15-23) ML/dl ABG Base Excess 16.8 H (-2.0-3.0) mmol/L ABG Hemoglobin (11.7-17.4) g/dL ABG Carboxyhemoglobin (0.5-1.5) % POC ABG HHb (Measured) (0-5) % ABG Methemoglobin (0.0-3.0) % ABG O2 Capacity (16-24) mL/dl ABG Potassium 4.0 (3.6-5.2) mmol/L Hgb O2 Saturation (95.0-98.0) % Glucose 181 H (65-105) mg/dl Lactate 1.2 (0.7-2.1) mmol/L Mechanical Rate 16 FiO2 40.0 % Tidal Volume 350 PEEP 5 Sodium 130.0 L (132-148) mmol/L Potassium (3.6-5.0) mmol/L Chloride 90.0 L (98-107) mmol/L Carbon Dioxide (21-33) mmol/L Anion Gap (10-20) BUN (7-21) mg/dL Creatinine (0.7-1.2) mg/dl Est GFR ( Amer) Est GFR (Non-Af Amer) Random Glucose (70-110) mg/dL Calcium (8.4-10.5) mg/dL Phosphorus (2.5-4.5) mg/dL Magnesium (1.7-2.2) mg/dL Total Bilirubin (0.2-1.3) mg/dL AST (14-36) U/L ALT (7-56) U/L Alkaline Phosphatase (38-126) U/L Troponin I ng/mL NT-Pro-B Natriuret Pep 1380 H (0-450) pg/mL Total Protein (5.8-8.3) g/dL Albumin (3.0-4.8) g/dL Globulin gm/dL Albumin/Globulin Ratio (1.1-1.8) Procalcitonin (0.19-0.49) NG/ML Arterial Blood Potassium 4.0 (3.6-5.2) mmol/L 10/16/17 10/15/17 10/15/17 Range/Units 00:01 23:35 23:35 WBC (4.5-11.0) 10^3/ul RBC (3.5-6.1) 10^6/uL Hgb (12.0-16.0) g/dL Hct (36.0-48.0) % MCV (80.0-105.0) fl MCH (25.0-35.0) pg MCHC (31.0-37.0) g/dl RDW (11.5-14.5) % Plt Count (120.0-450.0) 10^3/uL MPV (7.0-11.0) fl Gran % (50.0-68.0) % Lymph % (Auto) (22.0-35.0) % Bryan % (Auto) (1.0-6.0) % Eos % (Auto) (1.5-5.0) % Baso % (Auto) (0.0-3.0) % Gran # (1.4-6.5) Lymph # (Auto) (1.2-3.4) Bryan # (Auto) (0.1-0.6) Eos # (Auto) (0.0-0.7) Baso # (Auto) (0.0-2.0) K/mm3 pCO2 50 H (35-45) mm/Hg pO2 192.0 H (80-100) mm/Hg HCO3 35.6 H (21-28) mmol/L ABG pH 7.46 H (7.35-7.45) ABG Total CO2 37.1 H (22-28) mmol.L ABG O2 Saturation 98.5 H (95-98) % ABG O2 Content 13.9 L (15-23) ML/dl ABG Base Excess 10.4 H (-2.0-3.0) mmol/L ABG Hemoglobin 9.9 L (11.7-17.4) g/dL ABG Carboxyhemoglobin 1.0 (0.5-1.5) % POC ABG HHb (Measured) 1.5 (0-5) % ABG Methemoglobin 0.5 (0.0-3.0) % ABG O2 Capacity 14.1 L (16-24) mL/dl ABG Potassium (3.6-5.2) mmol/L Hgb O2 Saturation 96.9 (95.0-98.0) % Glucose (65-105) mg/dl Lactate (0.7-2.1) mmol/L Mechanical Rate FiO2 60.0 % Tidal Volume PEEP Sodium 127 L (132-148) mmol/L Potassium 5.5 H (3.6-5.0) mmol/L Chloride 81 L (98-107) mmol/L Carbon Dioxide 37 H (21-33) mmol/L Anion Gap 14 (10-20) BUN 40 H (7-21) mg/dL Creatinine 1.2 (0.7-1.2) mg/dl Est GFR ( Amer) 53 Est GFR (Non-Af Amer) 44 Random Glucose 185 H (70-110) mg/dL Calcium 8.4 (8.4-10.5) mg/dL Phosphorus 4.7 H (2.5-4.5) mg/dL Magnesium 1.9 (1.7-2.2) mg/dL Total Bilirubin 0.3 (0.2-1.3) mg/dL AST 52 H D (14-36) U/L ALT 53 (7-56) U/L Alkaline Phosphatase 80 (38-126) U/L Troponin I 0.14 H* D ng/mL NT-Pro-B Natriuret Pep (0-450) pg/mL Total Protein 5.8 (5.8-8.3) g/dL Albumin 3.0 (3.0-4.8) g/dL Globulin 2.8 gm/dL Albumin/Globulin Ratio 1.0 L (1.1-1.8) Procalcitonin (0.19-0.49) NG/ML Arterial Blood Potassium (3.6-5.2) mmol/L Laboratory Results - last 24 hr 10/15/17 10/15/17 10/16/17 23:35 23:35 00:01 WBC RBC Hgb Hct MCV MCH MCHC RDW Plt Count MPV Gran % Lymph % (Auto) [place] % (Auto) Eos % (Auto) Baso % (Auto) Gran # Lymph # (Auto) [place] # (Auto) Eos # (Auto) Baso # (Auto) pCO2 50 H pO2 192.0 H HCO3 35.6 H ABG pH 7.46 H ABG Total CO2 37.1 H ABG O2 Saturation 98.5 H ABG O2 Content 13.9 L ABG Base Excess 10.4 H ABG Hemoglobin 9.9 L ABG Carboxyhemoglobin 1.0 POC ABG HHb (Measured) 1.5 ABG Methemoglobin 0.5 ABG O2 Capacity 14.1 L ABG Potassium Hgb O2 Saturation 96.9 Glucose Lactate Mechanical Rate FiO2 60.0 Tidal Volume PEEP Sodium 127 L Potassium 5.5 H Chloride 81 L Carbon Dioxide 37 H Anion Gap 14 BUN 40 H Creatinine 1.2 Est GFR ( Amer) 53 Est GFR (Non-Af Amer) 44 Random Glucose 185 H Calcium 8.4 Phosphorus 4.7 H Magnesium 1.9 Total Bilirubin 0.3 AST 52 H D ALT 53 Alkaline Phosphatase 80 Troponin I 0.14 H* D NT-Pro-B Natriuret Pep Total Protein 5.8 Albumin 3.0 Globulin 2.8 Albumin/Globulin Ratio 1.0 L Procalcitonin Arterial Blood Potassium 10/16/17 10/16/17 10/16/17 01:30 05:00 05:30 WBC 17.5 H RBC 3.86 Hgb 10.2 L Hct 34.3 L MCV 88.9 MCH 26.4 MCHC 29.7 L RDW 16.5 H Plt Count 245 MPV 10.3 Gran % 76.8 H Lymph % (Auto) 9.3 L [place] % (Auto) 13.7 H Eos % (Auto) 0.1 L Baso % (Auto) 0.1 Gran # 13.42 H Lymph # (Auto) 1.6 [place] # (Auto) 2.4 H Eos # (Auto) 0.0 Baso # (Auto) 0.02 pCO2 46 H pO2 122.0 H HCO3 41.2 H* ABG pH 7.56 H ABG Total CO2 42.6 H ABG O2 Saturation 98.1 H ABG O2 Content ABG Base Excess 16.8 H ABG Hemoglobin ABG Carboxyhemoglobin POC ABG HHb (Measured) ABG Methemoglobin ABG O2 Capacity ABG Potassium 4.0 Hgb O2 Saturation Glucose 181 H Lactate 1.2 Mechanical Rate 16 FiO2 40.0 Tidal Volume 350 PEEP 5 Sodium 130.0 L Potassium Chloride 90.0 L Carbon Dioxide Anion Gap BUN Creatinine Est GFR ( Amer) Est GFR (Non-Af Amer) Random Glucose Calcium Phosphorus Magnesium Total Bilirubin AST ALT Alkaline Phosphatase Troponin I NT-Pro-B Natriuret Pep 1380 H Total Protein Albumin Globulin Albumin/Globulin Ratio Procalcitonin Arterial Blood Potassium 4.0 10/16/17 10/16/17 10/16/17 06:25 06:25 06:25 WBC 26.3 H* D RBC 4.31 Hgb 11.4 L Hct 36.9 MCV 85.6 D MCH 26.5 MCHC 30.9 L RDW 16.6 H Plt Count 276 MPV 9.8 Gran % 81.2 H Lymph % (Auto) 5.7 L [place] % (Auto) 12.9 H Eos % (Auto) 0.1 L Baso % (Auto) 0.1 Gran # 21.41 H Lymph # (Auto) 1.5 [place] # (Auto) 3.4 H Eos # (Auto) 0.0 Baso # (Auto) 0.02 pCO2 pO2 HCO3 ABG pH ABG Total CO2 ABG O2 Saturation ABG O2 Content ABG Base Excess ABG Hemoglobin ABG Carboxyhemoglobin POC ABG HHb (Measured) ABG Methemoglobin ABG O2 Capacity ABG Potassium Hgb O2 Saturation Glucose Lactate Mechanical Rate FiO2 Tidal Volume PEEP Sodium 132 Potassium 4.8 Chloride 81 L Carbon Dioxide > 40 H Anion Gap 16 BUN 44 H Creatinine 1.2 Est GFR ( Amer) 53 Est GFR (Non-Af Amer) 44 Random Glucose 165 H Calcium 8.5 Phosphorus Magnesium Total Bilirubin 0.5 AST 210 H D ALT 160 H Alkaline Phosphatase 95 Troponin I 0.18 H* D NT-Pro-B Natriuret Pep Total Protein 5.9 Albumin 2.9 L Globulin 2.9 Albumin/Globulin Ratio 1.0 L Procalcitonin 0.43 Arterial Blood Potassium EKG/Cardiology Studies: Cardiology / EKG Studies 10/16/17 00:05 ELECTROCARDIOGRAM Stat Comment: Reason For Exam: R/o ACS Critical Care Progress Note - Nutrition Nutrition: Nutrition Category Date Time Status Consistent Carbohydrate [DIET] Diets 10/16/17 Lunch Ordered Attending/Attestation - Attestation I have personally seen and examined this patient.: Yes I have fully participated in the care of the patient.: Yes I have reviewed all pertinent clinical information: Yes Notes (Text): 10/16/17 14:23 The patient was seen and examined at the bedside. Patient care was discussed with resident Medical records, lab studies, and imaging were reviewed and management issues were discussed and formulated. Agree with above treatment plans as outlined in 's note with addition of the following: Acute Respiratory Failure \ Hypoxemia \ Hypercapnea \ Septic shock \ COPD \ PNA \ NSTEMI \ DM2 \ Elevated LFT -hemodynamic monitoring to maintain MAP>65; f\u ECG and CE; cardiology team f\u -continue ASa and Plavix; hold off Bblockers as pt hypotensive overnight; likely a Type 2 ME -off vasopressor support post extubation -mechanical ventilation and o2 supplementation to maintain Spo2 >90 Pao2>60 -monitor for TV 6ml\kg IBW and plateau pressure <30 -ABG and CXR were reviewed ; PS trial of 8 PS plus 5 Peep was tolerated well -Pt able to protect airway and has good cough and gag; pt was extubated; monitor airway closely; Bipap PRN and HS -continue nebs and pulmonary toileting -start broad spectrum Abx and and f\u cultures ; ID team f\u -f\u Bun\Cr and U\o; monitor and replace e-lites; d\c IVF -start PO diet as tolerated; continue aspiration precautions -f\u serial LFT -ISS and BGM monitoring -DVT \ PUD prophylaxis -Goals of car and advance directives d\w family in detail. Pt's family initially stated that pt was DNR and was not to be intubated. However later in the day after meeting with palliation team they revoked the DNR and requested full aggressive measures including CPR. CCM eval time , including family meeting 43min
[2017-10-16] MEDS: MethylPREDNISolone 40 mg Vial IVP SCH ×2 (13:39→21:25)
--- NOTE | 2017-10-16 14:33 | CP.PCM.CON ---
History of Present Illness - History of Present Illness History of Present Illness: Palliative care consult requested by Dr Omer Sher Reason: Goals of care 72 year old female with history of advanced COPD, N STEMI who while became obtunded,bradycardicand hypercapnic yesterday in TRCU. [employer] called > Atropine given, intubated an transferred to ICU. She has since stabilized and extubated. She is alert, oriented, anxious. She does not remember the circumstances which led to her being transferred to ICU. She densies chest/abdominal pain, nausea, vomiting diarrhea, headache or dizziness.. PMHx:end stage COPD on BIPAP at home,CAD s/p stent in LAD, DM,NSTEMI, HCAP. Social History: Smoker, no alcohol or drug use. Lives with spouse. Family History: Non contributory. Advance Care Planing: The patient does not have and Advanced Directive. Review of Systems: As per HPI, 12 pint review otherwise normal. Past Patient History - Infectious Disease Hx of Infectious Diseases: None - Tetanus Immunizations Tetanus Immunization: Unknown - Past Medical History & Family History Past Medical History?: Yes - Past Social History Smoking Status: Former Smoker - CARDIAC Hx Pacemaker: No - PULMONARY Hx Respiratory Disorders: Yes Hx Chronic Obstructive Pulmonary Disease (COPD): Yes - NEUROLOGICAL Hx Neurological Disorder: No - HEENT Hx HEENT Problems: Yes Hx Cataracts: Yes - RENAL Hx Renal Failure: Yes - ENDOCRINE/METABOLIC Hx Diabetes Mellitus Type 2: Yes - HEMATOLOGICAL/ONCOLOGICAL Hx Cancer: No - INTEGUMENTARY Hx Dermatological Problems: Yes - MUSCULOSKELETAL/RHEUMATOLOGICAL Hx Arthritis: Yes - GASTROINTESTINAL Hx Gastrointestinal Disorders: No (VENTRAL HERNIA) - GENITOURINARY/GYNECOLOGICAL Hx Genitourinary Disorders: No Hx Reproductive Disorders: No - PSYCHIATRIC Hx Psychophysiologic Disorder: Yes Hx Anxiety: Yes Hx Substance Use: No - SURGICAL HISTORY Hx Mastectomy: No - ANESTHESIA Hx Anesthesia Reactions: No Hx Malignant Hyperthermia: No Meds Allergies/Adverse Reactions: Allergies Allergy/AdvReac Type Severity Reaction Status Date / Time FISH Allergy Severe THROAT Verified 10/08/17 19:03 SWELLING iodine Allergy RASH Verified 10/08/17 19:03 oxaprozin [From Daypro] Allergy RASH Verified 10/08/17 19:03 Penicillins Allergy ANAPHYLAXIS Verified 10/08/17 19:03 zolpidem [From Ambien] AdvReac Intermediate FATIGUE Verified 10/08/17 19:03 - Medications Medications: Current Medications Albuterol/Ipratropium (Duoneb 3 Mg/0.5 Mg (3 Ml) Ud) 3 ml IH [id number] [facility] Last Admin: 10/16/17 10:30 Dose: 3 ml Aspirin (Ecotrin) 81 mg PO DAILY BRIANNA Clopidogrel Bisulfate (Plavix) 75 mg PO DAILY [facility] Heparin Sodium (Porcine) (Heparin) 5,000 units SC Q8 BRIANNA PRN Reason: Protocol Last Admin: 10/16/17 13:39 Dose: 5,000 units Propofol (Diprivan) 1,000 mg in 100 mls @ 2.135 mls/hr IV .Q24H PRN; Protocol; 5 MCG/KG/MIN PRN Reason: TITRATE PER MD ORDER Last Titration: 10/16/17 10:04 Dose: 0 mcg/kg/min, 0 mls/hr Acetaminophen (Ofirmev) 1,000 mg in 100 mls @ 400 mls/hr IVPB Q6H PRN PRN Reason: Temperature Stop: 10/18/17 04:41 Last Admin: 10/16/17 06:11 Dose: 400 mls/hr NOREPINEPHRINE BIT/0.9 % NACL (Levophed 4 Mg/ 250 Ml Ns Premixed) 4 mg in 250 mls @ 15 mls/hr IV .[id number] PRN; Protocol; 4 MCG/MIN PRN Reason: TITRATE PER MD ORDER Vancomycin HCl (Vancomycin 1gm) 1 gm in 250 mls @ 167 mls/hr IVPB DAILY [facility] PRN Reason: Protocol Last Admin: 10/16/17 10:28 Dose: 167 mls/hr Meropenem (Merrem Iv 1 Gm Premix) 50 mls @ 100 mls/hr IVPB Q8 BRIANNA PRN Reason: Protocol Stop: 10/24/17 11:34 Last Admin: 10/16/17 11:33 Dose: Not Given Insulin Human Regular (Humulin R Low) 0 units SC ACHS [facility] PRN Reason: Protocol Last Admin: 10/16/17 11:30 Dose: Not Given Methylprednisolone (Solu-Medrol) 40 mg IVP Q8 [facility] Last Admin: 10/16/17 13:39 Dose: 40 mg Pantoprazole Sodium (Protonix Inj) 40 mg IVP DAILY [facility] Last Admin: 07/17/18 10:22 Dose: 40 mg Physical Exam - Constitutional Appears: Chronically Ill - Head Exam Head Exam: NORMAL INSPECTION - Eye Exam Eye Exam: Normal appearance, PERRL - ENT Exam ENT Exam: Mucous Membranes Moist, Normal Oropharynx - Neck Exam Neck exam: Positive for: Normal Inspection - Respiratory Exam Respiratory Exam: Decreased Breath Sounds, Wheezes - Cardiovascular Exam Cardiovascular Exam: REGULAR RHYTHM, +S1 - GI/Abdominal Exam GI & Abdominal Exam: Normal Bowel Sounds, Soft - Extremities Exam Extremities exam: Positive for: normal capillary refill, pedal edema - Back Exam Back exam: NORMAL INSPECTION - Neurological Exam Neurological exam: Alert Additional comments: oriented to place and self - Psychiatric Exam Psychiatric exam: Anxious - Skin Skin Exam: Dry, Pallor - Additional Findings Additional findings: Palliative performance scale rating 40 % Results - Vital Signs Recent Vital Signs: Last Vital Signs Temp 100.4 F H 10/16/17 11:00 Pulse 99 H 10/16/17 11:00 Resp 36 H 10/16/17 11:00 BP 102/44 L 10/16/17 11:00 Pulse Ox 100 10/16/17 11:00 - Labs Result Diagrams: 10/18/17 06:45 10/18/17 06:45 Labs: Laboratory Results - last 24 hr 10/15/17 10/15/17 10/16/17 23:35 23:35 00:01 WBC RBC Hgb Hct MCV MCH MCHC RDW Plt Count MPV Gran % Lymph % (Auto) [place] % (Auto) Eos % (Auto) Baso % (Auto) Gran # Lymph # (Auto) [place] # (Auto) Eos # (Auto) Baso # (Auto) pCO2 50 H pO2 192.0 H HCO3 35.6 H ABG pH 7.46 H ABG Total CO2 37.1 H ABG O2 Saturation 98.5 H ABG O2 Content 13.9 L ABG Base Excess 10.4 H ABG Hemoglobin 9.9 L ABG Carboxyhemoglobin 1.0 POC ABG HHb (Measured) 1.5 ABG Methemoglobin 0.5 ABG O2 Capacity 14.1 L ABG Potassium Hgb O2 Saturation 96.9 Glucose Lactate Mechanical Rate FiO2 60.0 Tidal Volume PEEP Sodium 127 L Potassium 5.5 H Chloride 81 L Carbon Dioxide 37 H Anion Gap 14 BUN 40 H Creatinine 1.2 Est GFR ( Amer) 53 Est GFR (Non-Af Amer) 44 Random Glucose 185 H Calcium 8.4 Phosphorus 4.7 H Magnesium 1.9 Total Bilirubin 0.3 AST 52 H D ALT 53 Alkaline Phosphatase 80 Troponin I 0.14 H* D NT-Pro-B Natriuret Pep Total Protein 5.8 Albumin 3.0 Globulin 2.8 Albumin/Globulin Ratio 1.0 L Procalcitonin Arterial Blood Potassium 10/16/17 10/16/17 10/16/17 01:30 05:00 05:30 WBC 17.5 H RBC 3.86 Hgb 10.2 L Hct 34.3 L MCV 88.9 MCH 26.4 MCHC 29.7 L RDW 16.5 H Plt Count 245 MPV 10.3 Gran % 76.8 H Lymph % (Auto) 9.3 L [place] % (Auto) 13.7 H Eos % (Auto) 0.1 L Baso % (Auto) 0.1 Gran # 13.42 H Lymph # (Auto) 1.6 [place] # (Auto) 2.4 H Eos # (Auto) 0.0 Baso # (Auto) 0.02 pCO2 46 H pO2 122.0 H HCO3 41.2 H* ABG pH 7.56 H ABG Total CO2 42.6 H ABG O2 Saturation 98.1 H ABG O2 Content ABG Base Excess 16.8 H ABG Hemoglobin ABG Carboxyhemoglobin POC ABG HHb (Measured) ABG Methemoglobin ABG O2 Capacity ABG Potassium 4.0 Hgb O2 Saturation Glucose 181 H Lactate 1.2 Mechanical Rate 16 FiO2 40.0 Tidal Volume 350 PEEP 5 Sodium 130.0 L Potassium Chloride 90.0 L Carbon Dioxide Anion Gap BUN Creatinine Est GFR ( Amer) Est GFR (Non-Af Amer) Random Glucose Calcium Phosphorus Magnesium Total Bilirubin AST ALT Alkaline Phosphatase Troponin I NT-Pro-B Natriuret Pep 1380 H Total Protein Albumin Globulin Albumin/Globulin Ratio Procalcitonin Arterial Blood Potassium 4.0 10/16/17 10/16/17 10/16/17 06:25 06:25 06:25 WBC 26.3 H* D RBC 4.31 Hgb 11.4 L Hct 36.9 MCV 85.6 D MCH 26.5 MCHC 30.9 L RDW 16.6 H Plt Count 276 MPV 9.8 Gran % 81.2 H Lymph % (Auto) 5.7 L [place] % (Auto) 12.9 H Eos % (Auto) 0.1 L Baso % (Auto) 0.1 Gran # 21.41 H Lymph # (Auto) 1.5 [place] # (Auto) 3.4 H Eos # (Auto) 0.0 Baso # (Auto) 0.02 pCO2 pO2 HCO3 ABG pH ABG Total CO2 ABG O2 Saturation ABG O2 Content ABG Base Excess ABG Hemoglobin ABG Carboxyhemoglobin POC ABG HHb (Measured) ABG Methemoglobin ABG O2 Capacity ABG Potassium Hgb O2 Saturation Glucose Lactate Mechanical Rate FiO2 Tidal Volume PEEP Sodium 132 Potassium 4.8 Chloride 81 L Carbon Dioxide > 40 H Anion Gap 16 BUN 44 H Creatinine 1.2 Est GFR ( Amer) 53 Est GFR (Non-Af Amer) 44 Random Glucose 165 H Calcium 8.5 Phosphorus Magnesium Total Bilirubin 0.5 AST 210 H D ALT 160 H Alkaline Phosphatase 95 Troponin I 0.18 H* D NT-Pro-B Natriuret Pep Total Protein 5.9 Albumin 2.9 L Globulin 2.9 Albumin/Globulin Ratio 1.0 L Procalcitonin 0.43 Arterial Blood Potassium Assessment & Plan - Assessment and Plan (Free Text) Assessment: 72 year olf female with history of COPD who o becem short of breath, altered and bradycardic while in TRCU. [employer] called , Patient was intubated and given atropine. The patient does not have an Advanced Directive. Family told ICU team that patient was a DNR/DNI. signed DNR request. The patient has stabilized an is now extubated I met with patient this morning. Family at bedside. Extensive discussion regarding goals of care. Ramifications of CPR/intubation in patients with underlying comorbidities such as hers were explained in detail. Questions answered. The patient states she wants to rescind DNR/ DNI. The patient states that she is willing to try CPR and intubation. Patient states that if her condition does not improve she does not want her life prolonged if she is dependent on vent. She does not want tracheostomy/PEG or dialysis. POLST directive completed by patient, she is now full code status. Time spent with patient and family in goals of care and advance care planning 55 minutes Plan: Goals of care and advance care planning Bradycardia: resolved, followed by cardiology, continue ASA/palvix Altered mental status: resolved Respiratory insufficiency: s/p intubation, nebulizer, solumedrol decreased, maintain SA02 > 88%
--- NOTE | 2017-10-16 16:02 | CON ---
DATE: 10/16/2017 CARDIOLOGY CONSULTATION REASON FOR THE CONSULTATION: Cardiac evaluation and followup, history of coronary artery disease, status post stent, admitted with respiratory failure and possible CO2 narcosis, exacerbation of COPD. BRIEF CLINICAL HISTORY: This is a 72-year-old female with past medical history significant for coronary artery disease, status post multiple stent, who was initially admitted on 10/03/2017 with acute exacerbation of COPD and positive troponin risings. She denied chest pain, but because of the rising troponin, the patient underwent cardiac catheterization that revealed nonobstructive coronary artery disease. Subsequently, the patient was transferred to Transitional Care Unit. Yesterday, the patient was complaining of somnolence and kept on sleeping while the was in the room, so ABG was ordered this morning, but before that the patient last night became respiratory distressed, moved to ICU and then transferred to ICU. At that time, initial ABG showed pCO2 of 94 consistent with CO2 narcosis. Currently, the patient is intubated on sedation propofol, IV fluid and dopamine for blood pressure. Initial blood pressure was 60/40, I discussed with the nursing staff taking care, discussed with the patient's family and apparently, the patient denies any chest pain. PAST HISTORY: Significant for COPD, home oxygen, advanced COPD, multiple PTCAs in the past, possibly 8 to 10 stents in the coronary tree, history of cardiac catheterization on last admission 10/03/2017 with the patient admitted with acute exacerbation of COPD and non-STEMI. First troponin was 0.6, repeat troponin was 11.6, so the patient underwent cardiac catheterization that revealed nonobstructive coronary artery disease, cath is dated 10/04/2017 revealed nonobstructive coronary artery disease. Medical treatment recommended, ejection fraction was 35%. Later on, the patient had a MUGA scan done that showed ejection fraction of 60%. PREVIOUS CARDIAC WORKUP: As follows: The patient had a cardiac catheterization dated 10/04/2017 that revealed nonobstructive coronary artery disease, small vessel CAD, mildly decreased LV function, ejection fraction of 45%, EDP was in the range of 20, patent stent in LAD, patent stent in circumflex, patent stent in RCA. Most likely, the positive troponin at that time was thought secondary to hemodynamic instability and small vessel disease. Medical treatment recommended. The patient had also echocardiography done on 10/04/2017 that showed decreased LV function, ejection fraction of 35%, moderate hypokinesis in the apex and anterior wall, right ventricle dilated, systolic function of RV is reduced, aortic sclerosis, mild aortic stenosis, trace mitral regurgitation, [id number] tricuspid regurgitation, RV systolic pressure is reduced at 42. The patient underwent MUGA scan also dated 10/05/2017 to assess LV function that shows a preserved LV function, ejection fraction of 60%, normal RV, normal wall motion. REVIEW OF SYSTEMS: As per HPI. CURRENT MEDICATIONS: The patient is on IV fluid, dopamine and propofol. PHYSICAL EXAMINATION: VITAL SIGNS: Temperature afebrile, heart rate 102, blood pressure 73/41. HEENT: PERRLA, intact. NECK: Supple. No carotid bruit or thyromegaly. CHEST: Clear to auscultation. HEART: S1, S2 regular. ABDOMEN: Soft. EXTREMITIES: Clubbing and cyanosis negative. LABORATORY DATA: Blood workup as follows: WBC 26.3, hemoglobin 11.2, hematocrit 36.9, platelet count 276. Chemistry shows sodium 130, potassium 4.8, chloride 81, carbon dioxide 40, anion gap of 16, BUN 44, creatinine 1.2, troponin 0.18. Admitting ABG shows pCO2 92. IMPRESSION: A 72-year-old female with past medical history significant for advanced chronic obstructive pulmonary disease; coronary artery disease, status post multiple stents, recent cardiac catheterization been admitted with non ST elevation myocardial infarction and acute exacerbation of chronic obstructive pulmonary disease on 10/04/2017 that showed patent stents, small vessel disease. Medical treatment recommended. MUGA shows ejection fraction 60% preserved who was in Transitional Care Unit went in respiratory distress most likely secondary to CO2 narcosis as pCO2 was 94 yesterday and pO2 was 80, status post respiratory failure, now intubated on vent and propofol as well as dopamine. RECOMMENDATIONS: We will discontinue dopamine. If needed, we will put Levophed to prevent chronic atrial fibrillation because the patient is tachycardic. Most likely, this little troponin bump is secondary to hemodynamic instability and small vessel disease. Family wishes to remove the vent and want DNR because of the wish. We told him that we will see if in the 24-hours, most likely the patient will be extubated; if not, then we will discuss with them if prolonged intubation is required and as mentioned, we will discontinue dopamine and switch to Levophed to prevent going into tachycardia. I discussed with the patient's family in length, discussed with the nursing staff at night as well as day nurse. We will follow with you. Thank you, Dr. Sher, for providing us the opportunity in taking care of the patient, Mandy Miranda. Trae Henry MD
[2017-10-16] MEDS: Metoprolol Succinate 50 mg XL Tab PO SCH (16:51)
--- NOTE | 2017-10-16 17:40 | CON ---
DATE: 10/16/2017 The patient is seen earlier this morning. She was seen in the 129 CCU, bed 7. She is intubated on the ventilator. She was at the Transitional Care Unit and had developed shortness of breath, rapid response and was transferred to the ICU, intubated on a ventilator. HISTORY OF PRESENT ILLNESS: A 72-year-old female, known to me from multiple admissions with end-stage chronic obstructive lung disease, pulmonary fibrosis, who was recently hospitalized with Pseudomonas healthcare-associated pneumonia, was given antibiotics and also with diabetes mellitus, pulmonary nodules, hypertension and now had respiratory failure, intubated on the ventilator. REVIEW OF SYSTEMS: A 12-point review of systems is performed. The patient had fevers, respiratory failure, intubated on the ventilator. There has been no abdominal pain, diarrhea or constipation. No bright red blood per rectum. No melena. PAST MEDICAL HISTORY: Significant for end-stage lung disease, pulmonary fibrosis, Pseudomonas healthcare-associated pneumonia, diabetes mellitus, pulmonary nodules and coronary artery disease and high cholesterol, renal insufficiency, arthritis, cataract. PAST SURGICAL HISTORY: Significant for cardiac catheterization with angioplasty. ALLERGIES: THE PATIENT IS ALLERGIC TO PENICILLIN; HOWEVER, SHE TAKES MEROPENEM WITH NO PROBLEM AND ZOLPIDEM, FISH, IODINE. MEDICATIONS AT HOME: Reviewed at the Transitional Care. Medications are reviewed from home also and it include prednisone at home and lisinopril, isosorbide, insulin, gabapentin. PHYSICAL EXAMINATION: GENERAL: The patient is in bed. VITAL SIGNS: Temperature of 100.4, blood pressure is 102/40, respiratory rate on the vent, heart rate of 106. The patient's saturation is noted. HEENT: Reveals ET tube in place. NECK: Supple. LUNGS: Have decreased breath sounds. HEART: Normal S1 and S2. ABDOMEN: Soft, nontender. No rebound or guarding. LABORATORY DATA: Reveals the patient's white count of 17,500 up to 26,000, hemoglobin 11. Chemistries reveal BUN of 40, creatinine of 1.2, GFR is 44, random glucose is elevated. The patient has elevated troponin x2. The BNP is over 1300. Microbiology is reviewed from previous admission. The patient had a chest x-ray, which reveals the ET tube to be in place. There is no change in nodular airspace disease on the right. No pneumonitis. ASSESSMENT AND PLAN: This is a 72-year-old with septic shock, respiratory failure, intubated on the ventilator, healthcare-associated pneumonia. We will treat the patient with vancomycin and meropenem, adjust with renal dosing. THE PATIENT IS ALLERGIC TO PENICILLIN. Pending pancultures, blood, urine, sputum, procalcitonin. Overall prognosis is quite poor for this patient. Thaddeus Ely MD
--- NOTE | 2017-10-17 01:11 | HP ---
HISTORY OF PRESENT ILLNESS: Patient is 72 years old, who was in TCU, started to become somnolent, confused and sleepy; by around 10, she was having shortness of breath and later on she was found unresponsive, bradycardic and gasping for air, so rapid response was called and patient was transferred to ICU. Earlier there was no history of fever or chills. She did have cough with congestion, but no hemoptysis. Patient did not have any chest pain. She was recently admitted on 10/04/2017 with cough and congestion. She was found to have non-ST elevation ND, and she had cardiac cath, was found to have occlusive coronary artery disease, but not critical to warrant need for angioplasty; however, her previous stents were patent. PAST MEDICAL HISTORY: Significant for: 1. Terminal COPD. 2. Hypertension. 3. Pulmonary hypertension. 4. Coronary artery disease, status post multiple angioplasty. 5. Restless leg syndrome. 6. Insulin-dependent diabetes. 7. Ventral hernia, not incarcerated. ALLERGIES: SHE IS ALLERGIC TO FISH, IODINE, OXAPROZIN, PENICILLIN, ZOLPIDEM. MEDICATIONS AT HOME: As per MAY. PHYSICAL EXAMINATION: GENERAL: Patient was extubated this morning, doing well, awake, alert, oriented, and communicative. VITAL SIGNS: Temperature 99.5, pulse 94, respirations 18, blood pressure 125/60. LUNGS: Bilateral diffusely decreased breath sounds. HEART: S1 and S2 audible. ABDOMEN: Soft, nontender. No rebound, no guarding. NEUROLOGIC: The patient is awake, alert, oriented, communicative, moves all extremities. LABORATORY DATA: WBC 26.3, hemoglobin 11.4, hematocrit 36.9, platelet 276. Chemistry: Sodium 132, potassium 4.8, chloride 81, CO2 of 40, BUN 44, creatinine 1.2, blood sugar of 165. Troponin 0.18. Random blood sugar is 165. BNP is 1380. ASSESSMENT: 1. Respiratory failure, status post intubation followed by successful extubation this morning. 2. Pulmonary hypertension. 3. Coronary artery disease, status post multiple angioplasty. 4. Recent non-ST elevation myocardial infarction. 5. Insulin-dependent diabetes. 6. Hypertension. PLAN: Currently patient is on meropenem. She is on Protonix. She is on vancomycin. She is on nebulizer treatment. Monitor her blood sugar. We will follow up patient in a.m. Ten Sher MD [facility] # [id number]
[2017-10-17] MEDS: Albuterol-Ipratrop 3 mg / 0.5 (3 ml) UD IH SCH ×5 (03:04→22:31)
[2017-10-17] MEDS: Meropenem IV 1 gm in NS 50 ML IVPB SCH ×3 (05:45→21:42)
[2017-10-17] MEDS: MethylPREDNISolone 40 mg Vial IVP SCH (05:51)
[2017-10-17 06:51] LABS: HEMOGLOBIN 10.9 g/dL (12.0-16.0); MEAN CELL VOLUME 86.4 fl (80.0-105.0); MEAN CORPUSCULAR HGB CONC 30.1 g/dl (31.0-37.0); MEAN PLATELET VOLUME 9.8 fl (7.0-11.0); RBC 4.19 10^6/uL (3.5-6.1); RED CELL DISTRIBUTION WIDTH 17.1 % (11.5-14.5)
[2017-10-17 07:19] LABS: WHITE BLOOD COUNT 12.7 10^3/ul (4.5-11.0)
[2017-10-17 07:27] LABS: ARTERIAL BLOOD GAS HCO3 27.3 mmol/L (21-28); ARTERIAL BLOOD GAS HEMOGLOBIN 8.3 g/dL (11.7-17.4); ARTERIAL BLOOD GAS O2 CAPACITY 11.9 mL/dl (16-24); ARTERIAL BLOOD GAS O2 CONTENT 11.7 ML/dl (15-23); ARTERIAL BLOOD GAS O2 SAT 98.4 % (95-98); ARTERIAL BLOOD GAS PCO2 44 mm/Hg (35-45); ARTERIAL BLOOD GAS TCO2 28.7 mmol.L (22-28)
[2017-10-17] MEDS: Insulin Reg-LOW-Coverage SC SCH ×4 (07:50→21:40)
[2017-10-17 09:31] LABS: CK-MB 4.8 ng/mL (0.0-3.6)
[2017-10-17] MEDS: Vancomycin 1gm in NS 250ml 1 GM/250 ML BAG IVPB SCH (09:31)
[2017-10-17] MEDS: Metoprolol Succinate 50 mg XL Tab PO SCH (09:31)
[2017-10-17] MEDS ORDERED: MethylPREDNISolone 40 mg Vial IVP SCH (10:00)
[2017-10-17 10:16] LABS: ALBUMIN 3.1 g/dL (3.0-4.8); ALT/SGPT 172 U/L (7-56); AST/SGOT 141 U/L (14-36); BLOOD UREA NITROGEN 52 mg/dL (7-21); CALCIUM 7.8 mg/dL (8.4-10.5); GFR AFRICAN-AMERICAN > 60; GFR NON-AFRICAN AMERICAN 54
--- NOTE | 2017-10-17 11:47 | CP.CCUPN ---
<Law Graff - Last Filed: 10/17/17 14:40> CCU Subjective - Physician Review Subjective (Free Text): Law Graff, PGY1 Critical Care Progress Note for Dr. Stratton Patient was examined at bedside this morning. Patient was afebrile. Resting comfortable in bed with nasal cannula. Patient was on BiPAP overnight. She denied chest pain, shortness of breath, abdominal pain, nausea, vomiting, diarrhea, and pain in upper/lower extremities. Patient still has congestion and cough. She said "my breathing is better." Patient urine output improved, with 700 cc urine in 24 hours. No overnight changes. A Full 12 point ROS was conducted and unremarkable except as stated above. CCU Objective - Vital Signs / Intake & Output Vital Signs (Last 4 hours): Vital Signs Temp Pulse Resp BP Pulse Ox 10/17/17 09:31 107 H 131/60 18 09:29 131/60 18 09:28 108 H 131/60 18 08:52 98.8 F 111 H 87 L 18 08:51 98.8 F 110 H 87 L 18/18 08:50 98.8 F 114 H 18 86 L 18 08:49 98.8 F 114 H 86 L 18 08:40 98.6 F 110 H 20 85 L 18 08:36 98.6 F 111 H 86 L 1818 08:30 134/57 L 18/18 08:29 98.4 F 108 H 18 08:28 98.4 F 116 H 18 08:27 98.4 F 116 H 100 1818 08:25 98.4 F 111 H 22 18 08:22 98.4 F 112 H 64 L 1818 08:20 98.4 F 114 H 15 67 L 18 08:19 98.4 F 106 H 27 H 1818 08:10 98.4 F 116 H 93 L 1818 08:03 98.2 F 106 H 22 1818 08:02 98.2 F 106 H 24 18 08:00 98.2 F 109 H 20 148/71 100 18 07:54 98.2 F 108 H 100 10/17/17 07:50 98.1 F 105 H 29 H 100 Intake and Output (Last 8hrs): Intake & Output 10/16/17 10/17/17 10/17/17 22:59 06:59 14:59 Intake Total 1630 695 Output Total 600 110 Balance 1030 585 Intake: IV 1150 215 Right Upper arm 1150 215 Oral 480 480 Output: Urine 600 110 Urethral (Ramos) 600 110 Other: # Bowel Movements 0 0 - Physical Exam Head: Positive for: Atraumatic, Normocephalic Pupils: Positive for: PERRL Extroacular Muscles: Positive for: EOMI Mouth: Positive for: Moist Mucous Membranes Nose (External): Positive for: Atraumatic, Other (Nasal Cannula ) Respiratory/Chest: Positive for: Other (Crackles bilaterally at lung bases ( improving)). Negative for: Respiratory Distress, Accessory Muscle Use, Wheezes , Rales, Rhonchi Cardiovascular: Positive for: Regular Rate and Rhythm, Normal S1, S2, Peripheal Pulses Present. Negative for: Murmurs Abdomen: Positive for: Normal Bowel Sounds. Negative for: Tenderness, Distention, Peritoneal Signs, Rebound, Guarding Upper Extremity: Positive for: Normal Inspection, NORMAL PULSES. Negative for: Cyanosis, Edema Lower Extremity: Positive for: Normal Inspection, NORMAL PULSES. Negative for: Edema, CALF TENDERNESS, Cyanosis Skin: Positive for: Warm, Dry, Normal Color. Negative for: Rashes Psychiatric: Positive for: Alert, Oriented x 3 - Medications Active Medications: Active Medications Generic Name Dose Route Start Last Admin Trade Name Freq PRN Reason Stop Dose Admin Albuterol/Ipratropium 3 ml 10/17/17 14:00 Duoneb 3 Mg/0.5 Mg (3 Ml) Ud IH [id number] BRIANNA Allopurinol 300 mg 10/17/17 10:00 10/17/17 09:31 Zyloprim PO 300 mg DAILY BRIANNA Administration Aspirin 81 mg 10/17/17 10:00 10/17/17 09:30 Ecotrin PO 81 mg DAILY BRIANNA Administration Atorvastatin Calcium 20 mg 10/17/17 10:00 10/17/17 09:30 Lipitor PO 20 mg DAILY BRIANNA Administration Clopidogrel Bisulfate 75 mg 10/17/17 10:00 10/17/17 11:38 Plavix PO 75 mg DAILY BRIANNA Administration Furosemide 40 mg 10/17/17 10:00 10/17/17 09:29 Lasix PO 40 mg DAILY BRIANNA Administration Gabapentin 200 mg 10/16/17 18:00 10/17/17 09:30 Neurontin PO 200 mg TID BRIANNA Administration Protocol Heparin Sodium (Porcine) 5,000 units 10/16/17 14:00 10/17/17 05:50 Heparin SC 5,000 units Q8 BRIANNA Administration Protocol Acetaminophen 1,000 mg in 100 mls @ 400 mls/hr 10/16/17 04:40 10/16/17 06:11 Ofirmev IVPB 10/18/17 04:41 400 mls/hr Q6H PRN Administration Temperature NOREPINEPHRINE BIT/0.9 % NACL 4 mg in 250 mls @ 15 mls/hr 10/16/17 09:38 Levophed 4 Mg/ 250 Ml Ns Premixed IV .[id number] PRN TITRATE PER MD ORDER Protocol 4 MCG/MIN Vancomycin HCl 1 gm in 250 mls @ 167 mls/hr 10/16/17 10:00 10/17/17 09:31 Vancomycin 1gm IVPB 167 mls/hr DAILY BRIANNA Administration Protocol Meropenem 50 mls @ 100 mls/hr 10/17/17 10:00 10/17/17 11:39 Merrem Iv 1 Gm Premix IVPB 10/25/17 10:01 100 mls/hr Q12 BRIANNA Administration Protocol Insulin Human Regular 0 units 10/16/17 07:30 10/17/17 11:35 Humulin R Low SC 5 u ACHS BRIANNA Administration Protocol Isosorbide Mononitrate 60 mg 10/16/17 16:15 10/17/17 09:30 Imdur PO 60 mg DAILY BRIANNA Administration Lisinopril 30 mg 10/17/17 10:00 10/17/17 09:28 Zestril PO 30 mg DAILY BRIANNA Administration Metoprolol Succinate 50 mg 10/16/17 16:15 10/17/17 09:31 Toprol Xl PO 50 mg DAILY BRIANNA Administration Pantoprazole Sodium 40 mg 10/18/17 07:30 Protonix Ec Tab PO ACB BRIANNA Prednisone 20 mg 10/16/17 16:15 10/17/17 09:30 Prednisone Tab PO 20 mg DAILY BRIANNA Administration Ropinirole HCl 3 mg 10/16/17 22:00 10/16/17 21:31 Requip PO 3 mg HS BRIANNA Administration - Patient Studies Lab Studies: Microbiology Studies 10/16/17 02:30 Urine Culture - Preliminary Urine,Catheterized Gram Positive Cocci 10/16/17 02:00 Sputum Culture - Preliminary Trachasp Gram Negative Ernesto 10/16/17 01:30 Blood Culture - Preliminary Blood NO GROWTH AFTER 24 HOURS Lab Studies 10/17/17 10/17/17 10/17/17 Range/Units 06:40 06:40 05:00 WBC 12.7 H D (4.5-11.0) 10^3/ul RBC 4.19 (3.5-6.1) 10^6/uL Hgb 10.9 L (12.0-16.0) g/dL Hct 36.2 (36.0-48.0) % MCV 86.4 (80.0-105.0) fl MCH 26.0 (25.0-35.0) pg MCHC 30.1 L (31.0-37.0) g/dl RDW 17.1 H (11.5-14.5) % Plt Count 262 (120.0-450.0) 10^3/uL MPV 9.8 (7.0-11.0) fl pCO2 44 (35-45) mm/Hg pO2 132.0 H (80-100) mm/Hg HCO3 27.3 (21-28) mmol/L ABG pH 7.40 (7.35-7.45) ABG Total CO2 28.7 H (22-28) mmol.L ABG O2 Saturation 98.4 H (95-98) % ABG O2 Content 11.7 L (15-23) ML/dl ABG Base Excess 2.2 (-2.0-3.0) mmol/L ABG Hemoglobin 8.3 L (11.7-17.4) g/dL ABG Carboxyhemoglobin 0.9 (0.5-1.5) % POC ABG HHb (Measured) 1.6 (0-5) % ABG Methemoglobin 0.0 (0.0-3.0) % ABG O2 Capacity 11.9 L (16-24) mL/dl Hgb O2 Saturation 97.5 (95.0-98.0) % FiO2 32.0 % Sodium 128 L (132-148) mmol/L Potassium 5.1 H (3.6-5.0) mmol/L Chloride 83 L (98-107) mmol/L Carbon Dioxide 36 H (21-33) mmol/L Anion Gap 14 (10-20) BUN 52 H (7-21) mg/dL Creatinine 1.0 (0.7-1.2) mg/dl Est GFR ( Amer) > 60 Est GFR (Non-Af Amer) 54 POC Glucose (mg/dL) (65-110) mg/dL Random Glucose 381 H* D (70-110) mg/dL Calcium 7.8 L (8.4-10.5) mg/dL Phosphorus 5.1 H (2.5-4.5) mg/dL Magnesium 1.6 L (1.7-2.2) mg/dL Total Bilirubin 0.3 (0.2-1.3) mg/dL AST 141 H D (14-36) U/L ALT 172 H (7-56) U/L Alkaline Phosphatase 92 (38-126) U/L Lactate Dehydrogenase 636 (333-699) U/L Total Creatine Kinase 233 H (35-230) U/L CK-MB (CK-2) 4.8 H (0.0-3.6) ng/mL CK-MB (CK-2) % Cancelled Troponin I 0.10 D ng/mL Total Protein 6.2 (5.8-8.3) g/dL Albumin 3.1 (3.0-4.8) g/dL Globulin 3.1 gm/dL Albumin/Globulin Ratio 1.0 L (1.1-1.8) Procalcitonin (0.19-0.49) NG/ML 10/16/17 10/16/17 Range/Units 11:47 06:25 WBC (4.5-11.0) 10^3/ul RBC (3.5-6.1) 10^6/uL Hgb (12.0-16.0) g/dL Hct (36.0-48.0) % MCV (80.0-105.0) fl MCH (25.0-35.0) pg MCHC (31.0-37.0) g/dl RDW (11.5-14.5) % Plt Count (120.0-450.0) 10^3/uL MPV (7.0-11.0) fl pCO2 (35-45) mm/Hg pO2 (80-100) mm/Hg HCO3 (21-28) mmol/L ABG pH (7.35-7.45) ABG Total CO2 (22-28) mmol.L ABG O2 Saturation (95-98) % ABG O2 Content (15-23) ML/dl ABG Base Excess (-2.0-3.0) mmol/L ABG Hemoglobin (11.7-17.4) g/dL ABG Carboxyhemoglobin (0.5-1.5) % POC ABG HHb (Measured) (0-5) % ABG Methemoglobin (0.0-3.0) % ABG O2 Capacity (16-24) mL/dl Hgb O2 Saturation (95.0-98.0) % FiO2 % Sodium (132-148) mmol/L Potassium (3.6-5.0) mmol/L Chloride (98-107) mmol/L Carbon Dioxide (21-33) mmol/L Anion Gap (10-20) BUN (7-21) mg/dL Creatinine (0.7-1.2) mg/dl Est GFR ( Amer) Est GFR (Non-Af Amer) POC Glucose (mg/dL) 62 L (65-110) mg/dL Random Glucose (70-110) mg/dL Calcium (8.4-10.5) mg/dL Phosphorus (2.5-4.5) mg/dL Magnesium (1.7-2.2) mg/dL Total Bilirubin (0.2-1.3) mg/dL AST (14-36) U/L ALT (7-56) U/L Alkaline Phosphatase (38-126) U/L Lactate Dehydrogenase (333-699) U/L Total Creatine Kinase (35-230) U/L CK-MB (CK-2) (0.0-3.6) ng/mL CK-MB (CK-2) % Troponin I ng/mL Total Protein (5.8-8.3) g/dL Albumin (3.0-4.8) g/dL Globulin gm/dL Albumin/Globulin Ratio (1.1-1.8) Procalcitonin 0.43 (0.19-0.49) NG/ML Laboratory Results - last 24 hr 10/16/17 10/16/17 10/17/17 06:25 11:47 05:00 WBC RBC Hgb Hct MCV MCH MCHC RDW Plt Count MPV pCO2 44 pO2 132.0 H HCO3 27.3 ABG pH 7.40 ABG Total CO2 28.7 H ABG O2 Saturation 98.4 H ABG O2 Content 11.7 L ABG Base Excess 2.2 ABG Hemoglobin 8.3 L ABG Carboxyhemoglobin 0.9 POC ABG HHb (Measured) 1.6 ABG Methemoglobin 0.0 ABG O2 Capacity 11.9 L Hgb O2 Saturation 97.5 FiO2 32.0 Sodium Potassium Chloride Carbon Dioxide Anion Gap BUN Creatinine Est GFR ( Amer) Est GFR (Non-Af Amer) POC Glucose (mg/dL) 62 L Random Glucose Calcium Phosphorus Magnesium Total Bilirubin AST ALT Alkaline Phosphatase Lactate Dehydrogenase Total Creatine Kinase CK-MB (CK-2) CK-MB (CK-2) % Troponin I Total Protein Albumin Globulin Albumin/Globulin Ratio Procalcitonin 0.43 10/17/17 10/17/17 06:40 06:40 WBC 12.7 H D RBC 4.19 Hgb 10.9 L Hct 36.2 MCV 86.4 MCH 26.0 MCHC 30.1 L RDW 17.1 H Plt Count 262 MPV 9.8 pCO2 pO2 HCO3 ABG pH ABG Total CO2 ABG O2 Saturation ABG O2 Content ABG Base Excess ABG Hemoglobin ABG Carboxyhemoglobin POC ABG HHb (Measured) ABG Methemoglobin ABG O2 Capacity Hgb O2 Saturation FiO2 Sodium 128 L Potassium 5.1 H Chloride 83 L Carbon Dioxide 36 H Anion Gap 14 BUN 52 H Creatinine 1.0 Est GFR ( Amer) > 60 Est GFR (Non-Af Amer) 54 POC Glucose (mg/dL) Random Glucose 381 H* D Calcium 7.8 L Phosphorus 5.1 H Magnesium 1.6 L Total Bilirubin 0.3 AST 141 H D ALT 172 H Alkaline Phosphatase 92 Lactate Dehydrogenase 636 Total Creatine Kinase 233 H CK-MB (CK-2) 4.8 H CK-MB (CK-2) % Cancelled Troponin I 0.10 D Total Protein 6.2 Albumin 3.1 Globulin 3.1 Albumin/Globulin Ratio 1.0 L Procalcitonin Fingerstick Blood Sugar Results: 391 Review of Systems - Review of Systems All systems: reviewed and no additional remarkable complaints except (as per HPI ) Critical Care Progress Note - Extremities/Vascular Does the Patient have a Central Venous Catheter?: No Does the Patient need a Central Venous Catheter?: No Does the Patient have a Ramos Catheter?: Yes Does the Patient need a Ramos Catheter?: Yes - Prophylaxis GI Prophylaxis GI: PPI - Prophylaxis DVT Prophylaxis DVT: Heparin SQ - Nutrition Nutrition: Nutrition Category Date Time Status Consistent Carbohydrate [DIET] Diets 10/16/17 Lunch Ordered Assessment/Plan - Assessment and Plan (Free Text) Assessment: Patient is a 72 y/o F with PMHx of COPD (on home O2), asthma, bronchitis, DM type II, CAD (s/p x8 stents), HLD who presented to ED on October 04, 2017 for shortness of breath, cough, and blood tinged sputum. Patient was admitted to ICU during prior visit for hypoxic respiratory failure and NSTEMI. Patient was eventually stabilized and sent to tCU on 10/09/17. However, on 10/15, patient was found unresponsive by nursing staff and [facility] RECEPTIONIST was called. Patient was desaturating and intubated. Patient was transferred to ICU for management. Since overnight, patient has been febrile, tachycardic, and tachypnic. Patient has met criteria for sepsis; as a result, patient received septic work up; hydration, antibiotic coverage, and pancultures to determine source of infection. Patient's recent CXR indicated possible severe pulmonary venous congestion, interstitial edema, or pneumonitis. Patient being managed in ICU for management of sepsis and hypercapnic respiratory failure 2/2 COPD exacerbation. Family initially made patient DNR/DNI, however, it was rescinded and patient was declared full code. Patient is currently being followed by cardiology, ID, pulmonology, and palliative care. Successfully extubated in ICU with respiratory status improving; on BiPAP at night and resting comfortably with nasal cannula in no acute respiratory distress. Plan: Neuro: - Maintain normothermia Pulm: - On nasal cannula, saturating well - Hypercapnia and hypoxia is improved on ABG - started patient on triple therapy for COPD: spiriva (LAMA), Budesonide ( corticosteroid), Brovana (LABA) - CXR (10/16): low ET tube. Reposition. No change in nodular airspace disease in R-lung which may represent severe pulmonary venous congestion, interstitial edema, or pneumonitis. - Pulm consulted, f/u recs - maintain SaO2 88-92% (on home oxygen) - c/w duonebs - d/c solumedrol, started on prednisone Cardio: - Patient is normotensive, no need for pressors; c/w home meds - Cardio consulted, f/u recs - Maintain MAP > 65 - c/w ASA/Plavix - Old Echo: EF 35% GI: - GI ppx: PTX Renal: - Improved urine output in ramos - Replete lytes as needed - Latest BUN/Cr is 52/1.0 (close to baseline) Heme: - DVT ppx: heparin SC ID: - WBC improving (12.7), patient afebrile - blood cx negative (pre-ambrocio) - sputum cx gram negative ernesto - urine cx gram positive cocci - MRSA negative - procalcitonin - antibiotic coverage: c/w vanco and meropenem - Tylenol - ID consulted, f/u recs Endo: - Maintain euglycemia - ISS - Accuchecks ACHS Code status: Patient is Full Code. Dispo: Patient is in no acute distress. Patient is hemodynamically stable and safe for transfer to telemetry. Case was reviewed and discussed with Attending Physician Dr. Stratton. <Nelson Stratton - Last Filed: 10/17/17 17:00> CCU Objective - Vital Signs / Intake & Output Intake and Output (Last 8hrs): Intake & Output 10/17/17 10/17/17 10/17/17 06:59 14:59 22:59 Intake Total 695 800 Output Total 110 1100 Balance 585 -300 Intake: IV 215 300 Right Upper arm 215 300 Oral 480 500 Output: Urine 110 1100 Urethral (Ramos) 110 1100 Other: # Bowel Movements 0 - Medications Active Medications: Active Medications Generic Name Dose Route Start Last Admin Trade Name Freq PRN Reason Stop Dose Admin Albuterol/Ipratropium 3 ml 10/17/17 14:00 10/17/17 12:30 Duoneb 3 Mg/0.5 Mg (3 Ml) Ud IH 3 ml [id number] BRIANNA Administration Allopurinol 300 mg 10/17/17 10:00 10/17/17 09:31 Zyloprim PO 300 mg DAILY BRIANNA Administration Arformoterol Tartrate 15 mcg 10/17/17 20:00 Brovana [id number] BRIANNA Aspirin 81 mg 10/17/17 10:00 10/17/17 09:30 Ecotrin PO 81 mg DAILY BRIANNA Administration Atorvastatin Calcium 20 mg 10/17/17 10:00 10/17/17 09:30 Lipitor PO 20 mg DAILY BRIANNA Administration Budesonide 0.5 mg 10/17/17 20:00 Pulmicort Respules [id number] BRIANNA Clopidogrel Bisulfate 75 mg 10/17/17 10:00 10/17/17 11:38 Plavix PO 75 mg DAILY BRIANNA Administration Furosemide 40 mg 10/17/17 10:00 10/17/17 09:29 Lasix PO 40 mg DAILY BRIANNA Administration Gabapentin 200 mg 10/16/17 18:00 10/17/17 14:32 Neurontin PO 200 mg TID BRIANNA Administration Protocol Heparin Sodium (Porcine) 5,000 units 10/16/17 14:00 10/17/17 14:31 Heparin SC 5,000 units Q8 BRIANNA Administration Protocol Acetaminophen 1,000 mg in 100 mls @ 400 mls/hr 10/16/17 04:40 10/16/17 06:11 Ofirmev IVPB 10/18/17 04:41 400 mls/hr Q6H PRN Administration Temperature NOREPINEPHRINE BIT/0.9 % NACL 4 mg in 250 mls @ 15 mls/hr 10/16/17 09:38 Levophed 4 Mg/ 250 Ml Ns Premixed IV .[id number] PRN TITRATE PER MD ORDER Protocol 4 MCG/MIN Vancomycin HCl 1 gm in 250 mls @ 167 mls/hr 10/16/17 10:00 10/17/17 09:31 Vancomycin 1gm IVPB 167 mls/hr DAILY BRIANNA Administration Protocol Meropenem 50 mls @ 100 mls/hr 10/17/17 10:00 10/17/17 11:39 Merrem Iv 1 Gm Premix IVPB 10/25/17 10:01 100 mls/hr Q12 BRIANNA Administration Protocol Insulin Human Regular 0 units 10/16/17 07:30 10/17/17 11:35 Humulin R Low SC 5 u ACHS BRIANNA Administration Protocol Isosorbide Mononitrate 60 mg 10/16/17 16:15 10/17/17 09:30 Imdur PO 60 mg DAILY BRIANNA Administration Lisinopril 30 mg 10/17/17 10:00 10/17/17 09:28 Zestril PO 30 mg DAILY BRIANNA Administration Metoprolol Succinate 50 mg 10/16/17 16:15 10/17/17 09:31 Toprol Xl PO 50 mg DAILY BRIANNA Administration Pantoprazole Sodium 40 mg 10/18/17 07:30 Protonix Ec Tab PO ACB BRIANNA Prednisone 20 mg 10/16/17 16:15 10/17/17 09:30 Prednisone Tab PO 20 mg DAILY BRIANNA Administration Ropinirole HCl 3 mg 10/16/17 22:00 10/16/17 21:31 Requip PO 3 mg HS BRIANNA Administration Tiotropium Stanton 18 mcg 10/17/17 14:30 10/17/17 14:31 Spiriva INH 18 mcg DAILY BRIANNA Administration - Patient Studies Lab Studies: Microbiology Studies 10/16/17 02:00 Gram Stain - Final Trachasp Sputum Culture - Preliminary Gram Negative Ernesto 10/16/17 01:10 MRSA Culture (Admit) - Final Naris MRSA NOT DETECTED 10/16/17 02:30 Urine Culture - Preliminary Urine,Catheterized Gram Positive Cocci 10/16/17 01:30 Blood Culture - Preliminary Blood NO GROWTH AFTER 24 HOURS Lab Studies 10/17/17 10/17/17 10/17/17 Range/Units 06:40 06:40 05:00 WBC 12.7 H D (4.5-11.0) 10^3/ul RBC 4.19 (3.5-6.1) 10^6/uL Hgb 10.9 L (12.0-16.0) g/dL Hct 36.2 (36.0-48.0) % MCV 86.4 (80.0-105.0) fl MCH 26.0 (25.0-35.0) pg MCHC 30.1 L (31.0-37.0) g/dl RDW 17.1 H (11.5-14.5) % Plt Count 262 (120.0-450.0) 10^3/uL MPV 9.8 (7.0-11.0) fl pCO2 44 (35-45) mm/Hg pO2 132.0 H (80-100) mm/Hg HCO3 27.3 (21-28) mmol/L ABG pH 7.40 (7.35-7.45) ABG Total CO2 28.7 H (22-28) mmol.L ABG O2 Saturation 98.4 H (95-98) % ABG O2 Content 11.7 L (15-23) ML/dl ABG Base Excess 2.2 (-2.0-3.0) mmol/L ABG Hemoglobin 8.3 L (11.7-17.4) g/dL ABG Carboxyhemoglobin 0.9 (0.5-1.5) % POC ABG HHb (Measured) 1.6 (0-5) % ABG Methemoglobin 0.0 (0.0-3.0) % ABG O2 Capacity 11.9 L (16-24) mL/dl Hgb O2 Saturation 97.5 (95.0-98.0) % FiO2 32.0 % Sodium 128 L (132-148) mmol/L Potassium 5.1 H (3.6-5.0) mmol/L Chloride 83 L (98-107) mmol/L Carbon Dioxide 36 H (21-33) mmol/L Anion Gap 14 (10-20) BUN 52 H (7-21) mg/dL Creatinine 1.0 (0.7-1.2) mg/dl Est GFR ( Amer) > 60 Est GFR (Non-Af Amer) 54 Random Glucose 381 H* D (70-110) mg/dL Calcium 7.8 L (8.4-10.5) mg/dL Phosphorus 5.1 H (2.5-4.5) mg/dL Magnesium 1.6 L (1.7-2.2) mg/dL Total Bilirubin 0.3 (0.2-1.3) mg/dL AST 141 H D (14-36) U/L ALT 172 H (7-56) U/L Alkaline Phosphatase 92 (38-126) U/L Lactate Dehydrogenase 636 (333-699) U/L Total Creatine Kinase 233 H (35-230) U/L CK-MB (CK-2) 4.8 H (0.0-3.6) ng/mL CK-MB (CK-2) % Cancelled Troponin I 0.10 D ng/mL Total Protein 6.2 (5.8-8.3) g/dL Albumin 3.1 (3.0-4.8) g/dL Globulin 3.1 gm/dL Albumin/Globulin Ratio 1.0 L (1.1-1.8) Laboratory Results - last 24 hr 10/17/17 10/17/17 10/17/17 05:00 06:40 06:40 WBC 12.7 H D RBC 4.19 Hgb 10.9 L Hct 36.2 MCV 86.4 MCH 26.0 MCHC 30.1 L RDW 17.1 H Plt Count 262 MPV 9.8 pCO2 44 pO2 132.0 H HCO3 27.3 ABG pH 7.40 ABG Total CO2 28.7 H ABG O2 Saturation 98.4 H ABG O2 Content 11.7 L ABG Base Excess 2.2 ABG Hemoglobin 8.3 L ABG Carboxyhemoglobin 0.9 POC ABG HHb (Measured) 1.6 ABG Methemoglobin 0.0 ABG O2 Capacity 11.9 L Hgb O2 Saturation 97.5 FiO2 32.0 Sodium 128 L Potassium 5.1 H Chloride 83 L Carbon Dioxide 36 H Anion Gap 14 BUN 52 H Creatinine 1.0 Est GFR ( Amer) > 60 Est GFR (Non-Af Amer) 54 Random Glucose 381 H* D Calcium 7.8 L Phosphorus 5.1 H Magnesium 1.6 L Total Bilirubin 0.3 AST 141 H D ALT 172 H Alkaline Phosphatase 92 Lactate Dehydrogenase 636 Total Creatine Kinase 233 H CK-MB (CK-2) 4.8 H CK-MB (CK-2) % Cancelled Troponin I 0.10 D Total Protein 6.2 Albumin 3.1 Globulin 3.1 Albumin/Globulin Ratio 1.0 L Critical Care Progress Note - Nutrition Nutrition: Nutrition Category Date Time Status Consistent Carbohydrate [DIET] Diets 10/16/17 Lunch Ordered Attending/Attestation - Attestation I have personally seen and examined this patient.: Yes I have fully participated in the care of the patient.: Yes I have reviewed all pertinent clinical information: Yes Notes (Text): 10/17/17 16:58 72 yo female with HCRF due to COPD exacerbation requiring intubation now extubated. steroid taper, abx, bronchodilators, BPAP at night. dvt/gi prophylaxis ccm time 40 min
--- NOTE | 2017-10-17 13:50 | CP.PCM.PN ---
Subjective - Date & Time of Evaluation Date of Evaluation: 10/17/17 Time of Evaluation: 09:30 - Subjective Subjective: Patient is now off the ventilator, now off pressors, no fevers, breathing better , still feels weak. Objective - Vital Signs/Intake and Output Vital Signs (last 24 hours): Temp Pulse Resp BP Pulse Ox 98.1 F 102 H 21 133/88 100 10/17/17 06:57 10/17/17 06:57 10/17/17 06:57 10/17/17 06:30 10/17/17 06:45 Intake and Output: 10/17/17 10/17/17 06:59 18:59 Intake Total 695 Output Total 110 Balance 585 - Medications Medications: Current Medications Albuterol/Ipratropium (Duoneb 3 Mg/0.5 Mg (3 Ml) Ud) 3 ml IH [id number] BRIANNA Last Admin: 10/17/17 07:02 Dose: 3 ml Allopurinol (Zyloprim) 300 mg PO DAILY [facility] Aspirin (Ecotrin) 81 mg PO DAILY [facility]NA Aspirin (Ecotrin) 81 mg PO DAILY [facility] Atorvastatin Calcium (Lipitor) 20 mg PO DAILY [facility] Clopidogrel Bisulfate (Plavix) 75 mg PO DAILY [facility]NA Clopidogrel Bisulfate (Plavix) 75 mg PO DAILY [facility]NA Last Admin: 10/16/17 18:17 Dose: 75 mg Furosemide (Lasix) 40 mg PO DAILY [facility]NA Gabapentin (Neurontin) 200 mg PO TID [facility]RIANNA PRN Reason: Protocol Last Admin: 10/16/17 18:16 Dose: 200 mg Heparin Sodium (Porcine) (Heparin) 5,000 units SC Q8 [facility]ANNA PRN Reason: Protocol Last Admin: 10/17/17 05:50 Dose: 5,000 units Acetaminophen (Ofirmev) 1,000 mg in 100 mls @ 400 mls/hr IVPB Q6H PRN PRN Reason: Temperature Stop: 10/18/17 04:41 Last Admin: 10/16/17 06:11 Dose: 400 mls/hr NOREPINEPHRINE BIT/0.9 % NACL (Levophed 4 Mg/ 250 Ml Ns Premixed) 4 mg in 250 mls @ 15 mls/hr IV .[id number] PRN; Protocol; 4 MCG/MIN PRN Reason: TITRATE PER MD ORDER Vancomycin HCl (Vancomycin 1gm) 1 gm in 250 mls @ 167 mls/hr IVPB DAILY [facility] PRN Reason: Protocol Last Admin: 10/16/17 10:28 Dose: 167 mls/hr Meropenem (Merrem Iv 1 Gm Premix) 50 mls @ 100 mls/hr IVPB Q8 BRIANNA PRN Reason: Protocol Stop: 10/24/17 11:34 Last Admin: 10/17/17 05:45 Dose: 100 mls/hr Insulin Human Regular (Humulin R Low) 0 units SC ACHS BRIANNA PRN Reason: Protocol Last Admin: 10/16/17 21:33 Dose: Not Given Isosorbide Mononitrate (Imdur) 60 mg PO DAILY [facility] Last Admin: 10/16/17 16:44 Dose: Not Given Lisinopril (Zestril) 30 mg PO DAILY [facility] Methylprednisolone (Solu-Medrol) 40 mg IVP Q8 [facility] Last Admin: 10/17/17 05:51 Dose: 40 mg Metoprolol Succinate (Toprol Xl) 50 mg PO DAILY [facility] Last Admin: 10/16/17 16:51 Dose: Not Given Pantoprazole Sodium (Protonix Inj) 40 mg IVP DAILY [facility] Last Admin: 10/16/17 10:22 Dose: 40 mg Prednisone (Prednisone Tab) 20 mg PO DAILY [facility] Last Admin: 10/16/17 18:15 Dose: Not Given Ropinirole HCl (Requip) 3 mg PO HS [facility] Last Admin: 10/16/17 21:31 Dose: 3 mg - Labs Labs: 10/16/17 06:25 10/16/17 06:25 - Constitutional Appears: Chronically Ill - Head Exam Head Exam: NORMAL INSPECTION - ENT Exam ENT Exam: Mucous Membranes Moist - Neck Exam Neck Exam: absent: Meningismus - Respiratory Exam Respiratory Exam: Decreased Breath Sounds, Wheezes (expiratory) - Cardiovascular Exam Cardiovascular Exam: +S1, +S2 - GI/Abdominal Exam GI & Abdominal Exam: Soft. absent: Tenderness Assessment and Plan - Assessment and Plan (Free Text) Plan: assessment Severe sepsis S/P shock S/P VDRF due to probable bilateral HCAP history of severe sepsis from Sphingomonas HCAP history of multifocal community-acquired pneumonia end-stage chronic obstructive pulmonary disease with a history of pulmonary nodules diabetes mellitus coronary artery disease S/P cardiac catheterization and placement of cardiac stents hypertension Questionable history of penicillin allergy (rash) and Doxycycline (although she has tolerated doxycycline in past admissions) Plan continue renally-adjusted Vancomycin and Merrem day 2 pending final culture results will continue to monitor clinically overall prognosis is poor
[2017-10-17] MEDS: Tiotropium 18 mcg Cap For Inhalation INH SCH (14:31)
--- NOTE | 2017-10-17 15:16 | PN ---
DATE: 10/17/2017 REASON FOR THE CONSULTATION: For cardiac evaluation followup, history of coronary artery disease, status post stent admitted with respiratory failure, successfully extubated. SUBJECTIVE: The patient denies any chest pain, shortness of breath or any palpitations. PHYSICAL EXAMINATION: GENERAL: Not in apparent distress, reading newspaper. VITAL SIGNS: Temperature afebrile, heart rate 111, normal sinus, blood pressure 130/80. HEENT: PERRLA. Extraocular muscles intact. NECK: Supple. No carotid bruit or thyromegaly. CHEST: Clear to auscultation. HEART: S1, S2 regular. ABDOMEN: Soft. EXTREMITIES: Clubbing and cyanosis negative. LABORATORY DATA: Blood workup as follows: WBC 12.7, hemoglobin 10.9, hematocrit 36.2, platelet count 262. Chemistry shows sodium 130, potassium 4.8, chloride 81, carbon dioxide 40, troponin 0.18. IMPRESSION: Acute respiratory failure, CO2 narcosis, advanced chronic obstructive pulmonary disease, on home oxygen, history of coronary artery disease, status post multiple stent, borderline troponin secondary to hemodynamic instability, the patient admitted from the Transitional Care Unit with a blood pressure of 60, respiratory failure, history of recent cardiac catheterization, nonobstructive coronary artery, small vessel disease. RECOMMENDATIONS: We will continue aspirin, continue subcutaneous heparin, continue Imdur, continue lisinopril, we will put low dose of Plavix because of having little troponin and the patient has multiple stent. We will follow with you. Discussed with the patient's family, , daughter, son and the patient herself and the nursing staff taking care of the patient. Medical treatment, no further invasive cardiac workup is required or planned. Continue atorvastatin. continue aspirin, continue Plavix. Discussed with Dr. Stratton. Trae Henry MD
--- NOTE | 2017-10-17 15:33 | PN ---
DATE: 10/17/2017 PULMONARY PROGRESS NOTE SUBJECTIVE: The patient was seen and examined in Intensive Care Unit. She is off BiPAP, currently on nasal cannula and her oxygen saturation is only 89-90 on nasal cannula. She is moderately short of breath, but not in acute respiratory distress. She is receiving intravenous Solu-Medrol as well as vancomycin and meropenem for presumed health-care associated pneumonia. PHYSICAL EXAMINATION: VITAL SIGNS: Her temperature is 98.8, pulse 107, respirations 20, pulse oximetry is 89 on nasal cannula, blood pressure 130/60. HEAD: Normocephalic and atraumatic. NECK: Supple. There is no jugular vein distentions. CARDIOVASCULAR: S1 and S2. No S3. Tachycardia. LUNGS: Diminished breath sounds bilaterally with scattered expiratory wheezes. No crackles. GASTROINTESTINAL: Soft and nontender. No organomegaly. EXTREMITIES: No pedal edema. SKIN: Clear with no skin rashes, no cyanosis. NEUROLOGIC: Limited at the present time. LABORATORY DATA: Her arterial blood gas, pH of 7.4, pCO2 of 44 and pO2 of 132. WBC is 12.7, hemoglobin of 10.9. ASSESSMENT: 1. Acute on chronic respiratory failure. 2. CO2 retention and hypoxia. 3. Noncompliance with BiPAP. 4. Chronic obstructive pulmonary disease and pulmonary fibrosis. PLAN: The patient's condition is improving. She is now using BiPAP at night and with naps. The arterial blood gas shows minimum CO2 retention; however, the oxygen level does not reflect the current oxygen saturation. She is sating 89 on nasal cannula that probably means pO2 in low 50s. I would keep the oxygen saturation relatively low between 88 and 93 to prevent recurrent CO2 retention. Continue with nebulizer treatments as well as BiPAP and current intervention. Her prognosis is extremely guarded. oYssi Granda MD MTDD
[2017-10-17] MEDS: Budesonide 0.5 mg/2 ml Inhal Susp UD IH SCH ×2 (18:42→23:45)
[2017-10-17] MEDS: Arformoterol 15 mcg/2 ml Inh Sol IH SCH ×2 (18:42→22:31)
[2017-10-17] MEDS ORDERED: Benzocaine/Menthol (Cepacol) Lozenge MT PRN (20:05)
--- NOTE | 2017-10-17 21:06 | PN ---
DATE: 10/17/2017 SUBJECTIVE: The patient is a 72 years old, seen and examined, doing better. No nausea, vomiting, no diarrhea, eating and tolerating. PHYSICAL EXAMINATION VITAL SIGNS: She is afebrile, pulse 97, respirations 21 and blood pressure 134/68. LUNGS: Bilateral fair airflow. Few occasional expiratory rhonchi on bases posteriorly. HEART: S1, S2 audible. ABDOMEN: Soft, nontender. No rebound, no guarding. NEUROLOGICAL: She is awake, alert, oriented, and communicative. EXTREMITIES: Moves all extremities. Bilateral legs, no edema. LABORATORY DATA: WBC 12.7, hemoglobin 10.9, hematocrit 36.2 and platelets of 262. Chemistry; sodium 128, potassium 5.1, chloride 83, CO2 36, BUN 52, creatinine 1, troponin 1. Blood sugar 381. Magnesium 1.6, AST 141, ALT 172, CPK 233. ASSESSMENT: 1. Status post respiratory failure. 2. Recent non-ST elevation myocardial infarction. 3. Hypertension. 4. Hyperlipidemia. 5. Coronary artery disease status post angioplasty. 6. Restless leg syndrome. PLAN: The patient will be transferred to telemetry. We will continue on nebulizer treatment. Monitor her blood sugar. She is on DVT prophylaxis. We will follow up her CBC and CMP in a.m. Ten Sher MD
[2017-10-17] MEDS: Albuterol-Ipratrop 3 mg / 0.5 (3 ml) UD IH PRN (23:12)
[2017-10-18] MEDS: Albuterol-Ipratrop 3 mg / 0.5 (3 ml) UD IH SCH ×4 (01:51→19:29)
[2017-10-18] MEDS ORDERED: Insulin Regular 1 UNITS/0.01 ML ML SC STA (02:23)
[2017-10-18] MEDS: Albuterol-Ipratrop 3 mg / 0.5 (3 ml) UD IH PRN ×2 (05:39→11:24)
[2017-10-18 07:07] LABS: HEMOGLOBIN 10.6 g/dL (12.0-16.0); MEAN CELL VOLUME 86.9 fl (80.0-105.0); MEAN CORPUSCULAR HEMOGLOBIN 26.6 pg (25.0-35.0); MEAN CORPUSCULAR HGB CONC 30.6 g/dl (31.0-37.0); MEAN PLATELET VOLUME 9.7 fl (7.0-11.0); RBC 3.98 10^6/uL (3.5-6.1); WHITE BLOOD COUNT 15.6 10^3/ul (4.5-11.0)
[2017-10-18 07:24] LABS: TROPONIN I 0.09 ng/mL
[2017-10-18] MEDS: Arformoterol 15 mcg/2 ml Inh Sol IH SCH ×2 (07:29→19:32)
[2017-10-18] MEDS: Budesonide 0.5 mg/2 ml Inhal Susp UD IH SCH ×2 (07:30→19:32)
[2017-10-18] MEDS: Insulin Reg-LOW-Coverage SC SCH ×4 (08:25→22:00)
[2017-10-18] MEDS: Pantoprazole 40 mg EC Tab PO SCH (08:25)
--- NOTE | 2017-10-18 08:26 | CP.PCM.PN ---
Subjective - Date & Time of Evaluation Date of Evaluation: 10/18/17 Time of Evaluation: 06:35 - Subjective Subjective: Awake,alert, no distress, denies chest pain Reason for consultation and follow up: Cardiac follow up post respiratory failure, post intubation, history of coronary artery disease with stents, hyperlipidemia,COPD,asthma, Seen and examined by me and Dr. Henry Objective - Vital Signs/Intake and Output Vital Signs (last 24 hours): Temp Pulse Resp BP Pulse Ox 98.2 F 97 H 20 144/63 95 10/18/17 06:00 10/18/17 06:54 10/18/17 06:54 10/18/17 06:00 10/18/17 06:54 Intake and Output: 10/18/17 10/18/17 06:59 18:59 Intake Total 1060 Balance 1060 - Medications Medications: Current Medications Acetaminophen (Tylenol 325mg Tab) 650 mg PO Q6H PRN PRN Reason: Fever >100.5 F Albuterol/Ipratropium (Duoneb 3 Mg/0.5 Mg (3 Ml) Ud) 3 ml IH [id number] [facility] Last Admin: 10/18/17 07:29 Dose: 3 ml Albuterol/Ipratropium (Duoneb 3 Mg/0.5 Mg (3 Ml) Ud) 3 ml IH Q2H PRN PRN Reason: Shortness of Breath Last Admin: 10/18/17 05:39 Dose: 3 ml Allopurinol (Zyloprim) 300 mg PO DAILY [facility] Last Admin: 10/17/17 09:31 Dose: 300 mg Arformoterol Tartrate (Brovana) 15 mcg IH [id number] [facility] Last Admin: 10/18/17 07:29 Dose: 15 mcg Aspirin (Ecotrin) 81 mg PO DAILY [facility] Last Admin: 10/17/17 09:30 Dose: 81 mg Atorvastatin Calcium (Lipitor) 20 mg PO DAILY [facility] Last Admin: 10/17/17 09:30 Dose: 20 mg Benzocaine/Menthol (Cepacol Sore Throat) 1 jack MT Q2H PRN PRN Reason: Sore Throat Last Admin: 10/17/17 21:41 Dose: 1 jack Budesonide (Pulmicort Respules) 0.5 mg IH [id number] [facility] Last Admin: 10/18/17 07:30 Dose: 0.5 mg Clopidogrel Bisulfate (Plavix) 75 mg PO DAILY [facility] Last Admin: 10/17/17 11:38 Dose: 75 mg Furosemide (Lasix) 40 mg PO DAILY [facility] Last Admin: 10/17/17 09:29 Dose: 40 mg Gabapentin (Neurontin) 200 mg PO TID [facility] PRN Reason: Protocol Last Admin: 10/17/17 17:19 Dose: 200 mg Heparin Sodium (Porcine) (Heparin) 5,000 units SC Q8 [facility] PRN Reason: Protocol Last Admin: 10/18/17 05:05 Dose: 5,000 units Meropenem (Merrem Iv 1 Gm Premix) 50 mls @ 100 mls/hr IVPB Q12 [facility] PRN Reason: Protocol Stop: 10/25/17 10:01 Last Admin: 10/17/17 21:42 Dose: 100 mls/hr Insulin Human Regular (Humulin R Low) 0 units SC ACHS [facility]ANNA PRN Reason: Protocol Last Admin: 10/17/17 21:40 Dose: 4 u Isosorbide Mononitrate (Imdur) 60 mg PO DAILY [facility] Last Admin: 10/17/17 09:30 Dose: 60 mg Lisinopril (Zestril) 30 mg PO DAILY [facility] Last Admin: 10/17/17 09:28 Dose: 30 mg Metoprolol Succinate (Toprol Xl) 50 mg PO DAILY [facility] Last Admin: 10/17/17 09:31 Dose: 50 mg Pantoprazole Sodium (Protonix Ec Tab) 40 mg PO ACB [facility] Prednisone (Prednisone Tab) 20 mg PO DAILY [facility] Last Admin: 10/17/17 09:30 Dose: 20 mg Ropinirole HCl (Requip) 3 mg PO HS [facility] Last Admin: 10/17/17 21:41 Dose: 3 mg Tiotropium [place] (Spiriva) 18 mcg INH DAILY [facility] Last Admin: 10/17/17 14:31 Dose: 18 mcg - Labs Labs: 10/18/17 06:45 10/17/17 06:40 - Constitutional Appears: No Acute Distress - Eye Exam Eye Exam: Normal appearance - ENT Exam ENT Exam: Mucous Membranes Moist - Respiratory Exam Respiratory Exam: Decreased Breath Sounds, Rhonchi, NORMAL BREATHING PATTERN Additional comments: nasal cannula - Cardiovascular Exam Cardiovascular Exam: +S1, +S2 - GI/Abdominal Exam GI & Abdominal Exam: Soft, Normal Bowel Sounds - Extremities Exam Additional comments: 1+edema - Neurological Exam Neurological Exam: Alert, Awake, Oriented x3 - Psychiatric Exam Psychiatric exam: Normal Affect - Skin Skin Exam: Dry, Warm Assessment and Plan - Assessment and Plan (Free Text) Assessment: A 72 year old female who was initially admiitted on 10/03/17 for exacerbation of COPD and positive troponins. Cardiac cath was done and revealed non obstructive coronary artery disease. She was managed and treated medically. MUGA scan showed LVEF of 60%. She was transferred to TCU for reconditioning and physical therapy. While in TCU, very sleepy and ABG was done and showed CO2 of 94 consistent with CO2 narcosis. She was transferred to ICU and was eventually intubated. Respiratory improved and was extubated and transferred to telemetry. History of coronary artery disease with multiple stents,COPD (home oxygen), NSTEMI, asthma, bronchitis,hypertension, hyperlipidemia. Plan: Sitting in bed no distress Nebulizer treatment ongoing On nasal cannula Stable heart rate and blood pressure Continue current treatment Continue current medications Physical therapy Pulmonary on consult Will follow up Plan and treatment discussed with Dr. Henry
[2017-10-18] MEDS: Tiotropium 18 mcg Cap For Inhalation INH SCH (09:47)
[2017-10-18] MEDS: Meropenem IV 1 gm in NS 50 ML IVPB SCH ×2 (09:47→22:01)
[2017-10-18 09:52] LABS: ALB/GLOB RATIO 0.9 (1.1-1.8); ALT/SGPT 163 U/L (7-56); AST/SGOT 111 U/L (14-36); BLOOD UREA NITROGEN 51 mg/dL (7-21); CALCIUM 8.2 mg/dL (8.4-10.5); GFR AFRICAN-AMERICAN > 60; GFR NON-AFRICAN AMERICAN > 60
--- NOTE | 2017-10-18 11:20 | PN ---
DATE: 10/18/2017 PULMONARY PROGRESS NOTE SUBJECTIVE: The patient has been out of the Intensive Care Unit, extubated for 24 hours. She is sitting up in bed drinking coffee. She is fully awake and alert, able to carry out complete conversations. The patient relayed to me the fact that she remains a DNR/DNI and no longer wants to be intubated even if necessary. She also states that at this time, she would like to go home to . She does not want any further intervention with [facility], but does want to continue her medications to try to obtain the best possible lifestyle at this time. PHYSICAL EXAMINATION: GENERAL: The patient is sitting in bed, comfortable, in no acute respiratory distress. VITAL SIGNS: She remains afebrile with a pulse of 90, respiratory rate is 18, blood pressure 140/70, oxygen saturation is 92% on supplemental oxygen. HEENT: Head normocephalic, atraumatic. NECK: Supple. No JVD. No lymphadenopathy. HEART: Regular rhythm. S1, S2. No gallop. CHEST: Global decrease in breath sounds throughout. No wheezing or rales noted today. No rhonchi are appreciated as well. ABDOMEN: Soft. Bowel sounds normoactive without mass, guarding, rebound or organomegaly. EXTREMITIES: Reveal no clubbing, cyanosis or edema. SKIN: No rash or excoriation. NEUROLOGIC: Awake and alert, oriented. No focal findings. LYMPH NOTES: No lymphadenopathy is noted in the supraclavicular notch nor in the cervical, inguinal or axillary areas. LABORATORY DATA: The last blood gas noted is a pH of 7.40, pCO2 of 44 and a pO2 of 132. ASSESSMENT: 1. Status post acute respiratory failure. 2. Chronic respiratory insufficiency. 3. Carbon dioxide retention and hypoxemia. 4. Trilogy ventilator at home for respiratory insufficiency. 5. Severe end-stage chronic obstructive pulmonary disease. PLAN: I will discuss the patient's request with the primary medical doctor and the patient's daughter who I know well. It is understandable that she has had a horrible course of events over the last several months. It is not an unusual request to be on hospice at home. If this is the case, I will make every effort to see her at home as required. Vigorous bronchodilator therapy remains in order as well as use of the Trilogy ventilator to give her rest while sleeping. We will discuss these problems with Dr. Sher and the patient's daughter and decide on the appropriate care, continue the corticosteroids as discussed previously. Mk Chamberlain MD MTDVinny
[2017-10-18] MEDS: Magnesium Oxide 400 mg Tab UD PO SCH ×2 (12:03→17:03)
--- NOTE | 2017-10-18 12:41 | CP.PCM.PN ---
Subjective - Date & Time of Evaluation Date of Evaluation: 10/18/17 Time of Evaluation: 10:15 - Subjective Subjective: Still having shortness of breath at rest, no fevers, still with cough. Objective - Vital Signs/Intake and Output Vital Signs (last 24 hours): Temp Pulse Resp BP Pulse Ox 98.2 F 91 H 20 144/63 96 10/18/17 06:00 10/18/17 06:00 10/18/17 06:00 10/18/17 06:00 10/18/17 06:00 Intake and Output: 10/17/17 10/18/17 18:59 06:59 Intake Total 800 1060 Output Total 1500 Balance -700 1060 - Medications Medications: Current Medications Acetaminophen (Tylenol 325mg Tab) 650 mg PO Q6H PRN PRN Reason: Fever >100.5 F Albuterol/Ipratropium (Duoneb 3 Mg/0.5 Mg (3 Ml) Ud) 3 ml IH [id number] [facility] Last Admin: 10/18/17 01:51 Dose: 3 ml Albuterol/Ipratropium (Duoneb 3 Mg/0.5 Mg (3 Ml) Ud) 3 ml IH Q2H PRN PRN Reason: Shortness of Breath Last Admin: 10/18/17 05:39 Dose: 3 ml Allopurinol (Zyloprim) 300 mg PO DAILY [facility] Last Admin: 10/17/17 09:31 Dose: 300 mg Arformoterol Tartrate (Brovana) 15 mcg IH [id number] [facility] Last Admin: 10/17/17 22:31 Dose: Not Given Aspirin (Ecotrin) 81 mg PO DAILY [facility] Last Admin: 10/17/17 09:30 Dose: 81 mg Atorvastatin Calcium (Lipitor) 20 mg PO DAILY [facility] Last Admin: 10/17/17 09:30 Dose: 20 mg Benzocaine/Menthol (Cepacol Sore Throat) 1 jack MT Q2H PRN PRN Reason: Sore Throat Last Admin: 10/17/17 21:41 Dose: 1 jack Budesonide (Pulmicort Respules) 0.5 mg IH [id number] [facility] Last Admin: 10/17/17 23:45 Dose: Not Given Clopidogrel Bisulfate (Plavix) 75 mg PO DAILY [facility] Last Admin: 10/17/17 11:38 Dose: 75 mg Furosemide (Lasix) 40 mg PO DAILY [facility] Last Admin: 10/17/17 09:29 Dose: 40 mg Gabapentin (Neurontin) 200 mg PO TID [facility]NA PRN Reason: Protocol Last Admin: 10/17/17 17:19 Dose: 200 mg Heparin Sodium (Porcine) (Heparin) 5,000 units SC Q8 [facility]NA PRN Reason: Protocol Last Admin: 10/18/17 05:05 Dose: 5,000 units Meropenem (Merrem Iv 1 Gm Premix) 50 mls @ 100 mls/hr IVPB Q12 [facility]NA PRN Reason: Protocol Stop: 10/25/17 10:01 Last Admin: 10/17/17 21:42 Dose: 100 mls/hr Insulin Human Regular (Humulin R Low) 0 units SC ACHS [facility]ANNA PRN Reason: Protocol Last Admin: 10/17/17 21:40 Dose: 4 u Isosorbide Mononitrate (Imdur) 60 mg PO DAILY [facility] Last Admin: 10/17/17 09:30 Dose: 60 mg Lisinopril (Zestril) 30 mg PO DAILY [facility] Last Admin: 10/17/17 09:28 Dose: 30 mg Metoprolol Succinate (Toprol Xl) 50 mg PO DAILY [facility] Last Admin: 10/17/17 09:31 Dose: 50 mg Pantoprazole Sodium (Protonix Ec Tab) 40 mg PO ACB [facility] Prednisone (Prednisone Tab) 20 mg PO DAILY [facility] Last Admin: 10/17/17 09:30 Dose: 20 mg Ropinirole HCl (Requip) 3 mg PO HS [facility] Last Admin: 10/17/17 21:41 Dose: 3 mg Tiotropium [place] (Spiriva) 18 mcg INH DAILY [facility] Last Admin: 10/17/17 14:31 Dose: 18 mcg - Labs Labs: 10/17/17 06:40 10/17/17 06:40 - Constitutional Appears: Chronically Ill - Head Exam Head Exam: NORMAL INSPECTION - Respiratory Exam Respiratory Exam: Decreased Breath Sounds - Cardiovascular Exam Cardiovascular Exam: +S1, +S2 - GI/Abdominal Exam GI & Abdominal Exam: Soft. absent: Tenderness Assessment and Plan - Assessment and Plan (Free Text) Plan: assessment Severe sepsis S/P shock S/P VDRF due to probable bilateral HCAP, now growing Pseudomonas (multidrug-resistant) from the sputum history of severe sepsis from Sphingomonas HCAP history of multifocal community-acquired pneumonia end-stage chronic obstructive pulmonary disease with a history of pulmonary nodules diabetes mellitus coronary artery disease S/P cardiac catheterization and placement of cardiac stents hypertension Questionable history of penicillin allergy (rash) and Doxycycline (although she has tolerated doxycycline in past admissions) Plan d/c'ed Vancomycin and will continue Merrem day 3 and give a dose of IV Amikacin and will monitor kidney function will continue to monitor clinically overall prognosis is poor - discussed with family
[2017-10-18] MEDS ORDERED: WATER IVPB ONE (12:45)
[2017-10-18] MEDS ORDERED: DEXTROSE 5% IVPB ONE (12:45)
[2017-10-18] MEDS ORDERED: AMIKACIN IVPB ONE (12:45)
--- NOTE | 2017-10-18 13:01 | PN ---
DATE: 10/18/2017 SUBJECTIVE: The patient is 72 years old, seen and examined, sitting in chair, seems to be comfortable except she has mild shortness of breath. Complained of cough productive, whitish to yellow. No chest pain. She states she feels exhausted. PHYSICAL EXAMINATION: VITAL SIGNS: She is afebrile, pulse 96, respirations 22, and blood pressure 154/76. LUNGS: Bilateral decreased breath sounds. HEART: S1, S2 audible. ABDOMEN: Soft, nontender. No rebound, no guarding. NEUROLOGICAL: She is awake, alert, oriented, able to communicate. EXTREMITIES: Bilateral leg, no edema. LABORATORY EXAM: WBC 15.6, hemoglobin 10.6, hematocrit 34.6, and platelets 280. Chemistry: Sodium 131, potassium 4.9, chloride 83, CO2 more than 40. BUN 51, creatinine 0.8. Blood sugar of 297. Magnesium 1.6. AST 111, ALT 163. LDH is 758. Urine has Enterococcus faecalis and tracheal aspirate has Pseudomonas aeruginosa. ASSESSMENT: 1. Status post respiratory failure. 2. Chronic obstructive pulmonary disease exacerbation. 3. Status post [id number] myocardial infarction. 4. Hypertension. 5. Coronary artery disease, status post multiple angioplasties. 6. Insulin-dependent diabetes. 7. Enterococcus faecalis urinary tract infection. 8. Deconditioning and difficulty walking. PLAN: I will continue the patient on nebulizer treatment. She is on DVT prophylaxis. We will monitor her blood sugar. Start her on Klonopin. Continue her on Lasix. She has been started on magnesium oxide. Currently, she is on meropenem. She is on prednisone 20 mg daily. I discussed with the patient at length, she does not want to have intubation done. She said I do not mind having BiPAP or CPAP if needed. I will request for TCU evaluation, but the patient eventually want to go home soon. Ten Sher MD
[2017-10-18] MEDS: Metoprolol Succinate 50 mg XL Tab PO SCH (14:48)
[2017-10-18] MEDS ORDERED: Furosemide 10 mg/mL LIQ (60mL) PO STA (21:38)
[2017-10-19] MEDS: Albuterol-Ipratrop 3 mg / 0.5 (3 ml) UD IH SCH ×4 (02:18→19:30)
[2017-10-19 06:21] LABS: HEMOGLOBIN 10.9 g/dL (12.0-16.0); MEAN CELL VOLUME 87.9 fl (80.0-105.0); MEAN CORPUSCULAR HEMOGLOBIN 26.3 pg (25.0-35.0); MEAN CORPUSCULAR HGB CONC 29.9 g/dl (31.0-37.0); MEAN PLATELET VOLUME 9.6 fl (7.0-11.0); RBC 4.14 10^6/uL (3.5-6.1); WHITE BLOOD COUNT 13.8 10^3/ul (4.5-11.0)
[2017-10-19 06:49] LABS: TROPONIN I 0.1 ng/mL
[2017-10-19] MEDS: Budesonide 0.5 mg/2 ml Inhal Susp UD IH SCH ×2 (07:34→19:31)
[2017-10-19] MEDS: Arformoterol 15 mcg/2 ml Inh Sol IH SCH ×2 (07:34→19:30)
[2017-10-19] MEDS: Pantoprazole 40 mg EC Tab PO SCH (08:28)
[2017-10-19] MEDS: Insulin Reg-LOW-Coverage SC SCH ×4 (08:28→22:08)
[2017-10-19] MEDS ORDERED: Morphine 2 mg/ml ISec IVP STA (09:17)
--- NOTE | 2017-10-19 10:03 | PN ---
DATE: 10/19/2017 PULMONARY PROGRESS NOTE SUBJECTIVE: The patient was seen and examined on Telemetry. She is currently off BiPAP, on nasal cannula and she is in [id number] respiratory distress. PHYSICAL EXAMINATION: VITAL SIGNS: Temperature is 98, pulse 97, respirations 24, pulse oximetry is 95 on BiPAP, blood pressure is 180/90. HEENT: Head, normocephalic and atraumatic. NECK: Supple. There is no jugular vein distention. CARDIOVASCULAR: S1 and S2. No S3. Regular. PULMONARY: Markedly diminished breath sounds bilaterally with a few scattered rhonchi and expiratory wheezes. GI: Soft, nontender. No organomegaly. EXTREMITIES: No pedal edema. No cyanosis. SKIN: No acute skin rash. NEUROLOGIC: Limited at the present time. ASSESSMENT AND PLAN: 1. Omvhk-vx-gnhroph respiratory failure. 2. Chronic obstructive pulmonary disease. 3. Coronary artery disease. PLAN: I reviewed today's laboratories here. WBC is slightly elevated at 13.8, hemoglobin of 10.9. She is in a [id number] respiratory distress now, only half hour of BiPAP. I discussed this with Nursing. She may have to go back on BiPAP during the day as well as all night. Continue with maximum bronchodilator therapy and nebulizer treatments as well as intravenous steroids. Her prognosis is extremely guarded. I discussed this with Nursing. Yossi Granda MD MTDD
[2017-10-19] MEDS: Magnesium Oxide 400 mg Tab UD PO SCH (10:53)
--- NOTE | 2017-10-19 13:54 | CP.PCM.PN ---
Subjective - Date & Time of Evaluation Date of Evaluation: 10/19/17 Time of Evaluation: 11:10 - Subjective Subjective: Patient is still having shortness of breath at rest, still with cough, no fevers. Objective - Vital Signs/Intake and Output Vital Signs (last 24 hours): Temp Pulse Resp BP Pulse Ox 98.6 F 99 H 20 189/91 H 95 10/19/17 06:00 10/19/17 06:00 10/19/17 06:00 10/19/17 06:55 10/19/17 06:00 Intake and Output: 10/19/17 10/19/17 06:59 18:59 Intake Total 220 Output Total 450 Balance -230 - Medications Medications: Current Medications Acetaminophen (Tylenol 325mg Tab) 650 mg PO Q6H PRN PRN Reason: Fever >100.5 F Acetaminophen (Tylenol 325mg Tab) 650 mg PO Q6H PRN PRN Reason: Pain, Mild (1-3) Last Admin: 10/18/17 16:34 Dose: 650 mg Albuterol/Ipratropium (Duoneb 3 Mg/0.5 Mg (3 Ml) Ud) 3 ml IH [id number] [facility] Last Admin: 10/19/17 07:34 Dose: 3 ml Albuterol/Ipratropium (Duoneb 3 Mg/0.5 Mg (3 Ml) Ud) 3 ml IH Q2H PRN PRN Reason: Shortness of Breath Last Admin: 10/18/17 11:24 Dose: 3 ml Allopurinol (Zyloprim) 300 mg PO DAILY [facility] Last Admin: 10/18/17 09:48 Dose: 300 mg Arformoterol Tartrate (Brovana) 15 mcg IH [id number] [facility] Last Admin: 10/19/17 07:34 Dose: 15 mcg Aspirin (Ecotrin) 81 mg PO DAILY [facility] Last Admin: 10/18/17 09:48 Dose: 81 mg Atorvastatin Calcium (Lipitor) 20 mg PO DAILY [facility] Last Admin: 10/18/17 09:48 Dose: 20 mg Benzocaine/Menthol (Cepacol Sore Throat) 1 jack MT Q2H PRN PRN Reason: Sore Throat Last Admin: 10/17/17 21:41 Dose: 1 jack Budesonide (Pulmicort Respules) 0.5 mg IH [id number] [facility] Last Admin: 10/19/17 07:34 Dose: 0.5 mg Clonazepam (Klonopin) 0.5 mg PO BID PRN; Protocol PRN Reason: Anxiety Last Admin: 10/18/17 12:04 Dose: 0.5 mg Clopidogrel Bisulfate (Plavix) 75 mg PO DAILY [facility] Last Admin: 10/18/17 09:48 Dose: 75 mg Furosemide (Lasix) 40 mg PO DAILY [facility] Last Admin: 10/18/17 09:48 Dose: 40 mg Gabapentin (Neurontin) 200 mg PO TID [facility] PRN Reason: Protocol Last Admin: 10/18/17 17:02 Dose: 200 mg Heparin Sodium (Porcine) (Heparin) 5,000 units SC Q8 [facility] PRN Reason: Protocol Last Admin: 10/19/17 05:43 Dose: 5,000 units Hydralazine HCl (Apresoline) 10 mg PO QID PRN PRN Reason: for sbp>160 Meropenem (Merrem Iv 1 Gm Premix) 50 mls @ 100 mls/hr IVPB Q8 [facility] PRN Reason: Protocol Stop: 10/27/17 14:01 Insulin Human Regular (Humulin R Low) 0 units SC ACHS [facility] PRN Reason: Protocol Last Admin: 10/19/17 08:28 Dose: 3 u Isosorbide Mononitrate (Imdur) 60 mg PO DAILY [facility] Last Admin: 10/18/17 09:48 Dose: 60 mg Lisinopril (Zestril) 30 mg PO DAILY [facility] Last Admin: 10/18/17 09:48 Dose: 30 mg Magnesium Oxide (Mag-Ox) 400 mg PO BID [facility] Last Admin: 10/18/17 17:03 Dose: 400 mg Metoprolol Succinate (Toprol Xl) 50 mg PO DAILY [facility] Last Admin: 10/18/17 14:48 Dose: 50 mg Pantoprazole Sodium (Protonix Ec Tab) 40 mg PO ACB [facility] Last Admin: 10/19/17 08:28 Dose: 40 mg Prednisone (Prednisone Tab) 20 mg PO DAILY [facility] Last Admin: 10/18/17 09:48 Dose: 20 mg Ropinirole HCl (Requip) 3 mg PO HS [facility] Last Admin: 10/18/17 22:01 Dose: 3 mg Tiotropium [place] (Spiriva) 18 mcg INH DAILY [facility] Last Admin: 10/18/17 09:47 Dose: 18 mcg - Labs Labs: 10/19/17 05:50 10/18/17 06:45 - Constitutional Appears: Chronically Ill - Head Exam Head Exam: NORMAL INSPECTION - Neck Exam Neck Exam: absent: Meningismus - Respiratory Exam Respiratory Exam: Decreased Breath Sounds - Cardiovascular Exam Cardiovascular Exam: +S1, +S2 - GI/Abdominal Exam GI & Abdominal Exam: Soft, Tenderness Assessment and Plan - Assessment and Plan (Free Text) Plan: assessment Severe sepsis S/P shock S/P VDRF due to probable bilateral HCAP, now growing Pseudomonas (multidrug-resistant) from the sputum history of severe sepsis from Sphingomonas HCAP history of multifocal community-acquired pneumonia end-stage chronic obstructive pulmonary disease with a history of pulmonary nodules diabetes mellitus coronary artery disease S/P cardiac catheterization and placement of cardiac stents hypertension Questionable history of penicillin allergy (rash) and Doxycycline (although she has tolerated doxycycline in past admissions) Plan d/c'ed Vancomycin and will continue Merrem day 4 and gave a dose of IV Amikacin and will monitor kidney function will continue to monitor clinically overall prognosis is poor - discussed with family
--- NOTE | 2017-10-19 15:02 | PN ---
DATE: 10/19/2017 REASON FOR CONSULTATION AND FOLLOWUP: Cardiac evaluation, followup of coronary artery disease, status post CO2 narcosis and respiratory failure. SUBJECTIVE: Family members at the bedside. Denies any chest pain, shortness of breath, or any palpitation. OBJECTIVE: GENERAL: Not in apparent distress. VITAL SIGNS: Temperature afebrile, heart rate 86, blood pressure 189/91. HEENT: PERRLA. Extraocular muscles intact. NECK: Supple. No carotid bruit or thyromegaly. CHEST: Clear to auscultation. HEART: S1 and S2 regular. ABDOMEN: Soft. EXTREMITIES: Clubbing and cyanosis, negative. LABORATORY DATA: Blood workup as follows: WBC 13.8, hemoglobin 10.9, hematocrit 36.4, platelet count 239. Chemistry shows sodium 131, potassium 4.9, chloride 83, carbon dioxide 40, anion gap of , creatinine 0.9. IMPRESSION: A 72-year-old female with a past medical history significant for coronary artery disease, status post multiple stents; severely advanced chronic obstructive pulmonary disease, on home oxygen; admitted to Transitional Care Unit where the patient went into carbon dioxide narcosis, transferred to Intensive Care Unit back, intubated and subsequently extubated. Patient has advanced chronic obstructive pulmonary disease, family wanted her to be made a do not resuscitate. RECOMMENDATIONS: Continue supportive care. Troponin is positive secondary to hemodynamic instability. Recent cardiac catheterization revealed patent stent. Continue gentle diuretics. Continue nitrates. Continue atorvastatin. We will start p.r.n. hydralazine; because of a stressful situation, the patient has a blood pressure of 170; otherwise, the patient runs 107 to 108. We will give 10 mg p.o. every 6 hour p.r.n. for systolic more than 160. Continue supportive care. We will consider discontinuing Telemetry. Trae Henry MD
[2017-10-19] MEDS: Meropenem IV 1 gm in NS 50 ML IVPB SCH ×2 (15:06→22:09)
[2017-10-19] MEDS: Metoprolol Succinate 50 mg XL Tab PO SCH (17:42)
[2017-10-19] MEDS: Tiotropium 18 mcg Cap For Inhalation INH SCH (17:43)
[2017-10-20] MEDS: Albuterol-Ipratrop 3 mg / 0.5 (3 ml) UD IH SCH ×4 (01:40→19:33)
[2017-10-20] MEDS: Meropenem IV 1 gm in NS 50 ML IVPB SCH ×3 (06:08→22:16)
[2017-10-20 06:30] LABS: HEMOGLOBIN 10.2 g/dL (12.0-16.0); MEAN CELL VOLUME 88.4 fl (80.0-105.0); MEAN CORPUSCULAR HEMOGLOBIN 25.7 pg (25.0-35.0); MEAN CORPUSCULAR HGB CONC 29.1 g/dl (31.0-37.0); MEAN PLATELET VOLUME 9.9 fl (7.0-11.0); RBC 3.97 10^6/uL (3.5-6.1); RED CELL DISTRIBUTION WIDTH 17.2 % (11.5-14.5)
[2017-10-20] MEDS: Budesonide 0.5 mg/2 ml Inhal Susp UD IH SCH ×2 (07:41→19:33)
[2017-10-20] MEDS: Arformoterol 15 mcg/2 ml Inh Sol IH SCH (07:41)
--- NOTE | 2017-10-20 09:42 | CP.PCM.PN ---
Subjective - Date & Time of Evaluation Date of Evaluation: 10/20/17 Time of Evaluation: 06:30 - Subjective Subjective: Awake,alert, no distress, denies chest pain.son at bedside Reason for consultation and follow up: Cardiac follow up post respiratory failure, post intubation, history of coronary artery disease with stents, hyperlipidemia,COPD,asthma, Seen and examined by me and Dr. Henry Objective - Vital Signs/Intake and Output Vital Signs (last 24 hours): Temp Pulse Resp BP Pulse Ox 97.6 F 98 H 18 153/82 H 99 10/20/17 05:33 10/20/17 05:34 10/20/17 05:33 10/20/17 05:33 10/20/17 05:33 Intake and Output: 10/20/17 10/20/17 06:59 18:59 Intake Total 350 Output Total 900 Balance -550 - Medications Medications: Current Medications Acetaminophen (Tylenol 325mg Tab) 650 mg PO Q6H PRN PRN Reason: Fever >100.5 F Acetaminophen (Tylenol 325mg Tab) 650 mg PO Q6H PRN PRN Reason: Pain, Mild (1-3) Last Admin: 10/18/17 16:34 Dose: 650 mg Albuterol/Ipratropium (Duoneb 3 Mg/0.5 Mg (3 Ml) Ud) 3 ml IH [id number] [facility] Last Admin: 10/20/17 07:41 Dose: 3 ml Albuterol/Ipratropium (Duoneb 3 Mg/0.5 Mg (3 Ml) Ud) 3 ml IH Q2H PRN PRN Reason: Shortness of Breath Last Admin: 10/18/17 11:24 Dose: 3 ml Allopurinol (Zyloprim) 300 mg PO DAILY [facility] Last Admin: 10/19/17 17:42 Dose: Not Given Arformoterol Tartrate (Brovana) 15 mcg IH [id number] [facility] Last Admin: 10/20/17 07:41 Dose: 15 mcg Aspirin (Ecotrin) 81 mg PO DAILY [facility] Last Admin: 10/19/17 10:52 Dose: Not Given Atorvastatin Calcium (Lipitor) 20 mg PO DAILY [facility] Last Admin: 10/19/17 10:53 Dose: Not Given Benzocaine/Menthol (Cepacol Sore Throat) 1 jack MT Q2H PRN PRN Reason: Sore Throat Last Admin: 10/17/17 21:41 Dose: 1 jack Budesonide (Pulmicort Respules) 0.5 mg IH [id number] [facility] Last Admin: 10/20/17 07:41 Dose: 0.5 mg Clonazepam (Klonopin) 0.5 mg PO BID PRN; Protocol PRN Reason: Anxiety Last Admin: 10/18/17 12:04 Dose: 0.5 mg Clopidogrel Bisulfate (Plavix) 75 mg PO DAILY [facility] Last Admin: 10/19/17 10:53 Dose: Not Given Furosemide (Lasix) 40 mg PO DAILY [facility] Last Admin: 10/19/17 10:53 Dose: Not Given Gabapentin (Neurontin) 200 mg PO TID [facility] PRN Reason: Protocol Last Admin: 10/19/17 17:49 Dose: Not Given Heparin Sodium (Porcine) (Heparin) 5,000 units SC Q8 [facility] PRN Reason: Protocol Last Admin: 10/20/17 06:08 Dose: 5,000 units Hydralazine HCl (Apresoline) 10 mg PO QID PRN PRN Reason: for sbp>160 Meropenem (Merrem Iv 1 Gm Premix) 50 mls @ 100 mls/hr IVPB Q8 [facility] PRN Reason: Protocol Stop: 10/27/17 14:01 Last Admin: 10/20/17 06:08 Dose: 100 mls/hr Insulin Human Regular (Humulin R Low) 0 units SC ACHS [facility] PRN Reason: Protocol Last Admin: 10/19/17 22:08 Dose: 2 u Isosorbide Mononitrate (Imdur) 60 mg PO DAILY [facility] Last Admin: 10/19/17 10:52 Dose: Not Given Lisinopril (Zestril) 30 mg PO DAILY [facility] Last Admin: 10/19/17 17:42 Dose: Not Given Magnesium Oxide (Mag-Ox) 400 mg PO BID [facility] Last Admin: 10/19/17 10:53 Dose: Not Given Metoprolol Succinate (Toprol Xl) 50 mg PO DAILY [facility] Last Admin: 10/19/17 17:42 Dose: Not Given Pantoprazole Sodium (Protonix Ec Tab) 40 mg PO ACB [facility] Last Admin: 10/19/17 08:28 Dose: 40 mg Prednisone (Prednisone Tab) 20 mg PO DAILY [facility] Last Admin: 10/19/17 17:42 Dose: Not Given Ropinirole HCl (Requip) 3 mg PO HS [facility] Last Admin: 10/19/17 22:00 Dose: Not Given Tiotropium [place] (Spiriva) 18 mcg INH DAILY [facility] Last Admin: 10/19/17 17:43 Dose: Not Given - Labs Labs: 10/20/17 06:20 10/18/17 06:45 - Constitutional Appears: No Acute Distress - Head Exam Head Exam: NORMOCEPHALIC - Eye Exam Eye Exam: Normal appearance - ENT Exam ENT Exam: Mucous Membranes Moist - Respiratory Exam Respiratory Exam: Decreased Breath Sounds, Clear to Ausculation Bilateral, NORMAL BREATHING PATTERN - Cardiovascular Exam Cardiovascular Exam: +S1, +S2 - GI/Abdominal Exam GI & Abdominal Exam: Soft, Normal Bowel Sounds - Extremities Exam Extremities Exam: Normal Capillary Refill - Neurological Exam Neurological Exam: Alert, Awake, Oriented x3 - Psychiatric Exam Psychiatric exam: Normal Affect - Skin Skin Exam: Dry, Normal Color, Warm Assessment and Plan - Assessment and Plan (Free Text) Assessment: A 72 year old female who was initially admiitted on 10/03/17 for exacerbation of COPD and positive troponins. Cardiac cath was done and revealed non obstructive coronary artery disease. She was managed and treated medically. MUGA scan showed LVEF of 60%. She was transferred to TCU for reconditioning and physical therapy. While in TCU, very sleepy and ABG was done and showed CO2 of 94 consistent with CO2 narcosis. She was transferred to ICU and was eventually intubated. Respiratory improved and was extubated and transferred to telemetry. History of coronary artery disease with multiple stents,COPD (home oxygen), NSTEMI, asthma, bronchitis,hypertension, hyperlipidemia. Plan: Son at bedside No distress Sitting in bed On nasal cannula Cardiac status stable Stable heart rate and blood pressure Glucose control Continue current treatment Continue current medications Physical therapy Will follow up Plan and treatment discussed with Dr. Henry
[2017-10-20] MEDS: Tiotropium 18 mcg Cap For Inhalation INH SCH (09:56)
[2017-10-20] MEDS: Insulin Reg-LOW-Coverage SC SCH ×4 (09:56→22:13)
[2017-10-20] MEDS: Magnesium Oxide 400 mg Tab UD PO SCH ×2 (09:57→18:09)
[2017-10-20] MEDS: Pantoprazole 40 mg EC Tab PO SCH (09:58)
[2017-10-20] MEDS: Metoprolol Succinate 50 mg XL Tab PO SCH (09:58)
--- NOTE | 2017-10-20 13:14 | PN ---
DATE: 10/20/2017 SUBJECTIVE: The patient is in bed in room 276. Seen earlier this morning. No fevers and chills. PHYSICAL EXAMINATION: VITAL SIGNS: Temperature is 97, blood pressure is 120/70, and respiratory rate of 16. HEENT: Unremarkable. NECK: Supple. LUNGS: Have decreased breath sounds. HEART: Normal S1, S2. ABDOMEN: Soft, nontender. LABORATORY DATA: Laboratory examination reveals a white count of 10,000, hemoglobin of 10. The chemistries are noted with the creatinine of 0.8. Microbiology is noted with Pseudomonas from tracheal cultures. Of note, that the patient's procalcitonin is normal at 0.43. Review of orders reveals the patient to be on meropenem. ASSESSMENT AND PLAN: This is a 72-year-old female, known from previous admissions, admitted now with severe sepsis, status post shock, ventilatory-dependent respiratory failure due to probable bilateral community-acquired pneumonia with Pseudomonas. Multidrug-resistant from the sputum. History of severe sepsis with Pseudomonas healthcare-associated pneumonia, history of multifocal community-acquired pneumonia and end-stage chronic obstructive lung disease, history of pulmonary nodules, diabetes, hypertension, cardiac disease, cardiac stents, on day #5 of meropenem. The patient's chest x-ray on 10/16/2017 is reviewed. Long-term prognosis for this patient who has end-stage lung disease is quite poor. We will complete a short course of meropenem. Thaddeus Ely MD
--- NOTE | 2017-10-20 13:14 | PN ---
DATE: 10/20/2017 PULMONARY PROGRESS NOTE SUBJECTIVE: Patient was seen and examined at bedtime. She is currently on BiPAP. She is less short of breath. She is not in respiratory distress, so it is a big difference between yesterday and today. She is receiving inhalation treatments with DuoNeb. She also received budesonide. She is on Spiriva. PHYSICAL EXAMINATION: VITAL SIGNS: Her temperature is 97, pulse 98, respirations 20, pulse oximetry is 99% on BiPAP, blood pressure is 150/82. HEENT: Head, normocephalic and atraumatic. NECK: Supple. There is no jugular vein distention. CARDIOVASCULAR: S1, S2. No S3, regular. PULMONARY: Markedly diminished breath sounds bilaterally with a few expiratory wheezes and moderately severe airway obstruction. GASTROINTESTINAL: Soft, nontender. No organomegaly. EXTREMITIES: No pedal edema. No cyanosis. SKIN: No acute skin rash. NEUROLOGIC: Limited at present time. LABORATORY DATA: Reviewed. CBC shows WBC of 10, hemoglobin of 10.2, platelet count is 179,000. ASSESSMENT: 1. Exacerbation of severe chronic obstructive pulmonary disease. 2. Chronic respiratory failure. 3. Bilevel positive airway pressure dependency. 4. Hypoxia. 5. Anxiety. PLAN: Patient improved compared to yesterday with application of BiPAP around the clock except for meals. She is going on nasal cannula for meals and then, back to BiPAP. She needs respiratory support around the clock since she is in chronic respiratory failure. Her condition has improved, but prognosis remains extremely guarded. We will continue her maximum bronchodilator therapy as prescribed. Yossi Granda MD
[2017-10-20] MEDS ORDERED: Insulin Regular 1 UNITS/0.01 ML ML SC ONE (19:44)
--- NOTE | 2017-10-20 23:13 | PN ---
DATE: 10/20/2017 SUBJECTIVE: She has mild respiratory distress. Currently on IV antibiotic, meropenem. No fever, no cough with expectoration. Blood sugars are uncontrolled. She is on sliding scale insulin. She is also on steroids for terminal COPD. REVIEW OF SYSTEMS: As per HPI. Rest of 12-point review of systems reviewed negative. PHYSICAL EXAMINATION: GENERAL: Mild respiratory distress. VITAL SIGNS: Respiratory 20 per minute, temperature 98.5, heart rate is 100 per minute and oxygen saturation 95% oxygen by nasal cannula. HEENT: No pallor. NECK: No lymphadenopathy. CHEST: Air entry present and equal bilateral. Crepitations present at the bases. ABDOMEN: Soft, nontender. No hepatosplenomegaly. EXTREMITY: 1+ edema. 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 No focal, sensory or motor deficit. SKIN: No petechiae. No rash. ASSESSMENT AND PLAN: 1. Terminal chronic obstructive pulmonary disease. 2. Recurrent pneumonias, recurrent infection. 3. Failure to thrive. 4. Uncontrolled diabetes mellitus. PLAN: Family decided home hospice. Arrangements are being made to be discharged on Sunday. We will give fixed dose of insulin,3 units subcu before lunch and at bedtime. Discontinue the fingersticks. Discontinue all the labs. We will continue all current medications. Pulmonary, Dr. Soloiro, Dr. Ely notes reviewed. Family member at bedside. Discussed with the staff nurse. Jazz Klein MD
--- NOTE | 2017-10-21 00:04 | PN ---
DATE OF EVALUATION: 10/19/2017 SUBJECTIVE: She is in mild respiratory distress. Alert, oriented and communicative. Appetite is poor. Denies any chest pain. No cough with expectoration. No fever. No events overnight. Medications reviewed. REVIEW OF SYSTEMS: As per HPI, rest of 12-point review of systems reviewed and negative. PHYSICAL EXAMINATION GENERAL: In respiratory distress. VITAL SIGNS: Respiratory rate 30 per minute, blood pressure 120/70, temperature 98.7, oxygen saturation 95% on oxygen by nasal cannula. HEENT: Pallor positive. Oral mucosa dry. CHEST: Crepitations present both bases. CARDIOVASCULAR: Tachycardia present. ABDOMEN: Soft, nontender. No hepatosplenomegaly. EXTREMITIES: No edema. SPINE: Nontender. LABORATORY DATA: White count 14,000, hemoglobin 10.9, hematocrit 36.4 and platelet count 239. Glucose is 336. MEDICATIONS: Reviewed. Meropenem IV, lisinopril 30 mg daily, Imdur 60 daily, sliding scale insulin, hydralazine, prednisone 20 mg daily, Requip 3 p.o. at bedtime, Spiriva 18 mcg inhalation scheduled, Protonix 40 mg daily and Plavix 75 mg daily. ASSESSMENT: 1. Terminal chronic obstructive pulmonary disease. 2. Pulmonary fibrosis. 3. History of multiple pneumonias. 4. Failure to thrive. PLAN: Currently completed day #[address] Ely's note reviewed. Pulmonary Dr. Granda's note reviewed. Leukocytosis is resolving with IV antibiotics. Family is at bedside. They decided to go on home hospice. Hospice service is called. Discussion done with financial aid coordinator. There will be a family meeting today between financial aid coordinator and hospice nurse. The patient is agreed for home hospice also and arrangements being made for discharge probably Sunday to home. Discussed with staff nurse. Jazz Klein MD
[2017-10-21] MEDS: Albuterol-Ipratrop 3 mg / 0.5 (3 ml) UD IH SCH ×4 (02:30→19:34)
[2017-10-21 05:53] LABS: HEMOGLOBIN 11.2 g/dL (12.0-16.0); MEAN CELL VOLUME 88.3 fl (80.0-105.0); MEAN CORPUSCULAR HEMOGLOBIN 26.2 pg (25.0-35.0); MEAN CORPUSCULAR HGB CONC 29.7 g/dl (31.0-37.0); MEAN PLATELET VOLUME 9.8 fl (7.0-11.0); RBC 4.27 10^6/uL (3.5-6.1); RED CELL DISTRIBUTION WIDTH 17.4 % (11.5-14.5)
[2017-10-21] MEDS: Meropenem IV 1 gm in NS 50 ML IVPB SCH ×3 (05:54→21:41)
[2017-10-21 06:21] LABS: WHITE BLOOD COUNT 25.1 10^3/ul (4.5-11.0)
[2017-10-21] MEDS: Arformoterol 15 mcg/2 ml Inh Sol IH SCH ×2 (07:35→19:34)
[2017-10-21] MEDS: Budesonide 0.5 mg/2 ml Inhal Susp UD IH SCH ×2 (07:35→19:34)
--- NOTE | 2017-10-21 07:51 | CP.PCM.PN ---
Subjective - Date & Time of Evaluation Date of Evaluation: 10/21/17 Time of Evaluation: 06:25 - Subjective Subjective: sleeping, BIPAP in use, son at bedside claimed she did not sleep well Reason for consultation and follow up: Cardiac follow up post respiratory failure, post intubation, history of coronary artery disease with stents, hyperlipidemia,COPD,asthma, Seen and examined by me and Dr. Henry Objective - Vital Signs/Intake and Output Vital Signs (last 24 hours): Temp Pulse Resp BP Pulse Ox 97.8 F 105 H 20 171/85 H 96 10/21/17 06:00 10/21/17 06:00 10/21/17 06:00 10/21/17 06:00 10/21/17 06:00 Intake and Output: 10/21/17 10/21/17 06:59 18:59 Intake Total 100 Output Total 300 Balance -200 - Medications Medications: Current Medications Acetaminophen (Tylenol 325mg Tab) 650 mg PO Q6H PRN PRN Reason: Fever >100.5 F Acetaminophen (Tylenol 325mg Tab) 650 mg PO Q6H PRN PRN Reason: Pain, Mild (1-3) Last Admin: 10/18/17 16:34 Dose: 650 mg Albuterol/Ipratropium (Duoneb 3 Mg/0.5 Mg (3 Ml) Ud) 3 ml IH [id number] [facility] Last Admin: 10/21/17 02:30 Dose: 3 ml Albuterol/Ipratropium (Duoneb 3 Mg/0.5 Mg (3 Ml) Ud) 3 ml IH Q2H PRN PRN Reason: Shortness of Breath Last Admin: 10/18/17 11:24 Dose: 3 ml Allopurinol (Zyloprim) 300 mg PO DAILY [facility] Last Admin: 10/20/17 09:58 Dose: 300 mg Arformoterol Tartrate (Brovana) 15 mcg IH [id number] [facility] Last Admin: 10/20/17 07:41 Dose: 15 mcg Aspirin (Ecotrin) 81 mg PO DAILY [facility] Last Admin: 10/20/17 09:58 Dose: 81 mg Atorvastatin Calcium (Lipitor) 20 mg PO DAILY [facility] Last Admin: 10/20/17 09:58 Dose: 20 mg Benzocaine/Menthol (Cepacol Sore Throat) 1 jack MT Q2H PRN PRN Reason: Sore Throat Last Admin: 10/17/17 21:41 Dose: 1 jack Budesonide (Pulmicort Respules) 0.5 mg IH [id number] [facility] Last Admin: 10/20/17 19:33 Dose: 0.5 mg Clonazepam (Klonopin) 0.5 mg PO BID PRN; Protocol PRN Reason: Anxiety Last Admin: 10/18/17 12:04 Dose: 0.5 mg Clopidogrel Bisulfate (Plavix) 75 mg PO DAILY [facility] Last Admin: 10/20/17 09:57 Dose: 75 mg Furosemide (Lasix) 40 mg PO DAILY [facility] Last Admin: 10/20/17 09:58 Dose: 40 mg Gabapentin (Neurontin) 200 mg PO TID [facility] PRN Reason: Protocol Last Admin: 10/20/17 18:08 Dose: 200 mg Heparin Sodium (Porcine) (Heparin) 5,000 units SC Q8 [facility] PRN Reason: Protocol Last Admin: 10/21/17 05:54 Dose: 5,000 units Hydralazine HCl (Apresoline) 10 mg PO QID PRN PRN Reason: for sbp>160 Meropenem (Merrem Iv 1 Gm Premix) 50 mls @ 100 mls/hr IVPB Q8 [facility] PRN Reason: Protocol Stop: 10/27/17 14:01 Last Admin: 10/21/17 05:54 Dose: 100 mls/hr Insulin Human Regular (Humulin R) 3 units SC ACHS [facility] Isosorbide Mononitrate (Imdur) 60 mg PO DAILY [facility] Last Admin: 10/20/17 09:57 Dose: 60 mg Lisinopril (Zestril) 30 mg PO DAILY [facility] Last Admin: 10/20/17 09:59 Dose: 30 mg Magnesium Oxide (Mag-Ox) 400 mg PO BID [facility] Last Admin: 10/20/17 18:09 Dose: 400 mg Metoprolol Succinate (Toprol Xl) 50 mg PO DAILY [facility] Last Admin: 10/20/17 09:58 Dose: 50 mg Pantoprazole Sodium (Protonix Ec Tab) 40 mg PO ACB [facility] Last Admin: 10/20/17 09:58 Dose: 40 mg Prednisone (Prednisone Tab) 20 mg PO DAILY [facility] Last Admin: 10/20/17 09:58 Dose: 20 mg Ropinirole HCl (Requip) 3 mg PO HS [facility] Last Admin: 10/20/17 22:18 Dose: 3 mg Tiotropium [place] (Spiriva) 18 mcg INH DAILY [facility] Last Admin: 10/20/17 09:56 Dose: 18 mcg - Labs Labs: 10/21/17 05:40 10/18/17 06:45 - Constitutional Appears: No Acute Distress - ENT Exam ENT Exam: Mucous Membranes Moist - Respiratory Exam Respiratory Exam: Decreased Breath Sounds, NORMAL BREATHING PATTERN Additional comments: BIPAP/CPAP, crackles - Cardiovascular Exam Cardiovascular Exam: +S1, +S2 Additional comments: NSR telemetry 90's - GI/Abdominal Exam GI & Abdominal Exam: Soft, Normal Bowel Sounds - Exam Additional comments: continent - Extremities Exam Extremities Exam: Normal Capillary Refill - Neurological Exam Neurological Exam: Alert, Awake, Oriented x3 - Psychiatric Exam Psychiatric exam: Normal Affect - Skin Skin Exam: Dry, Warm Assessment and Plan - Assessment and Plan (Free Text) Assessment: A 72 year old female who was initially admiitted on 10/03/17 for exacerbation of COPD and positive troponins. Cardiac cath was done and revealed non obstructive coronary artery disease. She was managed and treated medically. MUGA scan showed LVEF of 60%. She was transferred to TCU for reconditioning and physical therapy. While in TCU, very sleepy and ABG was done and showed CO2 of 94 consistent with CO2 narcosis. She was transferred to ICU and was eventually intubated. Respiratory improved and was extubated and transferred to telemetry. History of coronary artery disease with multiple stents,COPD (home oxygen), NSTEMI, asthma, bronchitis,hypertension, hyperlipidemia. Plan: BIPAP in use Son at bedside, unable to sleep last night No distress Cardiac status stable Stable heart rate and blood pressure Discontinue telemetry Home hospice on Sunday per social service Glucose control Continue current treatment Continue current medications Physical therapy Will follow up Plan and treatment discussed with Dr. Henry
[2017-10-21 08:28] LABS: ALB/GLOB RATIO 0.9 (1.1-1.8); ALBUMIN 3.1 g/dL (3.0-4.8); ALT/SGPT 82 U/L (7-56); AST/SGOT 43 U/L (14-36); BLOOD UREA NITROGEN 43 mg/dL (7-21); CALCIUM 8.8 mg/dL (8.4-10.5); GFR AFRICAN-AMERICAN > 60; GFR NON-AFRICAN AMERICAN > 60
--- NOTE | 2017-10-21 11:38 | PN ---
DATE: 10/21/2017 FOLLOWUP NOTE SUBJECTIVE: She is sitting comfortably in bed, in no acute distress. Baseline shortness of breath with respiratory distress, mild. Appetite is fairly good. She is able to eat and drink. No nausea. No vomiting. Denies any pain. REVIEW OF SYSTEMS: As per HPI. Rest of 12-point review of systems reviewed negative. PHYSICAL EXAMINATION: VITAL SIGNS: Heart rate is 96 per minute, temperature 97.8, blood pressure 170/85, respiratory rate 16 per minute, oxygen saturation 30% on room air. HEENT: Pallor positive. NECK: No lymphadenopathy. CHEST: Air entry present and equal bilaterally. No added sound. CARDIOVASCULAR: S1, S2 normal. No murmur, no gallop. ABDOMEN: Soft, nontender. No hepatosplenomegaly. EXTREMITIES: No edema. CONSERVATION ENFORCEMENT OFFICER: Alert, oriented x3. No focal sensorimotor deficit. LABORATORY DATA: Labs reviewed. MEDICATIONS: Reviewed. ASSESSMENT: 1. Terminal chronic obstructive pulmonary disease. 2. Respiratory failure. 3. Leukocytosis. 4. Failure to thrive. PLAN: We will continue current medications. She is getting bronchodilators, Brovana, DuoNebs. Continue Lipitor 20 mg daily. Continue Klonopin 0.5 mg p.o. b.i.d. p.r.n. for anxiety. Aggressively diurese. Lasix 40 mg daily, clopidogrel 75 mg daily, Neurontin, lisinopril 30 mg daily, prednisone 20 mg daily, Requip 3 mg p.o. at bedtime. Jazz Klein MD
[2017-10-21] MEDS: Insulin Regular 1 UNITS/0.01 ML ML SC SCH ×3 (11:53→21:39)
[2017-10-21] MEDS: Pantoprazole 40 mg EC Tab PO SCH (11:55)
[2017-10-21] MEDS: Metoprolol Succinate 50 mg XL Tab PO SCH (11:55)
[2017-10-21] MEDS: Tiotropium 18 mcg Cap For Inhalation INH SCH (11:55)
[2017-10-21] MEDS: Magnesium Oxide 400 mg Tab UD PO SCH ×2 (11:55→18:39)
--- NOTE | 2017-10-21 12:54 | PN ---
DATE: 10/21/2017 PULMONARY PROGRESS NOTE SUBJECTIVE: Patient was seen and examined at bedside. She is receiving respiratory treatment right now. She is coughing productively and sounds congested. PHYSICAL EXAMINATION: VITAL SIGNS: Pulse 100, respirations 20, pulse oximetry is 96% on BiPAP, blood pressure is 170/85. HEENT: Head, normocephalic and atraumatic. NECK: Supple. There is no jugular vein distention. CARDIOVASCULAR: S1, S2. No S3, irregular. PULMONARY: Diminished breath sounds bilaterally, coarse rhonchi in the upper airway and expiratory wheezes throughout both lungs. GASTROINTESTINAL: Soft, nontender. No organomegaly. EXTREMITIES: No pedal edema. No cyanosis. SKIN: Clear with no skin rash. NEUROLOGIC: Limited at present time. ASSESSMENT: 1. Acute on chronic respiratory failure. 2. Exacerbation of severe chronic obstructive pulmonary disease. 3. Respiratory acidosis. 4. Hypoxia. 5. Bilevel positive airway pressure dependency. PLAN: I have reviewed patient's today's laboratory data. Her white count is elevated to 25.1, hemoglobin was 11.2, platelet count is 273,000. She is doing reasonably well on BiPAP and now keeping BiPAP on not only at night, but throughout the day. The BiPAP is off only for meals and inhalation treatments. She is becoming used to BiPAP and dependent on it. Her end-stage lung disease presents diagnostic and therapeutic challenge, elevated white count may require change or new antibiotics. We will discuss further with attending and consultants. Otherwise, her respiratory status is stable. Yossi Granda MD [facility]
--- NOTE | 2017-10-21 14:10 | PN ---
DATE: 10/21/2017 SUBJECTIVE: The patient is in bed, in no acute distress, nontoxic. OBJECTIVE: VITAL SIGNS: On exam, temperature is 98, blood pressure is 170/80, respiratory rate 20, heart rate of 105. HEENT: Examination is unremarkable. NECK: Supple. LUNGS: Have decreased breath sounds. HEART: Normal S1, S2. ABDOMEN: Soft, nontender. DATA: Laboratory examination reveals a white count of 25,000, hemoglobin 11, platelets of 273. Chemistries reveal a BUN of 43, creatinine of 0.7 and cultures are reviewed. Review of orders reveals the patient to have to be on meropenem. ASSESSMENT AND PLAN: This is a 72-year-old admitted now with severe sepsis, status post shock, ventilator-dependent respiratory failure due to probable bilateral community-acquired pneumonia with Pseudomonas and multi drug from the sputum and with a history of severe sepsis and Pseudomonas healthcare-associated pneumonia, multifocal community-acquired pneumonia, end-stage chronic obstructive lung disease, history of pulmonary nodules, diabetes, hypertension, cardiac disease, cardiac stents, day #6 of meropenem. The patient was seen early this morning with family member at the bedside who states that the patient continues to be weak and the patient is on prednisone and meropenem. We will follow with you. Overall prognosis quite poor for this end-stage patient. Thaddeus Ely MD
[2017-10-21 17:03] LABS: ARTERIAL BLOOD GAS O2 SAT 89.8 % (95-98); ARTERIAL BLOOD GAS PCO2 84 mm/Hg (35-45); ARTERIAL BLOOD GAS PH 7.44 (7.35-7.45); ARTERIAL BLOOD GAS TCO2 59.7 mmol.L (22-28)
[2017-10-21 17:05] LABS: ARTERIAL BLOOD GAS HCO3 57.1 mmol/L (21-28)
--- NOTE | 2017-10-21 17:33 | PCM.RRT ---
<Michael Ireland - Last Filed: 10/21/17 20:35> GRAIN GRADER Nurse Assessment - Situation Date: 10/21/17 Time GRAIN GRADER was called: 16:43 GRAIN GRADER Responder Arrival Time: 16:45 GRAIN GRADER Location:: [address] [place] [address] Room Number: 276-1 GRAIN GRADER Reason for Call: Change in Mental Status GRAIN GRADER Called By: Other Disciplines - IV IV Inserted during GRAIN GRADER?: No - Respiratory Oxygen Delivery Method: BiPAP @% Received Nebulizer Treatments:: No Was the Patient Ventilated with Bag/Mask 100% O2?: No Secretions Suctioned?: No Was the Patient Intubated?: No Was the Patient Placed on a Ventilator?: No - Medication Medications Administered During GRAIN GRADER: None - Diagnostic Test Ordered EKG: No Chest X-Ray: No CT Scan: No - Stat Labs Ordered GRAIN GRADER Stat Labs Ordered: ABG CPR started during GRAIN GRADER?: No - Vital Signs Vital Sign: Rapid Response Vital Sign Blood Pressure 165/88 Pulse Rate 100 Temperature 98.8 F - Finger Stick Blood Glucose Finger Stick Blood Glucose: 413 - Recommendations Notifications: Attending Physician, Family or Designated Caregiver I.Reason for GRAIN GRADER - A) Acute Change in Patient: Subjective: Pt is a 72 yo F who was originally admitted due to acute respiratory failure secondary to terminal chronic respiratory failure. Rapid response was called at 4:43 pm due to patient being unresponsive for 2-3 minutes per nurse and family. On response, patient was awake and able to answer simple questioning. Patient stated she had some abdominal pain and shortness of breath. But denied CP, n/v/d , fever, chills, ARROYO, or dizziness. Respiratory therapist was at bedside, who administered BIPAP with improvement of her symptoms. - Respiratory Oxygen Delivery Method: BiPAP @% - Constitutional Appears: Chronically Ill - Head Head Exam: NORMAL INSPECTION - Eyes Eye Exam: Normal appearance - Respiratory Exam Respiratory Exam: Decreased Breath Sounds. absent: Rales, Rhonchi, Wheezes - Cardiovascular Exam Cardiovascular Exam: Tachycardia, +S1, +S2. absent: Gallop, Rubs, Murmur - GI/Abdominal Exam GI & Abdominal Exam: Soft, Tenderness. absent: Distended, Guarding, Rebound - Neurological Exam Neurological Exam: Alert, Awake, Oriented x3 - Extremities Exam Extremities Exam: Normal Inspection Plan - Assessment of Findings&Treatment Plan 72 yo F admitted for terminal COPD, respiratory failure. GRAIN GRADER called for unresponsiveness. Plan: - ABG - metabolic alkalosis, pCO2 84 - Primary contacted - Pulm contacted - continuous BIPAP except for meals and nebs; medical therapy maxed out - ID contacted - CXR, Vanco, panculture, procal <Hernan Degroot - Last Filed: 10/22/17 08:43> GRAIN GRADER Nurse Assessment - Vital Signs Vital Sign: Rapid Response Vital Sign Blood Pressure 165/88 Pulse Rate 100 Temperature 98.8 F Attending/Attestation - Attestation I have personally seen and examined this patient.: Yes I have fully participated in the care of the patient.: Yes I have reviewed all pertinent clinical information, including history, physical exam and plan: Yes Notes (Text): 10/21/17 GRAIN GRADER called for brief episode of unresponsiveness, resolved upon response. ABG reviewed with mail teller; recommended BIPAP. ID follow up requested for leukocytosis.
[2017-10-21] MEDS ORDERED: Vancomycin 1gm in NS 250ml 1 GM/250 ML BAG IVPB SCH (18:45)
[2017-10-22] MEDS: Albuterol-Ipratrop 3 mg / 0.5 (3 ml) UD IH SCH ×3 (01:30→14:06)
[2017-10-22] MEDS: Meropenem IV 1 gm in NS 50 ML IVPB SCH ×3 (05:25→15:01)
[2017-10-22] MEDS ORDERED: Vancomycin 1gm in NS 250ml 1 GM/250 ML BAG IVPB SCH (05:28)
[2017-10-22 06:10] VITALS: O2SAT 94
[2017-10-22] MEDS: Albuterol-Ipratrop 3 mg / 0.5 (3 ml) UD IH PRN ×2 (06:10→11:17)
--- NOTE | 2017-10-22 07:46 | CP.PCM.PN ---
Subjective - Date & Time of Evaluation Date of Evaluation: 10/22/17 Time of Evaluation: 06:35 - Subjective Subjective: Awake, sitting in bed, at bedside,on nasal cannula Reason for consultation and follow up: Cardiac follow up post respiratory failure, post intubation, history of coronary artery disease with stents, hyperlipidemia,COPD,asthma, Seen and examined by me and Dr. Henry Objective - Vital Signs/Intake and Output Vital Signs (last 24 hours): Temp Pulse Resp BP Pulse Ox 97.7 F 114 H 23 178/106 H 94 L 10/22/17 06:00 10/22/17 06:00 10/22/17 06:00 10/22/17 06:00 10/22/17 06:00 Intake and Output: 10/22/17 10/22/17 06:59 18:59 Intake Total 690 Output Total 300 Balance 390 - Medications Medications: Current Medications Acetaminophen (Tylenol 325mg Tab) 650 mg PO Q6H PRN PRN Reason: Fever >100.5 F Acetaminophen (Tylenol 325mg Tab) 650 mg PO Q6H PRN PRN Reason: Pain, Mild (1-3) Last Admin: 10/21/17 11:28 Dose: 650 mg Albuterol/Ipratropium (Duoneb 3 Mg/0.5 Mg (3 Ml) Ud) 3 ml IH [id number] [facility] Last Admin: 10/22/17 01:30 Dose: 3 ml Albuterol/Ipratropium (Duoneb 3 Mg/0.5 Mg (3 Ml) Ud) 3 ml IH Q2H PRN PRN Reason: Shortness of Breath Last Admin: 10/18/17 11:24 Dose: 3 ml Allopurinol (Zyloprim) 300 mg PO DAILY [facility] Last Admin: 10/21/17 11:55 Dose: 300 mg Arformoterol Tartrate (Brovana) 15 mcg IH [id number] [facility] Last Admin: 10/21/17 19:34 Dose: 15 mcg Aspirin (Ecotrin) 81 mg PO DAILY [facility] Last Admin: 10/21/17 11:56 Dose: 81 mg Atorvastatin Calcium (Lipitor) 20 mg PO DAILY [facility] Last Admin: 10/21/17 11:56 Dose: 20 mg Benzocaine/Menthol (Cepacol Sore Throat) 1 jack MT Q2H PRN PRN Reason: Sore Throat Last Admin: 10/17/17 21:41 Dose: 1 jack Budesonide (Pulmicort Respules) 0.5 mg IH [id number] [facility] Last Admin: 10/21/17 19:34 Dose: 0.5 mg Clonazepam (Klonopin) 0.5 mg PO BID PRN; Protocol PRN Reason: Anxiety Last Admin: 10/18/17 12:04 Dose: 0.5 mg Clopidogrel Bisulfate (Plavix) 75 mg PO DAILY [facility] Last Admin: 10/21/17 11:55 Dose: 75 mg Furosemide (Lasix) 40 mg PO DAILY [facility] Last Admin: 10/21/17 11:55 Dose: 40 mg Gabapentin (Neurontin) 200 mg PO TID [facility] PRN Reason: Protocol Last Admin: 10/21/17 18:39 Dose: Not Given Heparin Sodium (Porcine) (Heparin) 5,000 units SC Q8 [facility] PRN Reason: Protocol Last Admin: 10/22/17 05:24 Dose: 5,000 units Hydralazine HCl (Apresoline) 10 mg PO QID PRN PRN Reason: for sbp>160 Last Admin: 10/22/17 05:25 Dose: 10 mg Meropenem (Merrem Iv 1 Gm Premix) 50 mls @ 100 mls/hr IVPB Q8 [facility] PRN Reason: Protocol Stop: 10/27/17 14:01 Last Admin: 10/22/17 05:25 Dose: 100 mls/hr Vancomycin HCl (Vancomycin 1gm) 1 gm in 250 mls @ 167 mls/hr IVPB Q12 [facility] PRN Reason: Protocol Insulin Human Regular (Humulin R) 3 units SC ACHS [facility] Last Admin: 10/21/17 21:39 Dose: 3 units Isosorbide Mononitrate (Imdur) 60 mg PO DAILY [facility] Last Admin: 10/21/17 11:56 Dose: 60 mg Lisinopril (Zestril) 30 mg PO DAILY [facility] Last Admin: 10/21/17 11:54 Dose: 30 mg Magnesium Oxide (Mag-Ox) 400 mg PO BID [facility] Last Admin: 10/21/17 18:39 Dose: Not Given Metoprolol Succinate (Toprol Xl) 50 mg PO DAILY [facility] Last Admin: 10/21/17 11:55 Dose: 50 mg Pantoprazole Sodium (Protonix Ec Tab) 40 mg PO ACB [facility] Last Admin: 10/21/17 11:55 Dose: 40 mg Prednisone (Prednisone Tab) 20 mg PO DAILY [facility] Last Admin: 10/21/17 11:56 Dose: 20 mg Ropinirole HCl (Requip) 3 mg PO HS [facility] Last Admin: 10/21/17 21:42 Dose: 3 mg Tiotropium [place] (Spiriva) 18 mcg INH DAILY [facility] Last Admin: 10/21/17 11:55 Dose: 18 mcg - Labs Labs: 10/21/17 05:40 10/21/17 05:40 - Constitutional Appears: No Acute Distress - Eye Exam Eye Exam: Normal appearance - ENT Exam ENT Exam: Mucous Membranes Moist - Respiratory Exam Respiratory Exam: Decreased Breath Sounds, NORMAL BREATHING PATTERN Additional comments: Nasal cannula BIPAP/CPAP at night crackles at bases - Cardiovascular Exam Cardiovascular Exam: +S1, +S2 - GI/Abdominal Exam GI & Abdominal Exam: Soft, Normal Bowel Sounds - Extremities Exam Extremities Exam: Normal Capillary Refill - Neurological Exam Neurological Exam: Alert, Awake, Oriented x3 - Skin Skin Exam: Dry, Warm Assessment and Plan - Assessment and Plan (Free Text) Assessment: A 72 year old female who was initially admiitted on 10/03/17 for exacerbation of COPD and positive troponins. Cardiac cath was done and revealed non obstructive coronary artery disease. She was managed and treated medically. MUGA scan showed LVEF of 60%. She was transferred to TCU for reconditioning and physical therapy. While in TCU, very sleepy and ABG was done and showed CO2 of 94 consistent with CO2 narcosis. She was transferred to ICU and was eventually intubated. Respiratory improved and was extubated and transferred to telemetry. History of coronary artery disease with multiple stents,COPD (home oxygen), NSTEMI, asthma, bronchitis,hypertension, hyperlipidemia. DNR/DNI. Referred to home hospice. Plan: Post MACHINE ZIPPER TRIMMER yesterday for unresponsiveness ABG showed high CO2 84- PO2-52,PH 7.44 Placed on BIPAP/CPAP continously Transferred to telemetry 2nd floor at bedside, patient feels much better this morning No distress Elevated blood pressure, will give Hydralazine PRN Home hospice per social service Glucose control Continue current treatment Continue current medications Physical therapy Will follow up Plan and treatment discussed with Dr. Henry
[2017-10-22] MEDS: Arformoterol 15 mcg/2 ml Inh Sol IH SCH (08:11)
[2017-10-22] MEDS: Budesonide 0.5 mg/2 ml Inhal Susp UD IH SCH (08:12)
--- NOTE | 2017-10-22 08:20 | PN ---
DATE: 10/22/2017 PULMONARY NOTE SUBJECTIVE: The patient is mildly short of breath at the present time. She is in no acute distress. PHYSICAL EXAMINATION: VITAL SIGNS: Temperature is 97.7, pulse 114, respirations 20/22, blood pressure 178/106. Oxygen saturation on BiPAP is 94-97%. HEENT: Normocephalic, atraumatic. No JVD. CARDIOVASCULAR: Systolic ejection murmur at the lower left sternal border. No S3 gallop. LUNGS: Crackles at both bases - chronic. Mild bilateral rhonchi. No wheezing. EXTREMITIES: Mild edema. No cyanosis. No clubbing. Calves are nontender to palpation. GI: Abdomen is soft, nontender and nondistended. Bowel sounds are positive. SKIN: No acute rash. NEUROLOGIC: Limited at the present time. IMPRESSION: 1. Recurrent respiratory failure. 2. Recurrent bronchitis. 3. End-stage chronic obstructive pulmonary disease. 4. Advanced interstitial lung disease. 5. Extensive coronary artery disease, status post recent myocardial infarction. 6. Mild anemia. PLAN: The patient appears mildly short of breath this morning. She is certainly in no acute distress. She is awake and alert. On physical exam, there is only mild bronchospasm noted. I will continue with the current nebulizer treatments and low-dose oral steroids for now. I did discuss the case with the night nurse at length. The night nurse stated that the patient remains on BiPAP most of the day and night. The night nurse also stated that the patient is for probable home hospice transfer today. Unfortunately, the overall status/prognosis for this patient continues to worsen, and remains very poor. I will discuss the above with the attending physician later this morning. Randell Becker MD [facility]
[2017-10-22] MEDS: Insulin Regular 1 UNITS/0.01 ML ML SC SCH ×2 (08:32→12:10)
--- NOTE | 2017-10-22 09:01 | RAD ---
Date of service: 10/21/2017 HISTORY: sob COMPARISON: 10/16/2017 FINDINGS: LUNGS: No change in nodular interstitial infiltrate most severe in the right lower lobe. There is a new right-sided PICC line that terminates at the caval atrial junction PLEURA: No significant pleural effusion identified, no pneumothorax apparent. CARDIOVASCULAR: Normal. OSSEOUS STRUCTURES: No significant abnormalities. VISUALIZED UPPER ABDOMEN: Normal. OTHER FINDINGS: None. IMPRESSION: No change in nodular interstitial infiltrate most severe in the right lower lobe. There is a new right-sided PICC line that terminates at the caval atrial junction
[2017-10-22] MEDS: Pantoprazole 40 mg EC Tab PO SCH (09:09)
[2017-10-22] MEDS: Magnesium Oxide 400 mg Tab UD PO SCH (09:10)
[2017-10-22] MEDS: Tiotropium 18 mcg Cap For Inhalation INH SCH ×2 (09:10→09:30)
[2017-10-22] MEDS: Metoprolol Succinate 50 mg XL Tab PO SCH (09:10)
[2017-10-22 11:36] VITALS: RESP 18; TEMP 98.5
[2017-10-22 12:58] VITALS: BP 150/80
--- NOTE | 2017-10-22 14:10 | CP.PCM.PN ---
Subjective - Date & Time of Evaluation Date of Evaluation: 10/22/17 Time of Evaluation: 10:50 - Subjective Subjective: No fevers but still with shortness of breath at rest, still with cough. Objective - Vital Signs/Intake and Output Vital Signs (last 24 hours): Temp Pulse Resp BP Pulse Ox 97.7 F 116 H 23 164/90 H 94 L 10/22/17 06:00 10/22/17 08:18 10/22/17 06:00 10/22/17 09:09 10/22/17 06:00 Intake and Output: 10/22/17 10/22/17 06:59 18:59 Intake Total 690 Output Total 300 Balance 390 - Medications Medications: Current Medications Acetaminophen (Tylenol 325mg Tab) 650 mg PO Q6H PRN PRN Reason: Fever >100.5 F Acetaminophen (Tylenol 325mg Tab) 650 mg PO Q6H PRN PRN Reason: Pain, Mild (1-3) Last Admin: 10/21/17 11:28 Dose: 650 mg Albuterol/Ipratropium (Duoneb 3 Mg/0.5 Mg (3 Ml) Ud) 3 ml IH [id number] [facility] Last Admin: 10/22/17 08:11 Dose: 3 ml Albuterol/Ipratropium (Duoneb 3 Mg/0.5 Mg (3 Ml) Ud) 3 ml IH Q2H PRN PRN Reason: Shortness of Breath Last Admin: 10/22/17 06:10 Dose: 3 ml Allopurinol (Zyloprim) 300 mg PO DAILY [facility] Last Admin: 10/22/17 09:10 Dose: 300 mg Arformoterol Tartrate (Brovana) 15 mcg IH [id number] [facility] Last Admin: 10/22/17 08:11 Dose: 15 mcg Aspirin (Ecotrin) 81 mg PO DAILY [facility] Last Admin: 10/22/17 09:10 Dose: 81 mg Atorvastatin Calcium (Lipitor) 20 mg PO DAILY [facility] Last Admin: 10/22/17 09:10 Dose: 20 mg Benzocaine/Menthol (Cepacol Sore Throat) 1 jack MT Q2H PRN PRN Reason: Sore Throat Last Admin: 10/17/17 21:41 Dose: 1 jack Budesonide (Pulmicort Respules) 0.5 mg IH [id number] [facility] Last Admin: 10/22/17 08:12 Dose: 0.5 mg Clonazepam (Klonopin) 0.5 mg PO BID PRN; Protocol PRN Reason: Anxiety Last Admin: 10/18/17 12:04 Dose: 0.5 mg Clopidogrel Bisulfate (Plavix) 75 mg PO DAILY [facility] Last Admin: 10/22/17 09:08 Dose: 75 mg Furosemide (Lasix) 40 mg PO DAILY [facility] Last Admin: 10/22/17 09:09 Dose: 40 mg Gabapentin (Neurontin) 200 mg PO TID BRIANNA PRN Reason: Protocol Last Admin: 10/21/17 18:39 Dose: Not Given Heparin Sodium (Porcine) (Heparin) 5,000 units SC Q8 [facility] PRN Reason: Protocol Last Admin: 10/22/17 05:24 Dose: 5,000 units Hydralazine HCl (Apresoline) 10 mg PO QID PRN PRN Reason: for sbp>160 Last Admin: 10/22/17 05:25 Dose: 10 mg Meropenem (Merrem Iv 1 Gm Premix) 50 mls @ 100 mls/hr IVPB Q8 [facility] PRN Reason: Protocol Stop: 10/27/17 14:01 Last Admin: 10/22/17 05:25 Dose: 100 mls/hr Vancomycin HCl (Vancomycin 1gm) 1 gm in 250 mls @ 167 mls/hr IVPB Q12 [facility] PRN Reason: Protocol Last Admin: 10/22/17 09:11 Dose: 167 mls/hr Insulin Human Regular (Humulin R) 3 units SC ACHS [facility] Last Admin: 10/22/17 08:32 Dose: 3 units Isosorbide Mononitrate (Imdur) 60 mg PO DAILY [facility] Last Admin: 10/22/17 09:09 Dose: 60 mg Lisinopril (Zestril) 30 mg PO DAILY [facility] Last Admin: 10/22/17 09:10 Dose: 30 mg Magnesium Oxide (Mag-Ox) 400 mg PO BID [facility] Last Admin: 10/22/17 09:10 Dose: 400 mg Metoprolol Succinate (Toprol Xl) 50 mg PO DAILY [facility] Last Admin: 10/22/17 09:10 Dose: 50 mg Pantoprazole Sodium (Protonix Ec Tab) 40 mg PO ACB [facility] Last Admin: 10/22/17 09:09 Dose: 40 mg Prednisone (Prednisone Tab) 20 mg PO DAILY [facility] Last Admin: 10/22/17 09:10 Dose: 20 mg Ropinirole HCl (Requip) 3 mg PO HS [facility] Last Admin: 10/21/17 21:42 Dose: 3 mg Tiotropium [place] (Spiriva) 18 mcg INH DAILY [facility] Last Admin: 10/22/17 09:30 Dose: Not Given - Labs Labs: 10/21/17 05:40 10/21/17 05:40 - Constitutional Appears: Chronically Ill - Head Exam Head Exam: NORMAL INSPECTION - Respiratory Exam Respiratory Exam: Decreased Breath Sounds - Cardiovascular Exam Cardiovascular Exam: +S1, +S2 - GI/Abdominal Exam GI & Abdominal Exam: Soft. absent: Tenderness Assessment and Plan - Assessment and Plan (Free Text) Plan: assessment Severe sepsis S/P shock S/P VDRF due to probable bilateral HCAP, now growing Pseudomonas (multidrug-resistant) from the sputum history of severe sepsis from Sphingomonas HCAP history of multifocal community-acquired pneumonia end-stage chronic obstructive pulmonary disease with a history of pulmonary nodules diabetes mellitus coronary artery disease S/P cardiac catheterization and placement of cardiac stents hypertension Questionable history of penicillin allergy (rash) and Doxycycline (although she has tolerated doxycycline in past admissions) Plan will continue Merrem day 7 and gave a dose of IV Amikacin and will continue to monitor kidney function will continue to monitor clinically overall prognosis is poor - discussed with family previously
[2017-10-22 14:12] VITALS: PULSE 110
--- NOTE | 2017-10-22 21:27 | DS ---
HISTORY OF PRESENT ILLNESS: The patient is 72 years old who came in initially with increasing shortness of breath. She was found to have [id number] VT, had cardiac cath done. Was found to be nonocclusive. Did not require any angioplasty. The patient went into respiratory failure, was intubated, but extubated, was sent to TCU for recuperation. She went into CO2 narcosis. She was intubated again and was successfully extubated and transferred to telemetry. Today, she was seen and examined. She is on BiPAP. Yesterday, she decided to go to hospice care. She states she cannot take this anymore. She wants to become stable at home. PHYSICAL EXAMINATION: GENERAL: She is awake, alert, oriented, communicative. VITAL SIGNS: She is afebrile, pulse 112, respirations 18, blood pressure 164/90. LUNGS: Bilateral fair airflow. Bilateral diffusely decreased breath sound. HEART: S1 and S2 audible. Tachycardic. ABDOMEN: Soft. Nontender. No rebound. No guarding. NEUROLOGICAL: She is awake, alert, oriented, communicative. Currently on BiPAP. LABORATORY EXAM: WBC is 25.1, hemoglobin 11.2, hematocrit 37.7, platelet 273. Chemistry: Blood sugar is 292. ASSESSMENT AND PLAN: 1. Terminal chronic obstructive pulmonary disease. 2. [id number] myocardial infarction. 3. Coronary artery disease, status post multiple angioplasty. 4. Hypertension. 5. Hyperlipidemia. 6. Insulin-dependent diabetes. 7. Deconditioning. 8. Leukocytosis, multifactorial secondary to resolving pneumonia and steroid. Currently, the patient is on meropenem. Discussed with the family. They are not really happy that she decided for hospice care; however, the patient states that she wants to go home. We will have another sitting with [facility] to explain them rules about hospice. Once this is finalized, she will be discharged later on today and she will be placed in hospice care once they agree. Ten Sher MD
== END 2017-10-22 16:28 | disposition hospice, home (50) | DRG 871 ==
LOC: CCU 22:54 → 2RSO 10-17 15:46
PROVIDERS: ADMIT Internal Medicine; ATTEND Internal Medicine
PROC: 5A1935Z Respiratory Ventilation, Less than 24 Consecutive Hours (ICD-10-PCS; principal; 2017-10-16)
PROC: 0BH17EZ Insertion of Endotracheal Airway into Trachea, Via Natural or Artificial Opening (ICD-10-PCS; 2017-10-16)
PROC: 5A09557 Assistance with Respiratory Ventilation, Greater than 96 Consecutive Hours, Continuous Positive Airway Pressure (ICD-10-PCS; 2017-10-16)
PROC: 02HV33Z Insertion of Infusion Device into Superior Vena Cava, Percutaneous Approach (ICD-10-PCS; 2017-10-16)
PROC: B54MZZA Ultrasonography of Right Upper Extremity Veins, Guidance (ICD-10-PCS; 2017-10-16)
DX: A41.9 Sepsis, unspecified organism (principal); J15.1 Pneumonia due to Pseudomonas; J96.21 Acute and chronic respiratory failure with hypoxia; J96.22 Acute and chronic respiratory failure with hypercapnia; R65.21 Severe sepsis with septic shock; I21.4 Non-ST elevation (NSTEMI) myocardial infarction; J44.0 Chronic obstructive pulmonary disease with (acute) lower respiratory infection; J44.1 Chronic obstructive pulmonary disease with (acute) exacerbation; N39.0 Urinary tract infection, site not specified; Z99.11 Dependence on respirator [ventilator] status; I25.10 Atherosclerotic heart disease of native coronary artery without angina pectoris; E11.65 Type 2 diabetes mellitus with hyperglycemia; Z66 Do not resuscitate; R62.7 Adult failure to thrive; E78.5 Hyperlipidemia, unspecified; J84.10 Pulmonary fibrosis, unspecified; I10 Essential (primary) hypertension; K43.9 Ventral hernia without obstruction or gangrene; I27.20 Pulmonary hypertension, unspecified; G25.81 Restless legs syndrome; Z51.5 Encounter for palliative care; Z16.24 Resistance to multiple antibiotics; B95.2 Enterococcus as the cause of diseases classified elsewhere; F41.9 Anxiety disorder, unspecified; D64.9 Anemia, unspecified; Z79.4 Long term (current) use of insulin; Z79.02 Long term (current) use of antithrombotics/antiplatelets; Z95.5 Presence of coronary angioplasty implant and graft; Z99.81 Dependence on supplemental oxygen; Z88.0 Allergy status to penicillin